=== PATIENT | female | born 1960 | race African-American/Black ===

== ENCOUNTER 2016-10-28 15:35 | Inpatient (IN) | payer OTHER ==
[2016-10-28 16:07] VITALS: BMI 27.1
--- NOTE | 2016-10-28 18:21 | HP ---
CIWA Score - CIWA Score Nausea/Vomitin Muscle Tremors: 3 Anxiety: 3 Agitation: 3 Paroxysmal Sweats: 2 Orientation: 0-Oriented Tacttile Disturbances: 2-Mild Itch/Numbness/Burn Auditory Disturbances: 2-Mild Harshness/Frighten Visual Disturbances: 2-Mild Sensitivity Headache: 2-Mild CIWA-Ar Total Score: 22 Admission ROS BHS - HPI Chief Complaint: I NEED HELP TO STOP DRINKING ALCOHOL AND COCAINE Allergies/Adverse Reactions: Allergies Allergy/AdvReac Type Severity Reaction Status Date / Time mushroom Allergy Severe Rash Verified 10/28/16 17:48 No Known Drug Allergies Allergy Verified 10/28/16 17:48 salmon Allergy Severe Difficulty Uncoded 05/07/16 15:27 Breathing NKDA Allergy Uncoded 05/07/16 15:27 History of Present Illness: THIS 56 YEARS OLD FEMLE WITH ALCOHOL AND COCIANE DEPENDENCE,WITHDRAWAL SYMPTOM, LAST DETOX [facility] 05/07/16 TO 05/09/16 SYNCOPE ALCOHOL RELATED ASTHMA LONGEST SOBRIETY 3 YEARS SCHIZOPHRENIA ANXIETY AND DEPRESSION INSOMNIA NEED HELP TO STOP DRINKING Exam Limitations: No Limitations - Ebola screening Have you traveled outside of the country in the last 21 days: No (N) Have you had contact with anyone from an Ebola affected area: No Have you been sick,other than usual withdrawal symptoms: No Do you have a fever: No - Review of Systems Constitutional: Diaphoresis, Loss of Appetite, Malaise, Night Sweats, Changes in sleep, Weakness EENT: reports: Nose Congestion Respiratory: reports: Other (ASTHMA) Cardiac: reports: Palpitations GI: reports: Constipated, Nausea, Vomiting, Abdominal cramping : reports: No Symptoms Reported Musculoskeletal: reports: Back Pain, Muscle Pain Integumentary: reports: Dryness Neuro: reports: Headache, Tremors Endocrine: reports: No Symptoms Reported Hematology: reports: No Symptoms Reported Psychiatric: reports: Anxious, Depressed, other (SCHIZOPHRENIA) Patient History - Patient Medical History Hx Anemia: No Hx Asthma: Yes (ON ALBUTEROL INHALER) Hx Chronic Obstructive Pulmonary Disease (COPD): No Hx Cancer: No Hx Cardiac Disorders: No Hx Congestive Heart Failure: No Hx Hypertension: Yes (NO MED) Hx Hypercholesterolemia: No Hx Pacemaker: No HX Cerebrovascular Accident: No Hx Seizures: No Hx Dementia: No Hx Diabetes: No Hx Gastrointestinal Disorders: No Hx Liver Disease: No Hx Genitourinary Disorders: No Hx Sexually Transmitted Disorders: No Hx Renal Disease (ESRD): No Hx Thyroid Disease: No Hx Human Immunodeficiency Virus (HIV): No (negative LAST 05/07/16) Hx Hepatitis C: No Hx Depression: Yes (ANXIETY) Hx Suicide Attempt: No Hx Bipolar Disorder: No Hx Schizophrenia: Yes Other Medical History: NO SUICIDAL,NO HOMICIDAL - Patient Surgical History Past Surgical History: Yes Hx Neurologic Surgery: No Hx Cataract Extraction: No Hx Cardiac Surgery: No Hx Lung Surgery: No Hx Breast Surgery: No Hx Breast Biopsy: No Hx Abdominal Surgery: No Hx Appendectomy: No Hx Cholecystectomy: No Hx Genitourinary Surgery: No Hx Section: Yes (x2) Hx Orthopedic Surgery: Yes (right ankle fx many yrs ago) Hx Hysterectomy: No Anesthesia Reaction: No - PPD History Previous Implant?: Yes (+PPD hx.) Documented Results: Positive w/o proof Implanted On Prior [facility] Admission?: No PPD to be Administered?: No - Reproductive History Patient is a Female of Child Bearing Age (11 -55 yrs old): Yes Last Menstrual Period: 05/08/90 Patient : No - Smoking Cessation Smoking history: Current some day smoker Have you smoked in the past 12 months: Yes Aproximately how many cigarettes per day: 7 Cigars Per Day: 0 Hx Chewing Tobacco Use: No Initiated information on smoking cessation: Yes 'Breaking Loose' booklet given: 10/28/16 - Substance & Tx. History Hx Alcohol Use: Yes Hx Substance Use: Yes Substance Use Type: Alcohol, Cocaine Hx Substance Use Treatment: Yes ([facility] 05/07/16 TO 05/09/16) - Substances Abused Alcohol Route: Oral Frequency: Daily Amount used: 1 1/2 aracelis (3) 24 oz. can Age of first use: 10 Date of Last Use: 10/28/16 Crack Route: Smoking Frequency: 3-6 times per week Amount used: $ 100 Age of first use: 28 Date of Last Use: 10/27/16 Family Disease History - Family Disease History Family Disease History: Heart Disease: Father (), Mother (), Other: Brother (only child) Admission Physical Exam BHS - Vital Signs Vital Signs: Vital Signs - 24 hr 10/28/16 16:06 Temperature 97.1 F L Pulse Rate 93 H Respiratory 20 Rate Blood Pressure 137/80 - Physical General Appearance: Yes: Moderate Distress, Tremorous, Irritable, Sweating, Anxious HEENTM: Yes: Nasal Congestion, Rhinorrhea Respiratory: Yes: Lungs Clear Neck: Yes: Within Normal Limits Breast: Yes: Breast Exam Deferred Cardiology: Yes: Within Normal Limits, Regular Rhythm, Regular Rate, S1, S2 Abdominal: Yes: Within Normal Limits, Normal Bowel Sounds, Non Tender, Flat, Soft Genitourinary: Yes: Within Normal Limits Back: Yes: Muscle Spasm Extremities: Yes: Tremors Neurological: Yes: Within Normal Limits, die maker stamping II-XII NML intact, Fully Oriented, Alert Integumentary: Yes: Dry Lymphatic: Yes: Within Normal Limits - Diagnostic (1) Alcohol dependence with uncomplicated withdrawal Current Visit: No Status: Acute (2) Asthma Current Visit: No Status: Chronic Qualifiers: Asthma severity: mild persistent Asthma complication type: uncomplicated Qualified Code(s): J45.30 - Mild persistent asthma, uncomplicated (3) Cocaine dependence Current Visit: No Status: Chronic Qualifiers: Substance use status: uncomplicated Qualified Code(s): F14.20 - Cocaine dependence, uncomplicated (4) Constipation Current Visit: No Status: Chronic Qualifiers: Constipation type: slow transit constipation Qualified Code(s): K59.01 - Slow transit constipation (5) GERD (gastroesophageal reflux disease) Current Visit: No Status: Chronic Qualifiers: Esophagitis presence: without esophagitis Qualified Code(s): K21.9 - Gastro-esophageal reflux disease without esophagitis (6) Hypertension Current Visit: No Status: Chronic Qualifiers: Hypertension type: unspecified secondary hypertension Qualified Code (s): I15.9 - Secondary hypertension, unspecified; I15 - Secondary hypertension (7) Nicotine dependence Current Visit: No Status: Chronic Qualifiers: Nicotine product type: cigarettes Substance use status: uncomplicated Qualified Code(s): F17.210 - Nicotine dependence, cigarettes, uncomplicated (8) Schizoaffective disorder Current Visit: No Status: Suspected Qualifiers: Schizoaffective disorder type: other Qualified Code(s): F25.8 - Other schizoaffective disorders (9) Syncope Current Visit: Yes Status: Acute (10) Dental abscess Current Visit: Yes Status: Acute Cleared for Admission BHS - Detox or Rehab S Level of Care: Medically Managed Detox Regimen/Protocol: Librium S Breath Alcohol Content Breath Alcohol Content: 0 Urine Pregancy Test - Result Urine Test Results: Negative- NO Line Present Urine Drug Screen - Results Drug Screen Negative: No Urine Drug Screen Results: KULWINDER-Cocaine
[2016-10-28] MEDS ORDERED: hydrOXYzine PAMOATE 50 MG CAPSULE (FP) PO PRN (18:29)
[2016-10-28] MEDS ORDERED: guaiFENesin/D-METHORPHAN HB 10 ML UNIT-DOSE CUPS PO PRN (18:29)
[2016-10-28] MEDS ORDERED: MAGNESIUM HYDROX 2400MG/30ML ORAL SUSPENSION 30 ML CUP PO PRN (18:29)
[2016-10-28] MEDS ORDERED: LOPERAMIDE HCL 2 MG CAPSULE PO PRN (18:29)
[2016-10-28] MEDS ORDERED: MAG HYDROX/AL HYDROX/SIMETH 30 ML UNIT-DOSE CUP PO PRN (18:29)
[2016-10-28] MEDS ORDERED: MENTHOL/PHENOL 1 EACH UD MM PRN (18:29)
[2016-10-28] MEDS ORDERED: MAGNESIUM CITRATE 300 ML BOTTLE PO PRN (18:29)
[2016-10-28] MEDS ORDERED: diphenhydrAMINE HCL 50 MG CAPSULE PO PRN (18:29)
[2016-10-28] MEDS ORDERED: chlordiazePOXIDE HCL 25 MG CAPSULE PO PRN (18:29)
[2016-10-28] MEDS ORDERED: ACETAMINOPHEN 325 MG TABLET (FP) PO PRN (18:29)
[2016-10-28] MEDS ORDERED: IBUPROFEN 400 MG TABLET (FP) PO PRN (18:29)
[2016-10-28] MEDS ORDERED: P-EPHED 60MG/TRIPROLIDI 2.5MG TABLET PO PRN (18:29)
[2016-10-28] MEDS ORDERED: chlordiazePOXIDE HCL 25 MG CAPSULE PO ONE (18:45)
[2016-10-28] MEDS: THIAMINE HCL 100 MG TABLET (FP) PO SCH (22:18)
[2016-10-28] MEDS: chlordiazePOXIDE HCL 25 MG CAPSULE PO SCH (22:18)
[2016-10-28] MEDS: PENICILLIN V POTASSIUM 500 MG TABLET PO SCH (23:49)
[2016-10-29] MEDS: chlordiazePOXIDE HCL 25 MG CAPSULE PO SCH ×4 (05:28→22:18)
[2016-10-29] MEDS: PENICILLIN V POTASSIUM 500 MG TABLET PO SCH ×4 (05:28→23:24)
--- NOTE | 2016-10-29 09:31 | PN ---
S CIWA - CIWA Score Nausea/Vomitin Muscle Tremors: 2 Anxiety: 3 Agitation: 3 Paroxysmal Sweats: 3 Orientation: 0-Oriented Tacttile Disturbances: 1-Very Mild Itch/Numbness Auditory Disturbances: 0-None Visual Disturbances: 0-None Headache: 1-Very Mild CIWA-Ar Total Score: 15 S Progress Note (SOAP) Subjective: interrupted sleep, sweats, constipation , Objective: 10/29/16 09:29 Vital Signs Temperature 97.5 F L 10/29/16 06:00 Pulse Rate 85 10/29/16 06:00 Respiratory Rate 18 10/29/16 06:00 Blood Pressure 138/89 10/29/16 06:00 O2 Sat by Pulse Oximetry (%) labs pending cxr pending 10/29/16 09:30 pt aox3 in nad, but irritabe , ambulating Assessment: 10/29/16 09:30 withdrawl sx's Plan: cont. detox increase fluids cxr f/up pending labs
[2016-10-29 10:12] LABS: MCH 33.4 pg (25.7-33.7); MCHC 33.1 g/dl (32.0-36.0); MEAN CELL VOLUME 100.9 fl (80-96); MEAN PLT VOLUME 7.6 fl (7.5-11.1); PLATELET COUNT 287 K/MM3 (134-434); RDW 14.5 % (11.6-15.6); WHITE BLOOD COUNT 3.7 K/mm3 (4.0-10.0)
[2016-10-29 10:22] LABS: URINE APPEARANCE CLEAR; URINE BILIRUBIN NEGATIVE (NEGATIVE); URINE COLOR STRAW; URINE GLUCOSE (UA) NEGATIVE (NEGATIVE); URINE KETONE NEGATIVE (NEGATIVE); URINE LEUK ESTERASE NEGATIVE (NEGATIVE); URINE NITRITE NEGATIVE (NEGATIVE); URINE PROTEIN NEGATIVE (NEGATIVE); URINE UROBILINOGEN NEGATIVE E.U./dl (0.2-1.0)
[2016-10-29] MEDS: PRENATAL VITAMINS W/ FOLIC ACID TABLET (FP) PO SCH (10:34)
[2016-10-29 10:35] LABS: ALBUMIN 3.4 g/dl (3.4-5.0); BILIRUBIN,TOTAL 0.3 mg/dL (0.2-1.0); CALCIUM 8.4 mg/dL (8.5-10.1); TOT PROT 6.7 g/dl (6.4-8.2); URINE BLOOD 2+ (NEGATIVE)
[2016-10-29] MEDS: NICOTINE 21 MG/24 HOURS TOPICAL PATCH TD SCH (10:35)
[2016-10-29 11:46] LABS: HIV 1 & 2 AB NEGATIVE; HIV 1 AGp24 NEGATIVE
--- NOTE | 2016-10-29 16:55 | CONSULT ---
[facility] Psychiatric Consult - Data Date of interview: 10/29/16 Admission source: [facility] Identifying data: Another admission to [facility] for this 56 y/o AA female seeking detox treatment for cocaine and alcohol dependence.Patient is single,a mother of three,homeless,unemployed and supported on SSI benefits. Substance Abuse History: - Smoking Cessation. Smoking history: Current some day smoker. Have you smoked in the past 12 months: Yes. Aproximately how many cigarettes per day: 7. Cigars Per Day: 0. Hx Chewing Tobacco Use: No. Initiated information on smoking cessation: Yes. 'Breaking Loose' booklet given : 10/28/16. - Substance & Tx. History. Hx Alcohol Use: Yes. Hx Substance Use : Yes. Substance Use Type: Alcohol, Cocaine. Hx Substance Use Treatment: Yes ( [facility] 05/07/16 TO 05/09/16). - Substances Abused. Alcohol. Route: Oral. Frequency: Daily. Amount used: 1 1/2 aracelis (3) 24 oz. can. Age of first use: 10. Date of Last Use: 10/28/16. Crack. Route: Smoking. Frequency: 3-6 times per week. Amount used: $ 100. Age of first use: 28. Date of Last Use: 10/27/16. Confirmed by the patient in this interview. Medical History: Remarkable for a history of bronchial asthma and hypertension. Psychiatric History: Patient denies history of psychiatric hospitalizations.Diagnosed with Paranoid Schizophrenia.Ms Domínguez gets psychiatric outpatient services at the [facility].Medications : risperdal 1 mg po bid.Patient admits to non-adherence to medications/ attendance to clinic.No history of suicide attempts. Physical/Sexual Abuse/Trauma History: Patient denies. Additional Comment: Urine Drug Screen Results: KULWINDER-Cocaine.Noted. Mental Status Exam - Mental Status Exam Alert and Oriented to: Time, Place, Person Cognitive Function: Good Patient Appearance: Unkempt, Disheveled Mood: Withdrawn Affect: Mood Congruent Patient Behavior: Fatigued, Cooperative Speech Pattern: Clear Voice Loudness: Normal Thought Process: Goal Oriented Thought Disorder: Bizarre Hallucinations: Denies Suicidal Ideation: Denies Homicidal Ideation: Denies Insight/Judgement: Poor Sleep: Poorly, Difficulty falling asleep Appetite: Good Muscle strength/Tone: Normal Gait/Station: Normal Psychiatric Findings - Problem List ([place] 1, 2,3) (1) Alcohol dependence with uncomplicated withdrawal Current Visit: Yes Status: Acute (2) Cocaine dependence Current Visit: Yes Status: Acute Qualifiers: Substance use status: uncomplicated Qualified Code(s): F14.20 - Cocaine dependence, uncomplicated (3) Nicotine dependence Current Visit: Yes Status: Acute Qualifiers: Nicotine product type: cigarettes Substance use status: uncomplicated Qualified Code(s): F17.210 - Nicotine dependence, cigarettes, uncomplicated (4) Substance induced mood disorder Current Visit: Yes Status: Acute (5) Paranoid schizophrenia Current Visit: Yes Status: Chronic (6) Arthritis Current Visit: Yes Status: Chronic (7) Asthma Current Visit: Yes Status: Chronic Qualifiers: Asthma severity: mild persistent Asthma complication type: uncomplicated Qualified Code(s): J45.30 - Mild persistent asthma, uncomplicated (8) GERD (gastroesophageal reflux disease) Current Visit: Yes Status: Chronic Qualifiers: Esophagitis presence: without esophagitis Qualified Code(s): K21.9 - Gastro-esophageal reflux disease without esophagitis (9) Hypertension Current Visit: No Status: Chronic Qualifiers: Hypertension type: unspecified secondary hypertension Qualified Code (s): I15.9 - Secondary hypertension, unspecified; I15 - Secondary hypertension - Initial Treatment Plan Initial Treatment Plan: Psychoeducation.Detoxification.Risperdal 1 mg po bid.Side effects/benefits discussed with the patien.Made aware of risk of abnormal involuntary movements,endocrine abnormalities (galactorrhea, gynecomastia,sexual dysfunction),metabolic syndrome,EPS (dystonias,akathisia, dyskinesias).Zolpidem 5 mg po hs prn is ordered for insomnia.Made aware of risk of parasomnias.Patient aknowledges understanding of information and she ( verbally) consents to take risperdal.Observation.
[2016-10-29] MEDS ORDERED: ZOLPIDEM TARTRATE 5 MG TABLET PO PRN (17:13)
[2016-10-29] MEDS ORDERED: ALBUTEROL SO4 6.7 GM HFA INHALER IH PRN (17:22)
--- NOTE | 2016-10-29 21:35 | EKG ---
Test Reason : Blood Pressure : / mmHG Vent. Rate : 088 BPM Atrial Rate : 088 BPM P-R Int : 132 ms QRS Dur : 092 ms QT Int : 390 ms P-R-T Axes : 077 053 050 degrees QTc Int : 471 ms NORMAL SINUS RHYTHM POSSIBLE LEFT ATRIAL ENLARGEMENT BORDERLINE ECG NO PREVIOUS ECGS AVAILABLE Confirmed by ROD KOLB, AZUL ([id number]) on 10/29/2016 9:35:13 PM Referred By: Confirmed By:AZUL VELASCO MD
[2016-10-29] MEDS: BUDESONIDE/FORMETEROL FUMARATE 80/4.5 mcg INHALER IH SCH (22:17)
[2016-10-29] MEDS: RANITIDINE HCL 150 MG TABLET (FP) PO SCH (22:18)
[2016-10-29] MEDS: MONTELUKAST NA 10 MG TABLET PO SCH (22:18)
[2016-10-29] MEDS: THIAMINE HCL 100 MG TABLET (FP) PO SCH (22:18)
[2016-10-29] MEDS: risperiDONE 1 MG TABLET (FP) PO SCH (22:18)
[2016-10-30] MEDS: chlordiazePOXIDE HCL 25 MG CAPSULE PO SCH ×3 (05:43→18:12)
[2016-10-30] MEDS: PENICILLIN V POTASSIUM 500 MG TABLET PO SCH ×4 (05:43→23:37)
[2016-10-30] MEDS: risperiDONE 1 MG TABLET (FP) PO SCH ×2 (10:45→22:26)
[2016-10-30] MEDS: RANITIDINE HCL 150 MG TABLET (FP) PO SCH ×2 (10:45→22:26)
[2016-10-30] MEDS: NICOTINE 21 MG/24 HOURS TOPICAL PATCH TD SCH (10:46)
[2016-10-30] MEDS: BUDESONIDE/FORMETEROL FUMARATE 80/4.5 mcg INHALER IH SCH ×2 (10:46→22:27)
[2016-10-30] MEDS: PRENATAL VITAMINS W/ FOLIC ACID TABLET (FP) PO SCH (10:46)
--- NOTE | 2016-10-30 10:51 | PN ---
S CIWA - CIWA Score Nausea/Vomitin-No Nausea/No Vomiting Muscle Tremors: 3 Anxiety: 3 Agitation: 3 Paroxysmal Sweats: 3 Orientation: 0-Oriented Tacttile Disturbances: 0-None Auditory Disturbances: 0-None Visual Disturbances: 0-None Headache: 1-Very Mild CIWA-Ar Total Score: 13 BHS Progress Note (SOAP) Subjective: sweats interrupted sleep agitation Objective: 10/30/16 10:50 Vital Signs Temperature 96.8 F L 10/30/16 10:15 Pulse Rate 96 H 10/30/16 10:15 Respiratory Rate 10/30/16 10:15 Blood Pressure 126/76 10/30/16 10:15 O2 Sat by Pulse Oximetry (%) Laboratory Tests 10/29/16 10/29/16 10/29/16 06:00 06:00 08:00 WBC 3.7 L RBC 3.85 Hgb 12.9 Hct 38.9 MCV 100.9 H MCHC 33.1 RDW 14.5 Plt Count 287 D MPV 7.6 Sodium Potassium Chloride Carbon Dioxide Anion Gap BUN Creatinine Creat Clearance w eGFR Random Glucose Calcium Total Bilirubin AST ALT Alkaline Phosphatase Total Protein Albumin Urine Color Urine Appearance Urine pH Ur Specific [place] Urine Protein Urine Glucose (UA) Urine Ketones Urine Blood Urine Nitrite Urine Bilirubin Urine Urobilinogen Ur Leukocyte Esterase RPR Titer Nonreactive HIV 1&2 Antibody Screen Negative HIV P24 Antigen Negative 10/29/16 10/29/16 08:00 08:00 WBC RBC Hgb Hct MCV MCHC RDW Plt Count MPV Sodium 144 Potassium 4.0 Chloride 107 Carbon Dioxide 26 Anion Gap 11 BUN 22 H D Creatinine 1.0 Creat Clearance w eGFR 57.35 Random Glucose 108 H D Calcium 8.4 L Total Bilirubin 0.3 AST 18 D ALT 31 D Alkaline Phosphatase 82 Total Protein 6.7 Albumin 3.4 Urine Color Straw Urine Appearance Clear Urine pH 6.0 Ur Specific [place] 1.010 Urine Protein Negative Urine Glucose (UA) Negative Urine Ketones Negative Urine Blood 2+ H Urine Nitrite Negative Urine Bilirubin Negative Urine Urobilinogen Negative Ur Leukocyte Esterase Negative RPR Titer HIV 1&2 Antibody Screen HIV P24 Antigen awake/alert ambulating no acute distress Assessment: 10/30/16 10:51 withdrawal sx Plan: continue detox increase fluids
[2016-10-30] MEDS: THIAMINE HCL 100 MG TABLET (FP) PO SCH (22:26)
[2016-10-30] MEDS: MONTELUKAST NA 10 MG TABLET PO SCH (22:26)
[2016-10-30] MEDS: chlordiazePOXIDE 5 MG CAPSULE PO SCH (22:28)
[2016-10-31] MEDS: PENICILLIN V POTASSIUM 500 MG TABLET PO SCH ×3 (07:11→18:09)
[2016-10-31] MEDS: chlordiazePOXIDE 5 MG CAPSULE PO SCH ×3 (07:11→17:50)
[2016-10-31] MEDS ORDERED: ZOLPIDEM TARTRATE 10 MG TABLET (PARK CARE ONLY) PO PRN (08:49)
--- NOTE | 2016-10-31 10:01 | PN ---
BHS Progress Note (SOAP) Subjective: interrupted sleep, but feeling better Objective: 10/31/16 10:00 Vital Signs Temperature 98.2 F 10/31/16 09:52 Pulse Rate 99 H 10/31/16 09:52 Respiratory Rate 20 10/31/16 09:52 Blood Pressure 145/86 10/31/16 09:52 O2 Sat by Pulse Oximetry (%) Laboratory Tests 10/29/16 10/29/16 10/29/16 06:00 06:00 08:00 WBC 3.7 L RBC 3.85 Hgb 12.9 Hct 38.9 MCV 100.9 H MCHC 33.1 RDW 14.5 Plt Count 287 D MPV 7.6 Sodium Potassium Chloride Carbon Dioxide Anion Gap BUN Creatinine Creat Clearance w eGFR Random Glucose Calcium Total Bilirubin AST ALT Alkaline Phosphatase Total Protein Albumin Urine Color Urine Appearance Urine pH Ur Specific [place] Urine Protein Urine Glucose (UA) Urine Ketones Urine Blood Urine Nitrite Urine Bilirubin Urine Urobilinogen Ur Leukocyte Esterase RPR Titer Nonreactive HIV 1&2 Antibody Screen Negative HIV P24 Antigen Negative 10/29/16 10/29/16 08:00 08:00 WBC RBC Hgb Hct MCV MCHC RDW Plt Count MPV Sodium 144 Potassium 4.0 Chloride 107 Carbon Dioxide 26 Anion Gap 11 BUN 22 H D Creatinine 1.0 Creat Clearance w eGFR 57.35 Random Glucose 108 H D Calcium 8.4 L Total Bilirubin 0.3 AST 18 D ALT 31 D Alkaline Phosphatase 82 Total Protein 6.7 Albumin 3.4 Urine Color Straw Urine Appearance Clear Urine pH 6.0 Ur Specific [place] 1.010 Urine Protein Negative Urine Glucose (UA) Negative Urine Ketones Negative Urine Blood 2+ H Urine Nitrite Negative Urine Bilirubin Negative Urine Urobilinogen Negative Ur Leukocyte Esterase Negative RPR Titer HIV 1&2 Antibody Screen HIV P24 Antigen 10/31/16 10:15 pt aox3 in nad ambulating Assessment: 10/31/16 10:00 withdrawal sx;s 10/31/16 10:16 Plan: cont, detox increase fluids d/c in am rehab in am
[2016-10-31] MEDS: risperiDONE 1 MG TABLET (FP) PO SCH ×2 (10:08→22:10)
[2016-10-31] MEDS: RANITIDINE HCL 150 MG TABLET (FP) PO SCH ×2 (10:08→22:10)
[2016-10-31] MEDS: PRENATAL VITAMINS W/ FOLIC ACID TABLET (FP) PO SCH (10:08)
[2016-10-31] MEDS: BUDESONIDE/FORMETEROL FUMARATE 80/4.5 mcg INHALER IH SCH ×2 (10:09→22:10)
[2016-10-31] MEDS: NICOTINE 21 MG/24 HOURS TOPICAL PATCH TD SCH (10:10)
--- NOTE | 2016-10-31 12:40 | PN ---
Psychiatric Progress Note Vital Signs: Vital Signs Period Temp Pulse Resp BP Sys/[place] Pulse Ox Last 24 Hr 97.5 F-98.2 F 91-105 18-20 119-145/77-86 Date of Session: 10/31/16 Chief Complaint:: Insomnia HPI: Patient reports insomnia, reports neeeds Ambien order to fall asleep Current Medications: Active Medications Generic Name Dose Route Start Last Admin Trade Name Freq PRN Reason Stop Dose Admin Acetaminophen 650 mg 10/28/16 18:29 10/30/16 19:14 Tylenol - PO 650 mg Q4H PRN Administration FEVER OR PAIN Al Hydroxide/Mg Hydroxide 30 ml 10/28/16 18:29 10/29/16 11:46 Mylanta Oral Suspension - PO 30 ml Q6H PRN Administration DYSPEPSIA Albuterol Sulfate 2 puff 10/29/16 17:22 Ventolin Hfa Inhaler - IH Q4H PRN ASTHMA Budesonide/Formoterol Fumarate 2 puff 10/29/16 22:00 10/31/16 10:09 Symbicort 80/4.5mcg - IH Not Given BID HUBER Chlordiazepoxide HCl 10 mg 10/31/16 23:00 Librium - PO 11/01/16 17:01 [id number] HUBER Chlordiazepoxide HCl 25 mg 10/28/16 18:29 Librium - PO 10/31/16 18:28 Q4H PRN WITHDRAWAL(CONT SUBST) Chlordiazepoxide HCl 15 mg 10/30/16 23:00 10/31/16 10:10 Librium - PO 10/31/16 17:01 Not Given [id number] HUBER Diphenhydramine HCl 50 mg 10/28/16 18:29 Benadryl - PO HSMR1 PRN INSOMNIA Eucalyptus/Menthol/Phenol/Sorbitol 1 each 10/28/16 18:29 Cepastat Lozenge - MM Q4H PRN SORE THROAT Guaifenesin 10 ml 10/28/16 18:29 Robitussin Dm - PO Q6H PRN COUGH Hydroxyzine Pamoate 50 mg 10/28/16 18:29 Vistaril - PO Q4H PRN AGITATION Ibuprofen 400 mg 10/28/16 18:29 Motrin - PO Q6H PRN SEVERE PAIN Loperamide HCl 4 mg 10/28/16 18:29 Imodium - PO Q6H PRN DIARRHEA Magnesium Citrate 300 ml 10/28/16 18:29 10/29/16 08:51 Citroma - PO 300 ml Q48H PRN Administration CONSTIPATION Magnesium Hydroxide 30 ml 10/28/16 18:29 10/28/16 22:48 Milk Of Magnesia - PO 30 ml DAILY PRN Administration CONSTIPATION Montelukast Sodium 10 mg 10/29/16 22:00 10/30/16 22:26 Singulair - PO 10 mg HS [facility] Administration Nicotine 21 mg 10/29/16 10:00 10/31/16 10:10 Nicoderm Patch - TD Not Given DAILY [facility] Penicillin V Potassium 500 mg 10/29/16 00:00 10/31/16 12:15 Pen Vee K - PO 500 mg Q6HPO [facility] Administration Multivit/Folic Acid/Iron 1 tab 10/29/16 10:00 10/31/16 10:08 Vitamins (Sjr) - PO 1 tab DAILY [facility] Administration Pseudoephedrine/Triprolidine 1 combo 10/28/16 18:29 Actifed - PO TID PRN NASAL CONGESTION Ranitidine HCl 150 mg 10/29/16 22:00 10/31/16 10:08 Zantac - PO 150 mg BID HUBER Administration Risperidone 1 mg 10/29/16 22:00 10/31/16 10:08 Risperdal - PO 1 mg BID HUBER Administration Thiamine HCl 100 mg 10/28/16 22:00 10/30/16 22:26 Vitamin B1 - PO 100 mg HS [facility] Administration Zolpidem Tartrate 10 mg 10/31/16 08:49 Ambien - PO 11/01/16 17:12 HS PRN INSOMNIA Medication(s) Change(s): Ambien 10mg po prn qhs for insomnia Mental Status Exam - Mental Status Exam Alert and Oriented to: Person Cognitive Function: Fair Patient Appearance: Unkempt Mood: Sad Affect: Mood Congruent Patient Behavior: Cooperative Speech Pattern: Delayed Voice Loudness: Mildly Soft/Quiet Thought Process: Goal Oriented Thought Disorder: Being Controlled Hallucinations: Denies Suicidal Ideation: Denies Homicidal Ideation: Denies Insight/Judgement: Fair Appetite: Weight loss Muscle strength/Tone: Normal Gait/Station: Shuffling Additional Comments: Ambien 10mg po prn qhs for insomnia Psychiatric Treatment Plan - Problem List (1) Alcohol dependence with uncomplicated withdrawal Current Visit: Yes (2) Cocaine dependence Current Visit: Yes Qualifiers: Substance use status: uncomplicated Qualified Code(s): F14.20 - Cocaine dependence, uncomplicated (3) Nicotine dependence Current Visit: Yes Qualifiers: Nicotine product type: cigarettes Substance use status: uncomplicated Qualified Code(s): F17.210 - Nicotine dependence, cigarettes, uncomplicated (4) Substance induced mood disorder Current Visit: Yes (5) Asthma Current Visit: Yes Qualifiers: Asthma severity: mild persistent Asthma complication type: uncomplicated Qualified Code(s): J45.30 - Mild persistent asthma, uncomplicated (6) Paranoid schizophrenia Current Visit: Yes (7) Hypertension Current Visit: No Qualifiers: Hypertension type: unspecified secondary hypertension Qualified Code (s): I15.9 - Secondary hypertension, unspecified; I15 - Secondary hypertension (8) Schizoaffective disorder Current Visit: No Qualifiers: Schizoaffective disorder type: other Qualified Code(s): F25.8 - Other schizoaffective disorders Initial treatment plan: Ambien 10mg po prn qhs for insomnia
[2016-10-31] MEDS: amLODIPine BESYLATE 5 MG TABLET (FP) PO SCH (17:13)
[2016-10-31] MEDS: THIAMINE HCL 100 MG TABLET (FP) PO SCH (22:10)
[2016-10-31] MEDS: MONTELUKAST NA 10 MG TABLET PO SCH (22:10)
[2016-10-31] MEDS: chlordiazePOXIDE HCL 10 MG CAPSULE PO SCH (22:34)
[2016-11-01] MEDS: PENICILLIN V POTASSIUM 500 MG TABLET PO SCH ×2 (00:45→05:21)
[2016-11-01] MEDS: chlordiazePOXIDE HCL 10 MG CAPSULE PO SCH (05:21)
[2016-11-01 10:01] VITALS: BP 125/85; PULSE 108; TEMP 97.7
[2016-11-01] MEDS: PRENATAL VITAMINS W/ FOLIC ACID TABLET (FP) PO SCH (10:22)
[2016-11-01] MEDS: amLODIPine BESYLATE 5 MG TABLET (FP) PO SCH (10:24)
[2016-11-01] MEDS: RANITIDINE HCL 150 MG TABLET (FP) PO SCH (10:24)
[2016-11-01] MEDS: risperiDONE 1 MG TABLET (FP) PO SCH (10:25)
[2016-11-01] MEDS: NICOTINE 21 MG/24 HOURS TOPICAL PATCH TD SCH (11:03)
[2016-11-01] MEDS: BUDESONIDE/FORMETEROL FUMARATE 80/4.5 mcg INHALER IH SCH (11:04)
--- NOTE | 2016-11-01 15:02 | DS ---
[facility] Detox Discharge Summary Admission Date: 10/28/16 Discharge Date: 11/01/16 - History Present History: Alcohol Dependence, Cocaine Dependence Additional Comments: ADVISED PATIENT TO FOLLOW-UP WITH [facility] / REHAB MEDICAL PROVIDER AFTER DISCHARGE FROM DETOX FOR GENERAL MEDICAL ASSESSMENT AND FOR ABNORMAL LAB VALUES. Pertinent Past History: HTN, Asthma, Depression, GERD, Schizophrenia. - Physical Exam Results Vital Signs: Vital Signs Temperature 97.7 F 11/01/16 10:00 Pulse Rate 108 H 11/01/16 10:00 Respiratory Rate 16 11/01/16 10:00 Blood Pressure 125/85 11/01/16 10:00 O2 Sat by Pulse Oximetry (%) Pertinent Admission Physical Exam Findings: WITHDRAWAL SYMPTOMS. Laboratory Last Values WBC 3.7 K/mm3 (4.0-10.0) L 10/29/16 08:00 RBC 3.85 M/mm3 (3.60-5.2) 10/29/16 08:00 Hgb 12.9 GM/dL (10.7-15.3) 10/29/16 08:00 Hct 38.9 % (32.4-45.2) 10/29/16 08:00 MCV 100.9 fl (80-96) H 10/29/16 08:00 MCHC 33.1 g/dl (32.0-36.0) 10/29/16 08:00 RDW 14.5 % (11.6-15.6) 10/29/16 08:00 Plt Count 287 K/MM3 (134-434) D 10/29/16 08:00 MPV 7.6 fl (7.5-11.1) 10/29/16 08:00 Sodium 144 mmol/L (136-145) 10/29/16 08:00 Potassium 4.0 mmol/L (3.5-5.1) 10/29/16 08:00 Chloride 107 mmol/L (98-107) 10/29/16 08:00 Carbon Dioxide 26 mmol/L (21-32) 10/29/16 08:00 Anion Gap 11 (8-16) 10/29/16 08:00 BUN 22 mg/dL (7-18) H D 10/29/16 08:00 Creatinine 1.0 mg/dL (0.55-1.02) 10/29/16 08:00 Creat Clearance w eGFR 57.35 (>60) 10/29/16 08:00 Random Glucose 108 mg/dL (74-106) H D 10/29/16 08:00 Calcium 8.4 mg/dL (8.5-10.1) L 10/29/16 08:00 Total Bilirubin 0.3 mg/dL (0.2-1.0) 10/29/16 08:00 AST 18 U/L (15-37) D 10/29/16 08:00 ALT 31 U/L (12-78) D 10/29/16 08:00 Alkaline Phosphatase 82 U/L (45-117) 10/29/16 08:00 Total Protein 6.7 g/dl (6.4-8.2) 10/29/16 08:00 Albumin 3.4 g/dl (3.4-5.0) 10/29/16 08:00 Urine Color Straw 10/29/16 08:00 Urine Appearance Clear 10/29/16 08:00 Urine pH 6.0 (5.0-8.0) 10/29/16 08:00 Ur Specific [place] 1.010 (1.001-1.035) 10/29/16 08:00 Urine Protein Negative (NEGATIVE) 10/29/16 08:00 Urine Glucose (UA) Negative (NEGATIVE) 10/29/16 08:00 Urine Ketones Negative (NEGATIVE) 10/29/16 08:00 Urine Blood 2+ (NEGATIVE) H 10/29/16 08:00 Urine Nitrite Negative (NEGATIVE) 10/29/16 08:00 Urine Bilirubin Negative (NEGATIVE) 10/29/16 08:00 Urine Urobilinogen Negative E.U./dl (0.2-1.0) 10/29/16 08:00 Ur Leukocyte Esterase Negative (NEGATIVE) 10/29/16 08:00 RPR Titer Nonreactive (NONREACTIVE) 10/29/16 06:00 HIV 1&2 Antibody Screen Negative 10/29/16 06:00 HIV P24 Antigen Negative 10/29/16 06:00 LABS NOTED. - Treatment Hospital Course: Detox Protocol Followed, Detoxed Safely, Responded well, Discharged Condition Good, Rehab Referral Accepted Patient has Accepted a Rehab Referral to: YES. - Medication Discharge Medications: Ambulatory Orders Alendronate Sodium [Binosto] 70 mg PO WEEKLY 02/13/16 Albuterol Sulfate Inhaler - [Ventolin HFA Inhaler -] 2 inh PO Q4H PRN #1 inhaler 02/17/16 Fluticasone Prop 0.05% Nasal [Flonase -] 1 - 2 spray NS DAILY #1 spray 02/17/16 Fluticasone/Salmeterol [Advair 250-50 Diskus] 1 each IH BID #1 disk.w.dev Montelukast Na [Singulair -] 10 mg PO HS #30 tablet 02/17/16 Pantoprazole Sodium [Protonix -] 40 mg PO DAILY #0 tablet.ec 02/17/16 Amlodipine Besylate 5 mg PO DAILY 05/07/16 Multivitamins [Tab-A-Vit -] 1 tab PO DAILY 05/07/16 Risperidone [Risperdal -] 1 mg PO DAILY 10/28/16 Risperidone [Risperdal] 2 mg PO HS #30 tablet 10/29/16 Penicillin V Potassium [Pen Vee K -] 500 mg PO QID #16 tablet 11/01/16 - Diagnosis (1) Alcohol dependence with uncomplicated withdrawal Status: Acute (2) Cocaine dependence Status: Acute Qualifiers: Substance use status: uncomplicated Qualified Code(s): F14.20 - Cocaine dependence, uncomplicated (3) Dental abscess Status: Acute (4) Nicotine dependence Status: Chronic Qualifiers: Nicotine product type: cigarettes Substance use status: uncomplicated Qualified Code(s): F17.210 - Nicotine dependence, cigarettes, uncomplicated (5) Substance induced mood disorder Status: Acute (6) Syncope Status: Acute Qualifiers: Syncope type: unspecified Qualified Code(s): R55 - Syncope and collapse (7) Asthma Status: Chronic Qualifiers: Asthma severity: mild persistent Asthma complication type: uncomplicated Qualified Code(s): J45.30 - Mild persistent asthma, uncomplicated (8) Constipation Status: Chronic Qualifiers: Constipation type: unspecified constipation type Qualified Code(s): K59.00 - Constipation, unspecified (9) GERD (gastroesophageal reflux disease) Status: Chronic Qualifiers: Esophagitis presence: without esophagitis Qualified Code(s): K21.9 - Gastro-esophageal reflux disease without esophagitis (10) Hypertension Status: Chronic Qualifiers: Hypertension type: unspecified secondary hypertension Qualified Code (s): I15.9 - Secondary hypertension, unspecified; I15 - Secondary hypertension (11) Schizoaffective disorder Status: Suspected Qualifiers: Schizoaffective disorder type: other Qualified Code(s): F25.8 - Other schizoaffective disorders (12) Arthritis Status: Chronic - AMA Did Patient Leave Against Medical Advice: No
== END 2016-11-01 11:08 | disposition short-term general hospital (02) | DRG 774 ==
LOC: YASAS 15:35 → Y6N 18:34
PROVIDERS: ADMIT Internal Medicine; ATTEND Internal Medicine Addiction Medicine
PROC: HZ2ZZZZ Detoxification Services for Substance Abuse Treatment (ICD-10-PCS; principal; 2016-11-01)
DX: F10.230 Alcohol dependence with withdrawal, uncomplicated (principal); F14.20 Cocaine dependence, uncomplicated; F17.210 Nicotine dependence, cigarettes, uncomplicated; F19.24 Other psychoactive substance dependence with psychoactive substance-induced mood disorder; F20.0 Paranoid schizophrenia; J45.30 Mild persistent asthma, uncomplicated; I15.9 Secondary hypertension, unspecified; K21.9 Gastro-esophageal reflux disease without esophagitis; M12.9 Arthropathy, unspecified; R55 Syncope and collapse; K04.7 Periapical abscess without sinus
CPT/HCPCS: 36415; 71020-TC; 80053; 81003; 81015; 85027; 86593; 87389; 93005; 93010; J2794

== ENCOUNTER 2017-02-25 10:36 | Inpatient (IN) | payer OTHER ==
[2017-02-25 11:45] VITALS: BMI 29.1
--- NOTE | 2017-02-25 14:26 | HP ---
CIWA Score - CIWA Score Nausea/Vomitin-No Nausea/No Vomiting Muscle Tremors: 4-Moderate,w/Arms Extend Anxiety: 4-Mod. Anxious/Guarded Agitation: 4-Moderately Restless Paroxysmal Sweats: 1-Minimal Palms Moist Orientation: 0-Oriented Tacttile Disturbances: 3-Moderate Itch/Numb/Burn Auditory Disturbances: 0-None Visual Disturbances: 0-None Headache: 0-None Present CIWA-Ar Total Score: 16 Admission ROS BHS - HPI Chief Complaint: DETOX TX FOR ALCOHOL DEPENDENCE Allergies/Adverse Reactions: Allergies Allergy/AdvReac Type Severity Reaction Status Date / Time mushroom Allergy Severe Rash Verified 02/25/17 12:25 No Known Drug Allergies Allergy Verified 02/25/17 12:25 salmon Allergy Severe Difficulty Uncoded 02/25/17 12:25 Breathing NKDA Allergy Uncoded 02/25/17 12:25 History of Present Illness: 56 Y/O AA/FEMALE WITH A HX OF COCAINE AND ALCOHOL DEPENDENCE SEEKING DETOX TX Exam Limitations: No Limitations - Ebola screening Have you traveled outside of the country in the last 21 days: No Have you had contact with anyone from an Ebola affected area: No Have you been sick,other than usual withdrawal symptoms: No - Review of Systems Constitutional: Chills, Night Sweats, Changes in sleep EENT: reports: Blurred Vision, Tearing, Nose Congestion, Dental Problems ( MISSING TEETH/DENTAL ABCESS.), Throat Pain (ITCHY THROAT) Respiratory: reports: Cough, Shortness of Breath (HX ASTHMA), Wheezing, Productive cough (YELLOWISH/WHITE) Cardiac: reports: Lightheadedness GI: reports: Diarrhea, Nausea, Indigestion, Abdominal cramping : reports: No Symptoms Reported Musculoskeletal: reports: Back Pain, Joint Pain, Muscle Pain Integumentary: reports: Dryness, Rash (ITCHY FEET AND DRY), Other (CALLUSES ON FEET) Neuro: reports: Headache, Tremors, Unsteady Gait, Dizziness Endocrine: reports: No Symptoms Reported Hematology: reports: Anemia Psychiatric: reports: Orientated x3, Anxious Other Systems: Reviewed and Negative Patient History - Patient Medical History Hx Anemia: Yes Hx Asthma: Yes Hx Chronic Obstructive Pulmonary Disease (COPD): No Hx Cancer: No Hx Cardiac Disorders: No Hx Congestive Heart Failure: No Hx Hypertension: Yes Hx Hypercholesterolemia: No Hx Pacemaker: No HX Cerebrovascular Accident: No Hx Seizures: No Hx Dementia: No Hx Diabetes: No Hx Gastrointestinal Disorders: Yes (acid reflux) Hx Liver Disease: No Hx Genitourinary Disorders: No Hx Sexually Transmitted Disorders: No (DENIES) Hx Renal Disease (ESRD): No Hx Thyroid Disease: No Hx Human Immunodeficiency Virus (HIV): No (negative LAST 05/07/16) Hx Hepatitis C: No Hx Depression: Yes (AND INSOMNIA--AMBIEN ) Hx Suicide Attempt: No Hx Bipolar Disorder: No Hx Schizophrenia: Yes (RESPERIDAL) - Patient Surgical History Past Surgical History: Yes Hx Neurologic Surgery: No Hx Cataract Extraction: No Hx Cardiac Surgery: No Hx Lung Surgery: No Hx Breast Surgery: No Hx Breast Biopsy: No Hx Abdominal Surgery: No Hx Appendectomy: No Hx Cholecystectomy: No Hx Genitourinary Surgery: No Hx Section: Yes (x2) Hx Orthopedic Surgery: Yes (right ankle fx many yrs ago) Hx Hysterectomy: No Anesthesia Reaction: No - PPD History Previous Implant?: Yes Documented Results: Positive w/o proof Implanted On Prior [facility] Admission?: No PPD to be Administered?: No - Reproductive History Patient is a Female of Child Bearing Age (11 -55 yrs old): No (POST MENOPAUSAL) Last Menstrual Period: 05/08/90 Patient : No - Smoking Cessation Smoking history: Current some day smoker Have you smoked in the past 12 months: Yes Aproximately how many cigarettes per day: 7 Cigars Per Day: 0 Hx Chewing Tobacco Use: No Initiated information on smoking cessation: Yes 'Breaking Loose' booklet given: 02/25/17 - Substance & Tx. History Hx Alcohol Use: Yes (YUMIKO/BEER) Hx Substance Use: Yes (COCAINE/BEER) Substance Use Type: Alcohol, Cocaine Hx Substance Use Treatment: Yes (LAST TX AT [facility]) - Substances Abused Cocaine Route: Smoking Frequency: Daily Amount used: $50-100 Age of first use: 28 Date of Last Use: 02/25/17 Alcohol-yumiko/beer Route: Oral Frequency: Daily Amount used: 1 pt./1-6 pk. Age of first use: 10 Date of Last Use: 02/24/17 Family Disease History - Family Disease History Family Disease History: Heart Disease: Father (), Mother (), Other: Brother (only child) Admission Physical Exam BHS - Vital Signs Vital Signs: Vital Signs - 24 hr 02/25/17 11:42 Temperature 97.3 F L Pulse Rate 100 H Respiratory 18 Rate Blood Pressure 121/80 - Physical General Appearance: Yes: Moderate Distress, Irritable, Anxious HEENTM: Yes: EOMI, Normocephalic, COLIN, Nasal Congestion, Rhinorrhea Respiratory: Yes: Chest Non-Tender, No Respiratory Distress, Rhonchi (MILD SCATTERED RHONCHI) Neck: Yes: Supple, Trachea in good position Breast: Yes: Breast Exam Deferred Cardiology: Yes: Regular Rhythm, Regular Rate, S1, S2 Abdominal: Yes: Normal Bowel Sounds, Non Tender, Soft Genitourinary: Yes: Other (N/C) Back: Yes: Within Normal Limits Musculoskeletal: Yes: full range of Motion, Gait Steady Extremities: Yes: Normal Range of Motion, Non-Tender, Other (CALLUSES ON FEET; DRY SCALY) 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 NML intact, Fully Oriented, Alert Integumentary: Yes: Dry, Warm Lymphatic: Yes: Within Normal Limits - Diagnostic (1) Alcohol dependence with uncomplicated withdrawal Current Visit: Yes Status: Acute (2) Cocaine dependence Current Visit: Yes Status: Acute Qualifiers: Substance use status: in withdrawal Qualified Code(s): F14.23 - Cocaine dependence with withdrawal (3) Dental abscess Current Visit: Yes Status: Acute (4) Arthritis Current Visit: Yes Status: Chronic (5) Asthma Current Visit: Yes Status: Chronic Qualifiers: Asthma severity: mild persistent Asthma complication type: uncomplicated Qualified Code(s): J45.30 - Mild persistent asthma, uncomplicated (6) GERD (gastroesophageal reflux disease) Current Visit: Yes Status: Chronic Qualifiers: Esophagitis presence: without esophagitis Qualified Code(s): K21.9 - Gastro-esophageal reflux disease without esophagitis (7) Hypertension Current Visit: Yes Status: Chronic Qualifiers: Hypertension type: essential hypertension Qualified Code(s): I10 - Essential (primary) hypertension (8) Nicotine dependence Current Visit: Yes Status: Acute Qualifiers: Nicotine product type: cigarettes Substance use status: in withdrawal Qualified Code(s): F17.213 - Nicotine dependence, cigarettes, with withdrawal (9) Foot callus Current Visit: Yes Status: Chronic (10) Tinea pedis Current Visit: Yes Status: Acute Qualifiers: Laterality: bilateral Qualified Code(s): B35.3 - Tinea pedis Cleared for Admission [facility] - Detox or Rehab [facility] Level of Care: Medically Managed Detox Regimen/Protocol: Librium [facility] Breath Alcohol Content Breath Alcohol Content: 0 Urine Pregancy Test - Result Urine Test Results: Negative- NO Line Present Urine Drug Screen - Results Drug Screen Negative: No Urine Drug Screen Results: KULWINDER-Cocaine
[2017-02-25] MEDS ORDERED: diphenhydrAMINE HCL 50 MG CAPSULE PO PRN (14:43)
[2017-02-25] MEDS ORDERED: guaiFENesin/D-METHORPHAN HB 10 ML UNIT-DOSE CUPS PO PRN (14:43)
[2017-02-25] MEDS ORDERED: NICOTINE POLACRILEX 2 MG GUM BUC PRN (14:43)
[2017-02-25] MEDS ORDERED: ACETAMINOPHEN 325 MG TABLET (FP) PO PRN (14:43)
[2017-02-25] MEDS ORDERED: P-EPHED 60MG/TRIPROLIDI 2.5MG TABLET PO PRN (14:43)
[2017-02-25] MEDS ORDERED: LOPERAMIDE HCL 2 MG CAPSULE PO PRN (14:43)
[2017-02-25] MEDS ORDERED: MAG HYDROX/AL HYDROX/SIMETH 30 ML UNIT-DOSE CUP PO PRN (14:43)
[2017-02-25] MEDS ORDERED: MENTHOL/PHENOL 1 EACH UD MM PRN (14:43)
[2017-02-25] MEDS ORDERED: MAGNESIUM CITRATE 300 ML BOTTLE PO PRN (14:43)
[2017-02-25] MEDS ORDERED: chlordiazePOXIDE HCL 25 MG CAPSULE PO ONE (14:49)
[2017-02-25] MEDS ORDERED: ALBUTEROL SO4 6.7 GM HFA INHALER IH PRN (14:50)
[2017-02-25] MEDS: FLUTICASONE PROP 0.05% 16 GM NASAL SPRAY NS SCH (15:14)
[2017-02-25] MEDS: ASPIRIN 81 MG CHEWABLE TABLETS PO SCH (15:15)
[2017-02-25] MEDS: NICOTINE 14 MG/24 HOURS TOPICAL PATCH TD SCH (15:15)
[2017-02-25 18:01] LABS: URINE APPEARANCE CLOUDY; URINE BILIRUBIN NEGATIVE (NEGATIVE); URINE BLOOD NEGATIVE (NEGATIVE); URINE COLOR YELLOW; URINE GLUCOSE (UA) NEGATIVE (NEGATIVE); URINE KETONE NEGATIVE (NEGATIVE); URINE LEUK ESTERASE NEGATIVE (NEGATIVE); URINE NITRITE NEGATIVE (NEGATIVE); URINE PROTEIN NEGATIVE (NEGATIVE); URINE UROBILINOGEN NEGATIVE E.U./dl (0.2-1.0)
[2017-02-25] MEDS: chlordiazePOXIDE HCL 25 MG CAPSULE PO SCH ×2 (18:10→22:29)
[2017-02-25] MEDS: AMOX TR/POT CLAV 875MG/125MG TABLETS (FP) PO SCH (18:21)
[2017-02-25] MEDS: BUDESONIDE/FORMETEROL FUMARATE 80/4.5 mcg INHALER IH SCH (22:27)
[2017-02-25] MEDS: ATORVASTATIN CA 10 MG TABLET (FP) PO SCH (22:27)
[2017-02-25] MEDS: MONTELUKAST NA 10 MG TABLET PO SCH (22:27)
[2017-02-25] MEDS: THIAMINE HCL 100 MG TABLET (FP) PO SCH (22:27)
[2017-02-25] MEDS: chlordiazePOXIDE HCL 25 MG CAPSULE PO PRN (22:28)
[2017-02-25] MEDS: TOLNAFTATE 1% CREAM 15 GM TUBE TP SCH (22:29)
[2017-02-26] MEDS: chlordiazePOXIDE HCL 25 MG CAPSULE PO SCH ×5 (05:17→22:45)
[2017-02-26] MEDS: AMOX TR/POT CLAV 875MG/125MG TABLETS (FP) PO SCH ×2 (07:21→20:27)
--- NOTE | 2017-02-26 09:10 | CONSULT ---
[facility] Psychiatric Consult - Data Additional Comment: Observation. Deto Unit Care Protocol
--- NOTE | 2017-02-26 09:16 | CONSULT ---
[facility] Psychiatric Consult - Data Date of interview: 02/26/17 Admission source: [facility] Identifying data: This is 56 years old female with no psychiatric hospitalization history intoxicated with: Alcohol, Cocaine and Nicotine Substance Abuse History: - Smoking Cessation. Smoking history: Current some day smoker. Have you smoked in the past 12 months: Yes. Aproximately how many cigarettes per day: 7. Cigars Per Day: 0. Hx Chewing Tobacco Use: No. Initiated information on smoking cessation: Yes. 'Breaking Loose' booklet given : 02/25/17. - Substance & Tx. History. Hx Alcohol Use: Yes (YUMIKO/BEER). Hx Substance Use: Yes (COCAINE/BEER). Substance Use Type: Alcohol, Cocaine. Hx Substance Use Treatment: Yes (LAST TX AT [facility]). - Substances Abused. Cocaine. Route: Smoking. Frequency: Daily. Amount used: $50-100. Age of first use: 28. Date of Last Use: 02/25/17. Alcohol-yumiko/beer. Route: Oral. Frequency: Daily. Amount used: 1 pt./1-6 pk. Age of first use: 10. Date of Last Use: 02/24/17 Medical History: Asthma, Arthritis, GERD, HTN, Syncope history, PPD + history Psychiatric History: As per computer patient has a history of Paranoid Schizophrenia, Schizoaffective disorder, patient reports no psychiatric hospitalization , reports taking prior to admission: Risperdal 2mg po qhs. Ambien 10mg p[o qhs Physical/Sexual Abuse/Trauma History: Denies Additional Comment: Risperdal 2mg po qhs. Ambien 10mg p[o qhs Mental Status Exam - Mental Status Exam Alert and Oriented to: Person Cognitive Function: Fair Patient Appearance: Unkempt Mood: Sad Affect: Mood Congruent Patient Behavior: Cooperative Speech Pattern: Appropriate Voice Loudness: Mildly Soft/Quiet Thought Process: Goal Oriented Thought Disorder: Being Controlled Hallucinations: Denies Suicidal Ideation: Denies Homicidal Ideation: Denies Insight/Judgement: Fair Sleep: Difficulty falling asleep Appetite: Weight gain Muscle strength/Tone: Mild Hypertonicity Gait/Station: Shuffling Additional Comments: Risperdal 2mg po qhs. Ambien 10mg p[o qhs Psychiatric Findings - Problem List ([place] 1, 2,3) (1) Alcohol dependence with uncomplicated withdrawal Current Visit: Yes Status: Acute (2) Cocaine dependence Current Visit: Yes Status: Acute Qualifiers: Substance use status: in withdrawal Qualified Code(s): F14.23 - Cocaine dependence with withdrawal (3) Nicotine dependence Current Visit: Yes Status: Acute Qualifiers: Nicotine product type: cigarettes Substance use status: in withdrawal Qualified Code(s): F17.213 - Nicotine dependence, cigarettes, with withdrawal (4) Substance induced mood disorder Current Visit: No Status: Acute (5) Crack cocaine use Current Visit: No Status: Chronic (6) Paranoid schizophrenia Current Visit: No Status: Chronic (7) Schizoaffective disorder Current Visit: No Status: Suspected Qualifiers: Schizoaffective disorder type: other Qualified Code(s): F25.8 - Other schizoaffective disorders - Initial Treatment Plan Initial Treatment Plan: Risperdal 2mg po qhs. Ambien 10mg p[o qhs
[2017-02-26 09:47] LABS: MCH 32.6 pg (25.7-33.7); MCHC 33.1 g/dl (32.0-36.0); MEAN CELL VOLUME 98.7 fl (80-96); MEAN PLT VOLUME 7.8 fl (7.5-11.1); PLATELET COUNT 297 K/MM3 (134-434); RDW 15.3 % (11.6-15.6); WHITE BLOOD COUNT 4.6 K/mm3 (4.0-10.0)
[2017-02-26 10:11] LABS: ALBUMIN 3.9 g/dl (3.4-5.0); ANION GAP 9 (8-16); CALCIUM 9.3 mg/dL (8.5-10.1); CO2 28 mmol/L (21-32); GLUCOSE,RANDOM 114 mg/dL (74-106)
[2017-02-26 10:15] LABS: ALK PHOS 79 U/L (45-117); BILIRUBIN,TOTAL 0.5 mg/dL (0.2-1.0); CREATININE 1.2 mg/dL (0.55-1.02); SGOT/AST 25 U/L (15-37); SGPT/ALT 30 U/L (12-78); TOT PROT 7.6 g/dl (6.4-8.2)
[2017-02-26] MEDS: BUDESONIDE/FORMETEROL FUMARATE 80/4.5 mcg INHALER IH SCH (10:39)
[2017-02-26] MEDS: PRENATAL VITAMINS W/ FOLIC ACID TABLET (FP) PO SCH (10:39)
[2017-02-26] MEDS: ASPIRIN 81 MG CHEWABLE TABLETS PO SCH (10:39)
[2017-02-26] MEDS: FLUTICASONE PROP 0.05% 16 GM NASAL SPRAY NS SCH (10:39)
[2017-02-26] MEDS: TOLNAFTATE 1% CREAM 15 GM TUBE TP SCH (10:39)
[2017-02-26] MEDS: NICOTINE 14 MG/24 HOURS TOPICAL PATCH TD SCH (10:40)
[2017-02-26] MEDS: chlordiazePOXIDE HCL 25 MG CAPSULE PO PRN (10:46)
[2017-02-26 11:04] LABS: HIV 1 & 2 AB NEGATIVE; HIV 1 AGp24 NEGATIVE
--- NOTE | 2017-02-26 11:05 | EKG ---
Test Reason : Blood Pressure : / mmHG Vent. Rate : 089 BPM Atrial Rate : 089 BPM P-R Int : 138 ms QRS Dur : 082 ms QT Int : 384 ms P-R-T Axes : 078 053 050 degrees QTc Int : 467 ms NORMAL SINUS RHYTHM POSSIBLE LEFT ATRIAL ENLARGEMENT BORDERLINE ECG WHEN COMPARED WITH ECG OF 28-OCT-2016 19:38, NO SIGNIFICANT CHANGE WAS FOUND Confirmed by KELLY KOLB, ABBY ([id number]) on 02/26/2017 11:05:07 AM Referred By: Dino Gatica Confirmed By:ABBY MENDOZA MD
--- NOTE | 2017-02-26 13:07 | PN ---
S CIWA - CIWA Score Nausea/Vomitin Muscle Tremors: 2 Anxiety: 3 Agitation: 2 Paroxysmal Sweats: 3 Orientation: 0-Oriented Tacttile Disturbances: 1-Very Mild Itch/Numbness Auditory Disturbances: 0-None Visual Disturbances: 0-None Headache: 0-None Present CIWA-Ar Total Score: 13 BHS Progress Note (SOAP) Subjective: interruted sleep, mild sweats and shakes Vital Signs Temperature 97.8 F 02/26/17 10:00 Pulse Rate 75 02/26/17 10:00 Respiratory Rate 18 02/26/17 10:00 Blood Pressure 126/77 02/26/17 10:00 O2 Sat by Pulse Oximetry (%) Laboratory Tests 02/25/17 02/25/17 02/26/17 06:00 15:00 06:00 WBC 4.6 RBC 4.09 Hgb 13.3 Hct 40.3 MCV 98.7 H MCHC 33.1 RDW 15.3 Plt Count 297 MPV 7.8 Sodium Potassium Chloride Carbon Dioxide Anion Gap BUN Creatinine Creat Clearance w eGFR Random Glucose Calcium Total Bilirubin AST ALT Alkaline Phosphatase Total Protein Albumin Urine Color Yellow Urine Appearance Cloudy Urine pH 5.0 Ur Specific [place] 1.020 Urine Protein Negative Urine Glucose (UA) Negative Urine Ketones Negative Urine Blood Negative Urine Nitrite Negative Urine Bilirubin Negative Urine Urobilinogen Negative Ur Leukocyte Esterase Negative RPR Titer HIV 1&2 Antibody Screen Negative HIV P24 Antigen Negative 02/26/17 02/26/17 06:00 06:00 WBC RBC Hgb Hct MCV MCHC RDW Plt Count MPV Sodium 142 Potassium 4.2 Chloride 105 Carbon Dioxide 28 Anion Gap 9 BUN 19 H Creatinine 1.2 H Creat Clearance w eGFR 46.47 Random Glucose 114 H Calcium 9.3 Total Bilirubin 0.5 D AST 25 D ALT 30 Alkaline Phosphatase 79 Total Protein 7.6 Albumin 3.9 Urine Color Urine Appearance Urine pH Ur Specific [place] Urine Protein Urine Glucose (UA) Urine Ketones Urine Blood Urine Nitrite Urine Bilirubin Urine Urobilinogen Ur Leukocyte Esterase RPR Titer Nonreactive HIV 1&2 Antibody Screen HIV P24 Antigen pt aox3 in nad ambulating Objective: 02/26/17 13:06
[2017-02-26] MEDS ORDERED: ZOLPIDEM TARTRATE 10 MG TABLET (PARK CARE ONLY) PO PRN (22:00)
[2017-02-26] MEDS: THIAMINE HCL 100 MG TABLET (FP) PO SCH (22:45)
[2017-02-26] MEDS: MONTELUKAST NA 10 MG TABLET PO SCH (22:45)
[2017-02-26] MEDS: risperiDONE 2 MG TABLET PO SCH (22:45)
[2017-02-26] MEDS: ATORVASTATIN CA 10 MG TABLET (FP) PO SCH (22:45)
[2017-02-27] MEDS: TOLNAFTATE 1% CREAM 15 GM TUBE TP SCH ×3 (00:01→22:50)
[2017-02-27] MEDS: BUDESONIDE/FORMETEROL FUMARATE 80/4.5 mcg INHALER IH SCH ×3 (00:01→22:49)
[2017-02-27] MEDS: IBUPROFEN 400 MG TABLET (FP) PO PRN ×2 (04:56→12:21)
[2017-02-27] MEDS: chlordiazePOXIDE HCL 25 MG CAPSULE PO SCH ×2 (04:56→12:15)
[2017-02-27] MEDS: AMOX TR/POT CLAV 875MG/125MG TABLETS (FP) PO SCH ×2 (08:49→20:21)
[2017-02-27] MEDS ORDERED: LIDOCAINE 5% TOPICAL PATCH TP ONE (09:07)
--- NOTE | 2017-02-27 09:07 | PN ---
S CIWA - CIWA Score Nausea/Vomitin Muscle Tremors: 2 Anxiety: 2 Agitation: 2 Paroxysmal Sweats: 3 Orientation: 0-Oriented Tacttile Disturbances: 2-Mild Itch/Numbness/Burn Auditory Disturbances: 0-None Visual Disturbances: 0-None Headache: 0-None Present CIWA-Ar Total Score: 13 BHS Progress Note (SOAP) Subjective: interrupted sleep, sweats, lbp Objective: 02/27/17 09:05 Vital Signs Temperature 96.9 F L 02/27/17 06:00 Pulse Rate 95 H 02/27/17 06:00 Respiratory Rate 20 02/27/17 06:00 Blood Pressure 129/84 02/27/17 06:00 O2 Sat by Pulse Oximetry (%) Laboratory Tests 02/25/17 02/25/17 02/26/17 06:00 15:00 06:00 WBC 4.6 RBC 4.09 Hgb 13.3 Hct 40.3 MCV 98.7 H MCHC 33.1 RDW 15.3 Plt Count 297 MPV 7.8 Sodium Potassium Chloride Carbon Dioxide Anion Gap BUN Creatinine Creat Clearance w eGFR Random Glucose Calcium Total Bilirubin AST ALT Alkaline Phosphatase Total Protein Albumin Urine Color Yellow Urine Appearance Cloudy Urine pH 5.0 Ur Specific [place] 1.020 Urine Protein Negative Urine Glucose (UA) Negative Urine Ketones Negative Urine Blood Negative Urine Nitrite Negative Urine Bilirubin Negative Urine Urobilinogen Negative Ur Leukocyte Esterase Negative RPR Titer HIV 1&2 Antibody Screen Negative HIV P24 Antigen Negative 02/26/17 02/26/17 06:00 06:00 WBC RBC Hgb Hct MCV MCHC RDW Plt Count MPV Sodium 142 Potassium 4.2 Chloride 105 Carbon Dioxide 28 Anion Gap 9 BUN 19 H Creatinine 1.2 H Creat Clearance w eGFR 46.47 Random Glucose 114 H Calcium 9.3 Total Bilirubin 0.5 D AST 25 D ALT 30 Alkaline Phosphatase 79 Total Protein 7.6 Albumin 3.9 Urine Color Urine Appearance Urine pH Ur Specific [place] Urine Protein Urine Glucose (UA) Urine Ketones Urine Blood Urine Nitrite Urine Bilirubin Urine Urobilinogen Ur Leukocyte Esterase RPR Titer Nonreactive HIV 1&2 Antibody Screen HIV P24 Antigen pt aox3 in nad ambulating Assessment: 02/27/17 09:06 withdrawal sx's lbp Plan: cont. detox increase fluids lidocaine patch/d motrin prn,
[2017-02-27] MEDS: FLUTICASONE PROP 0.05% 16 GM NASAL SPRAY NS SCH (12:16)
[2017-02-27] MEDS: PRENATAL VITAMINS W/ FOLIC ACID TABLET (FP) PO SCH (12:16)
[2017-02-27] MEDS: ASPIRIN 81 MG CHEWABLE TABLETS PO SCH (12:16)
[2017-02-27] MEDS: NICOTINE 14 MG/24 HOURS TOPICAL PATCH TD SCH (12:20)
[2017-02-27] MEDS: chlordiazePOXIDE 5 MG CAPSULE PO SCH ×2 (20:22→22:23)
[2017-02-27] MEDS ORDERED: LIDOCAINE PATCH REMOVAL MC SCH (22:00)
[2017-02-27] MEDS: THIAMINE HCL 100 MG TABLET (FP) PO SCH (22:23)
[2017-02-27] MEDS: MONTELUKAST NA 10 MG TABLET PO SCH (22:23)
[2017-02-27] MEDS: ATORVASTATIN CA 10 MG TABLET (FP) PO SCH (22:23)
[2017-02-27] MEDS: risperiDONE 2 MG TABLET PO SCH (22:23)
[2017-02-27] MEDS: LIDOCAINE PATCH REMOVAL MC SCH (22:24)
[2017-02-27] MEDS: MAGNESIUM HYDROX 2400MG/30ML ORAL SUSPENSION 30 ML CUP PO PRN (22:27)
[2017-02-28] MEDS: chlordiazePOXIDE 5 MG CAPSULE PO SCH ×2 (07:48→10:57)
[2017-02-28] MEDS: AMOX TR/POT CLAV 875MG/125MG TABLETS (FP) PO SCH ×2 (08:06→17:20)
[2017-02-28] MEDS: PRENATAL VITAMINS W/ FOLIC ACID TABLET (FP) PO SCH (10:54)
[2017-02-28] MEDS: BUDESONIDE/FORMETEROL FUMARATE 80/4.5 mcg INHALER IH SCH ×2 (10:55→22:12)
[2017-02-28] MEDS: LIDOCAINE 5% TOPICAL PATCH TP SCH (10:55)
[2017-02-28] MEDS: ASPIRIN 81 MG CHEWABLE TABLETS PO SCH (10:55)
[2017-02-28] MEDS: FLUTICASONE PROP 0.05% 16 GM NASAL SPRAY NS SCH (10:55)
[2017-02-28] MEDS: NICOTINE 14 MG/24 HOURS TOPICAL PATCH TD SCH (10:56)
[2017-02-28] MEDS: TOLNAFTATE 1% CREAM 15 GM TUBE TP SCH ×2 (10:56→22:19)
[2017-02-28] MEDS ORDERED: PANTOPRAZOLE 40 MG TABLET (FP) PO ONE (11:08)
--- NOTE | 2017-02-28 16:07 | PN ---
[facility] Progress Note (SOAP) Subjective: Sweating,interrupted sleep,restless Objective: 02/28/17 16:05 Vital Signs - 8 hr 02/28/17 02/28/17 10:00 14:00 Temperature 97.5 F L 98.1 F Pulse Rate 108 H 99 H Respiratory 18 18 Rate Blood Pressure 124/77 126/96 Laboratory Last Values WBC 4.6 K/mm3 (4.0-10.0) 02/26/17 06:00 RBC 4.09 M/mm3 (3.60-5.2) 02/26/17 06:00 Hgb 13.3 GM/dL (10.7-15.3) 02/26/17 06:00 Hct 40.3 % (32.4-45.2) 02/26/17 06:00 MCV 98.7 fl (80-96) H 02/26/17 06:00 MCHC 33.1 g/dl (32.0-36.0) 02/26/17 06:00 RDW 15.3 % (11.6-15.6) 02/26/17 06:00 Plt Count 297 K/MM3 (134-434) 02/26/17 06:00 MPV 7.8 fl (7.5-11.1) 02/26/17 06:00 Sodium 142 mmol/L (136-145) 02/26/17 06:00 Potassium 4.2 mmol/L (3.5-5.1) 02/26/17 06:00 Chloride 105 mmol/L (98-107) 02/26/17 06:00 Carbon Dioxide 28 mmol/L (21-32) 02/26/17 06:00 Anion Gap 9 (8-16) 02/26/17 06:00 BUN 19 mg/dL (7-18) H 02/26/17 06:00 Creatinine 1.2 mg/dL (0.55-1.02) H 02/26/17 06:00 Creat Clearance w eGFR 46.47 (>60) 02/26/17 06:00 Random Glucose 114 mg/dL (74-106) H 02/26/17 06:00 Calcium 9.3 mg/dL (8.5-10.1) 02/26/17 06:00 Total Bilirubin 0.5 mg/dL (0.2-1.0) D 02/26/17 06:00 AST 25 U/L (15-37) D 02/26/17 06:00 ALT 30 U/L (12-78) 02/26/17 06:00 Alkaline Phosphatase 79 U/L (45-117) 02/26/17 06:00 Total Protein 7.6 g/dl (6.4-8.2) 02/26/17 06:00 Albumin 3.9 g/dl (3.4-5.0) 02/26/17 06:00 Urine Color Yellow 02/25/17 15:00 Urine Appearance Cloudy 02/25/17 15:00 Urine pH 5.0 (5.0-8.0) 02/25/17 15:00 Ur Specific [place] 1.020 (1.005-1.025) 02/25/17 15:00 Urine Protein Negative (NEGATIVE) 02/25/17 15:00 Urine Glucose (UA) Negative (NEGATIVE) 02/25/17 15:00 Urine Ketones Negative (NEGATIVE) 02/25/17 15:00 Urine Blood Negative (NEGATIVE) 02/25/17 15:00 Urine Nitrite Negative (NEGATIVE) 02/25/17 15:00 Urine Bilirubin Negative (NEGATIVE) 02/25/17 15:00 Urine Urobilinogen Negative E.U./dl (0.2-1.0) 02/25/17 15:00 Ur Leukocyte Esterase Negative (NEGATIVE) 02/25/17 15:00 RPR Titer Nonreactive (NONREACTIVE) 02/26/17 06:00 HIV 1&2 Antibody Screen Negative 02/25/17 06:00 HIV P24 Antigen Negative 02/25/17 06:00 labs noted Assessment: 02/28/17 16:06 Withdrawal sx. Plan: Continue detox
[2017-02-28] MEDS: chlordiazePOXIDE HCL 10 MG CAPSULE PO SCH ×2 (17:20→22:13)
[2017-02-28] MEDS: MAGNESIUM HYDROX 2400MG/30ML ORAL SUSPENSION 30 ML CUP PO PRN (17:23)
[2017-02-28] MEDS: THIAMINE HCL 100 MG TABLET (FP) PO SCH (22:12)
[2017-02-28] MEDS: MONTELUKAST NA 10 MG TABLET PO SCH (22:12)
[2017-02-28] MEDS: risperiDONE 2 MG TABLET PO SCH (22:12)
[2017-02-28] MEDS: ATORVASTATIN CA 10 MG TABLET (FP) PO SCH (22:12)
[2017-02-28] MEDS: LIDOCAINE PATCH REMOVAL MC SCH (22:13)
[2017-03-01] MEDS: IBUPROFEN 400 MG TABLET (FP) PO PRN (03:31)
[2017-03-01] MEDS: chlordiazePOXIDE HCL 10 MG CAPSULE PO SCH ×2 (05:24→10:28)
[2017-03-01 06:16] VITALS: BP 136/90
[2017-03-01] MEDS: AMOX TR/POT CLAV 875MG/125MG TABLETS (FP) PO SCH (07:21)
--- NOTE | 2017-03-01 09:48 | DS ---
[facility] Detox Discharge Summary Admission Date: 02/25/17 Discharge Date: 03/01/17 - History Present History: Alcohol Dependence, Cocaine Dependence Pertinent Past History: ASTHMA GERD DENTAL ABSCESS HYPERTENSION NICOTINE DEPENDENCE TINEA PEDIS PARANOID SCHIZOPHRENIA SUBSTANCE INDUCED MOOD DISORDER - Physical Exam Results Vital Signs: Vital Signs Temperature 97.7 F 03/01/17 06:15 Pulse Rate 91 H 03/01/17 06:15 Respiratory Rate 18 03/01/17 06:15 Blood Pressure 136/90 03/01/17 06:15 O2 Sat by Pulse Oximetry (%) Pertinent Admission Physical Exam Findings: WITHDRAWAL SYMPTOM - Treatment Hospital Course: Detox Protocol Followed, Detoxed Safely, Responded well, Discharged Condition Good, Rehab Referral Accepted Patient has Accepted a Rehab Referral to: [facility] - Medication Discharge Medications: Ambulatory Orders Alendronate Sodium [Binosto] 70 mg PO WEEKLY 02/13/16 Fluticasone Prop 0.05% Nasal [Flonase -] 1 - 2 spray NS DAILY #1 spray 02/17/16 Fluticasone/Salmeterol [Advair 250-50 Diskus] 1 each IH BID #1 disk.w.dev Montelukast Na [Singulair -] 10 mg PO HS #30 tablet 02/17/16 Multivitamins [Tab-A-Vit -] 1 tab PO DAILY 05/07/16 Albuterol Sulfate Inhaler - [Ventolin HFA Inhaler -] 2 inh IH Q4H PRN 02/25/17 Aspirin [ASA -] 81 mg PO DAILY 02/25/17 Atorvastatin Ca [Lipitor] 10 mg PO HS 02/25/17 Risperidone [Risperdal] 2 mg PO HS 02/25/17 Zolpidem Tartrate [Ambien] 10 mg PO HS 02/25/17 Risperidone [Risperdal] 2 mg PO HS #30 tablet 02/26/17 - Diagnosis (1) Alcohol dependence with uncomplicated withdrawal Current Visit: Yes Status: Acute (2) Cocaine dependence Current Visit: Yes Status: Acute Qualifiers: Substance use status: in withdrawal Qualified Code(s): F14.23 - Cocaine dependence with withdrawal (3) Dental abscess Current Visit: Yes Status: Acute (4) Nicotine dependence Current Visit: Yes Status: Acute Qualifiers: Nicotine product type: cigarettes Substance use status: in withdrawal Qualified Code(s): F17.213 - Nicotine dependence, cigarettes, with withdrawal (5) Tinea pedis Current Visit: Yes Status: Acute Qualifiers: Laterality: bilateral Qualified Code(s): B35.3 - Tinea pedis (6) Arthritis Current Visit: Yes Status: Chronic (7) Asthma Current Visit: Yes Status: Chronic Qualifiers: Asthma severity: mild persistent Asthma complication type: uncomplicated Qualified Code(s): J45.30 - Mild persistent asthma, uncomplicated (8) GERD (gastroesophageal reflux disease) Current Visit: Yes Status: Chronic Qualifiers: Esophagitis presence: without esophagitis Qualified Code(s): K21.9 - Gastro-esophageal reflux disease without esophagitis (9) Hypertension Current Visit: Yes Status: Chronic Qualifiers: Hypertension type: essential hypertension Qualified Code(s): I10 - Essential (primary) hypertension (10) Substance induced mood disorder Current Visit: No Status: Acute (11) Syncope Current Visit: No Status: Acute Qualifiers: Syncope type: unspecified Qualified Code(s): R55 - Syncope and collapse (12) Paranoid schizophrenia Current Visit: No Status: Chronic - AMA Did Patient Leave Against Medical Advice: No
[2017-03-01] MEDS ORDERED: PANTOPRAZOLE 40 MG TABLET (FP) PO SCH (10:00)
[2017-03-01 10:23] VITALS: PULSE 90; TEMP 98
[2017-03-01] MEDS: ASPIRIN 81 MG CHEWABLE TABLETS PO SCH (10:27)
[2017-03-01] MEDS: FLUTICASONE PROP 0.05% 16 GM NASAL SPRAY NS SCH (10:27)
[2017-03-01] MEDS: BUDESONIDE/FORMETEROL FUMARATE 80/4.5 mcg INHALER IH SCH (10:27)
[2017-03-01] MEDS: PRENATAL VITAMINS W/ FOLIC ACID TABLET (FP) PO SCH (10:27)
[2017-03-01] MEDS: TOLNAFTATE 1% CREAM 15 GM TUBE TP SCH (10:27)
[2017-03-01] MEDS: LIDOCAINE 5% TOPICAL PATCH TP SCH (10:28)
[2017-03-01] MEDS: NICOTINE 14 MG/24 HOURS TOPICAL PATCH TD SCH (10:28)
== END 2017-03-01 12:35 | disposition other institution (70) | DRG 774 ==
LOC: YASAS 10:36 → Y6N 13:23
PROVIDERS: ADMIT Internal Medicine; ATTEND Internal Medicine
PROC: HZ2ZZZZ Detoxification Services for Substance Abuse Treatment (ICD-10-PCS; principal; 2017-03-01)
DX: F10.230 Alcohol dependence with withdrawal, uncomplicated (principal); F14.20 Cocaine dependence, uncomplicated; F17.213 Nicotine dependence, cigarettes, with withdrawal; F20.0 Paranoid schizophrenia; F19.24 Other psychoactive substance dependence with psychoactive substance-induced mood disorder; G47.00 Insomnia, unspecified; K04.7 Periapical abscess without sinus; R55 Syncope and collapse; J45.30 Mild persistent asthma, uncomplicated; I10 Essential (primary) hypertension; M12.9 Arthropathy, unspecified; B35.3 Tinea pedis
CPT/HCPCS: 36415; 80053; 81003; 85027; 86593; 87389; 93005; 93010

== ENCOUNTER 2017-03-01 12:35 | Inpatient (IN) | payer OTHER ==
[2017-03-01] MEDS ORDERED: hydrOXYzine PAMOATE 50 MG CAPSULE (FP) PO PRN (13:33)
[2017-03-01] MEDS ORDERED: P-EPHED 60MG/TRIPROLIDI 2.5MG TABLET PO PRN (13:33)
[2017-03-01] MEDS ORDERED: MENTHOL/PHENOL 1 EACH UD MM PRN (13:33)
[2017-03-01] MEDS ORDERED: MAG HYDROX/AL HYDROX/SIMETH 30 ML UNIT-DOSE CUP PO PRN (13:33)
[2017-03-01] MEDS ORDERED: MAGNESIUM CITRATE 300 ML BOTTLE PO PRN (13:33)
[2017-03-01] MEDS ORDERED: LOPERAMIDE HCL 2 MG CAPSULE PO PRN (13:33)
[2017-03-01] MEDS ORDERED: diphenhydrAMINE HCL 50 MG CAPSULE PO PRN (13:33)
[2017-03-01] MEDS ORDERED: MAGNESIUM HYDROX 2400MG/30ML ORAL SUSPENSION 30 ML CUP PO PRN (13:33)
[2017-03-01] MEDS ORDERED: guaiFENesin/D-METHORPHAN HB 10 ML UNIT-DOSE CUPS PO PRN (13:33)
[2017-03-01] MEDS ORDERED: ALBUTEROL SO4 6.7 GM HFA INHALER IH PRN (13:34)
--- NOTE | 2017-03-01 13:39 | HP ---
[facility] Rehab Assess/Revision - Admission History Admitted to Rehab from: [facility] [place] Date of Admission to Rehab: 03/01/17 - Findings Detox History & Physical reviewed: Yes Concur with findings: Yes Comments/Additional Findings: for rehab as protocol
[2017-03-01] MEDS: AMOX TR/POT CLAV 875MG/125MG TABLETS (FP) PO SCH (17:30)
[2017-03-01] MEDS: MONTELUKAST NA 10 MG TABLET PO SCH (21:39)
[2017-03-01] MEDS: THIAMINE HCL 100 MG TABLET (FP) PO SCH (21:39)
[2017-03-01] MEDS: ATORVASTATIN CA 10 MG TABLET (FP) PO SCH (21:39)
[2017-03-01] MEDS: ACETAMINOPHEN 325 MG TABLET (FP) PO PRN (21:41)
[2017-03-01] MEDS: BUDESONIDE/FORMETEROL FUMARATE 80/4.5 mcg INHALER IH SCH (21:42)
[2017-03-02] MEDS: AMOX TR/POT CLAV 875MG/125MG TABLETS (FP) PO SCH ×2 (07:35→17:35)
[2017-03-02] MEDS: PANTOPRAZOLE 40 MG TABLET (FP) PO SCH (10:09)
[2017-03-02] MEDS: PRENATAL VITAMINS W/ FOLIC ACID TABLET (FP) PO SCH (10:09)
[2017-03-02] MEDS: ASPIRIN 81 MG CHEWABLE TABLETS PO SCH (10:10)
[2017-03-02] MEDS: FLUTICASONE PROP 0.05% 16 GM NASAL SPRAY NS SCH (10:10)
[2017-03-02] MEDS: BUDESONIDE/FORMETEROL FUMARATE 80/4.5 mcg INHALER IH SCH ×2 (10:10→21:48)
[2017-03-02] MEDS: NICOTINE 14 MG/24 HOURS TOPICAL PATCH TD SCH (10:11)
[2017-03-02] MEDS: LIDOCAINE 5% TOPICAL PATCH TP SCH (10:11)
[2017-03-02] MEDS: IBUPROFEN 400 MG TABLET (FP) PO PRN (21:46)
[2017-03-02] MEDS: THIAMINE HCL 100 MG TABLET (FP) PO SCH (21:46)
[2017-03-02] MEDS: MONTELUKAST NA 10 MG TABLET PO SCH (21:46)
[2017-03-02] MEDS: ATORVASTATIN CA 10 MG TABLET (FP) PO SCH (21:46)
[2017-03-02] MEDS: risperiDONE 1 MG TABLET (FP) PO SCH (21:49)
[2017-03-03] MEDS: AMOX TR/POT CLAV 875MG/125MG TABLETS (FP) PO SCH ×2 (07:21→17:47)
--- NOTE | 2017-03-03 10:23 | HP ---
Psychiatrist Admission - Data Date of interview: 03/03/17 Admission source: detox Identifying data: This is the first admission to [address] [place] [address] for this 56 yo AA mother of 2 grown children,resides alone supported by [facility] Medical History: Significant for BA,HTN,GERD,Arthritis,Tinea Pedis. Psychiatric History: Patient has been dx with Schizophrenia .Paranoi type at school age when she was admitted to [facility] due to psychotic episode.Patient was placed on antipsychotics,no recollection of names of medications.She denies any more psychiatric hospitalizations.No history of suicidality.Patient is noncompliant with treatment,sees psychiatrsit on and off.She obtains medications from local ER.Mostrecent medicationes:Risperidone 2 mg po hs was started in Detox on prescribed by along with Ambien 10 mg po hs prn for insomnia. Physical/Sexual Abuse/Trauma History: denies Vital Signs: Vital Signs - 24 hr 03/03/17 03/03/17 03/03/17 00:30 03:30 07:50 Temperature 97.2 F L Pulse Rate 85 Respiratory 18 18 18 Rate Blood Pressure 152/87 Allergies/Adverse Reactions: Allergies Allergy/AdvReac Type Severity Reaction Status Date / Time mushroom Allergy Severe Rash Verified 02/25/17 12:25 No Known Drug Allergies Allergy Verified 02/25/17 12:25 salmon Allergy Severe Difficulty Uncoded 02/25/17 12:25 Breathing NKDA Allergy Uncoded 02/25/17 12:25 Date of last physical exam: 02/25/17 Concur with the findings of this exam: Yes - Substance Abuse/Tx History Hx Alcohol Use: Yes (reports drinking since 10 yo,vodka 1 pint daioly) Hx Substance Use: Yes (crack/cocaine since 28 yo,marijuana since 15 yo) Substance Use Type: Alcohol, Cocaine, Marijuana Hx Substance Use Treatment: Yes (completed custodial inpatient about 10 yo, clean time 3 years in 1990) - Admission Criteria Previous failed treatment: Yes Poor recovery environment: Yes Comorbidities: Yes Lacks judgement: Yes Mental Status Exam - Mental Status Exam Alert and Oriented to: Time, Place, Person Cognitive Function: Grossly Intact Patient Appearance: Unkempt Mood: Anxious Affect: Mood Congruent, Labile Patient Behavior: Cooperative Speech Pattern: Clear Voice Loudness: Normal Thought Process: Goal Oriented Thought Disorder: Not Present Hallucinations: Denies Suicidal Ideation: Denies Homicidal Ideation: Denies Insight/Judgement: Fair Sleep: Difficulty falling asleep Appetite: Good Muscle strength/Tone: Normal Gait/Station: Normal Psychiatric Findings - Problem List ([place] 1, 2,3) (1) Cocaine dependence Current Visit: Yes Status: Chronic Qualifiers: Substance use status: in withdrawal Qualified Code(s): F14.23 - Cocaine dependence with withdrawal (2) Nicotine dependence Current Visit: Yes Status: Chronic Qualifiers: Nicotine product type: cigarettes Substance use status: in withdrawal Qualified Code(s): F17.213 - Nicotine dependence, cigarettes, with withdrawal (3) Substance induced mood disorder Current Visit: Yes Status: Chronic (4) Tinea pedis Current Visit: Yes Status: Chronic Qualifiers: Laterality: bilateral Qualified Code(s): B35.3 - Tinea pedis (5) Arthritis Current Visit: Yes Status: Chronic (6) Schizophrenia Current Visit: Yes Status: Chronic (7) Asthma Current Visit: Yes Status: Chronic Qualifiers: Asthma severity: mild persistent Asthma complication type: uncomplicated Qualified Code(s): J45.30 - Mild persistent asthma, uncomplicated (8) GERD (gastroesophageal reflux disease) Current Visit: Yes Status: Chronic Qualifiers: Esophagitis presence: without esophagitis Qualified Code(s): K21.9 - Gastro-esophageal reflux disease without esophagitis (9) Hypertension Current Visit: Yes Status: Chronic Qualifiers: Hypertension type: essential hypertension Qualified Code(s): I10 - Essential (primary) hypertension - Initial Treatment Plan Initial Treatment Plan: Continue Risperidone 2 mg po hs,Start Belsomra 10 mg po hs prn for insomnia. Will monitor progress.
[2017-03-03] MEDS: FLUTICASONE PROP 0.05% 16 GM NASAL SPRAY NS SCH (10:29)
[2017-03-03] MEDS: LIDOCAINE 5% TOPICAL PATCH TP SCH (10:29)
[2017-03-03] MEDS: ASPIRIN 81 MG CHEWABLE TABLETS PO SCH (10:29)
[2017-03-03] MEDS: PRENATAL VITAMINS W/ FOLIC ACID TABLET (FP) PO SCH (10:29)
[2017-03-03] MEDS: PANTOPRAZOLE 40 MG TABLET (FP) PO SCH (10:29)
[2017-03-03] MEDS: NICOTINE 14 MG/24 HOURS TOPICAL PATCH TD SCH (10:30)
[2017-03-03] MEDS: BUDESONIDE/FORMETEROL FUMARATE 80/4.5 mcg INHALER IH SCH ×2 (10:31→21:39)
[2017-03-03] MEDS: IBUPROFEN 400 MG TABLET (FP) PO PRN ×2 (10:32→21:40)
[2017-03-03] MEDS: THIAMINE HCL 100 MG TABLET (FP) PO SCH (21:38)
[2017-03-03] MEDS: ATORVASTATIN CA 10 MG TABLET (FP) PO SCH (21:38)
[2017-03-03] MEDS: MONTELUKAST NA 10 MG TABLET PO SCH (21:38)
[2017-03-03] MEDS: risperiDONE 1 MG TABLET (FP) PO SCH (21:38)
[2017-03-03] MEDS ORDERED: SUVOREXANT 10 MG TABLET PO PRN (22:00)
[2017-03-04] MEDS: ACETAMINOPHEN 325 MG TABLET (FP) PO PRN ×2 (04:10→20:06)
[2017-03-04] MEDS: AMOX TR/POT CLAV 875MG/125MG TABLETS (FP) PO SCH ×2 (07:40→17:33)
[2017-03-04] MEDS: NICOTINE 14 MG/24 HOURS TOPICAL PATCH TD SCH (10:32)
[2017-03-04] MEDS: LIDOCAINE 5% TOPICAL PATCH TP SCH (10:33)
[2017-03-04] MEDS: BUDESONIDE/FORMETEROL FUMARATE 80/4.5 mcg INHALER IH SCH ×2 (10:34→21:30)
[2017-03-04] MEDS: PRENATAL VITAMINS W/ FOLIC ACID TABLET (FP) PO SCH (10:34)
[2017-03-04] MEDS: PANTOPRAZOLE 40 MG TABLET (FP) PO SCH (10:34)
[2017-03-04] MEDS: ASPIRIN 81 MG CHEWABLE TABLETS PO SCH (10:34)
[2017-03-04] MEDS: FLUTICASONE PROP 0.05% 16 GM NASAL SPRAY NS SCH (10:35)
[2017-03-04] MEDS ORDERED: PT OWN MED DRAWER 7, Y5N ONE ×2 (12:09→20:08)
[2017-03-04] MEDS: ATORVASTATIN CA 10 MG TABLET (FP) PO SCH (21:28)
[2017-03-04] MEDS: MONTELUKAST NA 10 MG TABLET PO SCH (21:29)
[2017-03-04] MEDS: risperiDONE 1 MG TABLET (FP) PO SCH (21:29)
[2017-03-04] MEDS: THIAMINE HCL 100 MG TABLET (FP) PO SCH (21:30)
[2017-03-04] MEDS: IBUPROFEN 400 MG TABLET (FP) PO PRN (21:32)
[2017-03-05] MEDS: AMOX TR/POT CLAV 875MG/125MG TABLETS (FP) PO SCH ×2 (07:24→18:17)
[2017-03-05] MEDS: PANTOPRAZOLE 40 MG TABLET (FP) PO SCH (10:36)
[2017-03-05] MEDS: PRENATAL VITAMINS W/ FOLIC ACID TABLET (FP) PO SCH (10:36)
[2017-03-05] MEDS: ASPIRIN 81 MG CHEWABLE TABLETS PO SCH (10:36)
[2017-03-05] MEDS: FLUTICASONE PROP 0.05% 16 GM NASAL SPRAY NS SCH (10:37)
[2017-03-05] MEDS: LIDOCAINE 5% TOPICAL PATCH TP SCH (10:38)
[2017-03-05] MEDS: BUDESONIDE/FORMETEROL FUMARATE 80/4.5 mcg INHALER IH SCH ×2 (10:46→21:32)
[2017-03-05] MEDS: NICOTINE 14 MG/24 HOURS TOPICAL PATCH TD SCH (10:46)
[2017-03-05] MEDS: THIAMINE HCL 100 MG TABLET (FP) PO SCH (21:32)
[2017-03-05] MEDS: ATORVASTATIN CA 10 MG TABLET (FP) PO SCH (21:32)
[2017-03-05] MEDS: risperiDONE 1 MG TABLET (FP) PO SCH (21:32)
[2017-03-05] MEDS: MONTELUKAST NA 10 MG TABLET PO SCH (21:32)
[2017-03-05] MEDS ORDERED: PT OWN MED DRAWER 7, Y5N ONE (22:49)
[2017-03-06] MEDS: AMOX TR/POT CLAV 875MG/125MG TABLETS (FP) PO SCH ×2 (07:44→18:35)
[2017-03-06] MEDS ORDERED: PT OWN MED DRAWER 7, Y5N ONE ×2 (08:53→20:19)
[2017-03-06] MEDS: FLUTICASONE PROP 0.05% 16 GM NASAL SPRAY NS SCH (09:46)
[2017-03-06] MEDS: PRENATAL VITAMINS W/ FOLIC ACID TABLET (FP) PO SCH (09:46)
[2017-03-06] MEDS: PANTOPRAZOLE 40 MG TABLET (FP) PO SCH (09:46)
[2017-03-06] MEDS: ASPIRIN 81 MG CHEWABLE TABLETS PO SCH (09:46)
[2017-03-06] MEDS: BUDESONIDE/FORMETEROL FUMARATE 80/4.5 mcg INHALER IH SCH ×2 (09:46→21:33)
[2017-03-06] MEDS: LIDOCAINE 5% TOPICAL PATCH TP SCH (09:47)
[2017-03-06] MEDS: NICOTINE 14 MG/24 HOURS TOPICAL PATCH TD SCH ×2 (09:47→10:24)
[2017-03-06] MEDS ORDERED: diphenhydrAMINE HCL 25 MG CAPSULE (FP) PO PRN (10:29)
[2017-03-06] MEDS ORDERED: diphenhydrAMINE HCL 25 MG CAPSULE (FP) PO ONE (10:33)
[2017-03-06] MEDS: HYDROCORTISONE 1% TOPICAL CREAM 30 GM TUBE TP SCH ×3 (13:08→21:34)
[2017-03-06] MEDS: ATORVASTATIN CA 10 MG TABLET (FP) PO SCH (21:33)
[2017-03-06] MEDS: risperiDONE 1 MG TABLET (FP) PO SCH (21:33)
[2017-03-06] MEDS: THIAMINE HCL 100 MG TABLET (FP) PO SCH (21:33)
[2017-03-06] MEDS: MONTELUKAST NA 10 MG TABLET PO SCH (21:36)
[2017-03-06] MEDS: IBUPROFEN 400 MG TABLET (FP) PO PRN (21:36)
[2017-03-07 06:36] VITALS: BP 132/88; PULSE 94; TEMP 97.7
[2017-03-07] MEDS: AMOX TR/POT CLAV 875MG/125MG TABLETS (FP) PO SCH (07:36)
[2017-03-07] MEDS ORDERED: PT OWN MED DRAWER 7, Y5N ONE (08:47)
--- NOTE | 2017-03-07 09:08 | PN ---
Psychiatric Progress Note Vital Signs: Vital Signs Period Temp Pulse Resp BP Sys/[place] Pulse Ox Last 24 Hr 97.7 F 94 18-18 132/88 Date of Session: 03/07/17 Chief Complaint:: Discharge visit HPI: Patient address Cocaine dependence and Alcohol dependence comorbid with Schizophrenia.Paranoid type. ROS: Significant for Chronic arthritis,GERD,BA,Tinea pedis. Current Medications: Active Medications Generic Name Dose Route Start Last Admin Trade Name Freq PRN Reason Stop Dose Admin Acetaminophen 650 mg 03/01/17 13:33 03/04/17 20:06 Tylenol - PO 650 mg Q4H PRN Administration FEVER OR PAIN Al Hydroxide/Mg Hydroxide 30 ml 03/01/17 13:33 Mylanta Oral Suspension - PO Q6H PRN DYSPEPSIA Albuterol Sulfate 2 puff 03/01/17 13:34 Ventolin Hfa Inhaler - IH Q4H PRN ASTHMA Amoxicillin/Clavulanate Potassium 1 tab 03/01/17 17:30 03/07/17 07:36 Augmentin - 875mg Tablet PO 1 tab BID@0800,1730 HUBER Administration Aspirin 81 mg 03/02/17 10:00 03/06/17 09:46 Asa - PO 81 mg DAILY HUBER Administration Atorvastatin Calcium 10 mg 03/01/17 22:00 03/06/17 21:33 Lipitor - PO 10 mg HS HUBER Administration Budesonide/Formoterol Fumarate 2 puff 03/01/17 22:00 03/06/17 21:33 Symbicort 80/4.5mcg - IH 2 inhaler BID HUBER Administration Diphenhydramine HCl 25 mg 03/06/17 10:29 Benadryl - PO Q4H PRN FOR ITCHING Eucalyptus/Menthol/Phenol/Sorbitol 1 each 03/01/17 13:33 Cepastat Lozenge - MM Q4H PRN SORE THROAT Fluticasone Propionate 2 spray 03/02/17 10:00 03/06/17 09:46 Flonase - NS 2 spray DAILY HUBER Administration Guaifenesin 10 ml 03/01/17 13:33 Robitussin Dm - PO Q6H PRN COUGH Hydrocortisone 1 applic 03/06/17 14:00 03/06/17 21:34 Hytone 1% Cream - TP Not Given QID HUBER Hydroxyzine Pamoate 50 mg 03/01/17 13:33 03/06/17 10:25 Vistaril - PO 50 mg Q4H PRN Administration AGITATION Ibuprofen 400 mg 03/01/17 13:33 03/06/17 21:36 Motrin - PO 400 mg Q6H PRN Administration PAIN Lidocaine 3 patch 03/03/17 13:12 03/06/17 09:47 Lidoderm Patch - TP 3 patch DAILY HUBER Administration Loperamide HCl 4 mg 03/01/17 13:33 Imodium - PO Q6H PRN DIARRHEA Magnesium Hydroxide 30 ml 03/01/17 13:33 Milk Of Magnesia - PO DAILY PRN CONSTIPATION Montelukast Sodium 10 mg 03/01/17 22:00 03/06/17 21:36 Singulair - PO 10 mg HS HUBER Administration Nicotine 14 mg 03/02/17 10:00 03/06/17 10:24 Nicoderm Patch - TD 14 mg DAILY HUBER Administration Pantoprazole Sodium 40 mg 03/02/17 10:00 03/06/17 09:46 Protonix - PO 40 mg DAILY HUBER Administration Multivit/Folic Acid/Iron 1 tab 03/02/17 10:00 03/06/17 09:46 Vitamins (Sjr) - PO 1 tab DAILY HUBER Administration Pseudoephedrine/Triprolidine 1 combo 03/01/17 13:33 Actifed - PO TID PRN NASAL CONGESTION Risperidone 2 mg 03/02/17 22:00 03/06/17 21:33 Risperdal - PO 2 mg HS HUBER Administration Thiamine HCl 100 mg 03/01/17 22:00 03/06/17 21:33 Vitamin B1 - PO 100 mg HS HUBER Administration Current Side Effect: No Lab tests ordered: No Lab tests reviewed: Yes Provider note:: Patient complted this program today(Early discharge due to family reason).Patient didnt meet her treatment goals yet and victor hugo continue to address her issues on outpatient basis [facility].Patient continus to find that Risperidone 2 mg po hs helps to reduce her mood instability,psychotic symptoms.Script for 30 days provided. Supportive therapy provided .Relapse prevention has been discussed including coping skills, support system utilization o maintain recovery. Patient is stable for discharge today. Total face to face time:: 30 Mental Status Exam - Mental Status Exam Alert and Oriented to: Time, Place, Person Cognitive Function: Grossly Intact Patient Appearance: Unkempt Mood: Euthymic Affect: Mood Congruent Patient Behavior: Cooperative Speech Pattern: Clear Voice Loudness: Normal Thought Process: Goal Oriented Thought Disorder: Being Controlled Hallucinations: Denies Suicidal Ideation: Denies Homicidal Ideation: Denies Insight/Judgement: Fair Sleep: Fair Appetite: Good Muscle strength/Tone: Normal Gait/Station: Normal Psychiatric Treatment Plan - Problem List (1) Cocaine dependence Current Visit: Yes Qualifiers: Substance use status: in withdrawal Qualified Code(s): F14.23 - Cocaine dependence with withdrawal (2) Nicotine dependence Current Visit: Yes Qualifiers: Nicotine product type: cigarettes Substance use status: in withdrawal Qualified Code(s): F17.213 - Nicotine dependence, cigarettes, with withdrawal (3) Substance induced mood disorder Current Visit: Yes (4) Tinea pedis Current Visit: Yes Qualifiers: Laterality: bilateral Qualified Code(s): B35.3 - Tinea pedis (5) Arthritis Current Visit: Yes (6) Asthma Current Visit: Yes Qualifiers: Asthma severity: mild persistent Asthma complication type: uncomplicated Qualified Code(s): J45.30 - Mild persistent asthma, uncomplicated (7) GERD (gastroesophageal reflux disease) Current Visit: Yes Qualifiers: Esophagitis presence: without esophagitis Qualified Code(s): K21.9 - Gastro-esophageal reflux disease without esophagitis (8) Hypertension Current Visit: Yes Qualifiers: Hypertension type: essential hypertension Qualified Code(s): I10 - Essential (primary) hypertension (9) Paranoid schizophrenia Current Visit: Yes (10) Alcohol dependence Current Visit: Yes
[2017-03-07] MEDS: PANTOPRAZOLE 40 MG TABLET (FP) PO SCH (09:31)
[2017-03-07] MEDS: ASPIRIN 81 MG CHEWABLE TABLETS PO SCH (09:31)
[2017-03-07] MEDS: PRENATAL VITAMINS W/ FOLIC ACID TABLET (FP) PO SCH (09:31)
[2017-03-07] MEDS: FLUTICASONE PROP 0.05% 16 GM NASAL SPRAY NS SCH (09:32)
[2017-03-07] MEDS: BUDESONIDE/FORMETEROL FUMARATE 80/4.5 mcg INHALER IH SCH (09:33)
[2017-03-07] MEDS: HYDROCORTISONE 1% TOPICAL CREAM 30 GM TUBE TP SCH (09:33)
[2017-03-07] MEDS: NICOTINE 14 MG/24 HOURS TOPICAL PATCH TD SCH (09:33)
[2017-03-07] MEDS: LIDOCAINE 5% TOPICAL PATCH TP SCH (09:34)
== END 2017-03-07 09:39 | disposition home or self-care (01) | DRG 772 ==
LOC: YASAS 12:35 → Y3E 12:38
PROVIDERS: ADMIT Psychiatry & Neurology Psychiatry; ATTEND Psychiatry & Neurology Psychiatry
PROC: HZ42ZZZ Group Counseling for Substance Abuse Treatment, Cognitive-Behavioral (ICD-10-PCS; principal; 2017-03-07)
DX: F10.20 Alcohol dependence, uncomplicated (principal); F14.20 Cocaine dependence, uncomplicated; F17.213 Nicotine dependence, cigarettes, with withdrawal; F19.24 Other psychoactive substance dependence with psychoactive substance-induced mood disorder; F20.0 Paranoid schizophrenia; I10 Essential (primary) hypertension; J45.30 Mild persistent asthma, uncomplicated; M18.9 Osteoarthritis of first carpometacarpal joint, unspecified; B35.3 Tinea pedis
CPT/HCPCS: J2794

== ENCOUNTER 2017-05-27 14:45 | Inpatient (IN) | payer OTHER ==
[2017-05-27 18:26] VITALS: BMI 29.1
--- NOTE | 2017-05-27 20:16 | HP ---
CIWA Score - CIWA Score Nausea/Vomitin Muscle Tremors: 3 Anxiety: 4-Mod. Anxious/Guarded Agitation: 4-Moderately Restless Paroxysmal Sweats: 1-Minimal Palms Moist Orientation: 0-Oriented Tacttile Disturbances: 2-Mild Itch/Numbness/Burn Auditory Disturbances: 2-Mild Harshness/Frighten Visual Disturbances: 2-Mild Sensitivity Headache: 2-Mild CIWA-Ar Total Score: 23 Admission ROS [facility] - HPI Chief Complaint: C/O WITHDRAWAL SX'S; SEEKING DETOX TXMENT Allergies/Adverse Reactions: Allergies Allergy/AdvReac Type Severity Reaction Status Date / Time mushroom Allergy Severe Rash Verified 02/25/17 12:25 No Known Drug Allergies Allergy Verified 02/25/17 12:25 salmon Allergy Severe Difficulty Uncoded 02/25/17 12:25 Breathing NKDA Allergy Uncoded 02/25/17 12:25 History of Present Illness: 56 Y.O FEMALE KNOWN TO [facility] ADMITTED FOR DETOX TXMENT. SELF REFERRED. DENIES ANY DETOX/REHAB SERVICES SINCE LAST ADMISSION. 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 Exam Limitations: No Limitations - Ebola screening Have you traveled outside of the country in the last 21 days: No Have you had contact with anyone from an Ebola affected area: No Have you been sick,other than usual withdrawal symptoms: No - Review of Systems Constitutional: Chills, Malaise, Night Sweats, Changes in sleep EENT: reports: Dental Problems (C/O DENTAL ABCESS TO RLQ), Other (RUNNY NOSE SNEEZING) Respiratory: reports: Cough Cardiac: reports: No Symptoms Reported GI: reports: Nausea : reports: No Symptoms Reported Musculoskeletal: reports: Back Pain, Muscle Pain, Other (C/O RIB PAIN TO BOTH SIDES) Integumentary: reports: No Symptoms Reported Neuro: reports: No Symptoms reported Endocrine: reports: No Symptoms Reported Hematology: reports: No Symptoms Reported Psychiatric: reports: Anxious, Depressed Other Systems: Reviewed and Negative Patient History - Patient Medical History Hx Anemia: Yes Hx Asthma: Yes Hx Chronic Obstructive Pulmonary Disease (COPD): No Hx Cancer: No Hx Cardiac Disorders: No Hx Congestive Heart Failure: No Hx Hypertension: No Hx Hypercholesterolemia: No Hx Pacemaker: No HX Cerebrovascular Accident: No Hx Seizures: No Hx Dementia: No Hx Diabetes: No Hx Gastrointestinal Disorders: Yes (Acid reflux) Hx Liver Disease: No Hx Genitourinary Disorders: No Hx Sexually Transmitted Disorders: No Hx Renal Disease (ESRD): No Hx Thyroid Disease: No Hx Human Immunodeficiency Virus (HIV): No Hx Hepatitis C: No Hx Depression: Yes Hx Suicide Attempt: No Hx Bipolar Disorder: No Hx Schizophrenia: Yes Other Medical History: DENIES - Patient Surgical History Past Surgical History: Yes Hx Neurologic Surgery: No Hx Cataract Extraction: No Hx Cardiac Surgery: No Hx Lung Surgery: No Hx Breast Surgery: No Hx Breast Biopsy: No Hx Abdominal Surgery: No Hx Appendectomy: No Hx Cholecystectomy: No Hx Genitourinary Surgery: No Hx Section: Yes (x2) Hx Orthopedic Surgery: Yes (right ankle fx many yrs ago) Hx Hysterectomy: No Anesthesia Reaction: No - PPD History Previous Implant?: Yes Documented Results: Positive w/o proof Implanted On Prior [facility] Admission?: No Results: CXR 10/2016 PPD to be Administered?: No - Reproductive History Patient is a Female of Child Bearing Age (11 -55 yrs old): No Last Menstrual Period: 05/08/90 Patient : No (NEG [facility] [place]) - Smoking Cessation Smoking history: Current some day smoker Have you smoked in the past 12 months: Yes Aproximately how many cigarettes per day: 7 Cigars Per Day: 0 Hx Chewing Tobacco Use: No Initiated information on smoking cessation: Yes 'Breaking Loose' booklet given: 05/27/17 - Substance & Tx. History Hx Alcohol Use: Yes Hx Substance Use: Yes Substance Use Type: Alcohol, Cocaine Hx Substance Use Treatment: Yes ([facility]) - Substances Abused BEER/YUMIKO Route: Oral Frequency: Daily Amount used: 2/6PACKS/1PINT Age of first use: 10 Date of Last Use: 05/26/17 COCAINE Route: Smoking Frequency: Daily Amount used: $100 Age of first use: 28 Date of Last Use: 05/26/17 Family Disease History - Family Disease History Family Disease History: Heart Disease: Father (), Mother (), Other: Brother (only child) Admission Physical Exam BHS - Vital Signs Vital Signs: Vital Signs - 24 hr 05/27/17 18:19 Temperature 96 F L Pulse Rate 86 Respiratory 20 Rate Blood Pressure 133/89 - Physical General Appearance: Yes: Appropriately Dressed, Tremorous, Anxious, Other ( FACIAL HAIR) HEENTM: Yes: EOMI, Normocephalic, COLIN, Pharynx Normal Respiratory: Yes: Chest Non-Tender, Lungs Clear, Normal Breath Sounds, No Respiratory Distress, No Accessory Muscle Use Neck: Yes: No masses,lesions,Nodules, Supple, Trachea in good position Breast: Yes: Breast Exam Deferred Cardiology: Yes: Regular Rhythm, S1, S2, Tachycardia Abdominal: Yes: Normal Bowel Sounds, Non Tender, Soft, Protuberent Genitourinary: Yes: Within Normal Limits Back: Yes: Normal Inspection Musculoskeletal: Yes: Other (ENLARGED JOINTS ANKLES 2/2 OA PROCESS) Extremities: Yes: Normal Capillary Refill, Normal Range of Motion, Non-Tender, Tremors 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 intact, Fully Oriented, Alert, Motor Strength 5/5 Integumentary: Yes: Clammy Lymphatic: Yes: Within Normal Limits - Diagnostic (1) Alcohol dependence with uncomplicated withdrawal Current Visit: No Status: Chronic (2) Arthritis Current Visit: Yes Status: Chronic (3) Asthma Current Visit: Yes Status: Chronic Qualifiers: Asthma severity: mild intermittent Asthma complication type: uncomplicated Qualified Code(s): J45.20 - Mild intermittent asthma, uncomplicated (4) GERD (gastroesophageal reflux disease) Current Visit: Yes Status: Chronic Qualifiers: Esophagitis presence: without esophagitis Qualified Code(s): K21.9 - Gastro-esophageal reflux disease without esophagitis (5) Nicotine dependence Current Visit: Yes Status: Chronic Qualifiers: Nicotine product type: cigarettes Substance use status: in withdrawal Qualified Code(s): F17.213 - Nicotine dependence, cigarettes, with withdrawal (6) Cocaine dependence, uncomplicated Current Visit: Yes Status: Chronic (7) Anemia Current Visit: Yes Status: Chronic Qualifiers: Anemia type: iron deficiency Cleared for Admission [facility] - Detox or Rehab [facility] Level of Care: Medically Managed Detox Regimen/Protocol: Librium [facility] Breath Alcohol Content Breath Alcohol Content: 0 Urine Pregancy Test - Result Urine Test Results: Negative- NO Line Present Urine Drug Screen - Results Drug Screen Negative: No Urine Drug Screen Results: KULWINDER-Cocaine, MET-Methamphetamine, TCA-Tricyclic Antidepress
[2017-05-27] MEDS ORDERED: guaiFENesin/D-METHORPHAN HB 10 ML UNIT-DOSE CUPS PO PRN (20:27)
[2017-05-27] MEDS ORDERED: chlordiazePOXIDE HCL 25 MG CAPSULE PO PRN (20:27)
[2017-05-27] MEDS ORDERED: MAGNESIUM CITRATE 300 ML BOTTLE PO PRN (20:27)
[2017-05-27] MEDS ORDERED: P-EPHED 60MG/TRIPROLIDI 2.5MG TABLET PO PRN (20:27)
[2017-05-27] MEDS ORDERED: LOPERAMIDE HCL 2 MG CAPSULE PO PRN (20:27)
[2017-05-27] MEDS ORDERED: ACETAMINOPHEN 325 MG TABLET (FP) PO PRN (20:27)
[2017-05-27] MEDS ORDERED: NICOTINE POLACRILEX 2 MG GUM BC PRN (20:27)
[2017-05-27] MEDS ORDERED: diphenhydrAMINE HCL 50 MG CAPSULE PO PRN (20:27)
[2017-05-27] MEDS ORDERED: MENTHOL/PHENOL 1 EACH UD MM PRN (20:27)
[2017-05-27] MEDS ORDERED: ALBUTEROL SO4 6.7 GM HFA INHALER IH PRN (20:29)
[2017-05-27] MEDS: BUDESONIDE/FORMETEROL FUMARATE 80/4.5 mcg INHALER IH SCH (22:59)
[2017-05-27] MEDS: chlordiazePOXIDE HCL 25 MG CAPSULE PO SCH (23:00)
[2017-05-27] MEDS: MONTELUKAST NA 10 MG TABLET PO SCH (23:00)
[2017-05-27] MEDS: THIAMINE HCL 100 MG TABLET (FP) PO SCH (23:00)
[2017-05-28 01:14] LABS: URINE APPEARANCE SLCLOUDY; URINE BILIRUBIN NEGATIVE (NEGATIVE); URINE BLOOD NEGATIVE (NEGATIVE); URINE COLOR YELLOW; URINE GLUCOSE (UA) NEGATIVE (NEGATIVE); URINE KETONE NEGATIVE (NEGATIVE); URINE LEUK ESTERASE NEGATIVE (NEGATIVE); URINE NITRITE NEGATIVE (NEGATIVE); URINE PROTEIN NEGATIVE (NEGATIVE); URINE UROBILINOGEN NEGATIVE mg/dL (0.2-1.0)
[2017-05-28] MEDS: chlordiazePOXIDE HCL 25 MG CAPSULE PO SCH ×5 (05:25→22:34)
[2017-05-28] MEDS: MAG HYDROX/AL HYDROX/SIMETH 30 ML UNIT-DOSE CUP PO PRN ×2 (05:27→18:11)
[2017-05-28] MEDS ORDERED: NICOTINE POLACRILEX 4 MG GUM BUC PRN (09:33)
--- NOTE | 2017-05-28 09:54 | CONSULT ---
[facility] Psychiatric Consult - Data Date of interview: 05/28/17 Admission source: [facility] Identifying data: This is 56 years old female with no psychiatric hospitalization history, history of Schizphrenia, intoxicated wuth: Alcohol, Cocaine and Nicotine Substance Abuse History: - Smoking Cessation. Smoking history: Current some day smoker. Have you smoked in the past 12 months: Yes. Aproximately how many cigarettes per day: 7. Cigars Per Day: 0. Hx Chewing Tobacco Use: No. Initiated information on smoking cessation: Yes. 'Breaking Loose' booklet given : 05/27/17. - Substance & Tx. History. Hx Alcohol Use: Yes. Hx Substance Use : Yes. Substance Use Type: Alcohol, Cocaine. Hx Substance Use Treatment: Yes ( [facility]). - Substances Abused. BEER/YUMIKO. Route: Oral. Frequency: Daily. Amount used: 2/6PACKS/1PINT. Age of first use: 10. Date of Last Use: . COCAINE. Route: Smoking. Frequency: Daily. Amount used: $100. Age of first use: 28. Date of Last Use: 05/26/17 Medical History: Astrhma, Anemia history, Arthritis history, GERD, Yncope history, HTN Psychiatric History: As per chart patient carries Schizophrenia with current medications: Risperdal 2mg po qhs. Ambien 10mg po qhs. Denies psyhciatric hospitalization history Physical/Sexual Abuse/Trauma History: Unclear Additional Comment: Risperdal 2mg po qhs. Ambien 10mg po qhs Mental Status Exam - Mental Status Exam Alert and Oriented to: Person Cognitive Function: Fair Patient Appearance: Unkempt Mood: Apprehensive Affect: Mood Congruent Patient Behavior: Cooperative Speech Pattern: Appropriate Voice Loudness: Normal Thought Process: Goal Oriented Thought Disorder: Being Controlled Hallucinations: Denies Suicidal Ideation: Denies Homicidal Ideation: Denies Sleep: Difficulty falling asleep Appetite: Weight gain Muscle strength/Tone: Mild Hypotonicity Gait/Station: Normal Additional Comments: Risperdal 2mg po qhs. Ambien 10mg po qhs Psychiatric Findings - Problem List ([place] 1, 2,3) (1) Cocaine dependence, uncomplicated Current Visit: Yes Status: Chronic (2) Nicotine dependence Current Visit: Yes Status: Chronic Qualifiers: Nicotine product type: cigarettes Substance use status: in withdrawal Qualified Code(s): F17.213 - Nicotine dependence, cigarettes, with withdrawal (3) Alcohol dependence Current Visit: No Status: Acute (4) Alcohol dependence with uncomplicated withdrawal Current Visit: No Status: Chronic (5) Cocaine dependence Current Visit: No Status: Chronic Qualifiers: Substance use status: in withdrawal Qualified Code(s): F14.23 - Cocaine dependence with withdrawal (6) Crack cocaine use Current Visit: No Status: Chronic (7) Paranoid schizophrenia Current Visit: No Status: Chronic (8) Schizoaffective disorder Current Visit: No Status: Suspected Qualifiers: Schizoaffective disorder type: other Qualified Code(s): F25.8 - Other schizoaffective disorders - Initial Treatment Plan Initial Treatment Plan: Risperdal 2mg po qhs. Ambien 10mg po qhs
[2017-05-28 10:07] LABS: MCH 32.8 pg (25.7-33.7); MCHC 32.8 g/dl (32.0-36.0); MEAN CELL VOLUME 99.8 fl (80-96); MEAN PLT VOLUME 7.7 fl (7.5-11.1); PLATELET COUNT 251 K/MM3 (134-434); RDW 14.6 % (11.6-15.6); WHITE BLOOD COUNT 3.7 K/mm3 (4.0-10.0)
[2017-05-28 10:21] LABS: ALBUMIN 3.3 g/dl (3.4-5.0)
[2017-05-28] MEDS: NICOTINE 21 MG/24 HOURS TOPICAL PATCH TD SCH (10:22)
[2017-05-28] MEDS: PRENATAL VITAMINS W/ FOLIC ACID TABLET (FP) PO SCH (10:22)
[2017-05-28] MEDS: BUDESONIDE/FORMETEROL FUMARATE 80/4.5 mcg INHALER IH SCH ×2 (10:22→22:34)
[2017-05-28] MEDS: PANTOPRAZOLE 40 MG TABLET (FP) PO SCH (10:22)
[2017-05-28 10:25] LABS: ALK PHOS 83 U/L (45-117); ANION GAP 7 (8-16); BILIRUBIN,TOTAL 0.3 mg/dL (0.2-1.0); CALCIUM 9.1 mg/dL (8.5-10.1); CO2 31 mmol/L (21-32); CREATININE 0.9 mg/dL (0.55-1.02); GLUCOSE,RANDOM 132 mg/dL (74-106); SGOT/AST 17 U/L (15-37); SGPT/ALT 26 U/L (12-78); TOT PROT 6.9 g/dl (6.4-8.2)
--- NOTE | 2017-05-28 10:34 | EKG ---
Test Reason : Blood Pressure : / mmHG Vent. Rate : 096 BPM Atrial Rate : 096 BPM P-R Int : 128 ms QRS Dur : 084 ms QT Int : 360 ms P-R-T Axes : 076 055 052 degrees QTc Int : 454 ms NORMAL SINUS RHYTHM POSSIBLE LEFT ATRIAL ENLARGEMENT SEPTAL INFARCT , AGE UNDETERMINED ABNORMAL ECG WHEN COMPARED WITH ECG OF 25-FEB-2017 14:09, NO SIGNIFICANT CHANGE WAS FOUND Confirmed by KELLY KOLB, ABBY ([id number]) on 05/28/2017 10:34:34 AM Referred By: Confirmed By:ABBY MENDOZA MD
--- NOTE | 2017-05-28 11:41 | PN ---
S CIWA - CIWA Score Nausea/Vomitin-No Nausea/No Vomiting Muscle Tremors: 4-Moderate,w/Arms Extend Anxiety: 3 Agitation: 4-Moderately Restless Paroxysmal Sweats: 3 Orientation: 0-Oriented Tacttile Disturbances: 0-None Auditory Disturbances: 0-None Visual Disturbances: 0-None Headache: 1-Very Mild CIWA-Ar Total Score: 15 BHS Progress Note (SOAP) Subjective: irritable agitation anxiety interrupted sleep i need foot cream for my itching Objective: 05/28/17 11:38 Vital Signs Temperature 97.5 F L 05/28/17 10:25 Pulse Rate 100 H 05/28/17 10:25 Respiratory Rate 18 05/28/17 10:25 Blood Pressure 116/79 05/28/17 10:25 O2 Sat by Pulse Oximetry (%) Laboratory Tests 05/27/17 05/28/17 05/28/17 23:26 07:00 07:00 WBC 3.7 L RBC 3.96 Hgb 13.0 Hct 39.5 MCV 99.8 H MCH 32.8 MCHC 32.8 RDW 14.6 Plt Count 251 MPV 7.7 Sodium 140 Potassium 3.3 L D Chloride 102 Carbon Dioxide 31 Anion Gap 7 L BUN 13 D Creatinine 0.9 D Creat Clearance w eGFR > 60 Random Glucose 132 H Calcium 9.1 Total Bilirubin 0.3 D AST 17 D ALT 26 Alkaline Phosphatase 83 Total Protein 6.9 Albumin 3.3 L Urine Color Yellow Urine Appearance Slcloudy Urine pH 5.0 Ur Specific [place] 1.025 Urine Protein Negative Urine Glucose (UA) Negative Urine Ketones Negative Urine Blood Negative Urine Nitrite Negative Urine Bilirubin Negative Urine Urobilinogen Negative low potassium 3.3; k-dur 40meq x 4 days aaox3 ambulating no acute distress Assessment: 05/28/17 11:40 withdrawal sx Plan: continue detox increase fluids k-dur ordered
[2017-05-28] MEDS: POTASSIUM CHLORIDE TABS 20 MEQ TABLET.ER (FP) PO SCH (11:58)
[2017-05-28] MEDS: TOLNAFTATE 1% CREAM 15 GM TUBE TP SCH ×2 (11:59→22:34)
[2017-05-28] MEDS: SIMETHICONE 80 MG TAB.CHEW (FP) PO PRN ×3 (11:59→22:10)
[2017-05-28] MEDS: MAGNESIUM HYDROX 2400MG/30ML ORAL SUSPENSION 30 ML CUP PO PRN (19:52)
[2017-05-28] MEDS: IBUPROFEN 400 MG TABLET (FP) PO PRN (22:07)
[2017-05-28] MEDS: MONTELUKAST NA 10 MG TABLET PO SCH (22:07)
[2017-05-28] MEDS: ZOLPIDEM TARTRATE 10 MG TABLET (PARK CARE ONLY) PO PRN (22:07)
[2017-05-28] MEDS: risperiDONE 2 MG TABLET PO SCH (22:07)
[2017-05-28] MEDS: THIAMINE HCL 100 MG TABLET (FP) PO SCH (22:35)
[2017-05-29] MEDS: chlordiazePOXIDE HCL 25 MG CAPSULE PO SCH ×3 (06:14→17:21)
[2017-05-29] MEDS: IBUPROFEN 400 MG TABLET (FP) PO PRN (06:14)
[2017-05-29] MEDS: PRENATAL VITAMINS W/ FOLIC ACID TABLET (FP) PO SCH (10:20)
[2017-05-29] MEDS: POTASSIUM CHLORIDE TABS 20 MEQ TABLET.ER (FP) PO SCH (10:20)
[2017-05-29] MEDS: BUDESONIDE/FORMETEROL FUMARATE 80/4.5 mcg INHALER IH SCH (10:20)
[2017-05-29] MEDS: TOLNAFTATE 1% CREAM 15 GM TUBE TP SCH ×2 (10:21→22:18)
[2017-05-29] MEDS: PANTOPRAZOLE 40 MG TABLET (FP) PO SCH (10:21)
[2017-05-29] MEDS: NICOTINE 21 MG/24 HOURS TOPICAL PATCH TD SCH (10:22)
[2017-05-29] MEDS: MAGNESIUM HYDROX 2400MG/30ML ORAL SUSPENSION 30 ML CUP PO PRN (12:19)
--- NOTE | 2017-05-29 12:20 | PN ---
S CIWA - CIWA Score Nausea/Vomitin-No Nausea/No Vomiting Muscle Tremors: 4-Moderate,w/Arms Extend Anxiety: 3 Agitation: 4-Moderately Restless Paroxysmal Sweats: 3 Orientation: 0-Oriented Tacttile Disturbances: 0-None Auditory Disturbances: 0-None Visual Disturbances: 0-None Headache: 0-None Present CIWA-Ar Total Score: 14 BHS Progress Note (SOAP) Subjective: sweats shakes body aches interrupted sleep Objective: 05/29/17 12:17 Vital Signs Temperature 98.1 F 05/29/17 10:00 Pulse Rate 88 05/29/17 10:00 Respiratory Rate 18 05/29/17 10:00 Blood Pressure 118/77 05/29/17 10:00 O2 Sat by Pulse Oximetry (%) Laboratory Tests 05/27/17 05/27/17 05/28/17 07:00 23:26 07:00 WBC 3.7 L RBC 3.96 Hgb 13.0 Hct 39.5 MCV 99.8 H MCH 32.8 MCHC 32.8 RDW 14.6 Plt Count 251 MPV 7.7 Sodium Potassium Chloride Carbon Dioxide Anion Gap BUN Creatinine Creat Clearance w eGFR Random Glucose Calcium Total Bilirubin AST ALT Alkaline Phosphatase Total Protein Albumin Urine Color Yellow Urine Appearance Slcloudy Urine pH 5.0 Ur Specific [place] 1.025 Urine Protein Negative Urine Glucose (UA) Negative Urine Ketones Negative Urine Blood Negative Urine Nitrite Negative Urine Bilirubin Negative Urine Urobilinogen Negative RPR Titer Hepatitis C Antibody <0.1 05/28/17 05/28/17 07:00 07:00 WBC RBC Hgb Hct MCV MCH MCHC RDW Plt Count MPV Sodium 140 Potassium 3.3 L D Chloride 102 Carbon Dioxide 31 Anion Gap 7 L BUN 13 D Creatinine 0.9 D Creat Clearance w eGFR > 60 Random Glucose 132 H Calcium 9.1 Total Bilirubin 0.3 D AST 17 D ALT 26 Alkaline Phosphatase 83 Total Protein 6.9 Albumin 3.3 L Urine Color Urine Appearance Urine pH Ur Specific [place] Urine Protein Urine Glucose (UA) Urine Ketones Urine Blood Urine Nitrite Urine Bilirubin Urine Urobilinogen RPR Titer Nonreactive Hepatitis C Antibody aaox2 ambulating no acute distress Assessment: 05/29/17 12:17 withdrawal sx Plan: continue detox increase fluids
[2017-05-29] MEDS: ASPIRIN 81 MG CHEWABLE TABLETS PO SCH (12:23)
[2017-05-29] MEDS: BUDESONIDE/FORMETEROL FUMARATE 160/4.5 mcg INHALER IH SCH ×2 (14:03→22:17)
[2017-05-29] MEDS: SIMETHICONE 80 MG TAB.CHEW (FP) PO PRN (20:01)
[2017-05-29] MEDS: risperiDONE 2 MG TABLET PO SCH (22:18)
[2017-05-29] MEDS: MONTELUKAST NA 10 MG TABLET PO SCH (22:18)
[2017-05-29] MEDS: THIAMINE HCL 100 MG TABLET (FP) PO SCH (22:18)
[2017-05-29] MEDS: ZOLPIDEM TARTRATE 10 MG TABLET (PARK CARE ONLY) PO PRN (22:18)
[2017-05-29] MEDS: chlordiazePOXIDE 5 MG CAPSULE PO SCH (22:18)
[2017-05-29] MEDS ORDERED: chlordiazePOXIDE 5 MG CAPSULE PO SCH (23:00)
[2017-05-30 07:16] VITALS: TEMP 96.3
[2017-05-30] MEDS: chlordiazePOXIDE 5 MG CAPSULE PO SCH (07:48)
[2017-05-30] MEDS ORDERED: chlordiazePOXIDE 5 MG CAPSULE PO SCH ×2 (08:44→23:00)
--- NOTE | 2017-05-30 08:54 | DS ---
[facility] Detox Discharge Summary Admission Date: 05/27/17 Discharge Date: 05/30/17 - History Present History: Alcohol Dependence Pertinent Past History: anemia, arthritis, asthma, nicotine dependene, anxiety, depression ,insomnia - Physical Exam Results Vital Signs: Vital Signs Temperature 96.3 F L 05/30/17 07:16 Pulse Rate 88 05/30/17 07:16 Respiratory Rate 18 05/30/17 07:16 Blood Pressure 145/90 05/30/17 07:16 O2 Sat by Pulse Oximetry (%) Laboratory Tests 05/27/17 05/27/17 05/28/17 07:00 23:26 07:00 WBC 3.7 L RBC 3.96 Hgb 13.0 Hct 39.5 MCV 99.8 H MCH 32.8 MCHC 32.8 RDW 14.6 Plt Count 251 MPV 7.7 Sodium Potassium Chloride Carbon Dioxide Anion Gap BUN Creatinine Creat Clearance w eGFR Random Glucose Calcium Total Bilirubin AST ALT Alkaline Phosphatase Total Protein Albumin Urine Color Yellow Urine Appearance Slcloudy Urine pH 5.0 Ur Specific [place] 1.025 Urine Protein Negative Urine Glucose (UA) Negative Urine Ketones Negative Urine Blood Negative Urine Nitrite Negative Urine Bilirubin Negative Urine Urobilinogen Negative RPR Titer Hepatitis C Antibody <0.1 05/28/17 05/28/17 07:00 07:00 WBC RBC Hgb Hct MCV MCH MCHC RDW Plt Count MPV Sodium 140 Potassium 3.3 L D Chloride 102 Carbon Dioxide 31 Anion Gap 7 L BUN 13 D Creatinine 0.9 D Creat Clearance w eGFR > 60 Random Glucose 132 H Calcium 9.1 Total Bilirubin 0.3 D AST 17 D ALT 26 Alkaline Phosphatase 83 Total Protein 6.9 Albumin 3.3 L Urine Color Urine Appearance Urine pH Ur Specific [place] Urine Protein Urine Glucose (UA) Urine Ketones Urine Blood Urine Nitrite Urine Bilirubin Urine Urobilinogen RPR Titer Nonreactive Hepatitis C Antibody hypokalemia, k supplemented Pertinent Admission Physical Exam Findings: withdrawal sx, hypokalemia on admission - Treatment Hospital Course: Detox Protocol Followed, Detoxed Safely, Responded well, Discharged Condition Good, Rehab Referral Accepted Patient has Accepted a Rehab Referral to: Yes - Medication Discharge Medications: Ambulatory Orders Fluticasone Prop 0.05% Nasal [Flonase -] 1 - 2 spray NS DAILY #1 spray 02/17/16 Multivitamins [Multivit ([facility] Formulary)] 1 tab PO DAILY 05/07/16 Risperidone [Risperdal -] 2 mg PO HS 02/25/17 Risperidone [Risperdal -] 2 mg PO HS #30 tablet 02/26/17 Lidocaine 5% Patch [Lidoderm -] 1 patch TP DAILY patch 03/01/17 Atorvastatin Ca [Lipitor] 10 mg PO HS #30 mg 03/07/17 Risperidone [Risperdal -] 2 mg PO HS #30 tablet 03/07/17 Risperidone [Risperdal -] 2 mg PO HS #30 tablet 05/28/17 Albuterol Sulfate Inhaler - [Ventolin HFA Inhaler -] 2 inh IH Q4H PRN #1 inhaler 05/30/17 Alendronate Sodium [Binosto] 70 mg PO WEEKLY 30 Days 05/30/17 Aspirin [ASA -] 81 mg PO DAILY #30 mg 05/30/17 Budesonide/Formeterol Fumarate [SYMBICORT 160/4.5mcg -] 2 puff IH BID #1 inhaler 05/30/17 Fluticasone/Salmeterol [Advair 250-50 Diskus] 1 each IH BID #1 disk.w.dev Montelukast Na [Singulair -] 10 mg PO HS #30 mg 05/30/17 Pantoprazole Sodium [Protonix -] 40 mg PO DAILY #30 mg 05/30/17 - Diagnosis (1) Alcohol dependence with uncomplicated withdrawal Current Visit: Yes Status: Chronic (2) Arthritis Current Visit: Yes Status: Chronic (3) Asthma Current Visit: Yes Status: Chronic Qualifiers: Asthma severity: mild intermittent Asthma complication type: uncomplicated Qualified Code(s): J45.20 - Mild intermittent asthma, uncomplicated (4) Cocaine dependence, uncomplicated Current Visit: Yes Status: Chronic (5) GERD (gastroesophageal reflux disease) Current Visit: Yes Status: Chronic Qualifiers: Esophagitis presence: without esophagitis Qualified Code(s): K21.9 - Gastro-esophageal reflux disease without esophagitis (6) Hypertension Current Visit: Yes Status: Chronic Qualifiers: Hypertension type: essential hypertension Qualified Code(s): I10 - Essential (primary) hypertension (7) Nicotine dependence Current Visit: Yes Status: Chronic Qualifiers: Nicotine product type: cigarettes Substance use status: uncomplicated Qualified Code(s): F17.210 - Nicotine dependence, cigarettes, uncomplicated (8) Tinea pedis Current Visit: Yes Status: Chronic Qualifiers: Laterality: bilateral Qualified Code(s): B35.3 - Tinea pedis (9) Dental abscess Current Visit: No Status: Inactive (10) Substance induced mood disorder Current Visit: Yes Status: Acute (11) Schizoaffective disorder Current Visit: No Status: Suspected Qualifiers: Schizoaffective disorder type: other Qualified Code(s): F25.8 - Other schizoaffective disorders - AMA Did Patient Leave Against Medical Advice: No
[2017-05-30] MEDS: PRENATAL VITAMINS W/ FOLIC ACID TABLET (FP) PO SCH (09:47)
[2017-05-30] MEDS: ASPIRIN 81 MG CHEWABLE TABLETS PO SCH (09:47)
[2017-05-30] MEDS: POTASSIUM CHLORIDE TABS 20 MEQ TABLET.ER (FP) PO SCH (09:47)
[2017-05-30] MEDS: PANTOPRAZOLE 40 MG TABLET (FP) PO SCH (09:47)
[2017-05-30] MEDS: TOLNAFTATE 1% CREAM 15 GM TUBE TP SCH (09:48)
[2017-05-30] MEDS: NICOTINE 21 MG/24 HOURS TOPICAL PATCH TD SCH (09:48)
[2017-05-30] MEDS: BUDESONIDE/FORMETEROL FUMARATE 160/4.5 mcg INHALER IH SCH (09:48)
[2017-05-30 10:08] VITALS: BP 126/82; PULSE 98
[2017-05-30] MEDS ORDERED: chlordiazePOXIDE HCL 10 MG CAPSULE PO SCH (23:00)
== END 2017-05-30 09:56 | disposition other institution (70) | DRG 774 ==
LOC: YASAS 14:45 → Y6N 20:47
PROVIDERS: ADMIT Internal Medicine; ATTEND Internal Medicine
PROC: HZ2ZZZZ Detoxification Services for Substance Abuse Treatment (ICD-10-PCS; principal; 2017-05-27)
DX: F10.230 Alcohol dependence with withdrawal, uncomplicated (principal); F14.20 Cocaine dependence, uncomplicated; F17.210 Nicotine dependence, cigarettes, uncomplicated; F20.0 Paranoid schizophrenia; F19.24 Other psychoactive substance dependence with psychoactive substance-induced mood disorder; I10 Essential (primary) hypertension; J45.20 Mild intermittent asthma, uncomplicated; K04.7 Periapical abscess without sinus; K21.9 Gastro-esophageal reflux disease without esophagitis; B35.3 Tinea pedis; M12.9 Arthropathy, unspecified
CPT/HCPCS: 36415; 80053; 81003; 85027; 86593; 86803; 93005; 93010

== ENCOUNTER 2017-05-30 09:43 | Inpatient (IN) | payer OTHER ==
--- NOTE | 2017-05-30 11:21 | HP ---
Psychiatrist Admission - Data Date of interview: 05/30/17 Admission source: detox Identifying data: This is the second admission to [address] [place] [address] for thsi 56 years old single AA mother of 3 grown children, resides alone,supported by [facility]. Medical History: Significant for Arthritis,HTN,BA,GERD. Psychiatric History: Patient has long history of Schizophrenia.Paranoid type.She reports first and the onky psychiatric hospitalization at school age to [facility] due to psychotic episode.Patient reports history of noncompliance with psychiatric treatment.She obtains Risperidone 2 mg po hs from local ER,restarted while in detox on prescribed by . Physical/Sexual Abuse/Trauma History: denies Vital Signs: Vital Signs - 24 hr 05/30/17 10:26 Temperature 97.4 F L Pulse Rate 106 H Respiratory 18 Rate Blood Pressure 124/84 Allergies/Adverse Reactions: Allergies Allergy/AdvReac Type Severity Reaction Status Date / Time mushroom Allergy Severe Rash Verified 05/27/17 21:36 No Known Drug Allergies Allergy Verified 05/27/17 21:36 salmon Allergy Severe Difficulty Uncoded 05/27/17 21:36 Breathing NKDA Allergy Uncoded 05/27/17 21:36 Date of last physical exam: 05/27/17 Concur with the findings of this exam: Yes - Substance Abuse/Tx History Hx Alcohol Use: Yes (reports drinking since 10 yo,i pint of vodka dasily) Hx Substance Use: Yes (crack/cocaine sicne 28 yo,about 1 g daily) Substance Use Type: Alcohol, Cocaine Hx Substance Use Treatment: Yes (left AMA this program in February 2017.) Mental Status Exam - Mental Status Exam Alert and Oriented to: Time, Place, Person Cognitive Function: Grossly Intact Patient Appearance: Unkempt Mood: Anxious, Irritable Affect: Mood Congruent, Labile Patient Behavior: Cooperative Speech Pattern: Clear Voice Loudness: Normal Thought Process: Goal Oriented Thought Disorder: Not Present Hallucinations: Denies Suicidal Ideation: Denies Homicidal Ideation: Denies Insight/Judgement: Fair Sleep: Difficulty falling asleep Appetite: Good Muscle strength/Tone: Normal Gait/Station: Normal Psychiatric Findings - Problem List ([place] 1, 2,3) (1) Substance induced mood disorder Current Visit: Yes Status: Chronic (2) Arthritis Current Visit: Yes Status: Chronic (3) Asthma Current Visit: Yes Status: Chronic Qualifiers: (4) Cocaine dependence, uncomplicated Current Visit: Yes Status: Chronic (5) GERD (gastroesophageal reflux disease) Current Visit: Yes Status: Chronic Qualifiers: (6) Hypertension Current Visit: Yes Status: Chronic Qualifiers: (7) Nicotine dependence Current Visit: Yes Status: Chronic Qualifiers: (8) Tinea pedis Current Visit: No Status: Chronic Qualifiers: Laterality: bilateral Qualified Code(s): B35.3 - Tinea pedis (9) Schizoaffective disorder Current Visit: Yes Status: Chronic Qualifiers: Schizoaffective disorder type: other Qualified Code(s): F25.8 - Other schizoaffective disorders - Initial Treatment Plan Initial Treatment Plan: Continue Risperidone 2 mg po hs.Will monitor progress.
--- NOTE | 2017-05-30 13:06 | HP ---
[facility] Rehab Assess/Revision - Admission History Admitted to Rehab from: [facility] [place] Date of Admission to Rehab: 05/30/17 - Vital signs Vital Signs: Vital Signs Period Temp Pulse Resp BP Sys/[place] Pulse Ox Last 24 Hr 97.4 F 106 18 124/84 - Findings Detox History & Physical reviewed: Yes Concur with findings: Yes Comments/Additional Findings: for rehab as protocol
--- NOTE | 2017-05-30 13:11 | HP ---
Admission [facility] Allergies/Adverse Reactions: Allergies Allergy/AdvReac Type Severity Reaction Status Date / Time mushroom Allergy Severe Rash Verified 05/27/17 21:36 No Known Drug Allergies Allergy Verified 05/27/17 21:36 salmon Allergy Severe Difficulty Uncoded 05/27/17 21:36 Breathing NKDA Allergy Uncoded 05/27/17 21:36 - Ebola screening Have you traveled outside of the country in the last 21 days: No Have you had contact with anyone from an Ebola affected area: No Patient History - Patient Medical History Hx Anemia: Yes Hx Asthma: Yes Hx Chronic Obstructive Pulmonary Disease (COPD): Yes Hx Cancer: No Hx Cardiac Disorders: No Hx Congestive Heart Failure: No Hx Hypertension: Yes Hx Hypercholesterolemia: No Hx Pacemaker: No HX Cerebrovascular Accident: No Hx Seizures: No Hx Dementia: No Hx Diabetes: No Hx Gastrointestinal Disorders: Yes Hx Liver Disease: No Hx Genitourinary Disorders: No Hx Sexually Transmitted Disorders: No Hx Renal Disease (ESRD): No Hx Thyroid Disease: No Hx Human Immunodeficiency Virus (HIV): No Hx Hepatitis C: No Hx Depression: Yes Hx Suicide Attempt: No Hx Bipolar Disorder: No Hx Schizophrenia: Yes (Paranoid schizo.) - Patient Surgical History Past Surgical History: Yes Hx Neurologic Surgery: No Hx Cataract Extraction: No Hx Cardiac Surgery: No Hx Lung Surgery: No Hx Breast Surgery: No Hx Breast Biopsy: No Hx Abdominal Surgery: No Hx Appendectomy: No Hx Cholecystectomy: No Hx Genitourinary Surgery: No Hx Section: Yes (x2) Hx Orthopedic Surgery: Yes (right ankle fx many yrs ago) Hx Hysterectomy: No Anesthesia Reaction: No - PPD History Previous Implant?: Yes Documented Results: Positive w/o proof Results: CXR 10/2016 - Reproductive History Last Menstrual Period: 05/08/90 Patient : No - Smoking Cessation Smoking history: Current some day smoker Have you smoked in the past 12 months: Yes Aproximately how many cigarettes per day: 7 Cigars Per Day: 0 Hx Chewing Tobacco Use: No Initiated information on smoking cessation: Yes 'Breaking Loose' booklet given: 05/30/17 - Substances Abused Alcohol Route: Oral Frequency: Daily Amount used: 1 pint liquor Age of first use: 10 Date of Last Use: 05/25/17 Cocaine Route: Smoking Amount used: $100 Age of first use: 28 Date of Last Use: 05/25/17 Family Disease History - Family Disease History Family Disease History: Heart Disease: Father (), Mother (), Other: Brother (only child) Admission Physical Exam BHS - Vital Signs Vital Signs: Vital Signs - 24 hr 05/30/17 10:26 Temperature 97.4 F L Pulse Rate 106 H Respiratory 18 Rate Blood Pressure 124/84 BHS Breath Alcohol Content Breath Alcohol Content: 0 Inpatient Rehab Admission - Initial Determination Are CD services needed?: Yes Free of communicable disease: Yes Not in need of hospitalization: Yes - Rehab Admission Criteria Comorbidities: Yes Patient is meeting Inpatient Rehab admission criteria:: Yes
[2017-05-30] MEDS ORDERED: IBUPROFEN 400 MG TABLET (FP) PO PRN (13:12)
[2017-05-30] MEDS ORDERED: MAGNESIUM CITRATE 300 ML BOTTLE PO PRN (13:12)
[2017-05-30] MEDS ORDERED: MENTHOL/PHENOL 1 EACH UD MM PRN (13:12)
[2017-05-30] MEDS ORDERED: hydrOXYzine PAMOATE 50 MG CAPSULE (FP) PO PRN (13:12)
[2017-05-30] MEDS ORDERED: LOPERAMIDE HCL 2 MG CAPSULE PO PRN (13:12)
[2017-05-30] MEDS ORDERED: MAG HYDROX/AL HYDROX/SIMETH 30 ML UNIT-DOSE CUP PO PRN (13:12)
[2017-05-30] MEDS ORDERED: P-EPHED 60MG/TRIPROLIDI 2.5MG TABLET PO PRN (13:12)
[2017-05-30] MEDS ORDERED: guaiFENesin/D-METHORPHAN HB 10 ML UNIT-DOSE CUPS PO PRN (13:12)
[2017-05-30] MEDS ORDERED: ALBUTEROL SO4 18 GM HFA INHALER IH PRN (13:32)
[2017-05-30] MEDS ORDERED: PATIENT'S OWN MEDICATION (NON-FORMULARY) (Alendronate Sodium [Binosto] 70 MG) PO SCH (14:15)
[2017-05-30] MEDS: LIDOCAINE 5% TOPICAL PATCH TP SCH (14:49)
[2017-05-30] MEDS: ATORVASTATIN CA 10 MG TABLET (FP) PO SCH (21:04)
[2017-05-30] MEDS: risperiDONE 2 MG TABLET PO SCH (21:04)
[2017-05-30] MEDS: THIAMINE HCL 100 MG TABLET (FP) PO SCH (21:04)
[2017-05-30] MEDS: MONTELUKAST NA 10 MG TABLET PO SCH (21:04)
[2017-05-30] MEDS: TOLNAFTATE 1% CREAM 15 GM TUBE TP SCH (21:07)
[2017-05-30] MEDS: diphenhydrAMINE HCL 50 MG CAPSULE PO PRN (21:10)
[2017-05-30] MEDS: BUDESONIDE/FORMETEROL FUMARATE 80/4.5 mcg INHALER IH SCH ×2 (21:11→23:13)
[2017-05-30] MEDS: LIDOCAINE PATCH REMOVAL MC SCH (21:11)
[2017-05-30] MEDS: MAGNESIUM HYDROX 2400MG/30ML ORAL SUSPENSION 30 ML CUP PO PRN (23:12)
[2017-05-30] MEDS: BUDESONIDE/FORMETEROL FUMARATE 160/4.5 mcg INHALER IH SCH (23:14)
[2017-05-31] MEDS: ACETAMINOPHEN 325 MG TABLET (FP) PO PRN ×2 (06:36→11:45)
[2017-05-31] MEDS: NICOTINE POLACRILEX 2 MG GUM BUC PRN ×2 (06:50→21:48)
[2017-05-31] MEDS: LIDOCAINE 5% TOPICAL PATCH TP SCH (09:36)
[2017-05-31] MEDS: ASPIRIN COATED 81 MG TABLET.EC PO SCH (09:36)
[2017-05-31] MEDS: FLUTICASONE PROP 0.05% 16 GM NASAL SPRAY NS SCH (09:37)
[2017-05-31] MEDS: NICOTINE 21 MG/24 HOURS TOPICAL PATCH TD SCH (09:38)
[2017-05-31] MEDS: PANTOPRAZOLE 40 MG TABLET (FP) PO SCH (09:39)
[2017-05-31] MEDS: BUDESONIDE/FORMETEROL FUMARATE 160/4.5 mcg INHALER IH SCH ×2 (09:39→21:11)
[2017-05-31] MEDS: PRENATAL VITAMINS W/ FOLIC ACID TABLET (FP) PO SCH (09:39)
[2017-05-31] MEDS: TOLNAFTATE 1% CREAM 15 GM TUBE TP SCH ×2 (09:40→21:11)
[2017-05-31] MEDS ORDERED: FLUTICASONE PROP 0.05% 16 GM NASAL SPRAY NS SCH (10:00)
--- NOTE | 2017-05-31 10:33 | PN ---
S Progress Note Note: history of hypertension,on norvasc 5 mgs po daily and hydrochlorothiazide 12.5 mgs po daily Vital Signs Temperature 97 F L 05/31/17 07:00 Pulse Rate 86 05/31/17 07:00 Respiratory Rate 16 05/31/17 07:00 Blood Pressure 154/99 05/31/17 07:00 O2 Sat by Pulse Oximetry (%) medications ordered vital signs monitoring
[2017-05-31] MEDS: HYDROCHLOROTHIAZIDE 12.5 MG CAPSULE (FP) PO SCH (11:04)
[2017-05-31] MEDS: amLODIPine BESYLATE 5 MG TABLET (FP) PO SCH (11:04)
[2017-05-31] MEDS: MAGNESIUM HYDROX 2400MG/30ML ORAL SUSPENSION 30 ML CUP PO PRN (11:46)
[2017-05-31] MEDS ORDERED: PT OWN MED DRAWER 7, Y5N ONE (19:03)
[2017-05-31] MEDS: risperiDONE 2 MG TABLET PO SCH (21:10)
[2017-05-31] MEDS: THIAMINE HCL 100 MG TABLET (FP) PO SCH (21:10)
[2017-05-31] MEDS: MONTELUKAST NA 10 MG TABLET PO SCH (21:10)
[2017-05-31] MEDS: LIDOCAINE PATCH REMOVAL MC SCH (21:10)
[2017-05-31] MEDS: ATORVASTATIN CA 10 MG TABLET (FP) PO SCH (21:10)
[2017-05-31] MEDS: diphenhydrAMINE HCL 50 MG CAPSULE PO PRN (21:12)
[2017-06-01] MEDS: ACETAMINOPHEN 325 MG TABLET (FP) PO PRN ×3 (00:12→21:19)
[2017-06-01] MEDS: PRENATAL VITAMINS W/ FOLIC ACID TABLET (FP) PO SCH (09:43)
[2017-06-01] MEDS: ASPIRIN COATED 81 MG TABLET.EC PO SCH (09:43)
[2017-06-01] MEDS: FLUTICASONE PROP 0.05% 16 GM NASAL SPRAY NS SCH (09:44)
[2017-06-01] MEDS: PANTOPRAZOLE 40 MG TABLET (FP) PO SCH (09:44)
[2017-06-01] MEDS: BUDESONIDE/FORMETEROL FUMARATE 160/4.5 mcg INHALER IH SCH ×2 (09:44→21:17)
[2017-06-01] MEDS: NICOTINE 21 MG/24 HOURS TOPICAL PATCH TD SCH (09:45)
[2017-06-01] MEDS: LIDOCAINE 5% TOPICAL PATCH TP SCH (09:45)
[2017-06-01] MEDS: HYDROCHLOROTHIAZIDE 12.5 MG CAPSULE (FP) PO SCH (09:53)
[2017-06-01] MEDS: amLODIPine BESYLATE 5 MG TABLET (FP) PO SCH (09:53)
[2017-06-01] MEDS: TOLNAFTATE 1% CREAM 15 GM TUBE TP SCH ×2 (09:55→21:20)
[2017-06-01] MEDS ORDERED: MAGNESIUM CITRATE 300 ML BOTTLE PO PRN (14:55)
[2017-06-01] MEDS ORDERED: PT OWN MED DRAWER 7, Y5N ONE (19:07)
[2017-06-01] MEDS: MONTELUKAST NA 10 MG TABLET PO SCH (21:17)
[2017-06-01] MEDS: ATORVASTATIN CA 10 MG TABLET (FP) PO SCH (21:17)
[2017-06-01] MEDS: risperiDONE 2 MG TABLET PO SCH (21:17)
[2017-06-01] MEDS: THIAMINE HCL 100 MG TABLET (FP) PO SCH (21:17)
[2017-06-01] MEDS: LIDOCAINE PATCH REMOVAL MC SCH (21:17)
[2017-06-01] MEDS: diphenhydrAMINE HCL 50 MG CAPSULE PO PRN (21:18)
[2017-06-02] MEDS: ACETAMINOPHEN 325 MG TABLET (FP) PO PRN ×2 (02:25→21:25)
[2017-06-02] MEDS: NICOTINE POLACRILEX 2 MG GUM BUC PRN (06:16)
[2017-06-02] MEDS: PANTOPRAZOLE 40 MG TABLET (FP) PO SCH (09:59)
[2017-06-02] MEDS: amLODIPine BESYLATE 5 MG TABLET (FP) PO SCH (09:59)
[2017-06-02] MEDS: ASPIRIN COATED 81 MG TABLET.EC PO SCH (09:59)
[2017-06-02] MEDS: HYDROCHLOROTHIAZIDE 12.5 MG CAPSULE (FP) PO SCH (09:59)
[2017-06-02] MEDS: PRENATAL VITAMINS W/ FOLIC ACID TABLET (FP) PO SCH (09:59)
[2017-06-02] MEDS: LIDOCAINE 5% TOPICAL PATCH TP SCH (10:00)
[2017-06-02] MEDS: NICOTINE 21 MG/24 HOURS TOPICAL PATCH TD SCH (10:00)
[2017-06-02] MEDS: FLUTICASONE PROP 0.05% 16 GM NASAL SPRAY NS SCH (10:40)
[2017-06-02] MEDS: BUDESONIDE/FORMETEROL FUMARATE 160/4.5 mcg INHALER IH SCH ×2 (10:40→21:23)
[2017-06-02] MEDS: TOLNAFTATE 1% CREAM 15 GM TUBE TP SCH ×2 (10:40→21:23)
[2017-06-02] MEDS: diphenhydrAMINE HCL 50 MG CAPSULE PO PRN (21:22)
[2017-06-02] MEDS: THIAMINE HCL 100 MG TABLET (FP) PO SCH (21:22)
[2017-06-02] MEDS: MONTELUKAST NA 10 MG TABLET PO SCH (21:23)
[2017-06-02] MEDS: risperiDONE 2 MG TABLET PO SCH (21:23)
[2017-06-02] MEDS: ATORVASTATIN CA 10 MG TABLET (FP) PO SCH (21:23)
[2017-06-02] MEDS: LIDOCAINE PATCH REMOVAL MC SCH (21:24)
[2017-06-03] MEDS: ACETAMINOPHEN 325 MG TABLET (FP) PO PRN ×2 (01:44→06:34)
[2017-06-03] MEDS ORDERED: PT OWN MED DRAWER 7, Y5N ONE ×2 (08:36→21:29)
[2017-06-03] MEDS: PRENATAL VITAMINS W/ FOLIC ACID TABLET (FP) PO SCH (09:38)
[2017-06-03] MEDS: amLODIPine BESYLATE 5 MG TABLET (FP) PO SCH (09:38)
[2017-06-03] MEDS: ASPIRIN COATED 81 MG TABLET.EC PO SCH (09:38)
[2017-06-03] MEDS: BUDESONIDE/FORMETEROL FUMARATE 160/4.5 mcg INHALER IH SCH ×2 (09:39→21:27)
[2017-06-03] MEDS: PANTOPRAZOLE 40 MG TABLET (FP) PO SCH (09:39)
[2017-06-03] MEDS: HYDROCHLOROTHIAZIDE 12.5 MG CAPSULE (FP) PO SCH (09:39)
[2017-06-03] MEDS: FLUTICASONE PROP 0.05% 16 GM NASAL SPRAY NS SCH (09:40)
[2017-06-03] MEDS: LIDOCAINE 5% TOPICAL PATCH TP SCH (09:40)
[2017-06-03] MEDS: NICOTINE 21 MG/24 HOURS TOPICAL PATCH TD SCH (09:41)
[2017-06-03] MEDS: TOLNAFTATE 1% CREAM 15 GM TUBE TP SCH ×2 (09:43→21:28)
[2017-06-03 10:13] LABS: ANION GAP 8 (8-16); CALCIUM 8.8 mg/dL (8.5-10.1); CO2 27 mmol/L (21-32); GLUCOSE,RANDOM 120 mg/dL (74-106)
[2017-06-03 10:14] LABS: CREATININE 0.9 mg/dL (0.55-1.02)
[2017-06-03] MEDS: NICOTINE POLACRILEX 4 MG GUM BUC PRN (15:01)
[2017-06-03] MEDS: CYCLOBENZAPRINE HCL 10 MG TABLET (FP) PO SCH ×2 (16:50→21:25)
[2017-06-03] MEDS: ATORVASTATIN CA 10 MG TABLET (FP) PO SCH (21:25)
[2017-06-03] MEDS: LIDOCAINE PATCH REMOVAL MC SCH (21:25)
[2017-06-03] MEDS: risperiDONE 2 MG TABLET PO SCH (21:26)
[2017-06-03] MEDS: MONTELUKAST NA 10 MG TABLET PO SCH (21:26)
[2017-06-03] MEDS: diphenhydrAMINE HCL 50 MG CAPSULE PO PRN (21:28)
[2017-06-03] MEDS: THIAMINE HCL 100 MG TABLET (FP) PO SCH (21:28)
[2017-06-04] MEDS: CYCLOBENZAPRINE HCL 10 MG TABLET (FP) PO SCH ×3 (06:47→21:12)
[2017-06-04] MEDS: ACETAMINOPHEN 325 MG TABLET (FP) PO PRN ×2 (06:48→21:15)
[2017-06-04] MEDS: ASPIRIN COATED 81 MG TABLET.EC PO SCH (10:13)
[2017-06-04] MEDS: PRENATAL VITAMINS W/ FOLIC ACID TABLET (FP) PO SCH (10:13)
[2017-06-04] MEDS: PANTOPRAZOLE 40 MG TABLET (FP) PO SCH (10:13)
[2017-06-04] MEDS: HYDROCHLOROTHIAZIDE 12.5 MG CAPSULE (FP) PO SCH (10:13)
[2017-06-04] MEDS: LIDOCAINE 5% TOPICAL PATCH TP SCH (10:14)
[2017-06-04] MEDS: amLODIPine BESYLATE 5 MG TABLET (FP) PO SCH (10:14)
[2017-06-04] MEDS: NICOTINE 21 MG/24 HOURS TOPICAL PATCH TD SCH (10:14)
[2017-06-04] MEDS: FLUTICASONE PROP 0.05% 16 GM NASAL SPRAY NS SCH (10:15)
[2017-06-04] MEDS: TOLNAFTATE 1% CREAM 15 GM TUBE TP SCH ×2 (10:16→21:14)
[2017-06-04] MEDS: BUDESONIDE/FORMETEROL FUMARATE 160/4.5 mcg INHALER IH SCH ×2 (10:16→21:13)
[2017-06-04] MEDS: NICOTINE POLACRILEX 4 MG GUM BUC PRN (10:16)
[2017-06-04 12:00] LABS: HIV 1 & 2 AB NEGATIVE; HIV 1 AGp24 NEGATIVE
[2017-06-04] MEDS: ATORVASTATIN CA 10 MG TABLET (FP) PO SCH (21:13)
[2017-06-04] MEDS: MONTELUKAST NA 10 MG TABLET PO SCH (21:13)
[2017-06-04] MEDS: risperiDONE 2 MG TABLET PO SCH (21:13)
[2017-06-04] MEDS: THIAMINE HCL 100 MG TABLET (FP) PO SCH (21:13)
[2017-06-04] MEDS: LIDOCAINE PATCH REMOVAL MC SCH (21:13)
[2017-06-04] MEDS: diphenhydrAMINE HCL 50 MG CAPSULE PO PRN (21:15)
[2017-06-05] MEDS: CYCLOBENZAPRINE HCL 10 MG TABLET (FP) PO SCH ×3 (06:30→21:07)
[2017-06-05] MEDS: NICOTINE 21 MG/24 HOURS TOPICAL PATCH TD SCH (10:03)
[2017-06-05] MEDS: BUDESONIDE/FORMETEROL FUMARATE 160/4.5 mcg INHALER IH SCH ×2 (10:04→21:07)
[2017-06-05] MEDS: FLUTICASONE PROP 0.05% 16 GM NASAL SPRAY NS SCH (10:04)
[2017-06-05] MEDS: TOLNAFTATE 1% CREAM 15 GM TUBE TP SCH ×2 (10:05→21:07)
[2017-06-05] MEDS: NICOTINE POLACRILEX 4 MG GUM BUC PRN (10:07)
[2017-06-05] MEDS: PRENATAL VITAMINS W/ FOLIC ACID TABLET (FP) PO SCH (10:07)
[2017-06-05] MEDS: ASPIRIN COATED 81 MG TABLET.EC PO SCH (10:08)
[2017-06-05] MEDS: LIDOCAINE 5% TOPICAL PATCH TP SCH (10:08)
[2017-06-05] MEDS: amLODIPine BESYLATE 5 MG TABLET (FP) PO SCH (10:08)
[2017-06-05] MEDS: PANTOPRAZOLE 40 MG TABLET (FP) PO SCH (10:08)
[2017-06-05] MEDS: HYDROCHLOROTHIAZIDE 12.5 MG CAPSULE (FP) PO SCH (10:08)
[2017-06-05] MEDS: ATORVASTATIN CA 10 MG TABLET (FP) PO SCH (21:06)
[2017-06-05] MEDS: THIAMINE HCL 100 MG TABLET (FP) PO SCH (21:06)
[2017-06-05] MEDS: MONTELUKAST NA 10 MG TABLET PO SCH (21:06)
[2017-06-05] MEDS: diphenhydrAMINE HCL 50 MG CAPSULE PO PRN (21:07)
[2017-06-05] MEDS: LIDOCAINE PATCH REMOVAL MC SCH (21:07)
[2017-06-05] MEDS: risperiDONE 2 MG TABLET PO SCH (21:07)
[2017-06-05] MEDS: ACETAMINOPHEN 325 MG TABLET (FP) PO PRN (21:08)
[2017-06-06] MEDS: ACETAMINOPHEN 325 MG TABLET (FP) PO PRN ×2 (02:13→21:03)
[2017-06-06] MEDS: NICOTINE POLACRILEX 4 MG GUM BUC PRN ×2 (06:29→21:04)
[2017-06-06] MEDS: CYCLOBENZAPRINE HCL 10 MG TABLET (FP) PO SCH ×3 (06:29→21:00)
[2017-06-06] MEDS ORDERED: PT OWN MED DRAWER 7, Y5N ONE (08:20)
[2017-06-06] MEDS: LIDOCAINE 5% TOPICAL PATCH TP SCH (10:10)
[2017-06-06] MEDS: FLUTICASONE PROP 0.05% 16 GM NASAL SPRAY NS SCH (10:10)
[2017-06-06] MEDS: PANTOPRAZOLE 40 MG TABLET (FP) PO SCH (10:11)
[2017-06-06] MEDS: PRENATAL VITAMINS W/ FOLIC ACID TABLET (FP) PO SCH (10:11)
[2017-06-06] MEDS: amLODIPine BESYLATE 5 MG TABLET (FP) PO SCH (10:11)
[2017-06-06] MEDS: TOLNAFTATE 1% CREAM 15 GM TUBE TP SCH ×2 (10:11→21:02)
[2017-06-06] MEDS: HYDROCHLOROTHIAZIDE 12.5 MG CAPSULE (FP) PO SCH (10:11)
[2017-06-06] MEDS: BUDESONIDE/FORMETEROL FUMARATE 160/4.5 mcg INHALER IH SCH ×2 (10:11→21:00)
[2017-06-06] MEDS: ASPIRIN COATED 81 MG TABLET.EC PO SCH (10:11)
[2017-06-06] MEDS: NICOTINE 21 MG/24 HOURS TOPICAL PATCH TD SCH (10:12)
[2017-06-06] MEDS: ATORVASTATIN CA 10 MG TABLET (FP) PO SCH (21:00)
[2017-06-06] MEDS: LIDOCAINE PATCH REMOVAL MC SCH (21:01)
[2017-06-06] MEDS: risperiDONE 2 MG TABLET PO SCH (21:01)
[2017-06-06] MEDS: THIAMINE HCL 100 MG TABLET (FP) PO SCH (21:01)
[2017-06-06] MEDS: diphenhydrAMINE HCL 50 MG CAPSULE PO PRN (21:02)
[2017-06-06] MEDS: MONTELUKAST NA 10 MG TABLET PO SCH (21:10)
[2017-06-07] MEDS: ACETAMINOPHEN 325 MG TABLET (FP) PO PRN ×2 (06:34→21:08)
[2017-06-07] MEDS: amLODIPine BESYLATE 5 MG TABLET (FP) PO SCH (06:53)
[2017-06-07] MEDS: CYCLOBENZAPRINE HCL 10 MG TABLET (FP) PO SCH ×3 (06:56→21:06)
[2017-06-07] MEDS ORDERED: PT OWN MED DRAWER 7, Y5N ONE ×2 (08:36→18:59)
[2017-06-07] MEDS: ASPIRIN COATED 81 MG TABLET.EC PO SCH (09:49)
[2017-06-07] MEDS: PANTOPRAZOLE 40 MG TABLET (FP) PO SCH (09:49)
[2017-06-07] MEDS: PRENATAL VITAMINS W/ FOLIC ACID TABLET (FP) PO SCH (09:49)
[2017-06-07] MEDS: HYDROCHLOROTHIAZIDE 12.5 MG CAPSULE (FP) PO SCH (09:49)
[2017-06-07] MEDS: FLUTICASONE PROP 0.05% 16 GM NASAL SPRAY NS SCH (09:50)
[2017-06-07] MEDS: TOLNAFTATE 1% CREAM 15 GM TUBE TP SCH ×2 (09:50→21:08)
[2017-06-07] MEDS: BUDESONIDE/FORMETEROL FUMARATE 160/4.5 mcg INHALER IH SCH ×2 (09:50→21:09)
[2017-06-07] MEDS: NICOTINE 21 MG/24 HOURS TOPICAL PATCH TD SCH (09:50)
[2017-06-07] MEDS: LIDOCAINE 5% TOPICAL PATCH TP SCH (09:51)
[2017-06-07] MEDS: MAGNESIUM HYDROX 2400MG/30ML ORAL SUSPENSION 30 ML CUP PO PRN (13:24)
[2017-06-07] MEDS: diphenhydrAMINE HCL 50 MG CAPSULE PO PRN (21:06)
[2017-06-07] MEDS: LIDOCAINE PATCH REMOVAL MC SCH (21:06)
[2017-06-07] MEDS: THIAMINE HCL 100 MG TABLET (FP) PO SCH (21:06)
[2017-06-07] MEDS: MONTELUKAST NA 10 MG TABLET PO SCH (21:06)
[2017-06-07] MEDS: risperiDONE 2 MG TABLET PO SCH (21:06)
[2017-06-07] MEDS: ATORVASTATIN CA 10 MG TABLET (FP) PO SCH (21:06)
[2017-06-07] MEDS: NICOTINE POLACRILEX 4 MG GUM BUC PRN (21:09)
[2017-06-08] MEDS: amLODIPine BESYLATE 5 MG TABLET (FP) PO SCH (06:33)
[2017-06-08] MEDS: CYCLOBENZAPRINE HCL 10 MG TABLET (FP) PO SCH ×3 (06:33→21:07)
[2017-06-08] MEDS: NICOTINE POLACRILEX 4 MG GUM BUC PRN (06:35)
[2017-06-08] MEDS ORDERED: PT OWN MED DRAWER 7, Y5N ONE ×3 (08:06→11:06)
[2017-06-08] MEDS: ASPIRIN COATED 81 MG TABLET.EC PO SCH (09:48)
[2017-06-08] MEDS: HYDROCHLOROTHIAZIDE 12.5 MG CAPSULE (FP) PO SCH (09:48)
[2017-06-08] MEDS: PANTOPRAZOLE 40 MG TABLET (FP) PO SCH (09:48)
[2017-06-08] MEDS: NICOTINE 21 MG/24 HOURS TOPICAL PATCH TD SCH (09:48)
[2017-06-08] MEDS: PRENATAL VITAMINS W/ FOLIC ACID TABLET (FP) PO SCH (09:48)
[2017-06-08] MEDS: LIDOCAINE 5% TOPICAL PATCH TP SCH (09:48)
[2017-06-08] MEDS: BUDESONIDE/FORMETEROL FUMARATE 160/4.5 mcg INHALER IH SCH ×2 (09:49→21:07)
[2017-06-08] MEDS: FLUTICASONE PROP 0.05% 16 GM NASAL SPRAY NS SCH (09:49)
[2017-06-08] MEDS: TOLNAFTATE 1% CREAM 15 GM TUBE TP SCH ×2 (09:50→21:08)
[2017-06-08] MEDS ORDERED: MAGNESIUM CITRATE 300 ML BOTTLE PO PRN (16:33)
[2017-06-08] MEDS: THIAMINE HCL 100 MG TABLET (FP) PO SCH (21:07)
[2017-06-08] MEDS: ATORVASTATIN CA 10 MG TABLET (FP) PO SCH (21:07)
[2017-06-08] MEDS: risperiDONE 2 MG TABLET PO SCH (21:07)
[2017-06-08] MEDS: MONTELUKAST NA 10 MG TABLET PO SCH (21:07)
[2017-06-08] MEDS: ACETAMINOPHEN 325 MG TABLET (FP) PO PRN (21:08)
[2017-06-08] MEDS: LIDOCAINE PATCH REMOVAL MC SCH (21:08)
[2017-06-09] MEDS: amLODIPine BESYLATE 5 MG TABLET (FP) PO SCH (06:32)
[2017-06-09] MEDS: NICOTINE POLACRILEX 4 MG GUM BUC PRN (06:32)
[2017-06-09] MEDS: CYCLOBENZAPRINE HCL 10 MG TABLET (FP) PO SCH ×3 (06:32→21:19)
[2017-06-09] MEDS ORDERED: PT OWN MED DRAWER 7, Y5N ONE ×3 (08:21→21:12)
[2017-06-09] MEDS: PANTOPRAZOLE 40 MG TABLET (FP) PO SCH (10:10)
[2017-06-09] MEDS: BUDESONIDE/FORMETEROL FUMARATE 160/4.5 mcg INHALER IH SCH ×2 (10:10→22:13)
[2017-06-09] MEDS: ASPIRIN COATED 81 MG TABLET.EC PO SCH (10:10)
[2017-06-09] MEDS: HYDROCHLOROTHIAZIDE 12.5 MG CAPSULE (FP) PO SCH (10:10)
[2017-06-09] MEDS: PRENATAL VITAMINS W/ FOLIC ACID TABLET (FP) PO SCH (10:10)
[2017-06-09] MEDS: LIDOCAINE 5% TOPICAL PATCH TP SCH (10:10)
[2017-06-09] MEDS: NICOTINE 21 MG/24 HOURS TOPICAL PATCH TD SCH (10:10)
[2017-06-09] MEDS: FLUTICASONE PROP 0.05% 16 GM NASAL SPRAY NS SCH (10:11)
[2017-06-09] MEDS: TOLNAFTATE 1% CREAM 15 GM TUBE TP SCH ×2 (10:11→22:13)
[2017-06-09] MEDS ORDERED: AMMONIUM LACTATE 12% LOTION 225 GM BOTTLE TP PRN (13:38)
[2017-06-09] MEDS: risperiDONE 2 MG TABLET PO SCH (21:19)
[2017-06-09] MEDS: ATORVASTATIN CA 10 MG TABLET (FP) PO SCH (21:19)
[2017-06-09] MEDS: THIAMINE HCL 100 MG TABLET (FP) PO SCH (21:19)
[2017-06-09] MEDS: MONTELUKAST NA 10 MG TABLET PO SCH (21:20)
[2017-06-09] MEDS: LIDOCAINE PATCH REMOVAL MC SCH (22:13)
[2017-06-09] MEDS: diphenhydrAMINE HCL 50 MG CAPSULE PO PRN (22:18)
[2017-06-09] MEDS: ACETAMINOPHEN 325 MG TABLET (FP) PO PRN (22:36)
[2017-06-10] MEDS: CYCLOBENZAPRINE HCL 10 MG TABLET (FP) PO SCH ×3 (06:16→21:05)
[2017-06-10] MEDS: NICOTINE POLACRILEX 4 MG GUM BUC PRN (06:16)
[2017-06-10] MEDS: amLODIPine BESYLATE 5 MG TABLET (FP) PO SCH (06:16)
[2017-06-10] MEDS ORDERED: PT OWN MED DRAWER 7, Y5N ONE (08:27)
[2017-06-10] MEDS: FLUTICASONE PROP 0.05% 16 GM NASAL SPRAY NS SCH (10:02)
[2017-06-10] MEDS: LIDOCAINE 5% TOPICAL PATCH TP SCH (10:02)
[2017-06-10] MEDS: ASPIRIN COATED 81 MG TABLET.EC PO SCH (10:02)
[2017-06-10] MEDS: PANTOPRAZOLE 40 MG TABLET (FP) PO SCH (10:04)
[2017-06-10] MEDS: PRENATAL VITAMINS W/ FOLIC ACID TABLET (FP) PO SCH (10:06)
[2017-06-10] MEDS: NICOTINE 21 MG/24 HOURS TOPICAL PATCH TD SCH (10:06)
[2017-06-10] MEDS: HYDROCHLOROTHIAZIDE 12.5 MG CAPSULE (FP) PO SCH (10:07)
[2017-06-10] MEDS: BUDESONIDE/FORMETEROL FUMARATE 160/4.5 mcg INHALER IH SCH ×2 (10:44→21:08)
[2017-06-10] MEDS: TOLNAFTATE 1% CREAM 15 GM TUBE TP SCH ×2 (10:44→21:08)
[2017-06-10] MEDS ORDERED: diphenhydrAMINE HCL 25 MG CAPSULE (FP) PO ONE (19:06)
[2017-06-10] MEDS: risperiDONE 2 MG TABLET PO SCH (21:03)
[2017-06-10] MEDS: MONTELUKAST NA 10 MG TABLET PO SCH (21:04)
[2017-06-10] MEDS: diphenhydrAMINE HCL 50 MG CAPSULE PO PRN (21:04)
[2017-06-10] MEDS: THIAMINE HCL 100 MG TABLET (FP) PO SCH (21:05)
[2017-06-10] MEDS: ATORVASTATIN CA 10 MG TABLET (FP) PO SCH (21:05)
[2017-06-10] MEDS: ACETAMINOPHEN 325 MG TABLET (FP) PO PRN (21:06)
[2017-06-10] MEDS: LIDOCAINE PATCH REMOVAL MC SCH (21:08)
[2017-06-11] MEDS: CYCLOBENZAPRINE HCL 10 MG TABLET (FP) PO SCH ×3 (06:22→21:09)
[2017-06-11] MEDS: amLODIPine BESYLATE 5 MG TABLET (FP) PO SCH (06:22)
[2017-06-11] MEDS: NICOTINE POLACRILEX 4 MG GUM BUC PRN (06:23)
[2017-06-11] MEDS: ACETAMINOPHEN 325 MG TABLET (FP) PO PRN ×2 (06:24→13:46)
[2017-06-11] MEDS ORDERED: PT OWN MED DRAWER 7, Y5N ONE ×2 (08:45→22:06)
[2017-06-11] MEDS: HYDROCHLOROTHIAZIDE 12.5 MG CAPSULE (FP) PO SCH (10:13)
[2017-06-11] MEDS: ASPIRIN COATED 81 MG TABLET.EC PO SCH (10:13)
[2017-06-11] MEDS: PANTOPRAZOLE 40 MG TABLET (FP) PO SCH (10:13)
[2017-06-11] MEDS: PRENATAL VITAMINS W/ FOLIC ACID TABLET (FP) PO SCH (10:13)
[2017-06-11] MEDS: LIDOCAINE 5% TOPICAL PATCH TP SCH (10:14)
[2017-06-11] MEDS: BUDESONIDE/FORMETEROL FUMARATE 160/4.5 mcg INHALER IH SCH ×2 (10:14→21:10)
[2017-06-11] MEDS: NICOTINE 21 MG/24 HOURS TOPICAL PATCH TD SCH (10:14)
[2017-06-11] MEDS: TOLNAFTATE 1% CREAM 15 GM TUBE TP SCH ×2 (10:15→21:11)
[2017-06-11] MEDS: FLUTICASONE PROP 0.05% 16 GM NASAL SPRAY NS SCH (10:15)
[2017-06-11] MEDS: MAGNESIUM HYDROX 2400MG/30ML ORAL SUSPENSION 30 ML CUP PO PRN (13:46)
[2017-06-11] MEDS ORDERED: COLLOIDAL OATMEAL 1 BAR EACH TP PRN (15:55)
[2017-06-11] MEDS: AMOXICILLIN 500 MG CAPSULE (FP) PO SCH ×2 (17:43→21:08)
[2017-06-11] MEDS: ATORVASTATIN CA 10 MG TABLET (FP) PO SCH (21:09)
[2017-06-11] MEDS: MONTELUKAST NA 10 MG TABLET PO SCH (21:09)
[2017-06-11] MEDS: LIDOCAINE PATCH REMOVAL MC SCH (21:09)
[2017-06-11] MEDS: risperiDONE 2 MG TABLET PO SCH (21:09)
[2017-06-11] MEDS: THIAMINE HCL 100 MG TABLET (FP) PO SCH (21:11)
[2017-06-11] MEDS: diphenhydrAMINE HCL 50 MG CAPSULE PO PRN (21:11)
[2017-06-12] MEDS: AMOXICILLIN 500 MG CAPSULE (FP) PO SCH ×2 (06:19→13:01)
[2017-06-12] MEDS: ACETAMINOPHEN 325 MG TABLET (FP) PO PRN (06:20)
[2017-06-12] MEDS: amLODIPine BESYLATE 5 MG TABLET (FP) PO SCH (06:20)
[2017-06-12] MEDS: CYCLOBENZAPRINE HCL 10 MG TABLET (FP) PO SCH ×2 (06:20→13:02)
[2017-06-12] MEDS: NICOTINE POLACRILEX 4 MG GUM BUC PRN (06:20)
[2017-06-12 07:11] VITALS: TEMP 97.8
[2017-06-12] MEDS: ASPIRIN COATED 81 MG TABLET.EC PO SCH (09:46)
[2017-06-12] MEDS: HYDROCHLOROTHIAZIDE 12.5 MG CAPSULE (FP) PO SCH (09:46)
[2017-06-12] MEDS: PRENATAL VITAMINS W/ FOLIC ACID TABLET (FP) PO SCH (09:46)
[2017-06-12] MEDS: PANTOPRAZOLE 40 MG TABLET (FP) PO SCH (09:47)
[2017-06-12] MEDS: BUDESONIDE/FORMETEROL FUMARATE 160/4.5 mcg INHALER IH SCH (09:48)
[2017-06-12] MEDS: TOLNAFTATE 1% CREAM 15 GM TUBE TP SCH (09:48)
[2017-06-12] MEDS: FLUTICASONE PROP 0.05% 16 GM NASAL SPRAY NS SCH (09:49)
[2017-06-12] MEDS: LIDOCAINE 5% TOPICAL PATCH TP SCH (09:49)
[2017-06-12] MEDS: NICOTINE 21 MG/24 HOURS TOPICAL PATCH TD SCH (09:49)
[2017-06-12] MEDS ORDERED: AMMONIUM LACTATE 12% LOTION 225 GM BOTTLE TP SCH (10:00)
[2017-06-12 10:05] VITALS: BP 120/83; PULSE 116
--- NOTE | 2017-06-16 09:28 | PN ---
[facility] Progress Note Note: Patient completed this program 06/12/17 (early discharge).She has met her treatment goals partially and will continue to address her issues on outpatient basis .Patient reports finding current medications help to cope with depression, anxiety,mood swings.Scripts provided.Patient was stable on discharge date .
== END 2017-06-12 15:12 | disposition home or self-care (01) | DRG 772 ==
LOC: YASAS 09:43 → Y3E 09:44
PROVIDERS: ADMIT Psychiatry & Neurology Psychiatry; ATTEND Psychiatry & Neurology Psychiatry
PROC: HZ42ZZZ Group Counseling for Substance Abuse Treatment, Cognitive-Behavioral (ICD-10-PCS; principal; 2017-05-30)
DX: F10.20 Alcohol dependence, uncomplicated (principal); F14.20 Cocaine dependence, uncomplicated; F17.210 Nicotine dependence, cigarettes, uncomplicated; F25.8 Other schizoaffective disorders; D64.9 Anemia, unspecified; J44.9 Chronic obstructive pulmonary disease, unspecified; I10 Essential (primary) hypertension; M19.90 Unspecified osteoarthritis, unspecified site; K21.9 Gastro-esophageal reflux disease without esophagitis; B35.3 Tinea pedis; Z91.018 Allergy to other foods; Z91.013 Allergy to seafood
CPT/HCPCS: 36415; 80048; 87389

== ENCOUNTER 2017-08-03 14:34 | Inpatient (IN) | payer OTHER ==
[2017-08-03 14:45] VITALS: BMI 29.7
--- NOTE | 2017-08-03 14:46 | HP ---
CIWA Score - CIWA Score Nausea/Vomitin Muscle Tremors: 3 Anxiety: 3 Agitation: 3 Paroxysmal Sweats: 2 Orientation: 0-Oriented Tacttile Disturbances: 2-Mild Itch/Numbness/Burn Auditory Disturbances: 2-Mild Harshness/Frighten Visual Disturbances: 2-Mild Sensitivity Headache: 2-Mild CIWA-Ar Total Score: 22 Admission ROS BHS - HPI Chief Complaint: i need help to stop drinking alcohol and cocaine Allergies/Adverse Reactions: Allergies Allergy/AdvReac Type Severity Reaction Status Date / Time mushroom Allergy Severe Rash Verified 08/03/17 14:49 No Known Drug Allergies Allergy Verified 08/03/17 14:49 salmon Allergy Severe Difficulty Uncoded 08/03/17 14:49 Breathing History of Present Illness: this 57 years old male with alcohol and cocaine dependence,seeking detox,last treatment at [facility] 05/28/17 to 05/30/17 ,05/30/17 ti 06/12/17 rehab syncope multiple medical problem asthma,gerd,htn,arthritis both knees weight loss nicotine dependence anxiety,depression,insomnia multiple admissions in the past longest period of sobriety 3 and a half year Exam Limitations: No Limitations - Ebola screening Have you traveled outside of the country in the last 21 days: No (N) Have you had contact with anyone from an Ebola affected area: No Have you been sick,other than usual withdrawal symptoms: No Do you have a fever: No - Review of Systems Constitutional: Chills, Loss of Appetite, Malaise, Night Sweats, Changes in sleep, Weakness, Unintentional Wgt. Loss, Unexplained wgt Loss EENT: reports: Tearing Respiratory: reports: No Symptoms reported, Other (asthma) Cardiac: reports: Palpitations GI: reports: Diarrhea, Nausea, Vomiting, Abdominal cramping : reports: No Symptoms Reported Musculoskeletal: reports: No Symptoms Reported, Back Pain, Joint Pain, Muscle Pain Integumentary: reports: Dryness Neuro: reports: Headache, Tremors Endocrine: reports: No Symptoms Reported Hematology: reports: No Symptoms Reported Psychiatric: reports: No Sypmtoms Reported, Judgement Intact, Mood/Affect Appropiate, Agitated, Anxious Patient History - Patient Medical History Hx Anemia: Yes Hx Asthma: Yes (on albuterol and symbicort inh) Hx Chronic Obstructive Pulmonary Disease (COPD): Yes Hx Cancer: No Hx Cardiac Disorders: No Hx Congestive Heart Failure: No Hx Hypertension: Yes (on no med) Hx Hypercholesterolemia: No Hx Pacemaker: No HX Cerebrovascular Accident: No Hx Seizures: No Hx Dementia: No Hx Diabetes: No Hx Gastrointestinal Disorders: Yes (on nexium) Hx Liver Disease: No Hx Genitourinary Disorders: No Hx Sexually Transmitted Disorders: No Hx Renal Disease (ESRD): No Hx Thyroid Disease: No Hx Human Immunodeficiency Virus (HIV): No (last 01/22) Hx Hepatitis C: No Hx Depression: Yes Hx Suicide Attempt: No Hx Bipolar Disorder: No Hx Schizophrenia: Yes (Paranoid schizo.) Other Medical History: no suicidal,no homicidal - Patient Surgical History Past Surgical History: Yes Hx Neurologic Surgery: No Hx Cataract Extraction: No Hx Cardiac Surgery: No Hx Lung Surgery: No Hx Breast Surgery: No Hx Breast Biopsy: No Hx Abdominal Surgery: No Hx Appendectomy: No Hx Cholecystectomy: No Hx Genitourinary Surgery: No Hx Section: Yes (x2) Hx Orthopedic Surgery: Yes (right ankle fx many yrs ago) Hx Hysterectomy: No Anesthesia Reaction: No - PPD History Previous Implant?: Yes Documented Results: Positive w/proof Results: CXR 10/2016 PPD to be Administered?: No - Reproductive History Last Menstrual Period: 05/08/90 Patient : No - Smoking Cessation Smoking history: Current some day smoker Have you smoked in the past 12 months: Yes Aproximately how many cigarettes per day: 20 Cigars Per Day: 0 Hx Chewing Tobacco Use: No Initiated information on smoking cessation: Yes 'Breaking Loose' booklet given: 08/03/17 - Substance & Tx. History Hx Alcohol Use: Yes Hx Substance Use: Yes Substance Use Type: Alcohol, Cocaine Hx Substance Use Treatment: Yes ([facility] 05/28/17 to 05/30/17 detox rehab 05/30/17 to 06/12/17) - Substances Abused Alcohol Route: Oral Frequency: Daily Amount used: 1 pint of aracelis/6 packs of 24 ozs of beer Age of first use: 10 Date of Last Use: 08/03/17 Cocaine Route: Smoking Frequency: Daily (100$) Amount used: 100$ Age of first use: 28 Date of Last Use: 08/03/17 Family Disease History - Family Disease History Family Disease History: Heart Disease: Father (), Mother (), Other: Brother (only child) Admission Physical Exam [facility] - Vital Signs Vital Signs: Vital Signs - 24 hr 08/03/17 14:35 Temperature 98 F Pulse Rate 107 H Respiratory 18 Rate Blood Pressure 126/79 - Physical General Appearance: Yes: Moderate Distress, Tremorous, Irritable, Sweating, Anxious HEENTM: Yes: Normal ENT Inspection, COLIN, Pharynx Normal Respiratory: Yes: Lungs Clear, Normal Breath Sounds, No Respiratory Distress Neck: Yes: Supple Breast: Yes: Breast Exam Deferred Cardiology: Yes: Tachycardia Abdominal: Yes: Within Normal Limits, Normal Bowel Sounds, Non Tender, Soft Genitourinary: Yes: Within Normal Limits Back: Yes: Normal Inspection, Decreased Range of Motion, Muscle Spasm Extremities: Yes: Within Normal Limits, Normal Capillary Refill, Normal Inspection, Normal Range of Motion, Other (pain in both knees) Neurological: Yes: programming director II-XII NML intact, Fully Oriented, Alert, Motor Strength 5/5 Integumentary: Yes: Dry Lymphatic: Yes: Within Normal Limits - Diagnostic (1) Alcohol dependence with uncomplicated withdrawal Current Visit: Yes Status: Acute (2) Arthritis Current Visit: No Status: Chronic (3) Asthma Current Visit: No Status: Chronic Qualifiers: (4) Cocaine dependence, uncomplicated Current Visit: No Status: Chronic (5) GERD (gastroesophageal reflux disease) Current Visit: No Status: Chronic Qualifiers: (6) Hypertension Current Visit: No Status: Chronic Qualifiers: (7) Nicotine dependence Current Visit: No Status: Chronic Qualifiers: (8) Schizoaffective disorder Current Visit: No Status: Chronic Qualifiers: Schizoaffective disorder type: other Qualified Code(s): F25.8 - Other schizoaffective disorders (9) Tinea pedis Current Visit: No Status: Chronic Qualifiers: Laterality: bilateral Qualified Code(s): B35.3 - Tinea pedis (10) Positive PPD Current Visit: Yes Status: Acute Cleared for Admission [facility] - Detox or Rehab [facility] Level of Care: Medically Managed Detox Regimen/Protocol: Librium [facility] Breath Alcohol Content Breath Alcohol Content: 0.014 Urine Pregancy Test - Result Urine Test Results: Negative- NO Line Present Urine Drug Screen - Results Drug Screen Negative: No Urine Drug Screen Results: KULWINDER-Cocaine
[2017-08-03] MEDS ORDERED: guaiFENesin/D-METHORPHAN HB 10 ML UNIT-DOSE CUPS PO PRN (15:13)
[2017-08-03] MEDS ORDERED: MENTHOL/PHENOL 1 EACH UD MM PRN (15:13)
[2017-08-03] MEDS ORDERED: NICOTINE POLACRILEX 4 MG GUM BC PRN (15:13)
[2017-08-03] MEDS ORDERED: chlordiazePOXIDE HCL 25 MG CAPSULE PO ONE (15:13)
[2017-08-03] MEDS ORDERED: chlordiazePOXIDE HCL 25 MG CAPSULE PO PRN (15:13)
[2017-08-03] MEDS ORDERED: P-EPHED 60MG/TRIPROLIDI 2.5MG TABLET PO PRN (15:13)
[2017-08-03] MEDS ORDERED: MAG HYDROX/AL HYDROX/SIMETH 30 ML UNIT-DOSE CUP PO PRN (15:13)
[2017-08-03] MEDS ORDERED: hydrOXYzine PAMOATE 50 MG CAPSULE (FP) PO PRN (15:13)
[2017-08-03] MEDS ORDERED: MAGNESIUM CITRATE 300 ML BOTTLE PO PRN (15:13)
[2017-08-03] MEDS ORDERED: LOPERAMIDE HCL 2 MG CAPSULE PO PRN (15:13)
[2017-08-03] MEDS ORDERED: ALBUTEROL SO4 18 GM HFA INHALER IH PRN (15:16)
[2017-08-03] MEDS ORDERED: COLLOIDAL OATMEAL 1 BAR EACH TP PRN (15:19)
[2017-08-03] MEDS: chlordiazePOXIDE HCL 25 MG CAPSULE PO SCH ×2 (17:11→22:12)
[2017-08-03] MEDS: NICOTINE 21 MG/24 HOURS TOPICAL PATCH TD SCH (17:30)
[2017-08-03 18:26] LABS: URINE APPEARANCE SLCLOUDY; URINE BILIRUBIN NEGATIVE (NEGATIVE); URINE BLOOD NEGATIVE (NEGATIVE); URINE COLOR YELLOW; URINE GLUCOSE (UA) NEGATIVE (NEGATIVE); URINE KETONE NEGATIVE (NEGATIVE); URINE NITRITE NEGATIVE (NEGATIVE); URINE PROTEIN NEGATIVE (NEGATIVE); URINE UROBILINOGEN NEGATIVE mg/dL (0.2-1.0)
[2017-08-03] MEDS: MAGNESIUM HYDROX 2400MG/30ML ORAL SUSPENSION 30 ML CUP PO PRN (18:53)
[2017-08-03] MEDS: THIAMINE HCL 100 MG TABLET (FP) PO SCH (22:12)
[2017-08-03] MEDS: MONTELUKAST NA 10 MG TABLET PO SCH (22:12)
[2017-08-03] MEDS: ATORVASTATIN CA 10 MG TABLET (FP) PO SCH (22:12)
[2017-08-03 23:09] LABS: URINE LEUK ESTERASE TRACE (NEGATIVE)
[2017-08-03] MEDS: TOLNAFTATE 1% CREAM 15 GM TUBE TP SCH (23:13)
[2017-08-03] MEDS: BUDESONIDE/FORMETEROL FUMARATE 160/4.5 mcg INHALER IH SCH (23:13)
[2017-08-04] MEDS: chlordiazePOXIDE HCL 25 MG CAPSULE PO SCH ×4 (05:30→23:32)
[2017-08-04] MEDS: IBUPROFEN 400 MG TABLET (FP) PO PRN ×2 (06:51→19:09)
--- NOTE | 2017-08-04 07:49 | CONSULT ---
[facility] Psychiatric Consult - Data Date of interview: 08/04/17 Admission source: [facility] Identifying data: This is 57 yearsv old female with history of Schizophrenia, intoxicayed with: Cocaine, Alcohol, and Nicotine Substance Abuse History: Smoking history: Current some day smoker. Have you smoked in the past 12 months: Yes. Aproximately how many cigarettes per day: 20. Cigars Per Day: 0. Hx Chewing Tobacco Use: No. Initiated information on smoking cessation: Yes. 'Breaking Loose' booklet given: 08/03/17. - Substance & Tx. History. Hx Alcohol Use: Yes. Hx Substance Use: Yes. Substance Use Type : Alcohol, Cocaine. Hx Substance Use Treatment: Yes ([facility] 05/28/17 to 05/30/17 detox rehab 05/30/17 to 06/12/17). - Substances Abused. Alcohol. Route: Oral. Frequency: Daily. Amount used: 1 pint of aracelis/6 packs of 24 ozs of beer. Age of first use: 10. Date of Last Use: 08/03/17. Cocaine. Route: Smoking. Frequency: Daily (100$). Amount used: 100$. Age of first use: 28. Date of Last Use: 08/03/17 Medical History: Denies significant medical issues, as per computer there is a history of Anemia and GERD Psychiatric History: Patient reports tyo carry Schizophrenia with most recent psychiatric admission onn1 month ago at [facility]. Currently taking: Risoerdal 2mg po qhs Physical/Sexual Abuse/Trauma History: Denies Additional Comment: Risperdal 2mg po qhs Mental Status Exam - Mental Status Exam Alert and Oriented to: Person Cognitive Function: Fair Patient Appearance: Unkempt Mood: Sad Affect: Flat Patient Behavior: Sedated Speech Pattern: Delayed Voice Loudness: Mildly Soft/Quiet Thought Process: Circumstantial Thought Disorder: Being Controlled Hallucinations: Denies Suicidal Ideation: Denies Homicidal Ideation: Denies Insight/Judgement: Impaired Sleep: Difficulty falling asleep Appetite: Weight gain Muscle strength/Tone: Mild Hypotonicity Gait/Station: Shuffling Additional Comments: Risperdal 2mg po qhs Psychiatric Findings - Problem List ([place] 1, 2,3) (1) Alcohol dependence with uncomplicated withdrawal Current Visit: Yes Status: Chronic (2) Cocaine dependence, uncomplicated Current Visit: No Status: Chronic (3) Nicotine dependence Current Visit: No Status: Chronic Qualifiers: Nicotine product type: cigarettes Substance use status: uncomplicated Qualified Code(s): F17.210 - Nicotine dependence, cigarettes, uncomplicated (4) Schizoaffective disorder Current Visit: No Status: Chronic Qualifiers: Schizoaffective disorder type: other Qualified Code(s): F25.8 - Other schizoaffective disorders - Initial Treatment Plan Initial Treatment Plan: Risperdal 2mg po qhs
[2017-08-04 10:00] LABS: MCH 33.1 pg (25.7-33.7); MCHC 33.1 g/dl (32.0-36.0); MEAN CELL VOLUME 100.2 fl (80-96); MEAN PLT VOLUME 7.7 fl (7.5-11.1); PLATELET COUNT 269 K/MM3 (134-434); RDW 14.9 % (11.6-15.6); WHITE BLOOD COUNT 4.2 K/mm3 (4.0-10.0)
[2017-08-04] MEDS: TOLNAFTATE 1% CREAM 15 GM TUBE TP SCH ×2 (10:08→23:33)
[2017-08-04] MEDS: HYDROCHLOROTHIAZIDE 12.5 MG CAPSULE (FP) PO SCH (10:08)
[2017-08-04] MEDS: PRENATAL VITAMINS W/ FOLIC ACID TABLET (FP) PO SCH (10:08)
[2017-08-04] MEDS: amLODIPine BESYLATE 5 MG TABLET (FP) PO SCH (10:08)
[2017-08-04] MEDS: ASPIRIN 81 MG CHEWABLE TABLETS PO SCH (10:08)
[2017-08-04] MEDS: PANTOPRAZOLE 40 MG TABLET (FP) PO SCH (10:08)
[2017-08-04] MEDS: NICOTINE 21 MG/24 HOURS TOPICAL PATCH TD SCH (10:11)
[2017-08-04] MEDS: LIDOCAINE 5% TOPICAL PATCH TP SCH (10:12)
[2017-08-04 10:21] LABS: ALBUMIN 3.2 g/dl (3.4-5.0); ALK PHOS 86 U/L (45-117); ANION GAP 8 (8-16); BILIRUBIN,TOTAL 0.5 mg/dL (0.2-1.0); CALCIUM 8.1 mg/dL (8.5-10.1); CO2 26 mmol/L (21-32); CREATININE 1.1 mg/dL (0.55-1.02); GLUCOSE,RANDOM 131 mg/dL (74-106); SGOT/AST 15 U/L (15-37); SGPT/ALT 23 U/L (12-78); TOT PROT 6.6 g/dl (6.4-8.2)
[2017-08-04] MEDS: FLUTICASONE PROP 0.05% 16 GM NASAL SPRAY NS SCH (10:54)
[2017-08-04] MEDS: BUDESONIDE/FORMETEROL FUMARATE 160/4.5 mcg INHALER IH SCH ×2 (10:54→22:06)
[2017-08-04 11:07] LABS: HIV 1 & 2 AB NEGATIVE; HIV 1 AGp24 NEGATIVE
[2017-08-04] MEDS ORDERED: LIDOCAINE VISCOUS 2% ORAL/TOP 20 ML UNIT-DOSE CUP MM PRN (11:11)
--- NOTE | 2017-08-04 11:19 | PN ---
S CIWA - CIWA Score Nausea/Vomitin-No Nausea/No Vomiting Muscle Tremors: 4-Moderate,w/Arms Extend Anxiety: 4-Mod. Anxious/Guarded Agitation: 4-Moderately Restless Paroxysmal Sweats: 3 Orientation: 0-Oriented Tacttile Disturbances: 0-None Auditory Disturbances: 0-None Visual Disturbances: 0-None Headache: 0-None Present CIWA-Ar Total Score: 15 BHS Progress Note (SOAP) Subjective: sweats toothache agitation anxiety dry skin body aches Objective: 08/04/17 11:17 Vital Signs Temperature 97.2 F L 08/04/17 09:37 Pulse Rate 88 08/04/17 09:37 Respiratory Rate 18 08/04/17 09:37 Blood Pressure 119/74 08/04/17 09:37 O2 Sat by Pulse Oximetry (%) Laboratory Tests 08/03/17 08/04/17 08/04/17 17:50 07:00 07:00 WBC 4.2 RBC 3.73 Hgb 12.3 Hct 37.4 MCV 100.2 H MCH 33.1 MCHC 33.1 RDW 14.9 Plt Count 269 MPV 7.7 Manual Slide Review No Result Required. Sodium Potassium Chloride Carbon Dioxide Anion Gap BUN Creatinine Creat Clearance w eGFR Random Glucose Calcium Total Bilirubin AST ALT Alkaline Phosphatase Total Protein Albumin Urine Color Yellow Urine Appearance Slcloudy Urine pH 5.0 Ur Specific [place] 1.013 Urine Protein Negative Urine Glucose (UA) Negative Urine Ketones Negative Urine Blood Negative Urine Nitrite Negative Urine Bilirubin Negative Urine Urobilinogen Negative Ur Leukocyte Esterase Trace H HIV 1&2 Antibody Screen Negative HIV P24 Antigen Negative 08/04/17 07:00 WBC RBC Hgb Hct MCV MCH MCHC RDW Plt Count MPV Manual Slide Review Sodium 141 Potassium 3.5 Chloride 107 Carbon Dioxide 26 Anion Gap 8 BUN 23 H D Creatinine 1.1 H D Creat Clearance w eGFR 51.20 Random Glucose 131 H Calcium 8.1 L Total Bilirubin 0.5 D AST 15 ALT 23 Alkaline Phosphatase 86 Total Protein 6.6 Albumin 3.2 L Urine Color Urine Appearance Urine pH Ur Specific [place] Urine Protein Urine Glucose (UA) Urine Ketones Urine Blood Urine Nitrite Urine Bilirubin Urine Urobilinogen Ur Leukocyte Esterase HIV 1&2 Antibody Screen HIV P24 Antigen aaox3 ambulating no acute distress Assessment: 08/04/17 11:18 withdrawal sx Plan: continue detox increase fluids augmentin 875mg bid x 7 days lidocaine s/s prn aveeno soap vitamin A&D ointment
[2017-08-04] MEDS ORDERED: AMMONIUM LACTATE 12% LOTION 225 GM BOTTLE TP PRN (11:27)
[2017-08-04] MEDS: VITAMINS A AND D TOPICAL OINTMENT 60 GM TUBE TP SCH ×4 (13:04→23:33)
[2017-08-04] MEDS: AMOX TR/POT CLAV 875MG/125MG TABLETS (FP) PO SCH ×2 (13:04→18:06)
[2017-08-04] MEDS: ATORVASTATIN CA 10 MG TABLET (FP) PO SCH (22:08)
[2017-08-04] MEDS: risperiDONE 2 MG TABLET PO SCH (22:08)
[2017-08-04] MEDS: LIDOCAINE PATCH REMOVAL MC SCH (22:08)
[2017-08-04] MEDS: MONTELUKAST NA 10 MG TABLET PO SCH (22:09)
[2017-08-04] MEDS: THIAMINE HCL 100 MG TABLET (FP) PO SCH (22:09)
[2017-08-04] MEDS: ACETAMINOPHEN 325 MG TABLET (FP) PO PRN (23:33)
--- NOTE | 2017-08-05 01:02 | EKG ---
Test Reason : Blood Pressure : / mmHG Vent. Rate : 099 BPM Atrial Rate : 099 BPM P-R Int : 130 ms QRS Dur : 084 ms QT Int : 370 ms P-R-T Axes : 077 055 062 degrees QTc Int : 474 ms NORMAL SINUS RHYTHM POSSIBLE LEFT ATRIAL ENLARGEMENT BORDERLINE ECG WHEN COMPARED WITH ECG OF 27-MAY-2017 22:10, NO SIGNIFICANT CHANGE WAS FOUND Confirmed by AZUL VELASCO MD ([id number]) on 08/05/2017 1:02:47 AM Referred By: Confirmed By:AZUL VELASCO MD
[2017-08-05] MEDS: chlordiazePOXIDE HCL 25 MG CAPSULE PO SCH ×2 (05:18→11:04)
[2017-08-05] MEDS: VITAMINS A AND D TOPICAL OINTMENT 60 GM TUBE TP SCH ×4 (06:13→23:09)
[2017-08-05] MEDS: AMOX TR/POT CLAV 875MG/125MG TABLETS (FP) PO SCH ×2 (08:13→17:44)
--- NOTE | 2017-08-05 10:30 | PN ---
S CIWA - CIWA Score Nausea/Vomitin-No Nausea/No Vomiting Muscle Tremors: 4-Moderate,w/Arms Extend Anxiety: 3 Agitation: 3 Paroxysmal Sweats: 3 Orientation: 0-Oriented Tacttile Disturbances: 0-None Auditory Disturbances: 0-None Visual Disturbances: 0-None Headache: 0-None Present CIWA-Ar Total Score: 13 BHS Progress Note (SOAP) Subjective: sweats shakes agitation interrupted sleep Objective: 08/05/17 10:29 Vital Signs Temperature 97.7 F 08/05/17 06:00 Pulse Rate 88 08/05/17 06:00 Respiratory Rate 18 08/05/17 06:00 Blood Pressure 117/64 08/05/17 06:00 O2 Sat by Pulse Oximetry (%) Laboratory Tests 08/03/17 08/04/17 08/04/17 17:50 07:00 07:00 WBC 4.2 RBC 3.73 Hgb 12.3 Hct 37.4 MCV 100.2 H MCH 33.1 MCHC 33.1 RDW 14.9 Plt Count 269 MPV 7.7 Manual Slide Review No Result Required. Sodium Potassium Chloride Carbon Dioxide Anion Gap BUN Creatinine Creat Clearance w eGFR Random Glucose Calcium Total Bilirubin AST ALT Alkaline Phosphatase Total Protein Albumin Urine Color Yellow Urine Appearance Slcloudy Urine pH 5.0 Ur Specific [place] 1.013 Urine Protein Negative Urine Glucose (UA) Negative Urine Ketones Negative Urine Blood Negative Urine Nitrite Negative Urine Bilirubin Negative Urine Urobilinogen Negative Ur Leukocyte Esterase Trace H RPR Titer HIV 1&2 Antibody Screen Negative HIV P24 Antigen Negative 08/04/17 08/04/17 07:00 07:00 WBC RBC Hgb Hct MCV MCH MCHC RDW Plt Count MPV Manual Slide Review Sodium 141 Potassium 3.5 Chloride 107 Carbon Dioxide 26 Anion Gap 8 BUN 23 H D Creatinine 1.1 H D Creat Clearance w eGFR 51.20 Random Glucose 131 H Calcium 8.1 L Total Bilirubin 0.5 D AST 15 ALT 23 Alkaline Phosphatase 86 Total Protein 6.6 Albumin 3.2 L Urine Color Urine Appearance Urine pH Ur Specific [place] Urine Protein Urine Glucose (UA) Urine Ketones Urine Blood Urine Nitrite Urine Bilirubin Urine Urobilinogen Ur Leukocyte Esterase RPR Titer Nonreactive HIV 1&2 Antibody Screen HIV P24 Antigen aaox3 ambulating no acute distress Assessment: 08/05/17 10:30 withdrawal sx Plan: continue detox increase fluids
[2017-08-05] MEDS: PRENATAL VITAMINS W/ FOLIC ACID TABLET (FP) PO SCH (10:56)
[2017-08-05] MEDS: HYDROCHLOROTHIAZIDE 12.5 MG CAPSULE (FP) PO SCH (10:56)
[2017-08-05] MEDS: ASPIRIN 81 MG CHEWABLE TABLETS PO SCH (10:56)
[2017-08-05] MEDS: BUDESONIDE/FORMETEROL FUMARATE 160/4.5 mcg INHALER IH SCH ×2 (10:57→22:28)
[2017-08-05] MEDS: amLODIPine BESYLATE 5 MG TABLET (FP) PO SCH (10:57)
[2017-08-05] MEDS: NICOTINE 21 MG/24 HOURS TOPICAL PATCH TD SCH (10:57)
[2017-08-05] MEDS: FLUTICASONE PROP 0.05% 16 GM NASAL SPRAY NS SCH (10:57)
[2017-08-05] MEDS: PANTOPRAZOLE 40 MG TABLET (FP) PO SCH (10:59)
[2017-08-05] MEDS: LIDOCAINE 5% TOPICAL PATCH TP SCH (10:59)
[2017-08-05] MEDS: TOLNAFTATE 1% CREAM 15 GM TUBE TP SCH ×2 (11:00→22:28)
[2017-08-05] MEDS: chlordiazePOXIDE 5 MG CAPSULE PO SCH ×3 (17:36→23:05)
[2017-08-05] MEDS: ATORVASTATIN CA 10 MG TABLET (FP) PO SCH (22:27)
[2017-08-05] MEDS: risperiDONE 2 MG TABLET PO SCH (22:27)
[2017-08-05] MEDS: LIDOCAINE PATCH REMOVAL MC SCH (22:27)
[2017-08-05] MEDS: THIAMINE HCL 100 MG TABLET (FP) PO SCH (22:28)
[2017-08-05] MEDS: MONTELUKAST NA 10 MG TABLET PO SCH (22:28)
[2017-08-06] MEDS: chlordiazePOXIDE 5 MG CAPSULE PO SCH ×2 (06:31→11:43)
[2017-08-06] MEDS: VITAMINS A AND D TOPICAL OINTMENT 60 GM TUBE TP SCH ×4 (06:33→23:45)
[2017-08-06] MEDS: IBUPROFEN 400 MG TABLET (FP) PO PRN ×2 (06:35→22:05)
[2017-08-06] MEDS: AMOX TR/POT CLAV 875MG/125MG TABLETS (FP) PO SCH ×2 (07:54→17:14)
[2017-08-06] MEDS: FLUTICASONE PROP 0.05% 16 GM NASAL SPRAY NS SCH (11:02)
[2017-08-06] MEDS: ASPIRIN 81 MG CHEWABLE TABLETS PO SCH (11:02)
[2017-08-06] MEDS: LIDOCAINE 5% TOPICAL PATCH TP SCH (11:03)
[2017-08-06] MEDS: HYDROCHLOROTHIAZIDE 12.5 MG CAPSULE (FP) PO SCH (11:03)
[2017-08-06] MEDS: NICOTINE 21 MG/24 HOURS TOPICAL PATCH TD SCH (11:03)
[2017-08-06] MEDS: BUDESONIDE/FORMETEROL FUMARATE 160/4.5 mcg INHALER IH SCH ×2 (11:03→22:03)
[2017-08-06] MEDS: amLODIPine BESYLATE 5 MG TABLET (FP) PO SCH (11:04)
[2017-08-06] MEDS: TOLNAFTATE 1% CREAM 15 GM TUBE TP SCH ×2 (11:04→22:04)
[2017-08-06] MEDS: PANTOPRAZOLE 40 MG TABLET (FP) PO SCH (11:04)
[2017-08-06] MEDS: PRENATAL VITAMINS W/ FOLIC ACID TABLET (FP) PO SCH (11:04)
--- NOTE | 2017-08-06 13:02 | PN ---
BHS Progress Note (SOAP) Subjective: sweat tired Objective: 08/06/17 13:01 Vital Signs Temperature 98.2 F 08/06/17 10:00 Pulse Rate 106 H 08/06/17 10:00 Respiratory Rate 18 08/06/17 10:00 Blood Pressure 114/74 08/06/17 10:00 O2 Sat by Pulse Oximetry (%) aaox3 ambulating no acute distress Assessment: 08/06/17 13:02 withdrawal sx Plan: continue detox increase fluids f/u pending labs d/c in am
[2017-08-06 14:01] LABS: ALBUMIN 3.1 g/dl (3.4-5.0); ALK PHOS 78 U/L (45-117); ANION GAP 11 (8-16); BILIRUBIN,TOTAL 0.3 mg/dL (0.2-1.0); CALCIUM 9.2 mg/dL (8.5-10.1); CO2 26 mmol/L (21-32); CREATININE 0.9 mg/dL (0.55-1.02); GLUCOSE,RANDOM 151 mg/dL (74-106); SGOT/AST 15 U/L (15-37); SGPT/ALT 22 U/L (12-78); TOT PROT 6.2 g/dl (6.4-8.2)
[2017-08-06] MEDS: MAGNESIUM HYDROX 2400MG/30ML ORAL SUSPENSION 30 ML CUP PO PRN (18:01)
[2017-08-06] MEDS: chlordiazePOXIDE HCL 10 MG CAPSULE PO SCH ×2 (18:53→22:51)
[2017-08-06] MEDS: ACETAMINOPHEN 325 MG TABLET (FP) PO PRN (18:58)
[2017-08-06] MEDS: risperiDONE 2 MG TABLET PO SCH (22:04)
[2017-08-06] MEDS: ATORVASTATIN CA 10 MG TABLET (FP) PO SCH (22:04)
[2017-08-06] MEDS: MONTELUKAST NA 10 MG TABLET PO SCH (22:04)
[2017-08-06] MEDS: THIAMINE HCL 100 MG TABLET (FP) PO SCH (22:04)
[2017-08-06] MEDS: LIDOCAINE PATCH REMOVAL MC SCH (22:51)
[2017-08-07] MEDS: chlordiazePOXIDE HCL 10 MG CAPSULE PO SCH ×2 (06:22→10:33)
[2017-08-07] MEDS: VITAMINS A AND D TOPICAL OINTMENT 60 GM TUBE TP SCH ×2 (06:22→13:18)
[2017-08-07] MEDS: AMOX TR/POT CLAV 875MG/125MG TABLETS (FP) PO SCH (07:55)
--- NOTE | 2017-08-07 09:00 | DS ---
[facility] Detox Discharge Summary Admission Date: 08/03/17 Discharge Date: 08/07/17 - History Present History: Alcohol Dependence, Cocaine Dependence - Physical Exam Results Vital Signs: Vital Signs Temperature 97.5 F L 08/07/17 06:29 Pulse Rate 91 H 08/07/17 06:29 Respiratory Rate 18 08/07/17 06:29 Blood Pressure 127/77 08/07/17 06:29 O2 Sat by Pulse Oximetry (%) - Treatment Hospital Course: Detox Protocol Followed, Detoxed Safely, Responded well, Discharged Condition Good, Rehab Referral Accepted - Medication Discharge Medications: Ambulatory Orders Fluticasone Prop 0.05% Nasal [Flonase -] 1 - 2 spray NS DAILY #1 spray 02/17/16 Multivitamins [Multivit ([facility] Formulary)] 1 tab PO DAILY 05/07/16 Atorvastatin Ca [Lipitor] 10 mg PO HS #30 mg 03/07/17 Alendronate Sodium [Binosto] 70 mg PO WEEKLY 30 Days tab 05/30/17 Aspirin [ASA -] 81 mg PO DAILY #30 mg 05/30/17 Budesonide/Formeterol Fumarate [SYMBICORT 160/4.5mcg -] 2 puff IH BID #1 inhaler 05/30/17 Fluticasone/Salmeterol [Advair 250-50 Diskus] 1 each IH BID #1 disk.w.dev Pantoprazole Sodium [Protonix -] 40 mg PO DAILY #30 mg 05/30/17 Amlodipine Besylate [Norvasc -] 5 mg PO DAILY 05/31/17 Hydrochlorothiazide [Hctz -] 12.5 mg PO DAILY 05/31/17 Albuterol Sulfate Inhaler - [Ventolin HFA Inhaler -] 2 inh IH Q4H PRN #1 inhaler 06/12/17 Montelukast Na [Singulair -] 10 mg PO HS #30 mg 06/12/17 Tolnaftate 1% Cream [Tinactin 1% Cream -] 1 applic TP BID 30 Days cm 06/12/17 Risperidone [Risperdal -] 2 mg PO HS #30 tablet 08/04/17 - Diagnosis (1) Alcohol dependence with uncomplicated withdrawal Current Visit: Yes Status: Chronic (2) Positive PPD Current Visit: Yes Status: Chronic (3) Arthritis Current Visit: No Status: Chronic (4) Asthma Current Visit: No Status: Chronic Qualifiers: Asthma severity: mild (5) Cocaine dependence, uncomplicated Current Visit: No Status: Chronic (6) GERD (gastroesophageal reflux disease) Current Visit: No Status: Chronic Qualifiers: Esophagitis presence: without esophagitis (7) Hypertension Current Visit: No Status: Chronic Qualifiers: Hypertension type: essential hypertension (8) Nicotine dependence Current Visit: No Status: Chronic Qualifiers: Nicotine product type: cigarettes Substance use status: uncomplicated Qualified Code(s): F17.210 - Nicotine dependence, cigarettes, uncomplicated (9) Schizoaffective disorder Current Visit: No Status: Chronic Qualifiers: Schizoaffective disorder type: other Qualified Code(s): F25.8 - Other schizoaffective disorders (10) Tinea pedis Current Visit: No Status: Chronic Qualifiers: Laterality: bilateral Qualified Code(s): B35.3 - Tinea pedis - AMA Did Patient Leave Against Medical Advice: No (going to [facility])
[2017-08-07 09:30] VITALS: PULSE 102
[2017-08-07] MEDS: FLUTICASONE PROP 0.05% 16 GM NASAL SPRAY NS SCH (10:29)
[2017-08-07] MEDS: BUDESONIDE/FORMETEROL FUMARATE 160/4.5 mcg INHALER IH SCH (10:29)
[2017-08-07] MEDS: HYDROCHLOROTHIAZIDE 12.5 MG CAPSULE (FP) PO SCH (10:30)
[2017-08-07] MEDS: METHYL SALICYLATE/MENTHOL OINT 30 GM TUBE TP SCH ×2 (10:30→11:25)
[2017-08-07] MEDS: PRENATAL VITAMINS W/ FOLIC ACID TABLET (FP) PO SCH (10:30)
[2017-08-07] MEDS: PANTOPRAZOLE 40 MG TABLET (FP) PO SCH (10:30)
[2017-08-07] MEDS: ASPIRIN 81 MG CHEWABLE TABLETS PO SCH (10:32)
[2017-08-07] MEDS: amLODIPine BESYLATE 5 MG TABLET (FP) PO SCH (10:32)
[2017-08-07] MEDS: TOLNAFTATE 1% CREAM 15 GM TUBE TP SCH (10:33)
[2017-08-07] MEDS: NICOTINE 21 MG/24 HOURS TOPICAL PATCH TD SCH (10:34)
[2017-08-07] MEDS: IBUPROFEN 400 MG TABLET (FP) PO PRN (10:34)
[2017-08-07] MEDS: LIDOCAINE 5% TOPICAL PATCH TP SCH (10:35)
[2017-08-07 14:48] VITALS: BP 143/90; TEMP 98.1
== END 2017-08-07 14:10 | disposition home or self-care (01) | DRG 774 ==
LOC: YASAS 14:34 → Y6N 15:12
PROVIDERS: ADMIT Internal Medicine; ATTEND Internal Medicine
PROC: HZ2ZZZZ Detoxification Services for Substance Abuse Treatment (ICD-10-PCS; principal; 2017-08-03)
DX: F10.230 Alcohol dependence with withdrawal, uncomplicated (principal); F14.20 Cocaine dependence, uncomplicated; F17.210 Nicotine dependence, cigarettes, uncomplicated; F25.9 Schizoaffective disorder, unspecified; D64.9 Anemia, unspecified; I10 Essential (primary) hypertension; J45.909 Unspecified asthma, uncomplicated; J44.9 Chronic obstructive pulmonary disease, unspecified; M13.862 Other specified arthritis, left knee; M13.861 Other specified arthritis, right knee; R76.11 Nonspecific reaction to tuberculin skin test without active tuberculosis; K21.9 Gastro-esophageal reflux disease without esophagitis; B35.3 Tinea pedis; R00.0 Tachycardia, unspecified; Z79.82 Long term (current) use of aspirin; Z91.013 Allergy to seafood; Z91.018 Allergy to other foods; Z91.14 Patient's other noncompliance with medication regimen
CPT/HCPCS: 36415; 80053; 81003; 81015; 85027; 86593; 87389; 93005; 93010

== ENCOUNTER 2017-09-24 09:53 | Inpatient (IN) | payer OTHER ==
[2017-09-24 10:57] VITALS: BMI 30.5
[2017-09-24] MEDS ORDERED: guaiFENesin/D-METHORPHAN HB 10 ML UNIT-DOSE CUPS PO PRN (12:28)
[2017-09-24] MEDS ORDERED: LOPERAMIDE HCL 2 MG CAPSULE PO PRN (12:28)
[2017-09-24] MEDS ORDERED: NICOTINE POLACRILEX 2 MG GUM BUC PRN (12:28)
[2017-09-24] MEDS ORDERED: chlordiazePOXIDE HCL 25 MG CAPSULE PO PRN (12:28)
[2017-09-24] MEDS ORDERED: MAGNESIUM CITRATE 300 ML BOTTLE PO PRN (12:28)
[2017-09-24] MEDS ORDERED: MAGNESIUM HYDROX 2400MG/30ML ORAL SUSPENSION 30 ML CUP PO PRN (12:28)
[2017-09-24] MEDS ORDERED: IBUPROFEN 400 MG TABLET (FP) PO PRN (12:28)
[2017-09-24] MEDS ORDERED: MENTHOL/PHENOL 1 EACH UD MM PRN (12:28)
[2017-09-24] MEDS ORDERED: hydrOXYzine PAMOATE 50 MG CAPSULE (FP) PO PRN (12:28)
[2017-09-24] MEDS ORDERED: P-EPHED 60MG/TRIPROLIDI 2.5MG TABLET PO PRN (12:28)
[2017-09-24] MEDS ORDERED: MAG HYDROX/AL HYDROX/SIMETH 30 ML UNIT-DOSE CUP PO PRN (12:28)
--- NOTE | 2017-09-24 12:28 | HP ---
CIWA Score - CIWA Score Nausea/Vomitin Muscle Tremors: 4-Moderate,w/Arms Extend Anxiety: 3 Agitation: 3 Paroxysmal Sweats: 3 Orientation: 0-Oriented Tacttile Disturbances: 1-Very Mild Itch/Numbness Auditory Disturbances: 0-None Visual Disturbances: 0-None Headache: 1-Very Mild CIWA-Ar Total Score: 18 Admission ROS S - HPI Chief Complaint: alcohol withdrawal sx Allergies/Adverse Reactions: Allergies Allergy/AdvReac Type Severity Reaction Status Date / Time mushroom Allergy Severe Rash Verified 09/24/17 10:50 No Known Drug Allergies Allergy Verified 09/24/17 10:50 salmon Allergy Severe Difficulty Uncoded 09/24/17 10:50 Breathing History of Present Illness: 57 yo f with h/o crack cocaine, nicotine and alcohol dependence admitted for inpatient detoxification from alcohol because of alcohol withdrawal sx she does not drink, last drink yesterday denies seziures, DTS no si reported, thirsty, anxiety , [id number], insomnia, PMHX schizophrenia Exam Limitations: No Limitations - Ebola screening Have you traveled outside of the country in the last 21 days: No Have you had contact with anyone from an Ebola affected area: No Have you been sick,other than usual withdrawal symptoms: No - Review of Systems Constitutional: Chills, Diaphoresis, Night Sweats, Changes in sleep, Weakness, Unintentional Wgt. Loss EENT: reports: No Symptoms Reported Respiratory: reports: No Symptoms reported Cardiac: reports: No Symptoms Reported GI: reports: Nausea, Poor Appetite, Poor Fluid Intake, Abdominal cramping : reports: No Symptoms Reported Musculoskeletal: reports: Joint Pain (knee pain from arthritis) Integumentary: reports: Flushing, Sweating Neuro: reports: Headache, Numbness, Paresthesia, Tingling, Tremors, Weakness Endocrine: reports: Increased Thirst Hematology: reports: No Symptoms Reported Psychiatric: reports: Judgement Intact, Mood/Affect Appropiate, Orientated x3, Anxious, Depressed Other Systems: Reviewed and Negative Patient History - Patient Medical History Hx Anemia: Yes Hx Asthma: Yes (Pt is on MDI) Hx Chronic Obstructive Pulmonary Disease (COPD): No Hx Cancer: No Hx Cardiac Disorders: No Hx Congestive Heart Failure: No Hx Hypertension: Yes (on meds.) Hx Hypercholesterolemia: No Hx Pacemaker: No HX Cerebrovascular Accident: No Hx Seizures: No Hx Dementia: No Hx Diabetes: No Hx Gastrointestinal Disorders: Yes (Hx of GERD) Hx Liver Disease: No Hx Genitourinary Disorders: No Hx Sexually Transmitted Disorders: No Hx Renal Disease (ESRD): No Hx Thyroid Disease: No Hx Human Immunodeficiency Virus (HIV): No (last 01/22) Hx Hepatitis C: No Hx Depression: Yes Hx Suicide Attempt: No (no SI) Hx Bipolar Disorder: No Hx Schizophrenia: No - Patient Surgical History Past Surgical History: Yes Hx Neurologic Surgery: No Hx Cataract Extraction: No Hx Cardiac Surgery: No Hx Lung Surgery: No Hx Breast Surgery: No Hx Breast Biopsy: No Hx Abdominal Surgery: No Hx Appendectomy: No Hx Cholecystectomy: No Hx Genitourinary Surgery: No Hx Section: Yes (x2) Hx Orthopedic Surgery: Yes (right ankle fx many yrs ago) Hx Hysterectomy: No Anesthesia Reaction: No - PPD History Previous Implant?: Yes Documented Results: Positive w/proof Implanted On Prior [facility] Admission?: No Results: CXR 10/2016 - Reproductive History Last Menstrual Period: 05/08/90 Patient : No - Smoking Cessation Smoking history: Current every day smoker Have you smoked in the past 12 months: Yes Aproximately how many cigarettes per day: 20 Cigars Per Day: 0 Hx Chewing Tobacco Use: No Initiated information on smoking cessation: Yes 'Breaking Loose' booklet given: 09/24/17 - Substance & Tx. History Hx Alcohol Use: Yes Hx Substance Use: Yes Substance Use Type: Alcohol, Cocaine Hx Substance Use Treatment: Yes ([facility]) - Substances Abused Alcohol Route: Oral Frequency: Daily Amount used: 12PK BEER Age of first use: 10 Date of Last Use: 09/24/17 Crack Route: Smoking Frequency: Daily Amount used: $100 Age of first use: 28 Date of Last Use: 09/24/17 Family Disease History - Family Disease History Family Disease History: Heart Disease: Father (), Mother (), Other: Brother (only child) Admission Physical Exam BHS - Vital Signs Vital Signs: Vital Signs - 24 hr 09/24/17 10:45 Temperature 97.6 F Pulse Rate 87 Respiratory 18 Rate Blood Pressure 144/92 - Physical General Appearance: Yes: Nourished, Appropriately Dressed, Disheveled, Mild Distress, Obese, Tremorous, Irritable, Sweating, Anxious HEENTM: Yes: EOMI, Hearing grossly Normal, Normocephalic, Normal Voice, COLIN, Pharynx Normal, Other (dental abscess) Respiratory: Yes: Within Normal Limits, Chest Non-Tender, Lungs Clear, Normal Breath Sounds, No Respiratory Distress, No Accessory Muscle Use Neck: Yes: Within Normal Limits, No masses,lesions,Nodules, Supple, Trachea in good position Breast: Yes: Breast Exam Deferred Cardiology: Yes: Within Normal Limits, Regular Rhythm, Regular Rate, S1, S2 Abdominal: Yes: Within Normal Limits, Normal Bowel Sounds, Non Tender, Flat, Soft, Increased Bowel Sounds Genitourinary: Yes: Within Normal Limits Back: Yes: Within Normal Limits, Normal Inspection Musculoskeletal: Yes: full range of Motion, Gait Steady, Pelvis Stable, Joint Stiffness (arthritis) Extremities: Yes: Normal Capillary Refill, Normal Inspection, Normal Range of Motion, Tremors Neurological: Yes: lion tamer II-XII NML intact, Fully Oriented, Alert, Motor Strength 5/5, Normal Response, Depressed Affect Integumentary: Yes: Normal Color, Warm, Diaphoresis, Moist Lymphatic: Yes: Within Normal Limits - Addiitonal Findings: withdrawal sx - Diagnostic (1) Alcohol dependence with uncomplicated withdrawal Current Visit: No Status: Chronic (2) Arthritis Current Visit: No Status: Chronic (3) Asthma Current Visit: No Status: Chronic (4) Cocaine dependence, uncomplicated Current Visit: No Status: Chronic (5) GERD (gastroesophageal reflux disease) Current Visit: No Status: Chronic Qualifiers: (6) Hypertension Current Visit: No Status: Chronic Qualifiers: (7) Nicotine dependence Current Visit: No Status: Chronic Qualifiers: (8) Positive PPD Current Visit: No Status: Chronic Cleared for Admission BHS - Detox or Rehab Detox Regimen/Protocol: Librium S Breath Alcohol Content Breath Alcohol Content: 0 Urine Pregancy Test - Result Urine Test Results: Negative- NO Line Present Urine Drug Screen - Results Drug Screen Negative: No Urine Drug Screen Results: KULWINDER-Cocaine
[2017-09-24] MEDS ORDERED: ALBUTEROL SO4 18 GM HFA INHALER IH PRN (12:29)
[2017-09-24] MEDS ORDERED: COLLOIDAL OATMEAL 1 BAR EACH TP PRN (12:30)
[2017-09-24] MEDS ORDERED: AMMONIUM LACTATE 12% LOTION 225 GM BOTTLE TP PRN (12:30)
[2017-09-24] MEDS ORDERED: chlordiazePOXIDE HCL 25 MG CAPSULE PO ONE (14:41)
[2017-09-24] MEDS: HYDROCHLOROTHIAZIDE 12.5 MG CAPSULE (FP) PO SCH (15:50)
[2017-09-24] MEDS: AMOXICILLIN 500 MG CAPSULE (FP) PO SCH ×2 (15:50→22:51)
[2017-09-24] MEDS: amLODIPine BESYLATE 5 MG TABLET (FP) PO SCH (15:51)
[2017-09-24] MEDS: CYCLOBENZAPRINE HCL 10 MG TABLET (FP) PO SCH ×2 (15:51→22:51)
[2017-09-24] MEDS: NICOTINE 14 MG/24 HOURS TOPICAL PATCH TD SCH (15:52)
[2017-09-24] MEDS: BUDESONIDE/FORMETEROL FUMARATE 160/4.5 mcg INHALER IH SCH ×2 (15:52→22:52)
[2017-09-24] MEDS: METHYL SALICYLATE/MENTHOL OINT 30 GM TUBE TP SCH (15:53)
[2017-09-24] MEDS: TOLNAFTATE 1% CREAM 15 GM TUBE TP SCH ×2 (15:53→22:52)
[2017-09-24] MEDS: chlordiazePOXIDE HCL 25 MG CAPSULE PO SCH ×2 (17:51→22:52)
[2017-09-24] MEDS: LIDOCAINE 5% TOPICAL PATCH TP SCH (17:58)
[2017-09-24] MEDS ORDERED: BUDESONIDE/FORMETEROL FUMARATE 80/4.5 mcg INHALER IH SCH (22:00)
[2017-09-24] MEDS: ATORVASTATIN CA 10 MG TABLET (FP) PO SCH (22:51)
[2017-09-24] MEDS: MONTELUKAST NA 10 MG TABLET PO SCH (22:51)
[2017-09-24] MEDS: risperiDONE 2 MG TABLET PO SCH (22:51)
[2017-09-24] MEDS: LIDOCAINE PATCH REMOVAL MC SCH (22:51)
[2017-09-24] MEDS: VITAMINS A AND D TOPICAL OINTMENT 60 GM TUBE TP SCH (22:52)
[2017-09-24] MEDS: THIAMINE HCL 100 MG TABLET (FP) PO SCH (22:52)
--- NOTE | 2017-09-24 23:05 | PN ---
S Progress Note Note: received nurse called that the patient refuses all medications but antihypertensants encourage health teaching on benefits of alcohol detox regimen
[2017-09-24 23:37] LABS: URINE APPEARANCE CLEAR; URINE BILIRUBIN NEGATIVE (NEGATIVE); URINE BLOOD 1+ (NEGATIVE); URINE COLOR LTYELLOW; URINE GLUCOSE (UA) NEGATIVE (NEGATIVE); URINE KETONE NEGATIVE (NEGATIVE); URINE LEUK ESTERASE NEGATIVE (NEGATIVE); URINE NITRITE NEGATIVE (NEGATIVE); URINE PROTEIN NEGATIVE (NEGATIVE); URINE UROBILINOGEN NEGATIVE mg/dL (0.2-1.0)
[2017-09-25 00:01] LABS: EPI CELLS RARE /HPF (FEW)
[2017-09-25] MEDS: VITAMINS A AND D TOPICAL OINTMENT 60 GM TUBE TP SCH ×5 (05:38→23:04)
[2017-09-25] MEDS: AMOXICILLIN 500 MG CAPSULE (FP) PO SCH ×3 (05:39→22:13)
[2017-09-25] MEDS: chlordiazePOXIDE HCL 25 MG CAPSULE PO SCH ×4 (05:39→22:13)
[2017-09-25] MEDS: CYCLOBENZAPRINE HCL 10 MG TABLET (FP) PO SCH ×3 (05:39→22:13)
--- NOTE | 2017-09-25 09:19 | CONSULT ---
[facility] Psychiatric Consult - Data Date of interview: 09/25/17 Admission source: [facility] Identifying data: This is 57 years old female with hisotry of Schizophrenia, with no psychiatric hospitalization history intoxiocated wutrh: Alcohol, Cocaine, Nicotine Substance Abuse History: - Smoking Cessation. Smoking history: Current every day smoker. Have you smoked in the past 12 months: Yes. Aproximately how many cigarettes per day: 20. Cigars Per Day: 0. Hx Chewing Tobacco Use: No. Initiated information on smoking cessation: Yes. 'Breaking Loose' booklet given : 09/24/17. - Substance & Tx. History. Hx Alcohol Use: Yes. Hx Substance Use : Yes. Substance Use Type: Alcohol, Cocaine. Hx Substance Use Treatment: Yes ( [facility]). - Substances Abused. Alcohol. Route: Oral. Frequency: Daily. Amount used: 12PK BEER. Age of first use: 10. Date of Last Use: . Crack. Route: Smoking. Frequency: Daily. Amount used: $100. Age of first use: 28. Date of Last Use: 09/24/17 Medical History: Asthma, Arthritis, GERD, HTN Psychiatric History: PATIENT REPORTS HGISTORY OF sCHIZOPHRENIA, DENIES PSYCHIATRTIC HOSPITALIZATION HISTOERY, REPORTS TAKING PRIOR TO ADMISSION: RISPERDAL 2MG PO QHS Physical/Sexual Abuse/Trauma History: Denies Additional Comment: RISPERDAL 2MG PO QHS Mental Status Exam - Mental Status Exam Alert and Oriented to: Person Cognitive Function: Fair Patient Appearance: Unkempt Mood: Anxious Affect: Mood Congruent Patient Behavior: Cooperative Speech Pattern: Appropriate Voice Loudness: Normal Thought Process: Circumstantial, Goal Oriented Thought Disorder: Being Controlled Hallucinations: Denies Suicidal Ideation: Denies Homicidal Ideation: Denies Insight/Judgement: Fair Sleep: Difficulty falling asleep Appetite: Weight gain Muscle strength/Tone: Mild Hypotonicity Gait/Station: Shuffling Additional Comments: RISPERDAL 2MG PO QHS Psychiatric Findings - Problem List ([place] 1, 2,3) (1) Alcohol dependence with uncomplicated withdrawal Current Visit: No Status: Chronic (2) Cocaine dependence, uncomplicated Current Visit: No Status: Chronic (3) Hypertension Current Visit: No Status: Chronic Qualifiers: (4) Nicotine dependence Current Visit: No Status: Chronic Qualifiers: (5) Schizoaffective disorder Current Visit: No Status: Chronic Qualifiers: Schizoaffective disorder type: other Qualified Code(s): F25.8 - Other schizoaffective disorders - Initial Treatment Plan Initial Treatment Plan: RISPERDAL 2MG PO QHS
[2017-09-25] MEDS: BUDESONIDE/FORMETEROL FUMARATE 160/4.5 mcg INHALER IH SCH ×2 (10:00→22:12)
[2017-09-25] MEDS: ASPIRIN 81 MG CHEWABLE TABLETS PO SCH (10:23)
[2017-09-25] MEDS: amLODIPine BESYLATE 5 MG TABLET (FP) PO SCH (10:23)
[2017-09-25] MEDS: NICOTINE 14 MG/24 HOURS TOPICAL PATCH TD SCH (10:24)
[2017-09-25] MEDS: PRENATAL VITAMINS W/ FOLIC ACID TABLET (FP) PO SCH (10:24)
[2017-09-25] MEDS: PANTOPRAZOLE 40 MG TABLET (FP) PO SCH (10:24)
[2017-09-25] MEDS: HYDROCHLOROTHIAZIDE 12.5 MG CAPSULE (FP) PO SCH (10:26)
[2017-09-25] MEDS: TOLNAFTATE 1% CREAM 15 GM TUBE TP SCH ×2 (10:30→22:14)
[2017-09-25 10:40] LABS: HEMATOCRIT 40.3 % (32.4-45.2); HEMOGLOBIN 13.1 GM/dL (10.7-15.3); MCH 32.4 pg (25.7-33.7); MCHC 32.5 g/dl (32.0-36.0); MEAN CELL VOLUME 99.8 fl (80-96); MEAN PLT VOLUME 7.6 fl (7.5-11.1); PLATELET COUNT 346 K/MM3 (134-434); RBC 4.04 M/mm3 (3.60-5.2); RDW 14.8 % (11.6-15.6); WHITE BLOOD COUNT 4.7 K/mm3 (4.0-10.0)
[2017-09-25] MEDS: LIDOCAINE 5% TOPICAL PATCH TP SCH (11:00)
--- NOTE | 2017-09-25 11:16 | PN ---
S CIWA - CIWA Score Nausea/Vomitin-No Nausea/No Vomiting Muscle Tremors: 4-Moderate,w/Arms Extend Anxiety: 3 Agitation: 3 Paroxysmal Sweats: 3 Orientation: 0-Oriented Tacttile Disturbances: 0-None Auditory Disturbances: 0-None Visual Disturbances: 0-None Headache: 1-Very Mild CIWA-Ar Total Score: 14 S Progress Note (SOAP) Subjective: shakes sweats interrupted sleep agitation knee pain sweats shakes body aches Objective: 09/25/17 11:14 Vital Signs Temperature 97.7 F 09/25/17 09:20 Pulse Rate 99 H 09/25/17 09:20 Respiratory Rate 18 09/25/17 09:20 Blood Pressure 110/74 09/25/17 09:20 O2 Sat by Pulse Oximetry (%) Laboratory Tests 09/24/17 09/24/17 09/25/17 11:00 21:52 06:00 WBC 4.7 RBC 4.04 Hgb 13.1 Hct 40.3 MCV 99.8 H MCH 32.4 MCHC 32.5 RDW 14.8 Plt Count 346 D MPV 7.6 Urine Color Ltyellow Urine Appearance Clear Urine pH 5.0 Ur Specific [place] 1.015 Urine Protein Negative Urine Glucose (UA) Negative Urine Ketones Negative Urine Blood 1+ H Urine Nitrite Negative Urine Bilirubin Negative Urine Urobilinogen Negative Ur Leukocyte Esterase Negative Urine WBC (Auto) 2 Urine RBC (Auto) 5 Ur Epithelial Cells Rare HIV 1&2 Antibody Screen Negative HIV P24 Antigen Negative labs pending aaox3 ambulating no acute distress Assessment: 09/25/17 11:15 withdrawal sx Plan: continue detox increase fluids felicita bandage for knee
[2017-09-25 11:18] LABS: ALBUMIN 3.6 g/dl (3.4-5.0); ANION GAP 8 (8-16); BLOOD UREA NITROGEN 15 mg/dL (7-18); CALCIUM 8.7 mg/dL (8.5-10.1); CHLORIDE 109 mmol/L (98-107); CO2 23 mmol/L (21-32); GLUCOSE,RANDOM 89 mg/dL (74-106); POTASSIUM 3.8 mmol/L (3.5-5.1); SODIUM 140 mmol/L (136-145)
[2017-09-25 11:21] LABS: ALK PHOS 80 U/L (45-117); BILIRUBIN,TOTAL 0.3 mg/dL (0.2-1.0); SGOT/AST 18 U/L (15-37); SGPT/ALT 24 U/L (12-78)
[2017-09-25] MEDS: METHYL SALICYLATE/MENTHOL OINT 30 GM TUBE TP SCH (11:30)
--- NOTE | 2017-09-25 12:37 | EKG ---
Test Reason : Blood Pressure : / mmHG Vent. Rate : 089 BPM Atrial Rate : 089 BPM P-R Int : 142 ms QRS Dur : 088 ms QT Int : 386 ms P-R-T Axes : 073 052 047 degrees QTc Int : 469 ms NORMAL SINUS RHYTHM NORMAL ECG WHEN COMPARED WITH ECG OF 03-AUG-2017 16:03, NO SIGNIFICANT CHANGE WAS FOUND Confirmed by ADONIS SALGUERO MD ([id number]) on 09/25/2017 12:36:47 PM Referred By: Confirmed By:ADONIS SALGUERO MD
[2017-09-25] MEDS: MONTELUKAST NA 10 MG TABLET PO SCH (22:14)
[2017-09-25] MEDS: LIDOCAINE PATCH REMOVAL MC SCH (22:14)
[2017-09-25] MEDS: risperiDONE 2 MG TABLET PO SCH (22:14)
[2017-09-25] MEDS: ATORVASTATIN CA 10 MG TABLET (FP) PO SCH (22:14)
[2017-09-25] MEDS: THIAMINE HCL 100 MG TABLET (FP) PO SCH (22:16)
[2017-09-26] MEDS: CYCLOBENZAPRINE HCL 10 MG TABLET (FP) PO SCH ×3 (05:57→22:14)
[2017-09-26] MEDS: chlordiazePOXIDE HCL 25 MG CAPSULE PO SCH ×2 (05:57→11:18)
[2017-09-26] MEDS: AMOXICILLIN 500 MG CAPSULE (FP) PO SCH ×3 (05:57→22:14)
[2017-09-26] MEDS: VITAMINS A AND D TOPICAL OINTMENT 60 GM TUBE TP SCH ×4 (06:06→23:05)
--- NOTE | 2017-09-26 10:46 | PN ---
S CIWA - CIWA Score Nausea/Vomitin-No Nausea/No Vomiting Muscle Tremors: 4-Moderate,w/Arms Extend Anxiety: 3 Agitation: 2 Paroxysmal Sweats: 3 Orientation: 0-Oriented Tacttile Disturbances: 0-None Auditory Disturbances: 0-None Visual Disturbances: 0-None Headache: 0-None Present CIWA-Ar Total Score: 12 BHS Progress Note (SOAP) Subjective: agitation sweats nasal congestion body aches Objective: 09/26/17 10:43 Vital Signs Temperature 97.8 F 09/26/17 07:41 Pulse Rate 83 09/26/17 07:41 Respiratory Rate 18 09/26/17 07:41 Blood Pressure 102/61 09/26/17 07:41 O2 Sat by Pulse Oximetry (%) Laboratory Tests 09/24/17 09/24/17 09/25/17 11:00 21:52 06:00 WBC 4.7 RBC 4.04 Hgb 13.1 Hct 40.3 MCV 99.8 H MCH 32.4 MCHC 32.5 RDW 14.8 Plt Count 346 D MPV 7.6 Sodium Potassium Chloride Carbon Dioxide Anion Gap BUN Creatinine Creat Clearance w eGFR Random Glucose Calcium Total Bilirubin AST ALT Alkaline Phosphatase Total Protein Albumin Urine Color Ltyellow Urine Appearance Clear Urine pH 5.0 Ur Specific [place] 1.015 Urine Protein Negative Urine Glucose (UA) Negative Urine Ketones Negative Urine Blood 1+ H Urine Nitrite Negative Urine Bilirubin Negative Urine Urobilinogen Negative Ur Leukocyte Esterase Negative Urine WBC (Auto) 2 Urine RBC (Auto) 5 Ur Epithelial Cells Rare RPR Titer HIV 1&2 Antibody Screen Negative HIV P24 Antigen Negative 09/25/17 09/25/17 06:00 06:00 WBC RBC Hgb Hct MCV MCH MCHC RDW Plt Count MPV Sodium 140 Potassium 3.8 Chloride 109 H Carbon Dioxide 23 Anion Gap 8 BUN 15 Creatinine 1.0 Creat Clearance w eGFR 57.15 Random Glucose 89 Calcium 8.7 Total Bilirubin 0.3 AST 18 ALT 24 Alkaline Phosphatase 80 Total Protein 7.0 Albumin 3.6 Urine Color Urine Appearance Urine pH Ur Specific [place] Urine Protein Urine Glucose (UA) Urine Ketones Urine Blood Urine Nitrite Urine Bilirubin Urine Urobilinogen Ur Leukocyte Esterase Urine WBC (Auto) Urine RBC (Auto) Ur Epithelial Cells RPR Titer Nonreactive HIV 1&2 Antibody Screen HIV P24 Antigen aaox3 ambulating no acute distress Assessment: 09/26/17 10:44 withdrawal sx Plan: continue detox increase fluids flonase nasal spray musinex
[2017-09-26] MEDS: NICOTINE 14 MG/24 HOURS TOPICAL PATCH TD SCH (11:17)
[2017-09-26] MEDS: HYDROCHLOROTHIAZIDE 12.5 MG CAPSULE (FP) PO SCH ×2 (11:17→12:09)
[2017-09-26] MEDS: ASPIRIN 81 MG CHEWABLE TABLETS PO SCH ×2 (11:17→12:10)
[2017-09-26] MEDS: METHYL SALICYLATE/MENTHOL OINT 30 GM TUBE TP SCH (11:17)
[2017-09-26] MEDS: amLODIPine BESYLATE 5 MG TABLET (FP) PO SCH ×2 (11:17→12:10)
[2017-09-26] MEDS: LIDOCAINE 5% TOPICAL PATCH TP SCH ×2 (11:17→12:10)
[2017-09-26] MEDS: PRENATAL VITAMINS W/ FOLIC ACID TABLET (FP) PO SCH ×2 (11:18→12:09)
[2017-09-26] MEDS: BUDESONIDE/FORMETEROL FUMARATE 160/4.5 mcg INHALER IH SCH ×3 (11:18→22:15)
[2017-09-26] MEDS: TOLNAFTATE 1% CREAM 15 GM TUBE TP SCH ×2 (11:18→22:17)
[2017-09-26] MEDS: PANTOPRAZOLE 40 MG TABLET (FP) PO SCH ×2 (11:18→12:10)
[2017-09-26] MEDS: FLUTICASONE PROP 0.05% 16 GM NASAL SPRAY NS SCH ×3 (11:18→22:18)
[2017-09-26] MEDS: NICOTINE POLACRILEX 4 MG GUM BUC PRN (12:14)
[2017-09-26] MEDS: chlordiazePOXIDE 5 MG CAPSULE PO SCH ×2 (17:36→22:15)
[2017-09-26] MEDS: risperiDONE 2 MG TABLET PO SCH (22:14)
[2017-09-26] MEDS: LIDOCAINE PATCH REMOVAL MC SCH (22:14)
[2017-09-26] MEDS: MONTELUKAST NA 10 MG TABLET PO SCH (22:14)
[2017-09-26] MEDS: ATORVASTATIN CA 10 MG TABLET (FP) PO SCH (22:14)
[2017-09-26] MEDS: guaiFENesin 600 MG TABLET.ER (FP) PO SCH (22:17)
[2017-09-26] MEDS: THIAMINE HCL 100 MG TABLET (FP) PO SCH (23:04)
[2017-09-27] MEDS: ACETAMINOPHEN 325 MG TABLET (FP) PO PRN ×2 (05:18→10:45)
[2017-09-27] MEDS: CYCLOBENZAPRINE HCL 10 MG TABLET (FP) PO SCH ×3 (05:19→22:32)
[2017-09-27] MEDS: chlordiazePOXIDE 5 MG CAPSULE PO SCH ×2 (05:49→10:40)
[2017-09-27] MEDS: AMOXICILLIN 500 MG CAPSULE (FP) PO SCH ×3 (05:49→22:32)
[2017-09-27] MEDS: VITAMINS A AND D TOPICAL OINTMENT 60 GM TUBE TP SCH ×3 (05:52→18:11)
[2017-09-27] MEDS: PRENATAL VITAMINS W/ FOLIC ACID TABLET (FP) PO SCH (10:38)
[2017-09-27] MEDS: amLODIPine BESYLATE 5 MG TABLET (FP) PO SCH (10:39)
[2017-09-27] MEDS: HYDROCHLOROTHIAZIDE 12.5 MG CAPSULE (FP) PO SCH (10:39)
[2017-09-27] MEDS: ASPIRIN 81 MG CHEWABLE TABLETS PO SCH (10:39)
[2017-09-27] MEDS: FLUTICASONE PROP 0.05% 16 GM NASAL SPRAY NS SCH ×2 (10:40→22:35)
[2017-09-27] MEDS: NICOTINE 14 MG/24 HOURS TOPICAL PATCH TD SCH (10:40)
[2017-09-27] MEDS: PANTOPRAZOLE 40 MG TABLET (FP) PO SCH (10:40)
[2017-09-27] MEDS: BUDESONIDE/FORMETEROL FUMARATE 160/4.5 mcg INHALER IH SCH ×2 (10:40→22:35)
[2017-09-27] MEDS: METHYL SALICYLATE/MENTHOL OINT 30 GM TUBE TP SCH (10:40)
[2017-09-27] MEDS: TOLNAFTATE 1% CREAM 15 GM TUBE TP SCH ×2 (10:41→22:34)
[2017-09-27] MEDS: guaiFENesin 600 MG TABLET.ER (FP) PO SCH ×2 (10:41→22:32)
[2017-09-27] MEDS: LIDOCAINE 5% TOPICAL PATCH TP SCH (10:44)
[2017-09-27] MEDS: NICOTINE POLACRILEX 4 MG GUM BUC PRN (10:47)
--- NOTE | 2017-09-27 14:17 | PN ---
S Progress Note (SOAP) Subjective: Body aches, interrupted sleep, chills, anxious Objective: 09/27/17 14:16 Last Vital Signs Temp Pulse Resp BP Pulse Ox 96.3 F L 115 H 20 106/69 09/27/17 10:32 09/27/17 10:32 09/27/17 10:32 09/27/17 10:32 Laboratory Last Values WBC 4.7 K/mm3 (4.0-10.0) 09/25/17 06:00 RBC 4.04 M/mm3 (3.60-5.2) 09/25/17 06:00 Hgb 13.1 GM/dL (10.7-15.3) 09/25/17 06:00 Hct 40.3 % (32.4-45.2) 09/25/17 06:00 MCV 99.8 fl (80-96) H 09/25/17 06:00 MCH 32.4 pg (25.7-33.7) 09/25/17 06:00 MCHC 32.5 g/dl (32.0-36.0) 09/25/17 06:00 RDW 14.8 % (11.6-15.6) 09/25/17 06:00 Plt Count 346 K/MM3 (134-434) D 09/25/17 06:00 MPV 7.6 fl (7.5-11.1) 09/25/17 06:00 Sodium 140 mmol/L (136-145) 09/25/17 06:00 Potassium 3.8 mmol/L (3.5-5.1) 09/25/17 06:00 Chloride 109 mmol/L (98-107) H 09/25/17 06:00 Carbon Dioxide 23 mmol/L (21-32) 09/25/17 06:00 Anion Gap 8 (8-16) 09/25/17 06:00 BUN 15 mg/dL (7-18) 09/25/17 06:00 Creatinine 1.0 mg/dL (0.55-1.02) 09/25/17 06:00 Creat Clearance w eGFR 57.15 (>60) 09/25/17 06:00 Random Glucose 89 mg/dL (74-106) 09/25/17 06:00 Calcium 8.7 mg/dL (8.5-10.1) 09/25/17 06:00 Total Bilirubin 0.3 mg/dL (0.2-1.0) 09/25/17 06:00 AST 18 U/L (15-37) 09/25/17 06:00 ALT 24 U/L (12-78) 09/25/17 06:00 Alkaline Phosphatase 80 U/L (45-117) 09/25/17 06:00 Total Protein 7.0 g/dl (6.4-8.2) 09/25/17 06:00 Albumin 3.6 g/dl (3.4-5.0) 09/25/17 06:00 Urine Color Ltyellow 09/24/17 21:52 Urine Appearance Clear 09/24/17 21:52 Urine pH 5.0 (5.0-8.0) 09/24/17 21:52 Ur Specific [place] 1.015 (1.001-1.035) 09/24/17 21:52 Urine Protein Negative (NEGATIVE) 09/24/17 21:52 Urine Glucose (UA) Negative (NEGATIVE) 09/24/17 21:52 Urine Ketones Negative (NEGATIVE) 09/24/17 21:52 Urine Blood 1+ (NEGATIVE) H 09/24/17 21:52 Urine Nitrite Negative (NEGATIVE) 09/24/17 21:52 Urine Bilirubin Negative (NEGATIVE) 09/24/17 21:52 Urine Urobilinogen Negative mg/dL (0.2-1.0) 09/24/17 21:52 Ur Leukocyte Esterase Negative (NEGATIVE) 09/24/17 21:52 Urine WBC (Auto) 2 /hpf (3-5) 09/24/17 21:52 Urine RBC (Auto) 5 /hpf (0-3) 09/24/17 21:52 Ur Epithelial Cells Rare /HPF (FEW) 09/24/17 21:52 RPR Titer Nonreactive (NONREACTIVE) 09/25/17 06:00 HIV 1&2 Antibody Screen Negative 09/24/17 11:00 HIV P24 Antigen Negative 09/24/17 11:00 Labs noted Assessment: 09/27/17 14:16 AOx3 Ambulating no distress withdrawals symptoms Plan: Continue Detox Increase fluids
[2017-09-27] MEDS ORDERED: LIDOCAINE 5% TOPICAL PATCH TP SCH (15:43)
[2017-09-27] MEDS: chlordiazePOXIDE HCL 10 MG CAPSULE PO SCH ×2 (18:11→22:32)
[2017-09-27] MEDS: THIAMINE HCL 100 MG TABLET (FP) PO SCH (22:32)
[2017-09-27] MEDS: risperiDONE 2 MG TABLET PO SCH (22:32)
[2017-09-27] MEDS: ATORVASTATIN CA 10 MG TABLET (FP) PO SCH (22:32)
[2017-09-27] MEDS: MONTELUKAST NA 10 MG TABLET PO SCH (22:32)
[2017-09-27] MEDS: LIDOCAINE PATCH REMOVAL MC SCH (22:35)
[2017-09-28] MEDS: CYCLOBENZAPRINE HCL 10 MG TABLET (FP) PO SCH ×2 (05:43→13:08)
[2017-09-28] MEDS: AMOXICILLIN 500 MG CAPSULE (FP) PO SCH ×2 (05:43→13:36)
[2017-09-28] MEDS: chlordiazePOXIDE HCL 10 MG CAPSULE PO SCH ×2 (05:43→10:27)
[2017-09-28] MEDS: ACETAMINOPHEN 325 MG TABLET (FP) PO PRN (05:45)
[2017-09-28] MEDS: VITAMINS A AND D TOPICAL OINTMENT 60 GM TUBE TP SCH ×3 (06:00→13:10)
--- NOTE | 2017-09-28 09:45 | DS ---
[facility] Detox Discharge Summary Admission Date: 09/24/17 Discharge Date: 09/28/17 - History Present History: Alcohol Dependence, Cocaine Dependence - Physical Exam Results Vital Signs: Vital Signs Temperature 98.1 F 09/28/17 06:27 Pulse Rate 99 H 09/28/17 06:27 Respiratory Rate 19 09/28/17 06:27 Blood Pressure 117/68 09/28/17 06:27 O2 Sat by Pulse Oximetry (%) - Treatment Hospital Course: Detox Protocol Followed, Detoxed Safely, Responded well, Discharged Condition Good, Rehab Referral Accepted - Medication Discharge Medications: Ambulatory Orders Fluticasone/Salmeterol [Advair 250-50 Diskus] 1 each IH BID #1 disk.w.dev Amlodipine Besylate [Norvasc -] 5 mg PO DAILY 05/31/17 Risperidone [Risperdal -] 2 mg PO HS #30 tablet 08/04/17 Albuterol Sulfate Inhaler - [Ventolin HFA Inhaler -] 2 inh IH Q4H PRN #1 inhaler 08/07/17 Aspirin [ASA -] 81 mg PO DAILY #30 mg 08/07/17 Atorvastatin Ca [Lipitor] 10 mg PO HS #30 mg 08/07/17 Budesonide/Formeterol Fumarate [SYMBICORT 160/4.5mcg -] 2 puff IH BID #1 inhaler 08/07/17 Hydrochlorothiazide [Hctz -] 12.5 mg PO DAILY #30 cap 08/07/17 Montelukast Na [Singulair -] 10 mg PO HS #30 mg 08/07/17 Pantoprazole Sodium [Protonix -] 40 mg PO DAILY #30 mg 08/07/17 Risperidone [Risperdal -] 2 mg PO HS #30 tablet 09/25/17 - Diagnosis (1) Alcohol dependence with uncomplicated withdrawal Current Visit: Yes Status: Acute (2) Asthma Current Visit: Yes Status: Chronic Qualifiers: Asthma severity: mild Asthma complication type: uncomplicated (3) GERD (gastroesophageal reflux disease) Current Visit: Yes Status: Chronic Qualifiers: Esophagitis presence: without esophagitis (4) Hypertension Current Visit: Yes Status: Chronic Qualifiers: Hypertension type: essential hypertension (5) Nicotine dependence Current Visit: Yes Status: Acute Qualifiers: Nicotine product type: cigarettes Substance use status: in withdrawal Qualified Code(s): F17.213 - Nicotine dependence, cigarettes, with withdrawal - AMA Did Patient Leave Against Medical Advice: No
[2017-09-28] MEDS: PANTOPRAZOLE 40 MG TABLET (FP) PO SCH (10:26)
[2017-09-28] MEDS: PRENATAL VITAMINS W/ FOLIC ACID TABLET (FP) PO SCH (10:26)
[2017-09-28] MEDS: FLUTICASONE PROP 0.05% 16 GM NASAL SPRAY NS SCH (10:27)
[2017-09-28] MEDS: HYDROCHLOROTHIAZIDE 12.5 MG CAPSULE (FP) PO SCH (10:27)
[2017-09-28] MEDS: ASPIRIN 81 MG CHEWABLE TABLETS PO SCH (10:27)
[2017-09-28] MEDS: METHYL SALICYLATE/MENTHOL OINT 30 GM TUBE TP SCH (10:27)
[2017-09-28] MEDS: amLODIPine BESYLATE 5 MG TABLET (FP) PO SCH (10:27)
[2017-09-28] MEDS: guaiFENesin 600 MG TABLET.ER (FP) PO SCH (10:27)
[2017-09-28 10:28] VITALS: BP 128/83; PULSE 124; TEMP 97.7
[2017-09-28] MEDS: TOLNAFTATE 1% CREAM 15 GM TUBE TP SCH (10:28)
[2017-09-28] MEDS: BUDESONIDE/FORMETEROL FUMARATE 160/4.5 mcg INHALER IH SCH (10:28)
[2017-09-28] MEDS: NICOTINE 14 MG/24 HOURS TOPICAL PATCH TD SCH (10:28)
== END 2017-09-28 13:46 | disposition other institution (70) | DRG 774 ==
LOC: YASAS 09:53 → Y6N 14:26
PROVIDERS: ADMIT Internal Medicine; ATTEND Internal Medicine
PROC: HZ2ZZZZ Detoxification Services for Substance Abuse Treatment (ICD-10-PCS; principal; 2017-09-24)
DX: F10.230 Alcohol dependence with withdrawal, uncomplicated (principal); F14.20 Cocaine dependence, uncomplicated; F17.210 Nicotine dependence, cigarettes, uncomplicated; F25.8 Other schizoaffective disorders; I10 Essential (primary) hypertension; K21.9 Gastro-esophageal reflux disease without esophagitis; J45.909 Unspecified asthma, uncomplicated; M19.90 Unspecified osteoarthritis, unspecified site; B35.3 Tinea pedis; R76.11 Nonspecific reaction to tuberculin skin test without active tuberculosis; E66.9 Obesity, unspecified; Z68.30 Body mass index [BMI] 30.0-30.9, adult; Z91.013 Allergy to seafood; Z91.018 Allergy to other foods
CPT/HCPCS: 36415; 80053; 81003; 81015; 85027; 86593; 87389; 93005; 93010

== ENCOUNTER 2017-09-28 14:11 | Inpatient (IN) | payer OTHER ==
[2017-09-28] MEDS ORDERED: LOPERAMIDE HCL 2 MG CAPSULE PO PRN (15:32)
[2017-09-28] MEDS ORDERED: P-EPHED 60MG/TRIPROLIDI 2.5MG TABLET PO PRN (15:32)
[2017-09-28] MEDS ORDERED: MAG HYDROX/AL HYDROX/SIMETH 30 ML UNIT-DOSE CUP PO PRN (15:32)
[2017-09-28] MEDS ORDERED: MENTHOL/PHENOL 1 EACH UD MM PRN (15:32)
[2017-09-28] MEDS ORDERED: MAGNESIUM CITRATE 300 ML BOTTLE PO PRN (15:32)
[2017-09-28] MEDS ORDERED: guaiFENesin/D-METHORPHAN HB 10 ML UNIT-DOSE CUPS PO PRN (15:32)
[2017-09-28] MEDS ORDERED: NICOTINE POLACRILEX 2 MG GUM BUC PRN (15:32)
--- NOTE | 2017-09-28 15:32 | HP ---
[facility] Rehab Assess/Revision - Admission History Admitted to Rehab from: [facility] [place] [facility] Date of Admission to Rehab: 09/28/17 - Vital signs Vital Signs: Vital Signs Period Temp Pulse Resp BP Sys/[place] Pulse Ox Last 24 Hr 98.2 F 111 19 123/87 - Findings Detox History & Physical reviewed: Yes Concur with findings: Yes Inpatient Rehab Admission - Initial Determination Are CD services needed?: Yes Free of communicable disease: Yes Not in need of hospitalization: Yes - Rehab Admission Criteria Previous failed treatment: Yes Poor recovery environment: Yes Comorbidities: Yes Lacks judgement: Yes Patient is meeting Inpatient Rehab admission criteria:: Yes
[2017-09-28] MEDS: ATORVASTATIN CA 10 MG TABLET (FP) PO SCH (21:37)
[2017-09-28] MEDS: ACETAMINOPHEN 325 MG TABLET (FP) PO PRN (21:37)
[2017-09-28] MEDS: risperiDONE 2 MG TABLET PO SCH (21:37)
[2017-09-28] MEDS: MONTELUKAST NA 10 MG TABLET PO SCH (21:37)
[2017-09-28] MEDS: BUDESONIDE/FORMETEROL FUMARATE 160/4.5 mcg INHALER IH SCH (21:39)
[2017-09-28] MEDS: THIAMINE HCL 100 MG TABLET (FP) PO SCH (21:39)
--- NOTE | 2017-09-29 09:21 | HP ---
Psychiatrist Admission - Data Date of interview: 09/29/17 Admission source: [address] [place] [address] detox Identifying data: This is the third admission to [facility] inpatient rehabilitation for this 57 yo single AA woman,residing alone,suppported by [facility]. Medical History: Significant for BA,Arthritis,GERD,HTN,Positive PPD. Psychiatric History: Patient has long history of Schizophrenia.She reports only one psychiatric hospitalization to [facility] due to psychotic episode many years back while in high school.She has history of noncompliance with psychiatric treament.Patient obtains Risperdal 3 mg po hs from local ER.She restarted her medications while in detox on [address] [place] [address]. Physical/Sexual Abuse/Trauma History: denies Vital Signs: Vital Signs - 24 hr 09/28/17 09/29/17 09/29/17 15:12 00:30 07:09 Temperature 98.2 F 98.0 F Pulse Rate 111 H 99 H Respiratory 19 18 18 Rate Blood Pressure 123/87 129/86 Allergies/Adverse Reactions: Allergies Allergy/AdvReac Type Severity Reaction Status Date / Time mushroom Allergy Severe Rash Verified 09/24/17 10:50 No Known Drug Allergies Allergy Verified 09/24/17 10:50 salmon Allergy Severe Difficulty Uncoded 09/24/17 10:50 Breathing Date of last physical exam: 09/24/17 Concur with the findings of this exam: Yes - Substance Abuse/Tx History Hx Alcohol Use: Yes Hx Substance Use: Yes Substance Use Type: Alcohol, Cocaine Hx Substance Use Treatment: Yes (completed this program in Jun 2017) Mental Status Exam - Mental Status Exam Alert and Oriented to: Time, Place, Person Cognitive Function: Grossly Intact Patient Appearance: Well Groomed Mood: Euthymic Affect: Mood Congruent, Labile Patient Behavior: Cooperative Speech Pattern: Clear Voice Loudness: Normal Thought Process: Goal Oriented Thought Disorder: Being Controlled Hallucinations: Denies Suicidal Ideation: Denies Homicidal Ideation: Denies Insight/Judgement: Fair Sleep: Fair Appetite: Good Muscle strength/Tone: Normal Gait/Station: Normal Psychiatric Findings - Problem List ([place] 1, 2,3) (1) Nicotine dependence Current Visit: Yes Status: Chronic Qualifiers: (2) Arthritis Current Visit: Yes Status: Chronic (3) Asthma Current Visit: Yes Status: Chronic (4) Cocaine dependence, uncomplicated Current Visit: Yes Status: Chronic (5) GERD (gastroesophageal reflux disease) Current Visit: Yes Status: Chronic Qualifiers: (6) Hypertension Current Visit: Yes Status: Chronic Qualifiers: (7) Positive PPD Current Visit: Yes Status: Inactive (8) Alcohol dependence Current Visit: Yes Status: Chronic (9) Schizoaffective disorder Current Visit: Yes Status: Chronic Qualifiers: (10) Tinea pedis Current Visit: Yes Status: Chronic Qualifiers: - Initial Treatment Plan Initial Treatment Plan: Continue current medications . Will monitor progress.
[2017-09-29] MEDS: NICOTINE 21 MG/24 HOURS TOPICAL PATCH TD SCH (09:50)
[2017-09-29] MEDS: ASPIRIN 81 MG CHEWABLE TABLETS PO SCH (09:51)
[2017-09-29] MEDS: BUDESONIDE/FORMETEROL FUMARATE 160/4.5 mcg INHALER IH SCH ×2 (09:52→21:29)
[2017-09-29] MEDS: PRENATAL VITAMINS W/ FOLIC ACID TABLET (FP) PO SCH (09:52)
[2017-09-29] MEDS: HYDROCHLOROTHIAZIDE 12.5 MG CAPSULE (FP) PO SCH (09:52)
[2017-09-29] MEDS: amLODIPine BESYLATE 5 MG TABLET (FP) PO SCH (09:52)
[2017-09-29] MEDS: PANTOPRAZOLE 40 MG TABLET (FP) PO SCH (09:52)
[2017-09-29] MEDS: COLLOIDAL OATMEAL 1 BAR EACH TP PRN (14:50)
[2017-09-29] MEDS: LIDOCAINE 5% TOPICAL PATCH TP SCH (14:50)
[2017-09-29] MEDS: AMMONIUM LACTATE 12% LOTION 225 GM BOTTLE TP PRN (14:51)
[2017-09-29] MEDS ORDERED: PT OWN MED DRAWER 7, Y5N ONE (14:56)
[2017-09-29] MEDS: ATORVASTATIN CA 10 MG TABLET (FP) PO SCH (21:28)
[2017-09-29] MEDS: MONTELUKAST NA 10 MG TABLET PO SCH (21:28)
[2017-09-29] MEDS: THIAMINE HCL 100 MG TABLET (FP) PO SCH (21:28)
[2017-09-29] MEDS: risperiDONE 2 MG TABLET PO SCH (21:28)
[2017-09-29] MEDS: LIDOCAINE PATCH REMOVAL MC SCH (21:29)
[2017-09-29] MEDS: METHYL SALICYLATE/MENTHOL OINT 30 GM TUBE TP SCH (21:29)
[2017-09-29] MEDS: ACETAMINOPHEN 325 MG TABLET (FP) PO PRN (21:30)
[2017-09-30] MEDS ORDERED: PT OWN MED DRAWER 7, Y5N ONE ×2 (06:16→08:38)
[2017-09-30] MEDS: ALBUTEROL SO4 18 GM HFA INHALER IH PRN (06:16)
[2017-09-30] MEDS: PRENATAL VITAMINS W/ FOLIC ACID TABLET (FP) PO SCH (10:11)
[2017-09-30] MEDS: LIDOCAINE 5% TOPICAL PATCH TP SCH (10:11)
[2017-09-30] MEDS: ASPIRIN 81 MG CHEWABLE TABLETS PO SCH (10:11)
[2017-09-30] MEDS: HYDROCHLOROTHIAZIDE 12.5 MG CAPSULE (FP) PO SCH (10:11)
[2017-09-30] MEDS: NICOTINE 21 MG/24 HOURS TOPICAL PATCH TD SCH (10:11)
[2017-09-30] MEDS: PANTOPRAZOLE 40 MG TABLET (FP) PO SCH (10:11)
[2017-09-30] MEDS: METHYL SALICYLATE/MENTHOL OINT 30 GM TUBE TP SCH ×2 (10:12→21:13)
[2017-09-30] MEDS: BUDESONIDE/FORMETEROL FUMARATE 160/4.5 mcg INHALER IH SCH ×2 (10:12→21:13)
[2017-09-30] MEDS: amLODIPine BESYLATE 5 MG TABLET (FP) PO SCH (10:12)
[2017-09-30] MEDS: ACETAMINOPHEN 325 MG TABLET (FP) PO PRN ×2 (10:15→21:15)
[2017-09-30] MEDS: risperiDONE 2 MG TABLET PO SCH (21:13)
[2017-09-30] MEDS: LIDOCAINE PATCH REMOVAL MC SCH (21:13)
[2017-09-30] MEDS: THIAMINE HCL 100 MG TABLET (FP) PO SCH (21:13)
[2017-09-30] MEDS: ATORVASTATIN CA 10 MG TABLET (FP) PO SCH (21:13)
[2017-09-30] MEDS: MONTELUKAST NA 10 MG TABLET PO SCH (21:13)
[2017-10-01] MEDS: MAGNESIUM HYDROX 2400MG/30ML ORAL SUSPENSION 30 ML CUP PO PRN (01:10)
[2017-10-01] MEDS: NICOTINE 21 MG/24 HOURS TOPICAL PATCH TD SCH (10:03)
[2017-10-01] MEDS: PANTOPRAZOLE 40 MG TABLET (FP) PO SCH (10:04)
[2017-10-01] MEDS: amLODIPine BESYLATE 5 MG TABLET (FP) PO SCH (10:04)
[2017-10-01] MEDS: PRENATAL VITAMINS W/ FOLIC ACID TABLET (FP) PO SCH (10:04)
[2017-10-01] MEDS: BUDESONIDE/FORMETEROL FUMARATE 160/4.5 mcg INHALER IH SCH ×2 (10:04→21:52)
[2017-10-01] MEDS: HYDROCHLOROTHIAZIDE 12.5 MG CAPSULE (FP) PO SCH (10:04)
[2017-10-01] MEDS: ASPIRIN 81 MG CHEWABLE TABLETS PO SCH (10:04)
[2017-10-01] MEDS: METHYL SALICYLATE/MENTHOL OINT 30 GM TUBE TP SCH ×2 (10:05→21:53)
[2017-10-01] MEDS: LIDOCAINE 5% TOPICAL PATCH TP SCH (10:06)
[2017-10-01] MEDS: COLLOIDAL OATMEAL 1 BAR EACH TP PRN (10:08)
[2017-10-01] MEDS: ACETAMINOPHEN 325 MG TABLET (FP) PO PRN ×2 (10:08→20:23)
[2017-10-01] MEDS: THIAMINE HCL 100 MG TABLET (FP) PO SCH (21:52)
[2017-10-01] MEDS: ATORVASTATIN CA 10 MG TABLET (FP) PO SCH (21:52)
[2017-10-01] MEDS: MONTELUKAST NA 10 MG TABLET PO SCH (21:52)
[2017-10-01] MEDS: risperiDONE 2 MG TABLET PO SCH (21:52)
[2017-10-01] MEDS: LIDOCAINE PATCH REMOVAL MC SCH (21:53)
[2017-10-01] MEDS ORDERED: BENZOCAINE 20 % GEL 9 GM TUBE MM PRN (22:58)
[2017-10-02] MEDS: ACETAMINOPHEN 325 MG TABLET (FP) PO PRN ×2 (06:20→21:23)
[2017-10-02] MEDS: NICOTINE 21 MG/24 HOURS TOPICAL PATCH TD SCH (09:58)
[2017-10-02] MEDS: BUDESONIDE/FORMETEROL FUMARATE 160/4.5 mcg INHALER IH SCH ×2 (09:58→21:26)
[2017-10-02] MEDS: METHYL SALICYLATE/MENTHOL OINT 30 GM TUBE TP SCH ×2 (09:59→21:28)
[2017-10-02] MEDS: ASPIRIN 81 MG CHEWABLE TABLETS PO SCH (10:00)
[2017-10-02] MEDS: PANTOPRAZOLE 40 MG TABLET (FP) PO SCH (10:00)
[2017-10-02] MEDS: HYDROCHLOROTHIAZIDE 12.5 MG CAPSULE (FP) PO SCH (10:00)
[2017-10-02] MEDS: PRENATAL VITAMINS W/ FOLIC ACID TABLET (FP) PO SCH (10:00)
[2017-10-02] MEDS: amLODIPine BESYLATE 5 MG TABLET (FP) PO SCH (10:00)
[2017-10-02] MEDS: LIDOCAINE 5% TOPICAL PATCH TP SCH (10:01)
[2017-10-02] MEDS: NICOTINE POLACRILEX 4 MG GUM BUC PRN (10:02)
[2017-10-02] MEDS: VITAMINS A AND D TOPICAL OINTMENT 60 GM TUBE TP SCH (18:20)
[2017-10-02] MEDS: THIAMINE HCL 100 MG TABLET (FP) PO SCH (21:22)
[2017-10-02] MEDS: risperiDONE 2 MG TABLET PO SCH (21:22)
[2017-10-02] MEDS: MONTELUKAST NA 10 MG TABLET PO SCH (21:22)
[2017-10-02] MEDS: ATORVASTATIN CA 10 MG TABLET (FP) PO SCH (21:22)
[2017-10-02] MEDS: CYCLOBENZAPRINE HCL 5 MG TABLET PO PRN (21:23)
[2017-10-02] MEDS ORDERED: PT OWN MED DRAWER 7, Y5N ONE (21:27)
[2017-10-02] MEDS: SODIUM CHLORIDE NASAL SPRAY 44 ML BOTTLE NS PRN (21:27)
[2017-10-02] MEDS: LIDOCAINE PATCH REMOVAL MC SCH (21:28)
[2017-10-03] MEDS: VITAMINS A AND D TOPICAL OINTMENT 60 GM TUBE TP SCH ×4 (00:58→18:25)
[2017-10-03] MEDS ORDERED: PT OWN MED DRAWER 7, Y5N ONE (05:55)
[2017-10-03] MEDS: CYCLOBENZAPRINE HCL 5 MG TABLET PO PRN ×2 (07:01→15:04)
[2017-10-03] MEDS: IBUPROFEN 400 MG TABLET (FP) PO PRN (07:01)
[2017-10-03] MEDS: ASPIRIN 81 MG CHEWABLE TABLETS PO SCH (10:14)
[2017-10-03] MEDS: NICOTINE 21 MG/24 HOURS TOPICAL PATCH TD SCH (10:14)
[2017-10-03] MEDS: PANTOPRAZOLE 40 MG TABLET (FP) PO SCH (10:14)
[2017-10-03] MEDS: PRENATAL VITAMINS W/ FOLIC ACID TABLET (FP) PO SCH (10:14)
[2017-10-03] MEDS: BUDESONIDE/FORMETEROL FUMARATE 160/4.5 mcg INHALER IH SCH ×2 (10:14→21:22)
[2017-10-03] MEDS: amLODIPine BESYLATE 5 MG TABLET (FP) PO SCH (10:14)
[2017-10-03] MEDS: HYDROCHLOROTHIAZIDE 12.5 MG CAPSULE (FP) PO SCH (10:14)
[2017-10-03] MEDS: LIDOCAINE 5% TOPICAL PATCH TP SCH (10:14)
[2017-10-03] MEDS: METHYL SALICYLATE/MENTHOL OINT 30 GM TUBE TP SCH ×2 (10:15→21:22)
[2017-10-03] MEDS: ACETAMINOPHEN 325 MG TABLET (FP) PO PRN ×2 (15:05→21:23)
--- NOTE | 2017-10-03 15:49 | PN ---
[facility]HS Progress Note Note: mouth in poor hygienic condition, multiple broken teeth with roots still present & swelling of the gum. Amoxicillin 500mg tid
[2017-10-03] MEDS: AMOXICILLIN 500 MG CAPSULE (FP) PO SCH ×2 (17:17→21:20)
[2017-10-03] MEDS: THIAMINE HCL 100 MG TABLET (FP) PO SCH (21:20)
[2017-10-03] MEDS: risperiDONE 2 MG TABLET PO SCH (21:20)
[2017-10-03] MEDS: MONTELUKAST NA 10 MG TABLET PO SCH (21:20)
[2017-10-03] MEDS: ATORVASTATIN CA 10 MG TABLET (FP) PO SCH (21:20)
[2017-10-03] MEDS: LIDOCAINE PATCH REMOVAL MC SCH (21:21)
[2017-10-04] MEDS: VITAMINS A AND D TOPICAL OINTMENT 60 GM TUBE TP SCH ×5 (00:20→23:05)
[2017-10-04] MEDS: AMOXICILLIN 500 MG CAPSULE (FP) PO SCH ×3 (06:34→21:40)
[2017-10-04] MEDS: CYCLOBENZAPRINE HCL 5 MG TABLET PO PRN ×2 (06:35→21:39)
[2017-10-04] MEDS: ACETAMINOPHEN 325 MG TABLET (FP) PO PRN ×2 (06:36→21:38)
[2017-10-04] MEDS ORDERED: PT OWN MED DRAWER 7, Y5N ONE ×2 (08:16→19:34)
[2017-10-04] MEDS: ASPIRIN 81 MG CHEWABLE TABLETS PO SCH (10:08)
[2017-10-04] MEDS: LIDOCAINE 5% TOPICAL PATCH TP SCH (10:08)
[2017-10-04] MEDS: METHYL SALICYLATE/MENTHOL OINT 30 GM TUBE TP SCH ×2 (10:08→21:40)
[2017-10-04] MEDS: HYDROCHLOROTHIAZIDE 12.5 MG CAPSULE (FP) PO SCH (10:08)
[2017-10-04] MEDS: NICOTINE 21 MG/24 HOURS TOPICAL PATCH TD SCH (10:09)
[2017-10-04] MEDS: BUDESONIDE/FORMETEROL FUMARATE 160/4.5 mcg INHALER IH SCH ×2 (10:10→21:38)
[2017-10-04] MEDS: amLODIPine BESYLATE 5 MG TABLET (FP) PO SCH (10:10)
[2017-10-04] MEDS: PANTOPRAZOLE 40 MG TABLET (FP) PO SCH (10:10)
[2017-10-04] MEDS: PRENATAL VITAMINS W/ FOLIC ACID TABLET (FP) PO SCH (10:10)
[2017-10-04] MEDS: NICOTINE POLACRILEX 4 MG GUM BUC PRN (10:11)
[2017-10-04] MEDS: AMMONIUM LACTATE 12% LOTION 225 GM BOTTLE TP PRN (10:11)
[2017-10-04] MEDS: MONTELUKAST NA 10 MG TABLET PO SCH (21:39)
[2017-10-04] MEDS: THIAMINE HCL 100 MG TABLET (FP) PO SCH (21:39)
[2017-10-04] MEDS: LIDOCAINE PATCH REMOVAL MC SCH (21:40)
[2017-10-04] MEDS: ATORVASTATIN CA 10 MG TABLET (FP) PO SCH (21:40)
[2017-10-04] MEDS: risperiDONE 2 MG TABLET PO SCH (21:40)
[2017-10-04] MEDS: MAGNESIUM HYDROX 2400MG/30ML ORAL SUSPENSION 30 ML CUP PO PRN (21:41)
[2017-10-04] MEDS ORDERED: hydrOXYzine PAMOATE 50 MG CAPSULE (FP) PO PRN (22:38)
[2017-10-04] MEDS: diphenhydrAMINE HCL 25 MG CAPSULE (FP) PO PRN (23:04)
[2017-10-05] MEDS: ACETAMINOPHEN 325 MG TABLET (FP) PO PRN ×2 (03:54→10:12)
[2017-10-05] MEDS: AMOXICILLIN 500 MG CAPSULE (FP) PO SCH ×3 (06:23→21:19)
[2017-10-05] MEDS: CYCLOBENZAPRINE HCL 5 MG TABLET PO PRN ×2 (06:24→21:19)
[2017-10-05] MEDS: NICOTINE POLACRILEX 4 MG GUM BUC PRN ×2 (06:25→10:08)
[2017-10-05] MEDS: IBUPROFEN 400 MG TABLET (FP) PO PRN ×2 (06:26→21:21)
[2017-10-05] MEDS: VITAMINS A AND D TOPICAL OINTMENT 60 GM TUBE TP SCH ×4 (06:52→23:37)
[2017-10-05] MEDS: COLLOIDAL OATMEAL 1 BAR EACH TP PRN (10:06)
[2017-10-05] MEDS: PANTOPRAZOLE 40 MG TABLET (FP) PO SCH (10:07)
[2017-10-05] MEDS: HYDROCHLOROTHIAZIDE 12.5 MG CAPSULE (FP) PO SCH (10:07)
[2017-10-05] MEDS: BUDESONIDE/FORMETEROL FUMARATE 160/4.5 mcg INHALER IH SCH ×2 (10:07→21:21)
[2017-10-05] MEDS: ASPIRIN 81 MG CHEWABLE TABLETS PO SCH (10:07)
[2017-10-05] MEDS: PRENATAL VITAMINS W/ FOLIC ACID TABLET (FP) PO SCH (10:07)
[2017-10-05] MEDS: amLODIPine BESYLATE 5 MG TABLET (FP) PO SCH (10:07)
[2017-10-05] MEDS: SODIUM CHLORIDE NASAL SPRAY 44 ML BOTTLE NS PRN ×2 (10:08→21:22)
[2017-10-05] MEDS: LIDOCAINE 5% TOPICAL PATCH TP SCH (10:09)
[2017-10-05] MEDS: NICOTINE 21 MG/24 HOURS TOPICAL PATCH TD SCH (10:09)
[2017-10-05] MEDS: METHYL SALICYLATE/MENTHOL OINT 30 GM TUBE TP SCH ×2 (10:09→21:20)
[2017-10-05] MEDS: THIAMINE HCL 100 MG TABLET (FP) PO SCH (21:19)
[2017-10-05] MEDS: ATORVASTATIN CA 10 MG TABLET (FP) PO SCH (21:19)
[2017-10-05] MEDS: MONTELUKAST NA 10 MG TABLET PO SCH (21:19)
[2017-10-05] MEDS: LIDOCAINE PATCH REMOVAL MC SCH (21:20)
[2017-10-05] MEDS: risperiDONE 2 MG TABLET PO SCH (21:21)
[2017-10-05] MEDS: diphenhydrAMINE HCL 25 MG CAPSULE (FP) PO PRN (23:36)
[2017-10-06] MEDS: IBUPROFEN 400 MG TABLET (FP) PO PRN (06:28)
[2017-10-06] MEDS: CYCLOBENZAPRINE HCL 5 MG TABLET PO PRN (06:28)
[2017-10-06] MEDS: AMOXICILLIN 500 MG CAPSULE (FP) PO SCH ×3 (06:28→21:21)
[2017-10-06] MEDS: VITAMINS A AND D TOPICAL OINTMENT 60 GM TUBE TP SCH ×3 (06:29→17:17)
[2017-10-06] MEDS: NICOTINE 21 MG/24 HOURS TOPICAL PATCH TD SCH (10:11)
[2017-10-06] MEDS: HYDROCHLOROTHIAZIDE 12.5 MG CAPSULE (FP) PO SCH (10:11)
[2017-10-06] MEDS: amLODIPine BESYLATE 5 MG TABLET (FP) PO SCH (10:11)
[2017-10-06] MEDS: BUDESONIDE/FORMETEROL FUMARATE 160/4.5 mcg INHALER IH SCH ×2 (10:11→21:24)
[2017-10-06] MEDS: LIDOCAINE 5% TOPICAL PATCH TP SCH (10:11)
[2017-10-06] MEDS: PRENATAL VITAMINS W/ FOLIC ACID TABLET (FP) PO SCH (10:11)
[2017-10-06] MEDS: PANTOPRAZOLE 40 MG TABLET (FP) PO SCH (10:11)
[2017-10-06] MEDS: METHYL SALICYLATE/MENTHOL OINT 30 GM TUBE TP SCH ×2 (10:12→21:27)
[2017-10-06] MEDS: ASPIRIN 81 MG CHEWABLE TABLETS PO SCH (10:12)
[2017-10-06] MEDS ORDERED: PANTOPRAZOLE 40 MG TABLET (FP) PO SCH (14:30)
--- NOTE | 2017-10-06 14:31 | PN ---
S Progress Note (SOAP) Subjective: c/o dental pain requesting mouhwash and pain meds on antibioitics which are helping Objective: 10/06/17 14:30 Vital Signs - 8 hr 10/06/17 10/06/17 07:22 10:00 Temperature 97.7 F Pulse Rate 98 H 108 H Respiratory 18 Rate Blood Pressure 124/87 121/77 labs reviewed Assessment: 10/06/17 14:30 dental caries - start preidex andmagic mouthwash, naprosyn atc w protonix.
[2017-10-06] MEDS: MAGNESIUM HYDROX 2400MG/30ML ORAL SUSPENSION 30 ML CUP PO PRN (17:16)
[2017-10-06] MEDS: MAG HYDROX/ALH/SMC/DPHA/LIDO 240 ML MOUTHWASH MM SCH (17:18)
[2017-10-06] MEDS: THIAMINE HCL 100 MG TABLET (FP) PO SCH (21:21)
[2017-10-06] MEDS: ATORVASTATIN CA 10 MG TABLET (FP) PO SCH (21:21)
[2017-10-06] MEDS: MONTELUKAST NA 10 MG TABLET PO SCH (21:21)
[2017-10-06] MEDS: LIDOCAINE PATCH REMOVAL MC SCH (21:22)
[2017-10-06] MEDS: diphenhydrAMINE HCL 25 MG CAPSULE (FP) PO PRN (21:23)
[2017-10-06] MEDS: ACETAMINOPHEN 325 MG TABLET (FP) PO PRN (21:24)
[2017-10-06] MEDS: risperiDONE 2 MG TABLET PO SCH (21:25)
[2017-10-06] MEDS: CHLORHEXIDINE GLUCONATE 0.12% 15ML CUP MM SCH (21:25)
[2017-10-06] MEDS: NAPROXEN 500 MG TABLET (FP) PO SCH (21:27)
[2017-10-07] MEDS: VITAMINS A AND D TOPICAL OINTMENT 60 GM TUBE TP SCH ×4 (00:15→18:25)
[2017-10-07] MEDS: MAG HYDROX/ALH/SMC/DPHA/LIDO 240 ML MOUTHWASH MM SCH ×4 (00:15→18:25)
[2017-10-07] MEDS ORDERED: PT OWN MED DRAWER 7, Y5N ONE ×3 (05:51→12:45)
[2017-10-07] MEDS: ACETAMINOPHEN 325 MG TABLET (FP) PO PRN ×3 (06:35→19:04)
[2017-10-07] MEDS: AMOXICILLIN 500 MG CAPSULE (FP) PO SCH ×3 (06:35→21:26)
[2017-10-07] MEDS: CYCLOBENZAPRINE HCL 5 MG TABLET PO PRN ×2 (06:35→14:01)
[2017-10-07] MEDS: LIDOCAINE 5% TOPICAL PATCH TP SCH (10:12)
[2017-10-07] MEDS: CHLORHEXIDINE GLUCONATE 0.12% 15ML CUP MM SCH ×2 (10:13→21:27)
[2017-10-07] MEDS: NICOTINE 21 MG/24 HOURS TOPICAL PATCH TD SCH (10:13)
[2017-10-07] MEDS: PRENATAL VITAMINS W/ FOLIC ACID TABLET (FP) PO SCH (10:14)
[2017-10-07] MEDS: BUDESONIDE/FORMETEROL FUMARATE 160/4.5 mcg INHALER IH SCH ×2 (10:14→21:29)
[2017-10-07] MEDS: ASPIRIN 81 MG CHEWABLE TABLETS PO SCH (10:14)
[2017-10-07] MEDS: METHYL SALICYLATE/MENTHOL OINT 30 GM TUBE TP SCH ×2 (10:15→21:26)
[2017-10-07] MEDS: HYDROCHLOROTHIAZIDE 12.5 MG CAPSULE (FP) PO SCH (10:15)
[2017-10-07] MEDS: NAPROXEN 500 MG TABLET (FP) PO SCH ×2 (10:15→21:25)
[2017-10-07] MEDS: amLODIPine BESYLATE 5 MG TABLET (FP) PO SCH (10:15)
[2017-10-07] MEDS: PANTOPRAZOLE 40 MG TABLET (FP) PO SCH (10:16)
[2017-10-07] MEDS: ALBUTEROL SO4 18 GM HFA INHALER IH PRN (14:02)
[2017-10-07] MEDS: NICOTINE POLACRILEX 4 MG GUM BUC PRN (14:02)
[2017-10-07] MEDS ORDERED: risperiDONE 1 MG TABLET (FP) PO PRN ×2 (14:13→15:38)
[2017-10-07] MEDS: ATORVASTATIN CA 10 MG TABLET (FP) PO SCH (21:25)
[2017-10-07] MEDS: THIAMINE HCL 100 MG TABLET (FP) PO SCH (21:25)
[2017-10-07] MEDS: LIDOCAINE PATCH REMOVAL MC SCH (21:25)
[2017-10-07] MEDS: MONTELUKAST NA 10 MG TABLET PO SCH (21:25)
[2017-10-07] MEDS: diphenhydrAMINE HCL 25 MG CAPSULE (FP) PO PRN (21:28)
[2017-10-07] MEDS ORDERED: risperiDONE 1 MG TABLET (FP) PO SCH (22:00)
[2017-10-08] MEDS: MAG HYDROX/ALH/SMC/DPHA/LIDO 240 ML MOUTHWASH MM SCH ×3 (00:34→06:39)
[2017-10-08] MEDS: VITAMINS A AND D TOPICAL OINTMENT 60 GM TUBE TP SCH ×2 (00:34→06:38)
[2017-10-08] MEDS: ACETAMINOPHEN 325 MG TABLET (FP) PO PRN (06:36)
[2017-10-08] MEDS: CYCLOBENZAPRINE HCL 5 MG TABLET PO PRN (06:36)
[2017-10-08] MEDS: AMOXICILLIN 500 MG CAPSULE (FP) PO SCH (06:36)
[2017-10-08 07:29] VITALS: TEMP 97.8
--- NOTE | 2017-10-08 09:04 | PN ---
Psychiatric Progress Note Vital Signs: Vital Signs Period Temp Pulse Resp BP Sys/[place] Pulse Ox Last 24 Hr 97.8 F 92 18-18 134/90 Date of Session: 10/08/17 Chief Complaint:: Discharge visit HPI: Patient addressed cocaine and alcohol dependence comorbid with Schizoaffective disorder. ROS: HTN,GERD,BA,Tinea pedis,Arthritis. Current Medications: Active Medications Generic Name Dose Route Start Last Admin Trade Name Freq PRN Reason Stop Dose Admin Acetaminophen 650 mg 09/28/17 15:32 10/08/17 06:36 Tylenol - PO 650 mg Q4H PRN Administration FEVER Al Hydroxide/Mg Hydroxide 30 ml 09/28/17 15:32 Mylanta Oral Suspension - PO Q6H PRN DYSPEPSIA Albuterol Sulfate 2 puff 09/28/17 15:33 10/07/17 14:02 Ventolin Hfa Inhaler - IH 2 puff Q4H PRN Administration ASTHMA Amlodipine Besylate 5 mg 09/29/17 10:00 10/07/17 10:15 Norvasc - PO 5 mg DAILY HUBER Administration Amoxicillin 500 mg 10/03/17 16:00 10/08/17 06:36 Amoxicillin - PO 500 mg TID HUBER Administration Aspirin 81 mg 09/29/17 10:00 10/07/17 10:14 Asa - PO 81 mg DAILY HUBER Administration Atorvastatin Calcium 10 mg 09/28/17 22:00 10/07/17 21:25 Lipitor - PO 10 mg HS HUBER Administration Benzocaine 1 applic 10/01/17 22:58 Anbesol - MM Q2H PRN ORAL PAIN/MOUTH SORES Budesonide/Formoterol Fumarate 2 puff 09/28/17 22:00 10/07/17 21:29 Symbicort 160/4.5mcg - IH 2 inhaler BID HUBER Administration Chlorhexidine Gluconate 15 ml 10/06/17 22:00 10/07/17 21:27 Peridex - MM 15 ml BID HUBER Administration Colloidal Oatmeal 1 applic 09/29/17 14:05 10/05/17 10:06 Aveeno Soap - TP 1 bar DAILY PRN Administration HYGEINE Cyclobenzaprine HCl 5 mg 10/02/17 09:21 10/08/17 06:36 Cyclobenzaprine Hcl PO 5 mg TID PRN Administration MUSCLE SPASMS Diphenhydramine HCl 50 mg 10/04/17 22:57 10/07/17 21:28 Benadryl - PO 50 mg HS PRN Administration INSOMNIA Eucalyptus/Menthol/Phenol/Sorbitol 1 each 09/28/17 15:32 Cepastat Lozenge - MM Q4H PRN SORE THROAT Guaifenesin 10 ml 09/28/17 15:32 Robitussin Dm - PO Q6H PRN COUGH Hydrochlorothiazide 12.5 mg 09/29/17 10:00 10/07/17 10:15 Hctz - PO 12.5 mg DAILY HUBER Administration Lactic Acid 1 applic 09/29/17 14:08 10/04/17 10:11 Lac-Hydrin 12 TP 1 applic BID PRN Administration FOR ITCHING Lidocaine 1 patch 09/29/17 14:15 10/07/17 10:12 Lidoderm Patch - TP 1 patch DAILY HUBER Administration Lidocaine/Aluminum/Magnesium/Simeth 5 ml 10/06/17 18:00 10/08/17 06:39 Magic Mouthwash *[facility] Formula* - MM 5 ml Q6HPO HUBER Administration Loperamide HCl 4 mg 09/28/17 15:32 Imodium - PO Q6H PRN DIARRHEA Magnesium Citrate 300 ml 09/28/17 15:32 10/05/17 10:12 Citroma - PO 300 ml Q48H PRN Administration CONSTIPATION Magnesium Hydroxide 30 ml 09/28/17 15:32 10/06/17 17:16 Milk Of Magnesia - PO 30 ml DAILY PRN Administration CONSTIPATION Methyl Salicylate 1 applic 09/29/17 22:00 10/07/17 21:26 [place] - TP 1 applic BID HUBER Administration Miscellaneous 1 each 09/29/17 22:00 10/07/17 21:25 Lidoderm Patch Removal MC 1 each DAILY@2200 HUBER Administration Montelukast Sodium 10 mg 09/28/17 22:00 10/07/17 21:25 Singulair - PO 10 mg HS HUBER Administration Naproxen 500 mg 10/06/17 22:00 10/07/17 21:25 Naprosyn - PO 500 mg BID HUBER Administration Nicotine 21 mg 09/29/17 10:00 10/07/17 10:13 Nicoderm Patch - TD 21 mg DAILY HUBER Administration Nicotine Polacrilex 4 mg 09/29/17 14:43 10/07/17 14:02 Nicorette Gum - BUC 4 mg Q2H PRN Administration NICOTINE REPLACEMENT RX Pantoprazole Sodium 40 mg 09/29/17 10:00 10/07/17 10:16 Protonix - PO 40 mg DAILY HUBER Administration Multivit/Folic Acid/Iron 1 tab 09/29/17 10:00 10/07/17 10:14 Vitamins ([facility]) - PO 1 tab DAILY HUBER Administration Pseudoephedrine/Triprolidine 1 combo 09/28/17 15:32 Actifed - PO TID PRN NASAL CONGESTION Risperidone 1 mg 10/07/17 22:00 10/07/17 21:28 Risperdal - PO 1 mg HS HUBER Administration Risperidone 1 mg 10/07/17 15:38 Risperdal - PO DAILY PRN AGITATION Sodium Chloride 2 spray 10/02/17 13:15 10/05/17 21:22 [place] Nasal [place] - NS 2 sprays BID PRN Administration NASAL CONGESTION Thiamine HCl 100 mg 09/28/17 22:00 10/07/17 21:25 Vitamin B1 - PO 100 mg HS HUBER Administration Vitamin A/Vitamin D 1 applic 10/02/17 18:00 10/08/17 06:38 Vitamin A & D Top Oint - TP Not Given Q6HPO HUBER Current Side Effect: No Lab tests ordered: No Lab tests reviewed: Yes Provider note:: Patient completed this program today.She has met her treatment goals partially and will continue to address her issues on outpatient basis at [facility] Day rehabilitiation Program at [facility]. Patient contuinues to find that current medications :risperidone 1 mg po hs and 1 mg po daily as needed help to cope with her episodes of agitation and anxity,mood instability.Scripts provided for 30 days supply. Supportive therapy provided focusing on relapse prevention,coping skills,support utilization has been discussed with the patient as well as other ways to maintain recovery. patient is stable for discharge today. Total face to face time:: 25 Mental Status Exam - Mental Status Exam Alert and Oriented to: Time, Place, Person Cognitive Function: Grossly Intact Patient Appearance: Unkempt Mood: Euthymic Affect: Appropriate, Mood Congruent Patient Behavior: Cooperative Speech Pattern: Clear Voice Loudness: Normal Thought Process: Goal Oriented Thought Disorder: Being Controlled Hallucinations: Denies Suicidal Ideation: Denies Homicidal Ideation: Denies Insight/Judgement: Fair Sleep: Fair Appetite: Good Muscle strength/Tone: Normal Gait/Station: Normal Psychiatric Treatment Plan - Problem List (1) Nicotine dependence Current Visit: Yes Qualifiers: (2) Arthritis Current Visit: Yes (3) Asthma Current Visit: Yes (4) Cocaine dependence, uncomplicated Current Visit: Yes (5) GERD (gastroesophageal reflux disease) Current Visit: Yes Qualifiers: (6) Hypertension Current Visit: Yes Qualifiers: (7) Positive PPD Current Visit: Yes (8) Alcohol dependence Current Visit: Yes (9) Schizoaffective disorder Current Visit: Yes Qualifiers: (10) Tinea pedis Current Visit: Yes Qualifiers:
[2017-10-08] MEDS: ASPIRIN 81 MG CHEWABLE TABLETS PO SCH (09:22)
[2017-10-08] MEDS: METHYL SALICYLATE/MENTHOL OINT 30 GM TUBE TP SCH (09:22)
[2017-10-08] MEDS: HYDROCHLOROTHIAZIDE 12.5 MG CAPSULE (FP) PO SCH (09:22)
[2017-10-08] MEDS: LIDOCAINE 5% TOPICAL PATCH TP SCH (09:23)
[2017-10-08] MEDS: NICOTINE 21 MG/24 HOURS TOPICAL PATCH TD SCH (09:23)
[2017-10-08] MEDS: NAPROXEN 500 MG TABLET (FP) PO SCH (09:23)
[2017-10-08] MEDS: BUDESONIDE/FORMETEROL FUMARATE 160/4.5 mcg INHALER IH SCH (09:24)
[2017-10-08] MEDS: PANTOPRAZOLE 40 MG TABLET (FP) PO SCH (09:24)
[2017-10-08] MEDS: PRENATAL VITAMINS W/ FOLIC ACID TABLET (FP) PO SCH (09:24)
[2017-10-08] MEDS: CHLORHEXIDINE GLUCONATE 0.12% 15ML CUP MM SCH (09:24)
[2017-10-08] MEDS: amLODIPine BESYLATE 5 MG TABLET (FP) PO SCH (09:24)
[2017-10-08 09:27] VITALS: BP 122/76; PULSE 116
== END 2017-10-08 10:07 | disposition home or self-care (01) | DRG 772 ==
LOC: Y3E 14:11
PROVIDERS: ADMIT Psychiatry & Neurology Psychiatry; ATTEND Psychiatry & Neurology Psychiatry
PROC: HZ42ZZZ Group Counseling for Substance Abuse Treatment, Cognitive-Behavioral (ICD-10-PCS; principal; 2017-09-28)
DX: F10.20 Alcohol dependence, uncomplicated (principal); F14.20 Cocaine dependence, uncomplicated; F17.210 Nicotine dependence, cigarettes, uncomplicated; F25.9 Schizoaffective disorder, unspecified; I10 Essential (primary) hypertension; J45.909 Unspecified asthma, uncomplicated; K21.9 Gastro-esophageal reflux disease without esophagitis; M19.90 Unspecified osteoarthritis, unspecified site; R76.11 Nonspecific reaction to tuberculin skin test without active tuberculosis; B35.3 Tinea pedis; K02.9 Dental caries, unspecified
CPT/HCPCS: J2794

== ENCOUNTER 2017-11-10 11:23 | Inpatient (IN) | payer OTHER ==
[2017-11-10 13:12] VITALS: BMI 33.3
--- NOTE | 2017-11-10 15:57 | HP ---
CIWA Score - CIWA Score Nausea/Vomitin Muscle Tremors: 2 Anxiety: 4-Mod. Anxious/Guarded Agitation: 4-Moderately Restless Paroxysmal Sweats: 1-Minimal Palms Moist Orientation: 0-Oriented Tacttile Disturbances: 1-Very Mild Itch/Numbness Auditory Disturbances: 0-None Visual Disturbances: 0-None Headache: 0-None Present CIWA-Ar Total Score: 14 Admission ROS [facility] - HPI Chief Complaint: "I need detox from alcohol and crack cocaine" Allergies/Adverse Reactions: Allergies Allergy/AdvReac Type Severity Reaction Status Date / Time mushroom Allergy Severe Rash Verified 09/24/17 10:50 No Known Drug Allergies Allergy Verified 09/24/17 10:50 salmon Allergy Severe Difficulty Uncoded 09/24/17 10:50 Breathing History of Present Illness: 57 y/o female with a long history of alcohol intoxication "I have been drinking since I was 10", presents here today requesting detox from alcohol and crack. Pt endorses 3 years sobriety in the 80's during which I was attending AA meetings and "stuff". has not had a remarkable sober period since then. Pt has attended detox and Rehab here at [facility], last known visit Sep 2017, states " I don't want to do rehab now. Hx of HTN and allergy to [place].. Exam Limitations: No Limitations - Ebola screening Have you traveled outside of the country in the last 21 days: No Have you had contact with anyone from an Ebola affected area: No Have you been sick,other than usual withdrawal symptoms: No Do you have a fever: No - Review of Systems Constitutional: No Symptoms Reported EENT: reports: Nose Congestion Respiratory: reports: Cough (productive cough x 1 month) Cardiac: reports: No Symptoms Reported GI: reports: No Symptoms Reported : reports: No Symptoms Reported Musculoskeletal: reports: Joint Pain (B/l knee pain) Integumentary: reports: No Symptoms Reported Neuro: reports: No Symptoms reported Endocrine: reports: No Symptoms Reported Hematology: reports: No Symptoms Reported, Anemia Psychiatric: reports: Agitated Patient History - Patient Medical History Hx Anemia: Yes Hx Asthma: Yes (takes advil, albuterol) Hx Chronic Obstructive Pulmonary Disease (COPD): No Hx Cancer: No Hx Cardiac Disorders: No Hx Congestive Heart Failure: No Hx Hypertension: Yes (Norvasc, lasix, hydrochlorothiazide) Hx Hypercholesterolemia: No Hx Pacemaker: No HX Cerebrovascular Accident: No Hx Seizures: No Hx Dementia: No Hx Diabetes: No Hx Gastrointestinal Disorders: No Hx Liver Disease: No Hx Genitourinary Disorders: No Hx Sexually Transmitted Disorders: No Hx Renal Disease (ESRD): No Hx Thyroid Disease: No Hx Human Immunodeficiency Virus (HIV): No (last 01/22) Hx Hepatitis C: No Hx Depression: No Hx Suicide Attempt: No (Denies Suicidal/homicidal ideation at this time) Hx Bipolar Disorder: Yes Hx Schizophrenia: Yes - Patient Surgical History Past Surgical History: Yes Hx Neurologic Surgery: No Hx Cataract Extraction: No Hx Cardiac Surgery: No Hx Lung Surgery: No Hx Breast Surgery: No Hx Breast Biopsy: No Hx Abdominal Surgery: No Hx Appendectomy: No Hx Cholecystectomy: No Hx Genitourinary Surgery: No Hx Section: Yes (x2) Hx Orthopedic Surgery: (right ankle fx many yrs ago) Hx Hysterectomy: No Anesthesia Reaction: No - PPD History Previous Implant?: No Documented Results: Positive w/o proof Implanted On Prior [facility] Admission?: No Results: CXR 10/2016 PPD to be Administered?: No - Reproductive History Patient is a Female of Child Bearing Age (11 -55 yrs old): No Last Menstrual Period: 05/08/90 Patient : No - Smoking Cessation Smoking history: Current some day smoker Have you smoked in the past 12 months: Yes Aproximately how many cigarettes per day: 20 Cigars Per Day: 0 Hx Chewing Tobacco Use: No Initiated information on smoking cessation: Yes 'Breaking Loose' booklet given: 11/10/17 - Substance & Tx. History Hx Alcohol Use: Yes (Aracelis - a bottle a day) Hx Substance Use: Yes Substance Use Type: Cocaine (crack cocaine - 5 bags ($50) daily) - Substances Abused Alcohol Route: Oral Frequency: Daily Amount used: aracelis liquor 1 pint Age of first use: 10 Date of Last Use: 11/09/17 Cocaine Route: Smoking Frequency: 1-2 times per week Amount used: $100 Age of first use: 28 Date of Last Use: 11/09/17 Family Disease History - Family Disease History Family Disease History: Heart Disease: Father (), Mother (), Other: Brother (only child) Admission Physical Exam B[facility] - Vital Signs Vital Signs: Vital Signs - 24 hr 11/10/17 13:09 Temperature 97 F L Pulse Rate 101 H Respiratory 20 Rate Blood Pressure 109/69 - Physical General Appearance: Yes: Moderate Distress, Irritable, Anxious HEENTM: Yes: Nasal Congestion Respiratory: Yes: Chest Non-Tender, Lungs Clear, No Accessory Muscle Use Neck: Yes: No masses,lesions,Nodules Breast: Yes: Breast Exam Deferred Cardiology: Yes: Regular Rate, S1, S2 Abdominal: Yes: Normal Bowel Sounds, Non Tender, Distended Genitourinary: Yes: Within Normal Limits Back: Yes: Within Normal Limits Musculoskeletal: Yes: Back pain Extremities: Yes: Within Normal Limits, Normal Capillary Refill Neurological: Yes: Within Normal Limits Integumentary: Yes: Normal Color, Dry, Warm Lymphatic: Yes: Within Normal Limits - Diagnostic (1) Alcohol dependence with uncomplicated withdrawal Current Visit: No Status: Acute (2) Cocaine dependence, uncomplicated Current Visit: No Status: Chronic (3) Dental caries Current Visit: No Status: Acute (4) Arthritis Current Visit: No Status: Chronic (5) Asthma Current Visit: No Status: Chronic (6) Hypertension Current Visit: No Status: Chronic Qualifiers: (7) Nicotine dependence Current Visit: No Status: Chronic Qualifiers: Cleared for Admission [facility] - Detox or Rehab [facility] Level of Care: Medically Managed Detox Regimen/Protocol: Librium [facility] Breath Alcohol Content Breath Alcohol Content: 0 Urine Pregancy Test - Result Urine Test Results: Negative- NO Line Present Urine Drug Screen - Results Drug Screen Negative: No Urine Drug Screen Results: KULWINDER-Cocaine
[2017-11-10] MEDS ORDERED: NICOTINE POLACRILEX 2 MG GUM BUC PRN (16:26)
[2017-11-10] MEDS ORDERED: MAGNESIUM HYDROX 2400MG/30ML ORAL SUSPENSION 30 ML CUP PO PRN (16:26)
[2017-11-10] MEDS ORDERED: MAG HYDROX/AL HYDROX/SIMETH 30 ML UNIT-DOSE CUP PO PRN (16:26)
[2017-11-10] MEDS ORDERED: ACETAMINOPHEN 325 MG TABLET (FP) PO PRN (16:26)
[2017-11-10] MEDS ORDERED: MAGNESIUM CITRATE 300 ML BOTTLE PO PRN (16:26)
[2017-11-10] MEDS ORDERED: guaiFENesin/D-METHORPHAN HB 10 ML UNIT-DOSE CUPS PO PRN (16:26)
[2017-11-10] MEDS ORDERED: LOPERAMIDE HCL 2 MG CAPSULE PO PRN (16:26)
[2017-11-10] MEDS ORDERED: P-EPHED 60MG/TRIPROLIDI 2.5MG TABLET PO PRN (16:26)
[2017-11-10] MEDS ORDERED: MENTHOL/PHENOL 1 EACH UD MM PRN (16:26)
[2017-11-10] MEDS ORDERED: chlordiazePOXIDE HCL 25 MG CAPSULE PO PRN (16:26)
[2017-11-10] MEDS: IBUPROFEN 400 MG TABLET (FP) PO PRN (20:44)
[2017-11-10] MEDS: chlordiazePOXIDE HCL 25 MG CAPSULE PO SCH (22:30)
[2017-11-10] MEDS: CHLORHEXIDINE GLUCONATE 0.12% 15ML CUP MM SCH (22:30)
[2017-11-10] MEDS: MONTELUKAST NA 10 MG TABLET PO SCH (22:30)
[2017-11-10] MEDS: THIAMINE HCL 100 MG TABLET (FP) PO SCH (22:30)
[2017-11-10] MEDS ORDERED: BENZOCAINE 20 % GEL 9 GM TUBE MM PRN (22:36)
[2017-11-10 22:39] LABS: URINE APPEARANCE CLOUDY; URINE BILIRUBIN NEGATIVE (NEGATIVE); URINE BLOOD 1+ (NEGATIVE); URINE COLOR YELLOW; URINE GLUCOSE (UA) NEGATIVE (NEGATIVE); URINE KETONE NEGATIVE (NEGATIVE); URINE NITRITE POSITIVE (NEGATIVE); URINE PROTEIN NEGATIVE (NEGATIVE); URINE UROBILINOGEN NEGATIVE mg/dL (0.2-1.0)
[2017-11-10] MEDS: BUDESONIDE/FORMETEROL FUMARATE 80/4.5 mcg INHALER IH SCH (22:42)
[2017-11-10 22:53] LABS: URINE LEUK ESTERASE 2+ (NEGATIVE)
[2017-11-10 23:02] LABS: CALCIUM OXALATE CRYSTALS MODERATE /hpf (NONE SEEN); EPI CELLS RARE /HPF (FEW); URINE BACTERIA MANY /hpf (NONE SEEN); URINE MUCUS FEW
[2017-11-10] MEDS: LIDOCAINE PATCH REMOVAL MC SCH (23:39)
[2017-11-11] MEDS: chlordiazePOXIDE HCL 25 MG CAPSULE PO SCH ×4 (05:59→22:37)
[2017-11-11] MEDS: COLLOIDAL OATMEAL 1 BAR EACH TP PRN (06:02)
[2017-11-11] MEDS: VITAMINS A AND D TOPICAL OINTMENT 60 GM TUBE TP SCH ×4 (06:22→18:27)
--- NOTE | 2017-11-11 08:47 | PN ---
BHS CIWA - CIWA Score Nausea/Vomitin-Mild Nausea/No Vomiting Muscle Tremors: 4-Moderate,w/Arms Extend Anxiety: 4-Mod. Anxious/Guarded Agitation: 3 Paroxysmal Sweats: 1-Minimal Palms Moist Orientation: 0-Oriented Tacttile Disturbances: 0-None Auditory Disturbances: 0-None Visual Disturbances: 0-None Headache: 0-None Present CIWA-Ar Total Score: 13 BHS Progress Note (SOAP) Subjective: tremor sweat anxiety restlessness irritable Objective: 11/11/17 08:46 Vital Signs Temperature 97.3 F L 11/11/17 06:00 Pulse Rate 100 H 11/11/17 06:00 Respiratory Rate 18 11/11/17 06:00 Blood Pressure 132/85 11/11/17 06:00 O2 Sat by Pulse Oximetry (%) Laboratory Last Values Urine Color Yellow 11/10/17 Unknown Urine Appearance Cloudy 11/10/17 Unknown Urine pH 5.0 (5.0-8.0) 11/10/17 Unknown Ur Specific [place] 1.017 (1.001-1.035) 11/10/17 Unknown Urine Protein Negative (NEGATIVE) 11/10/17 Unknown Urine Glucose (UA) Negative (NEGATIVE) 11/10/17 Unknown Urine Ketones Negative (NEGATIVE) 11/10/17 Unknown Urine Blood 1+ (NEGATIVE) H 11/10/17 Unknown Urine Nitrite Positive (NEGATIVE) 11/10/17 Unknown Urine Bilirubin Negative (NEGATIVE) 11/10/17 Unknown Urine Urobilinogen Negative mg/dL (0.2-1.0) 11/10/17 Unknown Ur Leukocyte Esterase 2+ (NEGATIVE) H 11/10/17 Unknown Urine WBC (Auto) 37 /hpf (3-5) 11/10/17 Unknown Urine RBC (Auto) 5 /hpf (0-3) 11/10/17 Unknown Ur Epithelial Cells Rare /HPF (FEW) 11/10/17 Unknown Calcium Oxalate Crystal Moderate /hpf (NONE SEEN) 11/10/17 Unknown Urine Bacteria Many /hpf (NONE SEEN) 11/10/17 Unknown Urine Mucus Few 11/10/17 Unknown lab noted begin bactrim ds bid x 5 uti Assessment: 11/11/17 08:46 withdrawal sx uti Plan: continue detox bactrim ds bid x 5 days
[2017-11-11] MEDS ORDERED: LIDOCAINE VISCOUS 2% ORAL/TOP 20 ML UNIT-DOSE CUP MM PRN (08:49)
[2017-11-11 10:23] LABS: HEMATOCRIT 35.3 % (32.4-45.2); HEMOGLOBIN 11.9 GM/dL (10.7-15.3); MCH 32.7 pg (25.7-33.7); MCHC 33.7 g/dl (32.0-36.0); MEAN CELL VOLUME 97.2 fl (80-96); MEAN PLT VOLUME 7.3 fl (7.5-11.1); PLATELET COUNT 416 K/MM3 (134-434); RBC 3.63 M/mm3 (3.60-5.2); RDW 14.1 % (11.6-15.6); WHITE BLOOD COUNT 4.2 K/mm3 (4.0-10.0)
[2017-11-11 10:28] LABS: CHLORIDE 108 mmol/L (98-107); POTASSIUM 3.7 mmol/L (3.5-5.1); SODIUM 142 mmol/L (136-145)
[2017-11-11 10:50] LABS: ALBUMIN 3.4 g/dl (3.4-5.0); ALK PHOS 89 U/L (45-117); ANION GAP 9 (8-16); BILIRUBIN,TOTAL 0.4 mg/dL (0.2-1.0); BLOOD UREA NITROGEN 13 mg/dL (7-18); CALCIUM 8.2 mg/dL (8.5-10.1); CO2 25 mmol/L (21-32); GLUCOSE,RANDOM 118 mg/dL (74-106); SGOT/AST 23 U/L (15-37); SGPT/ALT 29 U/L (12-78); TOT PROT 6.8 g/dl (6.4-8.2)
[2017-11-11] MEDS: amLODIPine BESYLATE 5 MG TABLET (FP) PO SCH (11:07)
[2017-11-11] MEDS: HYDROCHLOROTHIAZIDE 12.5 MG CAPSULE (FP) PO SCH (11:07)
[2017-11-11] MEDS: PRENATAL VITAMINS W/ FOLIC ACID TABLET (FP) PO SCH (11:07)
[2017-11-11] MEDS: SULFAMETHOXAZOLE/TRIMETHOPRIM 800MG/160MG D.S. TABLET PO SCH ×2 (11:07→22:33)
[2017-11-11] MEDS: LIDOCAINE 5% TOPICAL PATCH TP SCH ×2 (11:08→11:09)
[2017-11-11] MEDS: NICOTINE 14 MG/24 HOURS TOPICAL PATCH TD SCH (11:08)
[2017-11-11] MEDS: CHLORHEXIDINE GLUCONATE 0.12% 15ML CUP MM SCH ×2 (11:10→22:36)
[2017-11-11] MEDS: BUDESONIDE/FORMETEROL FUMARATE 80/4.5 mcg INHALER IH SCH ×2 (11:11→22:38)
--- NOTE | 2017-11-11 11:19 | CONSULT ---
[facility] Psychiatric Consult - Data Date of interview: 11/11/17 Admission source: [facility] Identifying data: Pt. is a 57 year old single female, mother of two, unemployed , on disability and resides in a nursing home. This is one of multiple admissions for patient. Pt admitted to for alcohol and cocaine dependence. Substance Abuse History: Following information confirmed with Mr. Domínguez: Smoking Cessation. Smoking history: Current some day smoker. Have you smoked in the past 12 months: Yes. Aproximately how many cigarettes per day: 20. Cigars Per Day: 0. Hx Chewing Tobacco Use: No. Initiated information on smoking cessation: Yes. 'Breaking Loose' booklet given: 11/10/17. - Substance & Tx. History. Hx Alcohol Use: Yes (Aracelis - a bottle a day). Hx Substance Use : Yes. Substance Use Type: Cocaine (crack cocaine - 5 bags ($50) daily). - Substances Abused. Alcohol. Route: Oral. Frequency: Daily. Amount used: aracelis liquor 1 pint. Age of first use: 10. Date of Last Use: 11/09/17. Cocaine. Route: Smoking. Frequency: 1-2 times per week. Amount used: $100. Age of first use: 28. Date of Last Use: 11/09/17 Medical History: Anemia, Asthma, hypertension Psychiatric History: Pt. presents as a poor historian. Pt. denies h/o psychiatric hospitalizations. 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 Reports a diagnosis of Schizoaffective. States her PCP prescribes her risperdal and claims to have taken her most recent dose last week. Pt. made aware that her chart was reviewed and that she was a patient here in September and was prescribed Risperdal. Pt. is noncompliant with her medication. Pt. denies h/o suicide attempts. Pt. denies suicidal and homicidal ideation. Physical/Sexual Abuse/Trauma History: Denies. Mental Status Exam - Mental Status Exam Alert and Oriented to: Time, Place, Person Cognitive Function: Good Patient Appearance: Unkempt Mood: Withdrawn Affect: Mood Congruent Patient Behavior: Guarded Speech Pattern: Delayed Voice Loudness: Moderately Soft/Quiet Thought Process: Goal Oriented Thought Disorder: Not Present Hallucinations: Denies Suicidal Ideation: Denies Homicidal Ideation: Denies Insight/Judgement: Poor Sleep: Fair Appetite: Fair Muscle strength/Tone: Normal Gait/Station: Normal Psychiatric Findings - Problem List (Twain 1, 2,3) (1) Alcohol dependence with uncomplicated withdrawal Current Visit: Yes Status: Acute (2) Alcohol dependence Current Visit: Yes Status: Chronic (3) Cocaine dependence, uncomplicated Current Visit: Yes Status: Chronic (4) Schizoaffective disorder Current Visit: Yes Status: Chronic Qualifiers: - Initial Treatment Plan Initial Treatment Plan: Psychoeducation provided. Detoxification in progress. Pt. agreeable to resuming/restarting risperdal 1mg. Risperdal 1mg qhs ordered. Benefits and side effects discussed. Made aware of risk of abnormal involuntary movements,endocrine abnormalities (galactorrhea,gynecomastia,sexual dysfunction) ,metabolic syndrome,dystonias,akathisia,dyskinesias. Verbal consent given. Will continue to monitor.
--- NOTE | 2017-11-11 12:04 | EKG ---
Test Reason : Blood Pressure : / mmHG Vent. Rate : 088 BPM Atrial Rate : 088 BPM P-R Int : 124 ms QRS Dur : 084 ms QT Int : 370 ms P-R-T Axes : 072 055 050 degrees QTc Int : 447 ms NORMAL SINUS RHYTHM NORMAL ECG WHEN COMPARED WITH ECG OF 24-SEP-2017 16:01, NO SIGNIFICANT CHANGE WAS FOUND Confirmed by MD Caicedo Edward ([id number]) on 11/11/2017 12:03:39 PM Referred By: Confirmed By:Syed Caicedo MD
[2017-11-11] MEDS ORDERED: LIDOCAINE PATCH REMOVAL MC SCH (22:00)
[2017-11-11] MEDS: risperiDONE 1 MG TABLET (FP) PO SCH (22:33)
[2017-11-11] MEDS: THIAMINE HCL 100 MG TABLET (FP) PO SCH (22:33)
[2017-11-11] MEDS: LIDOCAINE PATCH REMOVAL MC SCH (22:34)
[2017-11-11] MEDS: MONTELUKAST NA 10 MG TABLET PO SCH (22:37)
[2017-11-11] MEDS: IBUPROFEN 400 MG TABLET (FP) PO PRN (22:38)
[2017-11-11] MEDS: ALBUTEROL SO4 18 GM HFA INHALER IH PRN (22:44)
[2017-11-12] MEDS: VITAMINS A AND D TOPICAL OINTMENT 60 GM TUBE TP SCH ×4 (00:04→19:05)
[2017-11-12] MEDS: chlordiazePOXIDE HCL 25 MG CAPSULE PO SCH ×3 (05:30→19:05)
[2017-11-12] MEDS: IBUPROFEN 400 MG TABLET (FP) PO PRN (05:32)
[2017-11-12] MEDS: ALBUTEROL SO4 18 GM HFA INHALER IH PRN (05:34)
--- NOTE | 2017-11-12 09:11 | PN ---
[facility] CIWA - CIWA Score Nausea/Vomitin-No Nausea/No Vomiting Muscle Tremors: 3 Anxiety: 3 Agitation: 3 Paroxysmal Sweats: 3 Orientation: 0-Oriented Tacttile Disturbances: 0-None Auditory Disturbances: 0-None Visual Disturbances: 0-None Headache: 0-None Present CIWA-Ar Total Score: 12 S Progress Note (SOAP) Subjective: sweat tremor anxiety restlessness Objective: 11/12/17 09:12 Vital Signs Temperature 96.8 F L 11/12/17 06:34 Pulse Rate 77 11/12/17 06:34 Respiratory Rate 18 11/12/17 06:34 Blood Pressure 108/68 11/12/17 06:34 O2 Sat by Pulse Oximetry (%) Laboratory Last Values WBC 4.2 K/mm3 (4.0-10.0) 11/11/17 05:45 RBC 3.63 M/mm3 (3.60-5.2) 11/11/17 05:45 Hgb 11.9 GM/dL (10.7-15.3) 11/11/17 05:45 Hct 35.3 % (32.4-45.2) 11/11/17 05:45 MCV 97.2 fl (80-96) H 11/11/17 05:45 MCH 32.7 pg (25.7-33.7) 11/11/17 05:45 MCHC 33.7 g/dl (32.0-36.0) 11/11/17 05:45 RDW 14.1 % (11.6-15.6) 11/11/17 05:45 Plt Count 416 K/MM3 (134-434) D 11/11/17 05:45 MPV 7.3 fl (7.5-11.1) L 11/11/17 05:45 Sodium 142 mmol/L (136-145) 11/11/17 05:45 Potassium 3.7 mmol/L (3.5-5.1) 11/11/17 05:45 Chloride 108 mmol/L (98-107) H 11/11/17 05:45 Carbon Dioxide 25 mmol/L (21-32) 11/11/17 05:45 Anion Gap 9 (8-16) 11/11/17 05:45 BUN 13 mg/dL (7-18) 11/11/17 05:45 Creatinine 1.0 mg/dL (0.55-1.02) 11/11/17 05:45 Creat Clearance w eGFR 57.15 (>60) 11/11/17 05:45 Random Glucose 118 mg/dL (74-106) H 11/11/17 05:45 Calcium 8.2 mg/dL (8.5-10.1) L 11/11/17 05:45 Total Bilirubin 0.4 mg/dL (0.2-1.0) D 11/11/17 05:45 AST 23 U/L (15-37) 11/11/17 05:45 ALT 29 U/L (12-78) 11/11/17 05:45 Alkaline Phosphatase 89 U/L (45-117) 11/11/17 05:45 Total Protein 6.8 g/dl (6.4-8.2) 11/11/17 05:45 Albumin 3.4 g/dl (3.4-5.0) 11/11/17 05:45 Urine Color Yellow 11/10/17 Unknown Urine Appearance Cloudy 11/10/17 Unknown Urine pH 5.0 (5.0-8.0) 11/10/17 Unknown Ur Specific [place] 1.017 (1.001-1.035) 11/10/17 Unknown Urine Protein Negative (NEGATIVE) 11/10/17 Unknown Urine Glucose (UA) Negative (NEGATIVE) 11/10/17 Unknown Urine Ketones Negative (NEGATIVE) 11/10/17 Unknown Urine Blood 1+ (NEGATIVE) H 11/10/17 Unknown Urine Nitrite Positive (NEGATIVE) 11/10/17 Unknown Urine Bilirubin Negative (NEGATIVE) 11/10/17 Unknown Urine Urobilinogen Negative mg/dL (0.2-1.0) 11/10/17 Unknown Ur Leukocyte Esterase 2+ (NEGATIVE) H 11/10/17 Unknown Urine WBC (Auto) 37 /hpf (3-5) 11/10/17 Unknown Urine RBC (Auto) 5 /hpf (0-3) 11/10/17 Unknown Ur Epithelial Cells Rare /HPF (FEW) 11/10/17 Unknown Calcium Oxalate Crystal Moderate /hpf (NONE SEEN) 11/10/17 Unknown Urine Bacteria Many /hpf (NONE SEEN) 11/10/17 Unknown Urine Mucus Few 11/10/17 Unknown RPR Titer Nonreactive (NONREACTIVE) 11/11/17 05:45 HIV 1&2 Antibody Screen Negative 11/11/17 05:45 HIV P24 Antigen Negative 11/11/17 05:45 lab noted patient responds to uti treatment well with oral hydration Assessment: 11/12/17 09:13 withdrawal sx uti Plan: continue detox
[2017-11-12] MEDS: HYDROCHLOROTHIAZIDE 12.5 MG CAPSULE (FP) PO SCH (11:08)
[2017-11-12] MEDS: SULFAMETHOXAZOLE/TRIMETHOPRIM 800MG/160MG D.S. TABLET PO SCH ×2 (11:08→22:00)
[2017-11-12] MEDS: LIDOCAINE 5% TOPICAL PATCH TP SCH ×2 (11:08→11:09)
[2017-11-12] MEDS: PRENATAL VITAMINS W/ FOLIC ACID TABLET (FP) PO SCH (11:09)
[2017-11-12] MEDS: CHLORHEXIDINE GLUCONATE 0.12% 15ML CUP MM SCH ×2 (11:09→22:01)
[2017-11-12] MEDS: BUDESONIDE/FORMETEROL FUMARATE 80/4.5 mcg INHALER IH SCH ×2 (11:09→22:01)
[2017-11-12] MEDS: amLODIPine BESYLATE 5 MG TABLET (FP) PO SCH (11:09)
[2017-11-12] MEDS: NICOTINE 14 MG/24 HOURS TOPICAL PATCH TD SCH (11:09)
[2017-11-12] MEDS ORDERED: LIDOCAINE 5% TOPICAL PATCH TP SCH (12:26)
[2017-11-12 14:52] LABS: URINE APPEARANCE CLEAR; URINE BILIRUBIN NEGATIVE (NEGATIVE); URINE BLOOD NEGATIVE (NEGATIVE); URINE COLOR LTYELLOW; URINE GLUCOSE (UA) NEGATIVE (NEGATIVE); URINE KETONE NEGATIVE (NEGATIVE); URINE NITRITE NEGATIVE (NEGATIVE); URINE PROTEIN NEGATIVE (NEGATIVE); URINE UROBILINOGEN NEGATIVE mg/dL (0.2-1.0)
[2017-11-12 14:53] LABS: URINE LEUK ESTERASE 1+ (NEGATIVE)
[2017-11-12 14:57] LABS: CALCIUM OXALATE CRYSTALS FEW /hpf (NONE SEEN); EPI CELLS RARE /HPF (FEW); URINE BACTERIA RARE /hpf (NONE SEEN); URINE MUCUS RARE
[2017-11-12] MEDS: chlordiazePOXIDE 5 MG CAPSULE PO SCH ×2 (17:21→22:00)
[2017-11-12] MEDS: MONTELUKAST NA 10 MG TABLET PO SCH (22:00)
[2017-11-12] MEDS: risperiDONE 1 MG TABLET (FP) PO SCH (22:00)
[2017-11-12] MEDS: LIDOCAINE PATCH REMOVAL MC SCH (22:01)
[2017-11-12] MEDS: THIAMINE HCL 100 MG TABLET (FP) PO SCH (22:01)
[2017-11-13] MEDS: VITAMINS A AND D TOPICAL OINTMENT 60 GM TUBE TP SCH ×5 (05:00→17:27)
[2017-11-13] MEDS: chlordiazePOXIDE 5 MG CAPSULE PO SCH ×2 (05:51→10:46)
[2017-11-13] MEDS: IBUPROFEN 400 MG TABLET (FP) PO PRN ×2 (05:52→22:19)
--- NOTE | 2017-11-13 09:46 | PN ---
S Progress Note (SOAP) Subjective: alert oriented x 3 no acute distress tolerate food and fluid well no tremor less sweat at night Objective: 11/13/17 09:45 Vital Signs Temperature 97.5 F L 11/13/17 06:32 Pulse Rate 96 H 11/13/17 06:32 Respiratory Rate 19 11/13/17 06:32 Blood Pressure 131/87 11/13/17 06:32 O2 Sat by Pulse Oximetry (%) Laboratory Last Values WBC 4.2 K/mm3 (4.0-10.0) 11/11/17 05:45 RBC 3.63 M/mm3 (3.60-5.2) 11/11/17 05:45 Hgb 11.9 GM/dL (10.7-15.3) 11/11/17 05:45 Hct 35.3 % (32.4-45.2) 11/11/17 05:45 MCV 97.2 fl (80-96) H 11/11/17 05:45 MCH 32.7 pg (25.7-33.7) 11/11/17 05:45 MCHC 33.7 g/dl (32.0-36.0) 11/11/17 05:45 RDW 14.1 % (11.6-15.6) 11/11/17 05:45 Plt Count 416 K/MM3 (134-434) D 11/11/17 05:45 MPV 7.3 fl (7.5-11.1) L 11/11/17 05:45 Sodium 142 mmol/L (136-145) 11/11/17 05:45 Potassium 3.7 mmol/L (3.5-5.1) 11/11/17 05:45 Chloride 108 mmol/L (98-107) H 11/11/17 05:45 Carbon Dioxide 25 mmol/L (21-32) 11/11/17 05:45 Anion Gap 9 (8-16) 11/11/17 05:45 BUN 13 mg/dL (7-18) 11/11/17 05:45 Creatinine 1.0 mg/dL (0.55-1.02) 11/11/17 05:45 Creat Clearance w eGFR 57.15 (>60) 11/11/17 05:45 Random Glucose 118 mg/dL (74-106) H 11/11/17 05:45 Calcium 8.2 mg/dL (8.5-10.1) L 11/11/17 05:45 Total Bilirubin 0.4 mg/dL (0.2-1.0) D 11/11/17 05:45 AST 23 U/L (15-37) 11/11/17 05:45 ALT 29 U/L (12-78) 11/11/17 05:45 Alkaline Phosphatase 89 U/L (45-117) 11/11/17 05:45 Total Protein 6.8 g/dl (6.4-8.2) 11/11/17 05:45 Albumin 3.4 g/dl (3.4-5.0) 11/11/17 05:45 Urine Color Ltyellow 11/12/17 13:40 Urine Appearance Clear 11/12/17 13:40 Urine pH 6.0 (5.0-8.0) 11/12/17 13:40 Ur Specific [place] 1.013 (1.001-1.035) 11/12/17 13:40 Urine Protein Negative (NEGATIVE) 11/12/17 13:40 Urine Glucose (UA) Negative (NEGATIVE) 11/12/17 13:40 Urine Ketones Negative (NEGATIVE) 11/12/17 13:40 Urine Blood Negative (NEGATIVE) 11/12/17 13:40 Urine Nitrite Negative (NEGATIVE) 11/12/17 13:40 Urine Bilirubin Negative (NEGATIVE) 11/12/17 13:40 Urine Urobilinogen Negative mg/dL (0.2-1.0) 11/12/17 13:40 Ur Leukocyte Esterase 1+ (NEGATIVE) H 11/12/17 13:40 Urine WBC (Auto) 12 /hpf (3-5) 11/12/17 13:40 Urine RBC (Auto) 19 /hpf (0-3) 11/12/17 13:40 Ur Epithelial Cells Rare /HPF (FEW) 11/12/17 13:40 Calcium Oxalate Crystal Few /hpf (NONE SEEN) 11/12/17 13:40 Urine Bacteria Rare /hpf (NONE SEEN) 11/12/17 13:40 Urine Mucus Rare 11/12/17 13:40 RPR Titer Nonreactive (NONREACTIVE) 11/11/17 05:45 HIV 1&2 Antibody Screen Negative 11/11/17 05:45 HIV P24 Antigen Negative 11/11/17 05:45 lab noted Assessment: 11/13/17 09:46 mild withdrawal sx Plan: medically supervised detox
[2017-11-13] MEDS: SULFAMETHOXAZOLE/TRIMETHOPRIM 800MG/160MG D.S. TABLET PO SCH ×2 (10:19→22:20)
[2017-11-13] MEDS: HYDROCHLOROTHIAZIDE 12.5 MG CAPSULE (FP) PO SCH (10:19)
[2017-11-13] MEDS: PRENATAL VITAMINS W/ FOLIC ACID TABLET (FP) PO SCH (10:19)
[2017-11-13] MEDS: amLODIPine BESYLATE 5 MG TABLET (FP) PO SCH (10:19)
[2017-11-13] MEDS: NICOTINE 14 MG/24 HOURS TOPICAL PATCH TD SCH (10:20)
[2017-11-13] MEDS: LIDOCAINE 5% TOPICAL PATCH TP SCH (10:22)
[2017-11-13] MEDS: CHLORHEXIDINE GLUCONATE 0.12% 15ML CUP MM SCH (10:23)
[2017-11-13] MEDS: BUDESONIDE/FORMETEROL FUMARATE 80/4.5 mcg INHALER IH SCH (10:23)
[2017-11-13] MEDS ORDERED: NICOTINE POLACRILEX 4 MG GUM BUC PRN (10:43)
[2017-11-13] MEDS: METHYL SALICYLATE/MENTHOL OINT 30 GM TUBE TP SCH ×2 (11:22→13:23)
[2017-11-13] MEDS: MONTELUKAST NA 10 MG TABLET PO SCH (22:20)
[2017-11-13] MEDS: risperiDONE 1 MG TABLET (FP) PO SCH (22:20)
[2017-11-13] MEDS: chlordiazePOXIDE HCL 10 MG CAPSULE PO SCH (22:20)
[2017-11-13] MEDS: THIAMINE HCL 100 MG TABLET (FP) PO SCH (22:20)
[2017-11-13] MEDS: LIDOCAINE PATCH REMOVAL MC SCH (23:48)
[2017-11-13] MEDS: hydrOXYzine PAMOATE 50 MG CAPSULE (FP) PO PRN (23:52)
[2017-11-14] MEDS: VITAMINS A AND D TOPICAL OINTMENT 60 GM TUBE TP SCH (00:24)
[2017-11-14] MEDS: COLLOIDAL OATMEAL 1 BAR EACH TP PRN (06:12)
[2017-11-14] MEDS: chlordiazePOXIDE HCL 10 MG CAPSULE PO SCH ×2 (06:12→11:02)
[2017-11-14] MEDS: IBUPROFEN 400 MG TABLET (FP) PO PRN (06:13)
--- NOTE | 2017-11-14 08:46 | DS ---
[facility] Detox Discharge Summary Admission Date: 11/10/17 Discharge Date: 11/14/17 - History Present History: Alcohol Dependence, Cocaine Dependence - Physical Exam Results Vital Signs: Vital Signs Temperature 97.3 F L 11/14/17 06:38 Pulse Rate 82 11/14/17 06:38 Respiratory Rate 18 11/14/17 06:38 Blood Pressure 111/66 11/14/17 06:38 O2 Sat by Pulse Oximetry (%) - Treatment Hospital Course: Detox Protocol Followed, Detoxed Safely, Responded well, Discharged Condition Good - Medication Discharge Medications: Ambulatory Orders Aspirin [ASA -] 81 mg PO DAILY #30 mg 10/08/17 Chlorhexidine Gluconate [Peridex -] 15 ml MM BID 30 Days cup 10/08/17 Fluticasone/Salmeterol [Advair 250-50 Diskus] 1 each IH BID #1 disk.w.dev Risperidone [Risperdal -] 1 mg PO HS #30 tablet 10/08/17 Albuterol Sulfate Inhaler - [Ventolin HFA Inhaler -] 2 inh IH Q4H PRN #1 inhaler 11/13/17 Amlodipine Besylate [Norvasc -] 5 mg PO DAILY #30 tablet 11/13/17 Hydrochlorothiazide [Hctz -] 12.5 mg PO DAILY #30 cap 11/13/17 Montelukast Na [Singulair -] 10 mg PO HS #30 mg 11/13/17 - Diagnosis (1) Alcohol dependence with uncomplicated withdrawal Current Visit: Yes Status: Chronic (2) Cocaine dependence, uncomplicated Current Visit: Yes Status: Chronic (3) Schizoaffective disorder Current Visit: Yes Status: Chronic Qualifiers: (4) Dental caries Current Visit: No Status: Chronic (5) Asthma Current Visit: No Status: Chronic Qualifiers: Asthma severity: mild Asthma persistence: intermittent Asthma complication type: uncomplicated Qualified Code(s): J45.20 - Mild intermittent asthma, uncomplicated (6) GERD (gastroesophageal reflux disease) Current Visit: No Status: Chronic Qualifiers: (7) Hypertension Current Visit: No Status: Chronic Qualifiers: Hypertension type: essential hypertension (8) Nicotine dependence Current Visit: No Status: Chronic Qualifiers: Nicotine product type: cigarettes - AMA Did Patient Leave Against Medical Advice: No
[2017-11-14 09:47] VITALS: BP 116/75; PULSE 102; TEMP 97.5
[2017-11-14] MEDS: HYDROCHLOROTHIAZIDE 12.5 MG CAPSULE (FP) PO SCH (10:32)
[2017-11-14] MEDS: PRENATAL VITAMINS W/ FOLIC ACID TABLET (FP) PO SCH (10:32)
[2017-11-14] MEDS: SULFAMETHOXAZOLE/TRIMETHOPRIM 800MG/160MG D.S. TABLET PO SCH (10:32)
[2017-11-14] MEDS: hydrOXYzine PAMOATE 50 MG CAPSULE (FP) PO PRN (10:32)
[2017-11-14] MEDS: amLODIPine BESYLATE 5 MG TABLET (FP) PO SCH (10:33)
[2017-11-14] MEDS: NICOTINE 14 MG/24 HOURS TOPICAL PATCH TD SCH (10:33)
[2017-11-14] MEDS: LIDOCAINE 5% TOPICAL PATCH TP SCH (11:02)
== END 2017-11-14 12:22 | disposition home or self-care (01) | DRG 774 ==
LOC: YASAS 11:23 → Y6N 16:09
PROVIDERS: ADMIT Internal Medicine; ATTEND Internal Medicine
PROC: HZ2ZZZZ Detoxification Services for Substance Abuse Treatment (ICD-10-PCS; principal; 2017-11-10)
DX: F10.230 Alcohol dependence with withdrawal, uncomplicated (principal); F14.20 Cocaine dependence, uncomplicated; F17.210 Nicotine dependence, cigarettes, uncomplicated; F25.9 Schizoaffective disorder, unspecified; I10 Essential (primary) hypertension; J45.909 Unspecified asthma, uncomplicated; K02.9 Dental caries, unspecified; K21.9 Gastro-esophageal reflux disease without esophagitis; N39.0 Urinary tract infection, site not specified; M19.90 Unspecified osteoarthritis, unspecified site; D64.9 Anemia, unspecified; Z91.013 Allergy to seafood; Z91.018 Allergy to other foods
CPT/HCPCS: 36415; 71046-TC-FY; 80053; 81003; 81015; 85027; 86593; 87389; 93005; 93010; J2794

== ENCOUNTER 2017-12-12 13:01 | Inpatient (IN) | payer OTHER ==
[2017-12-12 18:11] VITALS: BMI 32.4
--- NOTE | 2017-12-12 20:31 | HP ---
CIWA Score - CIWA Score Nausea/Vomitin-Mild Nausea/No Vomiting Muscle Tremors: 1-None Visible, but [place] Anxiety: 4-Mod. Anxious/Guarded Agitation: 4-Moderately Restless Paroxysmal Sweats: 3 Orientation: 0-Oriented Tacttile Disturbances: 3-Moderate Itch/Numb/Burn Auditory Disturbances: 0-None Visual Disturbances: 0-None Headache: 0-None Present CIWA-Ar Total Score: 16 Admission ROS S - HPI Chief Complaint: c/o withdrawal sx's from alcohol. seeking detox Allergies/Adverse Reactions: Allergies Allergy/AdvReac Type Severity Reaction Status Date / Time mushroom Allergy Severe Rash Verified 12/12/17 18:42 No Known Drug Allergies Allergy Verified 12/12/17 18:42 salmon Allergy Severe Difficulty Uncoded 12/12/17 18:42 Breathing History of Present Illness: 57 Y.O. FEMLAE WITH LONG HX/O ALCOHOLISM HERE FOR DETOX FOR ALCOHOL DEPENDENCE. CLIENT IS KNOWN TO THIS PROGRAM LAST HERE 11/2017. HAS SINCE RELAPSED. REPORTS LONGEST CLEAN TIME 3 YEARS. SELF REFERRED. DENIES LEGALS Exam Limitations: No Limitations - Ebola screening Have you traveled outside of the country in the last 21 days: No Have you had contact with anyone from an Ebola affected area: No Have you been sick,other than usual withdrawal symptoms: No Do you have a fever: No - Review of Systems Constitutional: Chills, Loss of Appetite, Malaise, Night Sweats, Changes in sleep EENT: reports: Other (CORRECTIVE LENSES) Respiratory: reports: No Symptoms reported Cardiac: reports: No Symptoms Reported GI: reports: Constipated, Poor Appetite, Poor Fluid Intake, Abdominal cramping : reports: No Symptoms Reported Musculoskeletal: reports: Joint Pain (L KNEE) Integumentary: reports: No Symptoms Reported Neuro: reports: No Symptoms reported Endocrine: reports: No Symptoms Reported Hematology: reports: No Symptoms Reported Psychiatric: reports: Anxious, Depressed Other Systems: Reviewed and Negative Patient History - Patient Medical History Hx Anemia: Yes (HX/O) Hx Asthma: Yes Hx Chronic Obstructive Pulmonary Disease (COPD): No Hx Cancer: No Hx Cardiac Disorders: No Hx Congestive Heart Failure: No Hx Hypertension: Yes (Norvasc, lasix, hydrochlorothiazide) Hx Hypercholesterolemia: No Hx Pacemaker: No HX Cerebrovascular Accident: No Hx Seizures: No Hx Dementia: No Hx Diabetes: No Hx Gastrointestinal Disorders: Yes (GERD) Hx Liver Disease: No Hx Genitourinary Disorders: No Hx Sexually Transmitted Disorders: No Hx Renal Disease (ESRD): No Hx Thyroid Disease: No Hx Human Immunodeficiency Virus (HIV): No Hx Hepatitis C: No Hx Depression: Yes Hx Suicide Attempt: No (Denies Suicidal/homicidal ideation at this time) Hx Bipolar Disorder: Yes Hx Schizophrenia: Yes Other Medical History: INSOMNIA, ANXIETY - Patient Surgical History Past Surgical History: Yes Hx Neurologic Surgery: No Hx Cataract Extraction: No Hx Cardiac Surgery: No Hx Lung Surgery: No Hx Breast Surgery: No Hx Breast Biopsy: No Hx Abdominal Surgery: No Hx Appendectomy: No Hx Cholecystectomy: No Hx Genitourinary Surgery: No Hx Section: Yes (x2) Hx Orthopedic Surgery: (right ankle fx many yrs ago) Hx Hysterectomy: No Anesthesia Reaction: No - PPD History Previous Implant?: Yes Documented Results: Positive w/o proof Results: NEG CXR 11/2017 PPD to be Administered?: No - Reproductive History Last Menstrual Period: 05/08/90 Patient : No - Smoking Cessation Smoking history: Current some day smoker Have you smoked in the past 12 months: Yes Aproximately how many cigarettes per day: 2 Cigars Per Day: 0 Hx Chewing Tobacco Use: No Initiated information on smoking cessation: Yes 'Breaking Loose' booklet given: 12/12/17 - Substance & Tx. History Hx Alcohol Use: Yes Hx Substance Use: Yes Substance Use Type: Alcohol, Cocaine Hx Substance Use Treatment: Yes ([facility]) - Substances Abused Alcohol Route: Oral Frequency: Daily Amount used: LIQUOR- 1 PINT, BEER- 1 SIX PACK Age of first use: 10 Date of Last Use: 12/11/17 Crack Route: Smoking Frequency: 1-2 times per week Amount used: 5 BAGS Age of first use: 28 Date of Last Use: 12/11/17 Family Disease History - Family Disease History Family Disease History: Heart Disease: Father (), Mother (), Other: Brother (only child) Admission Physical Exam S - Vital Signs Vital Signs: Vital Signs - 24 hr 12/12/17 18:06 Temperature 98.2 F Pulse Rate 99 H Respiratory 18 Rate Blood Pressure 132/77 - Physical General Appearance: Yes: Appropriately Dressed, Irritable HEENTM: Yes: EOMI, Normocephalic, Normal Voice, COLIN, Pharynx Normal, Other ( MISSING TEETH) Respiratory: Yes: Chest Non-Tender, Lungs Clear, Normal Breath Sounds, No Respiratory Distress, No Accessory Muscle Use Neck: Yes: No masses,lesions,Nodules, Supple, Trachea in good position Breast: Yes: Breast Exam Deferred Cardiology: Yes: Regular Rhythm, Regular Rate, S1, S2 Abdominal: Yes: Non Tender, Soft, Protuberent Genitourinary: Yes: Within Normal Limits Back: Yes: Normal Inspection Musculoskeletal: Yes: full range of Motion, Gait Steady Extremities: Yes: Normal Range of Motion, Non-Tender, Tremors Neurological: Yes: Fully Oriented, Alert Integumentary: Yes: Normal Color, Dry, Warm Lymphatic: Yes: Within Normal Limits - Diagnostic (1) Alcohol dependence with uncomplicated withdrawal Current Visit: Yes Status: Chronic (2) Arthritis Current Visit: Yes Status: Chronic (3) Asthma Current Visit: Yes Status: Chronic Qualifiers: Asthma severity: mild Asthma persistence: intermittent Asthma complication type: uncomplicated Qualified Code(s): J45.20 - Mild intermittent asthma, uncomplicated (4) Cocaine dependence, uncomplicated Current Visit: Yes Status: Chronic (5) GERD (gastroesophageal reflux disease) Current Visit: Yes Status: Chronic Qualifiers: Esophagitis presence: esophagitis presence not specified Qualified Code(s) : K21.9 - Gastro-esophageal reflux disease without esophagitis (6) Hypertension Current Visit: Yes Status: Chronic Qualifiers: Hypertension type: essential hypertension (7) Nicotine dependence Current Visit: Yes Status: Chronic Qualifiers: Nicotine product type: cigarettes (8) Positive PPD Current Visit: Yes Status: Chronic Cleared for Admission S - Detox or Rehab [facility] Level of Care: Medically Managed Detox Regimen/Protocol: Librium [facility] Breath Alcohol Content Breath Alcohol Content: 0 Urine Drug Screen - Results Drug Screen Negative: No Urine Drug Screen Results: KULWINDER-Cocaine, TCA-Tricyclic Antidepress
[2017-12-12] MEDS ORDERED: P-EPHED 60MG/TRIPROLIDI 2.5MG TABLET PO PRN (20:35)
[2017-12-12] MEDS ORDERED: guaiFENesin/D-METHORPHAN HB 10 ML UNIT-DOSE CUPS PO PRN (20:35)
[2017-12-12] MEDS ORDERED: MAGNESIUM HYDROX 2400MG/30ML ORAL SUSPENSION 30 ML CUP PO PRN (20:35)
[2017-12-12] MEDS ORDERED: MAGNESIUM CITRATE 300 ML BOTTLE PO PRN (20:35)
[2017-12-12] MEDS ORDERED: LOPERAMIDE HCL 2 MG CAPSULE PO PRN (20:35)
[2017-12-12] MEDS ORDERED: MENTHOL/PHENOL 1 EACH UD MM PRN (20:35)
[2017-12-12] MEDS ORDERED: NICOTINE POLACRILEX 2 MG GUM BC PRN (20:35)
[2017-12-12] MEDS ORDERED: chlordiazePOXIDE HCL 25 MG CAPSULE PO PRN (20:35)
[2017-12-12] MEDS ORDERED: MAG HYDROX/AL HYDROX/SIMETH 30 ML UNIT-DOSE CUP PO PRN (20:35)
[2017-12-12] MEDS ORDERED: METHYL SALICYLATE/MENTHOL OINT 30 GM TUBE TP PRN (20:37)
[2017-12-12] MEDS ORDERED: COLLOIDAL OATMEAL 1 BAR EACH TP PRN (20:38)
[2017-12-12] MEDS ORDERED: ALBUTEROL SO4 18 GM HFA INHALER IH PRN (20:39)
[2017-12-12] MEDS ORDERED: MELATONIN 5 MG TABLETS PO PRN (22:00)
[2017-12-12] MEDS: BUDESONIDE/FORMETEROL FUMARATE 80/4.5 mcg INHALER IH SCH (22:35)
[2017-12-12] MEDS: IBUPROFEN 400 MG TABLET (FP) PO PRN (22:36)
[2017-12-12] MEDS: MONTELUKAST NA 10 MG TABLET PO SCH (22:37)
[2017-12-12] MEDS: chlordiazePOXIDE HCL 25 MG CAPSULE PO SCH (22:37)
[2017-12-12] MEDS: CYCLOBENZAPRINE HCL 5 MG TABLET PO PRN (22:38)
[2017-12-12] MEDS: LIDOCAINE PATCH REMOVAL MC SCH (22:38)
[2017-12-12] MEDS: THIAMINE HCL 100 MG TABLET (FP) PO SCH (23:33)
[2017-12-13 01:30] LABS: URINE APPEARANCE SLCLOUDY; URINE BILIRUBIN NEGATIVE (<2.0 mg/dL); URINE BLOOD NEGATIVE (NEGATIVE); URINE COLOR LTYELLOW; URINE GLUCOSE (UA) NEGATIVE (NEGATIVE); URINE KETONE NEGATIVE (NEGATIVE); URINE LEUK ESTERASE TRACE (NEGATIVE); URINE NITRITE POSITIVE (NEGATIVE); URINE PROTEIN NEGATIVE (NEGATIVE); URINE UROBILINOGEN NEGATIVE mg/dL (0.2-1.0)
[2017-12-13 01:57] LABS: EPI CELLS FEW /HPF (FEW); URINE BACTERIA MANY /hpf (NONE SEEN); URINE MUCUS RARE
[2017-12-13 02:02] LABS: AMORP URATES MODERATE /hpf (NONE SEEN)
[2017-12-13] MEDS: chlordiazePOXIDE HCL 25 MG CAPSULE PO SCH ×4 (06:01→22:28)
[2017-12-13] MEDS: IBUPROFEN 400 MG TABLET (FP) PO PRN ×2 (06:03→12:49)
[2017-12-13] MEDS: CYCLOBENZAPRINE HCL 5 MG TABLET PO PRN ×3 (06:03→22:31)
[2017-12-13] MEDS ORDERED: HYDROCHLOROTHIAZIDE 12.5 MG CAPSULE (FP) PO SCH (10:00)
--- NOTE | 2017-12-13 10:34 | EKG ---
Test Reason : Blood Pressure : / mmHG Vent. Rate : 090 BPM Atrial Rate : 090 BPM P-R Int : 136 ms QRS Dur : 078 ms QT Int : 380 ms P-R-T Axes : 072 032 035 degrees QTc Int : 464 ms NORMAL SINUS RHYTHM POSSIBLE LEFT ATRIAL ENLARGEMENT SEPTAL INFARCT , AGE UNDETERMINED ABNORMAL ECG WHEN COMPARED WITH ECG OF 10-NOV-2017 20:02, SEPTAL INFARCT IS NOW PRESENT Confirmed by KELLY KOLB, ABBY ([id number]) on 12/13/2017 10:34:38 AM Referred By: Confirmed By:ABBY MENDOZA MD
[2017-12-13 11:19] LABS: HEMOGLOBIN 10.8 GM/dL (10.7-15.3); MCH 32.9 pg (25.7-33.7); MCHC 33.8 g/dl (32.0-36.0); MEAN CELL VOLUME 97.5 fl (80-96); PLATELET COUNT 241 K/MM3 (134-434); RBC 3.29 M/mm3 (3.60-5.2); RDW 15.5 % (11.6-15.6); WHITE BLOOD COUNT 4.2 K/mm3 (4.0-10.0)
[2017-12-13 11:28] LABS: CHLORIDE 110 mmol/L (98-107); POTASSIUM 3.6 mmol/L (3.5-5.1); SODIUM 144 mmol/L (136-145)
[2017-12-13 11:33] LABS: ALBUMIN 2.9 g/dl (3.4-5.0); ANION GAP 9 (8-16); BILIRUBIN,TOTAL 0.2 mg/dL (0.2-1.0); BLOOD UREA NITROGEN 16 mg/dL (7-18); CALCIUM 8.2 mg/dL (8.5-10.1); CO2 25 mmol/L (21-32); CREATININE 0.9 mg/dL (0.55-1.02); GLUCOSE,RANDOM 109 mg/dL (74-106); SGOT/AST 18 U/L (15-37); SGPT/ALT 25 U/L (12-78); TOT PROT 5.9 g/dl (6.4-8.2)
[2017-12-13] MEDS: PRENATAL VITAMINS W/ FOLIC ACID TABLET (FP) PO SCH (11:37)
[2017-12-13] MEDS: ASPIRIN 81 MG CHEWABLE TABLETS PO SCH (11:37)
[2017-12-13] MEDS: amLODIPine BESYLATE 5 MG TABLET (FP) PO SCH (11:37)
[2017-12-13] MEDS: LIDOCAINE 5% TOPICAL PATCH TP SCH (11:37)
[2017-12-13] MEDS: BUDESONIDE/FORMETEROL FUMARATE 80/4.5 mcg INHALER IH SCH ×2 (11:37→22:29)
[2017-12-13 12:12] LABS: ALK PHOS 73 U/L (45-117)
[2017-12-13] MEDS ORDERED: ASPIRIN 81 MG CHEWABLE TABLETS PO ONE (12:45)
[2017-12-13] MEDS: HYDROCHLOROTHIAZIDE 12.5 MG CAPSULE (FP) PO SCH (12:45)
[2017-12-13] MEDS ORDERED: amLODIPine BESYLATE 5 MG TABLET (FP) PO ONE (12:45)
--- NOTE | 2017-12-13 14:58 | PN ---
S CIWA - CIWA Score Nausea/Vomitin Muscle Tremors: 2 Anxiety: 2 Agitation: 2 Paroxysmal Sweats: 2 Orientation: 0-Oriented Tacttile Disturbances: 1-Very Mild Itch/Numbness Auditory Disturbances: 1-Very Mild Visual Disturbances: 1-Very Mild Sensitivity Headache: 2-Mild CIWA-Ar Total Score: 15 S Progress Note (SOAP) Subjective: Generalized pain, worse in the knees, anxiety Objective: 12/13/17 14:54 Vital Signs - 8 hr 12/13/17 10:00 Temperature 95.5 F L Pulse Rate 84 Respiratory 20 Rate Blood Pressure 138/91 Laboratory Last Values WBC 4.2 K/mm3 (4.0-10.0) 12/13/17 08:00 RBC 3.29 M/mm3 (3.60-5.2) L 12/13/17 08:00 Hgb 10.8 GM/dL (10.7-15.3) 12/13/17 08:00 Hct 32.0 % (32.4-45.2) L 12/13/17 08:00 MCV 97.5 fl (80-96) H 12/13/17 08:00 MCH 32.9 pg (25.7-33.7) 12/13/17 08:00 MCHC 33.8 g/dl (32.0-36.0) 12/13/17 08:00 RDW 15.5 % (11.6-15.6) 12/13/17 08:00 Plt Count 241 K/MM3 (134-434) D 12/13/17 08:00 MPV 8.0 fl (7.5-11.1) 12/13/17 08:00 Sodium 144 mmol/L (136-145) 12/13/17 08:00 Potassium 3.6 mmol/L (3.5-5.1) 12/13/17 08:00 Chloride 110 mmol/L (98-107) H 12/13/17 08:00 Carbon Dioxide 25 mmol/L (21-32) 12/13/17 08:00 Anion Gap 9 (8-16) 12/13/17 08:00 BUN 16 mg/dL (7-18) 12/13/17 08:00 Creatinine 0.9 mg/dL (0.55-1.02) 12/13/17 08:00 Creat Clearance w eGFR > 60 (>60) 12/13/17 08:00 Random Glucose 109 mg/dL (74-106) H 12/13/17 08:00 Calcium 8.2 mg/dL (8.5-10.1) L 12/13/17 08:00 Total Bilirubin 0.2 mg/dL (0.2-1.0) D 12/13/17 08:00 AST 18 U/L (15-37) 12/13/17 08:00 ALT 25 U/L (12-78) 12/13/17 08:00 Alkaline Phosphatase 73 U/L (45-117) 12/13/17 08:00 Total Protein 5.9 g/dl (6.4-8.2) L 12/13/17 08:00 Albumin 2.9 g/dl (3.4-5.0) L 12/13/17 08:00 Urine Color Ltyellow 12/13/17 00:06 Urine Appearance Slcloudy 12/13/17 00:06 Urine pH 5.0 (5.0-8.0) 12/13/17 00:06 Ur Specific [place] 1.012 (1.001-1.035) 12/13/17 00:06 Urine Protein Negative (NEGATIVE) 12/13/17 00:06 Urine Glucose (UA) Negative (NEGATIVE) 12/13/17 00:06 Urine Ketones Negative (NEGATIVE) 12/13/17 00:06 Urine Blood Negative (NEGATIVE) 12/13/17 00:06 Urine Nitrite Positive (NEGATIVE) 12/13/17 00:06 Urine Bilirubin Negative (<2.0 mg/dL) 12/13/17 00:06 Urine Urobilinogen Negative mg/dL (0.2-1.0) 12/13/17 00:06 Ur Leukocyte Esterase Trace (NEGATIVE) 12/13/17 00:06 Urine WBC (Auto) 14 /hpf (3-5) 12/13/17 00:06 Urine RBC (Auto) 3 /hpf (0-3) 12/13/17 00:06 Ur Epithelial Cells Few /HPF (FEW) 12/13/17 00:06 Amorphous Urates Moderate /hpf (NONE SEEN) 12/13/17 00:06 Urine Bacteria Many /hpf (NONE SEEN) 12/13/17 00:06 Urine Mucus Rare 12/13/17 00:06 Labs noted UA positive for nitrites, many bacteria and leukocyte esterase, however there are some epithelial cells suggestive of contamination. Patient nonetheless reports of burning sensation on urination as well as suprapubic pain. Patient reports she thinks she has urinary infection. Assessment: 12/13/17 14:57 Withdrawal sx UTI Plan: Continue detox Bactrim DS BID x 5 days Encourage oral fluid intake
--- NOTE | 2017-12-13 16:46 | CONSULT ---
[facility] Psychiatric Consult - Data Date of interview: 12/13/17 Admission source: [facility] Identifying data: One of several admissions to [facility] for this 57 y/o AA female seeking detox treatment,on , for cocaine and alcohol dependence.Patient is ,a mother of three,homeless (penitentiary),unemployed and supported on food stamps (self-report). Substance Abuse History: Confirmed by patient in this interview.Details in current [facility] report : Smoking history: Current some day smoker. Have you smoked in the past 12 months: Yes. Aproximately how many cigarettes per day: 2. Cigars Per Day: 0. Hx Chewing Tobacco Use: No. Initiated information on smoking cessation: Yes. 'Breaking Loose' booklet given: 12/12/17. - Substance & Tx. History. Hx Alcohol Use: Yes. Hx Substance Use: Yes. Substance Use Type : Alcohol, Cocaine. Hx Substance Use Treatment: Yes ([facility]). - Substances Abused. Alcohol. Route: Oral. Frequency: Daily. Amount used: LIQUOR- 1 PINT, BEER- 1 SIX PACK. Age of first use: 10. Date of Last Use: 12/11/17. Crack. Route: Smoking. Frequency: 1-2 times per week. Amount used: 5 BAGS. Age of first use: 28. Date of Last Use: 12/11/17 Medical History: Positive PPD (as per records),bronchial asthma,obesity, hypertension,GERD,arthritis,anemia and a remote history of orthosurgery ( fracture of right ankle). Psychiatric History: No history of psychiatric hospitalizations.Diagnosed with Bipolar Disorder (as per self-report).No longer in active OPD care.Ms Domínguez reports that she stopped going to the [facility] program.Used to be prescribed seroquel + depakote + ambien (Dr Brown).No history of suicide attempts. Physical/Sexual Abuse/Trauma History: No history. Additional Comment: Urine Drug Screen Results: KULWINDER-Cocaine, TCA-Tricyclic Antidepressant.Noted. Mental Status Exam - Mental Status Exam Alert and Oriented to: Time, Place, Person Cognitive Function: Good Patient Appearance: Well Groomed (bese) Mood: Nervous, Irritable Affect: Mood Congruent Patient Behavior: Cooperative Speech Pattern: Clear Voice Loudness: Normal Thought Process: Intact, Goal Oriented Thought Disorder: Not Present Hallucinations: Denies Suicidal Ideation: Denies Homicidal Ideation: Denies Insight/Judgement: Poor Sleep: Poorly (wants ambien), Difficulty falling asleep Muscle strength/Tone: Normal (no compaint of rigidity or weakness) Gait/Station: Normal Psychiatric Findings - Problem List ([facility] 1, 2,3) (1) Alcohol dependence with uncomplicated withdrawal Current Visit: Yes Status: Acute (2) Cocaine dependence, uncomplicated Current Visit: Yes Status: Acute (3) Nicotine dependence Current Visit: Yes Status: Acute Qualifiers: Nicotine product type: cigarettes Substance use status: uncomplicated Qualified Code(s): F17.210 - Nicotine dependence, cigarettes, uncomplicated (4) Substance induced mood disorder Current Visit: Yes Status: Acute (5) Schizoaffective disorder Current Visit: No Status: Chronic Qualifiers: Comment: As per history.No adherence to OPD care. (6) Insomnia Current Visit: Yes Status: Acute - Initial Treatment Plan Initial Treatment Plan: Psychoeducation.Detoxification.Sleep hygiene.Patient states that she has NOT taken depakote and seroquel " for quite a while ", declines to resume these medications and insists on staying on ambien at bedtime.Advised to reconsider.Ms Domínguez maintain her decision to abstain from mood stabilizers.Ambien 5 mg po hs prn.Patient is made aware of the risk of parasomnias (sleep-walking).Observation.
[2017-12-13] MEDS ORDERED: ZOLPIDEM TARTRATE 5 MG TABLET PO PRN (17:08)
[2017-12-13] MEDS: THIAMINE HCL 100 MG TABLET (FP) PO SCH (22:28)
[2017-12-13] MEDS: MONTELUKAST NA 10 MG TABLET PO SCH (22:28)
[2017-12-13] MEDS: SULFAMETHOXAZOLE/TRIMETHOPRIM 800MG/160MG D.S. TABLET PO SCH (22:28)
[2017-12-13] MEDS: ZOLPIDEM TARTRATE 5 MG TABLET PO PRN (22:31)
[2017-12-13] MEDS: LIDOCAINE PATCH REMOVAL MC SCH (22:31)
[2017-12-14] MEDS: chlordiazePOXIDE HCL 25 MG CAPSULE PO SCH ×3 (07:45→17:37)
[2017-12-14] MEDS ORDERED: PETROLATUM, WHITE 30 GM TUBE TP PRN (10:39)
[2017-12-14] MEDS ORDERED: ALBUTEROL SO4 0.083% IH SOL 2.5 MG/3 ML VIAL.NEB. NEB PRN (10:40)
--- NOTE | 2017-12-14 10:45 | PN ---
S CIWA - CIWA Score Nausea/Vomitin-No Nausea/No Vomiting Muscle Tremors: 3 Anxiety: 3 Agitation: 3 Paroxysmal Sweats: 1-Minimal Palms Moist Orientation: 0-Oriented Tacttile Disturbances: 1-Very Mild Itch/Numbness Auditory Disturbances: 0-None Visual Disturbances: 0-None Headache: 1-Very Mild CIWA-Ar Total Score: 12 BHS Progress Note (SOAP) Subjective: gi distress dry skin sweat tremor anxiety i want blue symbicort denies trouble breathing refuse nebulizer Objective: 12/14/17 10:42 Vital Signs Temperature 99.5 F 12/14/17 06:00 Pulse Rate 87 12/14/17 06:00 Respiratory Rate 18 12/14/17 06:00 Blood Pressure 136/77 12/14/17 06:00 O2 Sat by Pulse Oximetry (%) Laboratory Last Values WBC 4.2 K/mm3 (4.0-10.0) 12/13/17 08:00 RBC 3.29 M/mm3 (3.60-5.2) L 12/13/17 08:00 Hgb 10.8 GM/dL (10.7-15.3) 12/13/17 08:00 Hct 32.0 % (32.4-45.2) L 12/13/17 08:00 MCV 97.5 fl (80-96) H 12/13/17 08:00 MCH 32.9 pg (25.7-33.7) 12/13/17 08:00 MCHC 33.8 g/dl (32.0-36.0) 12/13/17 08:00 RDW 15.5 % (11.6-15.6) 12/13/17 08:00 Plt Count 241 K/MM3 (134-434) D 12/13/17 08:00 MPV 8.0 fl (7.5-11.1) 12/13/17 08:00 Sodium 144 mmol/L (136-145) 12/13/17 08:00 Potassium 3.6 mmol/L (3.5-5.1) 12/13/17 08:00 Chloride 110 mmol/L (98-107) H 12/13/17 08:00 Carbon Dioxide 25 mmol/L (21-32) 12/13/17 08:00 Anion Gap 9 (8-16) 12/13/17 08:00 BUN 16 mg/dL (7-18) 12/13/17 08:00 Creatinine 0.9 mg/dL (0.55-1.02) 12/13/17 08:00 Creat Clearance w eGFR > 60 (>60) 12/13/17 08:00 Random Glucose 109 mg/dL (74-106) H 12/13/17 08:00 Calcium 8.2 mg/dL (8.5-10.1) L 12/13/17 08:00 Total Bilirubin 0.2 mg/dL (0.2-1.0) D 12/13/17 08:00 AST 18 U/L (15-37) 12/13/17 08:00 ALT 25 U/L (12-78) 12/13/17 08:00 Alkaline Phosphatase 73 U/L (45-117) 12/13/17 08:00 Total Protein 5.9 g/dl (6.4-8.2) L 12/13/17 08:00 Albumin 2.9 g/dl (3.4-5.0) L 12/13/17 08:00 Urine Color Ltyellow 12/13/17 00:06 Urine Appearance Slcloudy 12/13/17 00:06 Urine pH 5.0 (5.0-8.0) 12/13/17 00:06 Ur Specific [place] 1.012 (1.001-1.035) 12/13/17 00:06 Urine Protein Negative (NEGATIVE) 12/13/17 00:06 Urine Glucose (UA) Negative (NEGATIVE) 12/13/17 00:06 Urine Ketones Negative (NEGATIVE) 12/13/17 00:06 Urine Blood Negative (NEGATIVE) 12/13/17 00:06 Urine Nitrite Positive (NEGATIVE) 12/13/17 00:06 Urine Bilirubin Negative (<2.0 mg/dL) 12/13/17 00:06 Urine Urobilinogen Negative mg/dL (0.2-1.0) 12/13/17 00:06 Ur Leukocyte Esterase Trace (NEGATIVE) 12/13/17 00:06 Urine WBC (Auto) 14 /hpf (3-5) 12/13/17 00:06 Urine RBC (Auto) 3 /hpf (0-3) 12/13/17 00:06 Ur Epithelial Cells Few /HPF (FEW) 12/13/17 00:06 Amorphous Urates Moderate /hpf (NONE SEEN) 12/13/17 00:06 Urine Bacteria Many /hpf (NONE SEEN) 12/13/17 00:06 Urine Mucus Rare 12/13/17 00:06 RPR Titer Nonreactive (NONREACTIVE) 12/13/17 08:00 lab noted repeat ua 12/14/17 10:44 no shortness of breath 12/14/17 10:45 [id number]$ Assessment: 12/14/17 10:43 withdrawal sx gerd dry skin 12/14/17 10:44 asthma Plan: continue detox protonix A+D oint case discuss with nurse regarding blue symbicort unable to locate blue symbicort today will discuss with part care pharmacist
[2017-12-14] MEDS: ASPIRIN 81 MG CHEWABLE TABLETS PO SCH (10:57)
[2017-12-14] MEDS: SULFAMETHOXAZOLE/TRIMETHOPRIM 800MG/160MG D.S. TABLET PO SCH ×2 (10:58→22:31)
[2017-12-14] MEDS: HYDROCHLOROTHIAZIDE 12.5 MG CAPSULE (FP) PO SCH (10:58)
[2017-12-14] MEDS: amLODIPine BESYLATE 5 MG TABLET (FP) PO SCH (10:59)
[2017-12-14] MEDS: PRENATAL VITAMINS W/ FOLIC ACID TABLET (FP) PO SCH (10:59)
[2017-12-14] MEDS: BUDESONIDE/FORMETEROL FUMARATE 80/4.5 mcg INHALER IH SCH (11:02)
[2017-12-14] MEDS: LIDOCAINE 5% TOPICAL PATCH TP SCH (11:29)
[2017-12-14] MEDS: PANTOPRAZOLE 20 MG TABLET (FP) PO SCH (11:41)
[2017-12-14] MEDS: chlordiazePOXIDE 5 MG CAPSULE PO SCH (22:31)
[2017-12-14] MEDS: MONTELUKAST NA 10 MG TABLET PO SCH (22:31)
[2017-12-14] MEDS: THIAMINE HCL 100 MG TABLET (FP) PO SCH (22:31)
[2017-12-14] MEDS: CYCLOBENZAPRINE HCL 5 MG TABLET PO PRN (22:34)
[2017-12-14] MEDS: ZOLPIDEM TARTRATE 5 MG TABLET PO PRN (22:34)
[2017-12-14] MEDS: ACETAMINOPHEN 325 MG TABLET (FP) PO PRN (22:35)
[2017-12-14] MEDS: BUDESONIDE/FORMETEROL FUMARATE 160/4.5 mcg INHALER IH SCH (22:36)
[2017-12-14] MEDS: LIDOCAINE PATCH REMOVAL MC SCH (22:37)
[2017-12-15] MEDS: ACETAMINOPHEN 325 MG TABLET (FP) PO PRN ×2 (03:20→22:23)
[2017-12-15] MEDS: chlordiazePOXIDE 5 MG CAPSULE PO SCH ×3 (06:00→16:36)
--- NOTE | 2017-12-15 10:23 | PN ---
BHS Progress Note (SOAP) Subjective: feeling better, no tremor less sweat tolerates food and fluid well sleep throughout the night Objective: 12/15/17 10:24 Vital Signs Temperature 97.9 F 12/14/17 22:46 Pulse Rate 95 H 12/15/17 10:20 Respiratory Rate 18 12/15/17 10:20 Blood Pressure 106/69 12/15/17 10:20 O2 Sat by Pulse Oximetry (%) Laboratory Last Values WBC 4.2 K/mm3 (4.0-10.0) 12/13/17 08:00 RBC 3.29 M/mm3 (3.60-5.2) L 12/13/17 08:00 Hgb 10.8 GM/dL (10.7-15.3) 12/13/17 08:00 Hct 32.0 % (32.4-45.2) L 12/13/17 08:00 MCV 97.5 fl (80-96) H 12/13/17 08:00 MCH 32.9 pg (25.7-33.7) 12/13/17 08:00 MCHC 33.8 g/dl (32.0-36.0) 12/13/17 08:00 RDW 15.5 % (11.6-15.6) 12/13/17 08:00 Plt Count 241 K/MM3 (134-434) D 12/13/17 08:00 MPV 8.0 fl (7.5-11.1) 12/13/17 08:00 Sodium 144 mmol/L (136-145) 12/13/17 08:00 Potassium 3.6 mmol/L (3.5-5.1) 12/13/17 08:00 Chloride 110 mmol/L (98-107) H 12/13/17 08:00 Carbon Dioxide 25 mmol/L (21-32) 12/13/17 08:00 Anion Gap 9 (8-16) 12/13/17 08:00 BUN 16 mg/dL (7-18) 12/13/17 08:00 Creatinine 0.9 mg/dL (0.55-1.02) 12/13/17 08:00 Creat Clearance w eGFR > 60 (>60) 12/13/17 08:00 Random Glucose 109 mg/dL (74-106) H 12/13/17 08:00 Calcium 8.2 mg/dL (8.5-10.1) L 12/13/17 08:00 Total Bilirubin 0.2 mg/dL (0.2-1.0) D 12/13/17 08:00 AST 18 U/L (15-37) 12/13/17 08:00 ALT 25 U/L (12-78) 12/13/17 08:00 Alkaline Phosphatase 73 U/L (45-117) 12/13/17 08:00 Total Protein 5.9 g/dl (6.4-8.2) L 12/13/17 08:00 Albumin 2.9 g/dl (3.4-5.0) L 12/13/17 08:00 Urine Color Ltyellow 12/13/17 00:06 Urine Appearance Slcloudy 12/13/17 00:06 Urine pH 5.0 (5.0-8.0) 12/13/17 00:06 Ur Specific [place] 1.012 (1.001-1.035) 12/13/17 00:06 Urine Protein Negative (NEGATIVE) 12/13/17 00:06 Urine Glucose (UA) Negative (NEGATIVE) 12/13/17 00:06 Urine Ketones Negative (NEGATIVE) 12/13/17 00:06 Urine Blood Negative (NEGATIVE) 12/13/17 00:06 Urine Nitrite Positive (NEGATIVE) 12/13/17 00:06 Urine Bilirubin Negative (<2.0 mg/dL) 12/13/17 00:06 Urine Urobilinogen Negative mg/dL (0.2-1.0) 12/13/17 00:06 Ur Leukocyte Esterase Trace (NEGATIVE) 12/13/17 00:06 Urine WBC (Auto) 14 /hpf (3-5) 12/13/17 00:06 Urine RBC (Auto) 3 /hpf (0-3) 12/13/17 00:06 Ur Epithelial Cells Few /HPF (FEW) 12/13/17 00:06 Amorphous Urates Moderate /hpf (NONE SEEN) 12/13/17 00:06 Urine Bacteria Many /hpf (NONE SEEN) 12/13/17 00:06 Urine Mucus Rare 12/13/17 00:06 RPR Titer Nonreactive (NONREACTIVE) 12/13/17 08:00 12/15/17 10:27 lab noted gu asymptomatic Assessment: 12/15/17 10:28 mild withdrawal sx Plan: medically supervised detox
[2017-12-15] MEDS: BUDESONIDE/FORMETEROL FUMARATE 160/4.5 mcg INHALER IH SCH ×2 (10:26→22:24)
[2017-12-15] MEDS: SULFAMETHOXAZOLE/TRIMETHOPRIM 800MG/160MG D.S. TABLET PO SCH ×2 (10:27→22:20)
[2017-12-15] MEDS: ASPIRIN 81 MG CHEWABLE TABLETS PO SCH (10:28)
[2017-12-15] MEDS: CYCLOBENZAPRINE HCL 5 MG TABLET PO PRN ×2 (10:28→22:23)
[2017-12-15] MEDS: amLODIPine BESYLATE 5 MG TABLET (FP) PO SCH (10:28)
[2017-12-15] MEDS: LIDOCAINE 5% TOPICAL PATCH TP SCH (10:28)
[2017-12-15] MEDS: HYDROCHLOROTHIAZIDE 12.5 MG CAPSULE (FP) PO SCH (10:28)
[2017-12-15] MEDS: PANTOPRAZOLE 20 MG TABLET (FP) PO SCH (10:28)
[2017-12-15] MEDS: PRENATAL VITAMINS W/ FOLIC ACID TABLET (FP) PO SCH (10:28)
[2017-12-15] MEDS: chlordiazePOXIDE HCL 10 MG CAPSULE PO SCH (22:19)
[2017-12-15] MEDS: THIAMINE HCL 100 MG TABLET (FP) PO SCH (22:19)
[2017-12-15] MEDS: MONTELUKAST NA 10 MG TABLET PO SCH (22:20)
[2017-12-15] MEDS: ZOLPIDEM TARTRATE 5 MG TABLET PO PRN (22:23)
[2017-12-15] MEDS: LIDOCAINE PATCH REMOVAL MC SCH (22:51)
[2017-12-16] MEDS ORDERED: hydrOXYzine PAMOATE 50 MG CAPSULE (FP) PO ONE (02:12)
[2017-12-16] MEDS: ACETAMINOPHEN 325 MG TABLET (FP) PO PRN (02:13)
[2017-12-16] MEDS: chlordiazePOXIDE HCL 10 MG CAPSULE PO SCH ×2 (07:19→10:30)
--- NOTE | 2017-12-16 08:36 | DS ---
[facility] Detox Discharge Summary Admission Date: 12/12/17 Discharge Date: 12/16/17 - History Present History: Alcohol Dependence Additional Comments: patient admitted for alcohol detox completed detox regimen tolerated well patient is alert oriented x 3 no acute distress patient agrees to [facility] in patient chemical rehab for aftercare patient informed last dose bactrim 12/18/17 for uti patient achknowledged personal hygiene uti prevention measure - Physical Exam Results Vital Signs: Vital Signs Temperature 97.7 F 12/16/17 06:28 Pulse Rate 87 12/16/17 06:28 Respiratory Rate 18 12/16/17 06:28 Blood Pressure 114/63 12/16/17 06:28 O2 Sat by Pulse Oximetry (%) Pertinent Admission Physical Exam Findings: withdrawal sx Vital Signs Temperature 97.7 F 12/16/17 06:28 Pulse Rate 87 12/16/17 06:28 Respiratory Rate 18 12/16/17 06:28 Blood Pressure 114/63 12/16/17 06:28 O2 Sat by Pulse Oximetry (%) Laboratory Last Values WBC 4.2 K/mm3 (4.0-10.0) 12/13/17 08:00 RBC 3.29 M/mm3 (3.60-5.2) L 12/13/17 08:00 Hgb 10.8 GM/dL (10.7-15.3) 12/13/17 08:00 Hct 32.0 % (32.4-45.2) L 12/13/17 08:00 MCV 97.5 fl (80-96) H 12/13/17 08:00 MCH 32.9 pg (25.7-33.7) 12/13/17 08:00 MCHC 33.8 g/dl (32.0-36.0) 12/13/17 08:00 RDW 15.5 % (11.6-15.6) 12/13/17 08:00 Plt Count 241 K/MM3 (134-434) D 12/13/17 08:00 MPV 8.0 fl (7.5-11.1) 12/13/17 08:00 Sodium 144 mmol/L (136-145) 12/13/17 08:00 Potassium 3.6 mmol/L (3.5-5.1) 12/13/17 08:00 Chloride 110 mmol/L (98-107) H 12/13/17 08:00 Carbon Dioxide 25 mmol/L (21-32) 12/13/17 08:00 Anion Gap 9 (8-16) 12/13/17 08:00 BUN 16 mg/dL (7-18) 12/13/17 08:00 Creatinine 0.9 mg/dL (0.55-1.02) 12/13/17 08:00 Creat Clearance w eGFR > 60 (>60) 12/13/17 08:00 Random Glucose 109 mg/dL (74-106) H 12/13/17 08:00 Calcium 8.2 mg/dL (8.5-10.1) L 12/13/17 08:00 Total Bilirubin 0.2 mg/dL (0.2-1.0) D 12/13/17 08:00 AST 18 U/L (15-37) 12/13/17 08:00 ALT 25 U/L (12-78) 12/13/17 08:00 Alkaline Phosphatase 73 U/L (45-117) 12/13/17 08:00 Total Protein 5.9 g/dl (6.4-8.2) L 12/13/17 08:00 Albumin 2.9 g/dl (3.4-5.0) L 12/13/17 08:00 Urine Color Ltyellow 12/13/17 00:06 Urine Appearance Slcloudy 12/13/17 00:06 Urine pH 5.0 (5.0-8.0) 12/13/17 00:06 Ur Specific [place] 1.012 (1.001-1.035) 12/13/17 00:06 Urine Protein Negative (NEGATIVE) 12/13/17 00:06 Urine Glucose (UA) Negative (NEGATIVE) 12/13/17 00:06 Urine Ketones Negative (NEGATIVE) 12/13/17 00:06 Urine Blood Negative (NEGATIVE) 12/13/17 00:06 Urine Nitrite Positive (NEGATIVE) 12/13/17 00:06 Urine Bilirubin Negative (<2.0 mg/dL) 12/13/17 00:06 Urine Urobilinogen Negative mg/dL (0.2-1.0) 12/13/17 00:06 Ur Leukocyte Esterase Trace (NEGATIVE) 12/13/17 00:06 Urine WBC (Auto) 14 /hpf (3-5) 12/13/17 00:06 Urine RBC (Auto) 3 /hpf (0-3) 12/13/17 00:06 Ur Epithelial Cells Few /HPF (FEW) 12/13/17 00:06 Amorphous Urates Moderate /hpf (NONE SEEN) 12/13/17 00:06 Urine Bacteria Many /hpf (NONE SEEN) 12/13/17 00:06 Urine Mucus Rare 12/13/17 00:06 RPR Titer Nonreactive (NONREACTIVE) 12/13/17 08:00 lab noted uti treated with bactrim last dose 12/18/17 - Treatment Hospital Course: Detox Protocol Followed, Detoxed Safely, Responded well, Discharged Condition Good, Rehab Referral Accepted [facility] - Medication Discharge Medications: Ambulatory Orders Aspirin [ASA -] 81 mg PO DAILY #30 mg 10/08/17 Fluticasone/Salmeterol [Advair 250-50 Diskus] 1 each IH BID #1 disk.w.dev Risperidone [Risperdal -] 1 mg PO HS #30 tablet 10/08/17 Hydrochlorothiazide [Hctz -] 12.5 mg PO DAILY #30 cap 11/13/17 Montelukast Na [Singulair -] 10 mg PO HS #30 mg 11/13/17 Chlorhexidine Gluconate [Peridex -] 15 ml MM BID 30 Days #1 cup 11/14/17 Montelukast Na [Singulair -] 10 mg PO HS #30 tablet 11/14/17 Sulfamethoxazole/Trimethoprim [Bactrim DS -] 1 each PO BID #5 tablet 11/14/17 Vits A and D/White Pet/Lanolin [A and D Ointment] 1 gm TP 12/14/17 Albuterol Sulfate Inhaler - [Ventolin HFA Inhaler -] 2 inh IH Q4H PRN #1 inhaler 12/15/17 Albuterol Sulfate Inhaler - [Ventolin HFA Inhaler -] 2 puff IH Q4H PRN #1 inhaler 12/15/17 Amlodipine Besylate [Norvasc -] 5 mg PO DAILY #30 tablet 12/15/17 Pantoprazole Sodium [Protonix -] 20 mg PO DAILY #14 tablet.ec 12/15/17 Sulfamethoxazole/Trimethoprim [Bactrim DS -] 1 each PO BID #7 tablet 12/16/17 - Diagnosis (1) Alcohol dependence with uncomplicated withdrawal Current Visit: Yes Status: Acute (2) Nicotine dependence Current Visit: Yes Status: Acute Qualifiers: Nicotine product type: cigarettes Substance use status: in withdrawal Qualified Code(s): F17.213 - Nicotine dependence, cigarettes, with withdrawal (3) Asthma Current Visit: Yes Status: Chronic Qualifiers: Asthma severity: mild Asthma persistence: intermittent Asthma complication type: uncomplicated Qualified Code(s): J45.20 - Mild intermittent asthma, uncomplicated (4) GERD (gastroesophageal reflux disease) Current Visit: Yes Status: Chronic Qualifiers: Esophagitis presence: without esophagitis Qualified Code(s): K21.9 - Gastro -esophageal reflux disease without esophagitis (5) Hypertension Current Visit: Yes Status: Chronic Qualifiers: Hypertension type: essential hypertension Qualified Code(s): I10 - Essential (primary) hypertension (6) Schizoaffective disorder Current Visit: Yes Status: Suspected Qualifiers: Schizoaffective disorder type: other (7) UTI (urinary tract infection) Current Visit: Yes Status: Acute Qualifiers: Urinary tract infection type: site unspecified Hematuria presence: without hematuria Qualified Code(s): N39.0 - Urinary tract infection, site not specified - AMA Did Patient Leave Against Medical Advice: No
[2017-12-16] MEDS: PANTOPRAZOLE 20 MG TABLET (FP) PO SCH (10:29)
[2017-12-16] MEDS: BUDESONIDE/FORMETEROL FUMARATE 160/4.5 mcg INHALER IH SCH (10:29)
[2017-12-16] MEDS: HYDROCHLOROTHIAZIDE 12.5 MG CAPSULE (FP) PO SCH (10:29)
[2017-12-16] MEDS: SULFAMETHOXAZOLE/TRIMETHOPRIM 800MG/160MG D.S. TABLET PO SCH (10:29)
[2017-12-16] MEDS: ASPIRIN 81 MG CHEWABLE TABLETS PO SCH (10:29)
[2017-12-16] MEDS: amLODIPine BESYLATE 5 MG TABLET (FP) PO SCH (10:29)
[2017-12-16] MEDS: PRENATAL VITAMINS W/ FOLIC ACID TABLET (FP) PO SCH (10:29)
[2017-12-16] MEDS: LIDOCAINE 5% TOPICAL PATCH TP SCH (10:30)
[2017-12-16 10:49] VITALS: BP 135/84; PULSE 104; TEMP 97.2
== END 2017-12-16 12:04 | disposition home or self-care (01) | DRG 774 ==
LOC: YASAS 13:01 → Y6N 19:41
PROVIDERS: ADMIT Internal Medicine; ATTEND Internal Medicine
PROC: HZ2ZZZZ Detoxification Services for Substance Abuse Treatment (ICD-10-PCS; principal; 2017-12-12)
DX: F10.230 Alcohol dependence with withdrawal, uncomplicated (principal); F14.20 Cocaine dependence, uncomplicated; F17.210 Nicotine dependence, cigarettes, uncomplicated; F19.24 Other psychoactive substance dependence with psychoactive substance-induced mood disorder; F25.9 Schizoaffective disorder, unspecified; G47.00 Insomnia, unspecified; F31.9 Bipolar disorder, unspecified; J45.909 Unspecified asthma, uncomplicated; I10 Essential (primary) hypertension; K21.9 Gastro-esophageal reflux disease without esophagitis; N39.0 Urinary tract infection, site not specified; Z86.2 Personal history of diseases of the blood and blood-forming organs and certain disorders involving the immune mechanism
CPT/HCPCS: 36415; 80053; 81003; 81015; 85027; 86593; 93005; 93010

== ENCOUNTER 2018-02-18 10:33 | Inpatient (IN) | payer OTHER ==
[2018-02-18 11:01] VITALS: BMI 34.0
--- NOTE | 2018-02-18 11:25 | HP ---
CIWA Score - CIWA Score Nausea/Vomitin Muscle Tremors: 1-None Visible, but [place] Anxiety: 2 Agitation: 0-Normal Activity Paroxysmal Sweats: 2 Orientation: 0-Oriented Tacttile Disturbances: 2-Mild Itch/Numbness/Burn Auditory Disturbances: 0-None Visual Disturbances: 0-None Headache: 3-Moderate CIWA-Ar Total Score: 12 Admission ROS BHS - HPI Chief Complaint: Patient presents ETOH withdrawal symptoms Allergies/Adverse Reactions: Allergies Allergy/AdvReac Type Severity Reaction Status Date / Time mushroom Allergy Severe Rash Verified 02/18/18 11:03 No Known Drug Allergies Allergy Verified 02/18/18 11:03 salmon Allergy Severe Difficulty Uncoded 02/18/18 11:03 Breathing History of Present Illness: Patient presents with ETOH withdrawal symptoms. Patient started drinking at age 12. Drinks up to 2 pints of alcohol daily. Also smokes crack/cocaine since age 28. Amount patient smokes varies. Patient last drank and smoked was earlier this morning. Patient denies history of seizures. Denies SI/HI and suicide attempts. Last detox was here at [facility] in 12/2017. Patient relapsed one day after discharge. PMH includes asthma and HTN. Patient states she takes medication daily. - Ebola screening Have you traveled outside of the country in the last 21 days: No (N) Have you had contact with anyone from an Ebola affected area: No Have you been sick,other than usual withdrawal symptoms: No Do you have a fever: No - Review of Systems Constitutional: Chills, Night Sweats, Changes in sleep EENT: reports: Recent change in vision Respiratory: reports: No Symptoms reported Cardiac: reports: No Symptoms Reported GI: reports: Diarrhea, Nausea, Poor Fluid Intake, Abdominal cramping : reports: No Symptoms Reported Musculoskeletal: reports: Back Pain, Muscle Pain Integumentary: reports: No Symptoms Reported, Pruritus, Sweating Neuro: reports: Headache, Numbness, Tremors Endocrine: reports: No Symptoms Reported Hematology: reports: No Symptoms Reported Psychiatric: reports: Orientated x3, Anxious, Depressed Patient History - Patient Medical History Hx Anemia: Yes (HX/O) Hx Asthma: Yes Hx Chronic Obstructive Pulmonary Disease (COPD): No Hx Cancer: No Hx Cardiac Disorders: No Hx Congestive Heart Failure: No Hx Hypertension: Yes (on meds.) Hx Hypercholesterolemia: No Hx Pacemaker: No HX Cerebrovascular Accident: No Hx Seizures: No Hx Dementia: No Hx Diabetes: No Hx Gastrointestinal Disorders: Yes (GERD) Hx Liver Disease: No Hx Genitourinary Disorders: No Hx Sexually Transmitted Disorders: No Hx Renal Disease (ESRD): No Hx Thyroid Disease: No Hx Human Immunodeficiency Virus (HIV): No Hx Hepatitis C: No Hx Depression: Yes Hx Suicide Attempt: No Hx Bipolar Disorder: Yes Hx Schizophrenia: No - Patient Surgical History Past Surgical History: Yes Hx Neurologic Surgery: No Hx Cataract Extraction: No Hx Cardiac Surgery: No Hx Lung Surgery: No Hx Breast Surgery: No Hx Breast Biopsy: No Hx Abdominal Surgery: No Hx Appendectomy: No Hx Cholecystectomy: No Hx Genitourinary Surgery: No Hx Section: Yes (x2) Hx Orthopedic Surgery: (right ankle fx many yrs ago) Hx Hysterectomy: No Anesthesia Reaction: No - PPD History Previous Implant?: Yes Documented Results: Positive w/proof Implanted On Prior [facility] Admission?: No Results: NEG CXR 11/2017 PPD to be Administered?: No - Reproductive History Last Menstrual Period: 05/08/90 Patient : No - Smoking Cessation Smoking history: Current some day smoker Have you smoked in the past 12 months: Yes Aproximately how many cigarettes per day: 2 Cigars Per Day: 0 Hx Chewing Tobacco Use: No Initiated information on smoking cessation: Yes 'Breaking Loose' booklet given: 02/18/18 - Substance & Tx. History Hx Alcohol Use: Yes Hx Substance Use: Yes Substance Use Type: Alcohol, Cocaine Hx Substance Use Treatment: Yes - Substances Abused Alcohol Route: Oral Frequency: Daily Amount used: 1 PINT [place]ODKA Age of first use: 28 Date of Last Use: 02/17/18 Crack Route: Smoking Frequency: Daily Amount used: $100 Age of first use: 28 Date of Last Use: 02/17/18 Family Disease History - Family Disease History Family Disease History: Heart Disease: Father (), Mother (), Other: Brother (only child) Admission Physical Exam BHS - Vital Signs Vital Signs: Vital Signs - 24 hr 02/18/18 10:51 Temperature 96 F L Pulse Rate 102 H Respiratory 20 Rate Blood Pressure 158/91 - Physical General Appearance: Yes: Appropriately Dressed, Disheveled, Tremorous, Sweating , Anxious HEENTM: Yes: EOMI, Hearing grossly Normal, Normocephalic, COLIN, Pharynx Normal Respiratory: Yes: Chest Non-Tender, Lungs Clear, Normal Breath Sounds, No Respiratory Distress, No Accessory Muscle Use Neck: Yes: No masses,lesions,Nodules, Supple Breast: Yes: Breast Exam Deferred Cardiology: Yes: Regular Rhythm, Regular Rate, S1, S2 Abdominal: Yes: Normal Bowel Sounds, Non Tender, Soft Genitourinary: Yes: Within Normal Limits Back: Yes: Muscle Spasm Musculoskeletal: Yes: full range of Motion, Back pain, Muscle Pain Extremities: Yes: Normal Inspection, Normal Range of Motion, Non-Tender, Tremors Neurological: Yes: emergency veterinarian II-XII NML intact, Fully Oriented, Alert, Numbness, Depressed Affect Integumentary: Yes: Normal Color, Warm, Moist, Other (+pruritis from mosquito bite) Lymphatic: Yes: Within Normal Limits Cleared for Admission [facility] - Detox or Rehab [facility] Level of Care: Medically Managed Detox Regimen/Protocol: Librium [facility] Breath Alcohol Content Breath Alcohol Content: 0 Urine Pregancy Test - Result Urine Test Results: Negative- NO Line Present Urine Drug Screen - Results Drug Screen Negative: No Urine Drug Screen Results: KULWINDER-Cocaine
[2018-02-18] MEDS ORDERED: P-EPHED 60MG/TRIPROLIDI 2.5MG TABLET PO PRN (11:34)
[2018-02-18] MEDS ORDERED: MAG HYDROX/AL HYDROX/SIMETH 30 ML UNIT-DOSE CUP PO PRN (11:34)
[2018-02-18] MEDS ORDERED: LOPERAMIDE HCL 2 MG CAPSULE PO PRN (11:34)
[2018-02-18] MEDS ORDERED: MENTHOL/PHENOL 1 EACH UD MM PRN (11:34)
[2018-02-18] MEDS ORDERED: guaiFENesin/D-METHORPHAN HB 10 ML UNIT-DOSE CUPS PO PRN (11:34)
[2018-02-18] MEDS ORDERED: MAGNESIUM CITRATE 300 ML BOTTLE PO PRN (11:34)
[2018-02-18] MEDS ORDERED: IBUPROFEN 400 MG TABLET (FP) PO PRN (11:34)
[2018-02-18] MEDS ORDERED: NICOTINE POLACRILEX 4 MG GUM BUC PRN (11:34)
[2018-02-18] MEDS ORDERED: ALBUTEROL SO4 18 GM HFA INHALER IH PRN (11:37)
[2018-02-18] MEDS ORDERED: chlordiazePOXIDE HCL 25 MG CAPSULE PO PRN (11:38)
[2018-02-18] MEDS ORDERED: chlordiazePOXIDE HCL 25 MG CAPSULE PO ONE (12:45)
[2018-02-18] MEDS: chlordiazePOXIDE HCL 25 MG CAPSULE PO SCH ×2 (18:05→22:30)
[2018-02-18] MEDS ORDERED: MELATONIN 5 MG TABLETS PO PRN (22:00)
[2018-02-18] MEDS: MONTELUKAST NA 10 MG TABLET PO SCH (22:30)
[2018-02-18] MEDS: THIAMINE HCL 100 MG TABLET (FP) PO SCH (22:30)
[2018-02-18] MEDS: ACETAMINOPHEN 325 MG TABLET (FP) PO PRN (22:31)
[2018-02-19 00:11] LABS: URINE APPEARANCE CLOUDY; URINE BILIRUBIN NEGATIVE (<2.0 mg/dL); URINE COLOR YELLOW; URINE GLUCOSE (UA) NEGATIVE (NEGATIVE); URINE KETONE NEGATIVE (NEGATIVE); URINE NITRITE POSITIVE (NEGATIVE); URINE UROBILINOGEN NEGATIVE mg/dL (0.2-1.0)
[2018-02-19 00:12] LABS: URINE LEUK ESTERASE 3+ (NEGATIVE); URINE PROTEIN 1+ (NEGATIVE)
[2018-02-19 00:14] LABS: EPI CELLS RARE /HPF (FEW); URINE BACTERIA RARE /hpf (NONE SEEN); URINE MUCUS RARE
[2018-02-19] MEDS: chlordiazePOXIDE HCL 25 MG CAPSULE PO SCH ×4 (08:59→22:52)
[2018-02-19 10:12] LABS: HEMATOCRIT 40.5 % (32.4-45.2); HEMOGLOBIN 13.4 GM/dL (10.7-15.3); MCH 32.7 pg (25.7-33.7); MCHC 33.1 g/dl (32.0-36.0); MEAN CELL VOLUME 98.7 fl (80-96); MEAN PLT VOLUME 8.2 fl (7.5-11.1); PLATELET COUNT 273 K/MM3 (134-434); RDW 15.5 % (11.6-15.6); WHITE BLOOD COUNT 4.3 K/mm3 (4.0-10.0)
--- NOTE | 2018-02-19 10:48 | PN ---
[facility] CIWA - CIWA Score Nausea/Vomitin-Mild Nausea/No Vomiting Muscle Tremors: 3 Anxiety: 2 Agitation: 3 Paroxysmal Sweats: 1-Minimal Palms Moist Orientation: 0-Oriented Tacttile Disturbances: 0-None Auditory Disturbances: 0-None Visual Disturbances: 0-None Headache: 0-None Present CIWA-Ar Total Score: 10 S Progress Note (SOAP) Subjective: tremor gi distress sweat anxiety irritable Objective: 02/19/18 10:50 Vital Signs Temperature 97.3 F L 02/19/18 09:22 Pulse Rate 85 02/19/18 09:22 Respiratory Rate 18 02/19/18 09:22 Blood Pressure 97/57 02/19/18 09:22 O2 Sat by Pulse Oximetry (%) Laboratory Last Values WBC 4.3 K/mm3 (4.0-10.0) 02/19/18 08:50 RBC 4.10 M/mm3 (3.60-5.2) D 02/19/18 08:50 Hgb 13.4 GM/dL (10.7-15.3) D 02/19/18 08:50 Hct 40.5 % (32.4-45.2) D 02/19/18 08:50 MCV 98.7 fl (80-96) H 02/19/18 08:50 MCH 32.7 pg (25.7-33.7) 02/19/18 08:50 MCHC 33.1 g/dl (32.0-36.0) 02/19/18 08:50 RDW 15.5 % (11.6-15.6) 02/19/18 08:50 Plt Count 273 K/MM3 (134-434) 02/19/18 08:50 MPV 8.2 fl (7.5-11.1) 02/19/18 08:50 Urine Color Yellow 02/18/18 23:50 Urine Appearance Cloudy 02/18/18 23:50 Urine pH 5.0 (5.0-8.0) 02/18/18 23:50 Ur Specific [place] 1.018 (1.001-1.035) 02/18/18 23:50 Urine Protein 1+ (NEGATIVE) H 02/18/18 23:50 Urine Glucose (UA) Negative (NEGATIVE) 02/18/18 23:50 Urine Ketones Negative (NEGATIVE) 02/18/18 23:50 Urine Blood 1+ (NEGATIVE) H 02/18/18 23:50 Urine Nitrite Positive (NEGATIVE) 02/18/18 23:50 Urine Bilirubin Negative (<2.0 mg/dL) 02/18/18 23:50 Urine Urobilinogen Negative mg/dL (0.2-1.0) 02/18/18 23:50 Ur Leukocyte Esterase 3+ (NEGATIVE) H 02/18/18 23:50 Urine WBC (Auto) 80 /hpf (3-5) 02/18/18 23:50 Urine RBC (Auto) 9 /hpf (0-3) 02/18/18 23:50 Ur Epithelial Cells Rare /HPF (FEW) 02/18/18 23:50 Urine Bacteria Rare /hpf (NONE SEEN) 02/18/18 23:50 Urine Mucus Rare 02/18/18 23:50 lab noted uti 02/19/18 10:51 Assessment: 02/19/18 10:52 withdrawal sx uti Plan: continue detox bactrim ds bid
[2018-02-19] MEDS: PRENATAL VITAMINS W/ FOLIC ACID TABLET (FP) PO SCH (11:09)
[2018-02-19] MEDS: ASPIRIN 81 MG CHEWABLE TABLETS PO SCH (11:09)
[2018-02-19] MEDS: amLODIPine BESYLATE 5 MG TABLET (FP) PO SCH (11:09)
[2018-02-19] MEDS: PANTOPRAZOLE 20 MG TABLET (FP) PO SCH (11:09)
[2018-02-19] MEDS: SULFAMETHOXAZOLE/TRIMETHOPRIM 800MG/160MG D.S. TABLET PO SCH ×2 (11:10→22:43)
--- NOTE | 2018-02-19 11:17 | EKG ---
Test Reason : Blood Pressure : / mmHG Vent. Rate : 102 BPM Atrial Rate : 102 BPM P-R Int : 134 ms QRS Dur : 082 ms QT Int : 372 ms P-R-T Axes : 074 050 048 degrees QTc Int : 484 ms SINUS TACHYCARDIA POSSIBLE LEFT ATRIAL ENLARGEMENT BORDERLINE ECG WHEN COMPARED WITH ECG OF 12-DEC-2017 21:44, NO SIGNIFICANT CHANGE WAS FOUND Confirmed by ADONIS SALGUERO MD ([id number]) on 02/19/2018 11:17:37 AM Referred By: Confirmed By:ADONIS SALGUERO MD
[2018-02-19 11:21] LABS: ALBUMIN 3.8 g/dl (3.4-5.0); ANION GAP 11 (8-16); BLOOD UREA NITROGEN 16 mg/dL (7-18); CALCIUM 8.9 mg/dL (8.5-10.1); CHLORIDE 104 mmol/L (98-107); CO2 28 mmol/L (21-32); CREATININE 1.1 mg/dL (0.55-1.02); GLUCOSE,RANDOM 86 mg/dL (74-106); POTASSIUM 3.7 mmol/L (3.5-5.1); SGOT/AST 34 U/L (15-37); SGPT/ALT 34 U/L (12-78); SODIUM 143 mmol/L (136-145)
[2018-02-19 11:22] LABS: ALK PHOS 94 U/L (45-117); BILIRUBIN,TOTAL 0.3 mg/dL (0.2-1.0); TOT PROT 7.5 g/dl (6.4-8.2)
--- NOTE | 2018-02-19 11:28 | CONSULT ---
[facility] Psychiatric Consult - Data Date of interview: 02/19/18 Admission source: [facility] Identifying data: Observation. Detox Unit Care Protocol Substance Abuse History: - Smoking Cessation. Smoking history: Current some day smoker. Have you smoked in the past 12 months: Yes. Aproximately how many cigarettes per day: 2. Cigars Per Day: 0. Hx Chewing Tobacco Use: No. Initiated information on smoking cessation: Yes. 'Breaking Loose' booklet given : 02/18/18. - Substance & Tx. History. Hx Alcohol Use: Yes. Hx Substance Use : Yes. Substance Use Type: Alcohol, Cocaine. Hx Substance Use Treatment: Yes. - Substances Abused. Alcohol. Route: Oral. Frequency: Daily. Amount used: 1 [place]. Age of first use: 28. Date of Last Use: 02/17/18. Crack. Route: Smoking. Frequency: Daily. Amount used: $100. Age of first use : 28. Date of Last Use: 02/17/18 Medical History: Denies significant medical issues Psychiatric History: Patient reports history of depression and anxiety, reports insokmnia, reportsd taking prior toa dmssion: Ambien 10mg po qhs. As per [facility] patient has been on: Seroquel 200mg po qjs. Risperdal 1mg po qhs. Patioent refusing to restart above medications and asking for sleeping pillsm only Physical/Sexual Abuse/Trauma History: Denies Additional Comment: Ambien 10mg po qhs Mental Status Exam - Mental Status Exam Alert and Oriented to: Person Cognitive Function: Fair Patient Appearance: Unkempt Mood: Sad Affect: Flat Patient Behavior: Sedated Speech Pattern: Delayed Voice Loudness: Mildly Soft/Quiet Thought Process: Circumstantial Thought Disorder: Being Controlled Hallucinations: Denies Suicidal Ideation: Denies Homicidal Ideation: Denies Insight/Judgement: Fair Sleep: Difficulty falling asleep Appetite: Fair Muscle strength/Tone: Mild Hypotonicity Gait/Station: Shuffling Additional Comments: Ambien 10mg po qhs
[2018-02-19] MEDS: LIDOCAINE 5% TOPICAL PATCH TP SCH (11:40)
[2018-02-19] MEDS: COLLOIDAL OATMEAL 1 BAR EACH TP PRN (11:40)
[2018-02-19] MEDS: CLOTRIMAZOLE 1% CREAM 15 GM TUBE TP SCH ×2 (12:27→22:53)
[2018-02-19 12:57] LABS: SICKLE CELL SCREEN NEGATIVE (NEGATIVE)
[2018-02-19] MEDS: ZOLPIDEM TARTRATE 10 MG TABLET (PARK CARE ONLY) PO PRN (22:43)
[2018-02-19] MEDS: THIAMINE HCL 100 MG TABLET (FP) PO SCH (22:43)
[2018-02-19] MEDS: MONTELUKAST NA 10 MG TABLET PO SCH (22:43)
[2018-02-19] MEDS: ACETAMINOPHEN 325 MG TABLET (FP) PO PRN (22:44)
[2018-02-19] MEDS: LIDOCAINE PATCH REMOVAL MC SCH (22:53)
[2018-02-20] MEDS: chlordiazePOXIDE HCL 25 MG CAPSULE PO SCH ×2 (06:22→10:54)
--- NOTE | 2018-02-20 10:35 | PN ---
S CIWA - CIWA Score Nausea/Vomitin-No Nausea/No Vomiting Muscle Tremors: 3 Anxiety: 5 Agitation: 4-Moderately Restless Paroxysmal Sweats: 1-Minimal Palms Moist Orientation: 0-Oriented Tacttile Disturbances: 0-None Auditory Disturbances: 0-None Visual Disturbances: 0-None Headache: 0-None Present CIWA-Ar Total Score: 13 S Progress Note (SOAP) Subjective: ANXIETY,IRRITABILITY,AGITATIONS,INTERMITTENT SLEEP. Objective: 02/20/18 10:32 Vital Signs 02/20/18 02/20/18 02/20/18 03:30 07:27 10:11 Temperature 96.8 F L 97.2 F L Pulse Rate 78 77 Respiratory 18 20 16 Rate Blood Pressure 133/89 98/59 Laboratory Tests 02/18/18 02/19/18 02/19/18 23:50 08:50 08:50 WBC 4.3 RBC 4.10 D Hgb 13.4 D Hct 40.5 D MCV 98.7 H MCH 32.7 MCHC 33.1 RDW 15.5 Plt Count 273 MPV 8.2 Sickle Cell Screen Negative Sodium 143 Potassium 3.7 Chloride 104 Carbon Dioxide 28 Anion Gap 11 BUN 16 Creatinine 1.1 H Creat Clearance w eGFR 51.20 Random Glucose 86 Calcium 8.9 Total Bilirubin 0.3 D AST 34 ALT 34 Alkaline Phosphatase 94 Total Protein 7.5 Albumin 3.8 Urine Color Yellow Urine Appearance Cloudy Urine pH 5.0 Ur Specific [place] 1.018 Urine Protein 1+ H Urine Glucose (UA) Negative Urine Ketones Negative Urine Blood 1+ H Urine Nitrite Positive Urine Bilirubin Negative Urine Urobilinogen Negative Ur Leukocyte Esterase 3+ H Urine WBC (Auto) 80 Urine RBC (Auto) 9 Ur Epithelial Cells Rare Urine Bacteria Rare Urine Mucus Rare RPR Titer 02/19/18 08:50 WBC RBC Hgb Hct MCV MCH MCHC RDW Plt Count MPV Sickle Cell Screen Sodium Potassium Chloride Carbon Dioxide Anion Gap BUN Creatinine Creat Clearance w eGFR Random Glucose Calcium Total Bilirubin AST ALT Alkaline Phosphatase Total Protein Albumin Urine Color Urine Appearance Urine pH Ur Specific [place] Urine Protein Urine Glucose (UA) Urine Ketones Urine Blood Urine Nitrite Urine Bilirubin Urine Urobilinogen Ur Leukocyte Esterase Urine WBC (Auto) Urine RBC (Auto) Ur Epithelial Cells Urine Bacteria Urine Mucus RPR Titer Nonreactive Assessment: 02/20/18 10:34 WITHDRAWAL SX Plan: CONTINUE DETOX INCREASE PO FLUIDS.
[2018-02-20] MEDS: CLOTRIMAZOLE 1% CREAM 15 GM TUBE TP SCH ×2 (10:49→22:44)
[2018-02-20] MEDS: PRENATAL VITAMINS W/ FOLIC ACID TABLET (FP) PO SCH (10:50)
[2018-02-20] MEDS: ASPIRIN 81 MG CHEWABLE TABLETS PO SCH (10:50)
[2018-02-20] MEDS: LIDOCAINE 5% TOPICAL PATCH TP SCH (10:51)
[2018-02-20] MEDS: PANTOPRAZOLE 20 MG TABLET (FP) PO SCH (10:51)
[2018-02-20] MEDS: amLODIPine BESYLATE 5 MG TABLET (FP) PO SCH (10:51)
[2018-02-20] MEDS: SULFAMETHOXAZOLE/TRIMETHOPRIM 800MG/160MG D.S. TABLET PO SCH ×2 (10:51→22:43)
[2018-02-20] MEDS: chlordiazePOXIDE 5 MG CAPSULE PO SCH ×2 (17:25→22:47)
[2018-02-20] MEDS: LIDOCAINE PATCH REMOVAL MC SCH (22:43)
[2018-02-20] MEDS: MONTELUKAST NA 10 MG TABLET PO SCH (22:44)
[2018-02-20] MEDS: THIAMINE HCL 100 MG TABLET (FP) PO SCH (22:44)
[2018-02-20] MEDS: ZOLPIDEM TARTRATE 10 MG TABLET (PARK CARE ONLY) PO PRN (22:47)
[2018-02-21] MEDS ORDERED: VITAMINS A AND D TOPICAL OINTMENT 60 GM TUBE TP SCH
[2018-02-21] MEDS: ACETAMINOPHEN 325 MG TABLET (FP) PO PRN ×2 (04:29→17:55)
[2018-02-21] MEDS: chlordiazePOXIDE 5 MG CAPSULE PO SCH ×3 (08:52→11:07)
[2018-02-21] MEDS: SULFAMETHOXAZOLE/TRIMETHOPRIM 800MG/160MG D.S. TABLET PO SCH ×2 (11:08→22:37)
[2018-02-21] MEDS: CLOTRIMAZOLE 1% CREAM 15 GM TUBE TP SCH ×2 (11:08→22:37)
[2018-02-21] MEDS: ASPIRIN 81 MG CHEWABLE TABLETS PO SCH (11:08)
[2018-02-21] MEDS: amLODIPine BESYLATE 5 MG TABLET (FP) PO SCH (11:08)
[2018-02-21] MEDS: PRENATAL VITAMINS W/ FOLIC ACID TABLET (FP) PO SCH (11:08)
[2018-02-21] MEDS: PANTOPRAZOLE 20 MG TABLET (FP) PO SCH (11:08)
[2018-02-21] MEDS: LIDOCAINE 5% TOPICAL PATCH TP SCH (11:09)
[2018-02-21] MEDS: VITAMINS A AND D TOPICAL OINTMENT 60 GM TUBE TP SCH (11:09)
[2018-02-21] MEDS: chlordiazePOXIDE HCL 10 MG CAPSULE PO SCH ×2 (17:21→22:37)
[2018-02-21] MEDS: MAGNESIUM HYDROX 2400MG/30ML ORAL SUSPENSION 30 ML CUP PO PRN (17:57)
--- NOTE | 2018-02-21 21:20 | PN ---
[facility] Progress Note (SOAP) Subjective: sweats Shakes Sleep disturbance Objective: 02/21/18 21:20 A & O x 3 Vital Signs Temperature 98.1 F 02/21/18 18:43 Pulse Rate 97 H 02/21/18 18:43 Respiratory Rate 20 02/21/18 18:43 Blood Pressure 140/90 02/21/18 18:43 O2 Sat by Pulse Oximetry (%) Assessment: 02/21/18 21:20 withdrawal sx Plan: Continue detox
[2018-02-21] MEDS: LIDOCAINE PATCH REMOVAL MC SCH (22:37)
[2018-02-21] MEDS: ZOLPIDEM TARTRATE 10 MG TABLET (PARK CARE ONLY) PO PRN (22:37)
[2018-02-21] MEDS: THIAMINE HCL 100 MG TABLET (FP) PO SCH (22:38)
[2018-02-21] MEDS: MONTELUKAST NA 10 MG TABLET PO SCH (22:38)
[2018-02-22] MEDS: hydrOXYzine PAMOATE 50 MG CAPSULE (FP) PO PRN ×2 (02:37→22:13)
[2018-02-22] MEDS: chlordiazePOXIDE HCL 10 MG CAPSULE PO SCH ×2 (07:55→10:57)
--- NOTE | 2018-02-22 10:01 | DS ---
[facility] Detox Discharge Summary Admission Date: 02/18/18 Discharge Date: 02/22/18 - History Present History: Alcohol Dependence Additional Comments: 57 YEARS OLD FEMALE ADMITTED 02/18/18 FOR ALCOHOL WITHDRAWAL SX COMPLETED ALCOHOL DETOX REGIMEN TOLERATE WELL DENIES ALCOHOL WITHDRAWAL SX ALERT ORIENTED X 3 NO ACUTE DISTRESS [facility] - Physical Exam Results Vital Signs: Vital Signs Temperature 98.1 F 02/22/18 09:56 Pulse Rate 82 02/22/18 09:56 Respiratory Rate 20 02/22/18 09:56 Blood Pressure 116/79 02/22/18 09:56 O2 Sat by Pulse Oximetry (%) Pertinent Admission Physical Exam Findings: ALCOHOL WITHDRAWAL SX Vital Signs Temperature 98.1 F 02/22/18 09:56 Pulse Rate 82 02/22/18 09:56 Respiratory Rate 20 02/22/18 09:56 Blood Pressure 116/79 02/22/18 09:56 O2 Sat by Pulse Oximetry (%) Laboratory Last Values WBC 4.3 K/mm3 (4.0-10.0) 02/19/18 08:50 RBC 4.10 M/mm3 (3.60-5.2) D 02/19/18 08:50 Hgb 13.4 GM/dL (10.7-15.3) D 02/19/18 08:50 Hct 40.5 % (32.4-45.2) D 02/19/18 08:50 MCV 98.7 fl (80-96) H 02/19/18 08:50 MCH 32.7 pg (25.7-33.7) 02/19/18 08:50 MCHC 33.1 g/dl (32.0-36.0) 02/19/18 08:50 RDW 15.5 % (11.6-15.6) 02/19/18 08:50 Plt Count 273 K/MM3 (134-434) 02/19/18 08:50 MPV 8.2 fl (7.5-11.1) 02/19/18 08:50 Sickle Cell Screen Negative (NEGATIVE) 02/19/18 08:50 Sodium 143 mmol/L (136-145) 02/19/18 08:50 Potassium 3.7 mmol/L (3.5-5.1) 02/19/18 08:50 Chloride 104 mmol/L (98-107) 02/19/18 08:50 Carbon Dioxide 28 mmol/L (21-32) 02/19/18 08:50 Anion Gap 11 (8-16) 02/19/18 08:50 BUN 16 mg/dL (7-18) 02/19/18 08:50 Creatinine 1.1 mg/dL (0.55-1.02) H 02/19/18 08:50 Creat Clearance w eGFR 51.20 (>60) 02/19/18 08:50 Random Glucose 86 mg/dL (74-106) 02/19/18 08:50 Calcium 8.9 mg/dL (8.5-10.1) 02/19/18 08:50 Total Bilirubin 0.3 mg/dL (0.2-1.0) D 02/19/18 08:50 AST 34 U/L (15-37) 02/19/18 08:50 ALT 34 U/L (12-78) 02/19/18 08:50 Alkaline Phosphatase 94 U/L (45-117) 02/19/18 08:50 Total Protein 7.5 g/dl (6.4-8.2) 02/19/18 08:50 Albumin 3.8 g/dl (3.4-5.0) 02/19/18 08:50 Urine Color Yellow 02/18/18 23:50 Urine Appearance Cloudy 02/18/18 23:50 Urine pH 5.0 (5.0-8.0) 02/18/18 23:50 Ur Specific [place] 1.018 (1.001-1.035) 02/18/18 23:50 Urine Protein 1+ (NEGATIVE) H 02/18/18 23:50 Urine Glucose (UA) Negative (NEGATIVE) 02/18/18 23:50 Urine Ketones Negative (NEGATIVE) 02/18/18 23:50 Urine Blood 1+ (NEGATIVE) H 02/18/18 23:50 Urine Nitrite Positive (NEGATIVE) 02/18/18 23:50 Urine Bilirubin Negative (<2.0 mg/dL) 02/18/18 23:50 Urine Urobilinogen Negative mg/dL (0.2-1.0) 02/18/18 23:50 Ur Leukocyte Esterase 3+ (NEGATIVE) H 02/18/18 23:50 Urine WBC (Auto) 80 /hpf (3-5) 02/18/18 23:50 Urine RBC (Auto) 9 /hpf (0-3) 02/18/18 23:50 Ur Epithelial Cells Rare /HPF (FEW) 02/18/18 23:50 Urine Bacteria Rare /hpf (NONE SEEN) 02/18/18 23:50 Urine Mucus Rare 02/18/18 23:50 RPR Titer Nonreactive (NONREACTIVE) 02/19/18 08:50 LAB NOTED CREATININ 1.1 GFR 51 UTI DISCONTINUE BACTRIM DS BEGIN LEVAQUIN 250 MG PO DAILY X 3 DAYS - Treatment Hospital Course: Detox Protocol Followed, Detoxed Safely, Responded well, Discharged Condition Good, Rehab Referral Accepted Patient has Accepted a Rehab Referral to: [facility] - Medication Discharge Medications: Ambulatory Orders Aspirin [ASA -] 81 mg PO DAILY #30 mg 10/08/17 Fluticasone/Salmeterol [Advair 250-50 Diskus] 1 each IH BID #1 disk.w.dev Risperidone [Risperdal -] 1 mg PO HS #30 tablet 10/08/17 Vits A and D/White Pet/Lanolin [A and D Ointment] 1 gm TP DAILY 12/14/17 Albuterol Sulfate Inhaler - [Ventolin HFA Inhaler -] 2 puff IH Q4H PRN #1 inhaler 02/22/18 Amlodipine Besylate [Norvasc -] 5 mg PO DAILY #30 tablet 02/22/18 Hydrochlorothiazide [Hctz -] 12.5 mg PO DAILY #30 cap 02/22/18 Montelukast Na [Singulair -] 10 mg PO HS #30 tablet 02/22/18 Pantoprazole Sodium [Protonix -] 20 mg PO DAILY #14 tablet.ec 02/22/18 levoFLOXacin [Levaquin -] 250 mg PO DAILY 02/22/18 levoFLOXacin [Levaquin -] 250 mg PO DAILY #3 tablet 02/22/18 - Diagnosis (1) Alcohol dependence with uncomplicated withdrawal Current Visit: Yes Status: Acute (2) Nicotine dependence Current Visit: Yes Status: Acute Qualifiers: Nicotine product type: cigarettes Substance use status: in withdrawal Qualified Code(s): F17.213 - Nicotine dependence, cigarettes, with withdrawal (3) Asthma Current Visit: Yes Status: Chronic Qualifiers: Asthma severity: mild Asthma persistence: intermittent Asthma complication type: uncomplicated Qualified Code(s): J45.20 - Mild intermittent asthma, uncomplicated (4) Hypertension Current Visit: Yes Status: Chronic Qualifiers: Hypertension type: essential hypertension Qualified Code(s): I10 - Essential (primary) hypertension (5) UTI (urinary tract infection) Current Visit: Yes Status: Acute Qualifiers: Urinary tract infection type: site unspecified Hematuria presence: without hematuria Qualified Code(s): N39.0 - Urinary tract infection, site not specified (6) GERD (gastroesophageal reflux disease) Current Visit: Yes Status: Chronic Qualifiers: Esophagitis presence: without esophagitis Qualified Code(s): K21.9 - Gastro -esophageal reflux disease without esophagitis (7) Positive PPD Current Visit: No Status: Resolved - AMA Did Patient Leave Against Medical Advice: No
[2018-02-22] MEDS: LIDOCAINE 5% TOPICAL PATCH TP SCH (10:55)
[2018-02-22] MEDS: ASPIRIN 81 MG CHEWABLE TABLETS PO SCH (10:55)
[2018-02-22] MEDS: PANTOPRAZOLE 20 MG TABLET (FP) PO SCH (10:55)
[2018-02-22] MEDS: PRENATAL VITAMINS W/ FOLIC ACID TABLET (FP) PO SCH (10:55)
[2018-02-22] MEDS: amLODIPine BESYLATE 5 MG TABLET (FP) PO SCH (10:55)
[2018-02-22] MEDS: CLOTRIMAZOLE 1% CREAM 15 GM TUBE TP SCH ×2 (10:56→22:12)
[2018-02-22] MEDS: VITAMINS A AND D TOPICAL OINTMENT 60 GM TUBE TP SCH (10:56)
[2018-02-22] MEDS: SULFAMETHOXAZOLE/TRIMETHOPRIM 800MG/160MG D.S. TABLET PO SCH (10:59)
[2018-02-22] MEDS: MAGNESIUM HYDROX 2400MG/30ML ORAL SUSPENSION 30 ML CUP PO PRN (20:24)
[2018-02-22] MEDS: ZOLPIDEM TARTRATE 10 MG TABLET (PARK CARE ONLY) PO PRN (20:57)
[2018-02-22] MEDS: COLLOIDAL OATMEAL 1 BAR EACH TP PRN (22:12)
[2018-02-22] MEDS: LIDOCAINE PATCH REMOVAL MC SCH (22:12)
[2018-02-22] MEDS: THIAMINE HCL 100 MG TABLET (FP) PO SCH (22:13)
[2018-02-22] MEDS: MONTELUKAST NA 10 MG TABLET PO SCH (22:13)
[2018-02-22] MEDS: ACETAMINOPHEN 325 MG TABLET (FP) PO PRN (22:14)
[2018-02-23 07:07] VITALS: PULSE 90; TEMP 97.5
[2018-02-23] MEDS: ACETAMINOPHEN 325 MG TABLET (FP) PO PRN (07:25)
[2018-02-23 09:26] VITALS: BP 117/70
[2018-02-23] MEDS: PRENATAL VITAMINS W/ FOLIC ACID TABLET (FP) PO SCH (10:15)
[2018-02-23] MEDS: PANTOPRAZOLE 20 MG TABLET (FP) PO SCH (10:15)
[2018-02-23] MEDS: amLODIPine BESYLATE 5 MG TABLET (FP) PO SCH (10:15)
[2018-02-23] MEDS: ASPIRIN 81 MG CHEWABLE TABLETS PO SCH (10:15)
[2018-02-23] MEDS: LIDOCAINE 5% TOPICAL PATCH TP SCH (10:16)
[2018-02-23] MEDS: VITAMINS A AND D TOPICAL OINTMENT 60 GM TUBE TP SCH (10:17)
[2018-02-23] MEDS: CLOTRIMAZOLE 1% CREAM 15 GM TUBE TP SCH (10:17)
--- NOTE | 2018-02-23 11:23 | DS ---
[facility] Detox Discharge Summary Admission Date: 02/18/18 Discharge Date: 02/23/18 - History Present History: Alcohol Dependence Additional Comments: 57 years old female admitted 02/18/18 for alcohol withdrawal sx completed [facility] detox [facility] - Physical Exam Results Vital Signs: Vital Signs Temperature 97.5 F L 02/23/18 09:26 Pulse Rate 90 02/23/18 09:26 Respiratory Rate 18 02/23/18 09:26 Blood Pressure 117/70 02/23/18 09:26 O2 Sat by Pulse Oximetry (%) Laboratory Last Values WBC 4.3 K/mm3 (4.0-10.0) 02/19/18 08:50 RBC 4.10 M/mm3 (3.60-5.2) D 02/19/18 08:50 Hgb 13.4 GM/dL (10.7-15.3) D 02/19/18 08:50 Hct 40.5 % (32.4-45.2) D 02/19/18 08:50 MCV 98.7 fl (80-96) H 02/19/18 08:50 MCH 32.7 pg (25.7-33.7) 02/19/18 08:50 MCHC 33.1 g/dl (32.0-36.0) 02/19/18 08:50 RDW 15.5 % (11.6-15.6) 02/19/18 08:50 Plt Count 273 K/MM3 (134-434) 02/19/18 08:50 MPV 8.2 fl (7.5-11.1) 02/19/18 08:50 Sickle Cell Screen Negative (NEGATIVE) 02/19/18 08:50 Sodium 143 mmol/L (136-145) 02/19/18 08:50 Potassium 3.7 mmol/L (3.5-5.1) 02/19/18 08:50 Chloride 104 mmol/L (98-107) 02/19/18 08:50 Carbon Dioxide 28 mmol/L (21-32) 02/19/18 08:50 Anion Gap 11 (8-16) 02/19/18 08:50 BUN 16 mg/dL (7-18) 02/19/18 08:50 Creatinine 1.1 mg/dL (0.55-1.02) H 02/19/18 08:50 Creat Clearance w eGFR 51.20 (>60) 02/19/18 08:50 Random Glucose 86 mg/dL (74-106) 02/19/18 08:50 Calcium 8.9 mg/dL (8.5-10.1) 02/19/18 08:50 Total Bilirubin 0.3 mg/dL (0.2-1.0) D 02/19/18 08:50 AST 34 U/L (15-37) 02/19/18 08:50 ALT 34 U/L (12-78) 02/19/18 08:50 Alkaline Phosphatase 94 U/L (45-117) 02/19/18 08:50 Total Protein 7.5 g/dl (6.4-8.2) 02/19/18 08:50 Albumin 3.8 g/dl (3.4-5.0) 02/19/18 08:50 Urine Color Yellow 02/18/18 23:50 Urine Appearance Cloudy 02/18/18 23:50 Urine pH 5.0 (5.0-8.0) 02/18/18 23:50 Ur Specific [place] 1.018 (1.001-1.035) 02/18/18 23:50 Urine Protein 1+ (NEGATIVE) H 02/18/18 23:50 Urine Glucose (UA) Negative (NEGATIVE) 02/18/18 23:50 Urine Ketones Negative (NEGATIVE) 02/18/18 23:50 Urine Blood 1+ (NEGATIVE) H 02/18/18 23:50 Urine Nitrite Positive (NEGATIVE) 02/18/18 23:50 Urine Bilirubin Negative (<2.0 mg/dL) 02/18/18 23:50 Urine Urobilinogen Negative mg/dL (0.2-1.0) 02/18/18 23:50 Ur Leukocyte Esterase 3+ (NEGATIVE) H 02/18/18 23:50 Urine WBC (Auto) 80 /hpf (3-5) 02/18/18 23:50 Urine RBC (Auto) 9 /hpf (0-3) 02/18/18 23:50 Ur Epithelial Cells Rare /HPF (FEW) 02/18/18 23:50 Urine Bacteria Rare /hpf (NONE SEEN) 02/18/18 23:50 Urine Mucus Rare 02/18/18 23:50 RPR Titer Nonreactive (NONREACTIVE) 02/19/18 08:50 lab noted Pertinent Admission Physical Exam Findings: alcohol withdrawal sx Vital Signs Temperature 97.5 F L 02/23/18 09:26 Pulse Rate 90 02/23/18 09:26 Respiratory Rate 18 02/23/18 09:26 Blood Pressure 117/70 02/23/18 09:26 O2 Sat by Pulse Oximetry (%) Laboratory Last Values WBC 4.3 K/mm3 (4.0-10.0) 02/19/18 08:50 RBC 4.10 M/mm3 (3.60-5.2) D 02/19/18 08:50 Hgb 13.4 GM/dL (10.7-15.3) D 02/19/18 08:50 Hct 40.5 % (32.4-45.2) D 02/19/18 08:50 MCV 98.7 fl (80-96) H 02/19/18 08:50 MCH 32.7 pg (25.7-33.7) 02/19/18 08:50 MCHC 33.1 g/dl (32.0-36.0) 02/19/18 08:50 RDW 15.5 % (11.6-15.6) 02/19/18 08:50 Plt Count 273 K/MM3 (134-434) 02/19/18 08:50 MPV 8.2 fl (7.5-11.1) 02/19/18 08:50 Sickle Cell Screen Negative (NEGATIVE) 02/19/18 08:50 Sodium 143 mmol/L (136-145) 02/19/18 08:50 Potassium 3.7 mmol/L (3.5-5.1) 02/19/18 08:50 Chloride 104 mmol/L (98-107) 02/19/18 08:50 Carbon Dioxide 28 mmol/L (21-32) 02/19/18 08:50 Anion Gap 11 (8-16) 02/19/18 08:50 BUN 16 mg/dL (7-18) 02/19/18 08:50 Creatinine 1.1 mg/dL (0.55-1.02) H 02/19/18 08:50 Creat Clearance w eGFR 51.20 (>60) 02/19/18 08:50 Random Glucose 86 mg/dL (74-106) 02/19/18 08:50 Calcium 8.9 mg/dL (8.5-10.1) 02/19/18 08:50 Total Bilirubin 0.3 mg/dL (0.2-1.0) D 02/19/18 08:50 AST 34 U/L (15-37) 02/19/18 08:50 ALT 34 U/L (12-78) 02/19/18 08:50 Alkaline Phosphatase 94 U/L (45-117) 02/19/18 08:50 Total Protein 7.5 g/dl (6.4-8.2) 02/19/18 08:50 Albumin 3.8 g/dl (3.4-5.0) 02/19/18 08:50 Urine Color Yellow 02/18/18 23:50 Urine Appearance Cloudy 02/18/18 23:50 Urine pH 5.0 (5.0-8.0) 02/18/18 23:50 Ur Specific [place] 1.018 (1.001-1.035) 02/18/18 23:50 Urine Protein 1+ (NEGATIVE) H 02/18/18 23:50 Urine Glucose (UA) Negative (NEGATIVE) 02/18/18 23:50 Urine Ketones Negative (NEGATIVE) 02/18/18 23:50 Urine Blood 1+ (NEGATIVE) H 02/18/18 23:50 Urine Nitrite Positive (NEGATIVE) 02/18/18 23:50 Urine Bilirubin Negative (<2.0 mg/dL) 02/18/18 23:50 Urine Urobilinogen Negative mg/dL (0.2-1.0) 02/18/18 23:50 Ur Leukocyte Esterase 3+ (NEGATIVE) H 02/18/18 23:50 Urine WBC (Auto) 80 /hpf (3-5) 02/18/18 23:50 Urine RBC (Auto) 9 /hpf (0-3) 02/18/18 23:50 Ur Epithelial Cells Rare /HPF (FEW) 02/18/18 23:50 Urine Bacteria Rare /hpf (NONE SEEN) 02/18/18 23:50 Urine Mucus Rare 02/18/18 23:50 RPR Titer Nonreactive (NONREACTIVE) 02/19/18 08:50 lab noted - Treatment Hospital Course: Detox Protocol Followed, Detoxed Safely, Responded well, Discharged Condition Good, Rehab Referral Accepted Patient has Accepted a Rehab Referral to: [facility] - Medication Discharge Medications: Ambulatory Orders Aspirin [ASA -] 81 mg PO DAILY #30 mg 10/08/17 Fluticasone/Salmeterol [Advair 250-50 Diskus] 1 each IH BID #1 disk.w.dev Risperidone [Risperdal -] 1 mg PO HS #30 tablet 10/08/17 Vits A and D/White Pet/Lanolin [A and D Ointment] 1 gm TP DAILY 12/14/17 Albuterol Sulfate Inhaler - [Ventolin HFA Inhaler -] 2 puff IH Q4H PRN #1 inhaler 02/22/18 Amlodipine Besylate [Norvasc -] 5 mg PO DAILY #30 tablet 02/22/18 Hydrochlorothiazide [Hctz -] 12.5 mg PO DAILY #30 cap 02/22/18 Montelukast Na [Singulair -] 10 mg PO HS #30 tablet 02/22/18 Pantoprazole Sodium [Protonix -] 20 mg PO DAILY #14 tablet.ec 02/22/18 levoFLOXacin [Levaquin -] 250 mg PO DAILY 02/22/18 levoFLOXacin [Levaquin -] 250 mg PO DAILY #3 tablet 02/22/18 - Diagnosis (1) Alcohol dependence with uncomplicated withdrawal Current Visit: Yes Status: Acute (2) Nicotine dependence Current Visit: Yes Status: Acute Qualifiers: Nicotine product type: cigarettes Substance use status: in withdrawal Qualified Code(s): F17.213 - Nicotine dependence, cigarettes, with withdrawal (3) Asthma Current Visit: Yes Status: Chronic Qualifiers: Asthma severity: mild Asthma persistence: intermittent Asthma complication type: uncomplicated Qualified Code(s): J45.20 - Mild intermittent asthma, uncomplicated (4) Hypertension Current Visit: Yes Status: Chronic Qualifiers: Hypertension type: essential hypertension Qualified Code(s): I10 - Essential (primary) hypertension (5) UTI (urinary tract infection) Current Visit: Yes Status: Resolved Qualifiers: Urinary tract infection type: site unspecified Hematuria presence: without hematuria Qualified Code(s): N39.0 - Urinary tract infection, site not specified (6) GERD (gastroesophageal reflux disease) Current Visit: Yes Status: Chronic Qualifiers: Esophagitis presence: without esophagitis Qualified Code(s): K21.9 - Gastro -esophageal reflux disease without esophagitis (7) Positive PPD Current Visit: No Status: Resolved - AMA Did Patient Leave Against Medical Advice: No
== END 2018-02-23 12:51 | disposition home or self-care (01) | DRG 774 ==
LOC: YASAS 10:33 → Y6N 12:41
PROVIDERS: ADMIT Family Medicine Addiction Medicine; ATTEND Family Medicine Addiction Medicine
PROC: HZ2ZZZZ Detoxification Services for Substance Abuse Treatment (ICD-10-PCS; principal; 2018-02-18)
DX: F10.230 Alcohol dependence with withdrawal, uncomplicated (principal); F14.20 Cocaine dependence, uncomplicated; F17.213 Nicotine dependence, cigarettes, with withdrawal; F32.9 Major depressive disorder, single episode, unspecified; F41.9 Anxiety disorder, unspecified; I10 Essential (primary) hypertension; J45.20 Mild intermittent asthma, uncomplicated; N39.0 Urinary tract infection, site not specified; K21.9 Gastro-esophageal reflux disease without esophagitis; R76.11 Nonspecific reaction to tuberculin skin test without active tuberculosis; M19.90 Unspecified osteoarthritis, unspecified site; Z91.013 Allergy to seafood
CPT/HCPCS: 36415; 80053; 81003; 81015; 85027; 85660; 86593; 93005; 93010

== ENCOUNTER 2018-03-25 08:38 | Inpatient (IN) | payer OTHER ==
[2018-03-25 09:24] VITALS: BMI 32.4
--- NOTE | 2018-03-25 12:16 | HP ---
Admission [facility] Allergies/Adverse Reactions: Allergies Allergy/AdvReac Type Severity Reaction Status Date / Time mushroom Allergy Severe Rash Verified 03/25/18 09:39 No Known Drug Allergies Allergy Verified 03/25/18 09:39 salmon Allergy Severe Difficulty Uncoded 03/25/18 09:39 Breathing - Ebola screening Have you traveled outside of the country in the last 21 days: No (N) Have you had contact with anyone from an Ebola affected area: No Have you been sick,other than usual withdrawal symptoms: No Do you have a fever: No Patient History - Patient Medical History Hx Anemia: Yes (HX/O) Hx Asthma: Yes Hx Chronic Obstructive Pulmonary Disease (COPD): No Hx Cancer: No Hx Cardiac Disorders: No Hx Congestive Heart Failure: No Hx Hypertension: Yes Hx Hypercholesterolemia: No Hx Pacemaker: No HX Cerebrovascular Accident: No Hx Seizures: No Hx Dementia: No Hx Diabetes: No Hx Gastrointestinal Disorders: Yes (acid reflux) Hx Liver Disease: No Hx Genitourinary Disorders: No Hx Sexually Transmitted Disorders: No Hx Renal Disease (ESRD): No Hx Thyroid Disease: No Hx Human Immunodeficiency Virus (HIV): No Hx Hepatitis C: No Hx Depression: Yes Hx Suicide Attempt: No Hx Bipolar Disorder: Yes Hx Schizophrenia: Yes - Patient Surgical History Past Surgical History: Yes Hx Neurologic Surgery: No Hx Cataract Extraction: No Hx Cardiac Surgery: No Hx Lung Surgery: No Hx Breast Surgery: No Hx Breast Biopsy: No Hx Abdominal Surgery: No Hx Appendectomy: No Hx Cholecystectomy: No Hx Genitourinary Surgery: No Hx Section: Yes (x2) Hx Orthopedic Surgery: (right ankle fx at age 18) Hx Hysterectomy: No Anesthesia Reaction: No - PPD History Previous Implant?: Yes Documented Results: Positive w/o proof Results: cxr(-)11/10/17 - Reproductive History Last Menstrual Period: 05/08/90 Patient : No - Smoking Cessation Smoking history: Current some day smoker Have you smoked in the past 12 months: Yes Aproximately how many cigarettes per day: 2 Cigars Per Day: 0 Hx Chewing Tobacco Use: No Initiated information on smoking cessation: Yes - Substances Abused Crack Route: Smoking Frequency: Daily Amount used: $100 Age of first use: 28 Date of Last Use: 03/23/18 Alcohol-beer/aracelis Route: Oral Frequency: Daily Amount used: 1-6 pk./2-3 shots Age of first use: 10 Date of Last Use: 03/23/18 Family Disease History - Family Disease History Family Disease History: Heart Disease: Father (), Mother (), Other: Brother (only child) Admission Physical Exam [facility] - Vital Signs Vital Signs: Vital Signs - 24 hr 03/25/18 09:20 Temperature 97.1 F L Pulse Rate 71 Respiratory 20 Rate Blood Pressure 148/89 [facility] Breath Alcohol Content Breath Alcohol Content: 0 Urine Pregancy Test - Result Urine Test Results: Negative- NO Line Present Urine Drug Screen - Results Drug Screen Negative: No Urine Drug Screen Results: KULWINDER-Cocaine
--- NOTE | 2018-03-25 12:56 | HP ---
CIWA Score - CIWA Score Nausea/Vomitin Muscle Tremors: 3 Anxiety: 3 Agitation: 2 Paroxysmal Sweats: 2 Orientation: 0-Oriented Tacttile Disturbances: 1-Very Mild Itch/Numbness Auditory Disturbances: 1-Very Mild Visual Disturbances: 0-None Headache: 2-Mild CIWA-Ar Total Score: 17 Admission ROS BHS - HPI Chief Complaint: i need help to stop drinking alcohol and crack Allergies/Adverse Reactions: Allergies Allergy/AdvReac Type Severity Reaction Status Date / Time mushroom Allergy Severe Rash Verified 03/25/18 09:39 No Known Drug Allergies Allergy Verified 03/25/18 09:39 salmon Allergy Severe Difficulty Uncoded 03/25/18 09:39 Breathing History of Present Illness: this 57 years old female with alcohol and cocaine dependence,seeking detox, withdrawal symptom,last treatment 02/18/18 to 02/23/18 syncope alcohol related htn,asthma,arthritis both knees bipolar disorder nicotine dependence longest period of sobriety 3 years Exam Limitations: No Limitations - Ebola screening Have you traveled outside of the country in the last 21 days: No (N) Have you had contact with anyone from an Ebola affected area: No Have you been sick,other than usual withdrawal symptoms: No Do you have a fever: No - Review of Systems Constitutional: Loss of Appetite, Malaise, Night Sweats, Changes in sleep, Weakness EENT: reports: Nose Congestion, Other (tooth abscess right lower) Respiratory: reports: No Symptoms reported, Other (asthma) Cardiac: reports: No Symptoms Reported GI: reports: Nausea, Vomiting, Abdominal cramping Musculoskeletal: reports: Back Pain, Muscle Pain Integumentary: reports: Dryness Neuro: reports: Headache, Tremors Endocrine: reports: No Symptoms Reported Hematology: reports: No Symptoms Reported Psychiatric: reports: No Sypmtoms Reported, Judgement Intact, Mood/Affect Appropiate, Orientated x3 (bipolar disorder) Patient History - Patient Medical History Hx Anemia: Yes (HX/O,no med) Hx Asthma: Yes (on albuterol inhaler) Hx Chronic Obstructive Pulmonary Disease (COPD): No Hx Cancer: No Hx Cardiac Disorders: No Hx Congestive Heart Failure: No Hx Hypertension: Yes (on med) Hx Hypercholesterolemia: No Hx Pacemaker: No HX Cerebrovascular Accident: No Hx Seizures: No Hx Dementia: No Hx Diabetes: No Hx Gastrointestinal Disorders: Yes (acid reflux) Hx Liver Disease: No Hx Genitourinary Disorders: No Hx Sexually Transmitted Disorders: No Hx Renal Disease (ESRD): No Hx Thyroid Disease: No Hx Human Immunodeficiency Virus (HIV): No (last 2017 negative) Hx Hepatitis C: No Hx Depression: Yes (on med) Hx Suicide Attempt: No Hx Bipolar Disorder: Yes Hx Schizophrenia: Yes Other Medical History: no suicidal,no homicidal - Patient Surgical History Past Surgical History: Yes Hx Neurologic Surgery: No Hx Cataract Extraction: No Hx Cardiac Surgery: No Hx Lung Surgery: No Hx Breast Surgery: No Hx Breast Biopsy: No Hx Abdominal Surgery: No Hx Appendectomy: No Hx Cholecystectomy: No Hx Genitourinary Surgery: No Hx Section: Yes (x2) Hx Orthopedic Surgery: Yes (right ankle fx at age 18) Hx Hysterectomy: No Anesthesia Reaction: No - PPD History Previous Implant?: Yes Documented Results: Positive w/o proof Results: cxr(-)11/10/17 PPD to be Administered?: No - Reproductive History Last Menstrual Period: 05/08/90 Patient : No - Smoking Cessation Smoking history: Current some day smoker Have you smoked in the past 12 months: Yes Aproximately how many cigarettes per day: 20 Cigars Per Day: 0 Hx Chewing Tobacco Use: No Initiated information on smoking cessation: Yes 'Breaking Loose' booklet given: 03/25/18 - Substance & Tx. History Hx Alcohol Use: Yes Hx Substance Use: Yes Substance Use Type: Alcohol, Cocaine Hx Substance Use Treatment: Yes ([facility] 02/18/18 to 02/23/18) - Substances Abused Crack Route: Smoking Frequency: Daily Amount used: $100 Age of first use: 28 Date of Last Use: 03/23/18 Alcohol-beer/aracelis Route: Oral Frequency: Daily Amount used: 1-6 pk./2-3 shots Age of first use: 10 Date of Last Use: 03/23/18 Family Disease History - Family Disease History Family Disease History: Heart Disease: Father (), Mother (), Other: Brother (only child) Admission Physical Exam BHS - Vital Signs Vital Signs: Vital Signs - 24 hr 03/25/18 09:20 Temperature 97.1 F L Pulse Rate 71 Respiratory 20 Rate Blood Pressure 148/89 - Physical General Appearance: Yes: Moderate Distress, Tremorous, Irritable, Sweating, Anxious HEENTM: Yes: Normal ENT Inspection, COLIN, Pharynx Normal, Other (poor oral hygience dental abcess with gingivitis) Respiratory: Yes: Lungs Clear, Normal Breath Sounds, No Respiratory Distress Neck: Yes: Within Normal Limits, No masses,lesions,Nodules, Supple, Trachea in good position Breast: Yes: Breast Exam Deferred Cardiology: Yes: Within Normal Limits, Regular Rhythm, Regular Rate, S1, S2 Abdominal: Yes: Within Normal Limits, Normal Bowel Sounds, Non Tender, Flat, Soft Genitourinary: Yes: Within Normal Limits Back: Yes: Muscle Spasm Musculoskeletal: Yes: full range of Motion (arthritis both knees), Back pain, Muscle Pain Extremities: Yes: Normal Range of Motion, Tremors Neurological: Yes: shirt creaser II-XII NML intact, Fully Oriented, Alert, Motor Strength 5/5 Integumentary: Yes: Dry Lymphatic: Yes: Within Normal Limits - Diagnostic (1) Alcohol dependence with uncomplicated withdrawal Current Visit: No Status: Acute (2) Cocaine dependence, uncomplicated Current Visit: No Status: Acute (3) Insomnia Current Visit: No Status: Acute (4) Nicotine dependence Current Visit: No Status: Acute Qualifiers: Nicotine product type: cigarettes Substance use status: in withdrawal Qualified Code(s): F17.213 - Nicotine dependence, cigarettes, with withdrawal (5) Arthritis Current Visit: No Status: Chronic (6) Asthma Current Visit: No Status: Chronic Qualifiers: Asthma severity: mild Asthma persistence: intermittent Asthma complication type: uncomplicated Qualified Code(s): J45.20 - Mild intermittent asthma, uncomplicated (7) Dental caries Current Visit: No Status: Chronic (8) GERD (gastroesophageal reflux disease) Current Visit: No Status: Chronic Qualifiers: Esophagitis presence: without esophagitis Qualified Code(s): K21.9 - Gastro -esophageal reflux disease without esophagitis (9) Hypertension Current Visit: No Status: Chronic Qualifiers: Hypertension type: essential hypertension Qualified Code(s): I10 - Essential (primary) hypertension (10) Tinea pedis Current Visit: No Status: Chronic Qualifiers: (11) Positive PPD Current Visit: No Status: Resolved (12) Poor oral hygiene Current Visit: Yes Status: Acute Cleared for Admission BHS - Detox or Rehab S Level of Care: Medically Managed Detox Regimen/Protocol: Librium S Breath Alcohol Content Breath Alcohol Content: 0 Urine Pregancy Test - Result Urine Test Results: Negative- NO Line Present Urine Drug Screen - Results Drug Screen Negative: No Urine Drug Screen Results: KULWINDER-Cocaine
[2018-03-25] MEDS ORDERED: MAG HYDROX/AL HYDROX/SIMETH 30 ML UNIT-DOSE CUP PO PRN (13:15)
[2018-03-25] MEDS ORDERED: LOPERAMIDE HCL 2 MG CAPSULE PO PRN (13:15)
[2018-03-25] MEDS ORDERED: hydrOXYzine PAMOATE 50 MG CAPSULE (FP) PO PRN (13:15)
[2018-03-25] MEDS ORDERED: ACETAMINOPHEN 325 MG TABLET (FP) PO PRN (13:15)
[2018-03-25] MEDS ORDERED: IBUPROFEN 400 MG TABLET (FP) PO PRN (13:15)
[2018-03-25] MEDS ORDERED: MENTHOL/PHENOL 1 EACH UD MM PRN (13:15)
[2018-03-25] MEDS ORDERED: NICOTINE POLACRILEX 4 MG GUM BC PRN (13:15)
[2018-03-25] MEDS ORDERED: chlordiazePOXIDE HCL 25 MG CAPSULE PO PRN (13:15)
[2018-03-25] MEDS ORDERED: MAGNESIUM CITRATE 300 ML BOTTLE PO PRN (13:15)
[2018-03-25] MEDS ORDERED: MAGNESIUM HYDROX 2400MG/30ML ORAL SUSPENSION 30 ML CUP PO PRN (13:15)
[2018-03-25] MEDS ORDERED: guaiFENesin/D-METHORPHAN HB 10 ML UNIT-DOSE CUPS PO PRN (13:15)
[2018-03-25] MEDS ORDERED: P-EPHED 60MG/TRIPROLIDI 2.5MG TABLET PO PRN (13:15)
[2018-03-25] MEDS ORDERED: ALBUTEROL SO4 8 GM HFA INHALER IH PRN (13:19)
[2018-03-25] MEDS: AMMONIUM LACTATE 12% LOTION 225 GM BOTTLE TP SCH ×2 (14:29→22:12)
[2018-03-25] MEDS: AMOXICILLIN 500 MG CAPSULE (FP) PO SCH ×2 (14:29→22:12)
[2018-03-25] MEDS: METHYL SALICYLATE/MENTHOL OINT 30 GM TUBE TP SCH (14:29)
[2018-03-25] MEDS: chlordiazePOXIDE HCL 25 MG CAPSULE PO SCH ×2 (17:35→22:12)
[2018-03-25 18:03] LABS: URINE APPEARANCE SLCLOUDY; URINE BILIRUBIN NEGATIVE (<2.0 mg/dL); URINE COLOR LTYELLOW; URINE GLUCOSE (UA) NEGATIVE (NEGATIVE); URINE KETONE NEGATIVE (NEGATIVE); URINE LEUK ESTERASE TRACE (NEGATIVE); URINE NITRITE NEGATIVE (NEGATIVE); URINE PROTEIN NEGATIVE (NEGATIVE); URINE UROBILINOGEN NEGATIVE mg/dL (0.2-1.0)
[2018-03-25 18:10] LABS: EPI CELLS RARE /HPF (FEW); URINE BACTERIA RARE /hpf (NONE SEEN); URINE MUCUS RARE; YEAST FEW
[2018-03-25] MEDS: BUDESONIDE/FORMETEROL FUMARATE 80/4.5 mcg INHALER IH SCH (22:10)
[2018-03-25] MEDS: MONTELUKAST NA 10 MG TABLET PO SCH (22:11)
[2018-03-25] MEDS: THIAMINE HCL 100 MG TABLET (FP) PO SCH (22:12)
[2018-03-25] MEDS: MELATONIN 5 MG TABLETS PO PRN (22:15)
[2018-03-25] MEDS: COLLOIDAL OATMEAL 1 BAR EACH TP PRN (22:16)
[2018-03-26] MEDS: AMOXICILLIN 500 MG CAPSULE (FP) PO SCH ×3 (06:09→22:14)
[2018-03-26] MEDS: chlordiazePOXIDE HCL 25 MG CAPSULE PO SCH ×4 (06:49→23:35)
--- NOTE | 2018-03-26 07:39 | CONSULT ---
[facility] Psychiatric Consult - Data Date of interview: 03/26/18 Admission source: [facility] Identifying data: This is 57 years old female, single mother of three, unemploye , livinf alone, on PA, with history of Schizophrenia, with alcohol and cocaine dependence,seeking detox reporting withdrawal symptoms, Substance Abuse History: - Smoking Cessation. Smoking history: Current some day smoker. Have you smoked in the past 12 months: Yes. Aproximately how many cigarettes per day: 2. Cigars Per Day: 0. Hx Chewing Tobacco Use: No. Initiated information on smoking cessation: Yes. - Substances Abused. Crack. Route: Smoking. Frequency: Daily. Amount used: $100. Age of first use : 28. Date of Last Use: 03/23/18. Alcohol-beer/aracelis. Route: Oral. Frequency: Daily. Amount used: 1-6 pk./2-3 shots. Age of first use: 10. Date of Last Use: 03/23/18 Medical History: Both knees arthritis, Asthma, Syncope history, UTI history, GERD, HTN Psychiatric History: As per computer patient suffers Schizophrenia, reports taking prior to admission Seroquel 300mg po qhs for insomnia, poor historyan, unclear regarding psychiatric hospitalization history. Patient denies suicidal. homicidal history Physical/Sexual Abuse/Trauma History: Denies Additional Comment: Seroquel 300mg po qhs Mental Status Exam - Mental Status Exam Alert and Oriented to: Person Cognitive Function: Fair Mood: Sad, Anxious Affect: Flat Patient Behavior: Cooperative Speech Pattern: Delayed Voice Loudness: Mildly Soft/Quiet Thought Process: Circumstantial Thought Disorder: Being Controlled Hallucinations: Denies Suicidal Ideation: Denies Homicidal Ideation: Denies Insight/Judgement: Fair Sleep: Difficulty falling asleep Appetite: Weight gain Muscle strength/Tone: Mild Hypotonicity Gait/Station: Normal Additional Comments: Seroquel 300mg po qhs Psychiatric Findings - Problem List ([place] 1, 2,3) (1) Alcohol dependence with uncomplicated withdrawal Current Visit: No Status: Acute (2) Cocaine dependence, uncomplicated Current Visit: No Status: Acute (3) Nicotine dependence Current Visit: No Status: Acute Qualifiers: Nicotine product type: cigarettes Substance use status: in withdrawal Qualified Code(s): F17.213 - Nicotine dependence, cigarettes, with withdrawal (4) Substance induced mood disorder Current Visit: No Status: Acute (5) Arthritis Current Visit: No Status: Chronic (6) Asthma Current Visit: No Status: Chronic Qualifiers: Asthma severity: mild Asthma persistence: intermittent Asthma complication type: uncomplicated Qualified Code(s): J45.20 - Mild intermittent asthma, uncomplicated (7) GERD (gastroesophageal reflux disease) Current Visit: No Status: Chronic Qualifiers: Esophagitis presence: without esophagitis Qualified Code(s): K21.9 - Gastro -esophageal reflux disease without esophagitis (8) Hypertension Current Visit: No Status: Chronic Qualifiers: Hypertension type: essential hypertension Qualified Code(s): I10 - Essential (primary) hypertension (9) Schizoaffective disorder Current Visit: No Status: Suspected Qualifiers: Schizoaffective disorder type: other Comment: As per history.No adherence to OPD care. (10) Positive PPD Current Visit: No Status: Resolved (11) UTI (urinary tract infection) Current Visit: No Status: Resolved Qualifiers: Urinary tract infection type: site unspecified Hematuria presence: without hematuria Qualified Code(s): N39.0 - Urinary tract infection, site not specified - Initial Treatment Plan Initial Treatment Plan: Seroquel 300mg po qhs
[2018-03-26 10:16] LABS: HEMATOCRIT 38.7 % (32.4-45.2); HEMOGLOBIN 13.1 GM/dL (10.7-15.3); MCH 33.4 pg (25.7-33.7); MCHC 33.9 g/dl (32.0-36.0); MEAN CELL VOLUME 98.5 fl (80-96); MEAN PLT VOLUME 8.2 fl (7.5-11.1); PLATELET COUNT 249 K/MM3 (134-434); RBC 3.93 M/mm3 (3.60-5.2); RDW 15.4 % (11.6-15.6); WHITE BLOOD COUNT 3.7 K/mm3 (4.0-10.0)
--- NOTE | 2018-03-26 10:46 | PN ---
[facility] CIWA - CIWA Score Nausea/Vomitin-Mild Nausea/No Vomiting Muscle Tremors: 4-Moderate,w/Arms Extend Anxiety: 4-Mod. Anxious/Guarded Agitation: 4-Moderately Restless Paroxysmal Sweats: 1-Minimal Palms Moist Orientation: 0-Oriented Tacttile Disturbances: 0-None Auditory Disturbances: 0-None Visual Disturbances: 0-None Headache: 0-None Present CIWA-Ar Total Score: 14 BHS Progress Note (SOAP) Subjective: SWEAT TREMOR RESTLESSNESS IRRITABLE AGITATIVE Objective: 03/26/18 10:45 Vital Signs Temperature 98 F 03/26/18 10:24 Pulse Rate 82 03/26/18 10:24 Respiratory Rate 18 03/26/18 10:24 Blood Pressure 148/92 03/26/18 10:24 O2 Sat by Pulse Oximetry (%) Laboratory Last Values WBC 3.7 K/mm3 (4.0-10.0) L 03/26/18 06:00 RBC 3.93 M/mm3 (3.60-5.2) 03/26/18 06:00 Hgb 13.1 GM/dL (10.7-15.3) 03/26/18 06:00 Hct 38.7 % (32.4-45.2) 03/26/18 06:00 MCV 98.5 fl (80-96) H 03/26/18 06:00 MCH 33.4 pg (25.7-33.7) 03/26/18 06:00 MCHC 33.9 g/dl (32.0-36.0) 03/26/18 06:00 RDW 15.4 % (11.6-15.6) 03/26/18 06:00 Plt Count 249 K/MM3 (134-434) 03/26/18 06:00 MPV 8.2 fl (7.5-11.1) 03/26/18 06:00 Urine Color Ltyellow 03/25/18 17:00 Urine Appearance Slcloudy 03/25/18 17:00 Urine pH 5.0 (5.0-8.0) 03/25/18 17:00 Ur Specific [place] 1.017 (1.001-1.035) 03/25/18 17:00 Urine Protein Negative (NEGATIVE) 03/25/18 17:00 Urine Glucose (UA) Negative (NEGATIVE) 03/25/18 17:00 Urine Ketones Negative (NEGATIVE) 03/25/18 17:00 Urine Blood Negative (NEGATIVE) 03/25/18 17:00 Urine Nitrite Negative (NEGATIVE) 03/25/18 17:00 Urine Bilirubin Negative (<2.0 mg/dL) 03/25/18 17:00 Urine Urobilinogen Negative mg/dL (0.2-1.0) 03/25/18 17:00 Ur Leukocyte Esterase Trace (NEGATIVE) 03/25/18 17:00 Urine WBC (Auto) 8 /hpf (3-5) 03/25/18 17:00 Urine RBC (Auto) 4 /hpf (0-3) 03/25/18 17:00 Ur Epithelial Cells Rare /HPF (FEW) 03/25/18 17:00 Urine Bacteria Rare /hpf (NONE SEEN) 03/25/18 17:00 Urine Mucus Rare 03/25/18 17:00 Urine Yeast Few 03/25/18 17:00 HIV 1&2 Antibody Screen Negative 03/25/18 13:00 HIV P24 Antigen Negative 03/25/18 13:00 LAB NOTED Assessment: 03/26/18 10:46 WITHDRAWAL SX Plan: CONTINUE DETOX
[2018-03-26] MEDS: PRENATAL VITAMINS W/ FOLIC ACID TABLET (FP) PO SCH (10:47)
[2018-03-26] MEDS: amLODIPine BESYLATE 5 MG TABLET (FP) PO SCH (10:47)
[2018-03-26] MEDS: BUDESONIDE/FORMETEROL FUMARATE 80/4.5 mcg INHALER IH SCH (10:47)
[2018-03-26] MEDS: PANTOPRAZOLE 20 MG TABLET (FP) PO SCH (10:48)
[2018-03-26] MEDS: AMMONIUM LACTATE 12% LOTION 225 GM BOTTLE TP SCH ×2 (10:48→22:14)
[2018-03-26] MEDS: HYDROCHLOROTHIAZIDE 12.5 MG CAPSULE (FP) PO SCH (10:48)
[2018-03-26] MEDS: ASPIRIN 81 MG CHEWABLE TABLETS PO SCH (10:48)
[2018-03-26] MEDS: METHYL SALICYLATE/MENTHOL OINT 30 GM TUBE TP SCH (10:48)
[2018-03-26 10:53] LABS: CHLORIDE 108 mmol/L (98-107); POTASSIUM 3.8 mmol/L (3.5-5.1); SODIUM 141 mmol/L (136-145)
[2018-03-26 11:25] LABS: ALBUMIN 3.7 g/dl (3.4-5.0); ALK PHOS 99 U/L (45-117); ANION GAP 9 (8-16); BILIRUBIN,TOTAL 0.5 mg/dL (0.2-1.0); BLOOD UREA NITROGEN 14 mg/dL (7-18); CALCIUM 8.8 mg/dL (8.5-10.1); CO2 24 mmol/L (21-32); GLUCOSE,RANDOM 90 mg/dL (74-106); SGOT/AST 19 U/L (15-37); SGPT/ALT 28 U/L (12-78); TOT PROT 7.3 g/dl (6.4-8.2)
[2018-03-26] MEDS: BUDESONIDE/FORMETEROL FUMARATE 160/4.5 mcg INHALER IH SCH ×2 (12:00→22:14)
[2018-03-26] MEDS: HYDROCORTISONE 1% TOPICAL CREAM 30 GM TUBE TP SCH (12:00)
[2018-03-26] MEDS: BACLOFEN 10 MG TABLET (FP) PO SCH ×2 (13:56→22:14)
--- NOTE | 2018-03-26 14:27 | EKG ---
Test Reason : Blood Pressure : / mmHG Vent. Rate : 085 BPM Atrial Rate : 085 BPM P-R Int : 132 ms QRS Dur : 084 ms QT Int : 398 ms P-R-T Axes : 070 050 051 degrees QTc Int : 473 ms NORMAL SINUS RHYTHM NORMAL ECG WHEN COMPARED WITH ECG OF 18-FEB-2018 13:21, NO SIGNIFICANT CHANGE WAS FOUND Confirmed by ADONIS SALGUERO MD ([id number]) on 03/26/2018 2:27:16 PM Referred By: Confirmed By:ADONIS SALGUERO MD
[2018-03-26] MEDS: QUEtiapine FUMARATE 300 MG TABLET PO SCH (22:14)
[2018-03-26] MEDS: MONTELUKAST NA 10 MG TABLET PO SCH (22:14)
[2018-03-26] MEDS: THIAMINE HCL 100 MG TABLET (FP) PO SCH (22:15)
[2018-03-26] MEDS: MELATONIN 5 MG TABLETS PO PRN (22:32)
[2018-03-27] MEDS: chlordiazePOXIDE HCL 25 MG CAPSULE PO SCH ×2 (07:23→12:02)
[2018-03-27] MEDS: AMOXICILLIN 500 MG CAPSULE (FP) PO SCH ×3 (07:24→22:10)
[2018-03-27] MEDS: BACLOFEN 10 MG TABLET (FP) PO SCH ×3 (07:25→22:10)
[2018-03-27] MEDS: ASPIRIN 81 MG CHEWABLE TABLETS PO SCH (12:00)
[2018-03-27] MEDS: METHYL SALICYLATE/MENTHOL OINT 30 GM TUBE TP SCH (12:00)
[2018-03-27] MEDS: HYDROCORTISONE 1% TOPICAL CREAM 30 GM TUBE TP SCH (12:00)
[2018-03-27] MEDS: HYDROCHLOROTHIAZIDE 12.5 MG CAPSULE (FP) PO SCH (12:00)
[2018-03-27] MEDS: AMMONIUM LACTATE 12% LOTION 225 GM BOTTLE TP SCH ×2 (12:01→22:10)
[2018-03-27] MEDS: amLODIPine BESYLATE 5 MG TABLET (FP) PO SCH (12:01)
[2018-03-27] MEDS: PRENATAL VITAMINS W/ FOLIC ACID TABLET (FP) PO SCH (12:01)
[2018-03-27] MEDS: BUDESONIDE/FORMETEROL FUMARATE 160/4.5 mcg INHALER IH SCH ×2 (12:02→22:09)
[2018-03-27] MEDS: PANTOPRAZOLE 20 MG TABLET (FP) PO SCH (12:02)
--- NOTE | 2018-03-27 15:36 | PN ---
[facility] CIWA - CIWA Score Nausea/Vomitin-Mild Nausea/No Vomiting Muscle Tremors: 1-None Visible, but [place] Anxiety: 1-Mildly Anxious Agitation: 1-Slight > Activity Paroxysmal Sweats: No Perspiration Orientation: 0-Oriented Tacttile Disturbances: 0-None Auditory Disturbances: 0-None Visual Disturbances: 0-None Headache: 0-None Present CIWA-Ar Total Score: 4 BHS Progress Note (SOAP) Subjective: pt states feeling dizzy and so wants to stay in bed- refused meds this morning, pt states has no problems going to bathroom, pt states no new meds and does not think it the meds that is causing the dizziness- maybe the stopping of use of illicit substances Objective: 03/27/18 15:31 Laboratory Tests 03/25/18 03/25/18 03/26/18 13:00 17:00 06:00 WBC 3.7 L RBC 3.93 Hgb 13.1 Hct 38.7 MCV 98.5 H MCH 33.4 MCHC 33.9 RDW 15.4 Plt Count 249 MPV 8.2 Sodium Potassium Chloride Carbon Dioxide Anion Gap BUN Creatinine Creat Clearance w eGFR Random Glucose Calcium Total Bilirubin AST ALT Alkaline Phosphatase Total Protein Albumin Urine Color Ltyellow Urine Appearance Slcloudy Urine pH 5.0 Ur Specific [place] 1.017 Urine Protein Negative Urine Glucose (UA) Negative Urine Ketones Negative Urine Blood Negative Urine Nitrite Negative Urine Bilirubin Negative Urine Urobilinogen Negative Ur Leukocyte Esterase Trace Urine WBC (Auto) 8 Urine RBC (Auto) 4 Ur Epithelial Cells Rare Urine Bacteria Rare Urine Mucus Rare Urine Yeast Few RPR Titer HIV 1&2 Antibody Screen Negative HIV P24 Antigen Negative 03/26/18 03/26/18 06:00 06:00 WBC RBC Hgb Hct MCV MCH MCHC RDW Plt Count MPV Sodium 141 Potassium 3.8 Chloride 108 H Carbon Dioxide 24 Anion Gap 9 BUN 14 Creatinine 1.0 Creat Clearance w eGFR 57.15 Random Glucose 90 Calcium 8.8 Total Bilirubin 0.5 AST 19 ALT 28 Alkaline Phosphatase 99 Total Protein 7.3 Albumin 3.7 Urine Color Urine Appearance Urine pH Ur Specific [place] Urine Protein Urine Glucose (UA) Urine Ketones Urine Blood Urine Nitrite Urine Bilirubin Urine Urobilinogen Ur Leukocyte Esterase Urine WBC (Auto) Urine RBC (Auto) Ur Epithelial Cells Urine Bacteria Urine Mucus Urine Yeast RPR Titer Nonreactive HIV 1&2 Antibody Screen HIV P24 Antigen Vital Signs - 24 hr 03/26/18 03/26/18 03/27/18 18:53 22:53 00:30 Temperature 97.7 F 97.5 F L Pulse Rate 65 76 Respiratory 18 18 18 Rate Blood Pressure 121/69 131/77 03/27/18 03/27/18 03/27/18 03:30 06:20 14:00 Temperature 97.7 F 97.7 F Pulse Rate 69 79 Respiratory 18 16 16 Rate Blood Pressure 97/62 102/58 BP was a bit low this morning, OK at 2pm pt alert and oriented, no focal weakness 03/27/18 15:33 Assessment: 03/27/18 15:33 continue alcohol detox- hold meds for dizziness- pt does not want to me to discontinue any of her meds low BP now resolved Plan: continue alcohol detox follow BP and hold meds for SBP < 110
[2018-03-27] MEDS: chlordiazePOXIDE 5 MG CAPSULE PO SCH ×2 (16:50→22:10)
[2018-03-27] MEDS: MONTELUKAST NA 10 MG TABLET PO SCH (22:09)
[2018-03-27] MEDS: QUEtiapine FUMARATE 300 MG TABLET PO SCH (22:10)
[2018-03-27] MEDS: THIAMINE HCL 100 MG TABLET (FP) PO SCH (22:10)
[2018-03-27] MEDS: MELATONIN 5 MG TABLETS PO PRN (22:13)
[2018-03-28] MEDS: chlordiazePOXIDE 5 MG CAPSULE PO SCH ×2 (04:22→10:42)
[2018-03-28] MEDS: AMOXICILLIN 500 MG CAPSULE (FP) PO SCH ×3 (05:54→22:16)
[2018-03-28] MEDS: BACLOFEN 10 MG TABLET (FP) PO SCH ×3 (05:54→22:16)
[2018-03-28] MEDS: PANTOPRAZOLE 20 MG TABLET (FP) PO SCH (10:38)
[2018-03-28] MEDS: ASPIRIN 81 MG CHEWABLE TABLETS PO SCH (10:38)
[2018-03-28] MEDS: amLODIPine BESYLATE 5 MG TABLET (FP) PO SCH (10:38)
[2018-03-28] MEDS: PRENATAL VITAMINS W/ FOLIC ACID TABLET (FP) PO SCH (10:39)
[2018-03-28] MEDS: BUDESONIDE/FORMETEROL FUMARATE 160/4.5 mcg INHALER IH SCH ×2 (10:41→22:43)
[2018-03-28] MEDS: COLLOIDAL OATMEAL 1 BAR EACH TP PRN (10:45)
[2018-03-28] MEDS: METHYL SALICYLATE/MENTHOL OINT 30 GM TUBE TP SCH (11:12)
[2018-03-28] MEDS: AMMONIUM LACTATE 12% LOTION 225 GM BOTTLE TP SCH ×2 (11:13→22:43)
[2018-03-28] MEDS: HYDROCORTISONE 1% TOPICAL CREAM 30 GM TUBE TP SCH (11:13)
--- NOTE | 2018-03-28 14:29 | PN ---
S Progress Note (SOAP) Subjective: alert,irritable,interrupted sleep Objective: 03/28/18 14:28 Vital Signs Temperature 96.6 F L 03/28/18 11:42 Pulse Rate 95 H 03/28/18 11:42 Respiratory Rate 16 03/28/18 11:42 Blood Pressure 139/78 03/28/18 11:42 O2 Sat by Pulse Oximetry (%) Assessment: 03/28/18 14:28 withdrawal symptom Plan: continue detox,discharge in am
[2018-03-28] MEDS: chlordiazePOXIDE HCL 10 MG CAPSULE PO SCH ×2 (18:09→22:16)
[2018-03-28] MEDS: VITAMINS A AND D TOPICAL OINTMENT 60 GM TUBE TP SCH ×2 (20:29→23:50)
[2018-03-28] MEDS: MONTELUKAST NA 10 MG TABLET PO SCH (22:16)
[2018-03-28] MEDS: THIAMINE HCL 100 MG TABLET (FP) PO SCH (22:16)
[2018-03-28] MEDS: QUEtiapine FUMARATE 300 MG TABLET PO SCH (22:16)
[2018-03-28] MEDS: MELATONIN 5 MG TABLETS PO PRN (22:16)
[2018-03-29] MEDS: AMOXICILLIN 500 MG CAPSULE (FP) PO SCH (05:44)
[2018-03-29] MEDS: BACLOFEN 10 MG TABLET (FP) PO SCH (05:44)
[2018-03-29] MEDS: chlordiazePOXIDE HCL 10 MG CAPSULE PO SCH (05:44)
[2018-03-29] MEDS: VITAMINS A AND D TOPICAL OINTMENT 60 GM TUBE TP SCH (06:32)
--- NOTE | 2018-03-29 09:01 | DS ---
[facility] Detox Discharge Summary Admission Date: 03/25/18 Discharge Date: 03/29/18 - History Present History: Alcohol Dependence Additional Comments: 57 years old female admitted on 03/25/18 for alcohol withdrawal sx completed alcohol detox regimen tolerated well denies alcohol withdrawal sx alert oriented x 3 no acute distress aftercare [facility] patient agrees to [facility] for medical mental and addiction issues - Physical Exam Results Vital Signs: Vital Signs Temperature 97 F L 03/29/18 08:09 Pulse Rate 89 03/29/18 08:09 Respiratory Rate 20 03/29/18 08:09 Blood Pressure 125/88 03/29/18 08:09 O2 Sat by Pulse Oximetry (%) Pertinent Admission Physical Exam Findings: alcohol withdrawal sx Vital Signs Temperature 97 F L 03/29/18 08:09 Pulse Rate 89 03/29/18 08:09 Respiratory Rate 20 03/29/18 08:09 Blood Pressure 125/88 03/29/18 08:09 O2 Sat by Pulse Oximetry (%) Laboratory Last Values WBC 3.7 K/mm3 (4.0-10.0) L 03/26/18 06:00 RBC 3.93 M/mm3 (3.60-5.2) 03/26/18 06:00 Hgb 13.1 GM/dL (10.7-15.3) 03/26/18 06:00 Hct 38.7 % (32.4-45.2) 03/26/18 06:00 MCV 98.5 fl (80-96) H 03/26/18 06:00 MCH 33.4 pg (25.7-33.7) 03/26/18 06:00 MCHC 33.9 g/dl (32.0-36.0) 03/26/18 06:00 RDW 15.4 % (11.6-15.6) 03/26/18 06:00 Plt Count 249 K/MM3 (134-434) 03/26/18 06:00 MPV 8.2 fl (7.5-11.1) 03/26/18 06:00 Sodium 141 mmol/L (136-145) 03/26/18 06:00 Potassium 3.8 mmol/L (3.5-5.1) 03/26/18 06:00 Chloride 108 mmol/L (98-107) H 03/26/18 06:00 Carbon Dioxide 24 mmol/L (21-32) 03/26/18 06:00 Anion Gap 9 (8-16) 03/26/18 06:00 BUN 14 mg/dL (7-18) 03/26/18 06:00 Creatinine 1.0 mg/dL (0.55-1.02) 03/26/18 06:00 Creat Clearance w eGFR 57.15 (>60) 03/26/18 06:00 Random Glucose 90 mg/dL (74-106) 03/26/18 06:00 Calcium 8.8 mg/dL (8.5-10.1) 03/26/18 06:00 Total Bilirubin 0.5 mg/dL (0.2-1.0) 03/26/18 06:00 AST 19 U/L (15-37) 03/26/18 06:00 ALT 28 U/L (12-78) 03/26/18 06:00 Alkaline Phosphatase 99 U/L (45-117) 03/26/18 06:00 Total Protein 7.3 g/dl (6.4-8.2) 03/26/18 06:00 Albumin 3.7 g/dl (3.4-5.0) 03/26/18 06:00 Urine Color Ltyellow 03/25/18 17:00 Urine Appearance Slcloudy 03/25/18 17:00 Urine pH 5.0 (5.0-8.0) 03/25/18 17:00 Ur Specific [place] 1.017 (1.001-1.035) 03/25/18 17:00 Urine Protein Negative (NEGATIVE) 03/25/18 17:00 Urine Glucose (UA) Negative (NEGATIVE) 03/25/18 17:00 Urine Ketones Negative (NEGATIVE) 03/25/18 17:00 Urine Blood Negative (NEGATIVE) 03/25/18 17:00 Urine Nitrite Negative (NEGATIVE) 03/25/18 17:00 Urine Bilirubin Negative (<2.0 mg/dL) 03/25/18 17:00 Urine Urobilinogen Negative mg/dL (0.2-1.0) 03/25/18 17:00 Ur Leukocyte Esterase Trace (NEGATIVE) 03/25/18 17:00 Urine WBC (Auto) 8 /hpf (3-5) 03/25/18 17:00 Urine RBC (Auto) 4 /hpf (0-3) 03/25/18 17:00 Ur Epithelial Cells Rare /HPF (FEW) 03/25/18 17:00 Urine Bacteria Rare /hpf (NONE SEEN) 03/25/18 17:00 Urine Mucus Rare 03/25/18 17:00 Urine Yeast Few 03/25/18 17:00 RPR Titer Nonreactive (NONREACTIVE) 03/26/18 06:00 HIV 1&2 Antibody Screen Negative 03/25/18 13:00 HIV P24 Antigen Negative 03/25/18 13:00 lab noted health teaching on alcohol misuse related health issues focus of personal hygiene and self management for hypertension tooth decay discuss cigarette smoking related pulmonary issues and asthma episode - Treatment Hospital Course: Detox Protocol Followed, Detoxed Safely, Responded well, Discharged Condition Good, Rehab Referral Accepted Patient has Accepted a Rehab Referral to: [facility] - Medication Discharge Medications: Ambulatory Orders Aspirin [ASA -] 81 mg PO DAILY #30 mg 10/08/17 Fluticasone/Salmeterol [Advair 250-50 Diskus] 1 each IH BID #1 disk.w.dev Risperidone [Risperdal -] 1 mg PO HS #30 tablet 10/08/17 Pantoprazole Sodium [Protonix -] 20 mg PO DAILY #14 tablet.ec 02/22/18 Quetiapine Fumarate [Seroquel -] 300 mg PO HS 03/25/18 Quetiapine Fumarate [Seroquel -] 300 mg PO HS #30 tablet 03/26/18 Albuterol Sulfate Inhaler - [Ventolin HFA Inhaler -] 2 puff IH Q4H PRN #1 inhaler 03/29/18 Amlodipine Besylate [Norvasc -] 5 mg PO DAILY #14 tablet 03/29/18 Hydrochlorothiazide [Hctz -] 12.5 mg PO DAILY #14 cap 03/29/18 Montelukast Na [Singulair -] 10 mg PO HS #14 tablet 03/29/18 - Diagnosis (1) Nicotine dependence Current Visit: Yes Status: Acute Qualifiers: Nicotine product type: cigarettes Substance use status: in withdrawal Qualified Code(s): F17.213 - Nicotine dependence, cigarettes, with withdrawal (2) GERD (gastroesophageal reflux disease) Current Visit: Yes Status: Chronic Qualifiers: Esophagitis presence: without esophagitis Qualified Code(s): K21.9 - Gastro -esophageal reflux disease without esophagitis (3) Asthma Current Visit: Yes Status: Chronic Qualifiers: Asthma severity: mild Asthma persistence: intermittent Asthma complication type: uncomplicated Qualified Code(s): J45.20 - Mild intermittent asthma, uncomplicated (4) Hypertension Current Visit: Yes Status: Chronic Qualifiers: Hypertension type: essential hypertension Qualified Code(s): I10 - Essential (primary) hypertension (5) Positive PPD Current Visit: No Status: Resolved (6) Poor oral hygiene Current Visit: Yes Status: Acute - AMA Did Patient Leave Against Medical Advice: No
[2018-03-29] MEDS: HYDROCORTISONE 1% TOPICAL CREAM 30 GM TUBE TP SCH (09:13)
[2018-03-29] MEDS: ASPIRIN 81 MG CHEWABLE TABLETS PO SCH (09:13)
[2018-03-29] MEDS: METHYL SALICYLATE/MENTHOL OINT 30 GM TUBE TP SCH (09:13)
[2018-03-29] MEDS: AMMONIUM LACTATE 12% LOTION 225 GM BOTTLE TP SCH (09:15)
[2018-03-29] MEDS: PRENATAL VITAMINS W/ FOLIC ACID TABLET (FP) PO SCH (09:15)
[2018-03-29] MEDS: BUDESONIDE/FORMETEROL FUMARATE 160/4.5 mcg INHALER IH SCH (09:15)
[2018-03-29] MEDS: PANTOPRAZOLE 20 MG TABLET (FP) PO SCH (09:15)
[2018-03-29 10:29] VITALS: BP 137/85; PULSE 106; TEMP 98.1
== END 2018-03-29 09:50 | disposition home or self-care (01) | DRG 774 ==
LOC: YASAS 08:38 → Y6N 13:11
PROVIDERS: ADMIT Surgery; ATTEND Surgery
PROC: HZ2ZZZZ Detoxification Services for Substance Abuse Treatment (ICD-10-PCS; principal; 2018-03-25)
DX: F10.230 Alcohol dependence with withdrawal, uncomplicated (principal); F14.20 Cocaine dependence, uncomplicated; F17.213 Nicotine dependence, cigarettes, with withdrawal; F19.24 Other psychoactive substance dependence with psychoactive substance-induced mood disorder; I10 Essential (primary) hypertension; J45.20 Mild intermittent asthma, uncomplicated; K21.9 Gastro-esophageal reflux disease without esophagitis; R76.11 Nonspecific reaction to tuberculin skin test without active tuberculosis; B35.3 Tinea pedis; Z86.59 Personal history of other mental and behavioral disorders; Z87.440 Personal history of urinary (tract) infections; R46.0 Very low level of personal hygiene
CPT/HCPCS: 36415; 80053; 81003; 81015; 85027; 86593; 87389; 93005; 93010; J0475

== ENCOUNTER 2018-04-28 17:44 | Inpatient (IN) | payer OTHER ==
[2018-04-28 19:09] VITALS: BMI 32.8
--- NOTE | 2018-04-28 19:53 | HP ---
CIWA Score - CIWA Score Nausea/Vomitin-No Nausea/No Vomiting Muscle Tremors: 2 Anxiety: 5 Agitation: 4-Moderately Restless Paroxysmal Sweats: 2 Orientation: 0-Oriented Tacttile Disturbances: 1-Very Mild Itch/Numbness Auditory Disturbances: 0-None Visual Disturbances: 0-None Headache: 0-None Present CIWA-Ar Total Score: 14 Admission ROS S - HPI Chief Complaint: alcohol withdrawal symptoms Allergies/Adverse Reactions: Allergies Allergy/AdvReac Type Severity Reaction Status Date / Time mushroom Allergy Severe Rash Verified 04/28/18 19:55 No Known Drug Allergies Allergy Verified 04/28/18 19:55 salmon Allergy Severe Difficulty Uncoded 04/28/18 19:55 Breathing History of Present Illness: 57 yo female with hx of nicotine, crack/cocaine dependence is here seeking detox. Last detox [facility] 03/25/18 03/29/18. Patient reports no significant period of sobriety. PMHX: GERD, asthma, HTN, OA, insomnia, schizophrenia and bipolar. Denies suicidal / homicidal ideation. Denies visual or auditory hallucinations. Denies hx of seizures or blackouts. Exam Limitations: No Limitations - Ebola screening Have you traveled outside of the country in the last 21 days: No (N) Have you had contact with anyone from an Ebola affected area: No Have you been sick,other than usual withdrawal symptoms: No Do you have a fever: No - Review of Systems Constitutional: Chills, Diaphoresis, Changes in sleep, Other (weight gain) EENT: reports: Dental Problems (poor dentition, poor follow up with dental care) Respiratory: reports: No Symptoms reported Cardiac: reports: No Symptoms Reported GI: reports: Constipated, Poor Fluid Intake, Abdominal cramping : reports: Incontinence (reports ocassional periods of incontinence) Musculoskeletal: reports: Joint Pain (bilateral OA knee), Other (uses cane for ambulation) Integumentary: reports: No Symptoms Reported Neuro: reports: No Symptoms reported Endocrine: reports: Increased Thirst Hematology: reports: No Symptoms Reported Psychiatric: reports: Orientated x3, Agitated, Anxious Other Systems: Reviewed and Negative Patient History - Patient Medical History Hx Anemia: Yes (HX/O,no med) Hx Asthma: Yes (on albuterol inhaler) Hx Chronic Obstructive Pulmonary Disease (COPD): No Hx Cancer: No Hx Cardiac Disorders: No Hx Congestive Heart Failure: No Hx Hypertension: Yes (on med) Hx Hypercholesterolemia: No Hx Pacemaker: No HX Cerebrovascular Accident: No Hx Seizures: No Hx Dementia: No Hx Diabetes: No Hx Gastrointestinal Disorders: Yes (acid reflux) Hx Liver Disease: No Hx Genitourinary Disorders: No Hx Sexually Transmitted Disorders: No Hx Renal Disease (ESRD): No Hx Thyroid Disease: No Hx Human Immunodeficiency Virus (HIV): No (last 2017 negative) Hx Hepatitis C: No Hx Depression: Yes (on med) Hx Suicide Attempt: No Hx Bipolar Disorder: Yes Hx Schizophrenia: Yes - Patient Surgical History Past Surgical History: Yes Hx Neurologic Surgery: No Hx Cataract Extraction: No Hx Cardiac Surgery: No Hx Lung Surgery: No Hx Breast Surgery: No Hx Breast Biopsy: No Hx Abdominal Surgery: No Hx Appendectomy: No Hx Cholecystectomy: No Hx Genitourinary Surgery: No Hx Section: Yes (x2) Hx Orthopedic Surgery: Yes (right ankle fx at age 18) Hx Hysterectomy: No Anesthesia Reaction: No - PPD History Results: cxr(-)11/10/17 PPD to be Administered?: No - Reproductive History Patient is a Female of Child Bearing Age (11 -55 yrs old): No Last Menstrual Period: 05/08/90 Patient : No - Smoking Cessation Smoking history: Current some day smoker Have you smoked in the past 12 months: Yes Aproximately how many cigarettes per day: 20 Cigars Per Day: 0 Hx Chewing Tobacco Use: No Initiated information on smoking cessation: Yes 'Breaking Loose' booklet given: 04/28/18 - Substance & Tx. History Hx Alcohol Use: Yes Hx Substance Use: Yes Substance Use Type: Alcohol Hx Substance Use Treatment: Yes (Last detox [facility] 03/25/18 03/29/18. ) - Substances Abused Alcohol Route: Oral Frequency: Daily Amount used: 10 CANS BEER - LIQUOR Age of first use: 10 Date of Last Use: 04/27/18 Crack Route: Smoking Frequency: 3-6 times per week Amount used: $100 Age of first use: 28 Date of Last Use: 04/27/18 Family Disease History - Family Disease History Family Disease History: Heart Disease: Father (), Mother (), Other: Brother (only child) Admission Physical Exam [facility] - Vital Signs Vital Signs: Vital Signs - 24 hr 04/28/18 19:07 Temperature 98.9 F Pulse Rate 93 H Respiratory 18 Rate Blood Pressure 141/81 - Physical General Appearance: Yes: Disheveled, Mild Distress, Obese, Irritable, Anxious, Other (restless) HEENTM: Yes: Hearing grossly Normal, Normal ENT Inspection, Normocephalic, Normal Voice, COLIN, Pharynx Normal, Tm's normal, Other (poor dentition, multiple caries) Respiratory: Yes: Chest Non-Tender, Lungs Clear, Normal Breath Sounds, No Respiratory Distress, No Accessory Muscle Use Neck: Yes: Within Normal Limits Breast: Yes: Breast Exam Deferred Cardiology: Yes: Regular Rhythm, Regular Rate Abdominal: Yes: Normal Bowel Sounds, Non Tender, Soft, Protuberent Genitourinary: Yes: Within Normal Limits Back: Yes: Normal Inspection Musculoskeletal: Yes: full range of Motion, Gait Steady, Pelvis Stable Extremities: Yes: Normal Capillary Refill, Normal Inspection, Normal Range of Motion, Non-Tender Neurological: Yes: audio production manager II-XII NML intact, Fully Oriented, Alert, Motor Strength 5/5, Depressed Affect Integumentary: Yes: Normal Color, Warm, Diaphoresis Lymphatic: Yes: Within Normal Limits - Diagnostic (1) Poor dentition Current Visit: Yes Status: Acute (2) Alcohol dependence with uncomplicated withdrawal Current Visit: Yes Status: Acute (3) Cocaine dependence, uncomplicated Current Visit: Yes Status: Acute (4) Nicotine dependence Current Visit: No Status: Acute Qualifiers: Nicotine product type: cigarettes Substance use status: in withdrawal Qualified Code(s): F17.213 - Nicotine dependence, cigarettes, with withdrawal (5) Arthritis Current Visit: Yes Status: Chronic (6) Asthma Current Visit: Yes Status: Chronic Qualifiers: Asthma severity: mild Asthma persistence: intermittent Asthma complication type: uncomplicated Qualified Code(s): J45.20 - Mild intermittent asthma, uncomplicated (7) GERD (gastroesophageal reflux disease) Current Visit: Yes Status: Chronic Qualifiers: Esophagitis presence: without esophagitis Qualified Code(s): K21.9 - Gastro -esophageal reflux disease without esophagitis (8) Hypertension Current Visit: Yes Status: Chronic Qualifiers: Hypertension type: essential hypertension Qualified Code(s): I10 - Essential (primary) hypertension Cleared for Admission S - Detox or Rehab S Level of Care: Medically Managed Detox Regimen/Protocol: Librium BHS Breath Alcohol Content Breath Alcohol Content: 0 Urine Pregancy Test - Result Urine Test Results: Negative- NO Line Present Urine Drug Screen - Results Drug Screen Negative: No Urine Drug Screen Results: KULWINDER-Cocaine
[2018-04-28] MEDS ORDERED: MAGNESIUM CITRATE 300 ML BOTTLE PO PRN (19:57)
[2018-04-28] MEDS ORDERED: MAG HYDROX/AL HYDROX/SIMETH 30 ML UNIT-DOSE CUP PO PRN (19:57)
[2018-04-28] MEDS ORDERED: MAGNESIUM HYDROX 2400MG/30ML ORAL SUSPENSION 30 ML CUP PO PRN (19:57)
[2018-04-28] MEDS ORDERED: MENTHOL/PHENOL 1 EACH UD MM PRN (19:57)
[2018-04-28] MEDS ORDERED: chlordiazePOXIDE HCL 25 MG CAPSULE PO PRN (19:57)
[2018-04-28] MEDS ORDERED: LOPERAMIDE HCL 2 MG CAPSULE PO PRN (19:57)
[2018-04-28] MEDS ORDERED: guaiFENesin/D-METHORPHAN HB 10 ML UNIT-DOSE CUPS PO PRN (19:57)
[2018-04-28] MEDS ORDERED: P-EPHED 60MG/TRIPROLIDI 2.5MG TABLET PO PRN (19:57)
[2018-04-28] MEDS ORDERED: NICOTINE POLACRILEX 2 MG GUM BUC PRN (19:57)
[2018-04-28] MEDS ORDERED: ACETAMINOPHEN 325 MG TABLET (FP) PO PRN (19:57)
[2018-04-28] MEDS ORDERED: COLLOIDAL OATMEAL 1 BAR EACH TP PRN (20:00)
[2018-04-28] MEDS ORDERED: chlordiazePOXIDE HCL 25 MG CAPSULE PO ONE (20:15)
[2018-04-28] MEDS ORDERED: MELATONIN 5 MG TABLETS PO PRN (22:00)
[2018-04-28] MEDS: hydrOXYzine PAMOATE 50 MG CAPSULE (FP) PO PRN (22:27)
[2018-04-28] MEDS: chlordiazePOXIDE HCL 25 MG CAPSULE PO SCH (22:27)
[2018-04-28] MEDS: THIAMINE HCL 100 MG TABLET (FP) PO SCH (22:28)
[2018-04-28] MEDS ORDERED: ALBUTEROL SO4 8 GM HFA INHALER IH PRN (23:12)
[2018-04-29 00:13] LABS: URINE APPEARANCE TURBID; URINE BILIRUBIN NEGATIVE (<2.0 mg/dL); URINE COLOR YELLOW; URINE GLUCOSE (UA) NEGATIVE (NEGATIVE); URINE KETONE NEGATIVE (NEGATIVE); URINE NITRITE POSITIVE (NEGATIVE); URINE PROTEIN NEGATIVE (NEGATIVE); URINE UROBILINOGEN NEGATIVE mg/dL (0.2-1.0)
[2018-04-29 00:34] LABS: URINE LEUK ESTERASE 2+ (NEGATIVE)
[2018-04-29 00:58] LABS: URINE BACTERIA RARE /hpf (NONE SEEN); URINE MUCUS FEW
[2018-04-29] MEDS: chlordiazePOXIDE HCL 25 MG CAPSULE PO SCH ×4 (06:12→22:19)
--- NOTE | 2018-04-29 09:39 | PN ---
S CIWA - CIWA Score Nausea/Vomitin Muscle Tremors: 3 Anxiety: 3 Agitation: 2 Paroxysmal Sweats: 1-Minimal Palms Moist Orientation: 0-Oriented Tacttile Disturbances: 1-Very Mild Itch/Numbness Auditory Disturbances: 1-Very Mild Visual Disturbances: 0-None Headache: 2-Mild CIWA-Ar Total Score: 16 BHS Progress Note (SOAP) Subjective: alert,irritable,anxious,interrupted sleep,tremor Objective: 04/29/18 09:37 Vital Signs Temperature 97.9 F 04/29/18 06:56 Pulse Rate 82 04/29/18 06:56 Respiratory Rate 18 04/29/18 06:56 Blood Pressure 113/69 04/29/18 06:56 O2 Sat by Pulse Oximetry (%) Laboratory Last Values Urine Color Yellow 04/28/18 22:00 Urine Appearance Turbid 04/28/18 22:00 Urine pH 5.0 (5.0-8.0) 04/28/18 22:00 Ur Specific [place] 1.019 (1.001-1.035) 04/28/18 22:00 Urine Protein Negative (NEGATIVE) 04/28/18 22:00 Urine Glucose (UA) Negative (NEGATIVE) 04/28/18 22:00 Urine Ketones Negative (NEGATIVE) 04/28/18 22:00 Urine Blood Negative (NEGATIVE) 04/28/18 22:00 Urine Nitrite Positive (NEGATIVE) 04/28/18 22:00 Urine Bilirubin Negative (<2.0 mg/dL) 04/28/18 22:00 Urine Urobilinogen Negative mg/dL (0.2-1.0) 04/28/18 22:00 Ur Leukocyte Esterase 2+ (NEGATIVE) H 04/28/18 22:00 Urine WBC (Auto) 60 /hpf (3-5) 04/28/18 22:00 Urine RBC (Auto) 5 /hpf (0-3) 04/28/18 22:00 Urine Bacteria Rare /hpf (NONE SEEN) 04/28/18 22:00 Urine Mucus Few 04/28/18 22:00 lab pending Assessment: 04/29/18 09:38 withdrawal symptom Plan: continue detox,repeat ua,encourage oral fluid
[2018-04-29] MEDS: PANTOPRAZOLE 20 MG TABLET (FP) PO SCH (10:12)
[2018-04-29] MEDS: hydrOXYzine PAMOATE 50 MG CAPSULE (FP) PO PRN (10:12)
[2018-04-29] MEDS: HYDROCHLOROTHIAZIDE 12.5 MG CAPSULE (FP) PO SCH (10:12)
[2018-04-29] MEDS: PRENATAL VITAMINS W/ FOLIC ACID TABLET (FP) PO SCH (10:12)
[2018-04-29] MEDS: NICOTINE 14 MG/24 HOURS TOPICAL PATCH TD SCH (10:12)
[2018-04-29] MEDS: ASPIRIN 81 MG CHEWABLE TABLETS PO SCH (10:12)
--- NOTE | 2018-04-29 10:23 | CONSULT ---
[facility] Psychiatric Consult - Data Date of interview: 04/29/18 Admission source: [facility] Identifying data: 57 yo female with hx of nicotine, crack/cocaine dependence is here seeking detox. Last detox [facility] 03/25/18 03/29/18. Patient reports no significant period of sobriety. PMHX: GERD, asthma, HTN, OA, insomnia, schizophrenia and bipolar. Denies suicidal / homicidal ideation. Denies visual or auditory hallucinations. Denies hx of seizures or blackouts. Substance Abuse History: Smoking history: Current some day smoker. Have you smoked in the past 12 months: Yes. Aproximately how many cigarettes per day: 20. Cigars Per Day: 0. Hx Chewing Tobacco Use: No. Initiated information on smoking cessation: Yes. 'Breaking Loose' booklet given: 04/28/18. - Substance & Tx. History. Hx Alcohol Use: Yes. Hx Substance Use: Yes. Substance Use Type : Alcohol. Hx Substance Use Treatment: Yes (Last detox [facility] 03/25/18 03/29/18. ) . - Substances Abused. Alcohol. Route: Oral. Frequency: Daily. Amount used: 10 CANS BEER - LIQUOR. Age of first use: 10. Date of Last Use: . Crack. Route: Smoking. Frequency: 3-6 times per week. Amount used: $ 100. Age of first use: 28. Date of Last Use: 04/27/18 Medical History: Asthma, Arthritis history, GERD, HTN, PPD + history, UTI history Psychiatric History: Patient reports history of Shizophrenia, as per computer - Schizoaffective disorder history, reports taking prior to admission: Seroquel 300mg po qhs. Denies psychiatric hospitralization history, denies suicidal, homicidal history. RTeports auditory hallucinations on and off, as a base line condition. Physical/Sexual Abuse/Trauma History: Unclear Additional Comment: Seroquel 300mg po qhs Mental Status Exam - Mental Status Exam Alert and Oriented to: Person Cognitive Function: Fair Patient Appearance: Unkempt Mood: Sad Affect: Flat Patient Behavior: Fatigued Speech Pattern: Delayed Voice Loudness: Mildly Soft/Quiet Thought Process: Circumstantial, Goal Oriented Thought Disorder: Being Controlled Hallucinations: Denies Suicidal Ideation: Denies Homicidal Ideation: Denies Insight/Judgement: Fair Sleep: Difficulty falling asleep Appetite: Weight gain Muscle strength/Tone: Mild Hypotonicity Gait/Station: Shuffling Additional Comments: Seroquel 300mg po qhs Psychiatric Findings - Problem List ([place] 1, 2,3) (1) Alcohol dependence with uncomplicated withdrawal Current Visit: Yes Status: Acute (2) Cocaine dependence, uncomplicated Current Visit: Yes Status: Acute (3) Arthritis Current Visit: Yes Status: Chronic (4) Asthma Current Visit: Yes Status: Chronic Qualifiers: Asthma severity: mild Asthma persistence: intermittent Asthma complication type: uncomplicated Qualified Code(s): J45.20 - Mild intermittent asthma, uncomplicated (5) GERD (gastroesophageal reflux disease) Current Visit: Yes Status: Chronic Qualifiers: Esophagitis presence: without esophagitis Qualified Code(s): K21.9 - Gastro -esophageal reflux disease without esophagitis (6) Hypertension Current Visit: Yes Status: Chronic Qualifiers: Hypertension type: essential hypertension Qualified Code(s): I10 - Essential (primary) hypertension (7) Nicotine dependence Current Visit: No Status: Acute Qualifiers: Nicotine product type: cigarettes Substance use status: in withdrawal Qualified Code(s): F17.213 - Nicotine dependence, cigarettes, with withdrawal (8) Substance induced mood disorder Current Visit: No Status: Acute (9) Alcohol dependence Current Visit: No Status: Chronic (10) Dental caries Current Visit: No Status: Chronic (11) Schizoaffective disorder Current Visit: No Status: Suspected Qualifiers: Schizoaffective disorder type: other Comment: As per history.No adherence to OPD care. (12) Positive PPD Current Visit: No Status: Resolved (13) UTI (urinary tract infection) Current Visit: No Status: Resolved Qualifiers: Urinary tract infection type: site unspecified Hematuria presence: without hematuria Qualified Code(s): N39.0 - Urinary tract infection, site not specified - Initial Treatment Plan Initial Treatment Plan: Seroquel 300mg po qhs
[2018-04-29 11:08] LABS: HEMATOCRIT 38.2 % (32.4-45.2); HEMOGLOBIN 12.5 GM/dL (10.7-15.3); MCH 32.6 pg (25.7-33.7); MCHC 32.7 g/dl (32.0-36.0); MEAN CELL VOLUME 99.8 fl (80-96); MEAN PLT VOLUME 7.6 fl (7.5-11.1); PLATELET COUNT 221 K/MM3 (134-434); RBC 3.83 M/mm3 (3.60-5.2); RDW 15.9 % (11.6-15.6); WHITE BLOOD COUNT 3.1 K/mm3 (4.0-10.0)
[2018-04-29 11:28] LABS: ALBUMIN 2.9 g/dl (3.4-5.0); ANION GAP 8 MMOL/L (8-16); BLOOD UREA NITROGEN 10 mg/dL (7-18); CALCIUM 8.5 mg/dL (8.5-10.1); CHLORIDE 111 mmol/L (98-107); CO2 28 mmol/L (21-32); CREATININE 0.8 mg/dL (0.55-1.02); GLUCOSE,RANDOM 91 mg/dL (74-106); POTASSIUM 3.6 mmol/L (3.5-5.1); SGOT/AST 28 U/L (15-37); SGPT/ALT 31 U/L (12-78); SODIUM 147 mmol/L (136-145)
[2018-04-29 11:42] LABS: ALK PHOS 80 U/L (45-117); BILIRUBIN,TOTAL 0.3 mg/dL (0.2-1.0); TOT PROT 5.7 g/dl (6.4-8.2)
[2018-04-29] MEDS: AMOXICILLIN 500 MG CAPSULE (FP) PO SCH ×2 (13:14→22:14)
[2018-04-29] MEDS: LIDOCAINE 5% TOPICAL PATCH TP SCH (13:14)
[2018-04-29] MEDS: TOLNAFTATE 1% CREAM 15 GM TUBE TP SCH ×2 (13:14→22:18)
--- NOTE | 2018-04-29 20:14 | EKG ---
Test Reason : Blood Pressure : / mmHG Vent. Rate : 078 BPM Atrial Rate : 078 BPM P-R Int : 134 ms QRS Dur : 082 ms QT Int : 406 ms P-R-T Axes : 068 055 053 degrees QTc Int : 462 ms NORMAL SINUS RHYTHM NORMAL ECG WHEN COMPARED WITH ECG OF 25-MAR-2018 14:05, NO SIGNIFICANT CHANGE WAS FOUND Confirmed by SHEILA MEEKS MD ([id number]) on 04/29/2018 8:14:42 PM Referred By: Confirmed By:SHEILA MEEKS MD
[2018-04-29] MEDS: THIAMINE HCL 100 MG TABLET (FP) PO SCH (22:13)
[2018-04-29] MEDS: MONTELUKAST NA 10 MG TABLET PO SCH (22:14)
[2018-04-29] MEDS: QUEtiapine FUMARATE 300 MG TABLET PO SCH (22:14)
[2018-04-29] MEDS: LIDOCAINE PATCH REMOVAL MC SCH (22:15)
[2018-04-29] MEDS: AMMONIUM LACTATE 12% LOTION 225 GM BOTTLE TP SCH (22:18)
[2018-04-29] MEDS: IBUPROFEN 400 MG TABLET (FP) PO PRN (22:46)
[2018-04-30] MEDS: chlordiazePOXIDE HCL 25 MG CAPSULE PO SCH ×4 (04:18→18:09)
[2018-04-30] MEDS: AMOXICILLIN 500 MG CAPSULE (FP) PO SCH ×3 (05:08→22:33)
--- NOTE | 2018-04-30 08:58 | PN ---
S CIWA - CIWA Score Nausea/Vomitin Muscle Tremors: 3 Anxiety: 3 Agitation: 2 Paroxysmal Sweats: 1-Minimal Palms Moist Orientation: 0-Oriented Tacttile Disturbances: 1-Very Mild Itch/Numbness Auditory Disturbances: 1-Very Mild Visual Disturbances: 0-None Headache: 2-Mild CIWA-Ar Total Score: 16 S Progress Note (SOAP) Subjective: alert,irritable,anxious,interrupted sleep,tremor Objective: 04/30/18 08:56 Vital Signs Temperature 96.1 F L 04/30/18 06:33 Pulse Rate 71 04/30/18 06:33 Respiratory Rate 18 04/30/18 06:33 Blood Pressure 118/78 04/30/18 06:33 O2 Sat by Pulse Oximetry (%) 04/30/18 08:56 Laboratory Last Values WBC 3.1 K/mm3 (4.0-10.0) L 04/29/18 07:00 RBC 3.83 M/mm3 (3.60-5.2) 04/29/18 07:00 Hgb 12.5 GM/dL (10.7-15.3) 04/29/18 07:00 Hct 38.2 % (32.4-45.2) 04/29/18 07:00 MCV 99.8 fl (80-96) H 04/29/18 07:00 MCH 32.6 pg (25.7-33.7) 04/29/18 07:00 MCHC 32.7 g/dl (32.0-36.0) 04/29/18 07:00 RDW 15.9 % (11.6-15.6) H 04/29/18 07:00 Plt Count 221 K/MM3 (134-434) 04/29/18 07:00 MPV 7.6 fl (7.5-11.1) 04/29/18 07:00 Sodium 147 mmol/L (136-145) H 04/29/18 07:00 Potassium 3.6 mmol/L (3.5-5.1) 04/29/18 07:00 Chloride 111 mmol/L (98-107) H 04/29/18 07:00 Carbon Dioxide 28 mmol/L (21-32) 04/29/18 07:00 Anion Gap 8 MMOL/L (8-16) 04/29/18 07:00 BUN 10 mg/dL (7-18) 04/29/18 07:00 Creatinine 0.8 mg/dL (0.55-1.02) 04/29/18 07:00 Creat Clearance w eGFR > 60 (>60) 04/29/18 07:00 Random Glucose 91 mg/dL (74-106) 04/29/18 07:00 Calcium 8.5 mg/dL (8.5-10.1) 04/29/18 07:00 Total Bilirubin 0.3 mg/dL (0.2-1.0) 04/29/18 07:00 AST 28 U/L (15-37) 04/29/18 07:00 ALT 31 U/L (12-78) 04/29/18 07:00 Alkaline Phosphatase 80 U/L (45-117) 04/29/18 07:00 Total Protein 5.7 g/dl (6.4-8.2) L 04/29/18 07:00 Albumin 2.9 g/dl (3.4-5.0) L 04/29/18 07:00 Urine Color Yellow 04/28/18 22:00 Urine Appearance Turbid 04/28/18 22:00 Urine pH 5.0 (5.0-8.0) 04/28/18 22:00 Ur Specific [place] 1.019 (1.001-1.035) 04/28/18 22:00 Urine Protein Negative (NEGATIVE) 04/28/18 22:00 Urine Glucose (UA) Negative (NEGATIVE) 04/28/18 22:00 Urine Ketones Negative (NEGATIVE) 04/28/18 22:00 Urine Blood Negative (NEGATIVE) 04/28/18 22:00 Urine Nitrite Positive (NEGATIVE) 04/28/18 22:00 Urine Bilirubin Negative (<2.0 mg/dL) 04/28/18 22:00 Urine Urobilinogen Negative mg/dL (0.2-1.0) 04/28/18 22:00 Ur Leukocyte Esterase 2+ (NEGATIVE) H 04/28/18 22:00 Urine WBC (Auto) 60 /hpf (3-5) 04/28/18 22:00 Urine RBC (Auto) 5 /hpf (0-3) 04/28/18 22:00 Urine Bacteria Rare /hpf (NONE SEEN) 04/28/18 22:00 Urine Mucus Few 04/28/18 22:00 RPR Titer Nonreactive (NONREACTIVE) 04/29/18 07:00 Assessment: 04/30/18 08:57 withdrawal symptom Plan: continue detox,repeat ua pending
[2018-04-30 10:17] LABS: URINE APPEARANCE SLCLOUDY; URINE BILIRUBIN NEGATIVE (<2.0 mg/dL); URINE COLOR YELLOW; URINE GLUCOSE (UA) NEGATIVE (NEGATIVE); URINE KETONE NEGATIVE (NEGATIVE); URINE NITRITE POSITIVE (NEGATIVE); URINE PROTEIN NEGATIVE (NEGATIVE); URINE UROBILINOGEN NEGATIVE mg/dL (0.2-1.0)
[2018-04-30 10:18] LABS: URINE LEUK ESTERASE 3+ (NEGATIVE)
[2018-04-30 10:48] LABS: EPI CELLS RARE /HPF (FEW); URINE BACTERIA MANY /hpf (NONE SEEN)
[2018-04-30] MEDS: LIDOCAINE 5% TOPICAL PATCH TP SCH (11:25)
[2018-04-30] MEDS: PRENATAL VITAMINS W/ FOLIC ACID TABLET (FP) PO SCH (11:26)
[2018-04-30] MEDS: HYDROCHLOROTHIAZIDE 12.5 MG CAPSULE (FP) PO SCH (11:26)
[2018-04-30] MEDS: PANTOPRAZOLE 20 MG TABLET (FP) PO SCH (11:26)
[2018-04-30] MEDS: ASPIRIN 81 MG CHEWABLE TABLETS PO SCH (11:26)
[2018-04-30] MEDS: NICOTINE 14 MG/24 HOURS TOPICAL PATCH TD SCH (11:26)
[2018-04-30] MEDS: TOLNAFTATE 1% CREAM 15 GM TUBE TP SCH ×2 (11:26→22:35)
[2018-04-30] MEDS: AMMONIUM LACTATE 12% LOTION 225 GM BOTTLE TP SCH ×2 (11:27→22:35)
[2018-04-30] MEDS: QUEtiapine FUMARATE 300 MG TABLET PO SCH (22:33)
[2018-04-30] MEDS: MONTELUKAST NA 10 MG TABLET PO SCH (22:33)
[2018-04-30] MEDS: THIAMINE HCL 100 MG TABLET (FP) PO SCH (22:33)
[2018-04-30] MEDS: LIDOCAINE PATCH REMOVAL MC SCH (22:35)
[2018-04-30 22:43] VITALS: BP 120/68; PULSE 90; TEMP 97.9
[2018-04-30] MEDS: chlordiazePOXIDE 5 MG CAPSULE PO SCH (23:21)
[2018-05-01] MEDS: chlordiazePOXIDE 5 MG CAPSULE PO SCH ×2 (04:25→11:00)
[2018-05-01] MEDS: IBUPROFEN 400 MG TABLET (FP) PO PRN (04:27)
[2018-05-01] MEDS: AMOXICILLIN 500 MG CAPSULE (FP) PO SCH (05:46)
--- NOTE | 2018-05-01 09:10 | PN ---
S Progress Note (SOAP) Subjective: alert,interrupted sleep,low back pain Objective: 05/01/18 09:07 Vital Signs Temperature 97.9 F 04/30/18 22:43 Pulse Rate 90 04/30/18 22:43 Respiratory Rate 16 05/01/18 03:30 Blood Pressure 120/68 04/30/18 22:43 O2 Sat by Pulse Oximetry (%) Assessment: 05/01/18 09:10 withdrawal symptom Plan: continnue detox
[2018-05-01] MEDS ORDERED: CYCLOBENZAPRINE HCL 10 MG TABLET (FP) PO PRN (09:56)
[2018-05-01] MEDS: AMMONIUM LACTATE 12% LOTION 225 GM BOTTLE TP SCH (11:00)
[2018-05-01] MEDS: HYDROCHLOROTHIAZIDE 12.5 MG CAPSULE (FP) PO SCH (11:00)
[2018-05-01] MEDS: LIDOCAINE 5% TOPICAL PATCH TP SCH (11:00)
[2018-05-01] MEDS: PRENATAL VITAMINS W/ FOLIC ACID TABLET (FP) PO SCH (11:00)
[2018-05-01] MEDS: PANTOPRAZOLE 20 MG TABLET (FP) PO SCH (11:00)
[2018-05-01] MEDS: TOLNAFTATE 1% CREAM 15 GM TUBE TP SCH (11:00)
[2018-05-01] MEDS: ASPIRIN 81 MG CHEWABLE TABLETS PO SCH (11:00)
[2018-05-01] MEDS: NICOTINE 14 MG/24 HOURS TOPICAL PATCH TD SCH (11:00)
--- NOTE | 2018-05-01 11:35 | PN ---
[facility] Progress Note Note: patient is stable to be discharge today to [facility]
--- NOTE | 2018-05-01 11:39 | DS ---
[facility] Detox Discharge Summary Admission Date: 04/28/18 Discharge Date: 05/01/18 - History Present History: Alcohol Dependence, Cocaine Dependence Pertinent Past History: nicotine dependence arthritis poor dentition asthma gerd hypertension low back pain - Physical Exam Results Vital Signs: Vital Signs Temperature 97.9 F 04/30/18 22:43 Pulse Rate 90 04/30/18 22:43 Respiratory Rate 16 05/01/18 03:30 Blood Pressure 120/68 04/30/18 22:43 O2 Sat by Pulse Oximetry (%) Pertinent Admission Physical Exam Findings: withdrawal signs and symptom Laboratory Last Values WBC 3.1 K/mm3 (4.0-10.0) L 04/29/18 07:00 RBC 3.83 M/mm3 (3.60-5.2) 04/29/18 07:00 Hgb 12.5 GM/dL (10.7-15.3) 04/29/18 07:00 Hct 38.2 % (32.4-45.2) 04/29/18 07:00 MCV 99.8 fl (80-96) H 04/29/18 07:00 MCH 32.6 pg (25.7-33.7) 04/29/18 07:00 MCHC 32.7 g/dl (32.0-36.0) 04/29/18 07:00 RDW 15.9 % (11.6-15.6) H 04/29/18 07:00 Plt Count 221 K/MM3 (134-434) 04/29/18 07:00 MPV 7.6 fl (7.5-11.1) 04/29/18 07:00 Sodium 147 mmol/L (136-145) H 04/29/18 07:00 Potassium 3.6 mmol/L (3.5-5.1) 04/29/18 07:00 Chloride 111 mmol/L (98-107) H 04/29/18 07:00 Carbon Dioxide 28 mmol/L (21-32) 04/29/18 07:00 Anion Gap 8 MMOL/L (8-16) 04/29/18 07:00 BUN 10 mg/dL (7-18) 04/29/18 07:00 Creatinine 0.8 mg/dL (0.55-1.02) 04/29/18 07:00 Creat Clearance w eGFR > 60 (>60) 04/29/18 07:00 Random Glucose 91 mg/dL (74-106) 04/29/18 07:00 Calcium 8.5 mg/dL (8.5-10.1) 04/29/18 07:00 Total Bilirubin 0.3 mg/dL (0.2-1.0) 04/29/18 07:00 AST 28 U/L (15-37) 04/29/18 07:00 ALT 31 U/L (12-78) 04/29/18 07:00 Alkaline Phosphatase 80 U/L (45-117) 04/29/18 07:00 Total Protein 5.7 g/dl (6.4-8.2) L 04/29/18 07:00 Albumin 2.9 g/dl (3.4-5.0) L 04/29/18 07:00 Urine Color Yellow 04/30/18 09:00 Urine Appearance Slcloudy 04/30/18 09:00 Urine pH 6.0 (5.0-8.0) 04/30/18 09:00 Ur Specific [place] 1.014 (1.001-1.035) 04/30/18 09:00 Urine Protein Negative (NEGATIVE) 04/30/18 09:00 Urine Glucose (UA) Negative (NEGATIVE) 04/30/18 09:00 Urine Ketones Negative (NEGATIVE) 04/30/18 09:00 Urine Blood Negative (NEGATIVE) 04/30/18 09:00 Urine Nitrite Positive (NEGATIVE) 04/30/18 09:00 Urine Bilirubin Negative (<2.0 mg/dL) 04/30/18 09:00 Urine Urobilinogen Negative mg/dL (0.2-1.0) 04/30/18 09:00 Ur Leukocyte Esterase 3+ (NEGATIVE) H 04/30/18 09:00 Urine WBC (Auto) 33 /hpf (3-5) 04/30/18 09:00 Urine RBC (Auto) None /hpf (0-3) 04/30/18 09:00 Ur Epithelial Cells Rare /HPF (FEW) 04/30/18 09:00 Urine Bacteria Many /hpf (NONE SEEN) 04/30/18 09:00 Urine Mucus Few 04/28/18 22:00 RPR Titer Nonreactive (NONREACTIVE) 04/29/18 07:00 Vital Signs Temperature 97.9 F 04/30/18 22:43 Pulse Rate 90 04/30/18 22:43 Respiratory Rate 16 05/01/18 03:30 Blood Pressure 120/68 04/30/18 22:43 O2 Sat by Pulse Oximetry (%) - Treatment Hospital Course: Detox Protocol Followed, Detoxed Safely, Responded well, Discharged Condition Good, Rehab Referral Accepted Patient has Accepted a Rehab Referral to: [facility] - Medication Discharge Medications: Ambulatory Orders Aspirin [ASA -] 81 mg PO DAILY #30 mg 10/08/17 Fluticasone/Salmeterol [Advair 250-50 Diskus] 1 each IH BID #1 disk.w.dev Pantoprazole Sodium [Protonix -] 20 mg PO DAILY #14 tablet.ec 02/22/18 Albuterol Sulfate Inhaler - [Ventolin HFA Inhaler -] 2 puff IH Q4H PRN #1 inhaler 03/29/18 Hydrochlorothiazide [Hctz -] 12.5 mg PO DAILY #14 cap 03/29/18 Montelukast Na [Singulair -] 10 mg PO HS #14 tablet 03/29/18 Quetiapine Fumarate [Seroquel -] 300 mg PO HS #30 tablet 04/29/18 - Diagnosis (1) Alcohol dependence with uncomplicated withdrawal Current Visit: Yes Status: Acute (2) Cocaine dependence, uncomplicated Current Visit: Yes Status: Acute (3) Poor dentition Current Visit: Yes Status: Acute (4) Arthritis Current Visit: Yes Status: Chronic (5) Asthma Current Visit: Yes Status: Chronic Qualifiers: Asthma severity: mild Asthma persistence: intermittent Asthma complication type: uncomplicated Qualified Code(s): J45.20 - Mild intermittent asthma, uncomplicated (6) GERD (gastroesophageal reflux disease) Current Visit: Yes Status: Chronic Qualifiers: Esophagitis presence: without esophagitis Qualified Code(s): K21.9 - Gastro -esophageal reflux disease without esophagitis (7) Hypertension Current Visit: Yes Status: Chronic Qualifiers: Hypertension type: essential hypertension Qualified Code(s): I10 - Essential (primary) hypertension (8) Insomnia Current Visit: No Status: Acute (9) Tinea pedis Current Visit: No Status: Chronic Qualifiers: - AMA Did Patient Leave Against Medical Advice: No
[2018-05-01] MEDS ORDERED: chlordiazePOXIDE HCL 10 MG CAPSULE PO SCH (23:00)
== END 2018-05-01 12:40 | disposition other institution (70) | DRG 774 ==
LOC: YASAS 17:44 → Y6N 20:08
PROVIDERS: ADMIT Surgery; ATTEND Surgery
PROC: HZ2ZZZZ Detoxification Services for Substance Abuse Treatment (ICD-10-PCS; principal; 2018-04-28)
DX: F10.230 Alcohol dependence with withdrawal, uncomplicated (principal); F14.20 Cocaine dependence, uncomplicated; F17.213 Nicotine dependence, cigarettes, with withdrawal; F19.24 Other psychoactive substance dependence with psychoactive substance-induced mood disorder; F25.9 Schizoaffective disorder, unspecified; I10 Essential (primary) hypertension; K08.9 Disorder of teeth and supporting structures, unspecified; K02.9 Dental caries, unspecified; M19.90 Unspecified osteoarthritis, unspecified site; K21.9 Gastro-esophageal reflux disease without esophagitis; J45.20 Mild intermittent asthma, uncomplicated; G47.00 Insomnia, unspecified; B35.3 Tinea pedis; R76.11 Nonspecific reaction to tuberculin skin test without active tuberculosis; N39.0 Urinary tract infection, site not specified; Z91.013 Allergy to seafood
CPT/HCPCS: 36415; 80053; 81003; 81015; 85027; 86593; 93005; 93010

== ENCOUNTER 2018-06-29 15:35 | Inpatient (IN) | payer OTHER ==
[2018-06-29 18:35] VITALS: BMI 31.0
[2018-06-29] MEDS ORDERED: MELATONIN 5 MG TABLETS PO PRN (22:00)
--- NOTE | 2018-06-29 23:15 | HP ---
CIWA Score - CIWA Score Nausea/Vomitin-Mild Nausea/No Vomiting Muscle Tremors: 4-Moderate,w/Arms Extend Anxiety: 4-Mod. Anxious/Guarded Agitation: 3 Paroxysmal Sweats: 1-Minimal Palms Moist Orientation: 0-Oriented Tacttile Disturbances: 0-None Auditory Disturbances: 0-None Visual Disturbances: 0-None Headache: 2-Mild CIWA-Ar Total Score: 15 Admission ROS S - HPI Chief Complaint: Alcohol withdrawal symptoms Allergies/Adverse Reactions: Allergies Allergy/AdvReac Type Severity Reaction Status Date / Time mushroom Allergy Severe Rash Verified 06/29/18 21:27 No Known Drug Allergies Allergy Verified 06/29/18 21:27 salmon Allergy Severe Difficulty Uncoded 06/29/18 21:27 Breathing History of Present Illness: 58 years old female with a long history of alcohol dependence is seeking admission to detox. Patient was in detox 04/28-05/01/2018 and reports 3 years of sobriety. She has medical history of asthma, GERD, COPD, arthritis, hypertension, anxiety and depression. She denies suicide attempt or suicidal ideation at this time. Exam Limitations: No Limitations - Ebola screening Have you traveled outside of the country in the last 21 days: No Have you had contact with anyone from an Ebola affected area: No Have you been sick,other than usual withdrawal symptoms: No Do you have a fever: No - Review of Systems Constitutional: Chills, Loss of Appetite, Malaise, Changes in sleep EENT: reports: Cataracts (both eyes) Respiratory: reports: No Symptoms reported Cardiac: reports: No Symptoms Reported GI: reports: Poor Appetite, Poor Fluid Intake, Abdominal cramping : reports: No Symptoms Reported Musculoskeletal: reports: Back Pain, Joint Pain, Muscle Pain Integumentary: reports: Dryness Neuro: reports: Tremors Endocrine: reports: No Symptoms Reported Hematology: reports: No Symptoms Reported Psychiatric: reports: Orientated x3, Anxious, Depressed Other Systems: Reviewed and Negative Patient History - Patient Medical History Hx Anemia: Yes (Ferrous sulfate, Vitamins) Hx Asthma: Yes (on albuterol inhaler) Hx Chronic Obstructive Pulmonary Disease (COPD): Yes (Sigulair) Hx Cancer: No Hx Cardiac Disorders: No Hx Congestive Heart Failure: No Hx Hypertension: Yes (Hydrochlorothiazide) Hx Hypercholesterolemia: No Hx Pacemaker: No HX Cerebrovascular Accident: No Hx Seizures: No Hx Dementia: No Hx Diabetes: No Hx Gastrointestinal Disorders: Yes (Acid Reflux -) Hx Liver Disease: No Hx Genitourinary Disorders: No Hx Sexually Transmitted Disorders: No Hx Renal Disease (ESRD): No Hx Thyroid Disease: No Hx Human Immunodeficiency Virus (HIV): No (last 2017 negative) Hx Hepatitis C: No Hx Depression: Yes (Seroquel) Hx Suicide Attempt: No (Dries suicidal ideation at this time) Hx Bipolar Disorder: Yes Hx Schizophrenia: Yes Other Medical History: Anxiety, arthritis - - Patient Surgical History Past Surgical History: Yes Hx Neurologic Surgery: No Hx Cataract Extraction: No Hx Cardiac Surgery: No Hx Lung Surgery: No Hx Breast Surgery: No Hx Breast Biopsy: No Hx Abdominal Surgery: No Hx Appendectomy: No Hx Cholecystectomy: No Hx Genitourinary Surgery: No Hx Section: Yes (x2) Hx Orthopedic Surgery: Yes (right ankle fx at age 18) Hx Hysterectomy: No Anesthesia Reaction: No - PPD History Previous Implant?: No Results: cxr(-)11/10/17 PPD to be Administered?: No - Reproductive History Last Menstrual Period: 05/08/90 Patient : No - Smoking Cessation Smoking history: Current some day smoker Have you smoked in the past 12 months: Yes Aproximately how many cigarettes per day: 20 Cigars Per Day: 0 Hx Chewing Tobacco Use: No Initiated information on smoking cessation: Yes 'Breaking Loose' booklet given: 06/29/18 - Substance & Tx. History Hx Alcohol Use: Yes Hx Substance Use: Yes Substance Use Type: Alcohol, Cocaine Hx Substance Use Treatment: Yes (04/28-05/01/2018) - Substances Abused Alcohol Route: Oral Frequency: Daily Amount used: LIQUOR- 1 PINT, BEER- 1 SIX PACK Age of first use: 10 Date of Last Use: 06/28/18 Cocaine Route: Smoking Frequency: Daily Amount used: 5 BAGS Age of first use: 28 Date of Last Use: 06/28/18 Family Disease History - Family Disease History Family Disease History: Diabetes: Sister, Heart Disease: Father (), Mother (COPD- ), Other: Mother, Brother (only child) Admission Physical Exam BHS - Vital Signs Vital Signs: Vital Signs - 24 hr 06/29/18 18:33 Temperature 98.9 F Pulse Rate 96 H Respiratory 18 Rate Blood Pressure 119/75 - Physical General Appearance: Yes: Moderate Distress HEENTM: Yes: EOMI, Normal ENT Inspection, Normocephalic, Normal Voice, COLIN Respiratory: Yes: Lungs Clear, Normal Breath Sounds, No Respiratory Distress Neck: Yes: Supple Breast: Yes: Breast Exam Deferred Cardiology: Yes: Regular Rhythm, Regular Rate Abdominal: Yes: Normal Bowel Sounds Genitourinary: Yes: Within Normal Limits Back: Yes: Normal Inspection Musculoskeletal: Yes: Back pain, Muscle Pain, Muscle weakness Extremities: Yes: Tremors Neurological: 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: 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-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 NML intact, Alert, Normal Mood/Affect Integumentary: Yes: Warm Lymphatic: Yes: Within Normal Limits - Diagnostic (1) COPD (chronic obstructive pulmonary disease) Current Visit: Yes Status: Acute (2) Depression Current Visit: Yes Status: Acute (3) Alcohol dependence with uncomplicated withdrawal Current Visit: No Status: Acute (4) Cocaine dependence, uncomplicated Current Visit: No Status: Acute (5) Nicotine dependence Current Visit: No Status: Acute Qualifiers: Nicotine product type: cigarettes Substance use status: in withdrawal Qualified Code(s): F17.213 - Nicotine dependence, cigarettes, with withdrawal (6) Arthritis Current Visit: No Status: Chronic (7) Asthma Current Visit: No Status: Chronic Qualifiers: Asthma severity: mild Asthma persistence: intermittent Asthma complication type: uncomplicated Qualified Code(s): J45.20 - Mild intermittent asthma, uncomplicated (8) GERD (gastroesophageal reflux disease) Current Visit: No Status: Chronic Qualifiers: Esophagitis presence: without esophagitis Qualified Code(s): K21.9 - Gastro -esophageal reflux disease without esophagitis (9) Hypertension Current Visit: No Status: Chronic Qualifiers: Hypertension type: essential hypertension Qualified Code(s): I10 - Essential (primary) hypertension (10) Anxiety Current Visit: No Status: Suspected (11) Positive PPD Current Visit: No Status: Resolved Cleared for Admission BHS - Detox or Rehab S Level of Care: Medically Managed Detox Regimen/Protocol: Librium S Breath Alcohol Content Breath Alcohol Content: 0 Urine Pregancy Test - Result Urine Test Results: Negative- NO Line Present Urine Drug Screen - Results Drug Screen Negative: No Urine Drug Screen Results: KULWINDER-Cocaine
[2018-06-29] MEDS ORDERED: ACETAMINOPHEN 325 MG TABLET (FP) PO PRN (23:29)
[2018-06-29] MEDS ORDERED: MAG HYDROX/AL HYDROX/SIMETH 30 ML UNIT-DOSE CUP PO PRN (23:29)
[2018-06-29] MEDS ORDERED: MENTHOL/PHENOL 1 EACH UD MM PRN (23:29)
[2018-06-29] MEDS ORDERED: MAGNESIUM CITRATE 300 ML BOTTLE PO PRN (23:29)
[2018-06-29] MEDS ORDERED: P-EPHED 60MG/TRIPROLIDI 2.5MG TABLET PO PRN (23:29)
[2018-06-29] MEDS ORDERED: MAGNESIUM HYDROX 2400MG/30ML ORAL SUSPENSION 30 ML CUP PO PRN (23:29)
[2018-06-29] MEDS ORDERED: chlordiazePOXIDE HCL 25 MG CAPSULE PO PRN (23:29)
[2018-06-29] MEDS ORDERED: IBUPROFEN 400 MG TABLET (FP) PO PRN (23:29)
[2018-06-29] MEDS ORDERED: LOPERAMIDE HCL 2 MG CAPSULE PO PRN (23:29)
[2018-06-29] MEDS ORDERED: NICOTINE POLACRILEX 4 MG GUM BC PRN (23:29)
[2018-06-29] MEDS ORDERED: guaiFENesin/D-METHORPHAN HB 10 ML UNIT-DOSE CUPS PO PRN (23:29)
[2018-06-29] MEDS ORDERED: ALBUTEROL SO4 8 GM HFA INHALER IH PRN (23:31)
[2018-06-29] MEDS ORDERED: COLLOIDAL OATMEAL 1 BAR EACH TP PRN (23:34)
[2018-06-29] MEDS: chlordiazePOXIDE HCL 25 MG CAPSULE PO SCH (23:50)
[2018-06-30] MEDS: chlordiazePOXIDE HCL 25 MG CAPSULE PO SCH ×4 (05:10→23:09)
[2018-06-30] MEDS ORDERED: LIDOCAINE 5% TOPICAL PATCH TP SCH (10:00)
[2018-06-30] MEDS ORDERED: BUDESONIDE/FORMETEROL FUMARATE 80/4.5 mcg INHALER IH SCH (10:00)
[2018-06-30] MEDS: HYDROCHLOROTHIAZIDE 12.5 MG CAPSULE (FP) PO SCH (10:08)
[2018-06-30] MEDS: TOLNAFTATE 1% CREAM 15 GM TUBE TP SCH ×2 (10:08→23:11)
[2018-06-30] MEDS: PANTOPRAZOLE 20 MG TABLET (FP) PO SCH (10:08)
[2018-06-30] MEDS: ASPIRIN 81 MG CHEWABLE TABLETS PO SCH (10:08)
[2018-06-30] MEDS: PRENATAL VITAMINS W/ FOLIC ACID TABLET (FP) PO SCH (10:08)
[2018-06-30] MEDS: NICOTINE 14 MG/24 HOURS TOPICAL PATCH TD SCH (10:10)
[2018-06-30 10:26] LABS: HEMATOCRIT 38.6 % (32.4-45.2); HEMOGLOBIN 12.3 GM/dL (10.7-15.3); MCH 32.1 pg (25.7-33.7); MCHC 31.9 g/dl (32.0-36.0); MEAN CELL VOLUME 100.6 fl (80-96); PLATELET COUNT 242 K/MM3 (134-434); RBC 3.83 M/mm3 (3.60-5.2); RDW 14.6 % (11.6-15.6); WHITE BLOOD COUNT 4.2 K/mm3 (4.0-10.0)
[2018-06-30] MEDS ORDERED: LIDOCAINE VISCOUS 2% ORAL/TOP 20 ML UNIT-DOSE CUP MM PRN (11:18)
[2018-06-30 11:22] LABS: ALK PHOS 74 U/L (45-117); ANION GAP 9 MMOL/L (8-16); BILIRUBIN,TOTAL 0.2 mg/dL (0.2-1); BLOOD UREA NITROGEN 18 mg/dL (7-18); CALCIUM 8.3 mg/dL (8.5-10.1); CHLORIDE 110 mmol/L (98-107); CO2 27 mmol/L (21-32); CREATININE 0.9 mg/dL (0.55-1.3); GLUCOSE,RANDOM 92 mg/dL (74-106); POTASSIUM 3.8 mmol/L (3.5-5.1); SGOT/AST 15 U/L (15-37); SGPT/ALT 22 U/L (13-61); SODIUM 145 mmol/L (136-145)
--- NOTE | 2018-06-30 11:25 | PN ---
S CIWA - CIWA Score Nausea/Vomitin-No Nausea/No Vomiting Muscle Tremors: 3 Anxiety: 4-Mod. Anxious/Guarded Agitation: 4-Moderately Restless Paroxysmal Sweats: 2 Orientation: 0-Oriented Tacttile Disturbances: 0-None Auditory Disturbances: 0-None Visual Disturbances: 0-None Headache: 0-None Present CIWA-Ar Total Score: 13 BHS Progress Note (SOAP) Subjective: chronic knee pain chronic body aches and lower back sweats shakes irritable toothache interrupted sleep Objective: 06/30/18 11:21 Vital Signs Temperature 98.1 F 06/30/18 09:41 Pulse Rate 94 H 06/30/18 09:41 Respiratory Rate 19 06/30/18 09:41 Blood Pressure 121/86 06/30/18 09:41 O2 Sat by Pulse Oximetry (%) Laboratory Tests 06/30/18 06/30/18 07:00 07:00 WBC 4.2 RBC 3.83 Hgb 12.3 Hct 38.6 MCV 100.6 H MCH 32.1 MCHC 31.9 L RDW 14.6 Plt Count 242 MPV 8.0 HIV 1&2 Antibody Screen Negative HIV P24 Antigen Negative rest of labs pending aaox3 ambulating no acute distress Assessment: 06/30/18 11:21 withdrawal sx tooth decay small abscess noted Plan: continue detox increase fluids abx ordered lidocaine patch x 2 lidocaine s/s
--- NOTE | 2018-06-30 11:32 | CONSULT ---
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 This is one of multiple admissions for patient. Patient admitted to for alcohol dependence. Substance Abuse History: - Smoking Cessation. Smoking history: Current some day smoker. Have you smoked in the past 12 months: Yes. Aproximately how many cigarettes per day: 20. Cigars Per Day: 0. Hx Chewing Tobacco Use: No. Initiated information on smoking cessation: Yes. 'Breaking Loose' booklet given : 06/29/18. - Substance & Tx. History. Hx Alcohol Use: Yes. Hx Substance Use : Yes. Substance Use Type: Alcohol, Cocaine. Hx Substance Use Treatment: Yes ( 04/28-05/01/2018). - Substances Abused. Alcohol. Route: Oral. Frequency: Daily. Amount used: LIQUOR- 1 PINT, BEER- 1 SIX PACK. Age of first use: 10. Date of Last Use: 06/28/18. Cocaine. Route: Smoking. Frequency: Daily. Amount used: 5 BAGS. Age of first use: 28. Date of Last Use: 06/28/18 Medical History: Anemia, asthma, Gerd, hypertension Psychiatric History: Patient's first psychiatric contact was at 10 years of age due to "acting out". She denies h/o psychiatric hospitalization and suicide attempt. Current outpatient psychiatric care is provided in the [facility]. Claims to have diagnosis of schizophrenia/ bipolar disorder. States she is prescribed seroquel 300mg. Reports last taking seroquel 3 nights ago. 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 Patient became quickly irritable and walked out the office when informed that her seroquel will be lowered to 200mg. Physical/Sexual Abuse/Trauma History: denies. Mental Status Exam - Mental Status Exam Alert and Oriented to: Time, Place, Person Cognitive Function: Good Patient Appearance: Well Groomed Mood: Euthymic, Irritable Affect: Mood Congruent Patient Behavior: Cooperative, Agitated (Patient cooperative at first but soon became irritable when was informed that her seroquel dose will be lowered. ) Speech Pattern: Appropriate Voice Loudness: Moderately Soft/Quiet Thought Process: Intact, Goal Oriented Thought Disorder: Not Present Hallucinations: Denies Suicidal Ideation: Denies Homicidal Ideation: Denies Insight/Judgement: Poor Sleep: Poorly Appetite: Fair Muscle strength/Tone: Normal Gait/Station: Normal Psychiatric Findings - Problem List ([place] 1, 2,3) (1) Alcohol dependence with uncomplicated withdrawal Current Visit: Yes Status: Acute (2) Cocaine dependence, uncomplicated Current Visit: Yes Status: Chronic (3) Substance induced mood disorder Current Visit: Yes Status: Acute (4) Substance-induced sleep disorder Current Visit: Yes Status: Acute - Initial Treatment Plan Initial Treatment Plan: Psychoeducation provided. Detoxification in progress. Will order Seroquel 200mg qhs. Benefits and side effects discussed. Verbal consent given.
[2018-06-30] MEDS: LIDOCAINE 5% TOPICAL PATCH TP SCH (12:20)
--- NOTE | 2018-06-30 12:59 | EKG ---
Test Reason : Blood Pressure : / mmHG Vent. Rate : 091 BPM Atrial Rate : 091 BPM P-R Int : 130 ms QRS Dur : 084 ms QT Int : 384 ms P-R-T Axes : 071 059 061 degrees QTc Int : 472 ms NORMAL SINUS RHYTHM NORMAL ECG Confirmed by MD RUSTY, CATHLEEN ([id number]) on 06/30/2018 12:59:11 PM Referred By: Confirmed By:CATHLEEN OJEDA MD
[2018-06-30 16:36] LABS: URINE APPEARANCE CLOUDY; URINE BILIRUBIN NEGATIVE (<2.0 mg/dL); URINE COLOR YELLOW; URINE GLUCOSE (UA) NEGATIVE (NEGATIVE); URINE KETONE NEGATIVE (NEGATIVE); URINE LEUK ESTERASE 2+ (NEGATIVE); URINE NITRITE NEGATIVE (NEGATIVE); URINE PROTEIN NEGATIVE (NEGATIVE); URINE UROBILINOGEN NEGATIVE mg/dL (0.2-1.0)
[2018-06-30 17:03] LABS: EPI CELLS MODERATE /HPF (FEW); URINE BACTERIA RARE /hpf (NONE SEEN); URINE MUCUS RARE
[2018-06-30] MEDS: AMOX TR/POT CLAV 500MG/125MG TABLETS (FP) PO SCH (18:30)
[2018-06-30] MEDS: THIAMINE HCL 100 MG TABLET (FP) PO SCH (23:09)
[2018-06-30] MEDS: MONTELUKAST NA 10 MG TABLET PO SCH (23:09)
[2018-06-30] MEDS: QUEtiapine FUMARATE 200 MG TABLET PO SCH (23:09)
[2018-06-30] MEDS: BUDESONIDE/FORMETEROL FUMARATE 160/4.5 mcg INHALER IH SCH (23:10)
[2018-06-30] MEDS: METHYL SALICYLATE/MENTHOL OINT 30 GM TUBE TP SCH (23:11)
[2018-07-01] MEDS: chlordiazePOXIDE HCL 25 MG CAPSULE PO SCH ×3 (06:11→17:38)
--- NOTE | 2018-07-01 10:49 | PN ---
S CIWA - CIWA Score Nausea/Vomitin Muscle Tremors: 1-None Visible, but [place] Anxiety: 2 Agitation: 2 Paroxysmal Sweats: 2 Orientation: 0-Oriented Tacttile Disturbances: 1-Very Mild Itch/Numbness Auditory Disturbances: 0-None Visual Disturbances: 0-None Headache: 0-None Present CIWA-Ar Total Score: 10 S Progress Note (SOAP) Subjective: pt states she wants to slep and not be distrubed, , c/o interrupted sleep Vital Signs Temperature 97.3 F L 07/01/18 09:23 Pulse Rate 87 07/01/18 09:23 Respiratory Rate 18 07/01/18 09:23 Blood Pressure 114/85 07/01/18 09:23 O2 Sat by Pulse Oximetry (%) Laboratory Tests 06/30/18 06/30/18 06/30/18 07:00 07:00 07:00 WBC 4.2 RBC 3.83 Hgb 12.3 Hct 38.6 MCV 100.6 H MCH 32.1 MCHC 31.9 L RDW 14.6 Plt Count 242 MPV 8.0 Sodium 145 Potassium 3.8 Chloride 110 H Carbon Dioxide 27 Anion Gap 9 BUN 18 Creatinine 0.9 Creat Clearance w eGFR > 60 Random Glucose 92 Calcium 8.3 L Total Bilirubin 0.2 AST 15 ALT 22 Alkaline Phosphatase 74 Total Protein 6.0 L Albumin 3.0 L Urine Color Urine Appearance Urine pH Ur Specific [place] Urine Protein Urine Glucose (UA) Urine Ketones Urine Blood Urine Nitrite Urine Bilirubin Urine Urobilinogen Ur Leukocyte Esterase Urine WBC (Auto) Urine RBC (Auto) Ur Epithelial Cells Urine Bacteria Urine Mucus RPR Titer Hep C Ab Diagnostic HIV 1&2 Antibody Screen Negative HIV P24 Antigen Negative 06/30/18 06/30/18 06/30/18 07:00 09:30 10:45 WBC RBC Hgb Hct MCV MCH MCHC RDW Plt Count MPV Sodium Potassium Chloride Carbon Dioxide Anion Gap BUN Creatinine Creat Clearance w eGFR Random Glucose Calcium Total Bilirubin AST ALT Alkaline Phosphatase Total Protein Albumin Urine Color Yellow Urine Appearance Cloudy Urine pH 5.0 Ur Specific [place] 1.025 Urine Protein Negative Urine Glucose (UA) Negative Urine Ketones Negative Urine Blood Negative Urine Nitrite Negative Urine Bilirubin Negative Urine Urobilinogen Negative Ur Leukocyte Esterase 2+ H Urine WBC (Auto) 97 Urine RBC (Auto) 3 Ur Epithelial Cells Moderate Urine Bacteria Rare Urine Mucus Rare RPR Titer Nonreactive Hep C Ab Diagnostic <0.1 HIV 1&2 Antibody Screen HIV P24 Antigen pt aox3 in nad lying in bed wants to sleep Assessment: 07/01/18 10:48 withdrawal sx's wbc's in u/a Plan: cont. detox increase fluids OUB repeat U/ A
[2018-07-01] MEDS: METHYL SALICYLATE/MENTHOL OINT 30 GM TUBE TP SCH ×2 (10:58→22:23)
[2018-07-01] MEDS: PANTOPRAZOLE 20 MG TABLET (FP) PO SCH (10:58)
[2018-07-01] MEDS: CYCLOBENZAPRINE HCL 10 MG TABLET (FP) PO PRN (10:58)
[2018-07-01] MEDS: ASPIRIN 81 MG CHEWABLE TABLETS PO SCH (10:58)
[2018-07-01] MEDS: HYDROCHLOROTHIAZIDE 12.5 MG CAPSULE (FP) PO SCH (10:58)
[2018-07-01] MEDS: AMOX TR/POT CLAV 500MG/125MG TABLETS (FP) PO SCH ×2 (10:58→17:37)
[2018-07-01] MEDS: PRENATAL VITAMINS W/ FOLIC ACID TABLET (FP) PO SCH (10:58)
[2018-07-01] MEDS: LIDOCAINE 5% TOPICAL PATCH TP SCH (10:59)
[2018-07-01] MEDS: NICOTINE 14 MG/24 HOURS TOPICAL PATCH TD SCH (10:59)
[2018-07-01] MEDS: BUDESONIDE/FORMETEROL FUMARATE 160/4.5 mcg INHALER IH SCH ×2 (10:59→22:24)
[2018-07-01] MEDS: TOLNAFTATE 1% CREAM 15 GM TUBE TP SCH ×2 (10:59→22:24)
[2018-07-01] MEDS ORDERED: AMMONIUM LACTATE 12% LOTION 225 GM BOTTLE TP PRN (11:20)
[2018-07-01] MEDS: chlordiazePOXIDE 5 MG CAPSULE PO SCH (22:23)
[2018-07-01] MEDS: THIAMINE HCL 100 MG TABLET (FP) PO SCH (22:24)
[2018-07-01] MEDS: QUEtiapine FUMARATE 200 MG TABLET PO SCH (22:24)
[2018-07-01] MEDS: MONTELUKAST NA 10 MG TABLET PO SCH (22:24)
[2018-07-02] MEDS: chlordiazePOXIDE 5 MG CAPSULE PO SCH ×4 (05:44→17:19)
[2018-07-02] MEDS: AMOX TR/POT CLAV 500MG/125MG TABLETS (FP) PO SCH ×2 (07:01→17:19)
--- NOTE | 2018-07-02 08:11 | PN ---
Psychiatric Progress Note Vital Signs: Vital Signs Period Temp Pulse Resp BP Sys/[place] Pulse Ox Last 24 Hr 97 F-98.2 F 87-97 18-19 112-149/70-94 Date of Session: 07/02/18 Chief Complaint:: SEROQUEL DOSE HPI: Patient reports did not sleeo at night, reports she is taking prior to admission. Seroquel 300mg po qhs Current Medications: Active Medications Generic Name Dose Route Start Last Admin Trade Name Freq PRN Reason Stop Dose Admin Acetaminophen 650 mg 06/29/18 23:29 Tylenol - PO Q4H PRN FEVER Al Hydroxide/Mg Hydroxide 30 ml 06/29/18 23:29 Mylanta Oral Suspension - PO Q6H PRN DYSPEPSIA Albuterol Sulfate 2 puff 06/29/18 23:31 Ventolin Hfa Inhaler - IH Q4H PRN ASTHMA Amoxicillin/Clavulanate Potassium 1 tab 06/30/18 17:30 07/02/18 07:01 Augmentin - 500mg Tablet PO 07/07/18 17:29 1 tab BID@0800,1730 HUBER Administration Aspirin 81 mg 06/30/18 10:00 07/01/18 10:58 Asa - PO 81 mg DAILY HUBER Administration Budesonide/Formoterol Fumarate 2 puff 06/30/18 11:30 07/01/18 22:24 Symbicort 160/4.5mcg - IH 2 inh BID HUBER Administration Chlordiazepoxide HCl 15 mg 07/01/18 23:00 07/02/18 05:44 Librium - PO 07/02/18 17:01 15 mg [id number] HUBER Administration Chlordiazepoxide HCl 25 mg 06/29/18 23:29 06/30/18 05:15 Librium - PO 07/02/18 23:28 25 mg Q4H PRN Administration WITHDRAWAL(CONT SUBST) Chlordiazepoxide HCl 10 mg 07/02/18 23:00 Librium - PO 07/03/18 17:01 [id number] HUBER Colloidal Oatmeal 1 applic 06/29/18 23:34 06/30/18 10:16 Aveeno Soap - TP 1 adh.patch DAILY PRN Administration HYGEINE Cyclobenzaprine HCl 10 mg 06/29/18 23:31 07/01/18 10:58 Flexeril - PO 10 mg TID PRN Administration MUSCLE SPASMS Eucalyptus/Menthol/Phenol/Sorbitol 1 each 06/29/18 23:29 Cepastat Lozenge - MM Q4H PRN SORE THROAT Guaifenesin 10 ml 06/29/18 23:29 Robitussin Dm - PO Q6H PRN COUGH Hydrochlorothiazide 12.5 mg 06/30/18 10:00 07/01/18 10:58 Hctz - PO 12.5 mg DAILY HUBER Administration Ibuprofen 400 mg 06/29/18 23:29 06/30/18 10:17 Motrin - PO 400 mg Q6H PRN Administration PAIN LEVEL 4-6 Lactic Acid 1 applic 07/01/18 11:20 Lac-Hydrin 12 TP BID PRN DRY SKIN Lidocaine 2 patch 06/30/18 11:30 07/01/18 10:59 Lidoderm Patch - TP 2 patch DAILY HUBER Administration Lidocaine HCl 20 ml 06/30/18 11:18 Xylocaine 2% Viscous Oral - MM Q6HPO PRN ORAL PAIN/MOUTH SORES Loperamide HCl 4 mg 06/29/18 23:29 Imodium - PO Q6H PRN DIARRHEA Magnesium Citrate 300 ml 06/29/18 23:29 06/30/18 12:27 Citroma - PO 300 ml Q48H PRN Administration CONSTIPATION Magnesium Hydroxide 30 ml 06/29/18 23:29 06/30/18 20:37 Milk Of Magnesia - PO 30 ml DAILY PRN Administration CONSTIPATION Melatonin 5 mg 06/29/18 22:00 06/30/18 00:49 Melatonin PO 5 mg HS PRN Administration INSOMNIA Methyl Salicylate 1 applic 06/30/18 22:00 07/01/18 22:23 Everette-Guerrero - TP Not Given BID HUBER Montelukast Sodium 10 mg 06/30/18 22:00 07/01/18 22:24 Singulair - PO 10 mg HS HUBER Administration Nicotine 14 mg 06/30/18 10:00 07/01/18 10:59 Nicoderm Patch - TD 14 mg DAILY HUBER Administration Nicotine Polacrilex 4 mg 06/29/18 23:29 Nicorette Gum - BC Q2H PRN NICOTINE REPLACEMENT RX Pantoprazole Sodium 20 mg 06/30/18 10:00 07/01/18 10:58 Protonix - PO 20 mg DAILY HUBER Administration Multivit/Folic Acid/Iron 1 tab 06/30/18 10:00 07/01/18 10:58 Vitamins (Sjr) - PO 1 tab DAILY HUBER Administration Pseudoephedrine/Triprolidine 1 combo 06/29/18 23:29 Actifed - PO TID PRN NASAL CONGESTION Quetiapine Fumarate 200 mg 06/30/18 22:00 07/01/18 22:24 Seroquel - PO 200 mg HS HUBER Administration Thiamine HCl 100 mg 06/30/18 22:00 07/01/18 22:24 Vitamin B1 - PO 100 mg HS HUBER Administration Tolnaftate 1 applic 06/30/18 10:00 07/01/18 22:24 Tinactin 1% Cream - TP Not Given BID HUBER Medication(s) Change(s): Seroquel 300mg po qhs Mental Status Exam - Mental Status Exam Alert and Oriented to: Person Cognitive Function: Fair Patient Appearance: Unkempt Mood: Anxious Affect: Mood Congruent Patient Behavior: Cooperative Speech Pattern: Appropriate Voice Loudness: Mildly Soft/Quiet Thought Process: Goal Oriented Thought Disorder: Being Controlled Hallucinations: Denies Suicidal Ideation: Denies Homicidal Ideation: Denies Insight/Judgement: Fair Sleep: Difficulty falling asleep Appetite: Weight loss Muscle strength/Tone: Mild Hypotonicity Gait/Station: Shuffling Additional Comments: Seroquel 300mg po qhs Psychiatric Treatment Plan - Problem List (1) Alcohol dependence with uncomplicated withdrawal Current Visit: Yes (2) Substance induced mood disorder Current Visit: Yes (3) Substance-induced sleep disorder Current Visit: Yes (4) Arthritis Current Visit: Yes (5) Asthma Current Visit: Yes Qualifiers: Asthma severity: mild Asthma persistence: intermittent Asthma complication type: uncomplicated Qualified Code(s): J45.20 - Mild intermittent asthma, uncomplicated (6) COPD (chronic obstructive pulmonary disease) Current Visit: Yes (7) Cocaine dependence, uncomplicated Current Visit: Yes (8) GERD (gastroesophageal reflux disease) Current Visit: Yes Qualifiers: Esophagitis presence: without esophagitis Qualified Code(s): K21.9 - Gastro -esophageal reflux disease without esophagitis (9) Hypertension Current Visit: Yes Qualifiers: Hypertension type: essential hypertension Qualified Code(s): I10 - Essential (primary) hypertension (10) Positive PPD Current Visit: Yes (11) Alcohol dependence Current Visit: No (12) Schizoaffective disorder Current Visit: No Qualifiers: Schizoaffective disorder type: other Comment: As per history.No adherence to OPD care. (13) UTI (urinary tract infection) Current Visit: No Qualifiers: Urinary tract infection type: site unspecified Hematuria presence: without hematuria Qualified Code(s): N39.0 - Urinary tract infection, site not specified Initial treatment plan: Seroquel 300mg po qhs
[2018-07-02] MEDS: PANTOPRAZOLE 20 MG TABLET (FP) PO SCH (10:08)
[2018-07-02] MEDS: CYCLOBENZAPRINE HCL 10 MG TABLET (FP) PO PRN (10:08)
[2018-07-02] MEDS: PRENATAL VITAMINS W/ FOLIC ACID TABLET (FP) PO SCH (10:08)
[2018-07-02] MEDS: HYDROCHLOROTHIAZIDE 12.5 MG CAPSULE (FP) PO SCH (10:08)
[2018-07-02] MEDS: ASPIRIN 81 MG CHEWABLE TABLETS PO SCH (10:08)
[2018-07-02] MEDS: NICOTINE 14 MG/24 HOURS TOPICAL PATCH TD SCH (10:09)
[2018-07-02] MEDS: TOLNAFTATE 1% CREAM 15 GM TUBE TP SCH ×2 (10:10→22:00)
[2018-07-02] MEDS: LIDOCAINE 5% TOPICAL PATCH TP SCH (10:10)
[2018-07-02] MEDS: BUDESONIDE/FORMETEROL FUMARATE 160/4.5 mcg INHALER IH SCH ×2 (10:10→21:59)
--- NOTE | 2018-07-02 10:53 | PN ---
BHS Progress Note (SOAP) Subjective: feeling better poor oral hygiene no tremor less sweat social with peers in day room, eating well denies trouble swallow strong recommend dental referral Objective: 07/02/18 10:51 Vital Signs Temperature 97 F L 07/02/18 07:04 Pulse Rate 97 H 07/02/18 09:33 Respiratory Rate 20 07/02/18 09:33 Blood Pressure 124/79 07/02/18 09:33 O2 Sat by Pulse Oximetry (%) Laboratory Last Values WBC 4.2 K/mm3 (4.0-10.0) 06/30/18 07:00 RBC 3.83 M/mm3 (3.60-5.2) 06/30/18 07:00 Hgb 12.3 GM/dL (10.7-15.3) 06/30/18 07:00 Hct 38.6 % (32.4-45.2) 06/30/18 07:00 MCV 100.6 fl (80-96) H 06/30/18 07:00 MCH 32.1 pg (25.7-33.7) 06/30/18 07:00 MCHC 31.9 g/dl (32.0-36.0) L 06/30/18 07:00 RDW 14.6 % (11.6-15.6) 06/30/18 07:00 Plt Count 242 K/MM3 (134-434) 06/30/18 07:00 MPV 8.0 fl (7.5-11.1) 06/30/18 07:00 Sodium 145 mmol/L (136-145) 06/30/18 07:00 Potassium 3.8 mmol/L (3.5-5.1) 06/30/18 07:00 Chloride 110 mmol/L (98-107) H 06/30/18 07:00 Carbon Dioxide 27 mmol/L (21-32) 06/30/18 07:00 Anion Gap 9 MMOL/L (8-16) 06/30/18 07:00 BUN 18 mg/dL (7-18) 06/30/18 07:00 Creatinine 0.9 mg/dL (0.55-1.3) 06/30/18 07:00 Creat Clearance w eGFR > 60 (>60) 06/30/18 07:00 Random Glucose 92 mg/dL (74-106) 06/30/18 07:00 Calcium 8.3 mg/dL (8.5-10.1) L 06/30/18 07:00 Total Bilirubin 0.2 mg/dL (0.2-1) 06/30/18 07:00 AST 15 U/L (15-37) 06/30/18 07:00 ALT 22 U/L (13-61) 06/30/18 07:00 Alkaline Phosphatase 74 U/L (45-117) 06/30/18 07:00 Total Protein 6.0 g/dl (6.4-8.2) L 06/30/18 07:00 Albumin 3.0 g/dl (3.4-5.0) L 06/30/18 07:00 Urine Color Yellow 06/30/18 10:45 Urine Appearance Cloudy 06/30/18 10:45 Urine pH 5.0 (5.0-8.0) 06/30/18 10:45 Ur Specific [place] 1.025 (1.010-1.035) 06/30/18 10:45 Urine Protein Negative (NEGATIVE) 06/30/18 10:45 Urine Glucose (UA) Negative (NEGATIVE) 06/30/18 10:45 Urine Ketones Negative (NEGATIVE) 06/30/18 10:45 Urine Blood Negative (NEGATIVE) 06/30/18 10:45 Urine Nitrite Negative (NEGATIVE) 06/30/18 10:45 Urine Bilirubin Negative (<2.0 mg/dL) 06/30/18 10:45 Urine Urobilinogen Negative mg/dL (0.2-1.0) 06/30/18 10:45 Ur Leukocyte Esterase 2+ (NEGATIVE) H 06/30/18 10:45 Urine WBC (Auto) 97 /hpf (3-5) 06/30/18 10:45 Urine RBC (Auto) 3 /hpf (0-3) 06/30/18 10:45 Ur Epithelial Cells Moderate /HPF (FEW) 06/30/18 10:45 Urine Bacteria Rare /hpf (NONE SEEN) 06/30/18 10:45 Urine Mucus Rare 06/30/18 10:45 RPR Titer Nonreactive (NONREACTIVE) 06/30/18 07:00 Hep C Ab Diagnostic <0.1 s/co ratio (0.0-0.9) 06/30/18 09:30 HIV 1&2 Antibody Screen Negative 06/30/18 07:00 HIV P24 Antigen Negative 06/30/18 07:00 lab noted Assessment: 07/02/18 10:52 mild withdrawal sx poor dentition Plan: medically supervised detox
[2018-07-02] MEDS: METHYL SALICYLATE/MENTHOL OINT 30 GM TUBE TP SCH ×2 (11:38→21:59)
[2018-07-02] MEDS: CHLORHEXIDINE GLUCONATE 118 ML MOUTHWASH MM SCH ×2 (16:20→21:59)
[2018-07-02] MEDS: THIAMINE HCL 100 MG TABLET (FP) PO SCH (21:58)
[2018-07-02] MEDS: MONTELUKAST NA 10 MG TABLET PO SCH (21:58)
[2018-07-02] MEDS ORDERED: QUEtiapine FUMARATE 300 MG TABLET PO SCH (22:00)
[2018-07-02] MEDS: chlordiazePOXIDE HCL 10 MG CAPSULE PO SCH (22:00)
[2018-07-03] MEDS: chlordiazePOXIDE HCL 10 MG CAPSULE PO SCH ×2 (06:40→11:29)
[2018-07-03] MEDS: AMOX TR/POT CLAV 500MG/125MG TABLETS (FP) PO SCH (08:04)
[2018-07-03] MEDS: CHLORHEXIDINE GLUCONATE 118 ML MOUTHWASH MM SCH (08:04)
--- NOTE | 2018-07-03 08:59 | DS ---
[facility] Detox Discharge Summary Admission Date: 06/29/18 Discharge Date: 07/03/18 - History Present History: Alcohol Dependence, Cocaine Dependence - Physical Exam Results Vital Signs: Vital Signs Temperature 97.3 F L 07/03/18 06:00 Pulse Rate 88 07/03/18 06:00 Respiratory Rate 18 07/03/18 06:00 Blood Pressure 118/69 07/03/18 06:00 O2 Sat by Pulse Oximetry (%) - Treatment Hospital Course: Detox Protocol Followed, Detoxed Safely, Responded well, Discharged Condition Good, Rehab Referral Accepted - Medication Discharge Medications: Ambulatory Orders Aspirin [ASA -] 81 mg PO DAILY #30 mg 10/08/17 Fluticasone/Salmeterol [Advair 250-50 Diskus] 1 each IH BID #1 disk.w.dev Pantoprazole Sodium [Protonix -] 20 mg PO DAILY #14 tablet.ec 02/22/18 Quetiapine Fumarate [Seroquel -] 300 mg PO HS #30 tablet 04/29/18 Cyclobenzaprine HCl [Flexeril -] 10 mg PO TID PRN tablet 05/01/18 Lidocaine 5% Patch [Lidoderm -] 1 patch TP DAILY patch 05/01/18 Tolnaftate 1% Cream [Tinactin 1% Cream -] 1 applic TP BID cream..g. 05/01/18 Albuterol Sulfate Inhaler - [Ventolin HFA Inhaler -] 2 puff IH Q4H PRN #1 inhaler 07/02/18 Budesonide/Formeterol Fumarate [SYMBICORT 160/4.5mcg -] 2 puff IH BID #1 inhaler 07/02/18 Hydrochlorothiazide [Hctz -] 12.5 mg PO DAILY #14 cap 07/02/18 Montelukast Na [Singulair -] 10 mg PO HS #14 tablet 07/02/18 - Diagnosis (1) Alcohol dependence with uncomplicated withdrawal Current Visit: Yes Status: Chronic (2) Substance induced mood disorder Current Visit: Yes Status: Acute (3) Substance-induced sleep disorder Current Visit: Yes Status: Acute (4) Arthritis Current Visit: Yes Status: Chronic (5) Asthma Current Visit: Yes Status: Chronic Qualifiers: Asthma severity: mild Asthma persistence: intermittent Asthma complication type: uncomplicated Qualified Code(s): J45.20 - Mild intermittent asthma, uncomplicated (6) COPD (chronic obstructive pulmonary disease) Current Visit: Yes Status: Chronic (7) Cocaine dependence, uncomplicated Current Visit: Yes Status: Chronic (8) Depression Current Visit: Yes Status: Chronic Qualifiers: Depression Type: unspecified Qualified Code(s): F32.9 - Major depressive disorder, single episode, unspecified (9) GERD (gastroesophageal reflux disease) Current Visit: Yes Status: Chronic Qualifiers: Esophagitis presence: without esophagitis Qualified Code(s): K21.9 - Gastro -esophageal reflux disease without esophagitis (10) Hypertension Current Visit: Yes Status: Chronic Qualifiers: Hypertension type: essential hypertension Qualified Code(s): I10 - Essential (primary) hypertension (11) Anxiety Current Visit: Yes Status: Suspected (12) Positive PPD Current Visit: Yes Status: Resolved (13) Insomnia Current Visit: No Status: Acute (14) Nicotine dependence Current Visit: Yes Status: Acute Qualifiers: Nicotine product type: cigarettes Substance use status: uncomplicated Qualified Code(s): F17.210 - Nicotine dependence, cigarettes, uncomplicated (15) Poor dentition Current Visit: Yes Status: Chronic (16) Poor oral hygiene Current Visit: Yes Status: Chronic (17) Dental caries Current Visit: No Status: Chronic (18) Depressed affect Current Visit: No Status: Suspected (19) Schizoaffective disorder Current Visit: No Status: Suspected Qualifiers: Schizoaffective disorder type: other - AMA Did Patient Leave Against Medical Advice: No (referred to jenn ATC)
[2018-07-03 09:12] VITALS: BP 106/68; PULSE 99; TEMP 97
[2018-07-03] MEDS: PRENATAL VITAMINS W/ FOLIC ACID TABLET (FP) PO SCH (10:55)
[2018-07-03] MEDS: NICOTINE 14 MG/24 HOURS TOPICAL PATCH TD SCH (10:55)
[2018-07-03] MEDS: METHYL SALICYLATE/MENTHOL OINT 30 GM TUBE TP SCH (10:55)
[2018-07-03] MEDS: ASPIRIN 81 MG CHEWABLE TABLETS PO SCH (10:55)
[2018-07-03] MEDS: PANTOPRAZOLE 20 MG TABLET (FP) PO SCH (10:55)
[2018-07-03] MEDS: HYDROCHLOROTHIAZIDE 12.5 MG CAPSULE (FP) PO SCH (10:55)
[2018-07-03] MEDS: BUDESONIDE/FORMETEROL FUMARATE 160/4.5 mcg INHALER IH SCH (11:27)
[2018-07-03] MEDS: TOLNAFTATE 1% CREAM 15 GM TUBE TP SCH (11:27)
[2018-07-03] MEDS: LIDOCAINE 5% TOPICAL PATCH TP SCH (11:27)
== END 2018-07-03 11:20 | disposition other institution (70) | DRG 774 ==
LOC: YASAS 15:35 → Y6N 21:59
PROC: HZ2ZZZZ Detoxification Services for Substance Abuse Treatment (ICD-10-PCS; principal; 2018-06-29)
DX: F10.230 Alcohol dependence with withdrawal, uncomplicated (principal); F14.20 Cocaine dependence, uncomplicated; F17.210 Nicotine dependence, cigarettes, uncomplicated; F19.24 Other psychoactive substance dependence with psychoactive substance-induced mood disorder; F19.282 Other psychoactive substance dependence with psychoactive substance-induced sleep disorder; F32.9 Major depressive disorder, single episode, unspecified; D64.9 Anemia, unspecified; J44.9 Chronic obstructive pulmonary disease, unspecified; J45.20 Mild intermittent asthma, uncomplicated; I10 Essential (primary) hypertension; K21.9 Gastro-esophageal reflux disease without esophagitis; N39.0 Urinary tract infection, site not specified; K08.9 Disorder of teeth and supporting structures, unspecified; K02.9 Dental caries, unspecified; F41.9 Anxiety disorder, unspecified; R76.11 Nonspecific reaction to tuberculin skin test without active tuberculosis; Z91.89 Other specified personal risk factors, not elsewhere classified
CPT/HCPCS: 36415; 80053; 81003; 81015; 85027; 86593; 86803; 87389; 93005; 93010

== ENCOUNTER 2018-07-03 11:10 | Inpatient (IN) | payer OTHER ==
[2018-07-03] MEDS ORDERED: IBUPROFEN 400 MG TABLET (FP) PO PRN (12:19)
[2018-07-03] MEDS ORDERED: P-EPHED 60MG/TRIPROLIDI 2.5MG TABLET PO PRN (12:19)
[2018-07-03] MEDS ORDERED: LOPERAMIDE HCL 2 MG CAPSULE PO PRN (12:19)
[2018-07-03] MEDS ORDERED: hydrOXYzine PAMOATE 50 MG CAPSULE (FP) PO PRN (12:19)
[2018-07-03] MEDS ORDERED: MAGNESIUM CITRATE 300 ML BOTTLE PO PRN (12:19)
[2018-07-03] MEDS ORDERED: MAG HYDROX/AL HYDROX/SIMETH 30 ML UNIT-DOSE CUP PO PRN (12:19)
[2018-07-03] MEDS ORDERED: guaiFENesin/D-METHORPHAN HB 10 ML UNIT-DOSE CUPS PO PRN (12:19)
[2018-07-03] MEDS ORDERED: MENTHOL/PHENOL 1 EACH UD MM PRN (12:19)
[2018-07-03] MEDS ORDERED: ALBUTEROL SO4 8 GM HFA INHALER IH PRN (12:20)
--- NOTE | 2018-07-03 12:26 | HP ---
[facility] Rehab Assess/Revision - Admission History Admitted to Rehab from: [address] - Vital signs Vital Signs: Vital Signs Period Temp Pulse Resp BP Sys/[place] Pulse Ox Last 24 Hr 97.3 F 103 18 129/84 - Findings Detox History & Physical reviewed: Yes Concur with findings: Yes Inpatient Rehab Admission - Initial Determination Are CD services needed?: Yes Free of communicable disease: Yes Not in need of hospitalization: Yes - Rehab Admission Criteria Previous failed treatment: Yes Poor recovery environment: Yes Comorbidities: Yes Lacks judgement: Yes Patient is meeting Inpatient Rehab admission criteria:: Yes
--- NOTE | 2018-07-03 12:58 | PN ---
[facility] Progress Note Note: Called by nursing staff to order medication for newly admitted patient from detox. Medication reconciliation done. Seroquel 300 mg po HS ordered for patient
[2018-07-03] MEDS ORDERED: COLLOIDAL OATMEAL 1 BAR EACH TP PRN (13:06)
[2018-07-03] MEDS ORDERED: PT OWN MED DRAWER 7, Y5N ONE ×2 (19:37→21:43)
[2018-07-03] MEDS: THIAMINE HCL 100 MG TABLET (FP) PO SCH (21:37)
[2018-07-03] MEDS: QUEtiapine FUMARATE 300 MG TABLET PO SCH (21:37)
[2018-07-03] MEDS: MONTELUKAST NA 10 MG TABLET PO SCH (21:37)
[2018-07-03] MEDS: CYCLOBENZAPRINE HCL 10 MG TABLET (FP) PO PRN (21:37)
[2018-07-03] MEDS: METHYL SALICYLATE/MENTHOL OINT 30 GM TUBE TP SCH (21:38)
[2018-07-03] MEDS: BUDESONIDE/FORMETEROL FUMARATE 160/4.5 mcg INHALER IH SCH (21:38)
[2018-07-03] MEDS: ACETAMINOPHEN 325 MG TABLET (FP) PO PRN (21:39)
[2018-07-03] MEDS: AMOX TR/POT CLAV 500MG/125MG TABLETS (FP) PO SCH (21:42)
[2018-07-03] MEDS: TOLNAFTATE 1% CREAM 15 GM TUBE TP SCH (21:45)
[2018-07-03] MEDS ORDERED: AMOX TR/POT CLAV 500MG/125MG TABLETS (FP) PO SCH (22:00)
[2018-07-03] MEDS ORDERED: MELATONIN 5 MG TABLETS PO PRN (22:00)
[2018-07-04] MEDS ORDERED: PT OWN MED DRAWER 7, Y5N ONE ×2 (09:10→10:35)
[2018-07-04] MEDS: LIDOCAINE 5% TOPICAL PATCH TP SCH (10:00)
[2018-07-04] MEDS ORDERED: LIDOCAINE 5% TOPICAL PATCH TP SCH (10:00)
[2018-07-04] MEDS: AMOX TR/POT CLAV 500MG/125MG TABLETS (FP) PO SCH ×2 (10:01→21:45)
[2018-07-04] MEDS: PRENATAL VITAMINS W/ FOLIC ACID TABLET (FP) PO SCH (10:01)
[2018-07-04] MEDS: METHYL SALICYLATE/MENTHOL OINT 30 GM TUBE TP SCH ×2 (10:01→21:35)
[2018-07-04] MEDS: BUDESONIDE/FORMETEROL FUMARATE 160/4.5 mcg INHALER IH SCH ×2 (10:01→21:34)
[2018-07-04] MEDS: HYDROCHLOROTHIAZIDE 12.5 MG CAPSULE (FP) PO SCH (10:02)
[2018-07-04] MEDS: ASPIRIN 81 MG CHEWABLE TABLETS PO SCH (10:02)
[2018-07-04] MEDS: PANTOPRAZOLE 20 MG TABLET (FP) PO SCH (10:02)
[2018-07-04] MEDS: TOLNAFTATE 1% CREAM 15 GM TUBE TP SCH ×2 (10:02→21:35)
[2018-07-04] MEDS: CYCLOBENZAPRINE HCL 10 MG TABLET (FP) PO PRN ×2 (10:03→21:34)
[2018-07-04] MEDS: NICOTINE 21 MG/24 HOURS TOPICAL PATCH TD SCH (12:38)
[2018-07-04] MEDS: THIAMINE HCL 100 MG TABLET (FP) PO SCH (21:31)
[2018-07-04] MEDS: MONTELUKAST NA 10 MG TABLET PO SCH (21:32)
[2018-07-04] MEDS: QUEtiapine FUMARATE 300 MG TABLET PO SCH (21:32)
[2018-07-04] MEDS: ACETAMINOPHEN 325 MG TABLET (FP) PO PRN (21:33)
[2018-07-04] MEDS: AMMONIUM LACTATE 12% LOTION 225 GM BOTTLE TP SCH (21:35)
[2018-07-05] MEDS ORDERED: PT OWN MED DRAWER 7, Y5N ONE ×8 (00:03→21:14)
[2018-07-05] MEDS: AMOX TR/POT CLAV 500MG/125MG TABLETS (FP) PO SCH ×2 (08:35→17:30)
[2018-07-05] MEDS: BUDESONIDE/FORMETEROL FUMARATE 160/4.5 mcg INHALER IH SCH ×2 (10:40→21:48)
[2018-07-05] MEDS: NICOTINE 21 MG/24 HOURS TOPICAL PATCH TD SCH (10:40)
[2018-07-05] MEDS: HYDROCHLOROTHIAZIDE 12.5 MG CAPSULE (FP) PO SCH (10:41)
[2018-07-05] MEDS: ASPIRIN 81 MG CHEWABLE TABLETS PO SCH (10:41)
[2018-07-05] MEDS: PANTOPRAZOLE 20 MG TABLET (FP) PO SCH (10:41)
[2018-07-05] MEDS: PRENATAL VITAMINS W/ FOLIC ACID TABLET (FP) PO SCH (10:41)
[2018-07-05] MEDS: AMMONIUM LACTATE 12% LOTION 225 GM BOTTLE TP SCH ×2 (10:42→21:47)
[2018-07-05] MEDS: METHYL SALICYLATE/MENTHOL OINT 30 GM TUBE TP SCH ×2 (10:42→21:47)
[2018-07-05] MEDS: TOLNAFTATE 1% CREAM 15 GM TUBE TP SCH ×2 (10:42→21:48)
[2018-07-05] MEDS: LIDOCAINE 5% TOPICAL PATCH TP SCH (10:42)
[2018-07-05] MEDS: MAGNESIUM HYDROX 2400MG/30ML ORAL SUSPENSION 30 ML CUP PO PRN (14:50)
[2018-07-05] MEDS: CYCLOBENZAPRINE HCL 10 MG TABLET (FP) PO PRN (21:46)
[2018-07-05] MEDS: MONTELUKAST NA 10 MG TABLET PO SCH (21:46)
[2018-07-05] MEDS: THIAMINE HCL 100 MG TABLET (FP) PO SCH (21:46)
[2018-07-05] MEDS: QUEtiapine FUMARATE 300 MG TABLET PO SCH (21:47)
[2018-07-06] MEDS ORDERED: PT OWN MED DRAWER 7, Y5N ONE ×4 (05:57→16:56)
[2018-07-06] MEDS: AMOX TR/POT CLAV 500MG/125MG TABLETS (FP) PO SCH ×2 (07:14→17:35)
[2018-07-06] MEDS: PRENATAL VITAMINS W/ FOLIC ACID TABLET (FP) PO SCH (10:19)
[2018-07-06] MEDS: PANTOPRAZOLE 20 MG TABLET (FP) PO SCH (10:19)
[2018-07-06] MEDS: NICOTINE 21 MG/24 HOURS TOPICAL PATCH TD SCH (10:19)
[2018-07-06] MEDS: ASPIRIN 81 MG CHEWABLE TABLETS PO SCH (10:19)
[2018-07-06] MEDS: LIDOCAINE 5% TOPICAL PATCH TP SCH (10:20)
[2018-07-06] MEDS: METHYL SALICYLATE/MENTHOL OINT 30 GM TUBE TP SCH ×2 (10:25→21:29)
[2018-07-06] MEDS: ACETAMINOPHEN 325 MG TABLET (FP) PO PRN ×2 (10:26→21:30)
[2018-07-06] MEDS: CYCLOBENZAPRINE HCL 10 MG TABLET (FP) PO PRN ×2 (10:27→21:29)
[2018-07-06] MEDS: BUDESONIDE/FORMETEROL FUMARATE 160/4.5 mcg INHALER IH SCH ×2 (10:33→21:31)
[2018-07-06] MEDS: TOLNAFTATE 1% CREAM 15 GM TUBE TP SCH ×2 (10:33→21:31)
[2018-07-06] MEDS: AMMONIUM LACTATE 12% LOTION 225 GM BOTTLE TP SCH ×2 (10:34→21:31)
[2018-07-06] MEDS: HYDROCHLOROTHIAZIDE 12.5 MG CAPSULE (FP) PO SCH (11:00)
[2018-07-06] MEDS: QUEtiapine FUMARATE 300 MG TABLET PO SCH (21:28)
[2018-07-06] MEDS: MONTELUKAST NA 10 MG TABLET PO SCH (21:28)
[2018-07-06] MEDS: THIAMINE HCL 100 MG TABLET (FP) PO SCH (21:28)
[2018-07-07] MEDS: AMOX TR/POT CLAV 500MG/125MG TABLETS (FP) PO SCH ×2 (07:07→17:52)
[2018-07-07] MEDS: LIDOCAINE 5% TOPICAL PATCH TP SCH (10:29)
[2018-07-07] MEDS: NICOTINE POLACRILEX 2 MG GUM BC PRN (10:30)
[2018-07-07] MEDS: PANTOPRAZOLE 20 MG TABLET (FP) PO SCH (10:31)
[2018-07-07] MEDS: NICOTINE 21 MG/24 HOURS TOPICAL PATCH TD SCH (10:31)
[2018-07-07] MEDS: PRENATAL VITAMINS W/ FOLIC ACID TABLET (FP) PO SCH (10:31)
[2018-07-07] MEDS: ASPIRIN 81 MG CHEWABLE TABLETS PO SCH (10:31)
[2018-07-07] MEDS: ACETAMINOPHEN 325 MG TABLET (FP) PO PRN ×2 (10:32→21:48)
[2018-07-07] MEDS: CYCLOBENZAPRINE HCL 10 MG TABLET (FP) PO PRN ×2 (10:32→21:48)
[2018-07-07] MEDS: BUDESONIDE/FORMETEROL FUMARATE 160/4.5 mcg INHALER IH SCH ×2 (10:32→21:46)
[2018-07-07] MEDS: HYDROCHLOROTHIAZIDE 12.5 MG CAPSULE (FP) PO SCH (10:32)
[2018-07-07] MEDS: TOLNAFTATE 1% CREAM 15 GM TUBE TP SCH ×2 (10:33→21:49)
[2018-07-07] MEDS: AMMONIUM LACTATE 12% LOTION 225 GM BOTTLE TP SCH ×2 (10:34→21:49)
[2018-07-07] MEDS: METHYL SALICYLATE/MENTHOL OINT 30 GM TUBE TP SCH ×2 (10:35→21:49)
[2018-07-07] MEDS ORDERED: PT OWN MED DRAWER 7, Y5N ONE ×4 (11:09→19:27)
[2018-07-07] MEDS: amLODIPine BESYLATE 5 MG TABLET (FP) PO SCH (14:35)
--- NOTE | 2018-07-07 15:45 | PN ---
[facility] Progress Note Note: PT C/O SORE ON RIGHT LOWER INNER JAW. PT DETOXED [facility] AND WAS STARTED ON AMOXICILLIN AND LIDOCAINE SWISH FOR SAME COMPLAINT. TREATMENT IS ONGOING. ALERT O X 3. NAD. Vital Signs - 8 hr 07/07/18 10:41 Pulse Rate 82 Respiratory 17 Rate Blood Pressure 124/88 ORAL EXAM:SORE ON INNER RIGHT LOWER JAW GUM. MM CLEAN AND PINK. PLAN:CONTINUE CURRENT TREATMENT.
[2018-07-07] MEDS: MAGNESIUM HYDROX 2400MG/30ML ORAL SUSPENSION 30 ML CUP PO PRN (17:52)
[2018-07-07] MEDS: MONTELUKAST NA 10 MG TABLET PO SCH (21:46)
[2018-07-07] MEDS: THIAMINE HCL 100 MG TABLET (FP) PO SCH (21:46)
[2018-07-07] MEDS: QUEtiapine FUMARATE 300 MG TABLET PO SCH (21:48)
[2018-07-08] MEDS: METHYL SALICYLATE/MENTHOL OINT 30 GM TUBE TP SCH ×2 (09:44→21:37)
[2018-07-08] MEDS: amLODIPine BESYLATE 5 MG TABLET (FP) PO SCH (09:45)
[2018-07-08] MEDS: PANTOPRAZOLE 20 MG TABLET (FP) PO SCH (09:45)
[2018-07-08] MEDS: PRENATAL VITAMINS W/ FOLIC ACID TABLET (FP) PO SCH (09:45)
[2018-07-08] MEDS: HYDROCHLOROTHIAZIDE 12.5 MG CAPSULE (FP) PO SCH (09:45)
[2018-07-08] MEDS: BUDESONIDE/FORMETEROL FUMARATE 160/4.5 mcg INHALER IH SCH ×2 (09:45→21:36)
[2018-07-08] MEDS: ASPIRIN 81 MG CHEWABLE TABLETS PO SCH (09:45)
[2018-07-08] MEDS: LIDOCAINE 5% TOPICAL PATCH TP SCH (09:46)
[2018-07-08] MEDS: NICOTINE 21 MG/24 HOURS TOPICAL PATCH TD SCH (09:46)
[2018-07-08] MEDS: AMMONIUM LACTATE 12% LOTION 225 GM BOTTLE TP SCH ×2 (09:47→21:36)
[2018-07-08] MEDS: TOLNAFTATE 1% CREAM 15 GM TUBE TP SCH ×2 (09:47→21:36)
[2018-07-08] MEDS: NICOTINE POLACRILEX 2 MG GUM BC PRN (09:47)
[2018-07-08] MEDS ORDERED: PT OWN MED DRAWER 7, Y5N ONE ×3 (10:24→21:38)
[2018-07-08] MEDS: CHLORHEXIDINE GLUCONATE 118 ML MOUTHWASH MM SCH ×2 (11:00→21:36)
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
[2018-07-08] MEDS: THIAMINE HCL 100 MG TABLET (FP) PO SCH (21:35)
[2018-07-08] MEDS: CYCLOBENZAPRINE HCL 10 MG TABLET (FP) PO PRN (21:35)
[2018-07-08] MEDS: MONTELUKAST NA 10 MG TABLET PO SCH (21:35)
[2018-07-08] MEDS: QUEtiapine FUMARATE 300 MG TABLET PO SCH (21:35)
[2018-07-09] MEDS: ACETAMINOPHEN 325 MG TABLET (FP) PO PRN (06:57)
[2018-07-09 07:14] VITALS: TEMP 97.3
--- NOTE | 2018-07-09 08:32 | PN ---
[facility] Progress Note Note: Patient completed this program today.She has met her treatment goals and will continue to address her issues on outpatient basisi.Patient is stable for discharge today.
[2018-07-09] MEDS: NICOTINE 21 MG/24 HOURS TOPICAL PATCH TD SCH (09:12)
[2018-07-09] MEDS: BUDESONIDE/FORMETEROL FUMARATE 160/4.5 mcg INHALER IH SCH (09:12)
[2018-07-09] MEDS: PRENATAL VITAMINS W/ FOLIC ACID TABLET (FP) PO SCH (09:13)
[2018-07-09] MEDS: ASPIRIN 81 MG CHEWABLE TABLETS PO SCH (09:13)
[2018-07-09] MEDS: PANTOPRAZOLE 20 MG TABLET (FP) PO SCH (09:13)
[2018-07-09] MEDS: HYDROCHLOROTHIAZIDE 12.5 MG CAPSULE (FP) PO SCH (09:13)
[2018-07-09] MEDS: amLODIPine BESYLATE 5 MG TABLET (FP) PO SCH (09:13)
[2018-07-09] MEDS: TOLNAFTATE 1% CREAM 15 GM TUBE TP SCH (09:14)
[2018-07-09] MEDS: METHYL SALICYLATE/MENTHOL OINT 30 GM TUBE TP SCH (09:14)
[2018-07-09] MEDS: LIDOCAINE 5% TOPICAL PATCH TP SCH (09:14)
[2018-07-09] MEDS: AMMONIUM LACTATE 12% LOTION 225 GM BOTTLE TP SCH (09:15)
[2018-07-09] MEDS: CHLORHEXIDINE GLUCONATE 118 ML MOUTHWASH MM SCH (09:15)
[2018-07-09 09:43] VITALS: BP 132/86; PULSE 105
== END 2018-07-09 09:25 | disposition home or self-care (01) | DRG 772 ==
LOC: YASAS 11:10 → Y3E 11:11
PROVIDERS: ADMIT Psychiatry & Neurology Psychiatry; ATTEND Psychiatry & Neurology Psychiatry
PROC: HZ42ZZZ Group Counseling for Substance Abuse Treatment, Cognitive-Behavioral (ICD-10-PCS; principal; 2018-07-03)
DX: F10.20 Alcohol dependence, uncomplicated (principal); F14.20 Cocaine dependence, uncomplicated; F17.210 Nicotine dependence, cigarettes, uncomplicated; F19.282 Other psychoactive substance dependence with psychoactive substance-induced sleep disorder; F20.0 Paranoid schizophrenia; F43.10 Post-traumatic stress disorder, unspecified; I10 Essential (primary) hypertension; M19.90 Unspecified osteoarthritis, unspecified site; J44.9 Chronic obstructive pulmonary disease, unspecified; K21.9 Gastro-esophageal reflux disease without esophagitis

== ENCOUNTER 2018-08-05 12:52 | Inpatient (IN) | payer OTHER ==
[2018-08-05 13:48] VITALS: BMI 29.5
--- NOTE | 2018-08-05 19:05 | HP ---
CIWA Score Nausea/Vomitin Muscle Tremors: 2 Anxiety: 3 Agitation: 2 Paroxysmal Sweats: 1-Minimal Palms Moist Orientation: 0-Oriented Tacttile Disturbances: 0-None Auditory Disturbances: 0-None Visual Disturbances: 0-None Headache: 3-Moderate CIWA-Ar Total Score: 13 - Admission Criteria OASAS Guidelines: Admission for Medically Managed Detox: Requires at least one of the followin. CIWA greater than 12 2. Seizures within the past 24 hours 3. Delirium tremens within the past 24 hours 4. Hallucinations within the past 24 hours 5. Acute intervention needed for co occurring medical disorder 6. Acute intervention needed for co occurring psychiatric disorder 7. Severe withdrawal that cannot be handled at a lower level of care (continued vomiting, continued diarrhea, abnormal vital signs) requiring intravenous medication and/or fluids 8. Patient presents the following: CIWA greater than 12 Admission Criteria Met: Admission criteria met Admission ROS [facility] - [facility] Chief Complaint: " I need help to detox from alcohol" Allergies/Adverse Reactions: Allergies Allergy/AdvReac Type Severity Reaction Status Date / Time mushroom Allergy Severe Rash Verified 08/05/18 17:09 No Known Drug Allergies Allergy Verified 08/05/18 17:09 salmon Allergy Severe Difficulty Uncoded 08/05/18 17:09 Breathing History of Present Illness: 58 yo with depression, anxiety, asthma, arthritis, GERD and bipolar/ schizophrenia. Pt was recently admitted to detox/rehab- was discharged from rehab after 5 days , left 07/09. Pt started drinking alcohol as soon as she left rehab. Drinks 4-5 cans of big beer a day, says last drink was yesterday. Also uses $100/week of cocaine. DUR: shows no recent controlled substances, ambien 12/01/17 Urine tox: pos for cocaine, ANTONINO- neg, occ smokes cigarettes Exam Limitations: No Limitations - Ebola screening Have you traveled outside of the country in the last 21 days: No Have you had contact with anyone from an Ebola affected area: No Have you been sick,other than usual withdrawal symptoms: No Do you have a fever: No - Review of Systems Constitutional: No Symptoms Reported (says she has a toothache) EENT: reports: Dental Problems (toothache) Respiratory: reports: No Symptoms reported Cardiac: reports: No Symptoms Reported GI: reports: No Symptoms Reported : reports: No Symptoms Reported Musculoskeletal: reports: No Symptoms Reported Integumentary: reports: No Symptoms Reported Neuro: reports: No Symptoms reported Endocrine: reports: No Symptoms Reported Hematology: reports: No Symptoms Reported Psychiatric: reports: No Sypmtoms Reported Patient History - Patient Medical History Hx Anemia: Yes (Ferrous sulfate, Vitamins) Hx Asthma: Yes Hx Chronic Obstructive Pulmonary Disease (COPD): No Hx Cancer: No Hx Cardiac Disorders: No Hx Congestive Heart Failure: No Hx Hypertension: Yes Hx Hypercholesterolemia: No Hx Pacemaker: No HX Cerebrovascular Accident: No Hx Seizures: No Hx Dementia: No Hx Diabetes: No Hx Gastrointestinal Disorders: Yes (GERD) Hx Liver Disease: No Hx Genitourinary Disorders: No Hx Sexually Transmitted Disorders: No Hx Renal Disease (ESRD): No Hx Thyroid Disease: No Hx Human Immunodeficiency Virus (HIV): No (last 2017 negative) Hx Hepatitis C: No Hx Depression: Yes Hx Suicide Attempt: No Hx Bipolar Disorder: Yes Hx Schizophrenia: Yes - Patient Surgical History Past Surgical History: Yes Hx Neurologic Surgery: No Hx Cataract Extraction: No Hx Cardiac Surgery: No Hx Lung Surgery: No Hx Breast Surgery: No Hx Breast Biopsy: No Hx Abdominal Surgery: No Hx Appendectomy: No Hx Cholecystectomy: No Hx Genitourinary Surgery: No Hx Section: Yes (x2) Hx Orthopedic Surgery: Yes (right ankle fx at age 18) Hx Hysterectomy: No Anesthesia Reaction: No - PPD History Results: cxr(-)11/10/17 - Reproductive History Last Menstrual Period: 05/08/90 - Smoking Cessation Smoking history: Current some day smoker Have you smoked in the past 12 months: Yes Aproximately how many cigarettes per day: 20 Cigars Per Day: 0 Hx Chewing Tobacco Use: No Initiated information on smoking cessation: Yes 'Breaking Loose' booklet given: 08/05/18 - Substance & Tx. History Hx Alcohol Use: Yes (uses beer 24 oz beer- 4-5 cans a day) Hx Substance Use: Yes Substance Use Type: Cocaine ($100/week) Hx Substance Use Treatment: Yes (has been here several times) - Substances Abused Alcohol Route: Oral Frequency: Daily Amount used: 4 CANS BEER Age of first use: 10 Date of Last Use: 08/05/18 Cocaine Route: Smoking Frequency: Daily Amount used: $100 Age of first use: 28 Date of Last Use: 08/05/18 Family Disease History - Family Disease History Family Disease History: Diabetes: Sister, Heart Disease: Father (), Mother (COPD- ), Other: Mother, Brother (only child) Admission Physical Exam [facility] - Vital Signs Vital Signs: Vital Signs - 24 hr 08/05/18 13:43 Temperature 96.8 F L Pulse Rate 90 Respiratory 20 Rate Blood Pressure 125/76 - Physical General Appearance: Yes: Within Normal Limits, Disheveled HEENTM: Yes: Within Normal Limits, Normal Voice, COLIN, Other (pt with dental caries) Respiratory: Yes: Within Normal Limits Neck: Yes: Within Normal Limits Breast: Yes: Breast Exam Deferred Cardiology: Yes: Within Normal Limits, Regular Rhythm, Regular Rate, S1, S2 Abdominal: Yes: Within Normal Limits, Normal Bowel Sounds, Protuberent Genitourinary: Yes: Within Normal Limits Back: Yes: Within Normal Limits Musculoskeletal: Yes: Within Normal Limits Extremities: Yes: Within Normal Limits Neurological: Yes: Within Normal Limits Integumentary: Yes: Within Normal Limits Lymphatic: Yes: Within Normal Limits - Diagnostic (1) Alcohol dependence with uncomplicated withdrawal Current Visit: No Status: Chronic (2) Asthma Current Visit: No Status: Chronic Qualifiers: (3) Cocaine dependence, uncomplicated Current Visit: No Status: Chronic (4) Dental caries Current Visit: No Status: Chronic (5) PTSD (post-traumatic stress disorder) Current Visit: No Status: Chronic (6) Poor dentition Current Visit: No Status: Chronic (7) Anxiety Current Visit: No Status: Suspected Cleared for Admission [facility] - Detox or Rehab [facility] Level of Care: Medically Managed Detox Regimen/Protocol: Librium [facility] Breath Alcohol Content Breath Alcohol Content: 0 Urine Pregancy Test - Result Urine Test Results: Negative- NO Line Present Urine Drug Screen - Results Drug Screen Negative: No Urine Drug Screen Results: KULWINDER-Cocaine
[2018-08-05] MEDS ORDERED: ALBUTEROL SO4 8 GM HFA INHALER IH PRN (19:18)
[2018-08-05] MEDS ORDERED: COLLOIDAL OATMEAL 1 BAR EACH TP PRN (19:23)
[2018-08-05] MEDS ORDERED: AMMONIUM LACTATE 12% LOTION 225 GM BOTTLE TP PRN (19:23)
[2018-08-05] MEDS ORDERED: NICOTINE POLACRILEX 4 MG GUM BUC PRN (19:34)
[2018-08-05] MEDS: CYCLOBENZAPRINE HCL 10 MG TABLET (FP) PO PRN (21:56)
[2018-08-05] MEDS: TOLNAFTATE 1% CREAM 15 GM TUBE TP SCH (21:56)
[2018-08-05] MEDS: MONTELUKAST NA 10 MG TABLET PO SCH (21:56)
[2018-08-05] MEDS: BUDESONIDE/FORMETEROL FUMARATE 160/4.5 mcg INHALER IH SCH (21:57)
[2018-08-05] MEDS: chlordiazePOXIDE HCL 25 MG CAPSULE PO SCH (22:00)
[2018-08-05] MEDS ORDERED: P-EPHED 60MG/TRIPROLIDI 2.5MG TABLET PO PRN (23:20)
[2018-08-06] MEDS: chlordiazePOXIDE HCL 25 MG CAPSULE PO PRN ×2 (00:32→12:23)
[2018-08-06] MEDS: chlordiazePOXIDE HCL 25 MG CAPSULE PO SCH ×3 (05:09→17:23)
[2018-08-06] MEDS: AMOX TR/POT CLAV 500MG/125MG TABLETS (FP) PO SCH ×2 (07:22→17:22)
[2018-08-06] MEDS: BUDESONIDE/FORMETEROL FUMARATE 160/4.5 mcg INHALER IH SCH ×2 (10:29→23:11)
[2018-08-06] MEDS: amLODIPine BESYLATE 5 MG TABLET (FP) PO SCH (10:29)
[2018-08-06] MEDS: HYDROCHLOROTHIAZIDE 12.5 MG CAPSULE (FP) PO SCH (10:29)
[2018-08-06] MEDS: TOLNAFTATE 1% CREAM 15 GM TUBE TP SCH ×2 (10:29→23:11)
[2018-08-06] MEDS: PANTOPRAZOLE 20 MG TABLET (FP) PO SCH (10:29)
[2018-08-06] MEDS: ASPIRIN 81 MG CHEWABLE TABLETS PO SCH (10:29)
[2018-08-06] MEDS: NICOTINE 14 MG/24 HOURS TOPICAL PATCH TD SCH (10:38)
[2018-08-06] MEDS: COLLOIDAL OATMEAL 1 BAR EACH TP SCH (12:01)
[2018-08-06] MEDS: METHYL SALICYLATE/MENTHOL OINT 30 GM TUBE TP SCH ×2 (12:20→23:10)
[2018-08-06] MEDS: AMMONIUM LACTATE 12% LOTION 225 GM BOTTLE TP SCH ×2 (12:20→23:11)
--- NOTE | 2018-08-06 14:43 | PN ---
S CIWA - CIWA Score Nausea/Vomitin Muscle Tremors: 4-Moderate,w/Arms Extend Anxiety: 4-Mod. Anxious/Guarded Agitation: 4-Moderately Restless Paroxysmal Sweats: 3 Orientation: 0-Oriented Tacttile Disturbances: 0-None Auditory Disturbances: 0-None Visual Disturbances: 0-None Headache: 0-None Present CIWA-Ar Total Score: 18 [facility] Progress Note (SOAP) Subjective: Chills, dizzy, headache, interrupted sleep, anxious, agitated Objective: 08/06/18 14:45 Last Vital Signs Temp Pulse Resp BP Pulse Ox 96.6 F L 94 H 20 118/84 08/06/18 13:33 08/06/18 13:33 08/06/18 13:33 08/06/18 13:33 Admission labs ordered Assessment: 08/06/18 14:47 Withdrawal symptoms Plan: Continue detox Encouraged PO water intake Follow up on admission labs Bengay ordered for c/o pain in knees due to arthritis (as per patient)
[2018-08-06 16:19] LABS: URINE APPEARANCE SLCLOUDY; URINE BILIRUBIN NEGATIVE (<2.0 mg/dL); URINE COLOR LTYELLOW; URINE GLUCOSE (UA) NEGATIVE (NEGATIVE); URINE KETONE NEGATIVE (NEGATIVE); URINE LEUK ESTERASE 3+ (NEGATIVE); URINE NITRITE NEGATIVE (NEGATIVE); URINE PROTEIN NEGATIVE (NEGATIVE); URINE UROBILINOGEN NEGATIVE mg/dL (0.2-1.0)
[2018-08-06 16:34] LABS: EPI CELLS RARE /HPF (FEW)
[2018-08-06] MEDS: MAGNESIUM HYDROX 2400MG/30ML ORAL SUSPENSION 30 ML CUP PO PRN (19:17)
[2018-08-06] MEDS: chlordiazePOXIDE 5 MG CAPSULE PO SCH (22:47)
[2018-08-06] MEDS: CYCLOBENZAPRINE HCL 10 MG TABLET (FP) PO PRN (22:49)
[2018-08-06] MEDS ORDERED: MELATONIN 5 MG TABLETS PO PRN (22:57)
[2018-08-06] MEDS ORDERED: chlordiazePOXIDE HCL 25 MG CAPSULE PO SCH (23:00)
[2018-08-06] MEDS: MONTELUKAST NA 10 MG TABLET PO SCH (23:11)
[2018-08-07] MEDS: MAGNESIUM HYDROX 2400MG/30ML ORAL SUSPENSION 30 ML CUP PO PRN (03:16)
[2018-08-07] MEDS: chlordiazePOXIDE 5 MG CAPSULE PO SCH ×2 (06:10→10:42)
[2018-08-07] MEDS ORDERED: MAGNESIUM CITRATE 300 ML BOTTLE PO PRN (07:43)
[2018-08-07] MEDS ORDERED: ONDANSETRON *ODT* 4 MG TABLET SL PRN (10:07)
[2018-08-07 10:23] VITALS: BP 112/81; PULSE 86; TEMP 95.6
[2018-08-07 10:35] LABS: BASO % 0.3 % (0-2.0); EOS % 1.5 % (0-4.5); HEMATOCRIT 37.9 % (32.4-45.2); HEMOGLOBIN 12.2 GM/dL (10.7-15.3); LYMPH % 58.7 % (8-40); MCH 31.9 pg (25.7-33.7); MCHC 32.1 g/dl (32.0-36.0); MEAN CELL VOLUME 99.2 fl (80-96); MEAN PLT VOLUME 7.6 fl (7.5-11.1); NEUT % 29.5 % (42.8-82.8); PLATELET COUNT 265 K/MM3 (134-434); RBC 3.82 M/mm3 (3.60-5.2); RDW 13.7 % (11.6-15.6); WHITE BLOOD COUNT 3.6 K/mm3 (4.0-10.0)
[2018-08-07] MEDS: COLLOIDAL OATMEAL 1 BAR EACH TP SCH (10:41)
[2018-08-07] MEDS: AMOX TR/POT CLAV 500MG/125MG TABLETS (FP) PO SCH (10:42)
[2018-08-07] MEDS: amLODIPine BESYLATE 5 MG TABLET (FP) PO SCH (10:42)
[2018-08-07] MEDS: HYDROCHLOROTHIAZIDE 12.5 MG CAPSULE (FP) PO SCH (10:42)
[2018-08-07] MEDS: ASPIRIN 81 MG CHEWABLE TABLETS PO SCH (10:42)
[2018-08-07] MEDS: NICOTINE 14 MG/24 HOURS TOPICAL PATCH TD SCH (10:44)
[2018-08-07] MEDS: AMMONIUM LACTATE 12% LOTION 225 GM BOTTLE TP SCH (10:44)
[2018-08-07] MEDS: TOLNAFTATE 1% CREAM 15 GM TUBE TP SCH (10:44)
[2018-08-07] MEDS: BUDESONIDE/FORMETEROL FUMARATE 160/4.5 mcg INHALER IH SCH (10:44)
[2018-08-07] MEDS: METHYL SALICYLATE/MENTHOL OINT 30 GM TUBE TP SCH (10:44)
[2018-08-07] MEDS: PANTOPRAZOLE 20 MG TABLET (FP) PO SCH (10:44)
[2018-08-07 10:56] LABS: ALBUMIN 2.9 g/dl (3.4-5.0); ALK PHOS 78 U/L (45-117); ANION GAP 8 MMOL/L (8-16); BILIRUBIN,TOTAL 0.2 mg/dL (0.2-1); BLOOD UREA NITROGEN 16 mg/dL (7-18); CALCIUM 8.5 mg/dL (8.5-10.1); CHLORIDE 105 mmol/L (98-107); CO2 28 mmol/L (21-32); CREATININE 0.8 mg/dL (0.55-1.3); GLUCOSE,RANDOM 88 mg/dL (74-106); POTASSIUM 4.1 mmol/L (3.5-5.1); SGOT/AST 15 U/L (15-37); SGPT/ALT 21 U/L (13-61); SODIUM 141 mmol/L (136-145)
[2018-08-07] MEDS ORDERED: COLLOIDAL OATMEAL 1 BAR EACH TP PRN (12:08)
--- NOTE | 2018-08-07 16:19 | DS ---
[facility] Detox Discharge Summary Admission Date: 08/05/18 Discharge Date: 08/07/18 - History Present History: Alcohol Dependence, Cocaine Dependence Additional Comments: Patient demanded to leave AMA. As per patient, she has been here long enough and needs to leave. Patient encouraged by staff to complete detox but she insisted on leaving. Patient instructed on calling [phone] if feeling sick or any withdrawal symptoms and to see her PCP within 3 days. Pertinent Past History: HTN Nicotine Alcohol dependence Cocaine dependence Asthma Arthritis GERD Bipolar disorder Schizophrenia - Physical Exam Results Vital Signs: Vital Signs Temperature 95.6 F L 08/07/18 10:22 Pulse Rate 86 08/07/18 10:22 Respiratory Rate 18 08/07/18 10:22 Blood Pressure 112/81 08/07/18 10:22 O2 Sat by Pulse Oximetry (%) Pertinent Admission Physical Exam Findings: Withdrawal symptoms Laboratory Tests 08/06/18 08/07/18 08/07/18 11:00 07:30 07:30 WBC 3.6 L RBC 3.82 Hgb 12.2 Hct 37.9 MCV 99.2 H MCH 31.9 MCHC 32.1 RDW 13.7 Plt Count 265 MPV 7.6 Absolute Neuts (auto) 1.1 L Neutrophils % 29.5 L Lymphocytes % 58.7 H Monocytes % 10.0 Eosinophils % 1.5 Basophils % 0.3 Nucleated RBC % 0 Sodium 141 Potassium 4.1 Chloride 105 Carbon Dioxide 28 Anion Gap 8 BUN 16 Creatinine 0.8 Creat Clearance w eGFR > 60 Random Glucose 88 Calcium 8.5 Total Bilirubin 0.2 AST 15 ALT 21 Alkaline Phosphatase 78 Total Protein 6.0 L Albumin 2.9 L Urine Color Ltyellow Urine Appearance Slcloudy Urine pH 6.0 Ur Specific [place] 1.013 Urine Protein Negative Urine Glucose (UA) Negative Urine Ketones Negative Urine Blood Negative Urine Nitrite Negative Urine Bilirubin Negative Urine Urobilinogen Negative Ur Leukocyte Esterase 3+ H Urine WBC (Auto) 108 Urine RBC (Auto) 3 Ur Epithelial Cells Rare Labs reviewed - Medication Discharge Medications: Ambulatory Orders Aspirin [ASA -] 81 mg PO DAILY #30 mg 10/08/17 Fluticasone/Salmeterol [Advair 250-50 Diskus] 1 each IH BID #1 disk.w.dev Pantoprazole Sodium [Protonix -] 20 mg PO DAILY #14 tablet.ec 02/22/18 Cyclobenzaprine HCl [Flexeril -] 10 mg PO TID PRN tablet 05/01/18 Tolnaftate 1% Cream [Tinactin 1% Cream -] 1 applic TP BID cream..g. 05/01/18 Albuterol Sulfate Inhaler - [Ventolin HFA Inhaler -] 2 puff IH Q4H PRN #1 inhaler 07/02/18 Budesonide/Formeterol Fumarate [SYMBICORT 160/4.5mcg -] 2 puff IH BID #1 inhaler 07/02/18 Hydrochlorothiazide [Hctz -] 12.5 mg PO DAILY #14 cap 07/02/18 Montelukast Na [Singulair -] 10 mg PO HS #14 tablet 07/02/18 Amox-Tr/K Cl [Augmentin 500-125mg Tablet -] 500 mg PO BID 07/03/18 Amlodipine Besylate [Norvasc -] 5 mg PO DAILY 07/07/18 - Diagnosis (1) Bipolar disorder Status: Chronic (2) Alcohol dependence with uncomplicated withdrawal Status: Acute (3) Arthritis Status: Chronic (4) Asthma Status: Chronic Qualifiers: (5) Cocaine dependence, uncomplicated Status: Chronic (6) Depression Status: Chronic Qualifiers: Depression Type: unspecified Qualified Code(s): F32.9 - Major depressive disorder, single episode, unspecified (7) GERD (gastroesophageal reflux disease) Status: Chronic Qualifiers: (8) Hypertension Status: Chronic Qualifiers: (9) Nicotine dependence Status: Chronic Qualifiers: (10) Schizophrenia, paranoid type Status: Chronic (11) Anxiety Status: Chronic - AMA Did Patient Leave Against Medical Advice: Yes (Instructed to call 911 if feeling sick or withdrawal symptoms)
[2018-08-07] MEDS ORDERED: chlordiazePOXIDE 5 MG CAPSULE PO SCH ×3 (23:00)
--- NOTE | 2018-08-08 17:33 | EKG ---
Test Reason : Blood Pressure : / mmHG Vent. Rate : 079 BPM Atrial Rate : 079 BPM P-R Int : 128 ms QRS Dur : 088 ms QT Int : 394 ms P-R-T Axes : 064 051 048 degrees QTc Int : 451 ms NORMAL SINUS RHYTHM WITH SINUS ARRHYTHMIA NORMAL ECG WHEN COMPARED WITH ECG OF 29-JUN-2018 22:58, NO SIGNIFICANT CHANGE WAS FOUND Confirmed by MD DANY, NILO ([id number]) on 08/08/2018 5:33:12 PM Referred By: Confirmed By:NILO SAENZ MD
[2018-08-08] MEDS ORDERED: chlordiazePOXIDE HCL 10 MG CAPSULE PO SCH (23:00)
== END 2018-08-07 13:54 | disposition left against medical advice (07) | DRG 770 ==
LOC: YASAS 12:52 → Y3N 20:30
PROC: HZ2ZZZZ Detoxification Services for Substance Abuse Treatment (ICD-10-PCS; principal; 2018-08-05)
DX: F10.230 Alcohol dependence with withdrawal, uncomplicated (principal); F14.20 Cocaine dependence, uncomplicated; F17.210 Nicotine dependence, cigarettes, uncomplicated; F20.0 Paranoid schizophrenia; F41.9 Anxiety disorder, unspecified; F32.9 Major depressive disorder, single episode, unspecified; F31.9 Bipolar disorder, unspecified; F43.10 Post-traumatic stress disorder, unspecified; I10 Essential (primary) hypertension; D64.9 Anemia, unspecified; M19.90 Unspecified osteoarthritis, unspecified site; K21.9 Gastro-esophageal reflux disease without esophagitis; J45.909 Unspecified asthma, uncomplicated; K02.9 Dental caries, unspecified; K06.8 Other specified disorders of gingiva and edentulous alveolar ridge; Z91.013 Allergy to seafood
CPT/HCPCS: 36415; 80053; 81003; 81015; 85025; 86593; 93005; 93010

== ENCOUNTER 2018-09-13 12:44 | Inpatient (IN) | payer OTHER ==
[2018-09-13 14:56] VITALS: BMI 28.8
--- NOTE | 2018-09-13 17:02 | HP ---
CIWA Score Nausea/Vomitin Muscle Tremors: 2 Anxiety: 2 Agitation: 2 Paroxysmal Sweats: 1-Minimal Palms Moist Orientation: 0-Oriented Tacttile Disturbances: 1-Very Mild Itch/Numbness Auditory Disturbances: 1-Very Mild Visual Disturbances: 0-None Headache: 2-Mild CIWA-Ar Total Score: 13 - Admission Criteria OASAS Guidelines: Admission for Medically Managed Detox: Requires at least one of the followin. CIWA greater than 12 2. Seizures within the past 24 hours 3. Delirium tremens within the past 24 hours 4. Hallucinations within the past 24 hours 5. Acute intervention needed for co occurring medical disorder 6. Acute intervention needed for co occurring psychiatric disorder 7. Severe withdrawal that cannot be handled at a lower level of care (continued vomiting, continued diarrhea, abnormal vital signs) requiring intravenous medication and/or fluids 8. Patient presents the following: CIWA greater than 12 Admission Criteria Met: Admission criteria met Admission ROS S - HPI Chief Complaint: i need help to stop drinking alcohol and cocaine Allergies/Adverse Reactions: Allergies Allergy/AdvReac Type Severity Reaction Status Date / Time mushroom Allergy Severe Rash Verified 09/13/18 17:25 No Known Drug Allergies Allergy Verified 09/13/18 17:25 salmon Allergy Severe Difficulty Uncoded 09/13/18 17:25 Breathing History of Present Illness: this 58 years old female with alcohol and cocaine dependence,seeking detox, withdrawal symptom,last detox 08/05/18 to not completed syncope treated for uti with levofloxacin 750 mgs po daily by pmd for 2 days,stated need 5 more days hypertension obesity nicotine dependence longest periofd of sobriety 3 and half year plan for rehab depression on seroquel Exam Limitations: No Limitations - Ebola screening Have you traveled outside of the country in the last 21 days: No (N) Have you had contact with anyone from an Ebola affected area: No Have you been sick,other than usual withdrawal symptoms: No Do you have a fever: No - Review of Systems Constitutional: Chills, Loss of Appetite, Malaise, Night Sweats, Changes in sleep, Weakness EENT: reports: Tearing, Nose Congestion Respiratory: reports: No Symptoms reported Cardiac: reports: No Symptoms Reported GI: reports: Nausea, Vomiting, Abdominal cramping Musculoskeletal: reports: Back Pain, Muscle Pain Integumentary: reports: Dryness Neuro: reports: Headache, Tremors Endocrine: reports: No Symptoms Reported Hematology: reports: No Symptoms Reported Psychiatric: reports: No Sypmtoms Reported, Judgement Intact, Mood/Affect Appropiate, Orientated x3, Depressed Patient History - Patient Medical History Hx Anemia: Yes (Ferrous sulfate, Vitamins) Hx Asthma: Yes (on albuterol inhaler) Hx Chronic Obstructive Pulmonary Disease (COPD): No Hx Cancer: No Hx Cardiac Disorders: No Hx Congestive Heart Failure: No Hx Hypertension: Yes (on med) Hx Hypercholesterolemia: No Hx Pacemaker: No HX Cerebrovascular Accident: No Hx Seizures: No Hx Dementia: No Hx Diabetes: No Hx Gastrointestinal Disorders: Yes (GERD) Hx Liver Disease: No Hx Genitourinary Disorders: Yes (uti) Hx Sexually Transmitted Disorders: No Hx Renal Disease (ESRD): No Hx Thyroid Disease: No Hx Human Immunodeficiency Virus (HIV): No (last 2017 negative) Hx Hepatitis C: No Hx Depression: Yes Hx Suicide Attempt: No Hx Bipolar Disorder: Yes Hx Schizophrenia: Yes Other Medical History: no suicidal,no homicidal - Patient Surgical History Past Surgical History: Yes Hx Neurologic Surgery: No Hx Cataract Extraction: No Hx Cardiac Surgery: No Hx Lung Surgery: No Hx Breast Surgery: No Hx Breast Biopsy: No Hx Abdominal Surgery: No Hx Appendectomy: No Hx Cholecystectomy: No Hx Genitourinary Surgery: No Hx Section: Yes (x2) Hx Orthopedic Surgery: Yes (right ankle fx at age 18) Hx Hysterectomy: No Anesthesia Reaction: No - PPD History Previous Implant?: Yes Documented Results: Positive w/proof Implanted On Prior R Admission?: No Results: cxr(-)11/10/17 PPD to be Administered?: No - Reproductive History Patient is a Female of Child Bearing Age (11 -55 yrs old): No Last Menstrual Period: 05/08/90 Patient : No - Smoking Cessation Smoking history: Current some day smoker Have you smoked in the past 12 months: Yes Aproximately how many cigarettes per day: 20 Cigars Per Day: 0 Hx Chewing Tobacco Use: No Initiated information on smoking cessation: Yes 'Breaking Loose' booklet given: 09/13/18 - Substance & Tx. History Hx Alcohol Use: Yes Hx Substance Use: No Substance Use Type: Alcohol, Cocaine Hx Substance Use Treatment: Yes ([facility] 08/05/18 to 11/30/18 not completed) - Substances Abused Alcohol Route: Oral Frequency: Daily Amount used: 1 pint of aracelis/6 packs of 24 ozs of beer Age of first use: 10 Date of Last Use: 09/12/18 Cocaine Route: Smoking Frequency: Daily Amount used: 100$ Age of first use: 28 Date of Last Use: 09/12/18 Family Disease History - Family Disease History Family Disease History: Diabetes: Sister, Heart Disease: Father (), Mother (COPD- ), Other: Mother, Brother (only child) Admission Physical Exam [facility] - Vital Signs Vital Signs: Vital Signs - 24 hr 09/13/18 14:53 Temperature 96.7 F L Pulse Rate 86 Respiratory 18 Rate Blood Pressure 114/67 - Physical General Appearance: Yes: Moderate Distress, Tremorous, Irritable, Sweating, Anxious HEENTM: Yes: Normal ENT Inspection, COLIN, Pharynx Normal Respiratory: Yes: Lungs Clear, Normal Breath Sounds, No Respiratory Distress, Other (astma) Neck: Yes: Within Normal Limits, Supple, Trachea in good position Breast: Yes: Breast Exam Deferred Cardiology: Yes: Within Normal Limits, Regular Rhythm, Regular Rate, S1, S2 Abdominal: Yes: Within Normal Limits, Normal Bowel Sounds, Non Tender, Soft Genitourinary: Yes: Within Normal Limits, Other (uti) Back: Yes: Within Normal Limits, Normal Inspection, Muscle Spasm Musculoskeletal: Yes: Back pain, Muscle Pain, Other (paini the left knee) Extremities: Yes: Tremors Neurological: Yes: manager financial II-XII NML intact, Fully Oriented, Alert, Motor Strength 5/5 Integumentary: Yes: Dry Lymphatic: Yes: Within Normal Limits - Diagnostic (1) Alcohol dependence with uncomplicated withdrawal Current Visit: No Status: Acute (2) Arthritis Current Visit: No Status: Chronic (3) Asthma Current Visit: No Status: Chronic Qualifiers: (4) GERD (gastroesophageal reflux disease) Current Visit: No Status: Chronic Qualifiers: (5) Hypertension Current Visit: No Status: Chronic Qualifiers: (6) Nicotine dependence Current Visit: No Status: Chronic Qualifiers: (7) Bipolar disorder Current Visit: Yes Status: Acute (8) Cocaine dependence Current Visit: Yes Status: Acute Cleared for Admission [facility] - Detox or Rehab [facility] Level of Care: Medically Managed Detox Regimen/Protocol: Librium [facility] Breath Alcohol Content Breath Alcohol Content: 0 Urine Pregancy Test - Result Urine Test Results: Negative- NO Line Present Urine Drug Screen - Results Drug Screen Negative: No Urine Drug Screen Results: KULWINDER-Cocaine
[2018-09-13] MEDS ORDERED: IBUPROFEN 400 MG TABLET (FP) PO PRN (17:19)
[2018-09-13] MEDS ORDERED: MAG HYDROX/AL HYDROX/SIMETH 30 ML UNIT-DOSE CUP PO PRN (17:19)
[2018-09-13] MEDS ORDERED: MENTHOL/PHENOL 1 EACH UD MM PRN (17:19)
[2018-09-13] MEDS ORDERED: LOPERAMIDE HCL 2 MG CAPSULE PO PRN (17:19)
[2018-09-13] MEDS ORDERED: MAGNESIUM CITRATE 300 ML BOTTLE PO PRN (17:19)
[2018-09-13] MEDS ORDERED: hydrOXYzine PAMOATE 50 MG CAPSULE (FP) PO PRN (17:19)
[2018-09-13] MEDS ORDERED: MAGNESIUM HYDROX 2400MG/30ML ORAL SUSPENSION 30 ML CUP PO PRN (17:19)
[2018-09-13] MEDS ORDERED: ACETAMINOPHEN 325 MG TABLET (FP) PO PRN (17:19)
[2018-09-13] MEDS ORDERED: NICOTINE POLACRILEX 4 MG GUM BC PRN (17:19)
[2018-09-13] MEDS ORDERED: guaiFENesin/D-METHORPHAN HB 10 ML UNIT-DOSE CUPS PO PRN (17:19)
[2018-09-13] MEDS ORDERED: chlordiazePOXIDE HCL 25 MG CAPSULE PO PRN (17:19)
[2018-09-13] MEDS ORDERED: ALBUTEROL SO4 8 GM HFA INHALER IH PRN (17:22)
[2018-09-13] MEDS ORDERED: COLLOIDAL OATMEAL 1 BAR EACH TP PRN (17:25)
[2018-09-13] MEDS: P-EPHED 60MG/TRIPROLIDI 2.5MG TABLET PO PRN (19:04)
[2018-09-13] MEDS: NICOTINE 21 MG/24 HOURS TOPICAL PATCH TD SCH (19:06)
[2018-09-13] MEDS: VITAMINS A AND D TOPICAL OINTMENT 60 GM TUBE TP SCH ×2 (19:07→22:59)
[2018-09-13] MEDS ORDERED: MONTELUKAST NA 10 MG TABLET PO SCH (22:00)
[2018-09-13] MEDS: THIAMINE HCL 100 MG TABLET (FP) PO SCH (22:14)
[2018-09-13] MEDS: MELATONIN 5 MG TABLETS PO PRN (22:15)
[2018-09-13] MEDS: MONTELUKAST NA 10 MG TABLET PO SCH (22:15)
[2018-09-13] MEDS: chlordiazePOXIDE HCL 25 MG CAPSULE PO SCH (22:15)
[2018-09-13] MEDS: BUDESONIDE/FORMETEROL FUMARATE 160/4.5 mcg INHALER IH SCH (22:15)
[2018-09-13] MEDS ORDERED: chlordiazePOXIDE HCL 25 MG CAPSULE PO SCH (23:00)
[2018-09-14] MEDS: MELATONIN 5 MG TABLETS PO PRN ×2 (00:55→22:59)
[2018-09-14] MEDS: chlordiazePOXIDE HCL 25 MG CAPSULE PO SCH ×6 (06:42→23:04)
[2018-09-14 10:14] LABS: ALBUMIN 2.8 g/dl (3.4-5.0); ALK PHOS 86 U/L (45-117); ANION GAP 8 MMOL/L (8-16); BILIRUBIN,TOTAL 0.2 mg/dL (0.2-1); BLOOD UREA NITROGEN 13 mg/dL (7-18); CALCIUM 8.3 mg/dL (8.5-10.1); CHLORIDE 105 mmol/L (98-107); CO2 28 mmol/L (21-32); CREATININE 0.9 mg/dL (0.55-1.3); GLUCOSE,RANDOM 136 mg/dL (74-106); POTASSIUM 3.8 mmol/L (3.5-5.1); SGOT/AST 13 U/L (15-37); SGPT/ALT 16 U/L (13-61); SODIUM 142 mmol/L (136-145)
[2018-09-14 10:21] LABS: HEMOGLOBIN 11.9 GM/dL (10.7-15.3); MEAN CELL VOLUME 97.2 fl (80-96); MEAN PLT VOLUME 7.3 fl (7.5-11.1); PLATELET COUNT 395 K/MM3 (134-434); RBC 3.39 M/mm3 (3.60-5.2); WHITE BLOOD COUNT 3.9 K/mm3 (4.0-10.0)
[2018-09-14] MEDS: HYDROCHLOROTHIAZIDE 12.5 MG CAPSULE (FP) PO SCH (10:23)
[2018-09-14] MEDS: PRENATAL VITAMINS W/ FOLIC ACID TABLET (FP) PO SCH (10:23)
[2018-09-14] MEDS: amLODIPine BESYLATE 5 MG TABLET (FP) PO SCH (10:23)
[2018-09-14] MEDS: PANTOPRAZOLE 20 MG TABLET (FP) PO SCH (10:23)
[2018-09-14] MEDS: ASPIRIN 81 MG CHEWABLE TABLETS PO SCH (10:23)
[2018-09-14] MEDS: BUDESONIDE/FORMETEROL FUMARATE 160/4.5 mcg INHALER IH SCH ×2 (10:23→22:59)
[2018-09-14] MEDS: NICOTINE 21 MG/24 HOURS TOPICAL PATCH TD SCH (10:28)
[2018-09-14] MEDS: VITAMINS A AND D TOPICAL OINTMENT 60 GM TUBE TP SCH ×4 (10:28→23:01)
[2018-09-14] MEDS: LIDOCAINE 5% TOPICAL PATCH TP SCH (13:10)
[2018-09-14] MEDS: METHYL SALICYLATE/MENTHOL OINT 30 GM TUBE TP SCH ×2 (13:17→22:59)
--- NOTE | 2018-09-14 14:29 | PN ---
[facility] CIWA - CIWA Score Nausea/Vomitin-No Nausea/No Vomiting Muscle Tremors: None Anxiety: 4-Mod. Anxious/Guarded Agitation: 0-Normal Activity Paroxysmal Sweats: 3 Orientation: 0-Oriented Tacttile Disturbances: 3-Moderate Itch/Numb/Burn Auditory Disturbances: 2-Mild Harshness/Frighten Visual Disturbances: 0-None Headache: 0-None Present CIWA-Ar Total Score: 12 S Progress Note (SOAP) Subjective: Sweating, Stomach Cramping, Constipation, Body Aches. Objective: PATIENT A & O X 3, OBSERVED AMBULATING ON UNIT. IN NO ACUTE DISTRESS. 09/14/18 14:27 Vital Signs Temperature 97.2 F L 09/14/18 14:25 Pulse Rate 88 09/14/18 14:25 Respiratory Rate 18 09/14/18 14:25 Blood Pressure 110/69 09/14/18 14:25 O2 Sat by Pulse Oximetry (%) Laboratory Tests 09/14/18 09/14/18 09/14/18 07:00 07:00 07:00 WBC 3.9 L RBC 3.39 L Hgb 11.9 Hct 33.0 MCV 97.2 H MCH 35.0 H MCHC 36.0 RDW 14.0 Plt Count 395 D MPV 7.3 L Sodium 142 Potassium 3.8 Chloride 105 Carbon Dioxide 28 Anion Gap 8 BUN 13 Creatinine 0.9 Creat Clearance w eGFR > 60 Random Glucose 136 H Calcium 8.3 L Total Bilirubin 0.2 AST 13 L ALT 16 Alkaline Phosphatase 86 Total Protein 6.0 L Albumin 2.8 L RPR Titer Nonreactive LABS NOTED. UA, HIV AB RESULTS PENDING. 09/14/18 14:28 Assessment: 09/14/18 14:27 WITHDRAWAL SYMPTOMS. Plan: CONTINUE DETOX. INCREASE DAILY PO FLUID INTAKE. PRN MOM FOR CONSTIPATION. LIDODERM PATCH FOR LOWER BACK PAIN. LEONILA-BOATENG FOR BILATERAL KNEE PAIN.
[2018-09-14 15:25] LABS: URINE APPEARANCE SLCLOUDY; URINE BILIRUBIN NEGATIVE (<2.0 mg/dL); URINE COLOR LTYELLOW; URINE GLUCOSE (UA) NEGATIVE (NEGATIVE); URINE KETONE NEGATIVE (NEGATIVE); URINE LEUK ESTERASE 3+ (NEGATIVE); URINE NITRITE NEGATIVE (NEGATIVE); URINE PROTEIN NEGATIVE (NEGATIVE); URINE UROBILINOGEN NEGATIVE mg/dL (0.2-1.0)
[2018-09-14 15:26] LABS: EPI CELLS RARE /HPF (FEW)
--- NOTE | 2018-09-14 16:38 | PN ---
[facility] Progress Note Note: RESULTS OF ADMISSION UA NOTED. PATIENT CURRENTLY BEING TREATED FOR UA (WAS BEING TREATED FROM BEFORE ADMISSION TO DETOX UNIT AND CONTINUED WHILE ADMITTED TO DETOX UNIT). WILL RE-CHECK UA TOMORROW TO SEE IF ANY CHANGE. Jack TAVERAS NP
[2018-09-14] MEDS: CYCLOBENZAPRINE HCL 5 MG TABLET PO PRN (22:58)
[2018-09-14] MEDS: MONTELUKAST NA 10 MG TABLET PO SCH (22:59)
[2018-09-14] MEDS: LIDOCAINE PATCH REMOVAL MC SCH (22:59)
[2018-09-14] MEDS: THIAMINE HCL 100 MG TABLET (FP) PO SCH (23:02)
[2018-09-15] MEDS: chlordiazePOXIDE HCL 25 MG CAPSULE PO SCH ×5 (05:13→17:47)
[2018-09-15] MEDS: ASPIRIN 81 MG CHEWABLE TABLETS PO SCH (10:51)
[2018-09-15] MEDS: HYDROCHLOROTHIAZIDE 12.5 MG CAPSULE (FP) PO SCH ×2 (10:51→12:05)
[2018-09-15] MEDS: METHYL SALICYLATE/MENTHOL OINT 30 GM TUBE TP SCH ×2 (10:51→22:02)
[2018-09-15] MEDS: PANTOPRAZOLE 20 MG TABLET (FP) PO SCH (10:52)
[2018-09-15] MEDS: amLODIPine BESYLATE 5 MG TABLET (FP) PO SCH (10:52)
[2018-09-15] MEDS: NICOTINE 21 MG/24 HOURS TOPICAL PATCH TD SCH (10:52)
[2018-09-15] MEDS: LIDOCAINE 5% TOPICAL PATCH TP SCH (10:52)
[2018-09-15] MEDS: BUDESONIDE/FORMETEROL FUMARATE 160/4.5 mcg INHALER IH SCH ×2 (10:52→22:01)
[2018-09-15] MEDS: VITAMINS A AND D TOPICAL OINTMENT 60 GM TUBE TP SCH ×4 (10:52→22:03)
[2018-09-15] MEDS: PRENATAL VITAMINS W/ FOLIC ACID TABLET (FP) PO SCH (10:52)
[2018-09-15] MEDS ORDERED: amLODIPine BESYLATE 5 MG TABLET (FP) PO ONE (11:56)
[2018-09-15] MEDS ORDERED: ASPIRIN 81 MG CHEWABLE TABLETS PO ONE (11:56)
--- NOTE | 2018-09-15 12:10 | PN ---
[facility] CIWA - CIWA Score Nausea/Vomitin-No Nausea/No Vomiting Muscle Tremors: 2 Anxiety: 4-Mod. Anxious/Guarded Agitation: 4-Moderately Restless Paroxysmal Sweats: No Perspiration Orientation: 0-Oriented Tacttile Disturbances: 0-None Auditory Disturbances: 0-None Visual Disturbances: 0-None Headache: 0-None Present CIWA-Ar Total Score: 10 S Progress Note (SOAP) Subjective: PATIENT CONTINUES WITH LIBRIUM DETOX. C/O CHILLS AND INTERRUPTED SLEEP. Vital Signs Temperature 96.6 F L 09/15/18 09:27 Pulse Rate 102 H 09/15/18 09:27 Respiratory Rate 18 09/15/18 09:27 Blood Pressure 106/70 09/15/18 09:27 O2 Sat by Pulse Oximetry (%) Laboratory Tests 09/13/18 09/14/18 09/14/18 11:20 07:00 07:00 WBC 3.9 L RBC 3.39 L Hgb 11.9 Hct 33.0 MCV 97.2 H MCH 35.0 H MCHC 36.0 RDW 14.0 Plt Count 395 D MPV 7.3 L Sodium 142 Potassium 3.8 Chloride 105 Carbon Dioxide 28 Anion Gap 8 BUN 13 Creatinine 0.9 Creat Clearance w eGFR > 60 Random Glucose 136 H Calcium 8.3 L Total Bilirubin 0.2 AST 13 L ALT 16 Alkaline Phosphatase 86 Total Protein 6.0 L Albumin 2.8 L Urine Color Ltyellow Urine Appearance Slcloudy Urine pH 6.0 Ur Specific [place] 1.013 Urine Protein Negative Urine Glucose (UA) Negative Urine Ketones Negative Urine Blood 1+ H Urine Nitrite Negative Urine Bilirubin Negative Urine Urobilinogen Negative Ur Leukocyte Esterase 3+ H Urine WBC (Auto) 64 Urine RBC (Auto) 4 Ur Epithelial Cells Rare RPR Titer HIV 1&2 Antibody Screen HIV P24 Antigen 09/14/18 09/14/18 07:00 10:00 WBC RBC Hgb Hct MCV MCH MCHC RDW Plt Count MPV Sodium Potassium Chloride Carbon Dioxide Anion Gap BUN Creatinine Creat Clearance w eGFR Random Glucose Calcium Total Bilirubin AST ALT Alkaline Phosphatase Total Protein Albumin Urine Color Urine Appearance Urine pH Ur Specific [place] Urine Protein Urine Glucose (UA) Urine Ketones Urine Blood Urine Nitrite Urine Bilirubin Urine Urobilinogen Ur Leukocyte Esterase Urine WBC (Auto) Urine RBC (Auto) Ur Epithelial Cells RPR Titer Nonreactive HIV 1&2 Antibody Screen Negative HIV P24 Antigen Negative PE: ALERT AND ORIENTED X 3 SKIN WARM AND DRY EXT FULL ROM, AMB AD SCAR IRRITABLE TOWARDS STAFF-REFUSED AM MEDS THEN LATER REQUESTED TO BE MEDICATED BY YELLING AT RN. Objective: 09/15/18 12:08 PE: ALERT AND ORIENTED X 3 SKIN WARM AND DRY EXT FULL ROM, AMB AD SCAR IRRITABLE TOWARDS STAFF-REFUSED AM MEDS THEN LATER REQUESTED TO BE MEDICATED BY YELLING AT RN. Vital Signs Temperature 96.6 F L 09/15/18 09:27 Pulse Rate 102 H 09/15/18 09:27 Respiratory Rate 18 09/15/18 09:27 Blood Pressure 106/70 09/15/18 09:27 O2 Sat by Pulse Oximetry (%) Laboratory Tests 09/13/18 09/14/18 09/14/18 11:20 07:00 07:00 WBC 3.9 L RBC 3.39 L Hgb 11.9 Hct 33.0 MCV 97.2 H MCH 35.0 H MCHC 36.0 RDW 14.0 Plt Count 395 D MPV 7.3 L Sodium 142 Potassium 3.8 Chloride 105 Carbon Dioxide 28 Anion Gap 8 BUN 13 Creatinine 0.9 Creat Clearance w eGFR > 60 Random Glucose 136 H Calcium 8.3 L Total Bilirubin 0.2 AST 13 L ALT 16 Alkaline Phosphatase 86 Total Protein 6.0 L Albumin 2.8 L Urine Color Ltyellow Urine Appearance Slcloudy Urine pH 6.0 Ur Specific [place] 1.013 Urine Protein Negative Urine Glucose (UA) Negative Urine Ketones Negative Urine Blood 1+ H Urine Nitrite Negative Urine Bilirubin Negative Urine Urobilinogen Negative Ur Leukocyte Esterase 3+ H Urine WBC (Auto) 64 Urine RBC (Auto) 4 Ur Epithelial Cells Rare RPR Titer HIV 1&2 Antibody Screen HIV P24 Antigen 09/14/18 09/14/18 07:00 10:00 WBC RBC Hgb Hct MCV MCH MCHC RDW Plt Count MPV Sodium Potassium Chloride Carbon Dioxide Anion Gap BUN Creatinine Creat Clearance w eGFR Random Glucose Calcium Total Bilirubin AST ALT Alkaline Phosphatase Total Protein Albumin Urine Color Urine Appearance Urine pH Ur Specific [place] Urine Protein Urine Glucose (UA) Urine Ketones Urine Blood Urine Nitrite Urine Bilirubin Urine Urobilinogen Ur Leukocyte Esterase Urine WBC (Auto) Urine RBC (Auto) Ur Epithelial Cells RPR Titer Nonreactive HIV 1&2 Antibody Screen Negative HIV P24 Antigen Negative Assessment: 09/15/18 12:09 WITHDRAWAL SX Plan: CONTINUE DETOX ENCOURAGE ORAL FLUIDS ONE TIME ORDER FOR MORNING MEDICATION ENTERED CONTINUE TO MONITOR CLINICALLY
--- NOTE | 2018-09-15 14:37 | CONSULT ---
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 This is one of multiple admissions for patient. Patient admitted to for alcohol and cocaine dependence. Substance Abuse History: - Smoking Cessation. Smoking history: Current some day smoker. Have you smoked in the past 12 months: Yes. Aproximately how many cigarettes per day: 20. Cigars Per Day: 0. Hx Chewing Tobacco Use: No. Initiated information on smoking cessation: Yes. 'Breaking Loose' booklet given : 09/13/18. - Substance & Tx. History. Hx Alcohol Use: Yes. Hx Substance Use : No. Substance Use Type: Alcohol, Cocaine. Hx Substance Use Treatment: Yes ( [facility] 08/05/18 to 08/07/18 not completed). - Substances Abused. Alcohol. Route: Oral. Frequency: Daily. Amount used: 1 pint of aracelis/6 packs of 24 ozs of beer. Age of first use: 10. Date of Last Use: 09/12/18. Cocaine. Route: Smoking. Frequency: Daily. Amount used: 100$. Age of first use: 28. Date of Last Use: 09/12/18 Medical History: Anemia, asthma, GERD, hypertension Psychiatric History: Patient denies h/o psychiatric hospitalizations and suicide attempt. States she receives outpatient psychiatric care from [facility] and is prescribed seroquel 300mg qhs. She reports sub-optimal adherence. Most recent prescripition of seroquel 300mg #30 tablets was sent to patient's pharmacy on 07/09/18. She reports a diagnosis of schizophrenia/ bipolar disorder. Patient is asymptomatic. At present, patient appears fatigue but reports ok mood. Physical/Sexual Abuse/Trauma History: Denies. Mental Status Exam - Mental Status Exam Alert and Oriented to: Time, Place, Person Cognitive Function: Good Patient Appearance: Well Groomed Mood: Withdrawn Affect: Mood Congruent Patient Behavior: Fatigued Speech Pattern: Appropriate Voice Loudness: Moderately Soft/Quiet Thought Process: Intact, Goal Oriented Thought Disorder: Not Present Hallucinations: Denies Suicidal Ideation: Denies Homicidal Ideation: Denies Insight/Judgement: Poor Sleep: Poorly Appetite: Fair Muscle strength/Tone: Normal Gait/Station: Normal Psychiatric Findings - Problem List ([place] 1, 2,3) (1) Alcohol dependence with uncomplicated withdrawal Current Visit: Yes Status: Acute (2) Cocaine dependence Current Visit: Yes Status: Chronic Qualifiers: Substance use status: uncomplicated Qualified Code(s): F14.20 - Cocaine dependence, uncomplicated (3) Substance-induced sleep disorder Current Visit: Yes Status: Acute (4) Schizoaffective disorder Current Visit: Yes Status: Suspected Qualifiers: Comment: As per history.No adherence to OPD care. - Initial Treatment Plan Initial Treatment Plan: Psychoeducation provided. Detoxification in progress. Will order Seroquel 25mg qhs (Patient's request). Benefits and side effects discussed. Verbal consent given.
[2018-09-15 15:20] LABS: URINE APPEARANCE CLEAR; URINE BILIRUBIN NEGATIVE (<2.0 mg/dL); URINE COLOR LTYELLOW; URINE GLUCOSE (UA) NEGATIVE (NEGATIVE); URINE KETONE NEGATIVE (NEGATIVE); URINE LEUK ESTERASE 3+ (NEGATIVE); URINE NITRITE NEGATIVE (NEGATIVE); URINE PROTEIN NEGATIVE (NEGATIVE); URINE UROBILINOGEN NEGATIVE mg/dL (0.2-1.0)
[2018-09-15 15:58] LABS: EPI CELLS RARE /HPF (FEW); URINE MUCUS RARE
[2018-09-15] MEDS: THIAMINE HCL 100 MG TABLET (FP) PO SCH (22:00)
[2018-09-15] MEDS: P-EPHED 60MG/TRIPROLIDI 2.5MG TABLET PO PRN (22:02)
[2018-09-15] MEDS: QUEtiapine FUMARATE 25 MG TABLET (FP) PO SCH (22:03)
[2018-09-15] MEDS: LIDOCAINE PATCH REMOVAL MC SCH (22:04)
[2018-09-15] MEDS: MONTELUKAST NA 10 MG TABLET PO SCH (22:04)
[2018-09-15] MEDS: chlordiazePOXIDE 5 MG CAPSULE PO SCH (22:04)
[2018-09-15] MEDS: MELATONIN 5 MG TABLETS PO PRN (22:07)
[2018-09-16] MEDS: chlordiazePOXIDE 5 MG CAPSULE PO SCH ×3 (05:42→18:29)
[2018-09-16] MEDS: CYCLOBENZAPRINE HCL 5 MG TABLET PO PRN ×2 (05:42→21:29)
--- NOTE | 2018-09-16 08:51 | PN ---
[facility] Progress Note (SOAP) Subjective: feeling better today less tremor little sweating mild gi distress Objective: 09/16/18 15:32 Vital Signs Temperature 96.8 F L 09/16/18 13:18 Pulse Rate 115 H 09/16/18 13:18 Respiratory Rate 18 09/16/18 13:18 Blood Pressure 109/78 09/16/18 13:18 O2 Sat by Pulse Oximetry (%) Laboratory Last Values WBC 3.9 K/mm3 (4.0-10.0) L 09/14/18 07:00 RBC 3.39 M/mm3 (3.60-5.2) L 09/14/18 07:00 Hgb 11.9 GM/dL (10.7-15.3) 09/14/18 07:00 Hct 33.0 % (32.4-45.2) 09/14/18 07:00 MCV 97.2 fl (80-96) H 09/14/18 07:00 MCH 35.0 pg (25.7-33.7) H 09/14/18 07:00 MCHC 36.0 g/dl (32.0-36.0) 09/14/18 07:00 RDW 14.0 % (11.6-15.6) 09/14/18 07:00 Plt Count 395 K/MM3 (134-434) D 09/14/18 07:00 MPV 7.3 fl (7.5-11.1) L 09/14/18 07:00 Sodium 142 mmol/L (136-145) 09/14/18 07:00 Potassium 3.8 mmol/L (3.5-5.1) 09/14/18 07:00 Chloride 105 mmol/L (98-107) 09/14/18 07:00 Carbon Dioxide 28 mmol/L (21-32) 09/14/18 07:00 Anion Gap 8 MMOL/L (8-16) 09/14/18 07:00 BUN 13 mg/dL (7-18) 09/14/18 07:00 Creatinine 0.9 mg/dL (0.55-1.3) 09/14/18 07:00 Creat Clearance w eGFR > 60 (>60) 09/14/18 07:00 Random Glucose 136 mg/dL (74-106) H 09/14/18 07:00 Calcium 8.3 mg/dL (8.5-10.1) L 09/14/18 07:00 Total Bilirubin 0.2 mg/dL (0.2-1) 09/14/18 07:00 AST 13 U/L (15-37) L 09/14/18 07:00 ALT 16 U/L (13-61) 09/14/18 07:00 Alkaline Phosphatase 86 U/L (45-117) 09/14/18 07:00 Total Protein 6.0 g/dl (6.4-8.2) L 09/14/18 07:00 Albumin 2.8 g/dl (3.4-5.0) L 09/14/18 07:00 Urine Color Ltyellow 09/15/18 10:55 Urine Appearance Clear 09/15/18 10:55 Urine pH 7.0 (5.0-8.0) 09/15/18 10:55 Ur Specific [place] 1.012 (1.010-1.035) 09/15/18 10:55 Urine Protein Negative (NEGATIVE) 09/15/18 10:55 Urine Glucose (UA) Negative (NEGATIVE) 09/15/18 10:55 Urine Ketones Negative (NEGATIVE) 09/15/18 10:55 Urine Blood 2+ (NEGATIVE) H 09/15/18 10:55 Urine Nitrite Negative (NEGATIVE) 09/15/18 10:55 Urine Bilirubin Negative (<2.0 mg/dL) 09/15/18 10:55 Urine Urobilinogen Negative mg/dL (0.2-1.0) 09/15/18 10:55 Ur Leukocyte Esterase 3+ (NEGATIVE) H 09/15/18 10:55 Urine WBC (Auto) 16 /hpf (3-5) 09/15/18 10:55 Urine RBC (Auto) 25 /hpf (0-3) 09/15/18 10:55 Ur Epithelial Cells Rare /HPF (FEW) 09/15/18 10:55 Urine Mucus Rare 09/15/18 10:55 RPR Titer Nonreactive (NONREACTIVE) 09/14/18 07:00 HIV 1&2 Antibody Screen Negative 09/14/18 10:00 HIV P24 Antigen Negative 09/14/18 10:00 lab noted Assessment: 09/16/18 15:33 mild withdrawal sx Plan: continue detox
[2018-09-16] MEDS: HYDROCHLOROTHIAZIDE 12.5 MG CAPSULE (FP) PO SCH (10:58)
[2018-09-16] MEDS: PRENATAL VITAMINS W/ FOLIC ACID TABLET (FP) PO SCH (10:58)
[2018-09-16] MEDS: amLODIPine BESYLATE 5 MG TABLET (FP) PO SCH (10:58)
[2018-09-16] MEDS: BUDESONIDE/FORMETEROL FUMARATE 160/4.5 mcg INHALER IH SCH ×2 (10:59→21:30)
[2018-09-16] MEDS: PANTOPRAZOLE 20 MG TABLET (FP) PO SCH (10:59)
[2018-09-16] MEDS: ASPIRIN 81 MG CHEWABLE TABLETS PO SCH (10:59)
[2018-09-16] MEDS: NICOTINE 21 MG/24 HOURS TOPICAL PATCH TD SCH (11:01)
[2018-09-16] MEDS: LIDOCAINE 5% TOPICAL PATCH TP SCH (11:01)
[2018-09-16] MEDS: VITAMINS A AND D TOPICAL OINTMENT 60 GM TUBE TP SCH ×4 (11:01→22:19)
[2018-09-16] MEDS: METHYL SALICYLATE/MENTHOL OINT 30 GM TUBE TP SCH ×2 (11:01→22:19)
[2018-09-16] MEDS: QUEtiapine FUMARATE 25 MG TABLET (FP) PO SCH (21:29)
[2018-09-16] MEDS: THIAMINE HCL 100 MG TABLET (FP) PO SCH (21:29)
[2018-09-16] MEDS: MONTELUKAST NA 10 MG TABLET PO SCH (21:29)
[2018-09-16] MEDS: MELATONIN 5 MG TABLETS PO PRN (21:31)
[2018-09-16] MEDS: chlordiazePOXIDE HCL 10 MG CAPSULE PO SCH (22:19)
[2018-09-16] MEDS: LIDOCAINE PATCH REMOVAL MC SCH (22:19)
[2018-09-17] MEDS: chlordiazePOXIDE HCL 10 MG CAPSULE PO SCH (05:49)
[2018-09-17 09:56] VITALS: BP 117/82; PULSE 120; TEMP 96.1
[2018-09-17] MEDS: ASPIRIN 81 MG CHEWABLE TABLETS PO SCH (10:01)
[2018-09-17] MEDS: amLODIPine BESYLATE 5 MG TABLET (FP) PO SCH (10:01)
[2018-09-17] MEDS: BUDESONIDE/FORMETEROL FUMARATE 160/4.5 mcg INHALER IH SCH (10:01)
[2018-09-17] MEDS: PRENATAL VITAMINS W/ FOLIC ACID TABLET (FP) PO SCH (10:01)
[2018-09-17] MEDS: HYDROCHLOROTHIAZIDE 12.5 MG CAPSULE (FP) PO SCH (10:01)
--- NOTE | 2018-09-17 11:19 | DS ---
[facility] Detox Discharge Summary Admission Date: 09/13/18 Discharge Date: 09/17/18 - History Present History: Alcohol Dependence Additional Comments: 58 years old female admitted on 09/13/18 for alcohol withdrawal stabilization completed alcohol detox regimen tolerated well alert no acute distress aftercare [facility] - Physical Exam Results Vital Signs: Vital Signs Temperature 96.1 F L 09/17/18 09:55 Pulse Rate 120 H 09/17/18 09:55 Respiratory Rate 18 09/17/18 09:55 Blood Pressure 117/82 09/17/18 09:55 O2 Sat by Pulse Oximetry (%) Pertinent Admission Physical Exam Findings: alcohol withdrawal sx Laboratory Last Values WBC 3.9 K/mm3 (4.0-10.0) L 09/14/18 07:00 RBC 3.39 M/mm3 (3.60-5.2) L 09/14/18 07:00 Hgb 11.9 GM/dL (10.7-15.3) 09/14/18 07:00 Hct 33.0 % (32.4-45.2) 09/14/18 07:00 MCV 97.2 fl (80-96) H 09/14/18 07:00 MCH 35.0 pg (25.7-33.7) H 09/14/18 07:00 MCHC 36.0 g/dl (32.0-36.0) 09/14/18 07:00 RDW 14.0 % (11.6-15.6) 09/14/18 07:00 Plt Count 395 K/MM3 (134-434) D 09/14/18 07:00 MPV 7.3 fl (7.5-11.1) L 09/14/18 07:00 Sodium 142 mmol/L (136-145) 09/14/18 07:00 Potassium 3.8 mmol/L (3.5-5.1) 09/14/18 07:00 Chloride 105 mmol/L (98-107) 09/14/18 07:00 Carbon Dioxide 28 mmol/L (21-32) 09/14/18 07:00 Anion Gap 8 MMOL/L (8-16) 09/14/18 07:00 BUN 13 mg/dL (7-18) 09/14/18 07:00 Creatinine 0.9 mg/dL (0.55-1.3) 09/14/18 07:00 Creat Clearance w eGFR > 60 (>60) 09/14/18 07:00 Random Glucose 136 mg/dL (74-106) H 09/14/18 07:00 Calcium 8.3 mg/dL (8.5-10.1) L 09/14/18 07:00 Total Bilirubin 0.2 mg/dL (0.2-1) 09/14/18 07:00 AST 13 U/L (15-37) L 09/14/18 07:00 ALT 16 U/L (13-61) 09/14/18 07:00 Alkaline Phosphatase 86 U/L (45-117) 09/14/18 07:00 Total Protein 6.0 g/dl (6.4-8.2) L 09/14/18 07:00 Albumin 2.8 g/dl (3.4-5.0) L 09/14/18 07:00 Urine Color Ltyellow 09/15/18 10:55 Urine Appearance Clear 09/15/18 10:55 Urine pH 7.0 (5.0-8.0) 09/15/18 10:55 Ur Specific [place] 1.012 (1.010-1.035) 09/15/18 10:55 Urine Protein Negative (NEGATIVE) 09/15/18 10:55 Urine Glucose (UA) Negative (NEGATIVE) 09/15/18 10:55 Urine Ketones Negative (NEGATIVE) 09/15/18 10:55 Urine Blood 2+ (NEGATIVE) H 09/15/18 10:55 Urine Nitrite Negative (NEGATIVE) 09/15/18 10:55 Urine Bilirubin Negative (<2.0 mg/dL) 09/15/18 10:55 Urine Urobilinogen Negative mg/dL (0.2-1.0) 09/15/18 10:55 Ur Leukocyte Esterase 3+ (NEGATIVE) H 09/15/18 10:55 Urine WBC (Auto) 16 /hpf (3-5) 09/15/18 10:55 Urine RBC (Auto) 25 /hpf (0-3) 09/15/18 10:55 Ur Epithelial Cells Rare /HPF (FEW) 09/15/18 10:55 Urine Mucus Rare 09/15/18 10:55 RPR Titer Nonreactive (NONREACTIVE) 09/14/18 07:00 HIV 1&2 Antibody Screen Negative 09/14/18 10:00 HIV P24 Antigen Negative 09/14/18 10:00 lab noted - Treatment Hospital Course: Detox Protocol Followed, Detoxed Safely, Responded well, Discharged Condition Good, Rehab Referral Accepted Patient has Accepted a Rehab Referral to: [facility] / [facility] - Medication Discharge Medications: Ambulatory Orders Aspirin [ASA -] 81 mg PO DAILY #30 mg 10/08/17 Fluticasone/Salmeterol [Advair 250-50 Diskus] 1 each IH BID #1 disk.w.dev Pantoprazole Sodium [Protonix -] 20 mg PO DAILY #14 tablet.ec 02/22/18 Cyclobenzaprine HCl [Flexeril -] 10 mg PO TID PRN tablet 05/01/18 Tolnaftate 1% Cream [Tinactin 1% Cream -] 1 applic TP BID cream..g. 05/01/18 Amox-Tr/K Cl [Augmentin 500-125mg Tablet -] 500 mg PO BID 07/03/18 Levofloxacin [Levaquin] 750 mg PO DAILY 09/13/18 Albuterol Sulfate Inhaler - [Ventolin HFA Inhaler -] 2 puff IH Q4H PRN #1 inhaler 09/16/18 Amlodipine Besylate [Norvasc -] 5 mg PO DAILY #14 tablet 09/16/18 Budesonide/Formeterol Fumarate [SYMBICORT 160/4.5mcg -] 2 puff IH BID #1 inhaler 09/16/18 Hydrochlorothiazide [Hctz -] 12.5 mg PO DAILY #14 cap 09/16/18 Montelukast Na [Singulair -] 10 mg PO HS #14 tablet 09/16/18 levoFLOXacin [Levaquin -] 750 mg PO DAILY #7 tablet 09/16/18 - Diagnosis (1) Alcohol dependence with uncomplicated withdrawal Current Visit: Yes Status: Acute (2) Asthma Current Visit: Yes Status: Chronic Qualifiers: Asthma severity: unspecified severity Asthma persistence: unspecified Asthma complication type: unspecified Qualified Code(s): J45.909 - Unspecified asthma, uncomplicated (3) GERD (gastroesophageal reflux disease) Current Visit: Yes Status: Chronic Qualifiers: Esophagitis presence: esophagitis presence not specified Qualified Code(s) : K21.9 - Gastro-esophageal reflux disease without esophagitis (4) Hypertension Current Visit: Yes Status: Chronic Qualifiers: Hypertension type: unspecified Qualified Code(s): I10 - Essential (primary ) hypertension (5) Nicotine dependence Current Visit: Yes Status: Acute Qualifiers: Nicotine product type: cigarettes Substance use status: in withdrawal Qualified Code(s): F17.213 - Nicotine dependence, cigarettes, with withdrawal (6) COPD (chronic obstructive pulmonary disease) Current Visit: Yes Status: Chronic Qualifiers: COPD type: emphysema Emphysema type: other Qualified Code(s): J43.8 - Other emphysema (7) Poor dentition Current Visit: Yes Status: Chronic (8) Poor oral hygiene Current Visit: Yes Status: Chronic - AMA Did Patient Leave Against Medical Advice: No
== END 2018-09-17 10:47 | disposition home or self-care (01) | DRG 774 ==
LOC: YASAS 12:44 → Y6N 17:19 → Y3N 09-15 17:44
PROC: HZ2ZZZZ Detoxification Services for Substance Abuse Treatment (ICD-10-PCS; principal; 2018-09-13)
DX: F10.230 Alcohol dependence with withdrawal, uncomplicated (principal); F14.20 Cocaine dependence, uncomplicated; F17.213 Nicotine dependence, cigarettes, with withdrawal; F19.282 Other psychoactive substance dependence with psychoactive substance-induced sleep disorder; F25.9 Schizoaffective disorder, unspecified; I10 Essential (primary) hypertension; J45.909 Unspecified asthma, uncomplicated; K21.9 Gastro-esophageal reflux disease without esophagitis; R46.0 Very low level of personal hygiene; N39.0 Urinary tract infection, site not specified; D64.9 Anemia, unspecified; K08.9 Disorder of teeth and supporting structures, unspecified
CPT/HCPCS: 36415; 80053; 81003; 81015; 85027; 86593; 87389

== ENCOUNTER 2018-10-25 12:21 | Inpatient (IN) | payer OTHER ==
[2018-10-25 12:46] VITALS: BMI 30.9
--- NOTE | 2018-10-25 13:02 | HP ---
CIWA Score Nausea/Vomitin Muscle Tremors: 2 Anxiety: 2 Agitation: 2 Paroxysmal Sweats: 1-Minimal Palms Moist Orientation: 0-Oriented Tacttile Disturbances: 1-Very Mild Itch/Numbness Auditory Disturbances: 1-Very Mild Visual Disturbances: 0-None Headache: 2-Mild CIWA-Ar Total Score: 13 - Admission Criteria OASAS Guidelines: Admission for Medically Managed Detox: Requires at least one of the followin. CIWA greater than 12 2. Seizures within the past 24 hours 3. Delirium tremens within the past 24 hours 4. Hallucinations within the past 24 hours 5. Acute intervention needed for co occurring medical disorder 6. Acute intervention needed for co occurring psychiatric disorder 7. Severe withdrawal that cannot be handled at a lower level of care (continued vomiting, continued diarrhea, abnormal vital signs) requiring intravenous medication and/or fluids 8. Patient presents the following: CIWA greater than 12 Admission Criteria Met: Admission criteria met Admission ROS BHS - HPI Chief Complaint: i need help to stop drinking alcohol and crack Allergies/Adverse Reactions: Allergies Allergy/AdvReac Type Severity Reaction Status Date / Time mushroom Allergy Severe Rash Verified 10/25/18 13:33 No Known Drug Allergies Allergy Verified 10/25/18 13:33 salmon Allergy Severe Difficulty Uncoded 10/25/18 13:33 Breathing History of Present Illness: this 58 years old female with alcohol and crack,seeking detox,withdrawal symptom ,last detox 09/13/18 to 09/17/18 hypertension, multiple admissions in detox but keep relapsing nicotine dependence schizophrenia bipolar disorder asthma longest period of sobriety 2 and half years plan for rehab Exam Limitations: No Limitations - Ebola screening Have you been sick,other than usual withdrawal symptoms: No - Review of Systems Constitutional: Loss of Appetite, Malaise, Night Sweats, Changes in sleep, Weakness EENT: reports: Tearing, Nose Congestion Respiratory: reports: No Symptoms reported, Other (asthma) Cardiac: reports: No Symptoms Reported GI: reports: Nausea, Abdominal cramping : reports: No Symptoms Reported Musculoskeletal: reports: Back Pain, Muscle Pain Integumentary: reports: Dryness Neuro: reports: Headache, Tremors Endocrine: reports: No Symptoms Reported Hematology: reports: No Symptoms Reported Psychiatric: reports: No Sypmtoms Reported, Judgement Intact, Mood/Affect Appropiate, Orientated x3, other (bipolar disorder,schizophrenia) Other Systems: Reviewed and Negative Patient History - Patient Medical History Hx Anemia: Yes (Ferrous sulfate, Vitamins) Hx Asthma: Yes (on albuterol inhaler) Hx Chronic Obstructive Pulmonary Disease (COPD): No Hx Cancer: No Hx Cardiac Disorders: No Hx Congestive Heart Failure: No Hx Hypertension: Yes (on med) Hx Hypercholesterolemia: No Hx Pacemaker: No HX Cerebrovascular Accident: No Hx Seizures: No Hx Dementia: No Hx Diabetes: No Hx Gastrointestinal Disorders: Yes (GERD) Hx Liver Disease: No Hx Genitourinary Disorders: No Hx Sexually Transmitted Disorders: No Hx Renal Disease (ESRD): No Hx Thyroid Disease: No Hx Human Immunodeficiency Virus (HIV): No (last 2017 negative) Hx Hepatitis C: No Hx Depression: Yes Hx Suicide Attempt: No Hx Bipolar Disorder: Yes Hx Schizophrenia: Yes Other Medical History: no suicidal,no homicidal - Patient Surgical History Past Surgical History: Yes Hx Neurologic Surgery: No Hx Cataract Extraction: No Hx Cardiac Surgery: No Hx Lung Surgery: No Hx Breast Surgery: No Hx Breast Biopsy: No Hx Abdominal Surgery: No Hx Appendectomy: No Hx Cholecystectomy: No Hx Genitourinary Surgery: No Hx Section: Yes (x2) Hx Orthopedic Surgery: Yes (right ankle fx at age 18) Hx Hysterectomy: No Anesthesia Reaction: No - PPD History Previous Implant?: Yes Documented Results: Positive w/proof Implanted On Prior [facility] Admission?: No Results: cxr(-)11/10/17 PPD to be Administered?: No - Reproductive History Patient is a Female of Child Bearing Age (11 -55 yrs old): No Last Menstrual Period: 05/08/90 Patient : No - Smoking Cessation Smoking history: Current some day smoker Have you smoked in the past 12 months: Yes Aproximately how many cigarettes per day: 20 Cigars Per Day: 0 Hx Chewing Tobacco Use: No Initiated information on smoking cessation: Yes 'Breaking Loose' booklet given: 10/25/18 - Substance & Tx. History Hx Alcohol Use: Yes Hx Substance Use: Yes Substance Use Type: Alcohol, Cocaine Hx Substance Use Treatment: Yes ([facility] 09/13/18 to 09/17/18) - Substances Abused Alcohol Route: Oral Frequency: Daily Amount used: 2 pints of6 packs o aracelis/6 packs of 24 ozs of beer Age of first use: 10 Date of Last Use: 10/24/18 Crack Route: Smoking Frequency: Daily Amount used: 100$ Age of first use: 28 Date of Last Use: 10/24/18 Family Disease History - Family Disease History Family Disease History: Diabetes: Sister, Heart Disease: Father (), Mother (COPD- ), Other: Mother, Brother (only child) Admission Physical Exam S - Vital Signs Vital Signs: Vital Signs - 24 hr 10/25/18 12:40 Temperature 96.3 F L Pulse Rate 86 Respiratory 18 Rate Blood Pressure 148/95 - Physical General Appearance: Yes: Moderate Distress, Tremorous, Irritable, Sweating, Anxious HEENTM: Yes: Normal ENT Inspection, COLIN, Pharynx Normal, Other (infecte gum , tooth 1 week ago) Respiratory: Yes: Lungs Clear, Normal Breath Sounds, No Respiratory Distress Neck: Yes: Within Normal Limits, Supple, Trachea in good position Breast: Yes: Breast Exam Deferred Cardiology: Yes: Within Normal Limits, Regular Rhythm, Regular Rate, S1, S2 Abdominal: Yes: Within Normal Limits, Normal Bowel Sounds, Non Tender, Soft Genitourinary: Yes: Within Normal Limits Back: Yes: Within Normal Limits, Muscle Spasm Musculoskeletal: Yes: Back pain, Muscle Pain, Other Extremities: Yes: Normal Range of Motion, Tremors, Other Neurological: Yes: Alert, Motor Strength 5/5, Abnormal Cranial NS Integumentary: Yes: Dry Lymphatic: Yes: Within Normal Limits - Diagnostic (1) Alcohol dependence with uncomplicated withdrawal Current Visit: No Status: Acute (2) Bipolar disorder Current Visit: No Status: Acute Qualifiers: Active/Remission status: remission status unspecified Qualified Code(s): F31.9 - Bipolar disorder, unspecified (3) Nicotine dependence Current Visit: No Status: Acute Qualifiers: Nicotine product type: cigarettes Substance use status: in withdrawal Qualified Code(s): F17.213 - Nicotine dependence, cigarettes, with withdrawal (4) Arthritis Current Visit: No Status: Chronic (5) Asthma Current Visit: No Status: Chronic Qualifiers: Asthma severity: unspecified severity Asthma persistence: unspecified Asthma complication type: unspecified Qualified Code(s): J45.909 - Unspecified asthma, uncomplicated (6) Bipolar disorder Current Visit: No Status: Chronic (7) COPD (chronic obstructive pulmonary disease) Current Visit: No Status: Chronic Qualifiers: COPD type: emphysema Emphysema type: other Qualified Code(s): J43.8 - Other emphysema (8) GERD (gastroesophageal reflux disease) Current Visit: No Status: Chronic Qualifiers: Esophagitis presence: esophagitis presence not specified Qualified Code(s) : K21.9 - Gastro-esophageal reflux disease without esophagitis (9) Hypertension Current Visit: No Status: Chronic Qualifiers: Hypertension type: unspecified Qualified Code(s): I10 - Essential (primary ) hypertension (10) Poor dentition Current Visit: No Status: Chronic (11) Constipation Current Visit: Yes Status: Acute (12) Gingivitis Current Visit: Yes Status: Acute Cleared for Admission BHS - Detox or Rehab S Level of Care: Medically Managed Detox Regimen/Protocol: Librium BHS Breath Alcohol Content Breath Alcohol Content: 23 Urine Pregancy Test - Result Urine Test Results: Negative- NO Line Present Urine Drug Screen - Results Drug Screen Negative: No Urine Drug Screen Results: [facility]-Cocaine Inpatient Rehab Admission - Rehab Decision to Admit Inpatient rehab admission?: No
[2018-10-25] MEDS ORDERED: MAGNESIUM CITRATE 300 ML BOTTLE PO PRN (13:27)
[2018-10-25] MEDS ORDERED: P-EPHED 60MG/TRIPROLIDI 2.5MG TABLET PO PRN (13:27)
[2018-10-25] MEDS ORDERED: LOPERAMIDE HCL 2 MG CAPSULE PO PRN (13:27)
[2018-10-25] MEDS ORDERED: guaiFENesin/D-METHORPHAN HB 10 ML UNIT-DOSE CUPS PO PRN (13:27)
[2018-10-25] MEDS ORDERED: MENTHOL/PHENOL 1 EACH UD MM PRN (13:27)
[2018-10-25] MEDS ORDERED: chlordiazePOXIDE HCL 25 MG CAPSULE PO PRN (13:27)
[2018-10-25] MEDS ORDERED: MAG HYDROX/AL HYDROX/SIMETH 30 ML UNIT-DOSE CUP PO PRN (13:27)
[2018-10-25] MEDS ORDERED: NICOTINE POLACRILEX 4 MG GUM BUC PRN (13:27)
[2018-10-25] MEDS ORDERED: ACETAMINOPHEN 325 MG TABLET (FP) PO PRN (13:27)
[2018-10-25] MEDS ORDERED: hydrOXYzine PAMOATE 50 MG CAPSULE (FP) PO PRN (13:27)
[2018-10-25] MEDS ORDERED: MAGNESIUM HYDROX 2400MG/30ML ORAL SUSPENSION 30 ML CUP PO PRN (13:27)
[2018-10-25] MEDS ORDERED: ALBUTEROL SO4 8 GM HFA INHALER IH PRN (13:40)
[2018-10-25] MEDS: NICOTINE 21 MG/24 HOURS TOPICAL PATCH TD SCH (15:04)
[2018-10-25] MEDS: AMOX TR/POT CLAV 500MG/125MG TABLETS (FP) PO SCH (17:16)
[2018-10-25] MEDS: COLLOIDAL OATMEAL 1 BAR EACH TP PRN (17:22)
[2018-10-25] MEDS: chlordiazePOXIDE HCL 25 MG CAPSULE PO SCH ×2 (17:22→22:45)
[2018-10-25] MEDS: VITAMINS A AND D TOPICAL OINTMENT 60 GM TUBE TP SCH ×2 (18:01→23:03)
[2018-10-25] MEDS ORDERED: MELATONIN 5 MG TABLETS PO PRN (22:00)
[2018-10-25] MEDS: BUDESONIDE/FORMETEROL FUMARATE 160/4.5 mcg INHALER IH SCH (22:39)
[2018-10-25] MEDS: METHYL SALICYLATE/MENTHOL OINT 30 GM TUBE TP SCH (22:40)
[2018-10-25] MEDS: MONTELUKAST NA 10 MG TABLET PO SCH (22:41)
[2018-10-25] MEDS: THIAMINE HCL 100 MG TABLET (FP) PO SCH (22:41)
[2018-10-25] MEDS: TOLNAFTATE 1% CREAM 15 GM TUBE TP SCH (22:41)
[2018-10-25] MEDS: LIDOCAINE PATCH REMOVAL MC SCH (22:42)
[2018-10-26] MEDS: chlordiazePOXIDE HCL 25 MG CAPSULE PO SCH ×4 (06:00→22:23)
[2018-10-26] MEDS: VITAMINS A AND D TOPICAL OINTMENT 60 GM TUBE TP SCH ×3 (06:01→18:03)
[2018-10-26] MEDS: AMOX TR/POT CLAV 500MG/125MG TABLETS (FP) PO SCH ×2 (07:05→17:26)
[2018-10-26] MEDS: amLODIPine BESYLATE 5 MG TABLET (FP) PO SCH (10:30)
[2018-10-26] MEDS: PRENATAL VITAMINS W/ FOLIC ACID TABLET (FP) PO SCH (10:30)
[2018-10-26] MEDS: PANTOPRAZOLE 20 MG TABLET (FP) PO SCH (10:33)
[2018-10-26] MEDS: ASPIRIN 81 MG CHEWABLE TABLETS PO SCH (10:33)
[2018-10-26] MEDS: HYDROCHLOROTHIAZIDE 12.5 MG CAPSULE (FP) PO SCH (10:33)
[2018-10-26] MEDS: BUDESONIDE/FORMETEROL FUMARATE 160/4.5 mcg INHALER IH SCH ×2 (10:33→22:25)
[2018-10-26] MEDS: LIDOCAINE 5% TOPICAL PATCH TP SCH (10:33)
[2018-10-26] MEDS: NICOTINE 21 MG/24 HOURS TOPICAL PATCH TD SCH (10:33)
[2018-10-26] MEDS: TOLNAFTATE 1% CREAM 15 GM TUBE TP SCH ×2 (10:34→22:26)
[2018-10-26] MEDS: METHYL SALICYLATE/MENTHOL OINT 30 GM TUBE TP SCH ×2 (10:34→22:25)
--- NOTE | 2018-10-26 10:49 | PN ---
S CIWA - CIWA Score Nausea/Vomitin-Mild Nausea/No Vomiting Muscle Tremors: 3 Anxiety: 2 Agitation: 2 Paroxysmal Sweats: 1-Minimal Palms Moist Orientation: 1-Uncertain about Date Tacttile Disturbances: 0-None Auditory Disturbances: 0-None Visual Disturbances: 0-None Headache: 0-None Present CIWA-Ar Total Score: 10 BHS Progress Note (SOAP) Subjective: tremor low energy restlessness trouble sleep through the night Objective: 10/26/18 10:49 Vital Signs Temperature 97.5 F L 10/26/18 09:18 Pulse Rate 105 H 10/26/18 09:18 Respiratory Rate 18 10/26/18 09:18 Blood Pressure 125/83 10/26/18 09:18 O2 Sat by Pulse Oximetry (%) lab pending Assessment: 10/26/18 10:49 alcohol withdrawal sx Plan: continue detox
[2018-10-26 11:11] LABS: ALBUMIN 3.4 g/dl (3.4-5.0); ALK PHOS 84 U/L (45-117); ANION GAP 8 MMOL/L (8-16); BILIRUBIN,TOTAL 0.2 mg/dL (0.2-1); BLOOD UREA NITROGEN 23 mg/dL (7-18); CALCIUM 8.4 mg/dL (8.5-10.1); CHLORIDE 107 mmol/L (98-107); CO2 25 mmol/L (21-32); GLUCOSE,RANDOM 127 mg/dL (74-106); SGOT/AST 16 U/L (15-37); SGPT/ALT 23 U/L (13-61); SODIUM 140 mmol/L (136-145); TOT PROT 6.7 g/dl (6.4-8.2)
[2018-10-26 11:22] LABS: HEMATOCRIT 38.4 % (32.4-45.2); MCH 33.7 pg (25.7-33.7); MEAN CELL VOLUME 99.2 fl (80-96); MEAN PLT VOLUME 7.6 fl (7.5-11.1); PLATELET COUNT 309 K/MM3 (134-434); RBC 3.87 M/mm3 (3.60-5.2); RDW 15.4 % (11.6-15.6); WHITE BLOOD COUNT 4.3 K/mm3 (4.0-10.0)
[2018-10-26] MEDS: MONTELUKAST NA 10 MG TABLET PO SCH (22:23)
[2018-10-26] MEDS: LIDOCAINE PATCH REMOVAL MC SCH (22:25)
[2018-10-26] MEDS: THIAMINE HCL 100 MG TABLET (FP) PO SCH (22:26)
[2018-10-27] MEDS: VITAMINS A AND D TOPICAL OINTMENT 60 GM TUBE TP SCH ×5 (00:11→23:14)
[2018-10-27] MEDS: chlordiazePOXIDE HCL 25 MG CAPSULE PO SCH ×2 (06:50→10:31)
[2018-10-27] MEDS: AMOX TR/POT CLAV 500MG/125MG TABLETS (FP) PO SCH ×2 (07:39→17:14)
[2018-10-27] MEDS: IBUPROFEN 400 MG TABLET (FP) PO PRN ×2 (07:47→19:32)
--- NOTE | 2018-10-27 10:25 | CONSULT ---
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 This is one of multiple admissions for patient. Patient admitted to for alcohol and cocaine dependence. Substance Abuse History: Smoking Cessation. Smoking history: Current some day smoker. Have you smoked in the past 12 months: Yes. Aproximately how many cigarettes per day: 20. Cigars Per Day: 0. Hx Chewing Tobacco Use: No. Initiated information on smoking cessation: Yes. 'Breaking Loose' booklet given : 10/25/18. - Substance & Tx. History. Hx Alcohol Use: Yes. Hx Substance Use : Yes. Substance Use Type: Alcohol, Cocaine. Hx Substance Use Treatment: Yes ( [facility] 09/13/18 to 09/17/18). - Substances Abused. Alcohol. Route: Oral. Frequency: Daily. Amount used: 2 pints of6 packs o aracelis/6 packs of 24 ozs of beer. Age of first use: 10. Date of Last Use: 10/24/18. Crack. Route: Smoking. Frequency: Daily. Amount used: 100$. Age of first use: 28. Date of Last Use: 10/24/18 Medical History: Anemia, asthma, GERD, hypertension Psychiatric History: Patient denies h/o psychiatric hospitalization and suicide attempt. States she is currently seeing a mental health provider in the [place] and is prescribed seroquel 300mg HS. No prescriptions of seroquel noted on pharmacy claims. During her previous admission to detox she reported seeing a psychiatrist at the [facility]. Ms. Domínguez reports a past history of schizoaffective disorder. No psychosis noted. Physical/Sexual Abuse/Trauma History: denies. Mental Status Exam - Mental Status Exam Alert and Oriented to: Time, Place, Person Cognitive Function: Good Patient Appearance: Disheveled Mood: Withdrawn Affect: Mood Congruent Patient Behavior: Fatigued Speech Pattern: Appropriate Voice Loudness: Moderately Soft/Quiet Thought Process: Intact, Goal Oriented Thought Disorder: Not Present Hallucinations: Denies Suicidal Ideation: Denies Homicidal Ideation: Denies Insight/Judgement: Poor Sleep: Fair Appetite: Fair Muscle strength/Tone: Normal Gait/Station: Normal Psychiatric Findings - Problem List ([place] 1, 2,3) (1) Alcohol dependence with uncomplicated withdrawal Current Visit: Yes Status: Acute (2) Cocaine dependence Current Visit: Yes Status: Chronic Qualifiers: Substance use status: uncomplicated Qualified Code(s): F14.20 - Cocaine dependence, uncomplicated (3) Substance induced mood disorder Current Visit: Yes Status: Acute (4) Schizoaffective disorder Current Visit: Yes Status: Suspected Qualifiers: Comment: As per history.No adherence to OPD care. (5) Nicotine dependence Current Visit: No Status: Acute Qualifiers: Nicotine product type: cigarettes Substance use status: in withdrawal Qualified Code(s): F17.213 - Nicotine dependence, cigarettes, with withdrawal - Initial Treatment Plan Initial Treatment Plan: Psychoeducation provided. Detoxification in progress. Will order Seroquel 100mg HS. Benefits and side effects discussed. Verbal consent given.
[2018-10-27] MEDS: PRENATAL VITAMINS W/ FOLIC ACID TABLET (FP) PO SCH (10:29)
[2018-10-27] MEDS: amLODIPine BESYLATE 5 MG TABLET (FP) PO SCH (10:29)
[2018-10-27] MEDS: HYDROCHLOROTHIAZIDE 12.5 MG CAPSULE (FP) PO SCH (10:29)
[2018-10-27] MEDS: ASPIRIN 81 MG CHEWABLE TABLETS PO SCH (10:29)
[2018-10-27] MEDS: BUDESONIDE/FORMETEROL FUMARATE 160/4.5 mcg INHALER IH SCH ×2 (10:29→22:19)
[2018-10-27] MEDS: PANTOPRAZOLE 20 MG TABLET (FP) PO SCH (10:29)
[2018-10-27] MEDS: NICOTINE 21 MG/24 HOURS TOPICAL PATCH TD SCH (10:30)
[2018-10-27] MEDS: METHYL SALICYLATE/MENTHOL OINT 30 GM TUBE TP SCH ×2 (10:31→22:19)
[2018-10-27] MEDS: TOLNAFTATE 1% CREAM 15 GM TUBE TP SCH ×2 (10:31→22:19)
[2018-10-27] MEDS: LIDOCAINE 5% TOPICAL PATCH TP SCH (10:31)
--- NOTE | 2018-10-27 13:45 | PN ---
S CIWA - CIWA Score Nausea/Vomitin-No Nausea/No Vomiting Muscle Tremors: 2 Anxiety: 1-Mildly Anxious Agitation: 2 Paroxysmal Sweats: 1-Minimal Palms Moist Orientation: 0-Oriented Tacttile Disturbances: 0-None Auditory Disturbances: 0-None Visual Disturbances: 0-None Headache: 2-Mild CIWA-Ar Total Score: 8 S Progress Note (SOAP) Subjective: tremor sweating anxiety restlessness Objective: 10/27/18 13:44 Vital Signs Temperature 97.5 F L 10/27/18 13:30 Pulse Rate 95 H 10/27/18 13:30 Respiratory Rate 18 10/27/18 13:30 Blood Pressure 114/70 10/27/18 13:30 O2 Sat by Pulse Oximetry (%) Laboratory Last Values WBC 4.3 K/mm3 (4.0-10.0) 10/26/18 07:50 RBC 3.87 M/mm3 (3.60-5.2) 10/26/18 07:50 Hgb 13.0 GM/dL (10.7-15.3) 10/26/18 07:50 Hct 38.4 % (32.4-45.2) D 10/26/18 07:50 MCV 99.2 fl (80-96) H 10/26/18 07:50 MCH 33.7 pg (25.7-33.7) 10/26/18 07:50 MCHC 34.0 g/dl (32.0-36.0) 10/26/18 07:50 RDW 15.4 % (11.6-15.6) 10/26/18 07:50 Plt Count 309 K/MM3 (134-434) D 10/26/18 07:50 MPV 7.6 fl (7.5-11.1) 10/26/18 07:50 Sodium 140 mmol/L (136-145) 10/26/18 07:50 Potassium 4.0 mmol/L (3.5-5.1) 10/26/18 07:50 Chloride 107 mmol/L (98-107) 10/26/18 07:50 Carbon Dioxide 25 mmol/L (21-32) 10/26/18 07:50 Anion Gap 8 MMOL/L (8-16) 10/26/18 07:50 BUN 23 mg/dL (7-18) H 10/26/18 07:50 Creatinine 1.0 mg/dL (0.55-1.3) 10/26/18 07:50 Creat Clearance w eGFR 56.95 (>60) 10/26/18 07:50 Random Glucose 127 mg/dL (74-106) H 10/26/18 07:50 Calcium 8.4 mg/dL (8.5-10.1) L 10/26/18 07:50 Total Bilirubin 0.2 mg/dL (0.2-1) 10/26/18 07:50 AST 16 U/L (15-37) 10/26/18 07:50 ALT 23 U/L (13-61) 10/26/18 07:50 Alkaline Phosphatase 84 U/L (45-117) 10/26/18 07:50 Total Protein 6.7 g/dl (6.4-8.2) 10/26/18 07:50 Albumin 3.4 g/dl (3.4-5.0) 10/26/18 07:50 RPR Titer Nonreactive (NONREACTIVE) 10/26/18 07:50 lab noted Assessment: 10/27/18 13:44 withdrawal sx Plan: continue detox
[2018-10-27] MEDS: chlordiazePOXIDE 5 MG CAPSULE PO SCH ×2 (17:15→22:16)
[2018-10-27] MEDS: THIAMINE HCL 100 MG TABLET (FP) PO SCH (22:16)
[2018-10-27] MEDS: QUEtiapine FUMARATE 100 MG TABLET (FP) PO SCH (22:16)
[2018-10-27] MEDS: MONTELUKAST NA 10 MG TABLET PO SCH (22:16)
[2018-10-27] MEDS: LIDOCAINE PATCH REMOVAL MC SCH (22:19)
[2018-10-28] MEDS: VITAMINS A AND D TOPICAL OINTMENT 60 GM TUBE TP SCH ×4 (06:15→23:57)
[2018-10-28] MEDS: chlordiazePOXIDE 5 MG CAPSULE PO SCH ×2 (06:15→10:08)
--- NOTE | 2018-10-28 10:03 | PN ---
S CIWA - CIWA Score Nausea/Vomitin-No Nausea/No Vomiting Muscle Tremors: 1-None Visible, but [place] Anxiety: 1-Mildly Anxious Agitation: 1-Slight > Activity Paroxysmal Sweats: 1-Minimal Palms Moist Orientation: 1-Uncertain about Date Tacttile Disturbances: 0-None Auditory Disturbances: 0-None Visual Disturbances: 0-None Headache: 0-None Present CIWA-Ar Total Score: 5 BHS Progress Note (SOAP) Subjective: feeling better more energy ambulate on hallway mild tremor less sweating sleep better at night Objective: 10/28/18 10:08 Vital Signs Temperature 97.0 F L 10/28/18 06:43 Pulse Rate 107 H 10/28/18 09:14 Respiratory Rate 18 10/28/18 09:14 Blood Pressure 116/77 10/28/18 09:14 O2 Sat by Pulse Oximetry (%) Laboratory Last Values WBC 4.3 K/mm3 (4.0-10.0) 10/26/18 07:50 RBC 3.87 M/mm3 (3.60-5.2) 10/26/18 07:50 Hgb 13.0 GM/dL (10.7-15.3) 10/26/18 07:50 Hct 38.4 % (32.4-45.2) D 10/26/18 07:50 MCV 99.2 fl (80-96) H 10/26/18 07:50 MCH 33.7 pg (25.7-33.7) 10/26/18 07:50 MCHC 34.0 g/dl (32.0-36.0) 10/26/18 07:50 RDW 15.4 % (11.6-15.6) 10/26/18 07:50 Plt Count 309 K/MM3 (134-434) D 10/26/18 07:50 MPV 7.6 fl (7.5-11.1) 10/26/18 07:50 Sodium 140 mmol/L (136-145) 10/26/18 07:50 Potassium 4.0 mmol/L (3.5-5.1) 10/26/18 07:50 Chloride 107 mmol/L (98-107) 10/26/18 07:50 Carbon Dioxide 25 mmol/L (21-32) 10/26/18 07:50 Anion Gap 8 MMOL/L (8-16) 10/26/18 07:50 BUN 23 mg/dL (7-18) H 10/26/18 07:50 Creatinine 1.0 mg/dL (0.55-1.3) 10/26/18 07:50 Creat Clearance w eGFR 56.95 (>60) 10/26/18 07:50 Random Glucose 127 mg/dL (74-106) H 10/26/18 07:50 Calcium 8.4 mg/dL (8.5-10.1) L 10/26/18 07:50 Total Bilirubin 0.2 mg/dL (0.2-1) 10/26/18 07:50 AST 16 U/L (15-37) 10/26/18 07:50 ALT 23 U/L (13-61) 10/26/18 07:50 Alkaline Phosphatase 84 U/L (45-117) 10/26/18 07:50 Total Protein 6.7 g/dl (6.4-8.2) 10/26/18 07:50 Albumin 3.4 g/dl (3.4-5.0) 10/26/18 07:50 RPR Titer Nonreactive (NONREACTIVE) 10/26/18 07:50 lab noted Assessment: 10/28/18 10:09 mild alcohol withdrawal sx Plan: continue detox
[2018-10-28] MEDS: AMOX TR/POT CLAV 500MG/125MG TABLETS (FP) PO SCH ×2 (10:06→17:57)
[2018-10-28] MEDS: HYDROCHLOROTHIAZIDE 12.5 MG CAPSULE (FP) PO SCH (10:07)
[2018-10-28] MEDS: amLODIPine BESYLATE 5 MG TABLET (FP) PO SCH (10:07)
[2018-10-28] MEDS: PRENATAL VITAMINS W/ FOLIC ACID TABLET (FP) PO SCH (10:07)
[2018-10-28] MEDS: ASPIRIN 81 MG CHEWABLE TABLETS PO SCH (10:07)
[2018-10-28] MEDS: BUDESONIDE/FORMETEROL FUMARATE 160/4.5 mcg INHALER IH SCH ×2 (10:07→22:25)
[2018-10-28] MEDS: PANTOPRAZOLE 20 MG TABLET (FP) PO SCH (10:07)
[2018-10-28] MEDS: TOLNAFTATE 1% CREAM 15 GM TUBE TP SCH ×2 (10:08→22:25)
[2018-10-28] MEDS: METHYL SALICYLATE/MENTHOL OINT 30 GM TUBE TP SCH ×2 (10:08→22:24)
[2018-10-28] MEDS: NICOTINE 21 MG/24 HOURS TOPICAL PATCH TD SCH (10:08)
[2018-10-28] MEDS: LIDOCAINE 5% TOPICAL PATCH TP SCH (10:08)
[2018-10-28] MEDS: COLLOIDAL OATMEAL 1 BAR EACH TP PRN (17:59)
[2018-10-28] MEDS: IBUPROFEN 400 MG TABLET (FP) PO PRN (17:59)
[2018-10-28] MEDS: chlordiazePOXIDE HCL 10 MG CAPSULE PO SCH ×2 (18:00→22:25)
[2018-10-28] MEDS: MONTELUKAST NA 10 MG TABLET PO SCH (22:25)
[2018-10-28] MEDS: LIDOCAINE PATCH REMOVAL MC SCH (22:25)
[2018-10-28] MEDS: QUEtiapine FUMARATE 100 MG TABLET (FP) PO SCH (22:25)
[2018-10-28] MEDS: THIAMINE HCL 100 MG TABLET (FP) PO SCH (22:25)
[2018-10-29] MEDS: IBUPROFEN 400 MG TABLET (FP) PO PRN (02:28)
[2018-10-29] MEDS: chlordiazePOXIDE HCL 10 MG CAPSULE PO SCH (06:33)
[2018-10-29] MEDS: VITAMINS A AND D TOPICAL OINTMENT 60 GM TUBE TP SCH (06:33)
[2018-10-29] MEDS: AMOX TR/POT CLAV 500MG/125MG TABLETS (FP) PO SCH (07:27)
[2018-10-29 09:35] VITALS: BP 145/94; PULSE 90; TEMP 96.4
[2018-10-29] MEDS: amLODIPine BESYLATE 5 MG TABLET (FP) PO SCH (09:51)
[2018-10-29] MEDS: PRENATAL VITAMINS W/ FOLIC ACID TABLET (FP) PO SCH (09:51)
[2018-10-29] MEDS: ASPIRIN 81 MG CHEWABLE TABLETS PO SCH (09:51)
[2018-10-29] MEDS: HYDROCHLOROTHIAZIDE 12.5 MG CAPSULE (FP) PO SCH (09:52)
--- NOTE | 2018-10-29 14:42 | DS ---
[facility] Detox Discharge Summary Admission Date: 10/25/18 Discharge Date: 10/29/18 - History Present History: Alcohol Dependence Additional Comments: 58 years old female admitted on 10/25/18 for alcohol withdrawal stabilization completed detox regimen aftercare [facility] - Physical Exam Results Vital Signs: Vital Signs Temperature 96.4 F L 10/29/18 09:35 Pulse Rate 90 10/29/18 09:35 Respiratory Rate 18 10/29/18 09:35 Blood Pressure 145/94 10/29/18 09:35 O2 Sat by Pulse Oximetry (%) Pertinent Admission Physical Exam Findings: alcohol withdrawal sx Laboratory Last Values WBC 4.3 K/mm3 (4.0-10.0) 10/26/18 07:50 RBC 3.87 M/mm3 (3.60-5.2) 10/26/18 07:50 Hgb 13.0 GM/dL (10.7-15.3) 10/26/18 07:50 Hct 38.4 % (32.4-45.2) D 10/26/18 07:50 MCV 99.2 fl (80-96) H 10/26/18 07:50 MCH 33.7 pg (25.7-33.7) 10/26/18 07:50 MCHC 34.0 g/dl (32.0-36.0) 10/26/18 07:50 RDW 15.4 % (11.6-15.6) 10/26/18 07:50 Plt Count 309 K/MM3 (134-434) D 10/26/18 07:50 MPV 7.6 fl (7.5-11.1) 10/26/18 07:50 Sodium 140 mmol/L (136-145) 10/26/18 07:50 Potassium 4.0 mmol/L (3.5-5.1) 10/26/18 07:50 Chloride 107 mmol/L (98-107) 10/26/18 07:50 Carbon Dioxide 25 mmol/L (21-32) 10/26/18 07:50 Anion Gap 8 MMOL/L (8-16) 10/26/18 07:50 BUN 23 mg/dL (7-18) H 10/26/18 07:50 Creatinine 1.0 mg/dL (0.55-1.3) 10/26/18 07:50 Creat Clearance w eGFR 56.95 (>60) 10/26/18 07:50 Random Glucose 127 mg/dL (74-106) H 10/26/18 07:50 Calcium 8.4 mg/dL (8.5-10.1) L 10/26/18 07:50 Total Bilirubin 0.2 mg/dL (0.2-1) 10/26/18 07:50 AST 16 U/L (15-37) 10/26/18 07:50 ALT 23 U/L (13-61) 10/26/18 07:50 Alkaline Phosphatase 84 U/L (45-117) 10/26/18 07:50 Total Protein 6.7 g/dl (6.4-8.2) 10/26/18 07:50 Albumin 3.4 g/dl (3.4-5.0) 10/26/18 07:50 RPR Titer Nonreactive (NONREACTIVE) 10/26/18 07:50 lab noted - Treatment Hospital Course: Detox Protocol Followed, Detoxed Safely, Responded well, Discharged Condition Good, Rehab Referral Accepted Patient has Accepted a Rehab Referral to: [facility] - Medication Discharge Medications: Ambulatory Orders Aspirin [ASA -] 81 mg PO DAILY #30 mg 10/08/17 Fluticasone/Salmeterol [Advair 250-50 Diskus] 1 each IH BID #1 disk.w.dev Pantoprazole Sodium [Protonix -] 20 mg PO DAILY #14 tablet.ec 02/22/18 Tolnaftate 1% Cream [Tinactin 1% Cream -] 1 applic TP BID cream..g. 05/01/18 Amox-Tr/K Cl [Augmentin 500-125mg Tablet -] 500 mg PO BID 07/03/18 Albuterol Sulfate Inhaler - [Ventolin HFA Inhaler -] 2 puff IH Q4H PRN #1 inhaler 09/16/18 Amlodipine Besylate [Norvasc -] 5 mg PO DAILY #14 tablet 09/16/18 Budesonide/Formeterol Fumarate [SYMBICORT 160/4.5mcg -] 2 puff IH BID #1 inhaler 09/16/18 Hydrochlorothiazide [Hctz -] 12.5 mg PO DAILY #14 cap 09/16/18 Montelukast Na [Singulair -] 10 mg PO HS #14 tablet 09/16/18 - Diagnosis (1) Alcohol dependence with uncomplicated withdrawal Status: Acute (2) Nicotine dependence Status: Acute Qualifiers: Nicotine product type: cigarettes Substance use status: in withdrawal Qualified Code(s): F17.213 - Nicotine dependence, cigarettes, with withdrawal (3) Substance induced mood disorder Status: Suspected (4) Asthma Status: Chronic Qualifiers: Asthma severity: mild Asthma persistence: intermittent Asthma complication type: unspecified Qualified Code(s): J45.20 - Mild intermittent asthma, uncomplicated (5) COPD (chronic obstructive pulmonary disease) Status: Chronic Qualifiers: COPD type: emphysema Emphysema type: other Qualified Code(s): J43.8 - Other emphysema (6) GERD (gastroesophageal reflux disease) Status: Chronic Qualifiers: Esophagitis presence: without esophagitis Qualified Code(s): K21.9 - Gastro -esophageal reflux disease without esophagitis (7) Hypertension Status: Chronic Qualifiers: Hypertension type: unspecified Qualified Code(s): I10 - Essential (primary ) hypertension (8) Poor oral hygiene Status: Chronic (9) Positive PPD Status: Resolved - AMA Did Patient Leave Against Medical Advice: No
== END 2018-10-29 09:58 | disposition home or self-care (01) | DRG 774 ==
LOC: YASAS 12:21 → Y6N 13:55 → Y3N 14:00
PROVIDERS: ADMIT Surgery; ATTEND Surgery
PROC: HZ2ZZZZ Detoxification Services for Substance Abuse Treatment (ICD-10-PCS; principal; 2018-10-25)
DX: F10.230 Alcohol dependence with withdrawal, uncomplicated (principal); F14.20 Cocaine dependence, uncomplicated; F17.213 Nicotine dependence, cigarettes, with withdrawal; F19.24 Other psychoactive substance dependence with psychoactive substance-induced mood disorder; F25.9 Schizoaffective disorder, unspecified; F31.9 Bipolar disorder, unspecified; I10 Essential (primary) hypertension; J45.20 Mild intermittent asthma, uncomplicated; J43.8 Other emphysema; K21.9 Gastro-esophageal reflux disease without esophagitis; K08.9 Disorder of teeth and supporting structures, unspecified; R76.11 Nonspecific reaction to tuberculin skin test without active tuberculosis; D64.9 Anemia, unspecified; M19.90 Unspecified osteoarthritis, unspecified site; K59.00 Constipation, unspecified; K05.10 Chronic gingivitis, plaque induced; Z91.013 Allergy to seafood
CPT/HCPCS: 36415; 80053; 85027; 86593

== ENCOUNTER 2018-12-03 12:00 | Inpatient (IN) | payer OTHER ==
[2018-12-03 12:43] VITALS: BMI 29.7
--- NOTE | 2018-12-03 17:31 | HP ---
"CIWA Score Nausea/Vomitin-No Nausea/No Vomiting Muscle Tremors: None Anxiety: 2 Agitation: 1-Slight > Activity Paroxysmal Sweats: No Perspiration Orientation: 0-Oriented Tacttile Disturbances: 1-Very Mild Itch/Numbness Auditory Disturbances: 1-Very Mild Visual Disturbances: 1-Very Mild Sensitivity Headache: 0-None Present CIWA-Ar Total Score: 6 - Admission Criteria OASAS Guidelines: Admission for Medically Managed Detox: Requires at least one of the followin. CIWA greater than 12 2. Seizures within the past 24 hours 3. Delirium tremens within the past 24 hours 4. Hallucinations within the past 24 hours 5. Acute intervention needed for co occurring medical disorder 6. Acute intervention needed for co occurring psychiatric disorder 7. Severe withdrawal that cannot be handled at a lower level of care (continued vomiting, continued diarrhea, abnormal vital signs) requiring intravenous medication and/or fluids 8. Admission ROS [facility] Allergies/Adverse Reactions: Allergies Allergy/AdvReac Type Severity Reaction Status Date / Time mushroom Allergy Severe Rash Verified 12/03/18 17:59 No Known Drug Allergies Allergy Verified 12/03/18 17:59 salmon Allergy Severe Difficulty Uncoded 12/03/18 17:59 Breathing History of Present Illness: pt here requesting detox from etoh use , current symptoms as above, 3 x 24 oz cans /ay and 1 pint aracelis , prior detox 1 m ago , relapsed after d/c , reports symptoms as above if not drinking , reports starts to drink in the evenings , not during daytime , denies seizures, blackouts or tremors . PMHX : htn, asthma since childhood ( hospitalized, [place] ) , olya knees OA , chronic back pain , reports uses cane Psych : SAD , bipolar d/o , reports AH in the past , denies SA ,denies current SI / HI , reports paranois with crack cocaine use . tobacco : w/ etoh use cocaine : 50-60 $/day denies IVDU Search Terms: sulma suero, 1960 Search Date: 12/03/2018 05:30:52 PM The Drug Utilization Report below displays all of the controlled substance prescriptions, if any, that your patient has filled in the last twelve months. The information displayed on this report is compiled from pharmacy submissions to the Department, and accurately reflects the information as submitted by the pharmacies. This report was requested by: Isabel Reynoso | Reference #: [id number] There are no results for the search terms that you entered. SHx : lives in group home Exam Limitations: No Limitations - Ebola screening Have you traveled outside of the country in the last 21 days: No Have you had contact with anyone from an Ebola affected area: No Have you been sick,other than usual withdrawal symptoms: No - Review of Systems Constitutional: See HPI EENT: reports: See HPI, Dental Problems (reports toothache), Other (glasses , missing teeth) Respiratory: reports: Shortness of Breath Cardiac: reports: No Symptoms Reported GI: reports: Constipated (intermittently) : reports: No Symptoms Reported Musculoskeletal: reports: Back Pain, Joint Pain Integumentary: reports: Dryness Neuro: reports: No Symptoms reported Endocrine: reports: No Symptoms Reported Psychiatric: reports: Orientated x3, Agitated, Anxious Patient History - Patient Medical History Hx Anemia: Yes (Ferrous sulfate, Vitamins) Hx Asthma: Yes (on albuterol inhaler) Hx Chronic Obstructive Pulmonary Disease (COPD): No Hx Cancer: No Hx Cardiac Disorders: No Hx Congestive Heart Failure: No Hx Hypertension: Yes (on med) Hx Hypercholesterolemia: No Hx Pacemaker: No HX Cerebrovascular Accident: No Hx Seizures: No Hx Dementia: No Hx Diabetes: No Hx Gastrointestinal Disorders: Yes (GERD) Hx Liver Disease: No Hx Genitourinary Disorders: No Hx Sexually Transmitted Disorders: No Hx Renal Disease (ESRD): No Hx Thyroid Disease: No Hx Human Immunodeficiency Virus (HIV): No (last 2017 negative) Hx Hepatitis C: No Hx Depression: Yes Hx Suicide Attempt: No Hx Bipolar Disorder: Yes Hx Schizophrenia: Yes - Patient Surgical History Past Surgical History: Yes Hx Neurologic Surgery: No Hx Cataract Extraction: No Hx Cardiac Surgery: No Hx Lung Surgery: No Hx Breast Surgery: No Hx Breast Biopsy: No Hx Abdominal Surgery: No Hx Appendectomy: No Hx Cholecystectomy: No Hx Genitourinary Surgery: No Hx Section: Yes (x2) Hx Orthopedic Surgery: Yes (right ankle fx at age 18) Hx Hysterectomy: No Anesthesia Reaction: No - PPD History Results: cxr(-)11/10/17 - Reproductive History Last Menstrual Period: 05/08/90 - Smoking Cessation Smoking history: Current some day smoker Have you smoked in the past 12 months: Yes Aproximately how many cigarettes per day: 20 Cigars Per Day: 0 Hx Chewing Tobacco Use: No Initiated information on smoking cessation: No - Substances Abused Alcohol Route: Oral Frequency: Daily Amount used: $50 Age of first use: 10 Date of Last Use: 12/02/18 Cocaine Route: Oral Frequency: Daily Amount used: $100-200 Age of first use: 28 Date of Last Use: 12/02/18 Family Disease History - Family Disease History Family Disease History: Diabetes: Sister, Heart Disease: Father (), Mother (COPD- ), Other: Mother, Brother (only child) Admission Physical Exam S - Vital Signs Vital Signs: Vital Signs - 24 hr 12/03/18 12:42 Temperature 96.8 F L Pulse Rate 83 Respiratory 18 Rate Blood Pressure 138/79 - Physical General Appearance: Yes: Disheveled, Mild Distress, Anxious HEENTM: Yes: EOMI, Hearing grossly Normal, Normocephalic, Normal Voice, Other ( poor dentition, many missing teeth) Respiratory: Yes: Chest Non-Tender, Lungs Clear Neck: Yes: No masses,lesions,Nodules, Trachea in good position Cardiology: Yes: Regular Rhythm, Regular Rate, S1, S2 Abdominal: Yes: Non Tender, Soft Back: Yes: Normal Inspection Musculoskeletal: Yes: Joint Stiffness Extremities: Yes: Normal Range of Motion Neurological: Yes: Motor Strength 5/5 - Diagnostic (1) Nicotine dependence Current Visit: Yes Status: Chronic Qualifiers: Nicotine product type: cigarettes Substance use status: in withdrawal Qualified Code(s): F17.213 - Nicotine dependence, cigarettes, with withdrawal (2) Alcohol dependence Current Visit: Yes Status: Acute Qualifiers: Substance use status: uncomplicated Qualified Code(s): F10.20 - Alcohol dependence, uncomplicated (3) Cocaine dependence Current Visit: Yes Status: Chronic Qualifiers: Substance use status: uncomplicated Qualified Code(s): F14.20 - Cocaine dependence, uncomplicated BHS Breath Alcohol Content Breath Alcohol Content: 0 Urine Pregancy Test - Result Urine Test Results: Negative - NO line present Urine Drug Screen - Results Drug Screen Negative: No Urine Drug Screen Results: [facility] Inpatient Rehab Admission - Rehab Decision to Admit Inpatient rehab admission?: Yes - Initial Determination Are CD services needed?: Yes Free of communicable disease: Yes Not in need of hospitalization: Yes - Rehab Admission Criteria Previous failed treatment: Yes Poor recovery environment: Yes Comorbidities: Yes Lacks judgement: Yes Patient is meeting Inpatient Rehab admission criteria:: Yes"
[2018-12-03] MEDS ORDERED: P-EPHED 60MG/TRIPROLIDI 2.5MG TABLET PO PRN (17:45)
[2018-12-03] MEDS ORDERED: guaiFENesin 200 MG/10 ML 10 ML UNIT-DOSE CUPS PO PRN (17:45)
[2018-12-03] MEDS ORDERED: MENTHOL/PHENOL 1 EACH UD MM PRN (17:45)
[2018-12-03] MEDS ORDERED: MAG HYDROX/AL HYDROX/SIMETH 30 ML UNIT-DOSE CUP PO PRN (17:45)
[2018-12-03] MEDS ORDERED: LOPERAMIDE HCL 2 MG CAPSULE PO PRN (17:45)
[2018-12-03] MEDS: THIAMINE HCL 100 MG TABLET (FP) PO SCH (21:37)
[2018-12-03] MEDS: BUDESONIDE/FORMETEROL FUMARATE 160/4.5 mcg INHALER IH SCH (21:37)
[2018-12-03] MEDS: METHYL SALICYLATE/MENTHOL OINT 30 GM TUBE TP SCH (21:38)
[2018-12-03] MEDS: MELATONIN 5 MG TABLETS PO PRN (21:40)
[2018-12-03] MEDS: LIDOCAINE PATCH REMOVAL MC SCH (21:41)
[2018-12-03] MEDS: LIDOCAINE 5% TOPICAL PATCH TP SCH (21:41)
[2018-12-03] MEDS: MAGNESIUM HYDROX 2400MG/30ML ORAL SUSPENSION 30 ML CUP PO PRN (21:50)
[2018-12-03] MEDS: diphenhydrAMINE HCL 25 MG CAPSULE (FP) PO PRN (21:51)
[2018-12-03] MEDS: ACETAMINOPHEN 325 MG TABLET (FP) PO PRN (23:10)
[2018-12-03] MEDS: TOLNAFTATE 1% CREAM 15 GM TUBE TP SCH (23:10)
[2018-12-03] MEDS ORDERED: PT OWN MED DRAWER 7, Y5N ONE (23:39)
[2018-12-04] MEDS: IBUPROFEN 400 MG TABLET (FP) PO PRN ×3 (01:01→20:06)
[2018-12-04] MEDS: COLLOIDAL OATMEAL 1 BAR EACH TP PRN (08:51)
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
[2018-12-04] MEDS: HYDROCHLOROTHIAZIDE 12.5 MG CAPSULE (FP) PO SCH (09:39)
[2018-12-04] MEDS: PRENATAL VITAMINS W/ FOLIC ACID TABLET (FP) PO SCH (09:39)
[2018-12-04] MEDS: amLODIPine BESYLATE 5 MG TABLET (FP) PO SCH (09:39)
[2018-12-04] MEDS: PANTOPRAZOLE 20 MG TABLET (FP) PO SCH (09:39)
[2018-12-04] MEDS: LIDOCAINE 5% TOPICAL PATCH TP SCH (09:40)
[2018-12-04] MEDS: ACETAMINOPHEN 325 MG TABLET (FP) PO PRN ×2 (09:40→23:16)
[2018-12-04] MEDS: ASPIRIN 81 MG CHEWABLE TABLETS PO SCH (09:40)
[2018-12-04] MEDS: METHYL SALICYLATE/MENTHOL OINT 30 GM TUBE TP SCH ×2 (09:41→21:11)
[2018-12-04] MEDS: BUDESONIDE/FORMETEROL FUMARATE 160/4.5 mcg INHALER IH SCH ×2 (09:41→21:10)
[2018-12-04] MEDS: TOLNAFTATE 1% CREAM 15 GM TUBE TP SCH ×2 (09:42→21:11)
[2018-12-04] MEDS: MAGNESIUM CITRATE 300 ML BOTTLE PO PRN (10:53)
[2018-12-04 12:06] LABS: ALBUMIN 3.4 g/dl (3.4-5.0); ALK PHOS 86 U/L (45-117); ANION GAP 7 MMOL/L (8-16); BILIRUBIN,TOTAL 0.3 mg/dL (0.2-1); BLOOD UREA NITROGEN 13 mg/dL (7-18); CALCIUM 8.4 mg/dL (8.5-10.1); CHLORIDE 105 mmol/L (98-107); CO2 28 mmol/L (21-32); CREATININE 0.9 mg/dL (0.55-1.3); GLUCOSE,RANDOM 127 mg/dL (74-106); SGOT/AST 21 U/L (15-37); SGPT/ALT 27 U/L (13-61); SODIUM 140 mmol/L (136-145); TOT PROT 6.7 g/dl (6.4-8.2)
[2018-12-04 12:07] LABS: HEMATOCRIT 40.8 % (32.4-45.2); HEMOGLOBIN 13.1 GM/dL (10.7-15.3); MCH 31.3 pg (25.7-33.7); MEAN CELL VOLUME 97.8 fl (80-96); MEAN PLT VOLUME 7.6 fl (7.5-11.1); PLATELET COUNT 310 K/MM3 (134-434); RBC 4.17 M/mm3 (3.60-5.2); RDW 14.8 % (11.6-15.6)
[2018-12-04] MEDS ORDERED: BUDESONIDE/FORMETEROL FUMARATE 160/4.5 mcg INHALER IH SCH (12:15)
[2018-12-04] MEDS ORDERED: NICOTINE POLACRILEX 2 MG GUM BUC PRN (14:04)
[2018-12-04] MEDS: AMOX TR/POT CLAV 500MG/125MG TABLETS (FP) PO SCH (17:44)
[2018-12-04] MEDS: NICOTINE 14 MG/24 HOURS TOPICAL PATCH TD SCH (17:45)
[2018-12-04] MEDS: THIAMINE HCL 100 MG TABLET (FP) PO SCH (21:10)
[2018-12-04] MEDS: diphenhydrAMINE HCL 25 MG CAPSULE (FP) PO PRN (21:10)
[2018-12-04] MEDS: LIDOCAINE PATCH REMOVAL MC SCH (21:11)
[2018-12-04] MEDS: QUEtiapine FUMARATE 50 MG TABLET PO SCH (21:12)
[2018-12-04] MEDS: MONTELUKAST NA 10 MG TABLET PO SCH (21:12)
[2018-12-04] MEDS: CHLORHEXIDINE GLUCONATE 0.12% 15ML CUP MM SCH (21:13)
[2018-12-05] MEDS ORDERED: LIDOCAINE VISCOUS 2% ORAL/TOP 100 ML BOTTLE MM PRN (00:10)
[2018-12-05] MEDS: IBUPROFEN 400 MG TABLET (FP) PO PRN ×3 (01:34→21:39)
[2018-12-05] MEDS: AMOX TR/POT CLAV 500MG/125MG TABLETS (FP) PO SCH ×2 (07:07→18:02)
[2018-12-05] MEDS: NALTREXONE HCL 50 MG TABLET PO SCH (10:37)
[2018-12-05] MEDS: HYDROCHLOROTHIAZIDE 12.5 MG CAPSULE (FP) PO SCH (10:38)
[2018-12-05] MEDS: amLODIPine BESYLATE 5 MG TABLET (FP) PO SCH (10:38)
[2018-12-05] MEDS: PRENATAL VITAMINS W/ FOLIC ACID TABLET (FP) PO SCH (10:38)
[2018-12-05] MEDS: PANTOPRAZOLE 20 MG TABLET (FP) PO SCH (10:38)
[2018-12-05] MEDS: ASPIRIN 81 MG CHEWABLE TABLETS PO SCH (10:38)
[2018-12-05] MEDS: NICOTINE 14 MG/24 HOURS TOPICAL PATCH TD SCH (10:39)
[2018-12-05] MEDS: CHLORHEXIDINE GLUCONATE 0.12% 15ML CUP MM SCH ×2 (10:40→21:38)
[2018-12-05] MEDS: METHYL SALICYLATE/MENTHOL OINT 30 GM TUBE TP SCH ×2 (10:41→21:37)
[2018-12-05] MEDS: BUDESONIDE/FORMETEROL FUMARATE 160/4.5 mcg INHALER IH SCH ×2 (10:41→21:38)
[2018-12-05] MEDS: TOLNAFTATE 1% CREAM 15 GM TUBE TP SCH ×2 (10:41→21:41)
[2018-12-05] MEDS: LIDOCAINE 5% TOPICAL PATCH TP SCH (10:43)
[2018-12-05] MEDS ORDERED: PT OWN MED DRAWER 7, Y5N ONE (10:48)
[2018-12-05] MEDS: THIAMINE HCL 100 MG TABLET (FP) PO SCH (21:36)
[2018-12-05] MEDS: QUEtiapine FUMARATE 50 MG TABLET PO SCH (21:36)
[2018-12-05] MEDS: MONTELUKAST NA 10 MG TABLET PO SCH (21:36)
[2018-12-05] MEDS: LIDOCAINE PATCH REMOVAL MC SCH (21:37)
[2018-12-05] MEDS: diphenhydrAMINE HCL 25 MG CAPSULE (FP) PO PRN (21:39)
[2018-12-06] MEDS: AMOX TR/POT CLAV 500MG/125MG TABLETS (FP) PO SCH ×2 (07:02→17:37)
[2018-12-06] MEDS: IBUPROFEN 400 MG TABLET (FP) PO PRN ×2 (07:03→21:23)
[2018-12-06] MEDS: TOLNAFTATE 1% CREAM 15 GM TUBE TP SCH ×2 (09:47→21:25)
[2018-12-06] MEDS: CHLORHEXIDINE GLUCONATE 0.12% 15ML CUP MM SCH ×2 (09:47→21:24)
[2018-12-06] MEDS: NICOTINE 14 MG/24 HOURS TOPICAL PATCH TD SCH (09:47)
[2018-12-06] MEDS: HYDROCHLOROTHIAZIDE 12.5 MG CAPSULE (FP) PO SCH (09:48)
[2018-12-06] MEDS: NALTREXONE HCL 50 MG TABLET PO SCH (09:48)
[2018-12-06] MEDS: PANTOPRAZOLE 20 MG TABLET (FP) PO SCH (09:48)
[2018-12-06] MEDS: PRENATAL VITAMINS W/ FOLIC ACID TABLET (FP) PO SCH (09:48)
[2018-12-06] MEDS: amLODIPine BESYLATE 5 MG TABLET (FP) PO SCH (09:49)
[2018-12-06] MEDS: BUDESONIDE/FORMETEROL FUMARATE 160/4.5 mcg INHALER IH SCH ×2 (09:49→21:24)
[2018-12-06] MEDS: ASPIRIN 81 MG CHEWABLE TABLETS PO SCH (09:49)
[2018-12-06] MEDS: METHYL SALICYLATE/MENTHOL OINT 30 GM TUBE TP SCH ×2 (09:51→21:22)
[2018-12-06] MEDS: LIDOCAINE 5% TOPICAL PATCH TP SCH (09:51)
[2018-12-06] MEDS: MAGNESIUM HYDROX 2400MG/30ML ORAL SUSPENSION 30 ML CUP PO PRN (14:19)
[2018-12-06] MEDS: QUEtiapine FUMARATE 50 MG TABLET PO SCH (21:21)
[2018-12-06] MEDS: diphenhydrAMINE HCL 25 MG CAPSULE (FP) PO PRN (21:21)
[2018-12-06] MEDS: MONTELUKAST NA 10 MG TABLET PO SCH (21:21)
[2018-12-06] MEDS: THIAMINE HCL 100 MG TABLET (FP) PO SCH (21:21)
[2018-12-06] MEDS: LIDOCAINE PATCH REMOVAL MC SCH (21:22)
[2018-12-07] MEDS: AMOX TR/POT CLAV 500MG/125MG TABLETS (FP) PO SCH ×2 (07:22→18:11)
[2018-12-07] MEDS ORDERED: PT OWN MED DRAWER 7, Y5N ONE (08:52)
[2018-12-07] MEDS: NALTREXONE HCL 50 MG TABLET PO SCH (10:20)
[2018-12-07] MEDS: HYDROCHLOROTHIAZIDE 12.5 MG CAPSULE (FP) PO SCH (10:21)
[2018-12-07] MEDS: PANTOPRAZOLE 20 MG TABLET (FP) PO SCH (10:21)
[2018-12-07] MEDS: CHLORHEXIDINE GLUCONATE 0.12% 15ML CUP MM SCH ×2 (10:21→23:04)
[2018-12-07] MEDS: ASPIRIN 81 MG CHEWABLE TABLETS PO SCH (10:21)
[2018-12-07] MEDS: amLODIPine BESYLATE 5 MG TABLET (FP) PO SCH (10:21)
[2018-12-07] MEDS: PRENATAL VITAMINS W/ FOLIC ACID TABLET (FP) PO SCH (10:21)
[2018-12-07] MEDS: METHYL SALICYLATE/MENTHOL OINT 30 GM TUBE TP SCH ×2 (10:24→23:04)
[2018-12-07] MEDS: NICOTINE 14 MG/24 HOURS TOPICAL PATCH TD SCH (10:26)
[2018-12-07] MEDS: LIDOCAINE 5% TOPICAL PATCH TP SCH (10:27)
[2018-12-07] MEDS: TOLNAFTATE 1% CREAM 15 GM TUBE TP SCH ×2 (10:28→23:05)
[2018-12-07] MEDS: BUDESONIDE/FORMETEROL FUMARATE 160/4.5 mcg INHALER IH SCH ×2 (10:28→23:04)
[2018-12-07] MEDS: MINERAL OIL/PETROLAT/WATER TOPICAL CREAM 113 GM JAR TP SCH (14:59)
[2018-12-07] MEDS: MELATONIN 5 MG TABLETS PO PRN (21:42)
[2018-12-07] MEDS: MONTELUKAST NA 10 MG TABLET PO SCH (21:42)
[2018-12-07] MEDS: diphenhydrAMINE HCL 25 MG CAPSULE (FP) PO PRN (21:42)
[2018-12-07] MEDS: QUEtiapine FUMARATE 50 MG TABLET PO SCH (21:42)
[2018-12-07] MEDS: THIAMINE HCL 100 MG TABLET (FP) PO SCH (21:42)
[2018-12-07] MEDS: IBUPROFEN 400 MG TABLET (FP) PO PRN (21:43)
[2018-12-07] MEDS: LIDOCAINE PATCH REMOVAL MC SCH (23:04)
[2018-12-08] MEDS: AMOX TR/POT CLAV 500MG/125MG TABLETS (FP) PO SCH ×2 (07:13→16:53)
[2018-12-08] MEDS ORDERED: PT OWN MED DRAWER 7, Y5N ONE ×3 (08:22→21:32)
--- NOTE | 2018-12-08 09:06 | PN ---
[facility] Progress Note Note: NURSE REPORTS PT REQUESTING BGM TO BE D/C'D. PT'S H/P WAS REVIEWED AND NO INDICATION OF HX DM OR HYPERGLYCEMIA EXCEPT ELEVATED ADMISSION RANDOM GLUCOSE BELOW. SPOKE TO PT WHO DENIES ANY HX OF DM BUT REPORTS FAMILY HISTORY OF RELATIVES WITH DM. Vital Signs - 24 hr 12/08/18 12/08/18 12/08/18 00:30 03:30 06:46 Temperature 97.3 F L Pulse Rate 88 Respiratory 18 18 18 Rate Blood Pressure 127/82 Laboratory Tests 12/04/18 12/04/18 12/04/18 10:00 10:00 10:00 WBC 4.0 RBC 4.17 Hgb 13.1 Hct 40.8 MCV 97.8 H MCH 31.3 MCHC 32.0 RDW 14.8 Plt Count 310 MPV 7.6 Sodium 140 Potassium 4.0 Chloride 105 Carbon Dioxide 28 Anion Gap 7 L BUN 13 Creatinine 0.9 Creat Clearance w eGFR 64.31 POC Glucometer Random Glucose 127 H Calcium 8.4 L Total Bilirubin 0.3 AST 21 ALT 27 Alkaline Phosphatase 86 Total Protein 6.7 Albumin 3.4 RPR Titer Nonreactive HIV 1&2 Antibody Screen HIV P24 Antigen 12/04/18 12/05/18 12/06/18 10:20 06:54 06:43 WBC RBC Hgb Hct MCV MCH MCHC RDW Plt Count MPV Sodium Potassium Chloride Carbon Dioxide Anion Gap BUN Creatinine Creat Clearance w eGFR POC Glucometer 94 92 Random Glucose Calcium Total Bilirubin AST ALT Alkaline Phosphatase Total Protein Albumin RPR Titer HIV 1&2 Antibody Screen Negative HIV P24 Antigen Negative 12/07/18 12/08/18 06:59 06:25 WBC RBC Hgb Hct MCV MCH MCHC RDW Plt Count MPV Sodium Potassium Chloride Carbon Dioxide Anion Gap BUN Creatinine Creat Clearance w eGFR POC Glucometer 98 75 Random Glucose Calcium Total Bilirubin AST ALT Alkaline Phosphatase Total Protein Albumin RPR Titer HIV 1&2 Antibody Screen HIV P24 Antigen PLAN:D/C BGM DISCUSSED ROUTINE CHECK UP AND FOLLOW UP WITH PMD FOR MEDICAL MANAGEMENT AFTER REHAB TREATMENT DISCUSSED DIET AND LIFESTYLE MANAGEMENT WITH PATIENT.
[2018-12-08] MEDS: amLODIPine BESYLATE 5 MG TABLET (FP) PO SCH (10:14)
[2018-12-08] MEDS: PANTOPRAZOLE 20 MG TABLET (FP) PO SCH (10:14)
[2018-12-08] MEDS: ASPIRIN 81 MG CHEWABLE TABLETS PO SCH (10:14)
[2018-12-08] MEDS: HYDROCHLOROTHIAZIDE 12.5 MG CAPSULE (FP) PO SCH (10:14)
[2018-12-08] MEDS: METHYL SALICYLATE/MENTHOL OINT 30 GM TUBE TP SCH ×2 (10:15→21:28)
[2018-12-08] MEDS: PRENATAL VITAMINS W/ FOLIC ACID TABLET (FP) PO SCH (10:15)
[2018-12-08] MEDS: NICOTINE 14 MG/24 HOURS TOPICAL PATCH TD SCH (10:15)
[2018-12-08] MEDS: MINERAL OIL/PETROLAT/WATER TOPICAL CREAM 113 GM JAR TP SCH (10:15)
[2018-12-08] MEDS: BUDESONIDE/FORMETEROL FUMARATE 160/4.5 mcg INHALER IH SCH ×2 (10:16→21:28)
[2018-12-08] MEDS: LIDOCAINE 5% TOPICAL PATCH TP SCH (10:16)
[2018-12-08] MEDS: TOLNAFTATE 1% CREAM 15 GM TUBE TP SCH ×2 (10:16→21:28)
[2018-12-08] MEDS: CHLORHEXIDINE GLUCONATE 0.12% 15ML CUP MM SCH ×2 (10:16→21:28)
[2018-12-08] MEDS: NALTREXONE HCL 50 MG TABLET PO SCH (11:49)
[2018-12-08] MEDS: THIAMINE HCL 100 MG TABLET (FP) PO SCH (21:27)
[2018-12-08] MEDS: QUEtiapine FUMARATE 50 MG TABLET PO SCH (21:28)
[2018-12-08] MEDS: MONTELUKAST NA 10 MG TABLET PO SCH (21:28)
[2018-12-08] MEDS: LIDOCAINE PATCH REMOVAL MC SCH (21:28)
[2018-12-08] MEDS: COLLOIDAL OATMEAL 1 BAR EACH TP PRN (21:31)
[2018-12-08] MEDS: diphenhydrAMINE HCL 25 MG CAPSULE (FP) PO PRN (21:32)
[2018-12-09] MEDS: AMOX TR/POT CLAV 500MG/125MG TABLETS (FP) PO SCH ×2 (08:09→17:04)
[2018-12-09] MEDS ORDERED: PT OWN MED DRAWER 7, Y5N ONE ×2 (08:52→10:09)
[2018-12-09] MEDS: LIDOCAINE 5% TOPICAL PATCH TP SCH (10:06)
[2018-12-09] MEDS: NICOTINE 14 MG/24 HOURS TOPICAL PATCH TD SCH (10:06)
[2018-12-09] MEDS: CHLORHEXIDINE GLUCONATE 0.12% 15ML CUP MM SCH ×2 (10:07→21:57)
[2018-12-09] MEDS: NALTREXONE HCL 50 MG TABLET PO SCH (10:07)
[2018-12-09] MEDS: HYDROCHLOROTHIAZIDE 12.5 MG CAPSULE (FP) PO SCH (10:08)
[2018-12-09] MEDS: ASPIRIN 81 MG CHEWABLE TABLETS PO SCH (10:08)
[2018-12-09] MEDS: PRENATAL VITAMINS W/ FOLIC ACID TABLET (FP) PO SCH (10:08)
[2018-12-09] MEDS: PANTOPRAZOLE 20 MG TABLET (FP) PO SCH (10:08)
[2018-12-09] MEDS: amLODIPine BESYLATE 5 MG TABLET (FP) PO SCH (10:08)
[2018-12-09] MEDS: TOLNAFTATE 1% CREAM 15 GM TUBE TP SCH ×2 (10:09→21:57)
[2018-12-09] MEDS: ALBUTEROL SO4 8 GM HFA INHALER IH PRN (10:10)
[2018-12-09] MEDS: METHYL SALICYLATE/MENTHOL OINT 30 GM TUBE TP SCH ×2 (10:36→21:57)
[2018-12-09] MEDS: BUDESONIDE/FORMETEROL FUMARATE 160/4.5 mcg INHALER IH SCH ×2 (10:36→21:57)
[2018-12-09] MEDS: MINERAL OIL/PETROLAT/WATER TOPICAL CREAM 113 GM JAR TP SCH (10:36)
[2018-12-09] MEDS: MONTELUKAST NA 10 MG TABLET PO SCH (21:54)
[2018-12-09] MEDS: diphenhydrAMINE HCL 25 MG CAPSULE (FP) PO PRN (21:54)
[2018-12-09] MEDS: QUEtiapine FUMARATE 50 MG TABLET PO SCH (21:54)
[2018-12-09] MEDS: IBUPROFEN 400 MG TABLET (FP) PO PRN (21:55)
[2018-12-09] MEDS: LIDOCAINE PATCH REMOVAL MC SCH (21:57)
[2018-12-09] MEDS: THIAMINE HCL 100 MG TABLET (FP) PO SCH (21:58)
[2018-12-10] MEDS: AMOX TR/POT CLAV 500MG/125MG TABLETS (FP) PO SCH ×2 (08:10→16:48)
[2018-12-10] MEDS ORDERED: PT OWN MED DRAWER 7, Y5N ONE (08:40)
[2018-12-10] MEDS: PANTOPRAZOLE 20 MG TABLET (FP) PO SCH (09:26)
[2018-12-10] MEDS: ASPIRIN 81 MG CHEWABLE TABLETS PO SCH (09:26)
[2018-12-10] MEDS: amLODIPine BESYLATE 5 MG TABLET (FP) PO SCH (09:26)
[2018-12-10] MEDS: NICOTINE 14 MG/24 HOURS TOPICAL PATCH TD SCH (09:26)
[2018-12-10] MEDS: PRENATAL VITAMINS W/ FOLIC ACID TABLET (FP) PO SCH (09:26)
[2018-12-10] MEDS: HYDROCHLOROTHIAZIDE 12.5 MG CAPSULE (FP) PO SCH (09:26)
[2018-12-10] MEDS: NALTREXONE HCL 50 MG TABLET PO SCH (09:26)
[2018-12-10] MEDS: BUDESONIDE/FORMETEROL FUMARATE 160/4.5 mcg INHALER IH SCH ×2 (09:27→21:24)
[2018-12-10] MEDS: MINERAL OIL/PETROLAT/WATER TOPICAL CREAM 113 GM JAR TP SCH (09:29)
[2018-12-10] MEDS: LIDOCAINE 5% TOPICAL PATCH TP SCH (09:29)
[2018-12-10] MEDS: METHYL SALICYLATE/MENTHOL OINT 30 GM TUBE TP SCH ×2 (09:29→21:24)
[2018-12-10] MEDS: CHLORHEXIDINE GLUCONATE 0.12% 15ML CUP MM SCH ×2 (09:29→21:25)
[2018-12-10] MEDS: TOLNAFTATE 1% CREAM 15 GM TUBE TP SCH ×2 (09:30→21:25)
[2018-12-10] MEDS: THIAMINE HCL 100 MG TABLET (FP) PO SCH (21:23)
[2018-12-10] MEDS: MONTELUKAST NA 10 MG TABLET PO SCH (21:24)
[2018-12-10] MEDS: QUEtiapine FUMARATE 50 MG TABLET PO SCH (21:24)
[2018-12-10] MEDS: diphenhydrAMINE HCL 25 MG CAPSULE (FP) PO PRN (21:24)
[2018-12-10] MEDS: LIDOCAINE PATCH REMOVAL MC SCH (21:24)
[2018-12-10] MEDS: IBUPROFEN 400 MG TABLET (FP) PO PRN (21:25)
[2018-12-11] MEDS: AMOX TR/POT CLAV 500MG/125MG TABLETS (FP) PO SCH (07:26)
[2018-12-11] MEDS: LIDOCAINE 5% TOPICAL PATCH TP SCH (09:48)
[2018-12-11] MEDS: NICOTINE 14 MG/24 HOURS TOPICAL PATCH TD SCH (09:48)
[2018-12-11] MEDS: ALBUTEROL SO4 8 GM HFA INHALER IH PRN (09:48)
[2018-12-11] MEDS: TOLNAFTATE 1% CREAM 15 GM TUBE TP SCH ×2 (09:49→21:56)
[2018-12-11] MEDS: PANTOPRAZOLE 20 MG TABLET (FP) PO SCH (09:49)
[2018-12-11] MEDS: NALTREXONE HCL 50 MG TABLET PO SCH (09:49)
[2018-12-11] MEDS: ASPIRIN 81 MG CHEWABLE TABLETS PO SCH (09:49)
[2018-12-11] MEDS: HYDROCHLOROTHIAZIDE 12.5 MG CAPSULE (FP) PO SCH (09:49)
[2018-12-11] MEDS: BUDESONIDE/FORMETEROL FUMARATE 160/4.5 mcg INHALER IH SCH ×2 (09:49→21:56)
[2018-12-11] MEDS: PRENATAL VITAMINS W/ FOLIC ACID TABLET (FP) PO SCH (09:49)
[2018-12-11] MEDS: amLODIPine BESYLATE 5 MG TABLET (FP) PO SCH (09:49)
[2018-12-11] MEDS: CHLORHEXIDINE GLUCONATE 0.12% 15ML CUP MM SCH ×2 (09:50→21:56)
[2018-12-11] MEDS: MINERAL OIL/PETROLAT/WATER TOPICAL CREAM 113 GM JAR TP SCH (09:50)
[2018-12-11] MEDS: METHYL SALICYLATE/MENTHOL OINT 30 GM TUBE TP SCH ×2 (09:51→21:55)
[2018-12-11] MEDS: IBUPROFEN 400 MG TABLET (FP) PO PRN (20:03)
[2018-12-11] MEDS: MONTELUKAST NA 10 MG TABLET PO SCH (21:54)
[2018-12-11] MEDS: QUEtiapine FUMARATE 50 MG TABLET PO SCH (21:54)
[2018-12-11] MEDS: diphenhydrAMINE HCL 25 MG CAPSULE (FP) PO PRN (21:54)
[2018-12-11] MEDS: LIDOCAINE PATCH REMOVAL MC SCH (21:55)
[2018-12-11] MEDS: THIAMINE HCL 100 MG TABLET (FP) PO SCH (21:56)
[2018-12-12] MEDS ORDERED: PT OWN MED DRAWER 7, Y5N ONE ×3 (08:22→21:58)
[2018-12-12] MEDS: ASPIRIN 81 MG CHEWABLE TABLETS PO SCH (10:40)
[2018-12-12] MEDS: MINERAL OIL/PETROLAT/WATER TOPICAL CREAM 113 GM JAR TP SCH (10:40)
[2018-12-12] MEDS: amLODIPine BESYLATE 5 MG TABLET (FP) PO SCH (10:40)
[2018-12-12] MEDS: METHYL SALICYLATE/MENTHOL OINT 30 GM TUBE TP SCH ×2 (10:40→21:29)
[2018-12-12] MEDS: HYDROCHLOROTHIAZIDE 12.5 MG CAPSULE (FP) PO SCH (10:40)
[2018-12-12] MEDS: NICOTINE 14 MG/24 HOURS TOPICAL PATCH TD SCH (10:41)
[2018-12-12] MEDS: PRENATAL VITAMINS W/ FOLIC ACID TABLET (FP) PO SCH (10:41)
[2018-12-12] MEDS: NALTREXONE HCL 50 MG TABLET PO SCH (10:41)
[2018-12-12] MEDS: PANTOPRAZOLE 20 MG TABLET (FP) PO SCH (10:42)
[2018-12-12] MEDS: CHLORHEXIDINE GLUCONATE 0.12% 15ML CUP MM SCH ×2 (10:42→21:47)
[2018-12-12] MEDS: TOLNAFTATE 1% CREAM 15 GM TUBE TP SCH ×2 (10:43→21:47)
[2018-12-12] MEDS: LIDOCAINE 5% TOPICAL PATCH TP SCH (10:43)
[2018-12-12] MEDS: BUDESONIDE/FORMETEROL FUMARATE 160/4.5 mcg INHALER IH SCH ×2 (10:43→21:47)
[2018-12-12] MEDS: MAGNESIUM CITRATE 300 ML BOTTLE PO PRN (17:51)
[2018-12-12] MEDS: MONTELUKAST NA 10 MG TABLET PO SCH (21:29)
[2018-12-12] MEDS: QUEtiapine FUMARATE 50 MG TABLET PO SCH (21:29)
[2018-12-12] MEDS: LIDOCAINE PATCH REMOVAL MC SCH (21:29)
[2018-12-12] MEDS: THIAMINE HCL 100 MG TABLET (FP) PO SCH (21:29)
[2018-12-12] MEDS: diphenhydrAMINE HCL 25 MG CAPSULE (FP) PO PRN (21:31)
[2018-12-12] MEDS: COLLOIDAL OATMEAL 1 BAR EACH TP PRN (21:31)
[2018-12-13] MEDS: ACETAMINOPHEN 325 MG TABLET (FP) PO PRN (01:12)
[2018-12-13] MEDS ORDERED: PT OWN MED DRAWER 7, Y5N ONE ×2 (08:04→19:10)
[2018-12-13] MEDS: MINERAL OIL/PETROLAT/WATER TOPICAL CREAM 113 GM JAR TP SCH (10:06)
[2018-12-13] MEDS: METHYL SALICYLATE/MENTHOL OINT 30 GM TUBE TP SCH ×2 (10:06→21:21)
[2018-12-13] MEDS: ASPIRIN 81 MG CHEWABLE TABLETS PO SCH (10:09)
[2018-12-13] MEDS: CHLORHEXIDINE GLUCONATE 0.12% 15ML CUP MM SCH ×2 (10:10→21:22)
[2018-12-13] MEDS: PRENATAL VITAMINS W/ FOLIC ACID TABLET (FP) PO SCH (10:10)
[2018-12-13] MEDS: NICOTINE 14 MG/24 HOURS TOPICAL PATCH TD SCH (10:10)
[2018-12-13] MEDS: HYDROCHLOROTHIAZIDE 12.5 MG CAPSULE (FP) PO SCH (10:10)
[2018-12-13] MEDS: amLODIPine BESYLATE 5 MG TABLET (FP) PO SCH (10:10)
[2018-12-13] MEDS: PANTOPRAZOLE 20 MG TABLET (FP) PO SCH (10:11)
[2018-12-13] MEDS: NALTREXONE HCL 50 MG TABLET PO SCH (10:11)
[2018-12-13] MEDS: LIDOCAINE 5% TOPICAL PATCH TP SCH (10:12)
[2018-12-13] MEDS: TOLNAFTATE 1% CREAM 15 GM TUBE TP SCH ×2 (10:15→21:22)
[2018-12-13] MEDS: BUDESONIDE/FORMETEROL FUMARATE 160/4.5 mcg INHALER IH SCH ×2 (10:15→21:22)
[2018-12-13] MEDS: LIDOCAINE PATCH REMOVAL MC SCH (21:22)
[2018-12-13] MEDS: THIAMINE HCL 100 MG TABLET (FP) PO SCH (21:22)
[2018-12-13] MEDS: MONTELUKAST NA 10 MG TABLET PO SCH (21:22)
[2018-12-13] MEDS: QUEtiapine FUMARATE 50 MG TABLET PO SCH (21:22)
--- NOTE | 2018-12-14 06:16 | PN ---
[facility] Progress Note Note: Patient is discharged today. Script for 30 days supply of Seroquel 50 mg po HS is electronically transmitted to [facility] at [address] [place] [id number]
[2018-12-14 07:00] VITALS: TEMP 97.8
--- NOTE | 2018-12-14 08:33 | PN ---
S Progress Note Note: PT COMPLETED REHAB AND DISCHARGED TODAY. PT HAS BEEN REFERRED FOR CD AFTERCARE AT [facility] [address] [facility]. PT REPORTS SHE HAS PCP WIT DR HERNANDEZ AT [address] [place] [address] FOR MEDICAL MANAGEMENT. COURTESY RX BELOW ELECTRONICALLY SENT TO PT'S PREFERRED PHARMACY, [facility]. PT IS ALERT O X 3. DENIES S/H I. Home Medications Medication Instructions Recorded Fluticasone/Salmeterol [Advair 1 each IH BID #1 disk.w.dev 10/08/17 250-50 Diskus] Tolnaftate 1% Cream [Tinactin 1% 1 applic TP BID cream..g. 05/01/18 Cream -] Albuterol Sulfate Inhaler - 2 puff IH Q4H PRN #1 inhaler 12/14/18 [Ventolin HFA Inhaler -] Amlodipine Besylate [Norvasc -] 5 mg PO DAILY #14 tablet 12/14/18 Aspirin [ASA -] 81 mg PO DAILY #30 mg 12/14/18 Budesonide/Formeterol Fumarate 2 puff IH BID #1 inhaler 12/14/18 [SYMBICORT 160/4.5mcg -] Hydrochlorothiazide [Hctz -] 12.5 mg PO DAILY #14 cap 12/14/18 Montelukast Na [Singulair -] 10 mg PO HS #14 tablet 12/14/18 Naltrexone HCl 50 mg PO DAILY #30 tablet 12/14/18 Pantoprazole Sodium [Protonix -] 20 mg PO DAILY #14 tablet.ec 12/14/18 Quetiapine Fumarate [Seroquel -] 50 mg PO HS #30 tablet 12/14/18 Vital Signs - 24 hr 12/14/18 12/14/18 12/14/18 00:30 03:30 07:00 Temperature 97.8 F Pulse Rate 87 Respiratory 18 18 18 Rate Blood Pressure 113/77 12/14/18 09:00 Temperature Pulse Rate 109 H Respiratory Rate Blood Pressure 103/71 Laboratory Tests 12/04/18 12/04/18 12/04/18 10:00 10:00 10:00 WBC 4.0 RBC 4.17 Hgb 13.1 Hct 40.8 MCV 97.8 H MCH 31.3 MCHC 32.0 RDW 14.8 Plt Count 310 MPV 7.6 Sodium 140 Potassium 4.0 Chloride 105 Carbon Dioxide 28 Anion Gap 7 L BUN 13 Creatinine 0.9 Creat Clearance w eGFR 64.31 POC Glucometer Random Glucose 127 H Calcium 8.4 L Total Bilirubin 0.3 AST 21 ALT 27 Alkaline Phosphatase 86 Total Protein 6.7 Albumin 3.4 RPR Titer Nonreactive HIV 1&2 Antibody Screen HIV P24 Antigen 12/04/18 12/05/18 12/06/18 10:20 06:54 06:43 WBC RBC Hgb Hct MCV MCH MCHC RDW Plt Count MPV Sodium Potassium Chloride Carbon Dioxide Anion Gap BUN Creatinine Creat Clearance w eGFR POC Glucometer 94 92 Random Glucose Calcium Total Bilirubin AST ALT Alkaline Phosphatase Total Protein Albumin RPR Titer HIV 1&2 Antibody Screen Negative HIV P24 Antigen Negative 12/07/18 12/08/18 06:59 06:25 WBC RBC Hgb Hct MCV MCH MCHC RDW Plt Count MPV Sodium Potassium Chloride Carbon Dioxide Anion Gap BUN Creatinine Creat Clearance w eGFR POC Glucometer 98 75 Random Glucose Calcium Total Bilirubin AST ALT Alkaline Phosphatase Total Protein Albumin RPR Titer HIV 1&2 Antibody Screen HIV P24 Antigen NAD MEDICALLY STABLE. PLAN:FOLLOW UP WITH CD AFTERCARE RECOMMENDED. FOLLOW UP WITH PCP FOR MEDICAL MANAGEMENT WITHIN 1-2 WEEKS AFTER DISCHARGE. DISCUSSED WITH PT TO MAKE APPOINTMENT WITH HER DENTIST FOR DENTAL CHECK UP AFTER DISCHARGE TODAY.
[2018-12-14] MEDS ORDERED: PT OWN MED DRAWER 7, Y5N ONE (08:48)
[2018-12-14] MEDS: HYDROCHLOROTHIAZIDE 12.5 MG CAPSULE (FP) PO SCH (09:05)
[2018-12-14] MEDS: PRENATAL VITAMINS W/ FOLIC ACID TABLET (FP) PO SCH (09:05)
[2018-12-14] MEDS: BUDESONIDE/FORMETEROL FUMARATE 160/4.5 mcg INHALER IH SCH (09:06)
[2018-12-14] MEDS: CHLORHEXIDINE GLUCONATE 0.12% 15ML CUP MM SCH (09:06)
[2018-12-14] MEDS: ASPIRIN 81 MG CHEWABLE TABLETS PO SCH (09:06)
[2018-12-14] MEDS: amLODIPine BESYLATE 5 MG TABLET (FP) PO SCH (09:06)
[2018-12-14] MEDS: NICOTINE 14 MG/24 HOURS TOPICAL PATCH TD SCH (09:06)
[2018-12-14] MEDS: NALTREXONE HCL 50 MG TABLET PO SCH (09:06)
[2018-12-14] MEDS: PANTOPRAZOLE 20 MG TABLET (FP) PO SCH (09:06)
[2018-12-14] MEDS: LIDOCAINE 5% TOPICAL PATCH TP SCH (09:08)
[2018-12-14] MEDS: METHYL SALICYLATE/MENTHOL OINT 30 GM TUBE TP SCH (09:09)
[2018-12-14] MEDS: MINERAL OIL/PETROLAT/WATER TOPICAL CREAM 113 GM JAR TP SCH (09:09)
[2018-12-14] MEDS: TOLNAFTATE 1% CREAM 15 GM TUBE TP SCH (09:10)
[2018-12-14 09:49] VITALS: BP 103/71; PULSE 109
== END 2018-12-14 09:21 | disposition home or self-care (01) | DRG 772 ==
LOC: YASAS 12:00 → Y3E 18:13
PROVIDERS: ADMIT Neuromusculoskeletal Medicine & OMM; ATTEND Neuromusculoskeletal Medicine & OMM
PROC: HZ42ZZZ Group Counseling for Substance Abuse Treatment, Cognitive-Behavioral (ICD-10-PCS; principal; 2018-12-03)
DX: F10.20 Alcohol dependence, uncomplicated (principal); F14.20 Cocaine dependence, uncomplicated; F17.210 Nicotine dependence, cigarettes, uncomplicated; F25.9 Schizoaffective disorder, unspecified; F20.0 Paranoid schizophrenia; F43.10 Post-traumatic stress disorder, unspecified; F19.24 Other psychoactive substance dependence with psychoactive substance-induced mood disorder; F19.282 Other psychoactive substance dependence with psychoactive substance-induced sleep disorder; I10 Essential (primary) hypertension; J45.909 Unspecified asthma, uncomplicated; M17.0 Bilateral primary osteoarthritis of knee; K02.9 Dental caries, unspecified; K21.9 Gastro-esophageal reflux disease without esophagitis; J43.8 Other emphysema; L98.8 Other specified disorders of the skin and subcutaneous tissue; R76.11 Nonspecific reaction to tuberculin skin test without active tuberculosis; M54.5 Low back pain; G89.29 Other chronic pain; D64.9 Anemia, unspecified; Z91.013 Allergy to seafood
CPT/HCPCS: 36415; 80053; 82962; 85027; 86593; 87389

== ENCOUNTER 2019-01-13 14:56 | Inpatient (IN) | payer OTHER | END 2019-01-20 09:25 | disposition home or self-care (01) | LOC: YASAS 14:56 → Y3E 17:32 ==

== ENCOUNTER 2019-02-12 10:45 | Inpatient (IN) | payer OTHER ==
[2019-02-12 12:19] VITALS: BMI 30.5
--- NOTE | 2019-02-12 13:29 | HP ---
CIWA Score Nausea/Vomitin Muscle Tremors: None Anxiety: 4-Mod. Anxious/Guarded Agitation: 0-Normal Activity Paroxysmal Sweats: No Perspiration Orientation: 0-Oriented Tacttile Disturbances: 1-Very Mild Itch/Numbness Auditory Disturbances: 2-Mild Harshness/Frighten Visual Disturbances: 2-Mild Sensitivity Headache: 0-None Present CIWA-Ar Total Score: 12 - Admission Criteria OASAS Guidelines: Admission for Medically Managed Detox: Requires at least one of the followin. CIWA greater than 12 2. Seizures within the past 24 hours 3. Delirium tremens within the past 24 hours 4. Hallucinations within the past 24 hours 5. Acute intervention needed for co occurring medical disorder 6. Acute intervention needed for co occurring psychiatric disorder 7. Severe withdrawal that cannot be handled at a lower level of care (continued vomiting, continued diarrhea, abnormal vital signs) requiring intravenous medication and/or fluids 8. Admission ROS S - HPI Allergies/Adverse Reactions: Allergies Allergy/AdvReac Type Severity Reaction Status Date / Time mushroom Allergy Severe Rash Verified 02/12/19 12:04 No Known Drug Allergies Allergy Verified 02/12/19 12:04 salmon Allergy Severe Difficulty Uncoded 02/12/19 12:04 Breathing History of Present Illness: pt here requesting detox from etoh use , current symptoms as above, 9 beers and 1/2 pint liquor/day , latest use yesterday , relapsed 2 days after d/c from this facility 01/20/19, current symptoms as above , reports starts to drink in the evenings , not during daytime , denies seizures, blackouts or tremors . States saw dentist 2 days ago was told to see oral surgeon . PMHX : htn, asthma since childhood ( hospitalized, [place] ) , olya knees OA , chronic back pain , reports uses cane. Psych : SAD , bipolar d/o , reports AH in the past , denies SA ,denies current SI / HI , reports paranoia with crack cocaine. tobacco : w/ etoh use cocaine : 50-60 $/day denies IVDU Exam Limitations: Clinical Condition - Ebola screening Have you traveled outside of the country in the last 21 days: No (N) Have you had contact with anyone from an Ebola affected area: No Do you have a fever: No - Review of Systems Constitutional: See HPI EENT: reports: See HPI Respiratory: reports: Productive cough (reports yellowish sputum x several days) Cardiac: reports: No Symptoms Reported GI: reports: See HPI : reports: Incontinence Musculoskeletal: reports: No Symptoms Reported Integumentary: reports: No Symptoms Reported Neuro: reports: No Symptoms reported Endocrine: reports: See HPI (claims she is pre-diabetic) Psychiatric: reports: Orientated x3, Agitated, Anxious Patient History - Patient Medical History Hx Anemia: Yes (Ferrous sulfate, Vitamins) Hx Asthma: Yes (on albuterol inhaler) Hx Chronic Obstructive Pulmonary Disease (COPD): No Hx Cancer: No Hx Cardiac Disorders: No Hx Congestive Heart Failure: No Hx Hypertension: Yes (on med) Hx Hypercholesterolemia: No Hx Pacemaker: No HX Cerebrovascular Accident: No Hx Seizures: No Hx Dementia: No Hx Diabetes: No Hx Gastrointestinal Disorders: Yes (GERD) Hx Liver Disease: No Hx Genitourinary Disorders: No Hx Sexually Transmitted Disorders: No Hx Renal Disease (ESRD): No Hx Thyroid Disease: No Hx Human Immunodeficiency Virus (HIV): No (last 2016 negative) Hx Hepatitis C: No Hx Depression: Yes Hx Suicide Attempt: No Hx Bipolar Disorder: Yes Hx Schizophrenia: Yes - Patient Surgical History Past Surgical History: Yes Hx Neurologic Surgery: No Hx Cataract Extraction: No Hx Cardiac Surgery: No Hx Lung Surgery: No Hx Breast Surgery: No Hx Breast Biopsy: No Hx Abdominal Surgery: No Hx Appendectomy: No Hx Cholecystectomy: No Hx Genitourinary Surgery: No Hx Section: Yes (x2) Hx Orthopedic Surgery: Yes (right ankle fx at age 18) Hx Hysterectomy: No Anesthesia Reaction: No - PPD History Results: cxr(-)11/10/17 - Reproductive History Last Menstrual Period: 05/08/90 - Smoking Cessation Smoking history: Current some day smoker Have you smoked in the past 12 months: Yes Aproximately how many cigarettes per day: 20 Cigars Per Day: 0 Hx Chewing Tobacco Use: No Initiated information on smoking cessation: No - Substances abused Alcohol Substance route: Oral Frequency: Daily Amount used: $20 Age of first use: 10 Date of last use: 02/11/19 Crack Substance route: Smoking Frequency: Daily Amount used: $100 Age of first use: 28 Date of last use: 02/11/19 Family Disease History - Family Disease History Family Disease History: Diabetes: Sister, Heart Disease: Father (), Mother (COPD- ), Other: Mother Admission Physical Exam BHS - Vital Signs Vital Signs: Vital Signs - 24 hr 02/12/19 11:54 Temperature 96.6 F L Pulse Rate 97 H Respiratory 18 Rate Blood Pressure 125/76 - Physical General Appearance: Yes: Mild Distress, Irritable, Anxious HEENTM: Yes: EOMI, Hearing grossly Normal, Normocephalic, Normal Voice, Other ( poor dentition , gingival erythema / tenderness , many missing teeth) Respiratory: Yes: Lungs Clear, Normal Breath Sounds, No Respiratory Distress, No Accessory Muscle Use Neck: Yes: No masses,lesions,Nodules, Trachea in good position Cardiology: Yes: Regular Rhythm, Regular Rate, S1, S2 Abdominal: Yes: Non Tender, Soft Musculoskeletal: Yes: Gait Steady Extremities: Yes: Non-Tender Neurological: Yes: Fully Oriented, Alert, Motor Strength 5/5 Integumentary: Yes: Warm - Diagnostic (1) Cocaine dependence Current Visit: Yes Status: Chronic Qualifiers: Substance use status: uncomplicated Qualified Code(s): F14.20 - Cocaine dependence, uncomplicated (2) Alcohol dependence with uncomplicated withdrawal Current Visit: Yes Status: Acute (3) Nicotine dependence Current Visit: Yes Status: Chronic Qualifiers: Nicotine product type: cigarettes Substance use status: uncomplicated Qualified Code(s): F17.210 - Nicotine dependence, cigarettes, uncomplicated Breathalyzer - Breathalyzer Breathalyzer: 0 Urine Drug Screen - Test Device Lot number: [id number] Expiration date: 11/05/20 - Control Is test valid?: Yes - Results Drug screen NEGATIVE: No Urine drug screen results: [facility] Inpatient Rehab Admission - Rehab Decision to Admit Inpatient rehab admission?: No
[2019-02-12] MEDS ORDERED: ALBUTEROL SO4 0.083% IH SOL 2.5 MG/3 ML VIAL.NEB. NEB PRN (13:34)
[2019-02-12] MEDS ORDERED: BENZOCAINE 20 % GEL TUBE MM PRN (13:36)
[2019-02-12] MEDS ORDERED: ACETAMINOPHEN 325 MG TABLET (FP) PO PRN ×2 (13:47)
[2019-02-12] MEDS ORDERED: BISMUTH SUBSALICYLATE 262 MG/15 ML BTL PO PRN (13:47)
[2019-02-12] MEDS ORDERED: MAGNESIUM HYDROX 2400MG/30ML ORAL SUSPENSION 30 ML CUP PO PRN (13:47)
[2019-02-12] MEDS ORDERED: MAG HYDROX/AL HYDROX/SIMETH 30 ML UNIT-DOSE CUP PO PRN (13:47)
[2019-02-12] MEDS ORDERED: diazePAM 5 MG TABLET PO PRN (13:47)
[2019-02-12] MEDS ORDERED: MENTHOL/PHENOL 1 EACH UD MM PRN (13:47)
[2019-02-12] MEDS ORDERED: MAGNESIUM CITRATE 300 ML BOTTLE PO PRN (13:47)
[2019-02-12] MEDS ORDERED: AMMONIUM LACTATE 12% LOTION 225 GM BOTTLE TP PRN (13:52)
[2019-02-12] MEDS ORDERED: chlordiazePOXIDE HCL 10 MG CAPSULE PO PRN (13:55)
[2019-02-12] MEDS ORDERED: diazePAM 5 MG TABLET PO SCH (14:00)
[2019-02-12] MEDS: COLLOIDAL OATMEAL 1 BAR EACH TP PRN (17:54)
[2019-02-12] MEDS: chlordiazePOXIDE HCL 25 MG CAPSULE PO SCH (21:32)
[2019-02-12] MEDS: BUDESONIDE/FORMETEROL FUMARATE 160/4.5 mcg INHALER IH SCH (21:33)
[2019-02-12] MEDS: TOLNAFTATE 1% CREAM 15 GM TUBE TP SCH (21:33)
[2019-02-12] MEDS: MONTELUKAST NA 10 MG TABLET PO SCH (21:33)
[2019-02-12] MEDS: THIAMINE HCL 100 MG TABLET (FP) PO SCH (21:34)
[2019-02-12] MEDS: AMOXICILLIN 500 MG CAPSULE (FP) PO SCH (22:24)
[2019-02-12] MEDS: MELATONIN 5 MG TABLETS PO PRN (22:24)
[2019-02-12] MEDS: hydrOXYzine PAMOATE 25 MG CAPSULE (FP) PO PRN (23:40)
[2019-02-13] MEDS: chlordiazePOXIDE HCL 25 MG CAPSULE PO SCH ×2 (06:14→14:32)
[2019-02-13] MEDS ORDERED: NICOTINE POLACRILEX 4 MG GUM BUC PRN (09:20)
--- NOTE | 2019-02-13 09:28 | PN ---
S CIWA - CIWA Score Nausea/Vomitin-No Nausea/No Vomiting Muscle Tremors: 2 Anxiety: 2 Agitation: 2 Paroxysmal Sweats: 2 Orientation: 0-Oriented Tacttile Disturbances: 0-None Auditory Disturbances: 0-None Visual Disturbances: 0-None Headache: 2-Mild CIWA-Ar Total Score: 10 BHS Progress Note (SOAP) Subjective: c/o sweats, headache, dry skin, mild shakes, gum pain, and anxiety. Objective: 02/13/19 09:26 Vital Signs 02/13/19 02/13/19 02/13/19 01:43 03:30 06:19 Temperature 97 F L Pulse Rate 70 Respiratory 18 18 16 Rate Blood Pressure 124/86 Labs pending. Assessment: 02/13/19 09:26 AOX3, in no respiratory distress, full rom, ambulating in the unit. Withdrawal symptoms. mild inflammed gum dry skin 02/13/19 09:28 Plan: continue detox increase fluids peridex mouth rinse Eucerin for dry skin
[2019-02-13] MEDS: PANTOPRAZOLE 20 MG TABLET (FP) PO SCH (10:01)
[2019-02-13] MEDS: BUDESONIDE/FORMETEROL FUMARATE 160/4.5 mcg INHALER IH SCH ×2 (10:01→21:31)
[2019-02-13] MEDS: PRENATAL VITAMINS W/ FOLIC ACID TABLET (FP) PO SCH (10:01)
[2019-02-13] MEDS: HYDROCHLOROTHIAZIDE 12.5 MG CAPSULE (FP) PO SCH (10:02)
[2019-02-13] MEDS: TOLNAFTATE 1% CREAM 15 GM TUBE TP SCH ×2 (10:02→21:32)
[2019-02-13] MEDS: ALBUTEROL SO4 8 GM HFA INHALER IH PRN (10:05)
[2019-02-13] MEDS: ASCORBIC ACID 500 MG TABLET (FP) PO SCH (10:06)
[2019-02-13] MEDS: ARTIFICIAL TEARS (POLYVINYL ALCOHOL) OPTH DROPS OU PRN (10:06)
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
[2019-02-13] MEDS: CHLORHEXIDINE GLUCONATE 0.12% 15ML CUP MM SCH ×2 (11:19→21:30)
[2019-02-13] MEDS: ASPIRIN 81 MG CHEWABLE TABLETS PO SCH (11:19)
[2019-02-13] MEDS: AMOXICILLIN 500 MG CAPSULE (FP) PO SCH ×2 (11:19→21:30)
[2019-02-13] MEDS: NICOTINE 21 MG/24 HOURS TOPICAL PATCH TD SCH (11:21)
[2019-02-13] MEDS ORDERED: diazePAM 5 MG TABLET PO SCH (14:00)
[2019-02-13] MEDS: MINERAL OIL/PETROLAT/WATER TOPICAL CREAM 113 GM JAR TP SCH ×2 (14:31→21:32)
[2019-02-13] MEDS: chlordiazePOXIDE 5 MG CAPSULE PO SCH (21:29)
[2019-02-13] MEDS: THIAMINE HCL 100 MG TABLET (FP) PO SCH (21:29)
[2019-02-13] MEDS: MONTELUKAST NA 10 MG TABLET PO SCH (21:30)
[2019-02-13] MEDS: MELATONIN 5 MG TABLETS PO PRN (21:36)
[2019-02-13] MEDS: QUEtiapine FUMARATE 100 MG TABLET (FP) PO SCH (22:39)
[2019-02-13] MEDS: IBUPROFEN 400 MG TABLET (FP) PO PRN (22:54)
[2019-02-14] MEDS ORDERED: diazePAM 5 MG TABLET PO ONE (06:00)
[2019-02-14] MEDS: chlordiazePOXIDE 5 MG CAPSULE PO SCH ×2 (06:54→14:35)
[2019-02-14] MEDS: ASPIRIN 81 MG CHEWABLE TABLETS PO SCH (10:22)
[2019-02-14] MEDS: PRENATAL VITAMINS W/ FOLIC ACID TABLET (FP) PO SCH (10:22)
[2019-02-14] MEDS: PANTOPRAZOLE 20 MG TABLET (FP) PO SCH (10:22)
[2019-02-14] MEDS: HYDROCHLOROTHIAZIDE 12.5 MG CAPSULE (FP) PO SCH (10:22)
[2019-02-14] MEDS: AMOXICILLIN 500 MG CAPSULE (FP) PO SCH ×2 (10:22→22:02)
[2019-02-14] MEDS: BUDESONIDE/FORMETEROL FUMARATE 160/4.5 mcg INHALER IH SCH ×2 (10:23→22:03)
[2019-02-14] MEDS: NICOTINE 21 MG/24 HOURS TOPICAL PATCH TD SCH (10:23)
[2019-02-14] MEDS: ALBUTEROL SO4 8 GM HFA INHALER IH PRN (10:23)
[2019-02-14] MEDS: CHLORHEXIDINE GLUCONATE 0.12% 15ML CUP MM SCH ×2 (10:23→22:03)
[2019-02-14] MEDS: ARTIFICIAL TEARS (POLYVINYL ALCOHOL) OPTH DROPS OU PRN (10:48)
[2019-02-14] MEDS: TOLNAFTATE 1% CREAM 15 GM TUBE TP SCH ×2 (10:48→22:04)
[2019-02-14] MEDS: ASCORBIC ACID 500 MG TABLET (FP) PO SCH (10:48)
--- NOTE | 2019-02-14 11:14 | PN ---
[facility] CIWA - CIWA Score Nausea/Vomitin-No Nausea/No Vomiting Muscle Tremors: 2 Anxiety: 2 Agitation: 2 Paroxysmal Sweats: No Perspiration Orientation: 0-Oriented Tacttile Disturbances: 1-Very Mild Itch/Numbness Auditory Disturbances: 0-None Visual Disturbances: 0-None Headache: 0-None Present CIWA-Ar Total Score: 7 [facility] Progress Note (SOAP) Subjective: feeling better today patient wants to go to [facility] for aftercare itchy skin encourage administer eucerin cream Objective: 02/14/19 11:16 Vital Signs Temperature 97.1 F L 02/14/19 09:19 Pulse Rate 69 02/14/19 09:19 Respiratory Rate 18 02/14/19 09:19 Blood Pressure 123/82 02/14/19 09:19 O2 Sat by Pulse Oximetry (%) Laboratory Last Values POC Glucometer 94 UNITS (80-120) 02/14/19 06:53 RPR Titer Nonreactive (NONREACTIVE) 02/13/19 10:20 02/14/19 11:16 see 01/2019 lab result Assessment: 02/14/19 11:16 alcohol withdrawal sx Plan: continue detox
[2019-02-14] MEDS ORDERED: cloNIDine HCL 0.1 MG TABLET PO PRN (12:12)
[2019-02-14] MEDS: MINERAL OIL/PETROLAT/WATER TOPICAL CREAM 113 GM JAR TP SCH ×2 (14:33→22:03)
[2019-02-14] MEDS: IBUPROFEN 400 MG TABLET (FP) PO PRN (17:47)
[2019-02-14] MEDS: hydrOXYzine PAMOATE 25 MG CAPSULE (FP) PO PRN (17:48)
[2019-02-14] MEDS: METHOCARBAMOL 500 MG TABLET PO PRN ×2 (18:43→23:01)
[2019-02-14] MEDS ORDERED: METHYL SALICYLATE/MENTHOL OINT 30 GM TUBE TP PRN (20:25)
[2019-02-14] MEDS ORDERED: METHYL SALICYLATE/MENTHOL OINT 30 GM TUBE TP SCH (22:00)
[2019-02-14] MEDS: MONTELUKAST NA 10 MG TABLET PO SCH (22:02)
[2019-02-14] MEDS: QUEtiapine FUMARATE 100 MG TABLET (FP) PO SCH (22:02)
[2019-02-14] MEDS: chlordiazePOXIDE HCL 10 MG CAPSULE PO SCH (22:02)
[2019-02-14] MEDS: THIAMINE HCL 100 MG TABLET (FP) PO SCH (22:03)
[2019-02-14] MEDS: MELATONIN 5 MG TABLETS PO PRN (22:59)
[2019-02-14] MEDS: COLLOIDAL OATMEAL 1 BAR EACH TP PRN (23:00)
[2019-02-15] MEDS: chlordiazePOXIDE HCL 10 MG CAPSULE PO SCH (06:08)
[2019-02-15 09:09] VITALS: BP 114/77; PULSE 80; TEMP 96.7
[2019-02-15] MEDS: ARTIFICIAL TEARS (POLYVINYL ALCOHOL) OPTH DROPS OU PRN (10:21)
[2019-02-15] MEDS: BUDESONIDE/FORMETEROL FUMARATE 160/4.5 mcg INHALER IH SCH (10:21)
[2019-02-15] MEDS: ASPIRIN 81 MG CHEWABLE TABLETS PO SCH (10:22)
[2019-02-15] MEDS: ASCORBIC ACID 500 MG TABLET (FP) PO SCH (10:22)
[2019-02-15] MEDS: AMOXICILLIN 500 MG CAPSULE (FP) PO SCH (10:22)
[2019-02-15] MEDS: NICOTINE 21 MG/24 HOURS TOPICAL PATCH TD SCH (10:23)
[2019-02-15] MEDS: CHLORHEXIDINE GLUCONATE 0.12% 15ML CUP MM SCH (10:23)
[2019-02-15] MEDS: HYDROCHLOROTHIAZIDE 12.5 MG CAPSULE (FP) PO SCH (10:24)
[2019-02-15] MEDS: TOLNAFTATE 1% CREAM 15 GM TUBE TP SCH (10:24)
[2019-02-15] MEDS: PANTOPRAZOLE 20 MG TABLET (FP) PO SCH (10:24)
[2019-02-15] MEDS: PRENATAL VITAMINS W/ FOLIC ACID TABLET (FP) PO SCH (10:25)
[2019-02-15] MEDS: MINERAL OIL/PETROLAT/WATER TOPICAL CREAM 113 GM JAR TP SCH (10:25)
--- NOTE | 2019-02-15 14:24 | DS ---
[facility] Detox Discharge Summary Admission Date: 02/12/19 Discharge Date: 02/15/19 - History Present History: Alcohol Dependence Additional Comments: 58 years old female admitted on 02/12/19 for alcohol withdrawal stabilization completed detox regimen aftercare [facility] Pertinent Past History: bring in medication list and lab report to aftercare appointment - Physical Exam Results Vital Signs: Vital Signs Temperature 96.7 F L 02/15/19 09:08 Pulse Rate 80 02/15/19 09:08 Respiratory Rate 18 02/15/19 09:08 Blood Pressure 114/77 02/15/19 09:08 O2 Sat by Pulse Oximetry (%) Pertinent Admission Physical Exam Findings: alcohol withdrawal sx Laboratory Last Values POC Glucometer 129 UNITS (80-120) 02/15/19 07:36 POC Urine HCG, Qual Negative 02/12/19 13:01 RPR Titer Nonreactive (NONREACTIVE) 02/13/19 10:20 Hep C Ab Diagnostic <0.1 s/co ratio (0.0-0.9) 02/14/19 05:56 HIV 1&2 Antibody Screen Negative 02/14/19 05:55 HIV P24 Antigen Negative 02/14/19 05:55 Laboratory Last Values lab see 12/03/2018 result - Treatment Hospital Course: Detox Protocol Followed, Detoxed Safely, Responded well, Discharged Condition Good, Rehab Referral Accepted Patient has Accepted a Rehab Referral to: [facility] - Medication Discharge Medications: Ambulatory Orders Fluticasone/Salmeterol [Advair 250-50 Diskus] 1 each IH BID #1 disk.w.dev Naltrexone HCl 50 mg PO DAILY #30 tablet 12/14/18 Ketotifen Fumarate [Itchy Eye] 5 ml OP BID 01/13/19 Albuterol Sulfate Inhaler - [Ventolin HFA Inhaler -] 2 puff IH Q4H PRN #1 inhaler 01/19/19 Amlodipine Besylate [Norvasc -] 5 mg PO DAILY #14 tablet 01/19/19 Aspirin [ASA -] 81 mg PO DAILY 14 Days #14 tab.chew 01/19/19 Budesonide/Formeterol Fumarate [SYMBICORT 160/4.5mcg -] 2 puff IH BID #1 inhaler 01/19/19 Hydrochlorothiazide [Hctz -] 12.5 mg PO DAILY #14 cap 01/19/19 Montelukast Na [Singulair -] 10 mg PO HS #14 tablet 01/19/19 Pantoprazole Sodium [Protonix -] 20 mg PO DAILY #14 tablet.ec 01/19/19 Quetiapine Fumarate [Seroquel] 100 mg PO HS #30 tablet 01/19/19 Tolnaftate 1% Cream [Tinactin 1% Cream -] 1 applic TP BID #1 cream..g. 01/19/19 Ascorbate Calcium [Vitamin C] 500 mg PO DAILY 02/12/19 Folic Acid 1 mg PO DAILY 02/12/19 Multivitamin [Multiple Vitamins] 1 each PO DAILY 02/12/19 Thiamine Mononitrate [Vitamin B-1] 100 mg PO DAILY 02/12/19 - Diagnosis (1) Alcohol dependence with uncomplicated withdrawal Status: Acute (2) Asthma Status: Chronic Qualifiers: Asthma severity: mild Asthma persistence: intermittent Asthma complication type: uncomplicated Qualified Code(s): J45.20 - Mild intermittent asthma, uncomplicated (3) COPD (chronic obstructive pulmonary disease) Status: Chronic Qualifiers: COPD type: emphysema Emphysema type: other Qualified Code(s): J43.8 - Other emphysema (4) GERD (gastroesophageal reflux disease) Status: Chronic Qualifiers: Esophagitis presence: without esophagitis Qualified Code(s): K21.9 - Gastro -esophageal reflux disease without esophagitis (5) Hypertension Status: Chronic Qualifiers: Hypertension type: unspecified Qualified Code(s): I10 - Essential (primary ) hypertension (6) Nicotine dependence Status: Acute Qualifiers: Nicotine product type: cigarettes Substance use status: in withdrawal Qualified Code(s): F17.213 - Nicotine dependence, cigarettes, with withdrawal (7) Substance induced mood disorder Status: Suspected (8) Positive PPD Status: Resolved - AMA Did Patient Leave Against Medical Advice: No
== END 2019-02-15 12:43 | disposition other institution (70) | DRG 774 ==
LOC: YASAS 10:45 → Y3N 14:35
PROVIDERS: ADMIT Surgery; ATTEND Surgery
PROC: HZ2ZZZZ Detoxification Services for Substance Abuse Treatment (ICD-10-PCS; principal; 2019-02-12)
DX: F10.230 Alcohol dependence with withdrawal, uncomplicated (principal); F14.20 Cocaine dependence, uncomplicated; F17.213 Nicotine dependence, cigarettes, with withdrawal; F31.9 Bipolar disorder, unspecified; F25.9 Schizoaffective disorder, unspecified; F19.24 Other psychoactive substance dependence with psychoactive substance-induced mood disorder; I10 Essential (primary) hypertension; K21.9 Gastro-esophageal reflux disease without esophagitis; J43.8 Other emphysema; J45.20 Mild intermittent asthma, uncomplicated; D64.9 Anemia, unspecified; G47.00 Insomnia, unspecified; M17.0 Bilateral primary osteoarthritis of knee; R76.11 Nonspecific reaction to tuberculin skin test without active tuberculosis; Z99.89 Dependence on other enabling machines and devices
CPT/HCPCS: 36415; 81025; 82962; 86593; 86803; 87389; J0735

== ENCOUNTER 2019-03-19 13:55 | Inpatient (IN) | payer OTHER ==
[2019-03-19 15:14] VITALS: BMI 31.5
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
[2019-03-19] MEDS ORDERED: guaiFENesin 200 MG/10 ML 10 ML UNIT-DOSE CUPS PO PRN (18:11)
[2019-03-19] MEDS ORDERED: P-EPHED 60MG/TRIPROLIDI 2.5MG TABLET PO PRN (18:11)
[2019-03-19] MEDS ORDERED: MAG HYDROX/AL HYDROX/SIMETH 30 ML UNIT-DOSE CUP PO PRN (18:11)
[2019-03-19] MEDS ORDERED: MENTHOL/PHENOL 1 EACH UD MM PRN (18:11)
[2019-03-19] MEDS ORDERED: MAGNESIUM HYDROX 2400MG/30ML ORAL SUSPENSION 30 ML CUP PO PRN (18:11)
[2019-03-19] MEDS ORDERED: MAGNESIUM CITRATE 300 ML BOTTLE PO PRN (18:11)
[2019-03-19] MEDS ORDERED: LOPERAMIDE HCL 2 MG CAPSULE PO PRN (18:11)
[2019-03-19] MEDS ORDERED: ALBUTEROL SO4 8 GM HFA INHALER IH PRN (18:12)
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
[2019-03-19] MEDS: THIAMINE HCL 100 MG TABLET (FP) PO SCH (21:14)
[2019-03-19] MEDS: ASPIRIN 81 MG CHEWABLE TABLETS PO SCH (21:15)
[2019-03-19] MEDS: amLODIPine BESYLATE 5 MG TABLET (FP) PO SCH (21:15)
[2019-03-19] MEDS: MONTELUKAST NA 10 MG TABLET PO SCH (21:15)
[2019-03-19] MEDS: HYDROCHLOROTHIAZIDE 12.5 MG CAPSULE (FP) PO SCH (21:15)
[2019-03-19] MEDS: NICOTINE 7 MG/24 HOURS TOPICAL PATCH TD SCH (21:16)
[2019-03-19] MEDS: LIDOCAINE PATCH REMOVAL MC SCH (21:16)
[2019-03-19] MEDS: MELATONIN 5 MG TABLETS PO PRN (21:16)
[2019-03-19] MEDS: BUDESONIDE/FORMETEROL FUMARATE 160/4.5 mcg INHALER IH SCH (21:17)
[2019-03-19] MEDS: COLLOIDAL OATMEAL 1 BAR EACH TP PRN (21:18)
[2019-03-19] MEDS: IBUPROFEN 400 MG TABLET (FP) PO PRN (21:18)
[2019-03-20] MEDS: ACETAMINOPHEN 325 MG TABLET (FP) PO PRN (05:38)
[2019-03-20] MEDS ORDERED: PT OWN MED DRAWER 7, Y5N ONE ×2 (08:25→21:30)
[2019-03-20] MEDS: NICOTINE 7 MG/24 HOURS TOPICAL PATCH TD SCH (09:10)
[2019-03-20] MEDS: HYDROCHLOROTHIAZIDE 12.5 MG CAPSULE (FP) PO SCH (09:10)
[2019-03-20] MEDS: ASPIRIN 81 MG CHEWABLE TABLETS PO SCH (09:10)
[2019-03-20] MEDS: amLODIPine BESYLATE 5 MG TABLET (FP) PO SCH (09:11)
[2019-03-20] MEDS: PRENATAL VITAMINS W/ FOLIC ACID TABLET (FP) PO SCH (09:11)
[2019-03-20] MEDS: PANTOPRAZOLE 20 MG TABLET (FP) PO SCH (09:11)
[2019-03-20] MEDS: LIDOCAINE 5% TOPICAL PATCH TP PRN (09:12)
[2019-03-20] MEDS: IBUPROFEN 400 MG TABLET (FP) PO PRN (09:18)
[2019-03-20] MEDS ORDERED: MINERAL OIL/PETROLAT/WATER TOPICAL CREAM 454 GM JAR TP PRN (10:20)
[2019-03-20 10:35] LABS: ALBUMIN 3.6 g/dl (3.4-5.0); BILIRUBIN,TOTAL 0.4 mg/dL (0.2-1); BLOOD UREA NITROGEN 13.4 mg/dL (7-18); CALCIUM 8.7 mg/dL (8.5-10.1); HEMATOCRIT 39.5 % (32.4-45.2); HEMOGLOBIN 13.3 GM/dL (10.7-15.3); MCH 32.6 pg (25.7-33.7); MCHC 33.6 g/dl (32.0-36.0); MEAN PLT VOLUME 7.7 fl (7.5-11.1); POTASSIUM 4.2 mmol/L (3.5-5.1); RBC 4.07 M/mm3 (3.60-5.2); RDW 14.9 % (11.6-15.6); TOT PROT 7.2 g/dl (6.4-8.2); WHITE BLOOD COUNT 4.9 K/mm3 (4.0-10.0)
[2019-03-20 10:48] LABS: PLATELET COUNT 260 K/MM3 (134-434)
[2019-03-20] MEDS: BUDESONIDE/FORMETEROL FUMARATE 160/4.5 mcg INHALER IH SCH ×2 (10:56→21:33)
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
[2019-03-20 12:45] LABS: EPI CELLS 2.1 /HPF (0-5/HPF); HYALINE CASTS 3 /lpf (0-8); URINE APPEARANCE CLOUDY; URINE BACTERIA 4464.9 /hpf (NEGATIVE); URINE BILIRUBIN NEGATIVE (NEGATIVE); URINE COLOR YELLOW; URINE GLUCOSE (UA) NEGATIVE (NEGATIVE); URINE KETONE NEGATIVE (NEGATIVE); URINE LEUK ESTERASE 1+ (NEGATIVE); URINE NITRITE POSITIVE (NEGATIVE); URINE PROTEIN NEGATIVE (NEGATIVE); URINE RBC 2 /hpf (0-4); URINE UROBILINOGEN 0.2 mg/dL (0.2-1.0); URINE WBC 25 /hpf (0-5)
[2019-03-20] MEDS: THIAMINE HCL 100 MG TABLET (FP) PO SCH (21:28)
[2019-03-20] MEDS: MONTELUKAST NA 10 MG TABLET PO SCH (21:28)
[2019-03-20] MEDS: LIDOCAINE PATCH REMOVAL MC SCH (21:28)
[2019-03-20] MEDS: QUEtiapine FUMARATE 50 MG TABLET PO SCH (21:31)
[2019-03-20] MEDS: ATORVASTATIN CA 10 MG TABLET (FP) PO SCH (21:31)
[2019-03-20] MEDS: MELATONIN 5 MG TABLETS PO PRN (21:32)
[2019-03-20] MEDS: CHLORHEXIDINE GLUCONATE 0.12% 15ML CUP MM SCH (21:33)
[2019-03-20] MEDS: METHYL SALICYLATE/MENTHOL OINT 30 GM TUBE TP SCH (21:33)
[2019-03-21] MEDS: IBUPROFEN 400 MG TABLET (FP) PO PRN ×2 (00:20→09:51)
[2019-03-21] MEDS ORDERED: PT OWN MED DRAWER 7, Y5N ONE (08:55)
[2019-03-21] MEDS: ASPIRIN 81 MG CHEWABLE TABLETS PO SCH (09:48)
[2019-03-21] MEDS: NICOTINE 7 MG/24 HOURS TOPICAL PATCH TD SCH (09:48)
[2019-03-21] MEDS: PANTOPRAZOLE 20 MG TABLET (FP) PO SCH (09:48)
[2019-03-21] MEDS: HYDROCHLOROTHIAZIDE 12.5 MG CAPSULE (FP) PO SCH (09:48)
[2019-03-21] MEDS: PRENATAL VITAMINS W/ FOLIC ACID TABLET (FP) PO SCH (09:48)
[2019-03-21] MEDS: SERTRALINE HCL 50 MG TABLET (FP) PO SCH (09:48)
[2019-03-21] MEDS: amLODIPine BESYLATE 5 MG TABLET (FP) PO SCH (09:48)
[2019-03-21] MEDS: BUDESONIDE/FORMETEROL FUMARATE 160/4.5 mcg INHALER IH SCH ×2 (09:50→21:40)
[2019-03-21] MEDS: METHYL SALICYLATE/MENTHOL OINT 30 GM TUBE TP SCH ×2 (09:52→21:40)
[2019-03-21] MEDS: CHLORHEXIDINE GLUCONATE 0.12% 15ML CUP MM SCH ×2 (09:53→21:40)
[2019-03-21] MEDS: QUEtiapine FUMARATE 50 MG TABLET PO SCH (21:40)
[2019-03-21] MEDS: ATORVASTATIN CA 10 MG TABLET (FP) PO SCH (21:40)
[2019-03-21] MEDS: LIDOCAINE PATCH REMOVAL MC SCH (21:40)
[2019-03-21] MEDS: MONTELUKAST NA 10 MG TABLET PO SCH (21:40)
[2019-03-21] MEDS: THIAMINE HCL 100 MG TABLET (FP) PO SCH (21:40)
[2019-03-21] MEDS: MELATONIN 5 MG TABLETS PO PRN (21:41)
[2019-03-22] MEDS ORDERED: PT OWN MED DRAWER 7, Y5N ONE (09:15)
[2019-03-22] MEDS: NICOTINE 7 MG/24 HOURS TOPICAL PATCH TD SCH (10:17)
[2019-03-22] MEDS: ASPIRIN 81 MG CHEWABLE TABLETS PO SCH (10:18)
[2019-03-22] MEDS: SERTRALINE HCL 50 MG TABLET (FP) PO SCH (10:18)
[2019-03-22] MEDS: PRENATAL VITAMINS W/ FOLIC ACID TABLET (FP) PO SCH (10:18)
[2019-03-22] MEDS: HYDROCHLOROTHIAZIDE 12.5 MG CAPSULE (FP) PO SCH (10:18)
[2019-03-22] MEDS: amLODIPine BESYLATE 5 MG TABLET (FP) PO SCH (10:18)
[2019-03-22] MEDS: PANTOPRAZOLE 20 MG TABLET (FP) PO SCH (10:19)
[2019-03-22] MEDS: BUDESONIDE/FORMETEROL FUMARATE 160/4.5 mcg INHALER IH SCH ×2 (10:21→21:39)
[2019-03-22] MEDS: METHYL SALICYLATE/MENTHOL OINT 30 GM TUBE TP SCH ×2 (10:21→21:40)
[2019-03-22] MEDS: CHLORHEXIDINE GLUCONATE 0.12% 15ML CUP MM SCH ×2 (10:21→21:40)
[2019-03-22] MEDS ORDERED: BENZOCAINE 20 % GEL TUBE MM PRN (13:30)
--- NOTE | 2019-03-22 13:30 | PN ---
[facility] Progress Note Note: PATIENT SEEN FOR ORAL GUM PAIN AND ABNORMAL URINE RESULTS. PATIENT HAS HX OF TOOTH DECAY AND UTI. PATIENT C/O TOOTHACHE AND URINARY FREQUENCY/URGENCY X 2 DAYS. PATIENT DENIES HAVING FEVER AND PELVIC PAIN. Laboratory Tests 03/19/19 03/20/19 03/20/19 17:17 05:42 07:50 WBC 4.9 RBC 4.07 Hgb 13.3 Hct 39.5 MCV 97.0 H MCH 32.6 MCHC 33.6 RDW 14.9 Plt Count 260 MPV 7.7 Sodium Potassium Chloride Carbon Dioxide Anion Gap BUN Creatinine Est GFR (CKD-EPI)AfAm Est GFR (CKD-EPI)NonAf POC Glucometer 87 Random Glucose Calcium Total Bilirubin AST ALT Alkaline Phosphatase Total Protein Albumin Urine Color Urine Appearance Urine pH Ur Specific [place] Urine Protein Urine Glucose (UA) Urine Ketones Urine Blood Urine Nitrite Urine Bilirubin Urine Urobilinogen Ur Leukocyte Esterase Urine WBC (Auto) Urine RBC (Auto) Urine Casts (Auto) U Epithel Cells (Auto) Urine Bacteria (Auto) POC Urine HCG, Qual Negative RPR Titer 03/20/19 03/20/19 03/20/19 07:50 07:50 09:10 WBC RBC Hgb Hct MCV MCH MCHC RDW Plt Count MPV Sodium 141 Potassium 4.2 Chloride 105 Carbon Dioxide 32 Anion Gap 4 L BUN 13.4 Creatinine 1.0 Est GFR (CKD-EPI)AfAm 71.92 Est GFR (CKD-EPI)NonAf 62.05 POC Glucometer Random Glucose 90 Calcium 8.7 Total Bilirubin 0.4 AST 18 ALT 23 Alkaline Phosphatase 94 Total Protein 7.2 Albumin 3.6 Urine Color Yellow Urine Appearance Cloudy Urine pH 5.0 D Ur Specific [place] 1.020 Urine Protein Negative Urine Glucose (UA) Negative Urine Ketones Negative Urine Blood Negative Urine Nitrite Positive H Urine Bilirubin Negative Urine Urobilinogen 0.2 Ur Leukocyte Esterase 1+ H Urine WBC (Auto) 25 Urine RBC (Auto) 2 Urine Casts (Auto) 3 U Epithel Cells (Auto) 2.1 Urine Bacteria (Auto) 4464.9 POC Urine HCG, Qual RPR Titer Nonreactive 03/21/19 03/22/19 07:46 06:23 WBC RBC Hgb Hct MCV MCH MCHC RDW Plt Count MPV Sodium Potassium Chloride Carbon Dioxide Anion Gap BUN Creatinine Est GFR (CKD-EPI)AfAm Est GFR (CKD-EPI)NonAf POC Glucometer 105 99 Random Glucose Calcium Total Bilirubin AST ALT Alkaline Phosphatase Total Protein Albumin Urine Color Urine Appearance Urine pH Ur Specific [place] Urine Protein Urine Glucose (UA) Urine Ketones Urine Blood Urine Nitrite Urine Bilirubin Urine Urobilinogen Ur Leukocyte Esterase Urine WBC (Auto) Urine RBC (Auto) Urine Casts (Auto) U Epithel Cells (Auto) Urine Bacteria (Auto) POC Urine HCG, Qual RPR Titer Vital Signs Temperature 97.6 F 03/22/19 10:00 Pulse Rate 83 03/22/19 10:00 Respiratory Rate 18 03/22/19 10:00 Blood Pressure 125/74 03/22/19 10:00 O2 Sat by Pulse Oximetry (%) PE: ALERT AND ORIENTED X 3 SKIN WARM AND DRY +PERRLA, EOMS INTACT BL ORAL MUCOSA MOIST, MILD INFLAMMATION OF GUMS SURROUNDING RIGHT LOWER MOLAR, + TOOTH DECAY GI NT, ND NEG CVAT EXT FULL ROM, NO EDEMA AMB AD SCAR A/P: UA + NITRATES/UTI TOOTHACHE, POSSIBLE EARLY TOOTH INFECTION WILL ORDER AMOXICILLIN 500MG PO TID X 7 DAYS ENCOURAGE ORAL FLUIDS ORAL GEL FOR TOOTHACHE/GUM PAIN CONTINUE TO MONITOR CLINICALLY
[2019-03-22] MEDS: AMOXICILLIN 500 MG CAPSULE (FP) PO SCH ×2 (14:26→21:38)
[2019-03-22] MEDS: ATORVASTATIN CA 10 MG TABLET (FP) PO SCH (21:38)
[2019-03-22] MEDS: THIAMINE HCL 100 MG TABLET (FP) PO SCH (21:38)
[2019-03-22] MEDS: MONTELUKAST NA 10 MG TABLET PO SCH (21:38)
[2019-03-22] MEDS: QUEtiapine FUMARATE 50 MG TABLET PO SCH (21:38)
[2019-03-22] MEDS: LIDOCAINE PATCH REMOVAL MC SCH (21:40)
[2019-03-22] MEDS: MELATONIN 5 MG TABLETS PO PRN (23:09)
[2019-03-23] MEDS: AMOXICILLIN 500 MG CAPSULE (FP) PO SCH ×3 (06:52→21:41)
[2019-03-23] MEDS ORDERED: PT OWN MED DRAWER 7, Y5N ONE ×2 (08:50→13:08)
[2019-03-23] MEDS: ASPIRIN 81 MG CHEWABLE TABLETS PO SCH (09:43)
[2019-03-23] MEDS: NICOTINE 7 MG/24 HOURS TOPICAL PATCH TD SCH (09:43)
[2019-03-23] MEDS: METHYL SALICYLATE/MENTHOL OINT 30 GM TUBE TP SCH ×2 (09:43→21:42)
[2019-03-23] MEDS: HYDROCHLOROTHIAZIDE 12.5 MG CAPSULE (FP) PO SCH (09:43)
[2019-03-23] MEDS: amLODIPine BESYLATE 5 MG TABLET (FP) PO SCH (09:44)
[2019-03-23] MEDS: CHLORHEXIDINE GLUCONATE 0.12% 15ML CUP MM SCH ×2 (09:44→21:42)
[2019-03-23] MEDS: PRENATAL VITAMINS W/ FOLIC ACID TABLET (FP) PO SCH (09:44)
[2019-03-23] MEDS: BUDESONIDE/FORMETEROL FUMARATE 160/4.5 mcg INHALER IH SCH ×2 (09:45→21:41)
[2019-03-23] MEDS: SERTRALINE HCL 50 MG TABLET (FP) PO SCH (09:45)
[2019-03-23] MEDS: PANTOPRAZOLE 20 MG TABLET (FP) PO SCH (09:45)
[2019-03-23] MEDS: LIDOCAINE 5% TOPICAL PATCH TP PRN (09:46)
[2019-03-23] MEDS ORDERED: FOLIC ACID 1 MG TABLET (FP) PO SCH (10:00)
[2019-03-23] MEDS: ASCORBIC ACID 500 MG TABLET (FP) PO SCH (10:50)
[2019-03-23] MEDS: MONTELUKAST NA 10 MG TABLET PO SCH (21:40)
[2019-03-23] MEDS: THIAMINE HCL 100 MG TABLET (FP) PO SCH (21:40)
[2019-03-23] MEDS: ATORVASTATIN CA 10 MG TABLET (FP) PO SCH (21:41)
[2019-03-23] MEDS: QUEtiapine FUMARATE 50 MG TABLET PO SCH (21:41)
[2019-03-23] MEDS: LIDOCAINE PATCH REMOVAL MC SCH (21:42)
[2019-03-23] MEDS: IBUPROFEN 400 MG TABLET (FP) PO PRN (23:46)
[2019-03-24] MEDS: AMOXICILLIN 500 MG CAPSULE (FP) PO SCH ×3 (06:37→21:29)
[2019-03-24] MEDS: LIDOCAINE 5% TOPICAL PATCH TP SCH (10:02)
[2019-03-24] MEDS: NICOTINE 7 MG/24 HOURS TOPICAL PATCH TD SCH (10:02)
[2019-03-24] MEDS: ASPIRIN 81 MG CHEWABLE TABLETS PO SCH (10:03)
[2019-03-24] MEDS: PANTOPRAZOLE 20 MG TABLET (FP) PO SCH (10:04)
[2019-03-24] MEDS: amLODIPine BESYLATE 5 MG TABLET (FP) PO SCH (10:04)
[2019-03-24] MEDS: BUDESONIDE/FORMETEROL FUMARATE 160/4.5 mcg INHALER IH SCH ×2 (10:04→21:31)
[2019-03-24] MEDS: SERTRALINE HCL 50 MG TABLET (FP) PO SCH (10:04)
[2019-03-24] MEDS: PRENATAL VITAMINS W/ FOLIC ACID TABLET (FP) PO SCH (10:04)
[2019-03-24] MEDS: HYDROCHLOROTHIAZIDE 12.5 MG CAPSULE (FP) PO SCH (10:04)
[2019-03-24] MEDS: ASCORBIC ACID 500 MG TABLET (FP) PO SCH (10:05)
[2019-03-24] MEDS: CHLORHEXIDINE GLUCONATE 0.12% 15ML CUP MM SCH ×2 (10:05→21:31)
[2019-03-24] MEDS: METHYL SALICYLATE/MENTHOL OINT 30 GM TUBE TP SCH ×2 (10:06→21:31)
[2019-03-24] MEDS: NICOTINE POLACRILEX 2 MG GUM BC PRN (14:06)
[2019-03-24] MEDS: QUEtiapine FUMARATE 50 MG TABLET PO SCH (21:29)
[2019-03-24] MEDS: MONTELUKAST NA 10 MG TABLET PO SCH (21:29)
[2019-03-24] MEDS: ATORVASTATIN CA 10 MG TABLET (FP) PO SCH (21:29)
[2019-03-24] MEDS: THIAMINE HCL 100 MG TABLET (FP) PO SCH (21:29)
[2019-03-24] MEDS: LIDOCAINE PATCH REMOVAL MC SCH (21:31)
[2019-03-25] MEDS: AMOXICILLIN 500 MG CAPSULE (FP) PO SCH ×3 (06:49→21:34)
[2019-03-25] MEDS: ASPIRIN 81 MG CHEWABLE TABLETS PO SCH (09:25)
[2019-03-25] MEDS: HYDROCHLOROTHIAZIDE 12.5 MG CAPSULE (FP) PO SCH (09:26)
[2019-03-25] MEDS: LIDOCAINE 5% TOPICAL PATCH TP SCH (09:26)
[2019-03-25] MEDS: METHYL SALICYLATE/MENTHOL OINT 30 GM TUBE TP SCH ×2 (09:26→21:39)
[2019-03-25] MEDS: NICOTINE 7 MG/24 HOURS TOPICAL PATCH TD SCH (09:26)
[2019-03-25] MEDS: amLODIPine BESYLATE 5 MG TABLET (FP) PO SCH (09:27)
[2019-03-25] MEDS: PANTOPRAZOLE 20 MG TABLET (FP) PO SCH (09:27)
[2019-03-25] MEDS: CHLORHEXIDINE GLUCONATE 0.12% 15ML CUP MM SCH ×2 (09:27→21:38)
[2019-03-25] MEDS: PRENATAL VITAMINS W/ FOLIC ACID TABLET (FP) PO SCH (09:27)
[2019-03-25] MEDS: ASCORBIC ACID 500 MG TABLET (FP) PO SCH (09:28)
[2019-03-25] MEDS: SERTRALINE HCL 50 MG TABLET (FP) PO SCH (09:28)
[2019-03-25] MEDS: BUDESONIDE/FORMETEROL FUMARATE 160/4.5 mcg INHALER IH SCH ×2 (09:28→21:38)
[2019-03-25] MEDS: NICOTINE POLACRILEX 2 MG GUM BC PRN (09:29)
--- NOTE | 2019-03-25 09:40 | PN ---
[facility] Progress Note Note: Pt was spoken to this morning re: blood sugar monitoring. Pt requested to decline BGM per nursing staff. After speaking to patient, she agreed to continue with monitoring. PMHx of DM but not on DM med. Vital Signs - 24 hr 03/25/19 03/25/19 03/25/19 03:30 07:33 09:19 Temperature 97.6 F Pulse Rate 93 H 98 H Respiratory 18 18 Rate Blood Pressure 124/79 158/89 Laboratory Tests 03/19/19 03/20/19 03/20/19 17:17 05:42 07:50 WBC 4.9 RBC 4.07 Hgb 13.3 Hct 39.5 MCV 97.0 H MCH 32.6 MCHC 33.6 RDW 14.9 Plt Count 260 MPV 7.7 Sodium Potassium Chloride Carbon Dioxide Anion Gap BUN Creatinine Est GFR (CKD-EPI)AfAm Est GFR (CKD-EPI)NonAf POC Glucometer 87 Random Glucose Calcium Total Bilirubin AST ALT Alkaline Phosphatase Total Protein Albumin Urine Color Urine Appearance Urine pH Ur Specific [place] Urine Protein Urine Glucose (UA) Urine Ketones Urine Blood Urine Nitrite Urine Bilirubin Urine Urobilinogen Ur Leukocyte Esterase Urine WBC (Auto) Urine RBC (Auto) Urine Casts (Auto) U Epithel Cells (Auto) Urine Bacteria (Auto) POC Urine HCG, Qual Negative RPR Titer 03/20/19 03/20/19 03/20/19 07:50 07:50 09:10 WBC RBC Hgb Hct MCV MCH MCHC RDW Plt Count MPV Sodium 141 Potassium 4.2 Chloride 105 Carbon Dioxide 32 Anion Gap 4 L BUN 13.4 Creatinine 1.0 Est GFR (CKD-EPI)AfAm 71.92 Est GFR (CKD-EPI)NonAf 62.05 POC Glucometer Random Glucose 90 Calcium 8.7 Total Bilirubin 0.4 AST 18 ALT 23 Alkaline Phosphatase 94 Total Protein 7.2 Albumin 3.6 Urine Color Yellow Urine Appearance Cloudy Urine pH 5.0 D Ur Specific [place] 1.020 Urine Protein Negative Urine Glucose (UA) Negative Urine Ketones Negative Urine Blood Negative Urine Nitrite Positive H Urine Bilirubin Negative Urine Urobilinogen 0.2 Ur Leukocyte Esterase 1+ H Urine WBC (Auto) 25 Urine RBC (Auto) 2 Urine Casts (Auto) 3 U Epithel Cells (Auto) 2.1 Urine Bacteria (Auto) 4464.9 POC Urine HCG, Qual RPR Titer Nonreactive 03/21/19 03/22/19 03/23/19 07:46 06:23 06:51 WBC RBC Hgb Hct MCV MCH MCHC RDW Plt Count MPV Sodium Potassium Chloride Carbon Dioxide Anion Gap BUN Creatinine Est GFR (CKD-EPI)AfAm Est GFR (CKD-EPI)NonAf POC Glucometer 105 99 104 Random Glucose Calcium Total Bilirubin AST ALT Alkaline Phosphatase Total Protein Albumin Urine Color Urine Appearance Urine pH Ur Specific [place] Urine Protein Urine Glucose (UA) Urine Ketones Urine Blood Urine Nitrite Urine Bilirubin Urine Urobilinogen Ur Leukocyte Esterase Urine WBC (Auto) Urine RBC (Auto) Urine Casts (Auto) U Epithel Cells (Auto) Urine Bacteria (Auto) POC Urine HCG, Qual RPR Titer 03/24/19 03/25/19 06:23 06:48 WBC RBC Hgb Hct MCV MCH MCHC RDW Plt Count MPV Sodium Potassium Chloride Carbon Dioxide Anion Gap BUN Creatinine Est GFR (CKD-EPI)AfAm Est GFR (CKD-EPI)NonAf POC Glucometer 115 93 Random Glucose Calcium Total Bilirubin AST ALT Alkaline Phosphatase Total Protein Albumin Urine Color Urine Appearance Urine pH Ur Specific [place] Urine Protein Urine Glucose (UA) Urine Ketones Urine Blood Urine Nitrite Urine Bilirubin Urine Urobilinogen Ur Leukocyte Esterase Urine WBC (Auto) Urine RBC (Auto) Urine Casts (Auto) U Epithel Cells (Auto) Urine Bacteria (Auto) POC Urine HCG, Qual RPR Titer A:Hx Dm Plan:Continue BGM Follow up with PMD with lab results after Rehab treatment.
[2019-03-25] MEDS: CYCLOBENZAPRINE HCL 10 MG TABLET (FP) PO PRN (21:34)
[2019-03-25] MEDS: QUEtiapine FUMARATE 50 MG TABLET PO SCH (21:34)
[2019-03-25] MEDS: ATORVASTATIN CA 10 MG TABLET (FP) PO SCH (21:34)
[2019-03-25] MEDS: MONTELUKAST NA 10 MG TABLET PO SCH (21:34)
[2019-03-25] MEDS: THIAMINE HCL 100 MG TABLET (FP) PO SCH (21:34)
[2019-03-25] MEDS: IBUPROFEN 400 MG TABLET (FP) PO PRN (21:37)
[2019-03-25] MEDS: LIDOCAINE PATCH REMOVAL MC SCH (21:38)
[2019-03-26] MEDS: AMOXICILLIN 500 MG CAPSULE (FP) PO SCH ×3 (06:04→21:19)
[2019-03-26] MEDS ORDERED: PT OWN MED DRAWER 7, Y5N ONE ×3 (09:02→23:00)
--- NOTE | 2019-03-26 10:19 | PN ---
S Progress Note Note: Psychiatric nurse practitioner note: Psychiatric consultation was ordered in error. Patient did not request to be seen.
[2019-03-26] MEDS: ASCORBIC ACID 500 MG TABLET (FP) PO SCH (10:54)
[2019-03-26] MEDS: ASPIRIN 81 MG CHEWABLE TABLETS PO SCH (10:55)
[2019-03-26] MEDS: PANTOPRAZOLE 20 MG TABLET (FP) PO SCH (10:55)
[2019-03-26] MEDS: HYDROCHLOROTHIAZIDE 12.5 MG CAPSULE (FP) PO SCH (10:55)
[2019-03-26] MEDS: NICOTINE 7 MG/24 HOURS TOPICAL PATCH TD SCH (10:56)
[2019-03-26] MEDS: amLODIPine BESYLATE 5 MG TABLET (FP) PO SCH (10:56)
[2019-03-26] MEDS: SERTRALINE HCL 50 MG TABLET (FP) PO SCH (10:56)
[2019-03-26] MEDS: LIDOCAINE 5% TOPICAL PATCH TP SCH (10:56)
[2019-03-26] MEDS: CHLORHEXIDINE GLUCONATE 0.12% 15ML CUP MM SCH (10:57)
[2019-03-26] MEDS: PRENATAL VITAMINS W/ FOLIC ACID TABLET (FP) PO SCH (10:57)
[2019-03-26] MEDS: METHYL SALICYLATE/MENTHOL OINT 30 GM TUBE TP SCH ×2 (10:58→21:19)
[2019-03-26] MEDS: COLLOIDAL OATMEAL 1 BAR EACH TP PRN (10:59)
[2019-03-26] MEDS: BUDESONIDE/FORMETEROL FUMARATE 160/4.5 mcg INHALER IH SCH ×2 (11:00→21:20)
[2019-03-26] MEDS: ATORVASTATIN CA 10 MG TABLET (FP) PO SCH (21:19)
[2019-03-26] MEDS: MONTELUKAST NA 10 MG TABLET PO SCH (21:19)
[2019-03-26] MEDS: THIAMINE HCL 100 MG TABLET (FP) PO SCH (21:19)
[2019-03-26] MEDS: QUEtiapine FUMARATE 50 MG TABLET PO SCH (21:19)
[2019-03-26] MEDS: LIDOCAINE PATCH REMOVAL MC SCH (21:20)
[2019-03-26] MEDS: MELATONIN 5 MG TABLETS PO PRN (21:21)
[2019-03-26] MEDS: CYCLOBENZAPRINE HCL 10 MG TABLET (FP) PO PRN (21:21)
[2019-03-26] MEDS: CHLORHEXIDINE GLUCONATE 118 ML MOUTHWASH MM SCH (21:22)
[2019-03-27] MEDS: AMOXICILLIN 500 MG CAPSULE (FP) PO SCH ×3 (08:05→21:41)
[2019-03-27] MEDS: NICOTINE 7 MG/24 HOURS TOPICAL PATCH TD SCH (09:19)
[2019-03-27] MEDS: LIDOCAINE 5% TOPICAL PATCH TP SCH (09:19)
[2019-03-27] MEDS: PRENATAL VITAMINS W/ FOLIC ACID TABLET (FP) PO SCH (09:20)
[2019-03-27] MEDS: ASCORBIC ACID 500 MG TABLET (FP) PO SCH (09:20)
[2019-03-27] MEDS: BUDESONIDE/FORMETEROL FUMARATE 160/4.5 mcg INHALER IH SCH ×2 (09:21→21:44)
[2019-03-27] MEDS: amLODIPine BESYLATE 5 MG TABLET (FP) PO SCH (09:21)
[2019-03-27] MEDS: PANTOPRAZOLE 20 MG TABLET (FP) PO SCH (09:21)
[2019-03-27] MEDS: SERTRALINE HCL 50 MG TABLET (FP) PO SCH (09:21)
[2019-03-27] MEDS: HYDROCHLOROTHIAZIDE 12.5 MG CAPSULE (FP) PO SCH (09:21)
[2019-03-27] MEDS: ASPIRIN 81 MG CHEWABLE TABLETS PO SCH (09:21)
[2019-03-27] MEDS: CHLORHEXIDINE GLUCONATE 118 ML MOUTHWASH MM SCH ×2 (09:23→21:42)
[2019-03-27] MEDS: METHYL SALICYLATE/MENTHOL OINT 30 GM TUBE TP SCH ×2 (09:23→21:43)
[2019-03-27] MEDS ORDERED: PT OWN MED DRAWER 7, Y5N ONE (10:22)
[2019-03-27] MEDS: ATORVASTATIN CA 10 MG TABLET (FP) PO SCH (21:41)
[2019-03-27] MEDS: QUEtiapine FUMARATE 50 MG TABLET PO SCH (21:41)
[2019-03-27] MEDS: MONTELUKAST NA 10 MG TABLET PO SCH (21:41)
[2019-03-27] MEDS: THIAMINE HCL 100 MG TABLET (FP) PO SCH (21:41)
[2019-03-27] MEDS: MELATONIN 5 MG TABLETS PO PRN (21:42)
[2019-03-27] MEDS: LIDOCAINE PATCH REMOVAL MC SCH (21:42)
[2019-03-28] MEDS: AMOXICILLIN 500 MG CAPSULE (FP) PO SCH ×3 (06:54→21:42)
[2019-03-28] MEDS ORDERED: PT OWN MED DRAWER 7, Y5N ONE (08:47)
[2019-03-28] MEDS: HYDROCHLOROTHIAZIDE 12.5 MG CAPSULE (FP) PO SCH (10:24)
[2019-03-28] MEDS: ASPIRIN 81 MG CHEWABLE TABLETS PO SCH (10:24)
[2019-03-28] MEDS: PRENATAL VITAMINS W/ FOLIC ACID TABLET (FP) PO SCH (10:24)
[2019-03-28] MEDS: amLODIPine BESYLATE 5 MG TABLET (FP) PO SCH (10:24)
[2019-03-28] MEDS: SERTRALINE HCL 50 MG TABLET (FP) PO SCH (10:24)
[2019-03-28] MEDS: PANTOPRAZOLE 20 MG TABLET (FP) PO SCH (10:25)
[2019-03-28] MEDS: BUDESONIDE/FORMETEROL FUMARATE 160/4.5 mcg INHALER IH SCH ×2 (10:25→21:43)
[2019-03-28] MEDS: NICOTINE 7 MG/24 HOURS TOPICAL PATCH TD SCH (10:25)
[2019-03-28] MEDS: ASCORBIC ACID 500 MG TABLET (FP) PO SCH (10:25)
[2019-03-28] MEDS: IBUPROFEN 400 MG TABLET (FP) PO PRN (10:26)
[2019-03-28] MEDS: METHYL SALICYLATE/MENTHOL OINT 30 GM TUBE TP SCH ×2 (10:28→21:44)
[2019-03-28] MEDS: LIDOCAINE 5% TOPICAL PATCH TP SCH (10:28)
[2019-03-28] MEDS: CHLORHEXIDINE GLUCONATE 118 ML MOUTHWASH MM SCH ×2 (10:28→21:43)
[2019-03-28] MEDS: CYCLOBENZAPRINE HCL 10 MG TABLET (FP) PO PRN (21:42)
[2019-03-28] MEDS: THIAMINE HCL 100 MG TABLET (FP) PO SCH (21:42)
[2019-03-28] MEDS: QUEtiapine FUMARATE 50 MG TABLET PO SCH (21:42)
[2019-03-28] MEDS: ATORVASTATIN CA 10 MG TABLET (FP) PO SCH (21:42)
[2019-03-28] MEDS: MONTELUKAST NA 10 MG TABLET PO SCH (21:42)
[2019-03-28] MEDS: LIDOCAINE PATCH REMOVAL MC SCH (21:43)
[2019-03-28] MEDS: MELATONIN 5 MG TABLETS PO PRN (21:43)
--- NOTE | 2019-03-29 06:29 | PN ---
[facility] Progress Note Note: Patient is scheduled for discharge today. Scripts for 30 days supply of medications(Zoloft 50 mg/day, Seroquel 50 mg/hs) are electronically transmitted to [facility] at [address] [place] [id number]
[2019-03-29 06:37] VITALS: BP 117/75; PULSE 100; TEMP 98
[2019-03-29] MEDS: ACETAMINOPHEN 325 MG TABLET (FP) PO PRN (07:36)
[2019-03-29] MEDS: AMOXICILLIN 500 MG CAPSULE (FP) PO SCH (07:36)
[2019-03-29] MEDS ORDERED: PT OWN MED DRAWER 7, Y5N ONE (09:06)
[2019-03-29] MEDS: ASPIRIN 81 MG CHEWABLE TABLETS PO SCH (09:22)
[2019-03-29] MEDS: CHLORHEXIDINE GLUCONATE 118 ML MOUTHWASH MM SCH (09:22)
[2019-03-29] MEDS: METHYL SALICYLATE/MENTHOL OINT 30 GM TUBE TP SCH (09:22)
[2019-03-29] MEDS: HYDROCHLOROTHIAZIDE 12.5 MG CAPSULE (FP) PO SCH (09:23)
[2019-03-29] MEDS: LIDOCAINE 5% TOPICAL PATCH TP SCH (09:23)
[2019-03-29] MEDS: amLODIPine BESYLATE 5 MG TABLET (FP) PO SCH (09:24)
[2019-03-29] MEDS: NICOTINE 7 MG/24 HOURS TOPICAL PATCH TD SCH (09:24)
[2019-03-29] MEDS: PRENATAL VITAMINS W/ FOLIC ACID TABLET (FP) PO SCH (09:24)
[2019-03-29] MEDS: PANTOPRAZOLE 20 MG TABLET (FP) PO SCH (09:25)
[2019-03-29] MEDS: SERTRALINE HCL 50 MG TABLET (FP) PO SCH (09:25)
[2019-03-29] MEDS: BUDESONIDE/FORMETEROL FUMARATE 160/4.5 mcg INHALER IH SCH (09:25)
[2019-03-29] MEDS: ASCORBIC ACID 500 MG TABLET (FP) PO SCH (09:25)
--- NOTE | 2019-03-29 15:06 | PN ---
[facility] Progress Note (SOAP) Subjective: PT COMPLETED REHAB AND DISCHARGED TODAY. PT PARTICIPATED IN GROUP AND INDIVIDUAL THERAPY. SHE MET WITH COUNSELOR AND HAS BEEN REFERRED TO [facility] FOR CD AFTERCARE. PT REPORTS SHE HAS A PCP DR. SOU[facility] AT [address] [place] [address]. PT STATES SHE WILL WALK IN TO HER DOCTOR'S OFFICE AFTER DISCHARGE TODAY. PT DENIES S/H/I. Objective: 03/29/19 15:05 Vital Signs - 24 hr 03/29/19 03/29/19 03/29/19 00:30 03:30 06:37 Temperature 98.0 F Pulse Rate 100 H Respiratory 18 17 18 Rate Blood Pressure 117/75 Laboratory Tests 03/19/19 03/20/19 03/20/19 17:17 05:42 07:50 WBC 4.9 RBC 4.07 Hgb 13.3 Hct 39.5 MCV 97.0 H MCH 32.6 MCHC 33.6 RDW 14.9 Plt Count 260 MPV 7.7 Sodium Potassium Chloride Carbon Dioxide Anion Gap BUN Creatinine Est GFR (CKD-EPI)AfAm Est GFR (CKD-EPI)NonAf POC Glucometer 87 Random Glucose Calcium Total Bilirubin AST ALT Alkaline Phosphatase Total Protein Albumin Urine Color Urine Appearance Urine pH Ur Specific [place] Urine Protein Urine Glucose (UA) Urine Ketones Urine Blood Urine Nitrite Urine Bilirubin Urine Urobilinogen Ur Leukocyte Esterase Urine WBC (Auto) Urine RBC (Auto) Urine Casts (Auto) U Epithel Cells (Auto) Urine Bacteria (Auto) POC Urine HCG, Qual Negative RPR Titer 03/20/19 03/20/19 03/20/19 07:50 07:50 09:10 WBC RBC Hgb Hct MCV MCH MCHC RDW Plt Count MPV Sodium 141 Potassium 4.2 Chloride 105 Carbon Dioxide 32 Anion Gap 4 L BUN 13.4 Creatinine 1.0 Est GFR (CKD-EPI)AfAm 71.92 Est GFR (CKD-EPI)NonAf 62.05 POC Glucometer Random Glucose 90 Calcium 8.7 Total Bilirubin 0.4 AST 18 ALT 23 Alkaline Phosphatase 94 Total Protein 7.2 Albumin 3.6 Urine Color Yellow Urine Appearance Cloudy Urine pH 5.0 D Ur Specific [place] 1.020 Urine Protein Negative Urine Glucose (UA) Negative Urine Ketones Negative Urine Blood Negative Urine Nitrite Positive H Urine Bilirubin Negative Urine Urobilinogen 0.2 Ur Leukocyte Esterase 1+ H Urine WBC (Auto) 25 Urine RBC (Auto) 2 Urine Casts (Auto) 3 U Epithel Cells (Auto) 2.1 Urine Bacteria (Auto) 4464.9 POC Urine HCG, Qual RPR Titer Nonreactive 03/21/19 03/22/19 03/23/19 07:46 06:23 06:51 WBC RBC Hgb Hct MCV MCH MCHC RDW Plt Count MPV Sodium Potassium Chloride Carbon Dioxide Anion Gap BUN Creatinine Est GFR (CKD-EPI)AfAm Est GFR (CKD-EPI)NonAf POC Glucometer 105 99 104 Random Glucose Calcium Total Bilirubin AST ALT Alkaline Phosphatase Total Protein Albumin Urine Color Urine Appearance Urine pH Ur Specific [place] Urine Protein Urine Glucose (UA) Urine Ketones Urine Blood Urine Nitrite Urine Bilirubin Urine Urobilinogen Ur Leukocyte Esterase Urine WBC (Auto) Urine RBC (Auto) Urine Casts (Auto) U Epithel Cells (Auto) Urine Bacteria (Auto) POC Urine HCG, Qual RPR Titer 03/24/19 03/25/19 03/26/19 06:23 06:48 06:03 WBC RBC Hgb Hct MCV MCH MCHC RDW Plt Count MPV Sodium Potassium Chloride Carbon Dioxide Anion Gap BUN Creatinine Est GFR (CKD-EPI)AfAm Est GFR (CKD-EPI)NonAf POC Glucometer 115 93 94 Random Glucose Calcium Total Bilirubin AST ALT Alkaline Phosphatase Total Protein Albumin Urine Color Urine Appearance Urine pH Ur Specific [place] Urine Protein Urine Glucose (UA) Urine Ketones Urine Blood Urine Nitrite Urine Bilirubin Urine Urobilinogen Ur Leukocyte Esterase Urine WBC (Auto) Urine RBC (Auto) Urine Casts (Auto) U Epithel Cells (Auto) Urine Bacteria (Auto) POC Urine HCG, Qual RPR Titer 03/27/19 03/28/19 03/29/19 07:05 06:54 07:35 WBC RBC Hgb Hct MCV MCH MCHC RDW Plt Count MPV Sodium Potassium Chloride Carbon Dioxide Anion Gap BUN Creatinine Est GFR (CKD-EPI)AfAm Est GFR (CKD-EPI)NonAf POC Glucometer 85 84 85 Random Glucose Calcium Total Bilirubin AST ALT Alkaline Phosphatase Total Protein Albumin Urine Color Urine Appearance Urine pH Ur Specific [place] Urine Protein Urine Glucose (UA) Urine Ketones Urine Blood Urine Nitrite Urine Bilirubin Urine Urobilinogen Ur Leukocyte Esterase Urine WBC (Auto) Urine RBC (Auto) Urine Casts (Auto) U Epithel Cells (Auto) Urine Bacteria (Auto) POC Urine HCG, Qual RPR Titer COMPLETED 7 DAYS COURSE OF ANTIBIOTICS THERAPY FOR UTI. Assessment: 03/29/19 15:07 NAD MEDICALLY STABLE Home Medications Medication Instructions Recorded Fluticasone/Salmeterol [Advair 1 each IH BID #1 disk.w.dev 10/08/17 250-50 Diskus] Ascorbate Calcium [Vitamin C] 500 mg PO DAILY 02/12/19 Folic Acid 1 mg PO DAILY 02/12/19 Multivitamin [Multiple Vitamins] 1 each PO DAILY 02/12/19 Thiamine Mononitrate [Vitamin B-1] 100 mg PO DAILY 02/12/19 Amoxicillin - [Amoxicillin 500mg 500 mg PO TID 03/19/19 Capsule -] Ibuprofen [Motrin -] 600 mg PO TID PRN 03/19/19 Albuterol Sulfate Inhaler - 2 puff IH Q4H PRN #1 inhaler 03/29/19 [Ventolin HFA Inhaler -] Amlodipine Besylate [Norvasc -] 5 mg PO DAILY #14 tablet 03/29/19 Aspirin [ASA -] 81 mg PO DAILY 14 Days #14 tab.chew 03/29/19 Atorvastatin Ca [Lipitor] 10 mg PO HS #14 tablet 03/29/19 Budesonide/Formeterol Fumarate 2 puff IH BID #1 inhaler 03/29/19 [SYMBICORT 160/4.5mcg -] Hydrochlorothiazide [Hctz -] 12.5 mg PO DAILY #14 cap 03/29/19 Montelukast Na [Singulair -] 10 mg PO HS #14 tablet 03/29/19 Pantoprazole Sodium [Protonix -] 40 mg PO DAILY #14 tablet.ec 03/29/19 Quetiapine Fumarate [Seroquel -] 50 mg PO HS #30 tablet 03/29/19 Sertraline HCl [Zoloft -] 50 mg PO DAILY #30 tablet 03/29/19 [facility] ELECTRONICALLY SENT TO PT'S PHARMACY FOR PICKUP. Plan: FOLLOW UP WITH CD AFTERCARE RECOMMENDATION. D/W PT TO FOLLOW UP WITH PCP WITHIN 1-2 WEEKS AFTER DISCHARGE.
== END 2019-03-29 09:30 | disposition home or self-care (01) | DRG 772 ==
LOC: YASAS 13:55 → Y3E 18:17
PROVIDERS: ADMIT Neuromusculoskeletal Medicine & OMM; ATTEND Neuromusculoskeletal Medicine & OMM
PROC: HZ42ZZZ Group Counseling for Substance Abuse Treatment, Cognitive-Behavioral (ICD-10-PCS; principal; 2019-03-19)
DX: F10.20 Alcohol dependence, uncomplicated (principal); F14.20 Cocaine dependence, uncomplicated; F17.210 Nicotine dependence, cigarettes, uncomplicated; F41.9 Anxiety disorder, unspecified; F31.9 Bipolar disorder, unspecified; I10 Essential (primary) hypertension; J45.20 Mild intermittent asthma, uncomplicated; J43.8 Other emphysema; L98.8 Other specified disorders of the skin and subcutaneous tissue; K21.9 Gastro-esophageal reflux disease without esophagitis; M17.0 Bilateral primary osteoarthritis of knee; E78.00 Pure hypercholesterolemia, unspecified; D64.9 Anemia, unspecified; K02.9 Dental caries, unspecified
CPT/HCPCS: 36415; 80053; 81003; 81025; 82962; 85027; 86593

== ENCOUNTER 2019-04-16 09:12 | Inpatient (IN) | payer OTHER | END 2019-04-20 11:10 | disposition other institution (70) | LOC: YASAS 09:12 → Y6N 10:45 ==

== ENCOUNTER 2019-05-10 20:14 | Inpatient (IN) | payer OTHER ==
[2019-05-10 20:48] VITALS: BMI 33.4
--- NOTE | 2019-05-10 21:47 | HP ---
CIWA Score Nausea/Vomitin Muscle Tremors: 3 Anxiety: 3 Agitation: 4-Moderately Restless Paroxysmal Sweats: 3 (Increased facial moisture) Orientation: 0-Oriented Tacttile Disturbances: 0-None Auditory Disturbances: 0-None Visual Disturbances: 0-None Headache: 0-None Present CIWA-Ar Total Score: 16 - Admission Criteria OASAS Guidelines: Admission for Medically Managed Detox: Requires at least one of the followin. CIWA greater than 12 2. Seizures within the past 24 hours 3. Delirium tremens within the past 24 hours 4. Hallucinations within the past 24 hours 5. Acute intervention needed for co occurring medical disorder 6. Acute intervention needed for co occurring psychiatric disorder 7. Severe withdrawal that cannot be handled at a lower level of care (continued vomiting, continued diarrhea, abnormal vital signs) requiring intravenous medication and/or fluids 8. Patient presents the following: CIWA greater than 12 Admission Criteria Met: Admission criteria met Admission ROS BHS - HPI Chief Complaint: I need detox. I'm withdrawing. Allergies/Adverse Reactions: Allergies Allergy/AdvReac Type Severity Reaction Status Date / Time mushroom Allergy Severe Rash Verified 05/10/19 20:30 No Known Drug Allergies Allergy Verified 05/10/19 20:30 History of Present Illness: 58 years old female presence with alcohol and cocaine withdrawal symptom seeking detox. Patient has multiple admissions in detox and rehab but keep relapsing. Patient discharged from [facility] detox on 04/20/19. States started back drinking the day after after discharge. Alcohol use since age 11. States current use is 1/5 liquor and 4- 24 oz bottles beer. Cocaine/crack use since age 28. Smokes and intranasal. Nicotine use since age 10. States currently smokes 2-3 cig QOD Denies seizures, blackouts, overdoses. Longest sobriety 3 and half years in 1990. PMHx: HTN; Hypecholesterolemia, Asthma (no recent exacerbation), Cataract, chronic low back pain, chronic knee pain (ambulates w/ a cane); states pre- diabetic; Hx PPD + Currently c/o oral abscess Last EK08/05/18: NSR Last CXR: 11/20/17: No pulmonary disease Last RPR: 04/16/19: Non-reactive MHHx: Bipolar. Denies thoughts of harming self or others. States last saw own MH Provider in March 2019. SHx: Domiciles. Unemployed. Search Terms: Mauricio Domínguez, 1960 Search Date: 05/10/2019 09:45:09 PM The Drug Utilization Report below displays all of the controlled substance prescriptions, if any, that your patient has filled in the last twelve months. The information displayed on this report is compiled from pharmacy submissions to the Department, and accurately reflects the information as submitted by the pharmacies. This report was requested by: Anuradha Jay | Reference #: [id number] There are no results for the search terms that you entered. Exam Limitations: No Limitations - Ebola screening Have you traveled outside of the country in the last 21 days: No (N) Have you had contact with anyone from an Ebola affected area: No Have you been sick,other than usual withdrawal symptoms: No (Denies recent exposure to measles) Do you have a fever: No - Review of Systems Constitutional: Chills, Diaphoresis, Changes in sleep (Difficulty falling asleep - takes Seroquel) EENT: reports: Cataracts, Blurred Vision, Dental Problems (States has an abscess x 2 weeks. States bleeds and has pus) Respiratory: reports: Cough (x years), Shortness of Breath (r/t cig smoking), SOB with Exertion Cardiac: reports: No Symptoms Reported GI: reports: Nausea, Indigestion (acid reflux), Abdominal cramping : reports: Other (Foul ordor) Musculoskeletal: reports: Back Pain (Chronic mid back sharp/achy pain x years. "8". Triggered by laying down. Improves w/ sitting up.), Joint Pain (Cristopher knee pain sharp/achy - states has water in knees. "8". Increases w/ walking. Improves w/ sitting and elevation.) Integumentary: reports: No Symptoms Reported Neuro: reports: Numbness (fingers) Endocrine: reports: Increased Thirst Hematology: reports: No Symptoms Reported Psychiatric: reports: Orientated x3, Agitated, Anxious, other (Bipolar - Denies thoughts of harming self or others.) Patient History - Patient Medical History Hx Anemia: Yes (Ferrous sulfate, Vitamins) Hx Asthma: Yes (on albuterol inhaler) Hx Chronic Obstructive Pulmonary Disease (COPD): No Hx Cancer: No Hx Cardiac Disorders: No Hx Congestive Heart Failure: No Hx Hypertension: Yes (on med) Hx Hypercholesterolemia: Yes Hx Pacemaker: No HX Cerebrovascular Accident: No Hx Seizures: No Hx Dementia: No Hx Diabetes: No Hx Gastrointestinal Disorders: Yes (GERD) Hx Liver Disease: No Hx Genitourinary Disorders: No Hx Sexually Transmitted Disorders: No Hx Renal Disease (ESRD): No Hx Thyroid Disease: No Hx Human Immunodeficiency Virus (HIV): No (last 2016 negative) Hx Hepatitis C: No Hx Depression: Yes Hx Suicide Attempt: No Hx Bipolar Disorder: Yes Hx Schizophrenia: Yes - Patient Surgical History Past Surgical History: Yes Hx Neurologic Surgery: No Hx Cataract Extraction: No Hx Cardiac Surgery: No Hx Lung Surgery: No Hx Breast Surgery: No Hx Breast Biopsy: No Hx Abdominal Surgery: No Hx Appendectomy: No Hx Cholecystectomy: No Hx Genitourinary Surgery: No Hx Section: Yes (x2) Hx Orthopedic Surgery: Yes (right ankle fx at age 18) Hx Hysterectomy: No Anesthesia Reaction: No - PPD History Results: cxr(-)11/10/17 - Reproductive History Last Menstrual Period: 05/08/90 - Smoking Cessation Smoking history: Current some day smoker Have you smoked in the past 12 months: Yes Aproximately how many cigarettes per day: 10 Cigars Per Day: 0 Hx Chewing Tobacco Use: No Initiated information on smoking cessation: Yes 'Breaking Loose' booklet given: 05/10/19 - Substance & Tx. History Hx Alcohol Use: Yes Substance Use Type: Alcohol, Cocaine Hx Substance Use Treatment: Yes (detox, rehab) - Substances abused Alcohol Substance route: Oral Frequency: Daily Amount used: 1/5th amandeep, cognac & 4 cans beers Age of first use: 10 Date of last use: 05/10/19 Crack Substance route: Smoking Frequency: 1-2 times per week Amount used: $100 Age of first use: 28 Date of last use: 05/08/19 Cocaine Substance route: Inhalation Frequency: 1-2 times per week Amount used: $100 Age of first use: 28 Date of last use: 05/08/19 Family Disease History - Family Disease History Family Disease History: Diabetes: Sister, Heart Disease: Father (), Mother (COPD- ), Other: Mother, Brother (only child) Admission Physical Exam BHS - Vital Signs Vital Signs: Vital Signs - 24 hr 05/10/19 20:25 Temperature 97.5 F L Pulse Rate 106 H Respiratory 17 Rate Blood Pressure 99/69 - Physical General Appearance: Yes: Nourished, Mild Distress, Obese, Tremorous (Mild), Irritable, Anxious HEENTM: Yes: Hearing grossly Normal, Normocephalic, Normal Voice, Orbits ((R) pupil irregular shaped), Other (Increase swelling/tenderness (L) upper mucosal gum line . Poor dentiton) Respiratory: Yes: Lungs Clear, Normal Breath Sounds, No Respiratory Distress Neck: Yes: No masses,lesions,Nodules, Supple Breast: Yes: Breast Exam Deferred Cardiology: Yes: Regular Rhythm, S1, S2, Murmur, Irregular (HR: 78; Irregular) Abdominal: Yes: Non Tender, Soft, Protuberent (Increased abdominal adiposity) Back: Yes: Normal Inspection Musculoskeletal: Yes: full range of Motion, Other (Knees w/o crepitus or edema.) Extremities: Yes: Normal Capillary Refill, Tremors (mild w/ arms elevated) Neurological: Yes: Fully Oriented, Alert, Motor Strength 5/5, Normal Response Integumentary: Yes: Normal Color, Warm Lymphatic: Yes: Within Normal Limits - Diagnostic (1) History of asthma Current Visit: Yes Status: Chronic (2) History of positive PPD Current Visit: Yes Status: Chronic (3) Poor dentition Current Visit: Yes Status: Chronic (4) Abscess of upper gum Current Visit: Yes Status: Acute (5) Alcohol dependence with uncomplicated withdrawal Current Visit: No Status: Acute (6) Hypertension Current Visit: Yes Status: Chronic Qualifiers: Hypertension type: essential hypertension Qualified Code(s): I10 - Essential (primary) hypertension (7) Chronic back pain Current Visit: Yes Status: Chronic Qualifiers: Back pain location: thoracic back pain Back pain laterality: midline Qualified Code(s): M54.6 - Pain in thoracic spine; G89.29 - Other chronic pain (8) Chronic knee pain Current Visit: Yes Status: Chronic Qualifiers: Laterality: bilateral Qualified Code(s): M25.561 - Pain in right knee; M25.562 - Pain in left knee; G89.29 - Other chronic pain (9) Dry skin Current Visit: No Status: Chronic (10) Obesity (BMI 30.0-34.9) Current Visit: Yes Status: Chronic (11) GERD (gastroesophageal reflux disease) Current Visit: Yes Status: Chronic Qualifiers: Esophagitis presence: without esophagitis Qualified Code(s): K21.9 - Gastro -esophageal reflux disease without esophagitis (12) Pupil irregular of right eye Current Visit: Yes Status: Chronic Cleared for Admission S - Detox or Rehab [facility] Level of Care: Medically Managed Detox Regimen/Protocol: Librium Claeared for Rehab Admission: No Breathalyzer - Breathalyzer Breathalyzer: 0 Urine Drug Screen - Test Device Lot number: [id number] Expiration date: 02/05/21 - Control Is test valid?: Yes - Results Drug screen NEGATIVE: No Urine drug screen results: KULWINDER-Cocaine, BZO-Benzodiazepines Inpatient Rehab Admission - Rehab Decision to Admit Inpatient rehab admission?: No
[2019-05-10] MEDS ORDERED: MAGNESIUM CITRATE 300 ML BOTTLE PO PRN (22:23)
[2019-05-10] MEDS ORDERED: MAGNESIUM HYDROX 2400MG/30ML ORAL SUSPENSION 30 ML CUP PO PRN (22:23)
[2019-05-10] MEDS ORDERED: BISMUTH SUBSALICYLATE 524 MG/30 ML UD PO PRN (22:23)
[2019-05-10] MEDS ORDERED: chlordiazePOXIDE HCL 10 MG CAPSULE PO PRN (22:23)
[2019-05-10] MEDS ORDERED: MENTHOL/PHENOL 1 EACH UD MM PRN (22:23)
[2019-05-10] MEDS ORDERED: ACETAMINOPHEN 325 MG TABLET (FP) PO PRN (22:23)
[2019-05-10] MEDS ORDERED: NICOTINE POLACRILEX 2 MG GUM BUC PRN (22:23)
[2019-05-10] MEDS ORDERED: MAG HYDROX/AL HYDROX/SIMETH 30 ML UNIT-DOSE CUP PO PRN (22:23)
[2019-05-10] MEDS ORDERED: ALBUTEROL SO4 8 GM HFA INHALER IH PRN (22:27)
[2019-05-10] MEDS ORDERED: METHYL SALICYLATE/MENTHOL OINT 30 GM TUBE TP PRN (22:28)
[2019-05-10] MEDS ORDERED: chlordiazePOXIDE HCL 25 MG CAPSULE PO ONE (23:00)
[2019-05-10] MEDS: CEPHALEXIN MONOHYDRATE 500 MG CAPSULE (UD) PO SCH (23:25)
[2019-05-10] MEDS: MELATONIN 5 MG TABLETS PO PRN (23:28)
[2019-05-11] MEDS: chlordiazePOXIDE HCL 25 MG CAPSULE PO SCH ×3 (05:16→21:56)
[2019-05-11] MEDS: CEPHALEXIN MONOHYDRATE 500 MG CAPSULE (UD) PO SCH ×4 (05:16→23:35)
[2019-05-11] MEDS: ACETAMINOPHEN 325 MG TABLET (FP) PO PRN ×3 (05:19→17:08)
[2019-05-11 10:00] LABS: HEMATOCRIT 32.4 % (32.4-45.2); HEMOGLOBIN 11.1 GM/dL (10.7-15.3); MCH 32.4 pg (25.7-33.7); MCHC 34.4 g/dl (32.0-36.0); MEAN CELL VOLUME 94.1 fl (80-96); MEAN PLT VOLUME 7.6 fl (7.5-11.1); PLATELET COUNT 262 K/MM3 (134-434); RBC 3.44 M/mm3 (3.60-5.2); RDW 15.3 % (11.6-15.6); WHITE BLOOD COUNT 8.6 K/mm3 (4.0-10.0)
--- NOTE | 2019-05-11 10:00 | PN ---
[facility] CIWA - CIWA Score Nausea/Vomitin-Mild Nausea/No Vomiting Muscle Tremors: 2 Anxiety: 3 Agitation: 4-Moderately Restless Paroxysmal Sweats: 1-Minimal Palms Moist Orientation: 0-Oriented Tacttile Disturbances: 0-None Auditory Disturbances: 0-None Visual Disturbances: 0-None Headache: 0-None Present CIWA-Ar Total Score: 11 S Progress Note (SOAP) Subjective: 58 years old female multiple patient [facility] admission since 2014 was admitted on 05/10/19 for acute alcohol withdrawal sx management dong well with libirum detox regimen mild tremor tolerate food and fluid well ambulating on hallway steady gait Objective: 05/11/19 10:07 Vital Signs Temperature 99.3 F 05/11/19 09:08 Pulse Rate 102 H 05/11/19 09:08 Respiratory Rate 20 05/11/19 09:08 Blood Pressure 91/65 05/11/19 09:08 O2 Sat by Pulse Oximetry (%) Laboratory Last Values Sodium 134 mmol/L (136-145) L 05/11/19 07:00 Chloride 99 mmol/L (98-107) 05/11/19 07:00 Carbon Dioxide 25 mmol/L (21-32) 05/11/19 07:00 Anion Gap 10 MMOL/L (8-16) 05/11/19 07:00 BUN 12.3 mg/dL (7-18) 05/11/19 07:00 Creatinine 1.1 mg/dL (0.55-1.3) 05/11/19 07:00 Est GFR (CKD-EPI)AfAm 64.09 05/11/19 07:00 Est GFR (CKD-EPI)NonAf 55.30 05/11/19 07:00 POC Glucometer 176 UNITS (80-120) 05/11/19 05:58 Random Glucose 120 mg/dL (74-106) H 05/11/19 07:00 Calcium 8.0 mg/dL (8.5-10.1) L 05/11/19 07:00 Total Bilirubin 0.8 mg/dL (0.2-1) 05/11/19 07:00 AST 19 U/L (15-37) 05/11/19 07:00 ALT 20 U/L (13-61) 05/11/19 07:00 Alkaline Phosphatase 86 U/L (45-117) 05/11/19 07:00 Total Protein 6.5 g/dl (6.4-8.2) 05/11/19 07:00 Albumin 2.9 g/dl (3.4-5.0) L 05/11/19 07:00 lab noted increase oral fluid Assessment: 05/11/19 10:08 alcohol withdrawal sx alert oriented x 3 05/11/19 10:11 ambulating with cane speech clearly and coherently denies chest pain no wheezing Plan: continue librium detox regimen
[2019-05-11 10:04] LABS: ALBUMIN 2.9 g/dl (3.4-5.0); BILIRUBIN,TOTAL 0.8 mg/dL (0.2-1); BLOOD UREA NITROGEN 12.3 mg/dL (7-18); CREATININE 1.1 mg/dL (0.55-1.3); TOT PROT 6.5 g/dl (6.4-8.2)
[2019-05-11] MEDS: PRENATAL VITAMINS W/ FOLIC ACID TABLET (FP) PO SCH (10:05)
[2019-05-11] MEDS: PANTOPRAZOLE 40 MG TABLET (FP) PO SCH (10:05)
[2019-05-11] MEDS: amLODIPine BESYLATE 5 MG TABLET (FP) PO SCH (10:05)
[2019-05-11] MEDS: ASPIRIN 81 MG CHEWABLE TABLETS PO SCH (10:06)
[2019-05-11] MEDS: BUDESONIDE/FORMETEROL FUMARATE 160/4.5 mcg INHALER IH SCH ×2 (10:06→22:14)
[2019-05-11] MEDS ORDERED: COLLOIDAL OATMEAL 1 BAR EACH TP PRN (10:10)
[2019-05-11 10:47] LABS: POTASSIUM 2.9 mmol/L (3.5-5.1)
[2019-05-11] MEDS: POTASSIUM CHLORIDE ORAL LIQUID 20 MEQ/15 ML PO SCH ×2 (12:04→17:09)
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
[2019-05-11 14:49] LABS: URINE APPEARANCE CLEAR; URINE BILIRUBIN NEGATIVE (NEGATIVE); URINE COLOR YELLOW; URINE GLUCOSE (UA) NEGATIVE (NEGATIVE); URINE KETONE NEGATIVE (NEGATIVE); URINE LEUK ESTERASE 3+ (NEGATIVE); URINE NITRITE NEGATIVE (NEGATIVE); URINE PROTEIN NEGATIVE (NEGATIVE); URINE UROBILINOGEN 0.2 mg/dL (0.2-1.0)
[2019-05-11 14:50] LABS: EPI CELLS 13.9 /HPF (0-5/HPF); HYALINE CASTS 4.12 /lpf (0-8); URINE BACTERIA 7.4 /hpf (NEGATIVE); URINE RBC 7.1 /hpf (0-4); URINE WBC 40.8 /hpf (0-5)
[2019-05-11] MEDS: MINERAL OIL/PETROLAT/WATER TOPICAL CREAM 113 GM JAR TP SCH (15:46)
[2019-05-11] MEDS: ATORVASTATIN CA 20 MG TABLET (FP) PO SCH (21:56)
[2019-05-11] MEDS: QUEtiapine FUMARATE 50 MG TABLET PO SCH (21:56)
[2019-05-11] MEDS: THIAMINE HCL 100 MG TABLET (FP) PO SCH (21:56)
[2019-05-11] MEDS: MONTELUKAST NA 10 MG TABLET PO SCH (21:56)
[2019-05-11] MEDS ORDERED: MONTELUKAST NA 10 MG TABLET PO SCH (22:00)
[2019-05-12] MEDS ORDERED: chlordiazePOXIDE HCL 10 MG CAPSULE PO PRN
[2019-05-12] MEDS: chlordiazePOXIDE 5 MG CAPSULE PO SCH ×3 (04:32→22:07)
[2019-05-12] MEDS: ACETAMINOPHEN 325 MG TABLET (FP) PO PRN ×2 (04:34→19:30)
[2019-05-12] MEDS: CEPHALEXIN MONOHYDRATE 500 MG CAPSULE (UD) PO SCH ×2 (05:25→11:26)
[2019-05-12] MEDS: PRENATAL VITAMINS W/ FOLIC ACID TABLET (FP) PO SCH (10:53)
[2019-05-12] MEDS: PANTOPRAZOLE 40 MG TABLET (FP) PO SCH (10:54)
[2019-05-12] MEDS: POTASSIUM CHLORIDE TABS 20 MEQ TABLET.ER (FP) PO SCH ×2 (10:54→22:04)
[2019-05-12] MEDS: amLODIPine BESYLATE 5 MG TABLET (FP) PO SCH (10:54)
[2019-05-12] MEDS: ASPIRIN 81 MG CHEWABLE TABLETS PO SCH (10:54)
[2019-05-12] MEDS: METHOCARBAMOL 500 MG TABLET PO PRN ×2 (10:54→22:05)
[2019-05-12] MEDS: MINERAL OIL/PETROLAT/WATER TOPICAL CREAM 113 GM JAR TP SCH (11:07)
[2019-05-12] MEDS: SERTRALINE HCL 50 MG TABLET (FP) PO SCH (11:07)
[2019-05-12] MEDS: BUDESONIDE/FORMETEROL FUMARATE 160/4.5 mcg INHALER IH SCH ×2 (11:07→22:35)
--- NOTE | 2019-05-12 11:38 | PN ---
S CIWA - CIWA Score Nausea/Vomitin-Mild Nausea/No Vomiting Muscle Tremors: 2 Anxiety: 3 Agitation: 3 Paroxysmal Sweats: 1-Minimal Palms Moist Orientation: 0-Oriented Tacttile Disturbances: 1-Very Mild Itch/Numbness Auditory Disturbances: 0-None Visual Disturbances: 0-None Headache: 1-Very Mild CIWA-Ar Total Score: 12 BHS Progress Note (SOAP) Subjective: alert,irritable,anxious,interrupted sleep,tremor,pain in left upper molar,no calf tenderness,denied urinary problem Objective: 05/12/19 11:36 Vital Signs Temperature 98.4 F 05/12/19 09:12 Pulse Rate 110 H 05/12/19 09:12 Respiratory Rate 18 05/12/19 09:12 Blood Pressure 92/61 05/12/19 09:12 O2 Sat by Pulse Oximetry (%) 05/12/19 11:37 Laboratory Last Values WBC 8.6 K/mm3 (4.0-10.0) 05/11/19 07:00 RBC 3.44 M/mm3 (3.60-5.2) L 05/11/19 07:00 Hgb 11.1 GM/dL (10.7-15.3) 05/11/19 07:00 Hct 32.4 % (32.4-45.2) 05/11/19 07:00 MCV 94.1 fl (80-96) 05/11/19 07:00 MCH 32.4 pg (25.7-33.7) 05/11/19 07:00 MCHC 34.4 g/dl (32.0-36.0) 05/11/19 07:00 RDW 15.3 % (11.6-15.6) 05/11/19 07:00 Plt Count 262 K/MM3 (134-434) 05/11/19 07:00 MPV 7.6 fl (7.5-11.1) 05/11/19 07:00 Sodium 134 mmol/L (136-145) L 05/11/19 07:00 Potassium 2.9 mmol/L (3.5-5.1) L* 05/11/19 07:00 Chloride 99 mmol/L (98-107) 05/11/19 07:00 Carbon Dioxide 25 mmol/L (21-32) 05/11/19 07:00 Anion Gap 10 MMOL/L (8-16) 05/11/19 07:00 BUN 12.3 mg/dL (7-18) 05/11/19 07:00 Creatinine 1.1 mg/dL (0.55-1.3) 05/11/19 07:00 Est GFR (CKD-EPI)AfAm 64.09 05/11/19 07:00 Est GFR (CKD-EPI)NonAf 55.30 05/11/19 07:00 POC Glucometer 137 UNITS (80-120) 05/12/19 05:55 Random Glucose 120 mg/dL (74-106) H 05/11/19 07:00 Calcium 8.0 mg/dL (8.5-10.1) L 05/11/19 07:00 Total Bilirubin 0.8 mg/dL (0.2-1) 05/11/19 07:00 AST 19 U/L (15-37) 05/11/19 07:00 ALT 20 U/L (13-61) 05/11/19 07:00 Alkaline Phosphatase 86 U/L (45-117) 05/11/19 07:00 Total Protein 6.5 g/dl (6.4-8.2) 05/11/19 07:00 Albumin 2.9 g/dl (3.4-5.0) L 05/11/19 07:00 Urine Color Yellow 05/11/19 11:10 Urine Appearance Clear 05/11/19 11:10 Urine pH 6.0 (5.0-8.0) 05/11/19 11:10 Ur Specific [place] 1.006 (1.010-1.035) L 05/11/19 11:10 Urine Protein Negative (NEGATIVE) 05/11/19 11:10 Urine Glucose (UA) Negative (NEGATIVE) 05/11/19 11:10 Urine Ketones Negative (NEGATIVE) 05/11/19 11:10 Urine Blood 1+ (NEGATIVE) H 05/11/19 11:10 Urine Nitrite Negative (NEGATIVE) 05/11/19 11:10 Urine Bilirubin Negative (NEGATIVE) 05/11/19 11:10 Urine Urobilinogen 0.2 mg/dL (0.2-1.0) 05/11/19 11:10 Ur Leukocyte Esterase 3+ (NEGATIVE) H 05/11/19 11:10 Urine WBC (Auto) 40.8 /hpf (0-5) 05/11/19 11:10 Urine RBC (Auto) 7.1 /hpf (0-4) 05/11/19 11:10 Urine Casts (Auto) 4.12 /lpf (0-8) 05/11/19 11:10 U Epithel Cells (Auto) 13.9 /HPF (0-5/HPF) 05/11/19 11:10 U Sm Round Cell (Auto) None seen 05/11/19 11:10 Urine Bacteria (Auto) 7.4 /hpf (NEGATIVE) 05/11/19 11:10 Assessment: 05/12/19 11:38 withdrawal symptom Plan: continue detox,librium regimen,k 2.9 on k dur replacement,stated did not take amlodipine,d/c .onhydrochlorothiazide 12.5 mg po daily, did not want keflex for tooth abscess,pen vee k 500 mgs po q 6 hrs,close monitoring
[2019-05-12] MEDS: PENICILLIN V POTASSIUM 500 MG TABLET PO SCH ×2 (13:28→19:30)
--- NOTE | 2019-05-12 14:29 | PN ---
[facility] Progress Note Note: low back pain,will do lumbar spine
[2019-05-12] MEDS: ATORVASTATIN CA 20 MG TABLET (FP) PO SCH (22:04)
[2019-05-12] MEDS: THIAMINE HCL 100 MG TABLET (FP) PO SCH (22:04)
[2019-05-12] MEDS: MONTELUKAST NA 10 MG TABLET PO SCH (22:04)
[2019-05-12] MEDS: QUEtiapine FUMARATE 50 MG TABLET PO SCH (22:04)
[2019-05-13] MEDS: PENICILLIN V POTASSIUM 500 MG TABLET PO SCH ×4 (00:12→17:38)
[2019-05-13] MEDS: ACETAMINOPHEN 325 MG TABLET (FP) PO PRN (04:38)
[2019-05-13] MEDS: chlordiazePOXIDE HCL 10 MG CAPSULE PO SCH ×3 (04:39→21:19)
[2019-05-13] MEDS: HYDROCHLOROTHIAZIDE 12.5 MG CAPSULE (FP) PO SCH (10:47)
[2019-05-13] MEDS: POTASSIUM CHLORIDE TABS 20 MEQ TABLET.ER (FP) PO SCH (10:47)
[2019-05-13] MEDS: ASPIRIN 81 MG CHEWABLE TABLETS PO SCH (10:47)
[2019-05-13] MEDS: MINERAL OIL/PETROLAT/WATER TOPICAL CREAM 113 GM JAR TP SCH (10:47)
[2019-05-13] MEDS: PRENATAL VITAMINS W/ FOLIC ACID TABLET (FP) PO SCH (10:47)
[2019-05-13] MEDS: PANTOPRAZOLE 40 MG TABLET (FP) PO SCH (10:47)
[2019-05-13] MEDS: SERTRALINE HCL 50 MG TABLET (FP) PO SCH (10:47)
[2019-05-13] MEDS: BUDESONIDE/FORMETEROL FUMARATE 160/4.5 mcg INHALER IH SCH ×2 (10:48→21:20)
[2019-05-13] MEDS: METHOCARBAMOL 500 MG TABLET PO PRN ×2 (10:55→21:24)
[2019-05-13] MEDS: IBUPROFEN 600 MG TABLET (FP) PO PRN ×2 (10:55→21:24)
--- NOTE | 2019-05-13 11:38 | PN ---
[facility] CIWA - CIWA Score Nausea/Vomitin Muscle Tremors: 2 Anxiety: 3 Agitation: 3 Paroxysmal Sweats: 1-Minimal Palms Moist Orientation: 0-Oriented Tacttile Disturbances: 0-None Auditory Disturbances: 0-None Visual Disturbances: 0-None Headache: 2-Mild CIWA-Ar Total Score: 13 BHS Progress Note (SOAP) Subjective: alert,irritable,anxious,interrupted sleep,tremor,pain in the body,urinary frequency,dry eye,tooth pain is less Objective: 05/13/19 11:37 Vital Signs Temperature 102.8 F H 05/13/19 09:38 Pulse Rate 113 H 05/13/19 09:38 Respiratory Rate 20 05/13/19 09:38 Blood Pressure 108/68 05/13/19 09:38 O2 Sat by Pulse Oximetry (%) repat cmp pending Assessment: 05/13/19 11:38 withdrawal symptom Plan: continue detox,libriume,urine for c/s r/o uti,levaquin 500 mgs po daily for 7 day,fluid,jaspreet monitoring
--- NOTE | 2019-05-13 11:41 | PN ---
[facility] Progress Note Note: chest x ray and lumbar x ray noted
[2019-05-13 12:26] LABS: BILIRUBIN,TOTAL 0.3 mg/dL (0.2-1); BLOOD UREA NITROGEN 7.9 mg/dL (7-18); CALCIUM 8.6 mg/dL (8.5-10.1); CREATININE 0.9 mg/dL (0.55-1.3); POTASSIUM 4.6 mmol/L (3.5-5.1); TOT PROT 6.9 g/dl (6.4-8.2)
--- NOTE | 2019-05-13 15:40 | PN ---
[facility] Progress Note Note: Laboratory Results - last 24 hr 05/12/19 05/13/19 16:17 09:00 Sodium 140 Potassium 4.6 Chloride 102 Carbon Dioxide 28 Anion Gap 10 BUN 7.9 Creatinine 0.9 Est GFR (CKD-EPI)AfAm 81.69 Est GFR (CKD-EPI)NonAf 70.48 POC Glucometer 88 Random Glucose 87 Fasting Glucose 87 Calcium 8.6 Total Bilirubin 0.3 AST 20 ALT 31 Alkaline Phosphatase 91 Total Protein 6.9 Albumin 3.0 L k is 4.6 fasting glucoe is 87 will discontinue k replacement
[2019-05-13] MEDS: ATORVASTATIN CA 20 MG TABLET (FP) PO SCH (21:19)
[2019-05-13] MEDS: MONTELUKAST NA 10 MG TABLET PO SCH (21:19)
[2019-05-13] MEDS: THIAMINE HCL 100 MG TABLET (FP) PO SCH (21:19)
[2019-05-13] MEDS: QUEtiapine FUMARATE 50 MG TABLET PO SCH (21:19)
[2019-05-13] MEDS: MELATONIN 5 MG TABLETS PO PRN (21:21)
[2019-05-14] MEDS: PENICILLIN V POTASSIUM 500 MG TABLET PO SCH ×3 (02:06→12:44)
[2019-05-14] MEDS ORDERED: chlordiazePOXIDE HCL 10 MG CAPSULE PO ONE (05:00)
[2019-05-14] MEDS: IBUPROFEN 600 MG TABLET (FP) PO PRN (08:35)
[2019-05-14] MEDS: METHOCARBAMOL 500 MG TABLET PO PRN (08:37)
[2019-05-14 09:10] VITALS: BP 105/72; PULSE 115; TEMP 99.1
[2019-05-14] MEDS: PRENATAL VITAMINS W/ FOLIC ACID TABLET (FP) PO SCH (10:36)
[2019-05-14] MEDS: HYDROCHLOROTHIAZIDE 12.5 MG CAPSULE (FP) PO SCH (10:36)
[2019-05-14] MEDS: PANTOPRAZOLE 40 MG TABLET (FP) PO SCH (10:36)
[2019-05-14] MEDS: ASPIRIN 81 MG CHEWABLE TABLETS PO SCH (10:36)
[2019-05-14] MEDS: SERTRALINE HCL 50 MG TABLET (FP) PO SCH (10:37)
[2019-05-14] MEDS: BUDESONIDE/FORMETEROL FUMARATE 160/4.5 mcg INHALER IH SCH (10:37)
[2019-05-14] MEDS: MINERAL OIL/PETROLAT/WATER TOPICAL CREAM 113 GM JAR TP SCH (10:39)
--- NOTE | 2019-05-14 12:36 | PN ---
S CIWA - CIWA Score Nausea/Vomitin-No Nausea/No Vomiting Muscle Tremors: 1-None Visible, but [place] Anxiety: 2 Agitation: 2 Paroxysmal Sweats: No Perspiration Orientation: 0-Oriented Tacttile Disturbances: 0-None Auditory Disturbances: 0-None Visual Disturbances: 0-None Headache: 1-Very Mild CIWA-Ar Total Score: 6 BHS Progress Note (SOAP) Subjective: alert,anxious,interrupted sleep,no fever Objective: 05/14/19 12:34 Vital Signs Temperature 99.1 F 05/14/19 09:09 Pulse Rate 115 H 05/14/19 09:09 Respiratory Rate 18 05/14/19 09:09 Blood Pressure 105/72 05/14/19 09:09 O2 Sat by Pulse Oximetry (%) Assessment: 05/14/19 12:34 detox completed Plan: stable for discharge to reha,will follow urine for c/s in rehab and continue antibiotics
--- NOTE | 2019-05-14 12:41 | DS ---
[facility] Detox Discharge Summary Admission Date: 05/10/19 Discharge Date: 05/14/19 - History Present History: Alcohol Dependence, Cocaine Dependence Pertinent Past History: hypertension hypercholesterolemia tooth abscess schizoaffective disorder - Physical Exam Results Vital Signs: Vital Signs Temperature 99.1 F 05/14/19 09:09 Pulse Rate 115 H 05/14/19 09:09 Respiratory Rate 18 05/14/19 09:09 Blood Pressure 105/72 05/14/19 09:09 O2 Sat by Pulse Oximetry (%) Pertinent Admission Physical Exam Findings: withdrawal sign and symptom Laboratory Last Values WBC 8.6 K/mm3 (4.0-10.0) 05/11/19 07:00 RBC 3.44 M/mm3 (3.60-5.2) L 05/11/19 07:00 Hgb 11.1 GM/dL (10.7-15.3) 05/11/19 07:00 Hct 32.4 % (32.4-45.2) 05/11/19 07:00 MCV 94.1 fl (80-96) 05/11/19 07:00 MCH 32.4 pg (25.7-33.7) 05/11/19 07:00 MCHC 34.4 g/dl (32.0-36.0) 05/11/19 07:00 RDW 15.3 % (11.6-15.6) 05/11/19 07:00 Plt Count 262 K/MM3 (134-434) 05/11/19 07:00 MPV 7.6 fl (7.5-11.1) 05/11/19 07:00 Sodium 140 mmol/L (136-145) 05/13/19 09:00 Potassium 4.6 mmol/L (3.5-5.1) 05/13/19 09:00 Chloride 102 mmol/L (98-107) 05/13/19 09:00 Carbon Dioxide 28 mmol/L (21-32) 05/13/19 09:00 Anion Gap 10 MMOL/L (8-16) 05/13/19 09:00 BUN 7.9 mg/dL (7-18) 05/13/19 09:00 Creatinine 0.9 mg/dL (0.55-1.3) 05/13/19 09:00 Est GFR (CKD-EPI)AfAm 81.69 05/13/19 09:00 Est GFR (CKD-EPI)NonAf 70.48 05/13/19 09:00 POC Glucometer 95 UNITS (80-120) 05/14/19 07:03 Random Glucose 87 mg/dL (74-106) 05/13/19 09:00 Fasting Glucose 87 mg/dL (74-106) 05/13/19 09:00 Calcium 8.6 mg/dL (8.5-10.1) 05/13/19 09:00 Total Bilirubin 0.3 mg/dL (0.2-1) 05/13/19 09:00 AST 20 U/L (15-37) 05/13/19 09:00 ALT 31 U/L (13-61) 05/13/19 09:00 Alkaline Phosphatase 91 U/L (45-117) 05/13/19 09:00 Total Protein 6.9 g/dl (6.4-8.2) 05/13/19 09:00 Albumin 3.0 g/dl (3.4-5.0) L 05/13/19 09:00 Urine Color Yellow 05/11/19 11:10 Urine Appearance Clear 05/11/19 11:10 Urine pH 6.0 (5.0-8.0) 05/11/19 11:10 Ur Specific [place] 1.006 (1.010-1.035) L 05/11/19 11:10 Urine Protein Negative (NEGATIVE) 05/11/19 11:10 Urine Glucose (UA) Negative (NEGATIVE) 05/11/19 11:10 Urine Ketones Negative (NEGATIVE) 05/11/19 11:10 Urine Blood 1+ (NEGATIVE) H 05/11/19 11:10 Urine Nitrite Negative (NEGATIVE) 05/11/19 11:10 Urine Bilirubin Negative (NEGATIVE) 05/11/19 11:10 Urine Urobilinogen 0.2 mg/dL (0.2-1.0) 05/11/19 11:10 Ur Leukocyte Esterase 3+ (NEGATIVE) H 05/11/19 11:10 Urine WBC (Auto) 40.8 /hpf (0-5) 05/11/19 11:10 Urine RBC (Auto) 7.1 /hpf (0-4) 05/11/19 11:10 Urine Casts (Auto) 4.12 /lpf (0-8) 05/11/19 11:10 U Epithel Cells (Auto) 13.9 /HPF (0-5/HPF) 05/11/19 11:10 U Sm Round Cell (Auto) None seen 05/11/19 11:10 Urine Bacteria (Auto) 7.4 /hpf (NEGATIVE) 05/11/19 11:10 Vital Signs Temperature 99.1 F 05/14/19 09:09 Pulse Rate 115 H 05/14/19 09:09 Respiratory Rate 18 05/14/19 09:09 Blood Pressure 105/72 05/14/19 09:09 O2 Sat by Pulse Oximetry (%) - Treatment Hospital Course: Detox Protocol Followed, Detoxed Safely, Responded well, Discharged Condition Good, Rehab Referral Accepted Patient has Accepted a [facility] Referral [facility]: [facility] - Medication Discharge Medications: Ambulatory Orders Fluticasone/Salmeterol [Advair 250-50 Diskus] 1 each IH BID #1 disk.w.dev Ascorbate Calcium [Vitamin C] 500 mg PO DAILY 02/12/19 Folic Acid 1 mg PO DAILY 02/12/19 Multivitamin [Multiple Vitamins] 1 each PO DAILY 02/12/19 Thiamine Mononitrate [Vitamin B-1] 100 mg PO DAILY 02/12/19 Ibuprofen [Motrin -] 600 mg PO TID PRN 03/19/19 Albuterol Sulfate Inhaler - [Ventolin HFA Inhaler -] 2 puff IH Q4H PRN #1 inhaler 03/29/19 Amlodipine Besylate [Norvasc -] 5 mg PO DAILY #14 tablet 03/29/19 Aspirin [ASA -] 81 mg PO DAILY 14 Days #14 tab.chew 03/29/19 Atorvastatin Ca [Lipitor] 10 mg PO HS #14 tablet 03/29/19 Budesonide/Formeterol Fumarate [SYMBICORT 160/4.5mcg -] 2 puff IH BID #1 inhaler 03/29/19 Hydrochlorothiazide [Hctz -] 12.5 mg PO DAILY #14 cap 03/29/19 Montelukast Na [Singulair -] 10 mg PO HS #14 tablet 03/29/19 Pantoprazole Sodium [Protonix -] 40 mg PO DAILY #14 tablet.ec 03/29/19 Quetiapine Fumarate [Seroquel -] 50 mg PO HS #30 tablet 03/29/19 Sertraline HCl [Zoloft -] 50 mg PO DAILY #30 tablet 03/29/19 Lanolin Alcohol/Mo/W.pet/[place] [Eucerin Creme] 480 gm TP DAILY 05/10/19 - Diagnosis (1) Alcohol dependence with uncomplicated withdrawal Current Visit: Yes Status: Acute (2) Abscess of upper gum Current Visit: Yes Status: Acute (3) Chronic back pain Current Visit: Yes Status: Chronic Qualifiers: Back pain location: thoracic back pain Back pain laterality: midline Qualified Code(s): M54.6 - Pain in thoracic spine; G89.29 - Other chronic pain (4) Cocaine dependence Current Visit: Yes Status: Chronic Qualifiers: Substance use status: uncomplicated Qualified Code(s): F14.20 - Cocaine dependence, uncomplicated (5) GERD (gastroesophageal reflux disease) Current Visit: Yes Status: Chronic Qualifiers: Esophagitis presence: without esophagitis Qualified Code(s): K21.9 - Gastro -esophageal reflux disease without esophagitis (6) History of asthma Current Visit: Yes Status: Chronic (7) History of positive PPD Current Visit: Yes Status: Chronic (8) Hypertension Current Visit: Yes Status: Chronic Qualifiers: Hypertension type: essential hypertension Qualified Code(s): I10 - Essential (primary) hypertension (9) Nicotine dependence Current Visit: Yes Status: Chronic Qualifiers: Nicotine product type: cigarettes Substance use status: uncomplicated Qualified Code(s): F17.210 - Nicotine dependence, cigarettes, uncomplicated (10) Poor dentition Current Visit: Yes Status: Chronic (11) Schizoaffective disorder Current Visit: Yes Status: Chronic Qualifiers: (12) Hypokalemia Current Visit: Yes Status: Acute (13) UTI (urinary tract infection) Current Visit: Yes Status: Acute - AMA Did Patient Leave Against Medical Advice: No
== END 2019-05-14 13:35 | disposition other institution (70) | DRG 774 ==
LOC: YASAS 20:14 → Y3N 22:54
PROVIDERS: ADMIT Surgery; ATTEND Surgery
PROC: HZ2ZZZZ Detoxification Services for Substance Abuse Treatment (ICD-10-PCS; principal; 2019-05-10)
DX: F10.230 Alcohol dependence with withdrawal, uncomplicated (principal); F14.20 Cocaine dependence, uncomplicated; F25.9 Schizoaffective disorder, unspecified; F19.24 Other psychoactive substance dependence with psychoactive substance-induced mood disorder; N39.0 Urinary tract infection, site not specified; E87.6 Hypokalemia; I10 Essential (primary) hypertension; E78.00 Pure hypercholesterolemia, unspecified; K21.9 Gastro-esophageal reflux disease without esophagitis; G47.00 Insomnia, unspecified; M54.5 Low back pain; M54.6 Pain in thoracic spine; G89.29 Other chronic pain; M25.561 Pain in right knee; M25.562 Pain in left knee; H21.561 Pupillary abnormality, right eye; E66.9 Obesity, unspecified; Z68.33 Body mass index [BMI] 33.0-33.9, adult; Z99.89 Dependence on other enabling machines and devices
CPT/HCPCS: 36415; 71046-TC-FY; 72100-TC-FY; 80053; 81003; 82947; 82962; 85027; 87086; 87186

== ENCOUNTER 2019-05-14 13:36 | Inpatient (IN) | payer OTHER | END 2019-05-26 07:00 | disposition home or self-care (01) | LOC: YASAS 13:36 → Y3N 05-16 12:03 → Y3E 05-19 11:25 → Y3W 13:39 → Y3E 05-16 12:06 → Y3N 23:54 → Y3E 23:55 ==

== ENCOUNTER 2019-08-20 11:37 | Inpatient (IN) | payer OTHER ==
[2019-08-20 12:31] VITALS: BMI 35.4
--- NOTE | 2019-08-20 13:07 | HP ---
CIWA Score Nausea/Vomitin-No Nausea/No Vomiting Muscle Tremors: None Anxiety: 1-Mildly Anxious Agitation: 1-Slight > Activity Paroxysmal Sweats: No Perspiration Orientation: 0-Oriented Tacttile Disturbances: 0-None Auditory Disturbances: 0-None Visual Disturbances: 0-None Headache: 0-None Present CIWA-Ar Total Score: 2 - Admission Criteria OASAS Guidelines: Admission for Medically Managed Detox: Requires at least one of the followin. CIWA greater than 12 2. Seizures within the past 24 hours 3. Delirium tremens within the past 24 hours 4. Hallucinations within the past 24 hours 5. Acute intervention needed for co occurring medical disorder 6. Acute intervention needed for co occurring psychiatric disorder 7. Severe withdrawal that cannot be handled at a lower level of care (continued vomiting, continued diarrhea, abnormal vital signs) requiring intravenous medication and/or fluids 8. Admitting History and Physical - Past Medical History ...LMP: 05/08/90 - Smoking History Smoking history: Current some day smoker Have you smoked in the past 12 months: Yes Aproximately how many cigarettes per day: 10 - Alcohol/Substance Use Hx Alcohol Use: Yes Admission ROS [facility] Allergies/Adverse Reactions: Allergies Allergy/AdvReac Type Severity Reaction Status Date / Time mushroom Allergy Severe Rash Verified 08/20/19 12:08 No Known Drug Allergies Allergy Verified 08/20/19 12:08 History of Present Illness: pt here requesting rehab from etoh use , 2 -3 cans of 24 oz beer and 1/2 - 1 pint liquor/day since return from [facility] 08/11/19 where she was in residential tx since May 2019 , latest use yesterday evening , reports she only drinks in the evenings, denies seizures, blackouts or tremors . PMHX : htn, asthma since childhood ( hospitalized, [facility] ) , olya knees OA , chronic back pain , reports uses cane. Psych : SAD , bipolar d/o , reports AH in the past , denies SA ,denies current SI / HI , reports paranoia with crack cocaine. tobacco : occasional cocaine : 50-60 $ x 2 days since return from facility . Exam Limitations: Clinical Condition - Ebola screening Have you traveled outside of the country in the last 21 days: No Have you had contact with anyone from an Ebola affected area: No Do you have a fever: No - Review of Systems Constitutional: No Symptoms Reported EENT: reports: Other (denies dysphagia) Respiratory: reports: No Symptoms reported Cardiac: reports: No Symptoms Reported GI: reports: No Symptoms Reported : reports: No Symptoms Reported Musculoskeletal: reports: Back Pain, Joint Pain (knee pain - chronic) Integumentary: reports: Dryness Neuro: reports: No Symptoms reported Endocrine: reports: See HPI Hematology: reports: No Symptoms Reported Psychiatric: reports: Orientated x3, Depressed Patient History - Patient Medical History Hx Anemia: Yes (Ferrous sulfate, Vitamins) Hx Asthma: Yes Hx Chronic Obstructive Pulmonary Disease (COPD): No Hx Cancer: No Hx Cardiac Disorders: No Hx Congestive Heart Failure: No Hx Hypertension: Yes Hx Hypercholesterolemia: Yes Hx Pacemaker: No HX Cerebrovascular Accident: No Hx Seizures: No Hx Dementia: No Hx Diabetes: No Hx Gastrointestinal Disorders: No Hx Liver Disease: No Hx Genitourinary Disorders: No Hx Sexually Transmitted Disorders: No Hx Renal Disease (ESRD): No Hx Thyroid Disease: No Hx Human Immunodeficiency Virus (HIV): No (last 2016 negative) Hx Hepatitis C: No Hx Depression: Yes Hx Suicide Attempt: No Hx Bipolar Disorder: Yes Hx Schizophrenia: No - Patient Surgical History Past Surgical History: Yes Hx Neurologic Surgery: No Hx Cataract Extraction: No Hx Cardiac Surgery: No Hx Lung Surgery: No Hx Breast Surgery: No Hx Breast Biopsy: No Hx Abdominal Surgery: No Hx Appendectomy: No Hx Cholecystectomy: No Hx Genitourinary Surgery: No Hx Section: Yes (x2) Hx Orthopedic Surgery: Yes (right ankle fx at age 18) Hx Hysterectomy: No Anesthesia Reaction: No - PPD History Results: 05/12/19 - Reproductive History Last Menstrual Period: 05/08/90 - Smoking Cessation Smoking history: Current some day smoker Have you smoked in the past 12 months: Yes Aproximately how many cigarettes per day: 10 Cigars Per Day: 0 Hx Chewing Tobacco Use: No Initiated information on smoking cessation: Yes 'Breaking Loose' booklet given: 08/20/19 - Substances abused Alcohol Substance route: Oral Frequency: Daily Amount used: 1/5th amandeep, & 4 cans beers Age of first use: 10 Date of last use: 08/19/19 Crack Substance route: Smoking Frequency: 1-2 times per week Amount used: $100 Age of first use: 28 Date of last use: 08/19/19 Cocaine Substance route: Inhalation Frequency: 1-2 times per week Amount used: $100 Age of first use: 28 Date of last use: 05/08/19 Admission Physical Exam BHS - Vital Signs Vital Signs: Vital Signs - 24 hr 08/20/19 08/20/19 12:23 12:34 Temperature 98.2 F 98.2 F Pulse Rate 103 H 103 H Respiratory 20 20 Rate Blood Pressure 142/82 142/82 - Physical General Appearance: Yes: No Apparent Distress HEENTM: Yes: EOMI, Hearing grossly Normal, Normocephalic, Normal Voice, Other ( poor dentition , many missing teeth) Respiratory: Yes: Chest Non-Tender, Lungs Clear, Decreased Breath Sounds, No Respiratory Distress, No Accessory Muscle Use Neck: Yes: No masses,lesions,Nodules, Trachea in good position Cardiology: Yes: Regular Rhythm, Regular Rate, S1, S2 Abdominal: Yes: Non Tender, Soft, Protuberent Musculoskeletal: Yes: Joint Stiffness, Joint swelling (bilateral knees), Other (unsteady gait) Extremities: Yes: Normal Range of Motion, Non-Tender Neurological: Yes: Fully Oriented, Alert, Motor Strength 5/5 Integumentary: Yes: Warm - Diagnostic (1) Alcohol dependence Current Visit: Yes Status: Chronic Qualifiers: Substance use status: uncomplicated Qualified Code(s): F10.20 - Alcohol dependence, uncomplicated (2) Cocaine dependence Current Visit: Yes Status: Chronic Qualifiers: Substance use status: uncomplicated Qualified Code(s): F14.20 - Cocaine dependence, uncomplicated Breathalyzer - Breathalyzer Breathalyzer: 0 Urine Drug Screen - Test Device Lot number: [id number] Expiration date: 04/07/21 - Control Is test valid?: Yes - Results Drug screen NEGATIVE: No Urine drug screen results: KULWINDER-Cocaine Inpatient Rehab Admission - Rehab Decision to Admit Inpatient rehab admission?: Yes - Initial Determination Are CD services needed?: Yes Free of communicable disease: Yes Not in need of hospitalization: Yes - Rehab Admission Criteria Previous failed treatment: Yes Poor recovery environment: Yes Comorbidities: Yes Lacks judgement: Yes Patient is meeting Inpatient Rehab admission criteria:: Yes
[2019-08-20] MEDS ORDERED: ALBUTEROL SO4 8 GM HFA INHALER IH PRN (13:24)
[2019-08-20] MEDS ORDERED: ALBUTEROL SO4 0.083% IH SOL 2.5 MG/3 ML VIAL.NEB. NEB PRN (13:26)
[2019-08-20] MEDS ORDERED: LOPERAMIDE HCL 2 MG CAPSULE PO PRN (13:31)
[2019-08-20] MEDS ORDERED: IBUPROFEN 400 MG TABLET (FP) PO PRN (13:31)
[2019-08-20] MEDS ORDERED: hydrOXYzine PAMOATE 25 MG CAPSULE (FP) PO PRN (13:31)
[2019-08-20] MEDS ORDERED: MAG HYDROX/AL HYDROX/SIMETH 30 ML UNIT-DOSE CUP PO PRN (13:31)
[2019-08-20] MEDS ORDERED: MENTHOL/PHENOL 1 EACH UD MM PRN (13:31)
[2019-08-20] MEDS ORDERED: guaiFENesin 200 MG/10 ML 10 ML UNIT-DOSE CUPS PO PRN (13:31)
--- NOTE | 2019-08-20 15:00 | PN ---
[facility] Progress Note (SOAP) Subjective: Patient admitted through psychiatric hospital at [facility] today; stable, known patient. Has had several admissions throughout the year. Last 4 admissions reviewed; no evidence of behavioral issues. she was seen by the psychiatric service at each visit. Patient home medications include zoloft and seroquel, which were ordered on previous admissions. Objective: P/E General: no apparent distress HEENTM: normocephalic Lungs: clear Heart: s1 s2 Neuro: Cn 2-12 intact ABD: +BS MSK: full weight bearing, full ROM, steady gait. 08/20/19 15:07 08/20/19 15:09 Vital Signs (72 hours) 08/20/19 08/20/19 08/20/19 12:23 12:34 15:08 Temperature 98.2 F 98.2 F 97.7 F Pulse Rate 103 H 103 H 94 H Respiratory 20 20 18 Rate Blood Pressure 142/82 142/82 113/82 Assessment: Admitted to [facility] for substance use treatment. 08/20/19 15:08 Plan: Maintain safety Participate in treatment plan Adhere to medication regimen
[2019-08-20 16:56] LABS: HEMOGLOBIN 12.4 GM/dL (10.7-15.3); MCH 30.7 pg (25.7-33.7); MCHC 32.6 g/dl (32.0-36.0); MEAN CELL VOLUME 94.2 fl (80-96); MEAN PLT VOLUME 7.6 fl (7.5-11.1); PLATELET COUNT 287 K/MM3 (134-434); RBC 4.03 M/mm3 (3.60-5.2)
[2019-08-20] MEDS: MAGNESIUM HYDROX 2400MG/30ML ORAL SUSPENSION 30 ML CUP PO PRN (17:03)
[2019-08-20] MEDS: amLODIPine BESYLATE 5 MG TABLET (FP) PO SCH (17:03)
[2019-08-20] MEDS: COLLOIDAL OATMEAL 1 BAR EACH TP PRN (17:03)
[2019-08-20] MEDS: ASPIRIN 81 MG CHEWABLE TABLETS PO SCH (17:04)
[2019-08-20] MEDS: PANTOPRAZOLE 40 MG TABLET (FP) PO SCH (17:04)
[2019-08-20] MEDS: metFORMIN HCL 500 MG TABLET (FP) PO SCH (17:04)
[2019-08-20 17:09] LABS: ALBUMIN 3.7 g/dl (3.4-5.0); BILIRUBIN,TOTAL 0.3 mg/dL (0.2-1); BLOOD UREA NITROGEN 16.7 mg/dL (7-18); CALCIUM 8.6 mg/dL (8.5-10.1); TOT PROT 7.2 g/dl (6.4-8.2)
[2019-08-20] MEDS: METHYL SALICYLATE/MENTHOL OINT 30 GM TUBE TP SCH ×2 (17:52→21:58)
[2019-08-20] MEDS: MINERAL OIL/PETROLAT/WATER TOPICAL CREAM 113 GM JAR TP SCH (17:53)
[2019-08-20] MEDS: BUDESONIDE/FORMETEROL FUMARATE 160/4.5 mcg INHALER IH SCH (21:38)
[2019-08-20] MEDS: MELATONIN 5 MG TABLETS PO PRN (21:40)
[2019-08-20] MEDS: MONTELUKAST NA 10 MG TABLET PO SCH (21:40)
[2019-08-20] MEDS: ATORVASTATIN CA 10 MG TABLET (FP) PO SCH (21:40)
[2019-08-20] MEDS ORDERED: PT OWN MED DRAWER 7, Y5N ONE (21:40)
[2019-08-20] MEDS: THIAMINE HCL 100 MG TABLET (FP) PO SCH (21:41)
[2019-08-20] MEDS: CHLORHEXIDINE GLUCONATE 118 ML MOUTHWASH MM SCH (21:42)
[2019-08-20] MEDS: ACETAMINOPHEN 325 MG TABLET (FP) PO PRN (21:43)
[2019-08-21] MEDS: IBUPROFEN 400 MG TABLET (FP) PO PRN ×2 (06:46→21:24)
[2019-08-21] MEDS: metFORMIN HCL 500 MG TABLET (FP) PO SCH ×2 (06:47→17:22)
[2019-08-21] MEDS ORDERED: PT OWN MED DRAWER 7, Y5N ONE (08:49)
[2019-08-21] MEDS: METHYL SALICYLATE/MENTHOL OINT 30 GM TUBE TP SCH ×2 (09:29→21:27)
[2019-08-21] MEDS: ASPIRIN 81 MG CHEWABLE TABLETS PO SCH (09:30)
[2019-08-21] MEDS: PANTOPRAZOLE 40 MG TABLET (FP) PO SCH (09:30)
[2019-08-21] MEDS: ASCORBIC ACID 500 MG TABLET (FP) PO SCH (09:30)
[2019-08-21] MEDS: amLODIPine BESYLATE 5 MG TABLET (FP) PO SCH (09:30)
[2019-08-21] MEDS: BUDESONIDE/FORMETEROL FUMARATE 160/4.5 mcg INHALER IH SCH ×2 (09:30→21:23)
[2019-08-21] MEDS: PRENATAL VITAMINS W/ FOLIC ACID TABLET (FP) PO SCH (09:30)
[2019-08-21] MEDS ORDERED: CYCLOBENZAPRINE HCL 10 MG TABLET (FP) PO PRN (10:06)
[2019-08-21] MEDS: ACETAMINOPHEN 325 MG TABLET (FP) PO PRN (10:11)
[2019-08-21] MEDS: MAGNESIUM CITRATE 300 ML BOTTLE PO PRN (10:18)
[2019-08-21] MEDS: CHLORHEXIDINE GLUCONATE 118 ML MOUTHWASH MM SCH ×2 (10:23→21:23)
[2019-08-21] MEDS: FOLIC ACID 1 MG TABLET (FP) PO SCH (10:25)
[2019-08-21] MEDS: MINERAL OIL/PETROLAT/WATER TOPICAL CREAM 113 GM JAR TP SCH (10:25)
[2019-08-21] MEDS ORDERED: CYANOCOBALAMIN 1,000 MCG TABLET (FP) PO SCH (10:30)
[2019-08-21] MEDS ORDERED: SERTRALINE HCL 50 MG TABLET (FP) PO ONE (10:30)
[2019-08-21] MEDS: HYDROCHLOROTHIAZIDE 12.5 MG CAPSULE (FP) PO SCH (11:10)
[2019-08-21] MEDS: MONTELUKAST NA 10 MG TABLET PO SCH (21:23)
[2019-08-21] MEDS: ATORVASTATIN CA 10 MG TABLET (FP) PO SCH (21:23)
[2019-08-21] MEDS: CYCLOBENZAPRINE HCL 10 MG TABLET (FP) PO PRN (21:24)
[2019-08-21] MEDS: MELATONIN 5 MG TABLETS PO PRN (21:25)
[2019-08-21] MEDS: THIAMINE HCL 100 MG TABLET (FP) PO SCH (21:25)
[2019-08-22] MEDS: metFORMIN HCL 500 MG TABLET (FP) PO SCH ×2 (07:02→17:06)
[2019-08-22] MEDS ORDERED: PT OWN MED DRAWER 7, Y5N ONE (08:26)
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
[2019-08-22] MEDS: ASCORBIC ACID 500 MG TABLET (FP) PO SCH (09:38)
[2019-08-22] MEDS: MINERAL OIL/PETROLAT/WATER TOPICAL CREAM 113 GM JAR TP SCH (09:38)
[2019-08-22] MEDS: PRENATAL VITAMINS W/ FOLIC ACID TABLET (FP) PO SCH (09:39)
[2019-08-22] MEDS: amLODIPine BESYLATE 5 MG TABLET (FP) PO SCH (09:39)
[2019-08-22] MEDS: ASPIRIN 81 MG CHEWABLE TABLETS PO SCH (09:39)
[2019-08-22] MEDS: FOLIC ACID 1 MG TABLET (FP) PO SCH (09:39)
[2019-08-22] MEDS: HYDROCHLOROTHIAZIDE 12.5 MG CAPSULE (FP) PO SCH (09:39)
[2019-08-22] MEDS: PANTOPRAZOLE 40 MG TABLET (FP) PO SCH (09:39)
[2019-08-22] MEDS: CYCLOBENZAPRINE HCL 10 MG TABLET (FP) PO PRN ×2 (09:41→21:09)
[2019-08-22] MEDS: CHLORHEXIDINE GLUCONATE 118 ML MOUTHWASH MM SCH ×2 (09:50→21:07)
[2019-08-22] MEDS: METHYL SALICYLATE/MENTHOL OINT 30 GM TUBE TP SCH ×2 (09:50→21:07)
[2019-08-22] MEDS: BUDESONIDE/FORMETEROL FUMARATE 160/4.5 mcg INHALER IH SCH ×2 (09:51→21:07)
[2019-08-22 11:25] LABS: URINE APPEARANCE CLOUDY; URINE BILIRUBIN NEGATIVE (NEGATIVE); URINE COLOR YELLOW; URINE GLUCOSE (UA) NEGATIVE (NEGATIVE); URINE KETONE NEGATIVE (NEGATIVE); URINE LEUK ESTERASE NEGATIVE (NEGATIVE); URINE NITRITE NEGATIVE (NEGATIVE); URINE PROTEIN NEGATIVE (NEGATIVE); URINE UROBILINOGEN 0.2 mg/dL (0.2-1.0)
[2019-08-22] MEDS: MONTELUKAST NA 10 MG TABLET PO SCH (21:07)
[2019-08-22] MEDS: THIAMINE HCL 100 MG TABLET (FP) PO SCH (21:07)
[2019-08-22] MEDS: ATORVASTATIN CA 10 MG TABLET (FP) PO SCH (21:07)
[2019-08-22] MEDS: MELATONIN 5 MG TABLETS PO PRN (21:08)
[2019-08-22] MEDS: IBUPROFEN 400 MG TABLET (FP) PO PRN (21:08)
[2019-08-22] MEDS: SERTRALINE HCL 50 MG TABLET (FP) PO SCH (21:11)
[2019-08-23] MEDS: P-EPHED 60MG/TRIPROLIDI 2.5MG TABLET PO PRN ×2 (06:38→22:00)
[2019-08-23] MEDS: metFORMIN HCL 500 MG TABLET (FP) PO SCH ×2 (06:38→16:55)
[2019-08-23] MEDS: IBUPROFEN 400 MG TABLET (FP) PO PRN (06:39)
[2019-08-23] MEDS ORDERED: PT OWN MED DRAWER 7, Y5N ONE (09:11)
[2019-08-23] MEDS: ASCORBIC ACID 500 MG TABLET (FP) PO SCH (09:39)
[2019-08-23] MEDS: HYDROCHLOROTHIAZIDE 12.5 MG CAPSULE (FP) PO SCH (09:39)
[2019-08-23] MEDS: PRENATAL VITAMINS W/ FOLIC ACID TABLET (FP) PO SCH (09:40)
[2019-08-23] MEDS: BUDESONIDE/FORMETEROL FUMARATE 160/4.5 mcg INHALER IH SCH ×2 (09:40→21:58)
[2019-08-23] MEDS: ASPIRIN 81 MG CHEWABLE TABLETS PO SCH (09:40)
[2019-08-23] MEDS: amLODIPine BESYLATE 5 MG TABLET (FP) PO SCH (09:40)
[2019-08-23] MEDS: FOLIC ACID 1 MG TABLET (FP) PO SCH (09:40)
[2019-08-23] MEDS: PANTOPRAZOLE 40 MG TABLET (FP) PO SCH (09:40)
[2019-08-23] MEDS: METHYL SALICYLATE/MENTHOL OINT 30 GM TUBE TP SCH ×2 (09:41→21:58)
[2019-08-23] MEDS: CHLORHEXIDINE GLUCONATE 118 ML MOUTHWASH MM SCH ×2 (09:41→21:58)
[2019-08-23] MEDS: MINERAL OIL/PETROLAT/WATER TOPICAL CREAM 113 GM JAR TP SCH (09:42)
[2019-08-23] MEDS: THIAMINE HCL 100 MG TABLET (FP) PO SCH (21:56)
[2019-08-23] MEDS: SERTRALINE HCL 50 MG TABLET (FP) PO SCH (21:57)
[2019-08-23] MEDS: CYCLOBENZAPRINE HCL 10 MG TABLET (FP) PO PRN (21:57)
[2019-08-23] MEDS: ATORVASTATIN CA 10 MG TABLET (FP) PO SCH (21:57)
[2019-08-23] MEDS: MELATONIN 5 MG TABLETS PO PRN (21:57)
[2019-08-23] MEDS: MONTELUKAST NA 10 MG TABLET PO SCH (21:57)
[2019-08-24] MEDS: CYCLOBENZAPRINE HCL 10 MG TABLET (FP) PO PRN ×2 (06:31→21:27)
[2019-08-24] MEDS: metFORMIN HCL 500 MG TABLET (FP) PO SCH ×2 (06:32→16:41)
[2019-08-24] MEDS: ASPIRIN 81 MG CHEWABLE TABLETS PO SCH (09:38)
[2019-08-24] MEDS: METHYL SALICYLATE/MENTHOL OINT 30 GM TUBE TP SCH ×2 (09:38→21:28)
[2019-08-24] MEDS: MINERAL OIL/PETROLAT/WATER TOPICAL CREAM 113 GM JAR TP SCH (09:39)
[2019-08-24] MEDS: FOLIC ACID 1 MG TABLET (FP) PO SCH (09:39)
[2019-08-24] MEDS: CHLORHEXIDINE GLUCONATE 118 ML MOUTHWASH MM SCH ×2 (09:39→21:29)
[2019-08-24] MEDS: ASCORBIC ACID 500 MG TABLET (FP) PO SCH (09:40)
[2019-08-24] MEDS: PANTOPRAZOLE 40 MG TABLET (FP) PO SCH (09:40)
[2019-08-24] MEDS: PRENATAL VITAMINS W/ FOLIC ACID TABLET (FP) PO SCH (09:40)
[2019-08-24] MEDS: HYDROCHLOROTHIAZIDE 12.5 MG CAPSULE (FP) PO SCH (09:40)
[2019-08-24] MEDS: BUDESONIDE/FORMETEROL FUMARATE 160/4.5 mcg INHALER IH SCH ×2 (09:40→21:28)
[2019-08-24] MEDS: amLODIPine BESYLATE 5 MG TABLET (FP) PO SCH (09:40)
[2019-08-24] MEDS: IBUPROFEN 400 MG TABLET (FP) PO PRN (09:42)
[2019-08-24] MEDS: P-EPHED 60MG/TRIPROLIDI 2.5MG TABLET PO PRN ×2 (09:42→23:55)
[2019-08-24] MEDS: MELATONIN 5 MG TABLETS PO PRN (21:26)
[2019-08-24] MEDS: ATORVASTATIN CA 10 MG TABLET (FP) PO SCH (21:26)
[2019-08-24] MEDS: SERTRALINE HCL 50 MG TABLET (FP) PO SCH (21:26)
[2019-08-24] MEDS: MONTELUKAST NA 10 MG TABLET PO SCH (21:26)
[2019-08-24] MEDS: THIAMINE HCL 100 MG TABLET (FP) PO SCH (21:26)
[2019-08-25] MEDS: metFORMIN HCL 500 MG TABLET (FP) PO SCH ×2 (06:45→17:04)
[2019-08-25] MEDS: CYCLOBENZAPRINE HCL 10 MG TABLET (FP) PO PRN (06:45)
[2019-08-25] MEDS: MAGNESIUM HYDROX 2400MG/30ML ORAL SUSPENSION 30 ML CUP PO PRN (06:51)
[2019-08-25] MEDS: FOLIC ACID 1 MG TABLET (FP) PO SCH (09:39)
[2019-08-25] MEDS: ASPIRIN 81 MG CHEWABLE TABLETS PO SCH (09:39)
[2019-08-25] MEDS: PRENATAL VITAMINS W/ FOLIC ACID TABLET (FP) PO SCH (09:39)
[2019-08-25] MEDS: HYDROCHLOROTHIAZIDE 12.5 MG CAPSULE (FP) PO SCH (09:39)
[2019-08-25] MEDS: amLODIPine BESYLATE 5 MG TABLET (FP) PO SCH (09:40)
[2019-08-25] MEDS: BUDESONIDE/FORMETEROL FUMARATE 160/4.5 mcg INHALER IH SCH ×2 (09:40→21:42)
[2019-08-25] MEDS: PANTOPRAZOLE 40 MG TABLET (FP) PO SCH (09:40)
[2019-08-25] MEDS: MINERAL OIL/PETROLAT/WATER TOPICAL CREAM 113 GM JAR TP SCH (09:40)
[2019-08-25] MEDS: CHLORHEXIDINE GLUCONATE 118 ML MOUTHWASH MM SCH ×2 (09:41→21:43)
[2019-08-25] MEDS: METHYL SALICYLATE/MENTHOL OINT 30 GM TUBE TP SCH ×2 (09:41→21:43)
[2019-08-25] MEDS: ASCORBIC ACID 500 MG TABLET (FP) PO SCH (09:41)
[2019-08-25] MEDS: P-EPHED 60MG/TRIPROLIDI 2.5MG TABLET PO PRN (09:43)
[2019-08-25] MEDS: IBUPROFEN 400 MG TABLET (FP) PO PRN (09:44)
[2019-08-25] MEDS: LIDOCAINE 5% TOPICAL PATCH TP SCH (14:10)
[2019-08-25] MEDS: THIAMINE HCL 100 MG TABLET (FP) PO SCH (21:40)
[2019-08-25] MEDS: MONTELUKAST NA 10 MG TABLET PO SCH (21:41)
[2019-08-25] MEDS: SERTRALINE HCL 50 MG TABLET (FP) PO SCH (21:41)
[2019-08-25] MEDS: LIDOCAINE PATCH REMOVAL MC SCH (21:42)
[2019-08-25] MEDS: ATORVASTATIN CA 10 MG TABLET (FP) PO SCH (21:43)
[2019-08-26] MEDS: metFORMIN HCL 500 MG TABLET (FP) PO SCH ×2 (06:20→17:02)
[2019-08-26] MEDS: METHYL SALICYLATE/MENTHOL OINT 30 GM TUBE TP SCH ×2 (09:38→21:28)
[2019-08-26] MEDS: ASPIRIN 81 MG CHEWABLE TABLETS PO SCH (09:38)
[2019-08-26] MEDS: CHLORHEXIDINE GLUCONATE 118 ML MOUTHWASH MM SCH ×2 (09:38→21:28)
[2019-08-26] MEDS: MINERAL OIL/PETROLAT/WATER TOPICAL CREAM 113 GM JAR TP SCH (09:39)
[2019-08-26] MEDS: FOLIC ACID 1 MG TABLET (FP) PO SCH (09:39)
[2019-08-26] MEDS: LIDOCAINE 5% TOPICAL PATCH TP SCH (09:39)
[2019-08-26] MEDS: PANTOPRAZOLE 40 MG TABLET (FP) PO SCH (09:40)
[2019-08-26] MEDS: ASCORBIC ACID 500 MG TABLET (FP) PO SCH (09:40)
[2019-08-26] MEDS: PRENATAL VITAMINS W/ FOLIC ACID TABLET (FP) PO SCH (09:40)
[2019-08-26] MEDS: BUDESONIDE/FORMETEROL FUMARATE 160/4.5 mcg INHALER IH SCH ×2 (09:40→21:27)
[2019-08-26] MEDS: CYCLOBENZAPRINE HCL 10 MG TABLET (FP) PO PRN ×2 (09:41→21:25)
[2019-08-26] MEDS: HYDROCHLOROTHIAZIDE 12.5 MG CAPSULE (FP) PO SCH (09:47)
[2019-08-26] MEDS: amLODIPine BESYLATE 5 MG TABLET (FP) PO SCH (09:52)
--- NOTE | 2019-08-26 12:12 | PN ---
BHS Progress Note (SOAP) Subjective: c/o knees swelling Objective: 08/26/19 12:10 CBC, BMP 08/20/19 12:45 08/20/19 13:40 Vital Signs Period Temp Pulse Resp BP Sys/[place] Pulse Ox Last 24 Hr 97.5 F 98-114 16-16 103-134/69-85 General: No apparent distress HEENTM: Normocephalic Neck: supple Lung: clear Heart: s1 s2 ABD: obese MSK: Limited lower extremity ROM related to non-pitting edema Extremities: Color equal bilaterally; +capillary refill 08/26/19 12:13 08/26/19 12:17 Assessment: Bilateral lower extremity edema 08/26/19 12:13 Plan: encouraged patient to walk and elevate legs when at rest. Compression stockings ordered.
[2019-08-26] MEDS: ATORVASTATIN CA 10 MG TABLET (FP) PO SCH (21:25)
[2019-08-26] MEDS: MONTELUKAST NA 10 MG TABLET PO SCH (21:25)
[2019-08-26] MEDS: THIAMINE HCL 100 MG TABLET (FP) PO SCH (21:25)
[2019-08-26] MEDS: MELATONIN 5 MG TABLETS PO PRN (21:25)
[2019-08-26] MEDS: SERTRALINE HCL 50 MG TABLET (FP) PO SCH (21:25)
[2019-08-26] MEDS: IBUPROFEN 400 MG TABLET (FP) PO PRN (21:26)
[2019-08-26] MEDS: LIDOCAINE PATCH REMOVAL MC SCH (21:28)
[2019-08-27] MEDS: metFORMIN HCL 500 MG TABLET (FP) PO SCH ×2 (06:18→16:50)
[2019-08-27] MEDS ORDERED: PT OWN MED DRAWER 7, Y5N ONE ×2 (08:53→20:29)
[2019-08-27] MEDS: LIDOCAINE 5% TOPICAL PATCH TP SCH (10:06)
[2019-08-27] MEDS: FOLIC ACID 1 MG TABLET (FP) PO SCH (10:06)
[2019-08-27] MEDS: amLODIPine BESYLATE 5 MG TABLET (FP) PO SCH (10:07)
[2019-08-27] MEDS: PANTOPRAZOLE 40 MG TABLET (FP) PO SCH (10:07)
[2019-08-27] MEDS: PRENATAL VITAMINS W/ FOLIC ACID TABLET (FP) PO SCH (10:07)
[2019-08-27] MEDS: HYDROCHLOROTHIAZIDE 12.5 MG CAPSULE (FP) PO SCH (10:07)
[2019-08-27] MEDS: ASPIRIN 81 MG CHEWABLE TABLETS PO SCH (10:07)
[2019-08-27] MEDS: ASCORBIC ACID 500 MG TABLET (FP) PO SCH (10:07)
[2019-08-27] MEDS: METHYL SALICYLATE/MENTHOL OINT 30 GM TUBE TP SCH ×2 (10:08→21:12)
[2019-08-27] MEDS: CHLORHEXIDINE GLUCONATE 118 ML MOUTHWASH MM SCH ×2 (10:08→21:13)
[2019-08-27] MEDS: MINERAL OIL/PETROLAT/WATER TOPICAL CREAM 113 GM JAR TP SCH (10:08)
[2019-08-27] MEDS: BUDESONIDE/FORMETEROL FUMARATE 160/4.5 mcg INHALER IH SCH ×2 (10:08→21:10)
[2019-08-27] MEDS: IBUPROFEN 400 MG TABLET (FP) PO PRN ×2 (15:37→23:49)
[2019-08-27] MEDS: MONTELUKAST NA 10 MG TABLET PO SCH (21:10)
[2019-08-27] MEDS: ATORVASTATIN CA 10 MG TABLET (FP) PO SCH (21:10)
[2019-08-27] MEDS: SERTRALINE HCL 50 MG TABLET (FP) PO SCH (21:10)
[2019-08-27] MEDS: THIAMINE HCL 100 MG TABLET (FP) PO SCH (21:11)
[2019-08-27] MEDS: CYCLOBENZAPRINE HCL 10 MG TABLET (FP) PO PRN (21:11)
[2019-08-27] MEDS: MELATONIN 5 MG TABLETS PO PRN (21:11)
[2019-08-27] MEDS: LIDOCAINE PATCH REMOVAL MC SCH (21:14)
[2019-08-27] MEDS: COLLOIDAL OATMEAL 1 BAR EACH TP PRN (21:21)
[2019-08-28] MEDS: metFORMIN HCL 500 MG TABLET (FP) PO SCH ×2 (06:48→16:46)
[2019-08-28] MEDS: CHLORHEXIDINE GLUCONATE 118 ML MOUTHWASH MM SCH ×2 (09:34→21:43)
[2019-08-28] MEDS: amLODIPine BESYLATE 5 MG TABLET (FP) PO SCH (09:34)
[2019-08-28] MEDS: PRENATAL VITAMINS W/ FOLIC ACID TABLET (FP) PO SCH (09:34)
[2019-08-28] MEDS: PANTOPRAZOLE 40 MG TABLET (FP) PO SCH (09:34)
[2019-08-28] MEDS: HYDROCHLOROTHIAZIDE 12.5 MG CAPSULE (FP) PO SCH (09:34)
[2019-08-28] MEDS: METHYL SALICYLATE/MENTHOL OINT 30 GM TUBE TP SCH ×2 (09:34→21:44)
[2019-08-28] MEDS: FOLIC ACID 1 MG TABLET (FP) PO SCH (09:34)
[2019-08-28] MEDS: ASPIRIN 81 MG CHEWABLE TABLETS PO SCH (09:34)
[2019-08-28] MEDS: ASCORBIC ACID 500 MG TABLET (FP) PO SCH (09:35)
[2019-08-28] MEDS: BUDESONIDE/FORMETEROL FUMARATE 160/4.5 mcg INHALER IH SCH ×2 (09:35→21:46)
[2019-08-28] MEDS: MINERAL OIL/PETROLAT/WATER TOPICAL CREAM 113 GM JAR TP SCH (09:36)
[2019-08-28] MEDS: LIDOCAINE 5% TOPICAL PATCH TP SCH (09:36)
[2019-08-28] MEDS: P-EPHED 60MG/TRIPROLIDI 2.5MG TABLET PO PRN (09:37)
[2019-08-28] MEDS: CYCLOBENZAPRINE HCL 10 MG TABLET (FP) PO PRN ×2 (09:37→21:44)
[2019-08-28] MEDS: IBUPROFEN 400 MG TABLET (FP) PO PRN ×2 (09:38→21:44)
[2019-08-28] MEDS ORDERED: PT OWN MED DRAWER 7, Y5N ONE ×2 (16:47→21:42)
[2019-08-28] MEDS: BENZOCAINE 20 % GEL TUBE MM PRN (21:41)
[2019-08-28] MEDS: ATORVASTATIN CA 10 MG TABLET (FP) PO SCH (21:43)
[2019-08-28] MEDS: SERTRALINE HCL 50 MG TABLET (FP) PO SCH (21:43)
[2019-08-28] MEDS: LIDOCAINE PATCH REMOVAL MC SCH (21:44)
[2019-08-28] MEDS: MONTELUKAST NA 10 MG TABLET PO SCH (21:44)
[2019-08-28] MEDS: THIAMINE HCL 100 MG TABLET (FP) PO SCH (21:45)
[2019-08-28] MEDS: MELATONIN 5 MG TABLETS PO PRN (21:46)
[2019-08-29] MEDS: metFORMIN HCL 500 MG TABLET (FP) PO SCH ×2 (06:54→16:51)
[2019-08-29] MEDS: BENZOCAINE 20 % GEL TUBE MM PRN (08:00)
[2019-08-29] MEDS ORDERED: PT OWN MED DRAWER 7, Y5N ONE (08:00)
[2019-08-29] MEDS: IBUPROFEN 400 MG TABLET (FP) PO PRN ×2 (08:00→15:18)
[2019-08-29] MEDS: LIDOCAINE 5% TOPICAL PATCH TP SCH (09:32)
[2019-08-29] MEDS: CHLORHEXIDINE GLUCONATE 118 ML MOUTHWASH MM SCH ×2 (09:32→21:15)
[2019-08-29] MEDS: METHYL SALICYLATE/MENTHOL OINT 30 GM TUBE TP SCH ×2 (09:33→21:17)
[2019-08-29] MEDS: PRENATAL VITAMINS W/ FOLIC ACID TABLET (FP) PO SCH (09:33)
[2019-08-29] MEDS: BUDESONIDE/FORMETEROL FUMARATE 160/4.5 mcg INHALER IH SCH ×2 (09:33→21:15)
[2019-08-29] MEDS: FOLIC ACID 1 MG TABLET (FP) PO SCH (09:33)
[2019-08-29] MEDS: amLODIPine BESYLATE 5 MG TABLET (FP) PO SCH (09:33)
[2019-08-29] MEDS: HYDROCHLOROTHIAZIDE 12.5 MG CAPSULE (FP) PO SCH (09:33)
[2019-08-29] MEDS: MINERAL OIL/PETROLAT/WATER TOPICAL CREAM 113 GM JAR TP SCH (09:33)
[2019-08-29] MEDS: ASPIRIN 81 MG CHEWABLE TABLETS PO SCH (09:33)
[2019-08-29] MEDS: CYCLOBENZAPRINE HCL 10 MG TABLET (FP) PO PRN ×2 (09:34→21:14)
[2019-08-29] MEDS: ASCORBIC ACID 500 MG TABLET (FP) PO SCH (09:34)
[2019-08-29] MEDS: PANTOPRAZOLE 40 MG TABLET (FP) PO SCH (09:34)
[2019-08-29] MEDS: ACETAMINOPHEN 325 MG TABLET (FP) PO PRN ×2 (12:34→21:16)
[2019-08-29] MEDS: MAGNESIUM HYDROX 2400MG/30ML ORAL SUSPENSION 30 ML CUP PO PRN (15:18)
[2019-08-29] MEDS: MAGNESIUM CITRATE 300 ML BOTTLE PO PRN (20:05)
[2019-08-29] MEDS: SERTRALINE HCL 50 MG TABLET (FP) PO SCH (21:14)
[2019-08-29] MEDS: THIAMINE HCL 100 MG TABLET (FP) PO SCH (21:14)
[2019-08-29] MEDS: ATORVASTATIN CA 10 MG TABLET (FP) PO SCH (21:14)
[2019-08-29] MEDS: MONTELUKAST NA 10 MG TABLET PO SCH (21:14)
[2019-08-29] MEDS: LIDOCAINE PATCH REMOVAL MC SCH (21:15)
[2019-08-30] MEDS: metFORMIN HCL 500 MG TABLET (FP) PO SCH ×2 (07:51→16:29)
[2019-08-30] MEDS: IBUPROFEN 400 MG TABLET (FP) PO PRN ×2 (07:52→21:36)
[2019-08-30] MEDS ORDERED: PT OWN MED DRAWER 7, Y5N ONE ×2 (07:54→08:39)
[2019-08-30] MEDS: ASPIRIN 81 MG CHEWABLE TABLETS PO SCH (09:49)
[2019-08-30] MEDS: METHYL SALICYLATE/MENTHOL OINT 30 GM TUBE TP SCH ×2 (09:49→21:37)
[2019-08-30] MEDS: FOLIC ACID 1 MG TABLET (FP) PO SCH (09:50)
[2019-08-30] MEDS: LIDOCAINE 5% TOPICAL PATCH TP SCH (09:50)
[2019-08-30] MEDS: CHLORHEXIDINE GLUCONATE 118 ML MOUTHWASH MM SCH ×2 (09:50→21:37)
[2019-08-30] MEDS: MINERAL OIL/PETROLAT/WATER TOPICAL CREAM 113 GM JAR TP SCH (09:50)
[2019-08-30] MEDS: HYDROCHLOROTHIAZIDE 12.5 MG CAPSULE (FP) PO SCH (09:50)
[2019-08-30] MEDS: PANTOPRAZOLE 40 MG TABLET (FP) PO SCH (09:51)
[2019-08-30] MEDS: amLODIPine BESYLATE 5 MG TABLET (FP) PO SCH (09:51)
[2019-08-30] MEDS: ASCORBIC ACID 500 MG TABLET (FP) PO SCH (09:51)
[2019-08-30] MEDS: BUDESONIDE/FORMETEROL FUMARATE 160/4.5 mcg INHALER IH SCH ×2 (09:51→21:38)
[2019-08-30] MEDS: PRENATAL VITAMINS W/ FOLIC ACID TABLET (FP) PO SCH (09:51)
[2019-08-30] MEDS: CYCLOBENZAPRINE HCL 10 MG TABLET (FP) PO PRN ×2 (09:53→21:35)
--- NOTE | 2019-08-30 11:44 | PN ---
[facility] Progress Note Note: Patient is scheduled for discharge tomorrow. Script for 30 days supply of Zoloft 50 mg/hs will be electronically transmitted to [facility] at [address] [place] [id number]
--- NOTE | 2019-08-30 14:21 | DS ---
[facility] Rehab Discharge Summary - [facility] Rehab Discharge Summary Admission Date: 08/20/19 Discharge Date: 08/31/19 - History Present History: Alcohol dependence, Cocaine dependence Pertinent Past History: etoh use , 2 -3 cans of 24 oz beer and 1/2 -1 pint liquor/day since return from [facility] 08/11/19 where she was in residential tx since May 2019 ,, reports she only drinks in the evenings, denies seizures, blackouts or tremors . PMHX : htn, asthma since childhood ( hospitalized, [facility] ) , olya knees OA , chronic back pain , reports uses cane. Psych : SAD , bipolar d/o , reports AH in the past , denies SA ,denies current SI / HI , reports paranoia with crack cocaine. tobacco : occasional cocaine : 50-60 $ x 2 days since return from facility . - Discharge Physical Exam Vital Signs: Vital Signs Temperature 97.8 F 08/30/19 07:09 Pulse Rate 105 H 08/30/19 09:15 Respiratory Rate 18 08/30/19 07:09 Blood Pressure 114/77 08/30/19 09:15 O2 Sat by Pulse Oximetry (%) Pertinent Admission Physical Exam Findings: General Appearance: No apparent Distress HEENTM: Normocephalic, poor dentition , many missing teeth Respiratory: Lungs Clear, Neck: Supple,Trachea in good position Cardiology: S1, S2 Abdominal: Yes: Non Tender, Soft, Protuberent Musculoskeletal: Joint Stiffness, Joint swelling (bilateral knees), Neurological: CN 2-12 intact - Treatment Discharge Condition: Outpatient referral accepted (Medically stable for discharge. Will return to [facility]) Hospital Course: Patient attended groups, had 1:1 with counselor. Was seen by psychiatric service. During her stay she was treated for swelling bilateral legs and a gum abscess. She was adherent to her medication regimen and her treatment plan. - Medication Discharge Medications: Ambulatory Orders Fluticasone/Salmeterol [Advair 250-50 Diskus] 1 each IH BID #1 disk.w.dev Folic Acid 1 mg PO DAILY 02/12/19 Multivitamin [Multiple Vitamins] 1 each PO DAILY 02/12/19 Thiamine Mononitrate [Vitamin B-1] 100 mg PO DAILY 02/12/19 Ibuprofen [Motrin -] 600 mg PO TID PRN 03/19/19 Sertraline HCl [Zoloft -] 50 mg PO DAILY #30 tablet 03/29/19 Lanolin Alcohol/Mo/W.pet/[place] [Eucerin Creme] 480 gm TP DAILY 05/10/19 Colloidal Oatmeal [Aveeno Soap -] 1 applic TP DAILY PRN bar 05/14/19 Vitamin B Complex [B Complex] 1 each PO DAILY 08/21/19 Albuterol Sulfate Inhaler - [Ventolin HFA Inhaler -] 2 puff IH Q4H PRN #1 inhaler 08/30/19 Amlodipine Besylate [Norvasc -] 5 mg PO DAILY #14 tablet 08/30/19 Ascorbate Calcium [Vitamin C] 500 mg PO DAILY #14 tablet 08/30/19 Aspirin [ASA -] 81 mg PO DAILY #30 tab.chew 08/30/19 Atorvastatin Ca [Lipitor] 10 mg PO HS #30 tablet 08/30/19 Budesonide/Formeterol Fumarate [SYMBICORT 160/4.5mcg -] 2 puff IH BID #1 inhaler 08/30/19 Hydrochlorothiazide [Hctz -] 12.5 mg PO DAILY #30 cap 08/30/19 Metformin HCl [Glucophage] 500 mg PO BID #30 tablet 08/30/19 Montelukast Na [Singulair -] 10 mg PO HS #30 tablet 08/30/19 Pantoprazole Sodium [Protonix -] 40 mg PO DAILY #14 tablet.ec 08/30/19 Quetiapine Fumarate [Seroquel -] 50 mg PO HS #30 tablet 08/30/19 Sertraline HCl [Zoloft -] 50 mg PO HS #30 tablet 08/30/19 - Medication-Assisted Treatment (MAT) Medication-Assisted Treatment (MAT): No - Discharge Instructions Diet, activity, other medical instructions: Diet: as tolerated Activity: as tolerated Other medical instructions: please follow up with aftercare referral. - Diagnosis (1) Alcohol dependence Current Visit: Yes Status: Chronic Qualifiers: Substance use status: uncomplicated Qualified Code(s): F10.20 - Alcohol dependence, uncomplicated (2) Cocaine dependence Current Visit: Yes Status: Chronic Qualifiers: Substance use status: uncomplicated Qualified Code(s): F14.20 - Cocaine dependence, uncomplicated - Follow-up Referral Minutes to complete discharge: 20 - AMA Did Patient Leave Against Medical Advice: No
[2019-08-30] MEDS: ATORVASTATIN CA 10 MG TABLET (FP) PO SCH (21:35)
[2019-08-30] MEDS: THIAMINE HCL 100 MG TABLET (FP) PO SCH (21:35)
[2019-08-30] MEDS: LIDOCAINE PATCH REMOVAL MC SCH (21:35)
[2019-08-30] MEDS: SERTRALINE HCL 50 MG TABLET (FP) PO SCH (21:35)
[2019-08-30] MEDS: MONTELUKAST NA 10 MG TABLET PO SCH (21:35)
[2019-08-30] MEDS ORDERED: AMOXICILLIN 500 MG CAPSULE (FP) PO SCH (22:00)
[2019-08-31] MEDS: metFORMIN HCL 500 MG TABLET (FP) PO SCH (06:08)
[2019-08-31 06:41] VITALS: BP 135/90; PULSE 106; TEMP 98
== END 2019-08-31 06:55 | disposition home or self-care (01) | DRG 772 ==
LOC: YASAS 11:37 → Y3E 14:42
PROVIDERS: ADMIT Neuromusculoskeletal Medicine & OMM; ATTEND Neuromusculoskeletal Medicine & OMM
PROC: HZ42ZZZ Group Counseling for Substance Abuse Treatment, Cognitive-Behavioral (ICD-10-PCS; principal; 2019-08-20)
DX: F10.20 Alcohol dependence, uncomplicated (principal); F14.20 Cocaine dependence, uncomplicated; F17.210 Nicotine dependence, cigarettes, uncomplicated; F39 Unspecified mood [affective] disorder; F19.24 Other psychoactive substance dependence with psychoactive substance-induced mood disorder; K21.9 Gastro-esophageal reflux disease without esophagitis; I10 Essential (primary) hypertension; J45.909 Unspecified asthma, uncomplicated; M17.0 Bilateral primary osteoarthritis of knee; M54.5 Low back pain; G89.29 Other chronic pain; E78.5 Hyperlipidemia, unspecified; R60.0 Localized edema; E66.9 Obesity, unspecified; Z68.35 Body mass index [BMI] 35.0-35.9, adult; R26.2 Difficulty in walking, not elsewhere classified; Z99.89 Dependence on other enabling machines and devices; D64.9 Anemia, unspecified; Z62.810 Personal history of physical and sexual abuse in childhood; Z91.018 Allergy to other foods
CPT/HCPCS: 36415; 80053; 81003; 82962; 85027; 86593; 87389

== ENCOUNTER 2019-11-02 21:59 | Inpatient (IN) | payer OTHER ==
--- NOTE | 2019-11-02 22:27 | BHS.RME ---
Substance Use & Tx History - Last Treatment Where was last treatment: Detox CIWA Nausea/Vomitin Muscle Tremors: 2 Anxiety: 3 Agitation: 2 Paroxysmal Sweats: 2 Orientation: 0-Oriented Tacttile Disturbances: 0-None Auditory Disturbances: 0-None Visual Disturbances: 0-None Headache: 2-Mild CIWA-Ar Total Score: 13
[2019-11-02] MEDS ORDERED: ALBUTEROL SO4 HFA INHALER IH PRN (22:57)
--- NOTE | 2019-11-02 22:57 | HP ---
CIWA Score Nausea/Vomitin Muscle Tremors: 2 Anxiety: 3 Agitation: 2 Paroxysmal Sweats: 2 Orientation: 0-Oriented Tacttile Disturbances: 0-None Auditory Disturbances: 0-None Visual Disturbances: 0-None Headache: 1-Very Mild CIWA-Ar Total Score: 12 - Admission Criteria OASAS Guidelines: Admission for Medically Managed Detox: Requires at least one of the followin. CIWA greater than 12 2. Seizures within the past 24 hours 3. Delirium tremens within the past 24 hours 4. Hallucinations within the past 24 hours 5. Acute intervention needed for co occurring medical disorder 6. Acute intervention needed for co occurring psychiatric disorder 7. Severe withdrawal that cannot be handled at a lower level of care (continued vomiting, continued diarrhea, abnormal vital signs) requiring intravenous medication and/or fluids 8. Admitting History and Physical - Past Medical History ...LMP: 05/08/90 - Smoking History Smoking history: Current some day smoker Have you smoked in the past 12 months: Yes Aproximately how many cigarettes per day: 10 - Alcohol/Substance Use Hx Alcohol Use: Yes Admission ROS [facility] - HPI Allergies/Adverse Reactions: Allergies Allergy/AdvReac Type Severity Reaction Status Date / Time mushroom Allergy Severe Rash Verified 11/02/19 23:34 No Known Drug Allergies Allergy Verified 11/02/19 23:34 History of Present Illness: pt here requesting rehab from etoh use , 3 cans x 24 oz beer and 1/2 -1 pint liquor/day since 3 weks after d/c form this faciity , denie eiures or tremors, starts drinking in the evenings. PMHX : htn, asthma since childhood ( hospitalized, NI ) , olya knees OA , chronic back pain , reports uses cane. Psych : SAD , bipolar d/o , reports AH in the past , denies SA ,denies current SI / HI , reports paranoia with crack cocaine. tobacco : occasional cocaine : 50-60 $ x 2 days since return from facility Exam Limitations: Clinical Condition - Review of Systems Constitutional: No Symptoms Reported EENT: reports: Other (glasses) Respiratory: reports: See HPI, SOB with Exertion Cardiac: reports: No Symptoms Reported GI: reports: Constipated : reports: No Symptoms Reported Musculoskeletal: reports: See HPI Integumentary: reports: Dryness Neuro: reports: Headache Endocrine: reports: See HPI Psychiatric: reports: Orientated x3, Agitated, Anxious Patient History - Patient Medical History Hx Anemia: Yes (Ferrous sulfate, Vitamins) Hx Asthma: Yes Hx Chronic Obstructive Pulmonary Disease (COPD): No Hx Cancer: No Hx Cardiac Disorders: No Hx Congestive Heart Failure: No Hx Hypertension: Yes Hx Hypercholesterolemia: Yes Hx Pacemaker: No HX Cerebrovascular Accident: No Hx Seizures: No Hx Dementia: No Hx Diabetes: No Hx Gastrointestinal Disorders: No Hx Liver Disease: No Hx Genitourinary Disorders: No Hx Sexually Transmitted Disorders: No Hx Renal Disease (ESRD): No Hx Thyroid Disease: No Hx Human Immunodeficiency Virus (HIV): No (last 2017 negative) Hx Hepatitis C: No Hx Depression: Yes Hx Suicide Attempt: No Hx Bipolar Disorder: Yes Hx Schizophrenia: No - Patient Surgical History Past Surgical History: Yes Hx Neurologic Surgery: No Hx Cataract Extraction: No Hx Cardiac Surgery: No Hx Lung Surgery: No Hx Breast Surgery: No Hx Breast Biopsy: No Hx Abdominal Surgery: No Hx Appendectomy: No Hx Cholecystectomy: No Hx Genitourinary Surgery: No Hx Section: Yes (x2) Hx Orthopedic Surgery: Yes (right ankle fx at age 18) Hx Hysterectomy: No Anesthesia Reaction: No - PPD History Results: 05/12/19 - Reproductive History Last Menstrual Period: 05/08/90 - Smoking Cessation Smoking history: Current some day smoker Have you smoked in the past 12 months: Yes Aproximately how many cigarettes per day: 10 Cigars Per Day: 0 Hx Chewing Tobacco Use: No Initiated information on smoking cessation: Yes 'Breaking Loose' booklet given: 11/02/19 - Substances abused Alcohol Substance route: Oral Frequency: Daily Amount used: 4-24 OZ BEERS, 4 NIPS Age of first use: 10 Date of last use: 11/02/19 Crack Substance route: Smoking Frequency: 3-6 times per week Amount used: $100 Age of first use: 28 Date of last use: 11/01/19 Admission Physical Exam BHS - Physical General Appearance: Yes: Mild Distress, Moderate Distress, Irritable, Anxious HEENTM: Yes: EOMI, Hearing grossly Normal, Normocephalic, Normal Voice, Other ( poor dentition, many missing teeth caries and exposed gumunder broken tooth area -reports toothache upper) Respiratory: Yes: Chest Non-Tender, Lungs Clear, Normal Breath Sounds, No Respiratory Distress, No Accessory Muscle Use Neck: Yes: No masses,lesions,Nodules, Trachea in good position Cardiology: Yes: Regular Rhythm, Regular Rate, S1, S2, Tachycardia Abdominal: Yes: Normal Bowel Sounds, Non Tender, Soft, Protuberent Musculoskeletal: Yes: Joint Stiffness, Other (unsteady gait , olya knees stiffness) Extremities: Yes: Other (OA deformities olya feet) Neurological: Yes: Alert, Motor Strength 5/5, Normal Mood/Affect Integumentary: Yes: Dry, Warm - Diagnostic (1) Alcohol dependence with uncomplicated withdrawal Current Visit: Yes Status: Chronic Breathalyzer - Breathalyzer Breathalyzer: 0 Urine Drug Screen - Test Device Lot number: [id number] Expiration date: 08/07/21 - Control Is test valid?: Yes - Results Drug screen NEGATIVE: No Urine drug screen results: KULWINDER-Cocaine Inpatient Rehab Admission - Rehab Decision to Admit Inpatient rehab admission?: No
[2019-11-02] MEDS ORDERED: COLLOIDAL OATMEAL 1 BAR EACH TP PRN (22:59)
[2019-11-02] MEDS ORDERED: MENTHOL/PHENOL 1 EACH UD MM PRN (23:01)
[2019-11-02] MEDS ORDERED: MAGNESIUM HYDROX 2400MG/30ML ORAL SUSPENSION 30 ML CUP PO PRN (23:01)
[2019-11-02] MEDS ORDERED: MELATONIN 5 MG TABLETS PO PRN (23:01)
[2019-11-02] MEDS ORDERED: MAGNESIUM CITRATE 300 ML BOTTLE PO PRN (23:01)
[2019-11-02] MEDS ORDERED: hydrOXYzine PAMOATE 25 MG CAPSULE (FP) PO PRN (23:01)
[2019-11-02] MEDS ORDERED: BISMUTH SUBSALICYLATE 524 MG/30 ML UD PO PRN (23:01)
[2019-11-02] MEDS ORDERED: MAG HYDROX/AL HYDROX/SIMETH 30 ML UNIT-DOSE CUP PO PRN (23:01)
[2019-11-02] MEDS ORDERED: ACETAMINOPHEN 325 MG TABLET (FP) PO PRN ×2 (23:01)
[2019-11-02] MEDS ORDERED: IBUPROFEN 400 MG TABLET (FP) PO PRN (23:01)
[2019-11-02] MEDS ORDERED: diazePAM 5 MG TABLET PO PRN (23:03)
[2019-11-02 23:35] VITALS: BMI 34.0
[2019-11-03] MEDS: diazePAM 5 MG TABLET PO SCH ×4 (01:01→22:04)
[2019-11-03] MEDS: diphenhydrAMINE HCL 25 MG CAPSULE (FP) PO PRN (01:02)
[2019-11-03] MEDS: metFORMIN HCL 500 MG TABLET (FP) PO SCH ×2 (08:09→17:35)
[2019-11-03] MEDS: AMOXICILLIN 250 MG CAPSULE PO SCH ×3 (08:23→22:04)
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
[2019-11-03] MEDS ORDERED: [UNRECOGNIZED DRUG - OTHER] TP SCH (10:00)
[2019-11-03] MEDS ORDERED: PATIENT'S OWN MEDICATION (NON-FORMULARY) (Ascorbate Calcium [Vitamin C] 500 MG) PO SCH (10:00)
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
[2019-11-03 11:03] LABS: HEMATOCRIT 37.6 % (32.4-45.2); HEMOGLOBIN 12.4 GM/dL (10.7-15.3); MCH 31.7 pg (25.7-33.7); MCHC 33.1 g/dl (32.0-36.0); MEAN CELL VOLUME 95.8 fl (80-96); MEAN PLT VOLUME 8.1 fl (7.5-11.1); PLATELET COUNT 298 K/MM3 (134-434); RBC 3.93 M/mm3 (3.60-5.2); RDW 15.9 % (11.6-15.6); WHITE BLOOD COUNT 4.2 K/mm3 (4.0-10.0)
[2019-11-03 11:08] LABS: BILIRUBIN,TOTAL 0.2 mg/dL (0.2-1); BLOOD UREA NITROGEN 20.8 mg/dL (7-18); CALCIUM 8.5 mg/dL (8.5-10.1); CREATININE 0.9 mg/dL (0.55-1.3); TOT PROT 6.4 g/dl (6.4-8.2)
[2019-11-03] MEDS: BUDESONIDE/FORMETEROL FUMARATE 160/4.5 mcg INHALER IH SCH ×2 (12:26→22:03)
[2019-11-03] MEDS: PRENATAL VITAMINS W/ FOLIC ACID TABLET (FP) PO SCH (12:27)
[2019-11-03] MEDS: METHYL SALICYLATE/MENTHOL OINT 30 GM TUBE TP SCH ×2 (12:27→22:08)
[2019-11-03] MEDS: ASPIRIN 81 MG CHEWABLE TABLETS PO SCH (12:27)
[2019-11-03] MEDS: MINERAL OIL/PETROLAT/WATER TOPICAL CREAM 113 GM JAR TP SCH (12:27)
[2019-11-03] MEDS: amLODIPine BESYLATE 5 MG TABLET (FP) PO SCH (12:27)
[2019-11-03] MEDS: ASCORBIC ACID 500 MG TABLET (FP) PO SCH (12:27)
--- NOTE | 2019-11-03 13:04 | PN ---
S Progress Note Note: patient states that she has diabetes and feeling dizzy no one order finger stick for her discontinue bgm bid ac begin bgm achs
--- NOTE | 2019-11-03 13:10 | PN ---
BHS Progress Note Note: received nurse inform that the patient is taking hctz 12.5 mg at home hctz needs order to continue chart review that bp within acceptable range hold hctz at this time
--- NOTE | 2019-11-03 13:11 | PN ---
S Progress Note Note: received nurse called that the patient is taking protonix at home and no order for protonix chart reviewed that last dose protonix 03/2019 hold protonix at this time
[2019-11-03] MEDS: PANTOPRAZOLE 40 MG TABLET PO SCH (19:03)
[2019-11-03] MEDS: HYDROCHLOROTHIAZIDE 12.5 MG CAPSULE (FP) PO SCH (19:03)
[2019-11-03] MEDS: THIAMINE HCL 100 MG TABLET (FP) PO SCH (22:04)
[2019-11-03] MEDS: MONTELUKAST NA 10 MG TABLET PO SCH (22:05)
[2019-11-03] MEDS: ATORVASTATIN CA 10 MG TABLET (FP) PO SCH (22:05)
[2019-11-03] MEDS: QUEtiapine FUMARATE 50 MG TABLET PO SCH (22:08)
[2019-11-03] MEDS: FLUTICASONE PROP 0.05% 16 GM NASAL SPRAY NS SCH (22:29)
[2019-11-03] MEDS: METHOCARBAMOL 500 MG TABLET PO PRN (23:36)
[2019-11-04] MEDS: diazePAM 5 MG TABLET PO SCH ×2 (06:57→17:20)
[2019-11-04] MEDS: metFORMIN HCL 500 MG TABLET (FP) PO SCH ×2 (07:57→16:44)
[2019-11-04] MEDS ORDERED: SERTRALINE HCL 50 MG TABLET (FP) PO SCH (10:00)
[2019-11-04] MEDS: PANTOPRAZOLE 40 MG TABLET PO SCH (10:27)
[2019-11-04] MEDS: HYDROCHLOROTHIAZIDE 12.5 MG CAPSULE (FP) PO SCH (10:28)
[2019-11-04] MEDS: PRENATAL VITAMINS W/ FOLIC ACID TABLET (FP) PO SCH (10:28)
[2019-11-04] MEDS: ASPIRIN 81 MG CHEWABLE TABLETS PO SCH (10:28)
[2019-11-04] MEDS: amLODIPine BESYLATE 5 MG TABLET (FP) PO SCH (10:28)
[2019-11-04] MEDS: BUDESONIDE/FORMETEROL FUMARATE 160/4.5 mcg INHALER IH SCH ×2 (10:28→22:04)
[2019-11-04] MEDS: ASCORBIC ACID 500 MG TABLET (FP) PO SCH (10:28)
[2019-11-04] MEDS: AMOXICILLIN 250 MG CAPSULE PO SCH ×2 (10:28→22:06)
[2019-11-04] MEDS: MINERAL OIL/PETROLAT/WATER TOPICAL CREAM 113 GM JAR TP SCH (10:29)
[2019-11-04] MEDS: METHYL SALICYLATE/MENTHOL OINT 30 GM TUBE TP SCH ×2 (10:29→22:06)
--- NOTE | 2019-11-04 10:41 | PN ---
[facility] CIWA - CIWA Score Nausea/Vomitin-No Nausea/No Vomiting Muscle Tremors: 1-None Visible, but [place] Anxiety: 1-Mildly Anxious Agitation: 0-Normal Activity Paroxysmal Sweats: 1-Minimal Palms Moist Orientation: 0-Oriented Tacttile Disturbances: 0-None Auditory Disturbances: 0-None Visual Disturbances: 2-Mild Sensitivity Headache: 0-None Present CIWA-Ar Total Score: 5 BHS Progress Note (SOAP) Subjective: 59 years old female admitted on 11/02/19 for alcohol withdrawal sx management treating with valium detox regiment feeling ok today ambulating on hallway social with peers in day room Objective: 11/04/19 10:42 Vital Signs Temperature 96.6 F L 11/04/19 08:44 Pulse Rate 93 H 11/04/19 08:44 Respiratory Rate 18 11/04/19 08:44 Blood Pressure 119/76 11/04/19 08:44 O2 Sat by Pulse Oximetry (%) Laboratory Last Values WBC 4.2 K/mm3 (4.0-10.0) 11/03/19 08:00 RBC 3.93 M/mm3 (3.60-5.2) 11/03/19 08:00 Hgb 12.4 GM/dL (10.7-15.3) 11/03/19 08:00 Hct 37.6 % (32.4-45.2) 11/03/19 08:00 MCV 95.8 fl (80-96) 11/03/19 08:00 MCH 31.7 pg (25.7-33.7) 11/03/19 08:00 MCHC 33.1 g/dl (32.0-36.0) 11/03/19 08:00 RDW 15.9 % (11.6-15.6) H 11/03/19 08:00 Plt Count 298 K/MM3 (134-434) 11/03/19 08:00 MPV 8.1 fl (7.5-11.1) 11/03/19 08:00 Sodium 142 mmol/L (136-145) 11/03/19 08:00 Potassium 4.0 mmol/L (3.5-5.1) 11/03/19 08:00 Chloride 111 mmol/L (98-107) H 11/03/19 08:00 Carbon Dioxide 26 mmol/L (21-32) 11/03/19 08:00 Anion Gap 5 MMOL/L (8-16) L 11/03/19 08:00 BUN 20.8 mg/dL (7-18) H 11/03/19 08:00 Creatinine 0.9 mg/dL (0.55-1.3) 11/03/19 08:00 Est GFR (CKD-EPI)AfAm 81.11 11/03/19 08:00 Est GFR (CKD-EPI)NonAf 69.99 11/03/19 08:00 POC Glucometer 125 UNITS (80-120) 11/03/19 21:29 Random Glucose 86 mg/dL (74-106) 11/03/19 08:00 Calcium 8.5 mg/dL (8.5-10.1) 11/03/19 08:00 Total Bilirubin 0.2 mg/dL (0.2-1) 11/03/19 08:00 AST 15 U/L (15-37) 11/03/19 08:00 ALT 23 U/L (13-61) 11/03/19 08:00 Alkaline Phosphatase 88 U/L (45-117) 11/03/19 08:00 Total Protein 6.4 g/dl (6.4-8.2) 11/03/19 08:00 Albumin 3.0 g/dl (3.4-5.0) L 11/03/19 08:00 RPR Titer Nonreactive (NONREACTIVE) 11/03/19 08:00 lab noted hctz and protonix were resumed Assessment: 11/04/19 10:43 alcohol withdrawal Plan: valium regiment
[2019-11-04 20:45] VITALS: TEMP 98.7
[2019-11-04] MEDS: ATORVASTATIN CA 10 MG TABLET (FP) PO SCH (22:05)
[2019-11-04] MEDS: QUEtiapine FUMARATE 50 MG TABLET PO SCH (22:05)
[2019-11-04] MEDS: THIAMINE HCL 100 MG TABLET (FP) PO SCH (22:05)
[2019-11-04] MEDS: MONTELUKAST NA 10 MG TABLET PO SCH (22:06)
[2019-11-04] MEDS: FLUTICASONE PROP 0.05% 16 GM NASAL SPRAY NS SCH (22:06)
[2019-11-04] MEDS: diphenhydrAMINE HCL 25 MG CAPSULE (FP) PO PRN (22:08)
[2019-11-04] MEDS: METHOCARBAMOL 500 MG TABLET PO PRN (22:08)
[2019-11-05] MEDS ORDERED: diazePAM 5 MG TABLET PO ONE (06:00)
[2019-11-05 06:18] VITALS: BP 129/84; PULSE 90
[2019-11-05] MEDS: metFORMIN HCL 500 MG TABLET (FP) PO SCH (07:05)
--- NOTE | 2019-11-05 08:50 | PN ---
[facility] CIWA - CIWA Score Nausea/Vomitin-No Nausea/No Vomiting Muscle Tremors: None Anxiety: 1-Mildly Anxious Agitation: 0-Normal Activity Paroxysmal Sweats: No Perspiration Orientation: 0-Oriented Tacttile Disturbances: 0-None Auditory Disturbances: 0-None Visual Disturbances: 0-None Headache: 0-None Present CIWA-Ar Total Score: 1 S Progress Note (SOAP) Subjective: alert,no complaint Objective: 11/05/19 08:48 Vital Signs Temperature 98.7 F 11/04/19 20:14 Pulse Rate 90 11/05/19 06:18 Respiratory Rate 18 11/05/19 06:18 Blood Pressure 129/84 11/05/19 06:18 O2 Sat by Pulse Oximetry (%) Assessment: 11/05/19 08:49 detox completed,no withdrawal symptom Plan: stable for dischaege today,follow up with after care program as arrangement and medical provider for medical problem
--- NOTE | 2019-11-05 08:57 | DS ---
[facility] Detox Discharge Summary Admission Date: 11/02/19 Discharge Date: 11/05/19 - History Present History: Alcohol Dependence, Cocaine Dependence Additional Comments: alert,oriented x 3 ambulation on the unit heart normal heart sound,s1s2 lung clear,no wheezing no abdominal pain stable for discharge follow up with medical provider for medical follow up time of discharge spending 30 mins advise to call 911 if not feeling well Pertinent Past History: asthma hypertension diabetes mellitus tooth abscess hypercholesterolemia - Physical Exam Results Vital Signs: Vital Signs Temperature 98.7 F 11/04/19 20:14 Pulse Rate 90 11/05/19 06:18 Respiratory Rate 18 11/05/19 06:18 Blood Pressure 129/84 11/05/19 06:18 O2 Sat by Pulse Oximetry (%) Pertinent Admission Physical Exam Findings: withdrawal sisns and symptom Laboratory Last Values WBC 4.2 K/mm3 (4.0-10.0) 11/03/19 08:00 RBC 3.93 M/mm3 (3.60-5.2) 11/03/19 08:00 Hgb 12.4 GM/dL (10.7-15.3) 11/03/19 08:00 Hct 37.6 % (32.4-45.2) 11/03/19 08:00 MCV 95.8 fl (80-96) 11/03/19 08:00 MCH 31.7 pg (25.7-33.7) 11/03/19 08:00 MCHC 33.1 g/dl (32.0-36.0) 11/03/19 08:00 RDW 15.9 % (11.6-15.6) H 11/03/19 08:00 Plt Count 298 K/MM3 (134-434) 11/03/19 08:00 MPV 8.1 fl (7.5-11.1) 11/03/19 08:00 Sodium 142 mmol/L (136-145) 11/03/19 08:00 Potassium 4.0 mmol/L (3.5-5.1) 11/03/19 08:00 Chloride 111 mmol/L (98-107) H 11/03/19 08:00 Carbon Dioxide 26 mmol/L (21-32) 11/03/19 08:00 Anion Gap 5 MMOL/L (8-16) L 11/03/19 08:00 BUN 20.8 mg/dL (7-18) H 11/03/19 08:00 Creatinine 0.9 mg/dL (0.55-1.3) 11/03/19 08:00 Est GFR (CKD-EPI)AfAm 81.11 11/03/19 08:00 Est GFR (CKD-EPI)NonAf 69.99 11/03/19 08:00 POC Glucometer 139 UNITS (80-120) 11/04/19 20:44 Random Glucose 86 mg/dL (74-106) 11/03/19 08:00 Calcium 8.5 mg/dL (8.5-10.1) 11/03/19 08:00 Total Bilirubin 0.2 mg/dL (0.2-1) 11/03/19 08:00 AST 15 U/L (15-37) 11/03/19 08:00 ALT 23 U/L (13-61) 11/03/19 08:00 Alkaline Phosphatase 88 U/L (45-117) 11/03/19 08:00 Total Protein 6.4 g/dl (6.4-8.2) 11/03/19 08:00 Albumin 3.0 g/dl (3.4-5.0) L 11/03/19 08:00 RPR Titer Nonreactive (NONREACTIVE) 11/03/19 08:00 Vital Signs Temperature 98.7 F 11/04/19 20:14 Pulse Rate 90 11/05/19 06:18 Respiratory Rate 18 11/05/19 06:18 Blood Pressure 129/84 11/05/19 06:18 O2 Sat by Pulse Oximetry (%) - Treatment Hospital Course: Detox Protocol Followed, Detoxed Safely, Responded well, Discharged Condition Good Patient has Accepted a Rehab Referral to: declined - Medication Discharge Medications: Ambulatory Orders Folic Acid 1 mg PO DAILY 02/12/19 Multivitamin [Multiple Vitamins] 1 each PO DAILY 02/12/19 Thiamine Mononitrate [Vitamin B-1] 100 mg PO DAILY 02/12/19 Ibuprofen [Motrin -] 600 mg PO TID PRN 03/19/19 Vitamin B Complex [B Complex] 1 each PO DAILY 08/21/19 Ascorbate Calcium [Vitamin C] 500 mg PO DAILY #14 tablet 08/30/19 Montelukast Na [Singulair -] 10 mg PO HS #30 tablet 08/30/19 Pantoprazole Sodium [Protonix -] 40 mg PO DAILY #14 tablet.ec 08/30/19 Quetiapine Fumarate [Seroquel -] 50 mg PO HS #30 tablet 08/30/19 Sertraline HCl [Zoloft -] 50 mg PO HS #30 tablet 08/30/19 Amoxicillin - [Amoxicillin 500mg Capsule -] 500 mg PO TID 11/02/19 Albuterol Sulfate Inhaler - [Ventolin HFA Inhaler -] 2 puff IH Q4H PRN #1 inhaler 11/05/19 Amlodipine Besylate [Norvasc -] 5 mg PO DAILY #14 tablet 11/05/19 Amoxicillin - [Amoxicillin 250mg Capsule -] 250 mg PO BID #10 capsule 11/05/19 Aspirin [ASA -] 81 mg PO DAILY #30 tab.chew 11/05/19 Atorvastatin Ca [Lipitor] 10 mg PO HS #30 tablet 11/05/19 Budesonide/Formeterol Fumarate [SYMBICORT 160/4.5mcg -] 2 puff IH BID #1 inhaler 11/05/19 Hydrochlorothiazide [Hctz -] 12.5 mg PO DAILY #30 cap 11/05/19 Metformin HCl [Glucophage] 500 mg PO BID #30 tablet 11/05/19 - Diagnosis (1) Alcohol dependence with uncomplicated withdrawal Current Visit: Yes Status: Chronic (2) Cocaine dependence Current Visit: Yes Status: Chronic Qualifiers: Substance use status: uncomplicated Qualified Code(s): F14.20 - Cocaine dependence, uncomplicated (3) Nicotine dependence Current Visit: Yes Status: Chronic Qualifiers: Nicotine product type: cigarettes Substance use status: uncomplicated Qualified Code(s): F17.210 - Nicotine dependence, cigarettes, uncomplicated (4) Schizoaffective disorder Current Visit: Yes Status: Chronic Qualifiers: (5) Abscess of upper gum Current Visit: No Status: Acute (6) Asthma Current Visit: No Status: Chronic Qualifiers: Asthma severity: mild Asthma persistence: intermittent Asthma complication type: uncomplicated Qualified Code(s): J45.20 - Mild intermittent asthma, uncomplicated - AMA Did Patient Leave Against Medical Advice: No
== END 2019-11-05 08:38 | disposition home or self-care (01) | DRG 774 ==
LOC: YASAS 21:59 → Y3N 23:56
PROVIDERS: ADMIT Allergy & Immunology; ATTEND Allergy & Immunology
PROC: HZ2ZZZZ Detoxification Services for Substance Abuse Treatment (ICD-10-PCS; principal; 2019-11-02)
DX: F10.230 Alcohol dependence with withdrawal, uncomplicated (principal); F14.20 Cocaine dependence, uncomplicated; F17.210 Nicotine dependence, cigarettes, uncomplicated; F19.24 Other psychoactive substance dependence with psychoactive substance-induced mood disorder; F25.9 Schizoaffective disorder, unspecified; F31.9 Bipolar disorder, unspecified; F60.9 Personality disorder, unspecified; D64.9 Anemia, unspecified; G47.00 Insomnia, unspecified; I10 Essential (primary) hypertension; J45.20 Mild intermittent asthma, uncomplicated; E11.9 Type 2 diabetes mellitus without complications; Z79.84 Long term (current) use of oral hypoglycemic drugs; E78.00 Pure hypercholesterolemia, unspecified; K04.7 Periapical abscess without sinus; E66.9 Obesity, unspecified; Z68.34 Body mass index [BMI] 34.0-34.9, adult; M12.9 Arthropathy, unspecified; M25.569 Pain in unspecified knee; Z99.89 Dependence on other enabling machines and devices; Z91.018 Allergy to other foods
CPT/HCPCS: 36415; 80053; 82962; 85027; 86593

== ENCOUNTER 2020-03-14 10:19 | Inpatient (IN) | payer OTHER ==
--- NOTE | 2020-03-14 10:32 | BHS.RME ---
Physical/Psych/Mental Status - Behavior General Behavior: Increased activity (restlessness, agitation) Eye Contact: Normal - Cooperativeness Cooperativeness: Cooperative - Thinking Thought Processes: Tight, Logical, Goal Directed - Physical Health Problems Is patient presently having any pain?: Yes (LEFT KNEE PAIN) Does patient presently have any injuries (include location): No Does patient currently have a fever: No Is patient : No Treatment Recommendation - Level of Care Level of Care: Acute Medical (LEFT ANKLE PAIN FOR ONE MONTH. RULE OUT FRACTURE OR GOUT OF OTHER SOFT TISSUE INJURY)
--- NOTE | 2020-03-14 14:49 | HP ---
CIWA Score Nausea/Vomitin-No Nausea/No Vomiting Muscle Tremors: None Anxiety: 1-Mildly Anxious Agitation: 0-Normal Activity Paroxysmal Sweats: No Perspiration Orientation: 0-Oriented Tacttile Disturbances: 1-Very Mild Itch/Numbness Auditory Disturbances: 0-None Visual Disturbances: 0-None Headache: 0-None Present CIWA-Ar Total Score: 2 - Admission Criteria OASAS Guidelines: Admission for Medically Managed Detox: Requires at least one of the followin. CIWA greater than 12 2. Seizures within the past 24 hours 3. Delirium tremens within the past 24 hours 4. Hallucinations within the past 24 hours 5. Acute intervention needed for co occurring medical disorder 6. Acute intervention needed for co occurring psychiatric disorder 7. Severe withdrawal that cannot be handled at a lower level of care (continued vomiting, continued diarrhea, abnormal vital signs) requiring intravenous medication and/or fluids 8. Patient presents the following: Acute intervention needed for co-occurring med or psych disorder Admission Criteria Met: Admission criteria met Admitting History and Physical - Admission History of Present Illness: Patient returns after being cleared medically for Left ankle sprain. No fractures noted. CIWA 9 Breathalyzer 0.000 Alcohol: 1 pint vodka daily, started drinking at the age of 10, last used 03/13/20 denies blackouts and seizures, but endorses the need for an eye stock hanger daily. Crack: $100 daily, smoking since the age of 28 and last used 03/13/20 Nicotine: 10 ciggs daily, started at age 10 Patient is a 59 y/o F with a significant past medical history of DM, HLD, HTN, and asthma who presents to [facility] for alcohol detox. History Source: Patient Limitations to Obtaining History: No Limitations - Past Medical History Cardiovascular: Yes: HTN, Other (HLD) Pulmonary: Yes: Asthma ...LMP: 05/08/90 Psych: Yes: Anxiety, Depression Endocrine: Yes: Diabetes Mellitus - Past Surgical History Additional Past Surgical History: Right Ankle Surgery - Smoking History Smoking history: Current some day smoker Have you smoked in the past 12 months: Yes Aproximately how many cigarettes per day: 10 - Alcohol/Substance Use Hx Alcohol Use: Yes (1 pint vodka daily ) - Social History Usual Living Arrangement: Yes: Other (Homeless) Admission [facility] Allergies/Adverse Reactions: Allergies Allergy/AdvReac Type Severity Reaction Status Date / Time mushroom Allergy Severe Rash Verified 03/14/20 11:31 No Known Drug Allergies Allergy Verified 03/14/20 11:31 Exam Limitations: No Limitations - Review of Systems GI: reports: Diarrhea Musculoskeletal: reports: Joint Swelling (Left ankle swelling 2/2 injury) Integumentary: reports: Bruising (Left ankl) Patient History - Patient Medical History Hx Anemia: Yes (Ferrous sulfate, Vitamins) Hx Asthma: Yes Hx Chronic Obstructive Pulmonary Disease (COPD): No Hx Cancer: No Hx Cardiac Disorders: No Hx Congestive Heart Failure: No Hx Hypertension: Yes Hx Hypercholesterolemia: Yes Hx Pacemaker: No HX Cerebrovascular Accident: No Hx Seizures: No Hx Dementia: No Hx Diabetes: No Hx Gastrointestinal Disorders: No Hx Liver Disease: No Hx Genitourinary Disorders: No Hx Sexually Transmitted Disorders: No Hx Renal Disease (ESRD): No Hx Thyroid Disease: No Hx Human Immunodeficiency Virus (HIV): No (last 2016 negative) Hx Hepatitis C: No Hx Depression: Yes Hx Suicide Attempt: No Hx Bipolar Disorder: Yes Hx Schizophrenia: No - Patient Surgical History Past Surgical History: Yes Hx Neurologic Surgery: No Hx Cataract Extraction: No Hx Cardiac Surgery: No Hx Lung Surgery: No Hx Breast Surgery: No Hx Breast Biopsy: No Hx Abdominal Surgery: No Hx Appendectomy: No Hx Cholecystectomy: No Hx Genitourinary Surgery: No Hx Section: Yes (x2) Hx Orthopedic Surgery: Yes (right ankle fx at age 18) Hx Hysterectomy: No Anesthesia Reaction: No - PPD History Results: 05/12/19 - Reproductive History Last Menstrual Period: 05/08/90 - Smoking Cessation Smoking history: Current some day smoker Have you smoked in the past 12 months: Yes Aproximately how many cigarettes per day: 10 Cigars Per Day: 0 Hx Chewing Tobacco Use: No Initiated information on smoking cessation: Yes 'Breaking Loose' booklet given: 03/13/20 Admission Physical Exam [facility] - Physical General Appearance: Yes: No Apparent Distress. No: Irritable, Sweating, Anxious HEENTM: Yes: EOMI, Hearing grossly Normal Respiratory: Yes: Rhonchi Cardiology: Yes: S1, S2, Tachycardia. No: Murmur Abdominal: Yes: Non Tender, Flat, Soft, Other (obese) Musculoskeletal: Yes: Joint swelling (Left nkle swollen) Extremities: Yes: Other (left ankle swollen) Neurological: Yes: carriage rider II-XII NML intact, Fully Oriented, Alert, Motor Strength 5/5, Normal Mood/Affect Integumentary: Yes: Normal Color, Dry, Warm Breathalyzer - Breathalyzer Breathalyzer: 0 Urine Drug Screen - Test Device Lot number: [id number] Expiration date: 08/07/21 - Control Is test valid?: Yes - Results Drug screen NEGATIVE: No Urine drug screen results: [facility]-Cocaine Inpatient Rehab Admission - Rehab Decision to Admit Inpatient rehab admission?: No
[2020-03-14] MEDS ORDERED: MENTHOL/PHENOL 1 EACH UD MM PRN (15:25)
[2020-03-14] MEDS ORDERED: BISMUTH SUBSALICYLATE 524 MG/30 ML UD PO PRN (15:25)
[2020-03-14] MEDS ORDERED: NICOTINE POLACRILEX 2 MG GUM BUC PRN (15:25)
[2020-03-14] MEDS ORDERED: IBUPROFEN 400 MG TABLET (FP) PO PRN (15:25)
[2020-03-14] MEDS ORDERED: MAGNESIUM HYDROX 2400MG/30ML ORAL SUSPENSION 30 ML CUP PO PRN (15:25)
[2020-03-14] MEDS ORDERED: ACETAMINOPHEN 325 MG TABLET (FP) PO PRN (15:25)
[2020-03-14] MEDS ORDERED: MAG HYDROX/AL HYDROX/SIMETH 30 ML UNIT-DOSE CUP PO PRN (15:25)
[2020-03-14] MEDS ORDERED: MAGNESIUM CITRATE 300 ML BOTTLE PO PRN (15:25)
[2020-03-14] MEDS ORDERED: chlordiazePOXIDE HCL 25 MG CAPSULE PO PRN (15:28)
[2020-03-14] MEDS ORDERED: ALBUTEROL SO4 HFA INHALER IH PRN (15:39)
[2020-03-14] MEDS ORDERED: ONDANSETRON *ODT* 4 MG TABLET SL ONE (17:00)
[2020-03-14] MEDS ORDERED: chlordiazePOXIDE HCL 25 MG CAPSULE PO SCH (17:00)
[2020-03-14 17:02] VITALS: BMI 33.9
[2020-03-14] MEDS ORDERED: diazePAM 5 MG TABLET PO PRN (18:21)
[2020-03-14] MEDS ORDERED: COLLOIDAL OATMEAL 1 BAR EACH TP PRN (18:21)
[2020-03-14] MEDS ORDERED: TUBERCULIN PPD 5 TU/0.1ML VIAL ID ONE (18:21)
[2020-03-14] MEDS ORDERED: diazePAM 5 MG TABLET PO ONE (18:21)
--- NOTE | 2020-03-14 18:23 | PN ---
BHS Progress Note Note: PT REQUESTING AVEENO SOAP AND GEOVANNA BANDAGE FOR THE LEFT ANKLE SPRAIN . PT REPORTS SHE IS TOO SEDATED WITH LIBRIUM . p : REGIMEN CHANGED . AVEENO AND GEOVANNA BANDAGE ORDERED.
[2020-03-14] MEDS: hydrOXYzine PAMOATE 25 MG CAPSULE (FP) PO SCH ×2 (18:36→23:19)
[2020-03-14] MEDS: NICOTINE 7 MG/24 HOURS TOPICAL PATCH TD SCH (18:39)
[2020-03-14] MEDS: ACETAMINOPHEN 325 MG TABLET (FP) PO PRN (18:40)
[2020-03-14] MEDS: PRENATAL VITAMINS W/ FOLIC ACID TABLET (FP) PO SCH (18:43)
[2020-03-14] MEDS: METHYL SALICYLATE/MENTHOL OINT 30 GM TUBE TP SCH ×2 (19:21→23:19)
[2020-03-14] MEDS ORDERED: QUEtiapine FUMARATE 50 MG TABLET PO SCH (22:00)
[2020-03-14] MEDS: MELATONIN 5 MG TABLETS PO SCH (23:19)
[2020-03-14] MEDS: BUDESONIDE/FORMETEROL FUMARATE 160/4.5 mcg INHALER IH SCH (23:19)
[2020-03-14] MEDS: MONTELUKAST NA 10 MG TABLET PO SCH (23:19)
[2020-03-14] MEDS: diazePAM 5 MG TABLET PO SCH (23:19)
[2020-03-14] MEDS: THIAMINE HCL 100 MG TABLET (FP) PO SCH (23:19)
[2020-03-15] MEDS: hydrOXYzine PAMOATE 25 MG CAPSULE (FP) PO SCH ×5 (06:00→21:51)
[2020-03-15] MEDS: diazePAM 5 MG TABLET PO SCH ×3 (06:00→21:50)
--- NOTE | 2020-03-15 09:56 | PN ---
S CIWA - CIWA Score Nausea/Vomitin-No Nausea/No Vomiting Muscle Tremors: 2 Anxiety: 3 Agitation: 3 Paroxysmal Sweats: No Perspiration Orientation: 0-Oriented Tacttile Disturbances: 0-None Auditory Disturbances: 0-None Visual Disturbances: 0-None Headache: 0-None Present CIWA-Ar Total Score: 8 BHS Progress Note (SOAP) Subjective: Pt is a 59 y/o female admitted to detox for alcohol withdrawal sx. Pt is on librium regimen. c/o anxiety sweats Objective: 03/15/20 10:00 Vital Signs - 8 hr 03/15/20 05:40 Temperature 97.7 F Pulse Rate 69 Respiratory 18 Rate Blood Pressure 128/70 O2 Sat by Pulse 96 Oximetry (%) Lab results pending alert o x 3 nad pt was seen in bed and communicating coherently. Assessment: 03/15/20 10:01 withdrawal sx Plan: cont detox increase po fluids maintain safety
--- NOTE | 2020-03-15 10:45 | EKG ---
Test Reason : Blood Pressure : / mmHG Vent. Rate : 082 BPM Atrial Rate : 082 BPM P-R Int : 136 ms QRS Dur : 088 ms QT Int : 410 ms P-R-T Axes : 066 054 052 degrees QTc Int : 479 ms SINUS RHYTHM WITH MARKED SINUS ARRHYTHMIA POSSIBLE LEFT ATRIAL ENLARGEMENT BORDERLINE ECG WHEN COMPARED WITH ECG OF 05-AUG-2018 21:40, NONSPECIFIC T WAVE ABNORMALITY NOW EVIDENT IN ANTERIOR LEADS Confirmed by MD Zaid, Jeremiah ([id number]) on 03/15/2020 10:45:08 AM Referred By: Confirmed By:Jeremiah Mar MD
[2020-03-15] MEDS: METHYL SALICYLATE/MENTHOL OINT 30 GM TUBE TP SCH ×2 (10:56→21:52)
[2020-03-15] MEDS: NICOTINE 7 MG/24 HOURS TOPICAL PATCH TD SCH (10:56)
[2020-03-15] MEDS: BUDESONIDE/FORMETEROL FUMARATE 160/4.5 mcg INHALER IH SCH ×2 (10:57→21:51)
[2020-03-15] MEDS: PRENATAL VITAMINS W/ FOLIC ACID TABLET (FP) PO SCH (10:57)
--- NOTE | 2020-03-15 10:57 | PN ---
Teaching Attending Note Name of Resident: Александр Briggs ATTENDING PHYSICIAN STATEMENT I saw and evaluated the patient. I reviewed the resident's note and discussed the case with the resident. I agree with the resident's findings and plan as documented. SUBJECTIVE: OBJECTIVE: ASSESSMENT AND PLAN:
[2020-03-15] MEDS: ACETAMINOPHEN 325 MG TABLET (FP) PO PRN (10:58)
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
[2020-03-15 11:16] LABS: HEMATOCRIT 41.3 % (32.4-45.2); HEMOGLOBIN 13.2 GM/dL (10.7-15.3); MCH 31.8 pg (25.7-33.7); MEAN CELL VOLUME 99.5 fl (80-96); MEAN PLT VOLUME 8.1 fl (7.5-11.1); PLATELET COUNT 256 K/MM3 (134-434); RBC 4.15 M/mm3 (3.60-5.2); RDW 14.8 % (11.6-15.6); WHITE BLOOD COUNT 5.1 K/mm3 (4.0-10.0)
[2020-03-15 11:24] LABS: ALBUMIN 3.1 g/dl (3.4-5.0); BILIRUBIN,TOTAL 0.4 mg/dL (0.2-1); BLOOD UREA NITROGEN 10.2 mg/dL (7-18); CALCIUM 8.8 mg/dL (8.5-10.1); CREATININE 0.9 mg/dL (0.55-1.3); POTASSIUM 3.2 mmol/L (3.5-5.1); TOT PROT 6.2 g/dl (6.4-8.2)
[2020-03-15] MEDS: THIAMINE HCL 100 MG TABLET (FP) PO SCH (21:50)
[2020-03-15] MEDS: MELATONIN 5 MG TABLETS PO SCH (21:50)
[2020-03-15] MEDS: MONTELUKAST NA 10 MG TABLET PO SCH (21:50)
[2020-03-15] MEDS: QUEtiapine FUMARATE 50 MG TABLET PO SCH (21:50)
[2020-03-16] MEDS ORDERED: chlordiazePOXIDE HCL 25 MG CAPSULE PO SCH (05:00)
[2020-03-16] MEDS: diazePAM 5 MG TABLET PO SCH ×2 (06:56→17:42)
[2020-03-16] MEDS: hydrOXYzine PAMOATE 25 MG CAPSULE (FP) PO SCH ×5 (06:56→22:27)
[2020-03-16] MEDS: ACETAMINOPHEN 325 MG TABLET (FP) PO PRN (07:14)
--- NOTE | 2020-03-16 10:02 | PN ---
[facility] CIWA - CIWA Score Nausea/Vomitin-No Nausea/No Vomiting Muscle Tremors: 2 Anxiety: 4-Mod. Anxious/Guarded Agitation: 0-Normal Activity Paroxysmal Sweats: No Perspiration Orientation: 0-Oriented Tacttile Disturbances: 0-None Auditory Disturbances: 0-None Visual Disturbances: 0-None Headache: 0-None Present CIWA-Ar Total Score: 6 [facility] Progress Note (SOAP) Subjective: c/o Lower Back pain anxiety fatigue Objective: 03/16/20 10:00 Vital Signs - 24 hr 03/15/20 03/15/20 03/15/20 13:52 16:45 20:12 Temperature 97.3 F L 97.5 F L 97.1 F L Pulse Rate 89 86 97 H Respiratory 18 16 18 Rate Blood Pressure 103/79 131/70 133/79 O2 Sat by Pulse 95 96 Oximetry (%) 03/16/20 03/16/20 05:34 09:54 Temperature 98 F Pulse Rate 80 79 Respiratory 18 18 Rate Blood Pressure 113/70 94/57 L O2 Sat by Pulse 96 95 Oximetry (%) Laboratory Tests 03/15/20 03/15/20 03/15/20 07:10 07:10 07:10 WBC 5.1 RBC 4.15 Hgb 13.2 Hct 41.3 MCV 99.5 H MCH 31.8 MCHC 32.0 RDW 14.8 Plt Count 256 MPV 8.1 Sodium 146 H Potassium 3.2 L Chloride 111 H Carbon Dioxide 25 Anion Gap 10 BUN 10.2 Creatinine 0.9 Est GFR (CKD-EPI)AfAm 81.11 Est GFR (CKD-EPI)NonAf 69.99 Random Glucose 121 H Calcium 8.8 Total Bilirubin 0.4 AST 17 ALT 24 Alkaline Phosphatase 89 Total Protein 6.2 L Albumin 3.1 L Syphilis Serology Non-reactive covid-19 result pending Alert o x 3 nad laying in bed at rounds time but communicating coherently. Assessment: 03/16/20 10:01 withdrawal sx Plan: cont detox increase po fluids maintain safety Lidocaine patch 5 mg TP daily apply as directed
[2020-03-16] MEDS: LIDOCAINE 5% TOPICAL PATCH TP SCH (10:49)
[2020-03-16] MEDS: NICOTINE 7 MG/24 HOURS TOPICAL PATCH TD SCH (10:49)
[2020-03-16] MEDS: BUDESONIDE/FORMETEROL FUMARATE 160/4.5 mcg INHALER IH SCH ×2 (10:49→23:01)
[2020-03-16] MEDS: PRENATAL VITAMINS W/ FOLIC ACID TABLET (FP) PO SCH (10:50)
[2020-03-16] MEDS: NAPROXEN 375 MG TABLET PO PRN ×2 (10:55→23:04)
[2020-03-16] MEDS: METHYL SALICYLATE/MENTHOL OINT 30 GM TUBE TP SCH ×2 (10:56→23:03)
[2020-03-16] MEDS: METHOCARBAMOL 500 MG TABLET PO PRN (13:03)
[2020-03-16] MEDS ORDERED: POTASSIUM CHLORIDE TABS 20 MEQ TABLET.ER (FP) PO ONE (14:08)
[2020-03-16] MEDS: THIAMINE HCL 100 MG TABLET (FP) PO SCH (22:27)
[2020-03-16] MEDS: MELATONIN 5 MG TABLETS PO SCH (22:28)
[2020-03-16] MEDS: MONTELUKAST NA 10 MG TABLET PO SCH (23:02)
[2020-03-16] MEDS: QUEtiapine FUMARATE 50 MG TABLET PO SCH (23:03)
[2020-03-16] MEDS: POTASSIUM CHLORIDE TABS 20 MEQ TABLET.ER (FP) PO SCH (23:03)
[2020-03-16] MEDS: LIDOCAINE PATCH REMOVAL MC SCH (23:03)
[2020-03-17] MEDS ORDERED: chlordiazePOXIDE HCL 10 MG CAPSULE PO PRN
[2020-03-17] MEDS ORDERED: chlordiazePOXIDE HCL 10 MG CAPSULE PO SCH (05:00)
[2020-03-17] MEDS ORDERED: diazePAM 5 MG TABLET PO ONE (06:00)
[2020-03-17] MEDS: hydrOXYzine PAMOATE 25 MG CAPSULE (FP) PO SCH ×5 (08:13→21:26)
[2020-03-17] MEDS: POTASSIUM CHLORIDE TABS 20 MEQ TABLET.ER (FP) PO SCH ×2 (10:42→21:26)
[2020-03-17] MEDS: PRENATAL VITAMINS W/ FOLIC ACID TABLET (FP) PO SCH (10:42)
[2020-03-17] MEDS: LIDOCAINE 5% TOPICAL PATCH TP SCH (10:42)
[2020-03-17] MEDS: NICOTINE 7 MG/24 HOURS TOPICAL PATCH TD SCH (10:44)
[2020-03-17] MEDS: METHOCARBAMOL 500 MG TABLET PO PRN (10:47)
[2020-03-17] MEDS: BUDESONIDE/FORMETEROL FUMARATE 160/4.5 mcg INHALER IH SCH ×2 (10:49→21:30)
[2020-03-17] MEDS: METHYL SALICYLATE/MENTHOL OINT 30 GM TUBE TP SCH ×2 (10:49→21:25)
[2020-03-17] MEDS: NAPROXEN 375 MG TABLET PO PRN ×2 (10:53→21:28)
--- NOTE | 2020-03-17 14:16 | PN ---
S CIWA - CIWA Score Nausea/Vomitin-No Nausea/No Vomiting Muscle Tremors: 3 Anxiety: 5 Agitation: 4-Moderately Restless Paroxysmal Sweats: 1-Minimal Palms Moist Orientation: 0-Oriented Tacttile Disturbances: 0-None Auditory Disturbances: 0-None Visual Disturbances: 0-None Headache: 0-None Present CIWA-Ar Total Score: 13 [facility] Progress Note (SOAP) Subjective: c/o anxiety,irritability,body aches, dry skin. Hx Acid reflux and wants to restart protonix. reports injury to left ankle "2 days ago at home". Objective: 03/17/20 14:12 Vital Signs - 24 hr 03/16/20 03/16/20 03/17/20 17:05 20:30 07:20 Temperature 98.0 F 97.1 F L 97.6 F Pulse Rate 90 89 78 Respiratory 16 16 18 Rate Blood Pressure 135/82 141/85 116/71 O2 Sat by Pulse 98 97 Oximetry (%) 03/17/20 09:28 Temperature 98.0 F Pulse Rate 88 Respiratory 16 Rate Blood Pressure 124/73 O2 Sat by Pulse 95 Oximetry (%) Laboratory Tests 03/14/20 03/15/20 03/15/20 17:25 07:10 07:10 WBC 5.1 RBC 4.15 Hgb 13.2 Hct 41.3 MCV 99.5 H MCH 31.8 MCHC 32.0 RDW 14.8 Plt Count 256 MPV 8.1 Sodium Potassium Chloride Carbon Dioxide Anion Gap BUN Creatinine Est GFR (CKD-EPI)AfAm Est GFR (CKD-EPI)NonAf Random Glucose Calcium Total Bilirubin AST ALT Alkaline Phosphatase Total Protein Albumin Syphilis Serology Non-reactive COVID-19 (NICOLAS) Not detected 03/15/20 07:10 WBC RBC Hgb Hct MCV MCH MCHC RDW Plt Count MPV Sodium 146 H Potassium 3.2 L Chloride 111 H Carbon Dioxide 25 Anion Gap 10 BUN 10.2 Creatinine 0.9 Est GFR (CKD-EPI)AfAm 81.11 Est GFR (CKD-EPI)NonAf 69.99 Random Glucose 121 H Calcium 8.8 Total Bilirubin 0.4 AST 17 ALT 24 Alkaline Phosphatase 89 Total Protein 6.2 L Albumin 3.1 L Syphilis Serology COVID-19 (NICOLAS) covid-19 not detected alert o x 3 nad oob ambulating with steady gait 03/17/20 14:15 Assessment: 03/17/20 14:14 withdrawal sx Plan: continue detox increase po fluids maintain safety eucerin cream reorder protonix.
[2020-03-17] MEDS: HYDROCHLOROTHIAZIDE 12.5 MG CAPSULE (FP) PO SCH (14:22)
[2020-03-17] MEDS: PANTOPRAZOLE 40 MG TABLET PO SCH (14:48)
[2020-03-17] MEDS: ASPIRIN 81 MG CHEWABLE TABLETS PO SCH (14:48)
[2020-03-17] MEDS: MINERAL OIL/PETROLAT/WATER TOPICAL CREAM 113 GM JAR TP SCH (14:49)
[2020-03-17] MEDS: QUEtiapine FUMARATE 50 MG TABLET PO SCH (21:26)
[2020-03-17] MEDS: MELATONIN 5 MG TABLETS PO SCH (21:26)
[2020-03-17] MEDS: MONTELUKAST NA 10 MG TABLET PO SCH (21:26)
[2020-03-17] MEDS: THIAMINE HCL 100 MG TABLET (FP) PO SCH (21:26)
[2020-03-17] MEDS: LIDOCAINE PATCH REMOVAL MC SCH (21:27)
[2020-03-17] MEDS: ATORVASTATIN CA 10 MG TABLET (FP) PO SCH (21:27)
[2020-03-18] MEDS: ACETAMINOPHEN 325 MG TABLET (FP) PO PRN (00:31)
[2020-03-18] MEDS ORDERED: chlordiazePOXIDE HCL 10 MG CAPSULE PO SCH (05:00)
[2020-03-18] MEDS: hydrOXYzine PAMOATE 25 MG CAPSULE (FP) PO SCH ×5 (06:41→22:16)
[2020-03-18] MEDS: ASPIRIN 81 MG CHEWABLE TABLETS PO SCH (10:54)
[2020-03-18] MEDS: LIDOCAINE 5% TOPICAL PATCH TP SCH ×2 (10:54→11:01)
[2020-03-18] MEDS: HYDROCHLOROTHIAZIDE 12.5 MG CAPSULE (FP) PO SCH (10:54)
[2020-03-18] MEDS: PRENATAL VITAMINS W/ FOLIC ACID TABLET (FP) PO SCH (10:54)
[2020-03-18] MEDS: POTASSIUM CHLORIDE TABS 20 MEQ TABLET.ER (FP) PO SCH ×2 (10:54→22:15)
[2020-03-18] MEDS: PANTOPRAZOLE 40 MG TABLET PO SCH (10:54)
[2020-03-18] MEDS: NICOTINE 7 MG/24 HOURS TOPICAL PATCH TD SCH (10:55)
[2020-03-18] MEDS: BUDESONIDE/FORMETEROL FUMARATE 160/4.5 mcg INHALER IH SCH ×3 (10:56→22:12)
[2020-03-18] MEDS: METHYL SALICYLATE/MENTHOL OINT 30 GM TUBE TP SCH ×2 (11:01→22:17)
[2020-03-18] MEDS: MINERAL OIL/PETROLAT/WATER TOPICAL CREAM 113 GM JAR TP SCH (11:01)
--- NOTE | 2020-03-18 11:52 | PN ---
[facility] CIWA - CIWA Score Nausea/Vomitin-No Nausea/No Vomiting Muscle Tremors: None Anxiety: 2 Agitation: 0-Normal Activity Paroxysmal Sweats: 2 Orientation: 0-Oriented Tacttile Disturbances: 0-None Auditory Disturbances: 0-None Visual Disturbances: 0-None Headache: 0-None Present CIWA-Ar Total Score: 4 [facility] Progress Note (SOAP) Subjective: c/o mild withdrawal symptoms. Objective: 03/18/20 11:49 Vital Signs 03/18/20 03/18/20 03/18/20 07:08 07:40 09:02 Temperature 96.7 F L 98 F Pulse Rate 73 87 82 Respiratory 18 18 Rate Blood Pressure 156/96 131/86 126/82 O2 Sat by Pulse 99 97 Oximetry (%) Laboratory Last Values WBC 5.1 K/mm3 (4.0-10.0) 03/15/20 07:10 RBC 4.15 M/mm3 (3.60-5.2) 03/15/20 07:10 Hgb 13.2 GM/dL (10.7-15.3) 03/15/20 07:10 Hct 41.3 % (32.4-45.2) 03/15/20 07:10 MCV 99.5 fl (80-96) H 03/15/20 07:10 MCH 31.8 pg (25.7-33.7) 03/15/20 07:10 MCHC 32.0 g/dl (32.0-36.0) 03/15/20 07:10 RDW 14.8 % (11.6-15.6) 03/15/20 07:10 Plt Count 256 K/MM3 (134-434) 03/15/20 07:10 MPV 8.1 fl (7.5-11.1) 03/15/20 07:10 Sodium 146 mmol/L (136-145) H 03/15/20 07:10 Potassium 3.2 mmol/L (3.5-5.1) L 03/15/20 07:10 Chloride 111 mmol/L (98-107) H 03/15/20 07:10 Carbon Dioxide 25 mmol/L (21-32) 03/15/20 07:10 Anion Gap 10 MMOL/L (8-16) 03/15/20 07:10 BUN 10.2 mg/dL (7-18) 03/15/20 07:10 Creatinine 0.9 mg/dL (0.55-1.3) 03/15/20 07:10 Est GFR (CKD-EPI)AfAm 81.11 03/15/20 07:10 Est GFR (CKD-EPI)NonAf 69.99 03/15/20 07:10 Random Glucose 121 mg/dL (74-106) H 03/15/20 07:10 Calcium 8.8 mg/dL (8.5-10.1) 03/15/20 07:10 Total Bilirubin 0.4 mg/dL (0.2-1) 03/15/20 07:10 AST 17 U/L (15-37) 03/15/20 07:10 ALT 24 U/L (13-61) 03/15/20 07:10 Alkaline Phosphatase 89 U/L (45-117) 03/15/20 07:10 Total Protein 6.2 g/dl (6.4-8.2) L 03/15/20 07:10 Albumin 3.1 g/dl (3.4-5.0) L 03/15/20 07:10 Syphilis Serology Non-reactive (NONREACTIVE) 03/15/20 07:10 COVID-19 (NICOLAS) Not detected (Not Detected) 03/14/20 17:25 Labs noted. Assessment: 03/18/20 11:50 AOx 3, in no acute respiratory distress. Full ROM, ambulating in the unit. mild Withdrawal symptoms. For d/c tomorrow to [facility]. Plan: D/C tomorrow to [facility].
[2020-03-18] MEDS: NAPROXEN 375 MG TABLET PO PRN (22:15)
[2020-03-18] MEDS: MONTELUKAST NA 10 MG TABLET PO SCH (22:15)
[2020-03-18] MEDS: ATORVASTATIN CA 10 MG TABLET (FP) PO SCH (22:15)
[2020-03-18] MEDS: THIAMINE HCL 100 MG TABLET (FP) PO SCH (22:15)
[2020-03-18] MEDS: MELATONIN 5 MG TABLETS PO SCH (22:16)
[2020-03-18] MEDS: LIDOCAINE PATCH REMOVAL MC SCH (22:17)
[2020-03-18] MEDS: QUEtiapine FUMARATE 50 MG TABLET PO SCH (23:53)
[2020-03-19] MEDS ORDERED: chlordiazePOXIDE HCL 10 MG CAPSULE PO ONE (05:00)
[2020-03-19] MEDS: hydrOXYzine PAMOATE 25 MG CAPSULE (FP) PO SCH ×2 (06:33→09:45)
--- NOTE | 2020-03-19 09:41 | PN ---
[facility] Progress Note Note: Patient is scheduled for discharge today. Script for 30 days supply of Seroquel 50 mg/hs is electronically transmitted to [facility], [address] [place] [id number]
[2020-03-19 09:43] VITALS: BP 156/80; PULSE 78; TEMP 97.1
[2020-03-19] MEDS: PANTOPRAZOLE 40 MG TABLET PO SCH (09:43)
[2020-03-19] MEDS: HYDROCHLOROTHIAZIDE 12.5 MG CAPSULE (FP) PO SCH (09:43)
[2020-03-19] MEDS: POTASSIUM CHLORIDE TABS 20 MEQ TABLET.ER (FP) PO SCH (09:43)
[2020-03-19] MEDS: PRENATAL VITAMINS W/ FOLIC ACID TABLET (FP) PO SCH (09:44)
[2020-03-19] MEDS: METHYL SALICYLATE/MENTHOL OINT 30 GM TUBE TP SCH (09:44)
[2020-03-19] MEDS: ASPIRIN 81 MG CHEWABLE TABLETS PO SCH (09:44)
[2020-03-19] MEDS: MINERAL OIL/PETROLAT/WATER TOPICAL CREAM 113 GM JAR TP SCH (09:44)
[2020-03-19] MEDS: NICOTINE 7 MG/24 HOURS TOPICAL PATCH TD SCH ×2 (09:44→10:14)
[2020-03-19] MEDS: BUDESONIDE/FORMETEROL FUMARATE 160/4.5 mcg INHALER IH SCH (09:45)
[2020-03-19] MEDS: LIDOCAINE 5% TOPICAL PATCH TP SCH (09:45)
--- NOTE | 2020-03-19 11:11 | DS ---
[facility] Detox Discharge Summary Admission Date: 03/14/20 Discharge Date: 03/19/20 - History Present History: Alcohol Dependence, Cocaine Dependence Additional Comments: Pt completed detox successfully, discharged to [facility] ([facility] as per patient); patient is stable for discharge to Rehab. Instructed to follow up with PCP within 1 week after completing rehab. Patient denies any complaints. Pertinent Past History: DM ?? (not on meds) HLD HTN Asthma GERD Nicotine dependence Depression Bipolar disorder - Physical Exam Results Vital Signs: Vital Signs Temperature 97.1 F L 03/19/20 08:51 Pulse Rate 78 03/19/20 08:51 Respiratory Rate 20 03/19/20 08:51 Blood Pressure 156/80 03/19/20 08:51 O2 Sat by Pulse Oximetry (%) 96 03/19/20 07:00 On HCTZ for HTN Pertinent Admission Physical Exam Findings: Withdrawal sxs Laboratory Tests 03/14/20 03/15/20 03/15/20 17:25 07:10 07:10 WBC 5.1 RBC 4.15 Hgb 13.2 Hct 41.3 MCV 99.5 H MCH 31.8 MCHC 32.0 RDW 14.8 Plt Count 256 MPV 8.1 Sodium Potassium Chloride Carbon Dioxide Anion Gap BUN Creatinine Est GFR (CKD-EPI)AfAm Est GFR (CKD-EPI)NonAf Random Glucose Calcium Total Bilirubin AST ALT Alkaline Phosphatase Total Protein Albumin Syphilis Serology Non-reactive COVID-19 (NICOLAS) Not detected 03/15/20 03/19/20 07:10 07:00 WBC RBC Hgb Hct MCV MCH MCHC RDW Plt Count MPV Sodium 146 H Potassium 3.2 L 4.7 Chloride 111 H Carbon Dioxide 25 Anion Gap 10 BUN 10.2 Creatinine 0.9 Est GFR (CKD-EPI)AfAm 81.11 Est GFR (CKD-EPI)NonAf 69.99 Random Glucose 121 H Calcium 8.8 Total Bilirubin 0.4 AST 17 ALT 24 Alkaline Phosphatase 89 Total Protein 6.2 L Albumin 3.1 L Syphilis Serology COVID-19 (NICOLAS) Labs reviewed - Treatment Hospital Course: Detox Protocol Followed, Detoxed Safely, Responded well, Discharged Condition Good, Rehab Referral Accepted - Medication Discharge Medications: Ambulatory Orders Multivitamin [Multiple Vitamins] 1 each PO DAILY 02/12/19 Montelukast Na [Singulair -] 10 mg PO HS #30 tablet 08/30/19 Quetiapine Fumarate [Seroquel -] 50 mg PO HS #30 tablet 08/30/19 Albuterol Sulfate Inhaler - [Ventolin HFA Inhaler -] 2 puff IH Q4H PRN #1 inhaler 11/05/19 Atorvastatin Ca [Lipitor] 10 mg PO HS #30 tablet 11/05/19 Budesonide/Formeterol Fumarate [SYMBICORT 160/4.5mcg -] 2 puff IH BID #1 inhaler 11/05/19 Hydrochlorothiazide [Hctz -] 12.5 mg PO DAILY #30 cap 11/05/19 Aspirin 81 mg PO DAILY 03/17/20 Pantoprazole Sodium [Protonix] 40 mg PO DAILY 03/17/20 Quetiapine Fumarate [Seroquel -] 50 mg PO HS #30 tablet 03/19/20 - Diagnosis (1) Hypokalemia Current Visit: Yes Status: Resolved (2) Asthma Current Visit: Yes Status: Chronic Qualifiers: Asthma severity: mild Asthma persistence: intermittent Asthma complication type: uncomplicated Qualified Code(s): J45.20 - Mild intermittent asthma, uncomplicated (3) Bipolar disorder Current Visit: Yes Status: Chronic Qualifiers: Active/Remission status: remission status unspecified Qualified Code(s): F31.9 - Bipolar disorder, unspecified (4) GERD (gastroesophageal reflux disease) Current Visit: Yes Status: Chronic Qualifiers: Esophagitis presence: without esophagitis Qualified Code(s): K21.9 - Gastro-esophageal reflux disease without esophagitis (5) Hypercholesterolemia Current Visit: Yes Status: Chronic (6) Hypertension Current Visit: Yes Status: Chronic Qualifiers: Hypertension type: essential hypertension Qualified Code(s): I10 - Essential (primary) hypertension (7) Nicotine dependence Current Visit: Yes Status: Chronic Qualifiers: Nicotine product type: cigarettes Substance use status: uncomplicated Qualified Code(s): F17.210 - Nicotine dependence, cigarettes, uncomplicated (8) Obesity (BMI 30.0-34.9) Current Visit: Yes Status: Chronic (9) Left ankle sprain Current Visit: Yes Status: Acute - AMA Did Patient Leave Against Medical Advice: No (Patient accepted admission to [facility])
== END 2020-03-19 10:30 | disposition other institution (70) | DRG 774 ==
LOC: YASAS 10:19 → Y5N DETOX 16:47
PROVIDERS: ADMIT Allergy & Immunology; ATTEND Allergy & Immunology
PROC: HZ2ZZZZ Detoxification Services for Substance Abuse Treatment (ICD-10-PCS; principal; 2020-03-14)
DX: F10.230 Alcohol dependence with withdrawal, uncomplicated (principal); F14.20 Cocaine dependence, uncomplicated; F17.210 Nicotine dependence, cigarettes, uncomplicated; F19.280 Other psychoactive substance dependence with psychoactive substance-induced anxiety disorder; F19.282 Other psychoactive substance dependence with psychoactive substance-induced sleep disorder; F25.9 Schizoaffective disorder, unspecified; F31.9 Bipolar disorder, unspecified; F43.10 Post-traumatic stress disorder, unspecified; I10 Essential (primary) hypertension; D64.9 Anemia, unspecified; E87.6 Hypokalemia; E11.9 Type 2 diabetes mellitus without complications; J43.8 Other emphysema; J45.20 Mild intermittent asthma, uncomplicated; K21.9 Gastro-esophageal reflux disease without esophagitis; M17.0 Bilateral primary osteoarthritis of knee; M54.6 Pain in thoracic spine; G89.29 Other chronic pain; Z62.810 Personal history of physical and sexual abuse in childhood; Z99.89 Dependence on other enabling machines and devices; E66.9 Obesity, unspecified; Z68.33 Body mass index [BMI] 33.0-33.9, adult; Z79.82 Long term (current) use of aspirin; Z56.0 Unemployment, unspecified; S93.402A Sprain of unspecified ligament of left ankle, initial encounter; X58.XXXA Exposure to other specified factors, initial encounter; Y93.9 Activity, unspecified; Y92.89 Other specified places as the place of occurrence of the external cause; Y99.8 Other external cause status; Z59.0 Homelessness
CPT/HCPCS: 36415; 80053; 84132; 85027; 86780; 93005; 93010; U0003

== ENCOUNTER 2020-03-14 10:58 | Emergency (ER) | payer OTHER ==
--- NOTE | 2020-03-14 11:09 | PDOC ---
Rapid Medical Evaluation Chief Complaint: Pain, Acute Time Seen by Provider: 03/14/20 11:05 Medical Evaluation: Allergies Allergy/AdvReac Type Severity Reaction Status Date / Time mushroom Allergy Severe Rash Verified 11/02/19 23:34 No Known Drug Allergies Allergy Verified 11/02/19 23:34 03/14/20 11:06 CC: intermittent swelling and pain to left snkle x 1 month, sent from [facility] to r/o fx and then send back, pt denies injury Exam: noted 2 + edema to left ankle, mid foot. no tenderness Plan: xray ankle Discharge Disposition - Diagnosis Edema - Discharge Dispostion Condition at time of disposition: Stable - Referrals - Patient Instructions - Post Discharge Activity
[2020-03-14 11:10] VITALS: BP 136/83; PULSE 95; TEMP 98.4; BMI 32.3
--- NOTE | 2020-03-14 11:36 | PDOC ---
History of Present Illness - General Chief Complaint: Pain, Acute Stated Complaint: LT LEG PAIN Time Seen by Provider: 03/14/20 11:05 History Source: Patient Exam Limitations: Clinical Condition - History of Present Illness Initial Comments: 03/14/20 11:32 Patient with polysubstance abuse being seen by rehab [facility] for rehab sent in for evaluation of left ankle swelling and pain for a month. Patient report does not know what happened to her ankle. Patient currently on hydrochlorothiazide for hypertension. Denies any trauma or injury to ankle. Patient reported swelling has been intermittent and localized to left ankle for a month. Reported increased pain to left ankle with ambulation Occurred: reports: other (1 month) Past History - Medical History Allergies/Adverse Reactions: Allergies Allergy/AdvReac Type Severity Reaction Status Date / Time mushroom Allergy Severe Rash Verified 03/14/20 11:31 No Known Drug Allergies Allergy Verified 03/14/20 11:31 Home Medications: Ambulatory Orders Folic Acid 1 mg PO DAILY 02/12/19 Multivitamin [Multiple Vitamins] 1 each PO DAILY 02/12/19 Thiamine Mononitrate [Vitamin B-1] 100 mg PO DAILY 02/12/19 Ibuprofen [Motrin -] 600 mg PO TID PRN 03/19/19 Vitamin B Complex [B Complex] 1 each PO DAILY 08/21/19 Ascorbate Calcium [Vitamin C] 500 mg PO DAILY #14 tablet 08/30/19 Montelukast Na [Singulair -] 10 mg PO HS #30 tablet 08/30/19 Pantoprazole Sodium [Protonix -] 40 mg PO DAILY #14 tablet.ec 08/30/19 Quetiapine Fumarate [Seroquel -] 50 mg PO HS #30 tablet 08/30/19 Sertraline HCl [Zoloft -] 50 mg PO HS #30 tablet 08/30/19 Amoxicillin - [Amoxicillin 500mg Capsule -] 500 mg PO TID 11/02/19 Albuterol Sulfate Inhaler - [Ventolin HFA Inhaler -] 2 puff IH Q4H PRN #1 inhaler 11/05/19 Amlodipine Besylate [Norvasc -] 5 mg PO DAILY #14 tablet 11/05/19 Amoxicillin - [Amoxicillin 250mg Capsule -] 250 mg PO BID #10 capsule 11/05/19 Aspirin [ASA -] 81 mg PO DAILY #30 tab.chew 11/05/19 Atorvastatin Ca [Lipitor] 10 mg PO HS #30 tablet 11/05/19 Budesonide/Formeterol Fumarate [SYMBICORT 160/4.5mcg -] 2 puff IH BID #1 inhaler 11/05/19 Hydrochlorothiazide [Hctz -] 12.5 mg PO DAILY #30 cap 11/05/19 Metformin HCl [Glucophage] 500 mg PO BID #30 tablet 11/05/19 Meloxicam [Mobic] 15 mg PO DAILY PRN #12 tablet 03/14/20 Anemia: Yes (Ferrous sulfate, Vitamins) Asthma: Yes Cancer: No Cardiac Disorders: No CVA: No COPD: No CHF: No Dementia: No Diabetes: No GI Disorders: No Disorders: No HTN: Yes Hypercholesterolemia: Yes Kidney Stones: No Liver Disease: No Seizures: No Thyroid Disease: No - Surgical History Abdominal Surgery: No Appendectomy: No Cardiac Surgery: No Cholecystectomy: No Lung Surgery: No Neurologic Surgery: No Orthopedic Surgery: Yes (right ankle fx at age 18) - Reproductive History PID: No - Immunization History Immunization Up to Date: No - Psycho-Social/Smoking History Smoking History: Current every day smoker Have you smoked in the past 12 months: Yes Number of Cigarettes Smoked Daily: 10 Cigars Per Day: 0 Information on smoking cessation initiated: No 'Breaking Loose' booklet given: 11/02/19 - Substance Abuse Hx (Audit-C & DAST Scrn) How often the patient has a drink containing alcohol: 4 0r more times/wk Number of drinks the patient has on a typical day: 7 to 9 How often the patient has six or more drinks on one occasion: Daily or almost daily Score: In Men: 4 or > Positive; In Women: 3 or > Positive: 11 Screen Result (Pos requires Nsg. Audit-10AR): Positive In the last yr the pt used illegal drug/Rx for NonMed reason: No Score: Yes response is considered Positive: 0 Screen Result (Positive result requires Nsg. DAST-10): Negative Trauma Specific PMHX - Complaint Specific PMHX Arthritis: Yes (both kness) Review of Systems - Review of Systems Able to Perform ROS?: Yes Is the patient limited Greenlandic proficient: No Constitutional: No: Chills, Fever, Malaise HEENTM: No: Symptoms Reported, See HPI, Eye Pain, Blurred Vision, Tearing, Recent change in vision, Double Vision, Cataracts, Ear Pain, Ocular Prothesis, Ear Discharge, Nose Pain, Nose Congestion, Tinnitus, Nose Bleeding, Hearing Loss, Throat Pain, Throat Swelling, Mouth Pain, Dental Problems, Difficulty Swallowing, Mouth Swelling, Other Respiratory: No: Symptoms reported, See HPI, Cough, Orthopnea, Shortness of Breath, SOB with Exertion, SOB at Rest, Stridor, Wheezing, Productive cough, Hemoptysis, Other Cardiac (ROS): No: Symptoms Reported Musculoskeletal: Yes: Symptoms Reported, See HPI, Joint Pain (Left ankle), Joint Swelling (Left ankle) Integumentary: Yes: Symptoms Reported, See HPI, Other (Swelling to left ankle). No: Change in Color, Erythema Neurological: No: Numbness, Paresthesia, Tingling All Other Systems: Reviewed and Negative *Physical Exam - Vital Signs Last Vital Signs Temp Pulse Resp BP Pulse Ox 98.4 F 95 H 16 136/83 98 03/14/20 11:06 03/14/20 11:06 03/14/20 11:06 03/14/20 11:06 03/14/20 11:06 - Physical Exam 03/14/20 11:35 GENERAL: Well developed, well nourished. Awake and alert. No acute distress. PULMONARY: No evidence of respiratory distress. MUSCULOSKELETAL : mild tenderness over lateral malleolus of left ankle with moderate swelling to left ankle and foot. No skin erythema. Negative anterior and posterior drawer test of left ankle. SKIN: Warm and dry. Normal capillary refill. 2+ swelling to left ankle and foot NEUROLOGICAL: Alert, awake, appropriate. No motor deficits in the lower extremities. Gait is normal without ataxia. PSYCHIATRIC: Cooperative. Good eye contact. Appropriate mood and affect. General Appearance: Yes: Nourished, Appropriately Dressed. No: Apparent Distress Medical Decision Making - Medical Decision Making 03/14/20 11:34 Patient with polysubstance abuse being seen by rehab [facility] for rehab sent in for evaluation of left ankle swelling and pain for a month. Patient report does not know what happened to her ankle. Patient currently on hydrochlorothiazide for hypertension. Denies any trauma or injury to ankle. Patient reported swelling has been intermittent and localized to left ankle for a month. Reported increased pain to left ankle with ambulation Exam significant for 2+ edema to left ankle and foot. No swelling to left lower leg or calf muscle. No tenderness to left calf muscle. Mild tenderness to palpation to lateral malleolus of left ankle. Negative anterior posterior drawer test of left ankle. No skin erythema to left ankle. Symptoms likely ankle sprain versus pitting edema from venous insufficiency. X-ray of left ankle and foot ordered to rule out acute abnormality 03/14/20 12:38 X-ray of left ankle and foot shows no acute fracture or abnormality. Patient ankle likely ankle sprain and stable for discharge on meloxicam PRN for pain advised to do hot compresses and warm soaks and keep leg elevated with orthopedics follow-up as needed. Patient stable for transfer back to [facility] rehab Discharge - Discharge Information Problems reviewed: Yes Clinical Impression/Diagnosis: Left ankle swelling Condition: Stable Disposition: HOME - Admission No - Additional Discharge Information Prescriptions: Meloxicam [Mobic] 15 mg PO DAILY PRN #12 tablet PRN Reason: ankle pain - Follow up/Referral - Patient Discharge Instructions Patient Printed Discharge Instructions: DI for Ankle Sprain Additional Instructions: X-ray of your ankle and foot shows no acute fracture or dislocation. Your ankle swelling is likely caused by sprain. Take prescribed medication as needed for pain. Keep left ankle elevated to help with swelling and apply heat to ankle as needed for swelling. Soak left foot in [place] salt water as needed to help with swelling. Follow-up with orthopedics as needed - Post Discharge Activity
== END 2020-03-14 12:35 | disposition home or self-care (01) ==
LOC: JERFT 10:58
DX: R60.0 Localized edema (principal)
CPT/HCPCS: 73610-TC-LT-FY; 99285-25

== ENCOUNTER 2023-05-06 15:53 | Inpatient (IN) | payer OTHER ==
[2023-05-06 17:17] VITALS: BMI 23.4
[2023-05-06] MEDS ORDERED: MAGNESIUM HYDROX 2400MG/30ML ORAL SUSPENSION 30 ML CUP PO PRN (18:21)
[2023-05-06] MEDS ORDERED: IBUPROFEN 400 MG TABLET (FP) PO PRN (18:21)
[2023-05-06] MEDS ORDERED: BENZOCAINE/MENTHOL (CHLORASEPTIC ) LOZENGE MM PRN (18:21)
[2023-05-06] MEDS ORDERED: IBUPROFEN 600 MG TABLET (FP) PO PRN (18:21)
[2023-05-06] MEDS ORDERED: METHOCARBAMOL 500 MG TABLET PO PRN (18:21)
[2023-05-06] MEDS ORDERED: BISMUTH SUBSALICYLATE 524 MG/30 ML PO PRN (18:21)
[2023-05-06] MEDS ORDERED: NALOXONE HCL 0.4 MG/ML VIAL IM PRN (18:21)
[2023-05-06] MEDS ORDERED: MAG HYDROX/AL HYDROX/SIMETH 30 ML UNIT-DOSE CUP PO PRN (18:21)
[2023-05-06] MEDS ORDERED: NICOTINE POLACRILEX 2 MG GUM BUC PRN (18:21)
[2023-05-06] MEDS ORDERED: DICYCLOMINE HCL 10 MG CAPSULE PO PRN (18:21)
[2023-05-06] MEDS ORDERED: ACETAMINOPHEN 325 MG TABLET (FP) PO PRN (18:21)
[2023-05-06] MEDS ORDERED: BENZONATATE 200 MG CAPSULE PO PRN (18:21)
[2023-05-06] MEDS ORDERED: ONDANSETRON *ODT* 4 MG TABLET SL PRN (18:21)
[2023-05-06] MEDS ORDERED: NALOXONE HCL (KLOXXADO) 8 MG SPRAY NS PRN (18:21)
[2023-05-06] MEDS ORDERED: POLYETHYLENE GLYCOL (HEALTHYLAX) 3350 17 GM PACKET PO PRN (18:21)
[2023-05-06] MEDS ORDERED: hydrOXYzine PAMOATE 25 MG CAPSULE (FP) PO PRN (18:21)
[2023-05-06] MEDS ORDERED: LOPERAMIDE HCL 2 MG CAPSULE PO PRN (18:21)
[2023-05-06] MEDS ORDERED: ALBUTEROL SO4 HFA INHALER IH PRN (19:15)
[2023-05-06] MEDS ORDERED: ATORVASTATIN CA 20 MG TABLET (FP) PO SCH (22:00)
[2023-05-06] MEDS ORDERED: MELATONIN 5 MG TABLETS PO SCH (22:00)
[2023-05-06] MEDS ORDERED: THIAMINE HCL 100 MG TABLET (FP) PO SCH (22:00)
[2023-05-06] MEDS ORDERED: MONTELUKAST NA 10 MG TABLET PO SCH (22:00)
[2023-05-06] MEDS: BUDESONIDE/FORMETEROL FUMARATE 160/4.5 mcg INHALER IH SCH (22:32)
[2023-05-06] MEDS: AMOX TR/POT CLAV 875MG/125MG TABLETS (FP) PO SCH (22:34)
[2023-05-06] MEDS: guaiFENesin 600 MG TABLET.ER (FP) PO PRN (22:56)
[2023-05-07] MEDS: AMOX TR/POT CLAV 875MG/125MG TABLETS (FP) PO SCH (07:19)
[2023-05-07 09:01] VITALS: RESP 18
[2023-05-07] MEDS ORDERED: HYDROCHLOROTHIAZIDE 12.5 MG CAPSULE (FP) PO SCH (10:00)
[2023-05-07] MEDS ORDERED: PRENATAL VITAMINS W/ FOLIC ACID TABLET (FP) PO SCH (10:00)
[2023-05-07] MEDS ORDERED: PANTOPRAZOLE 40 MG TABLET PO SCH (10:00)
[2023-05-07] MEDS ORDERED: NICOTINE 14 MG/24 HOURS TOPICAL PATCH TD SCH (10:00)
[2023-05-07] MEDS ORDERED: ASPIRIN 81 MG CHEWABLE TABLETS PO SCH (10:00)
[2023-05-07] MEDS: BUDESONIDE/FORMETEROL FUMARATE 160/4.5 mcg INHALER IH SCH (10:35)
[2023-05-07] MEDS: guaiFENesin 600 MG TABLET.ER (FP) PO PRN (11:57)
[2023-05-07 12:59] VITALS: BP 161/94; PULSE 71; TEMP 97.5
[2023-05-07] MEDS ORDERED: LOSARTAN POTASSIUM 50 MG TABLET PO SCH (13:00)
[2023-05-07 14:38] LABS: HEMATOCRIT 39.3 % (32.4-45.2); HEMOGLOBIN 13.1 GM/dL (10.7-15.3); MCH 33.4 pg (25.7-33.7); MCHC 33.4 g/dl (32.0-36.0); MEAN PLT VOLUME 7.6 fl (7.5-11.1); PLATELET COUNT 292 10^3/uL (134-434); RBC 3.93 M/mm3 (3.60-5.2); RDW 14.8 % (11.6-15.6); WHITE BLOOD COUNT 3.8 K/mm3 (4.0-10.0)
[2023-05-07 14:43] LABS: POTASSIUM 4.3 mmol/L (3.5-5.1)
[2023-05-07 14:48] LABS: ALBUMIN 3.1 g/dl (3.4-5.0); CALCIUM 8.9 mg/dL (8.5-10.1)
[2023-05-07 14:49] LABS: BLOOD UREA NITROGEN 16.4 mg/dL (7-18)
[2023-05-07 14:51] LABS: CREATININE 0.9 mg/dL (0.55-1.3)
[2023-05-07 14:53] LABS: BILIRUBIN,TOTAL 0.3 mg/dL (0.2-1); TOT PROT 6.7 g/dl (6.4-8.2)
[2023-05-07] MEDS ORDERED: SERTRALINE HCL 50 MG TABLET (FP) PO SCH (22:00)
[2023-05-08 11:51] LABS: HIV INTERPRETATION NEGATIVE (NEGATIVE)
== END 2023-05-07 15:42 | disposition other institution (70) | DRG 774 ==
LOC: YASAS 15:53 → Y3N 19:14
PROVIDERS: ADMIT Allergy & Immunology; ATTEND Surgery
PROC: HZ2ZZZZ Detoxification Services for Substance Abuse Treatment (ICD-10-PCS; principal; 2023-05-06)
DX: F10.230 Alcohol dependence with withdrawal, uncomplicated (principal); F14.20 Cocaine dependence, uncomplicated; F17.210 Nicotine dependence, cigarettes, uncomplicated; F19.24 Other psychoactive substance dependence with psychoactive substance-induced mood disorder; F41.9 Anxiety disorder, unspecified; F32.A Depression, unspecified; E78.5 Hyperlipidemia, unspecified; I10 Essential (primary) hypertension; J44.0 Chronic obstructive pulmonary disease with (acute) lower respiratory infection; M17.0 Bilateral primary osteoarthritis of knee; M54.6 Pain in thoracic spine; G89.29 Other chronic pain
CPT/HCPCS: 36415; 80053; 82962; 85027; 86780; 87389; 87635

== ENCOUNTER 2024-01-21 16:52 | Inpatient (IN) | payer OTHER ==
[2024-01-21 19:13] VITALS: BMI 36.2
[2024-01-21] MEDS ORDERED: ACETAMINOPHEN 325 MG TABLET (FP) PO PRN (21:09)
[2024-01-21] MEDS ORDERED: NALOXONE HCL 0.4 MG/ML VIAL IM PRN (21:09)
[2024-01-21] MEDS ORDERED: NICOTINE POLACRILEX 2 MG LOZENGE BC PRN (21:09)
[2024-01-21] MEDS ORDERED: NALOXONE HCL (KLOXXADO) 8 MG SPRAY NS PRN (21:09)
[2024-01-21] MEDS ORDERED: hydrOXYzine PAMOATE 25 MG CAPSULE (FP) PO PRN (21:09)
[2024-01-21] MEDS ORDERED: IBUPROFEN 400 MG TABLET (FP) PO PRN (21:09)
[2024-01-21] MEDS ORDERED: BISMUTH SUBSALICYLATE 524 MG/30 ML PO PRN (21:09)
[2024-01-21] MEDS ORDERED: LOPERAMIDE HCL 2 MG CAPSULE PO PRN (21:09)
[2024-01-21] MEDS ORDERED: BENZONATATE 200 MG CAPSULE PO PRN (21:09)
[2024-01-21] MEDS ORDERED: DICYCLOMINE HCL 10 MG CAPSULE PO PRN (21:09)
[2024-01-21] MEDS ORDERED: POLYETHYLENE GLYCOL (HEALTHYLAX) 3350 17 GM PACKET PO PRN (21:09)
[2024-01-21] MEDS ORDERED: guaiFENesin 600 MG TABLET.ER (FP) PO PRN (21:09)
[2024-01-21] MEDS ORDERED: MAG HYDROX/AL HYDROX/SIMETH 30 ML UNIT-DOSE CUP PO PRN (21:09)
[2024-01-21] MEDS ORDERED: BENZOCAINE/MENTHOL (CHLORASEPTIC ) LOZENGE MM PRN (21:09)
[2024-01-21] MEDS ORDERED: ONDANSETRON *ODT* 4 MG TABLET SL PRN (21:09)
[2024-01-21] MEDS: BUDESONIDE/FORMETEROL FUMARATE 160/4.5 mcg INHALER IH SCH (22:37)
[2024-01-21] MEDS: ATORVASTATIN CA 20 MG TABLET (FP) PO SCH (22:38)
[2024-01-21] MEDS: MONTELUKAST NA 10 MG TABLET PO SCH (22:38)
[2024-01-21] MEDS: THIAMINE 100 MG TABLET PO SCH (22:39)
[2024-01-21] MEDS: MELATONIN 5 MG TABLETS PO SCH (22:39)
[2024-01-21] MEDS: IBUPROFEN 600 MG TABLET (FP) PO PRN (22:39)
[2024-01-22] MEDS: ALBUTEROL SO4 HFA INHALER IH PRN (09:52)
[2024-01-22] MEDS: ASPIRIN 81 MG CHEWABLE TABLETS PO SCH (09:52)
[2024-01-22] MEDS: HYDROCHLOROTHIAZIDE 12.5 MG CAPSULE (FP) PO SCH (09:52)
[2024-01-22] MEDS: PRENATAL VITAMINS W/ FOLIC ACID TABLET (FP) PO SCH (09:52)
[2024-01-22] MEDS: PANTOPRAZOLE 40 MG TABLET PO SCH (09:53)
[2024-01-22] MEDS: NICOTINE 14 MG/24 HOURS TOPICAL PATCH TD SCH (09:53)
[2024-01-22] MEDS: LOSARTAN POTASSIUM 50 MG TABLET PO SCH (09:53)
[2024-01-22 10:08] VITALS: PULSE 84
[2024-01-22] MEDS: METHOCARBAMOL 500 MG TABLET PO PRN (10:41)
[2024-01-22] MEDS: BISACODYL 5 MG TABLET.DR (FP) PO ONE (10:41)
[2024-01-22 11:42] LABS: CHLORIDE 105 mmol/L (98-107); POTASSIUM 4.5 mmol/L (3.5-5.1); SODIUM 139 mmol/L (136-145)
[2024-01-22 11:43] LABS: HEMOGLOBIN 12.2 GM/dL (10.7-15.3); MCH 32.2 pg (25.7-33.7); MCHC 33.1 g/dl (32.0-36.0); MEAN CELL VOLUME 97.1 fl (80-96); MEAN PLT VOLUME 7.6 fl (7.5-11.1); PLATELET COUNT 290 10^3/uL (134-434); RDW 14.5 % (11.6-15.6); WHITE BLOOD COUNT 3.8 K/mm3 (4.0-10.0)
[2024-01-22 11:49] LABS: ALBUMIN 3.3 g/dl (3.4-5.0); ANION GAP 2 mmol/L (4-13); BLOOD UREA NITROGEN 25.4 mg/dL (7-18); CALCIUM 9.1 mg/dL (8.5-10.1); CO2 31 mmol/L (21-32); GLUCOSE,RANDOM 99 mg/dL (74-106)
[2024-01-22 11:52] LABS: CREATININE 1.1 mg/dL (0.55-1.3); SGOT/AST 19 U/L (15-37); SGPT/ALT 26 U/L (13-61)
[2024-01-22 11:54] LABS: BILIRUBIN,TOTAL 0.4 mg/dL (0.2-1)
[2024-01-22 11:55] LABS: ALK PHOS 98 U/L (45-117)
[2024-01-22] MEDS: MAGNESIUM HYDROX 2400MG/30ML ORAL SUSPENSION 30 ML CUP PO PRN (13:16)
[2024-01-22 13:28] VITALS: BP 141/79; RESP 18; TEMP 98.1
[2024-01-22 18:09] LABS: HIV INTERPRETATION NEGATIVE (NEGATIVE)
[2024-01-22] MEDS ORDERED: QUEtiapine FUMARATE 50 MG TABLET PO SCH (22:00)
[2024-01-22] MEDS ORDERED: SERTRALINE HCL 50 MG TABLET (FP) PO SCH (22:00)
== END 2024-01-22 15:41 | disposition other institution (70) | DRG 774 ==
LOC: YASAS 16:52 → Y3N 21:54
PROVIDERS: ADMIT Allergy & Immunology; ATTEND Allergy & Immunology
PROC: HZ2ZZZZ Detoxification Services for Substance Abuse Treatment (ICD-10-PCS; principal; 2024-01-21)
DX: F10.230 Alcohol dependence with withdrawal, uncomplicated (principal); F14.20 Cocaine dependence, uncomplicated; F17.210 Nicotine dependence, cigarettes, uncomplicated; F25.9 Schizoaffective disorder, unspecified; F31.9 Bipolar disorder, unspecified; F19.24 Other psychoactive substance dependence with psychoactive substance-induced mood disorder; G47.00 Insomnia, unspecified; I10 Essential (primary) hypertension; K21.9 Gastro-esophageal reflux disease without esophagitis; M17.0 Bilateral primary osteoarthritis of knee; Z99.89 Dependence on other enabling machines and devices; Z62.810 Personal history of physical and sexual abuse in childhood; Z59.01 Sheltered homelessness; Z56.0 Unemployment, unspecified; Z86.11 Personal history of tuberculosis
CPT/HCPCS: 36415; 80053; 80305; 80307; 85027; 86780; 87389; 93005; 93010

== ENCOUNTER 2024-01-22 15:43 | Inpatient (IN) | payer OTHER ==
[2024-01-22] MEDS ORDERED: BENZONATATE 200 MG CAPSULE PO PRN (15:51)
[2024-01-22] MEDS ORDERED: NALOXONE (NYS OPIOID OVERDOSE PROGRAM) 4 MG/0.1 ML SPRAY NS PRN (15:51)
[2024-01-22] MEDS ORDERED: LOPERAMIDE HCL 2 MG CAPSULE PO PRN (15:51)
[2024-01-22] MEDS ORDERED: MAG HYDROX/AL HYDROX/SIMETH 30 ML UNIT-DOSE CUP PO PRN (15:51)
[2024-01-22] MEDS ORDERED: MAGNESIUM HYDROX 2400MG/30ML ORAL SUSPENSION 30 ML CUP PO PRN (15:51)
[2024-01-22] MEDS ORDERED: NALOXONE HCL 0.4 MG/ML VIAL IVPUSH PRN (15:51)
[2024-01-22] MEDS ORDERED: BENZOCAINE/MENTHOL (CHLORASEPTIC ) LOZENGE MM PRN (15:51)
[2024-01-22] MEDS ORDERED: IBUPROFEN 400 MG TABLET (FP) PO PRN (15:51)
[2024-01-22] MEDS ORDERED: guaiFENesin 600 MG TABLET.ER (FP) PO PRN (15:51)
[2024-01-22] MEDS ORDERED: POLYETHYLENE GLYCOL (HEALTHYLAX) 3350 17 GM PACKET PO PRN (15:51)
[2024-01-22] MEDS: NICOTINE 14 MG/24 HOURS TOPICAL PATCH TD SCH (16:56)
[2024-01-22] MEDS: PRENATAL VITAMINS W/ FOLIC ACID TABLET (FP) PO SCH (16:56)
[2024-01-22] MEDS ORDERED: BISACODYL 5 MG TABLET.DR (FP) PO PRN (19:41)
[2024-01-22] MEDS: hydrOXYzine PAMOATE 25 MG CAPSULE (FP) PO PRN (22:24)
[2024-01-22] MEDS: MELATONIN 5 MG TABLETS PO SCH (22:24)
[2024-01-22] MEDS: ATORVASTATIN CA 20 MG TABLET (FP) PO SCH (22:24)
[2024-01-22] MEDS: THIAMINE 100 MG TABLET PO SCH (22:24)
[2024-01-22] MEDS: SERTRALINE HCL 50 MG TABLET (FP) PO SCH (22:24)
[2024-01-22] MEDS: QUEtiapine FUMARATE 50 MG TABLET PO SCH (22:25)
[2024-01-22] MEDS: BUDESONIDE/FORMETEROL FUMARATE 160/4.5 mcg INHALER IH SCH (22:26)
[2024-01-22] MEDS: MONTELUKAST NA 10 MG TABLET PO SCH (22:26)
[2024-01-22] MEDS: METHOCARBAMOL 500 MG TABLET PO PRN (22:52)
[2024-01-22] MEDS: IBUPROFEN 600 MG TABLET (FP) PO PRN (22:52)
[2024-01-23] MEDS: ASPIRIN 81 MG CHEWABLE TABLETS PO SCH (10:36)
[2024-01-23] MEDS: LOSARTAN POTASSIUM 50 MG TABLET PO SCH (10:36)
[2024-01-23] MEDS: PANTOPRAZOLE 40 MG TABLET PO SCH (10:37)
[2024-01-23] MEDS: BISACODYL 5 MG TABLET.DR (FP) PO SCH (18:38)
[2024-01-23] MEDS: ALBUTEROL SO4 HFA INHALER IH PRN (21:11)
[2024-01-26] MEDS: HYDROCHLOROTHIAZIDE 12.5 MG CAPSULE (FP) PO SCH (13:11)
[2024-01-26] MEDS: PATIENT'S OWN MEDICATION (NON-FORMULARY) (Dextran 70/Hypromellose [Artificial Tears] 1 EAC OP SCH (13:17)
[2024-01-26] MEDS: LATANOPROST 0.005% OPHTH SOLN 2.5ML BOTTLE OU SCH (22:32)
[2024-01-27 07:57] VITALS: RESP 18
[2024-01-27] MEDS: ARTIFICIAL TEARS OPHTHALMIC DROPS OU SCH (10:26)
[2024-01-29] MEDS: ACETAMINOPHEN 325 MG TABLET (FP) PO PRN (01:11)
[2024-01-29] MEDS: METHOCARBAMOL 500 MG TABLET PO SCH (14:43)
[2024-02-01 07:19] VITALS: TEMP 97.4
[2024-02-02 09:27] VITALS: BP 147/78; PULSE 100
== END 2024-02-02 09:45 | disposition left against medical advice (07) | DRG 770 ==
LOC: YASAS 15:43 → Y3NR 15:44 → Y5N 20:57
PROVIDERS: ADMIT Allergy & Immunology; ATTEND Psychiatry & Neurology Pain Medicine
PROC: HZ42ZZZ Group Counseling for Substance Abuse Treatment, Cognitive-Behavioral (ICD-10-PCS; principal; 2024-01-22)
DX: F10.20 Alcohol dependence, uncomplicated (principal); F14.20 Cocaine dependence, uncomplicated; F17.210 Nicotine dependence, cigarettes, uncomplicated; F31.9 Bipolar disorder, unspecified; F41.9 Anxiety disorder, unspecified; I10 Essential (primary) hypertension; M17.0 Bilateral primary osteoarthritis of knee; R60.0 Localized edema; Z62.810 Personal history of physical and sexual abuse in childhood; Z86.11 Personal history of tuberculosis; Z59.01 Sheltered homelessness; F91.8 Other conduct disorders; Z91.199 Patient's noncompliance with other medical treatment and regimen due to unspecified reason
CPT/HCPCS: 71045-TC-FY